=== PATIENT | female | born 1950 | race Caucasian/White ===

== ENCOUNTER 2018-05-30 21:38 | Inpatient (IN) ==
[2018-05-30] MEDS ORDERED: Sod Chloride 0.9% Inj 1,000 ML IV.SIG ONE (22:12)
--- NOTE | 2018-05-30 22:24 | ED ---
HPI General Chief complaint: Weakness Stated complaint: Gen weakness/Evac Time Seen by Provider: 05/30/18 21:42 Source: patient and EMS Mode of arrival: EMS Limitations: no limitations History of Present Illness HPI Narrative: 67-year-old female that presents to the ED for evaluation of weakness. Per ambulance report and patient she has not been able to get up and has been feeling weak for about 2-3 weeks now. Per patient for the past today she has not been able to get up at all. She gets care through her family has been doing okay except for the past 2 days. Per patient today she tried to get up of her bed but she was not successful and made only 2 steps and had to stop on the floor. She states that she has no pain but she just feels weak on her legs. Per report that I was given as well as per patient she is noted some swelling on her abdomen as well as some redness. Unclear if this is being treated. She does have a history of diabetes and high blood pressure and takes medications for them but apparently she has been house being her medications as she does not have enough money to get her refills. She denies any other medical issues. No chest pain or shortness of breath. No head injury. Denies take any blood thinners. She states that she feels weak to her legs especially. She apparently did not want to come to the hospital but as patient was not able to get up on her own she was brought here for evaluation. Denies any pain. Related Data Home Medications Medication Instructions Recorded Confirmed citalopram 20 mg PO DAILY 05/30/18 05/30/18 glipizide 5 mg PO BID 05/30/18 05/30/18 lisinopril-hydrochlorothiazide 1 tab PO DAILY 05/30/18 05/30/18 lorazepam 0.5 mg PO DAILY 05/30/18 05/30/18 metformin 1,000 mg PO BID 05/30/18 05/30/18 simvastatin 40 mg PO QPM 05/30/18 05/30/18 Allergies Allergy/AdvReac Type Severity Reaction Status Date / Time No Known Allergies Allergy Verified 05/30/18 22:08 Review of Systems ROS Unobtainable All other systems reviewed negative except as stated in HPI PMFSH History History Provided By: Patient Social History Social History Substance History: No History of Abuse Smoking Status: Current every day smoker Tobacco Type: Cigarettes How Often Do You Have a Drink Containing Alcohol: Never Recent Travel in [facility] within the Last 8 Weeks: No Recent Out of Country Travel within the Last 8 Weeks: No Exam Narrative Exam Narrative: GENERAL: Morbidly obese SKIN: Focused skin assessment warm/dry. She has an area of erythema and swelling on her umbilicus as well as on her abdomen. HEAD: Atraumatic. Normocephalic. EYES: Pupils equal and round 4 mm reactive to light and accommodation. No scleral icterus. No injection or drainage. ENT: No nasal bleeding or discharge. Mucous membranes pink and moist. Tongue is midline. No uvula deviation. NECK: Trachea midline. No JVD. CARDIOVASCULAR: Regular rate and rhythm. No murmur appreciated. RESPIRATORY: No accessory muscle use. Clear to auscultation. Breath sounds equal bilaterally. GASTROINTESTINAL: Abdomen soft, non-tender, nondistended. Hepatic and splenic margins not palpable. MUSCULOSKELETAL: No obvious deformities. No clubbing. No cyanosis. No edema. Full range of motion of the upper and lower extremities bilaterally. 2+ pulses bilaterally. NEUROLOGICAL: Awake and alert. No obvious cranial nerve deficits. Motor grossly within normal limits. Normal speech. PSYCHIATRIC: Appropriate mood and affect; insight and judgment normal. Course Consultations Consultation #1: The patient's case including history, pertinent physical examination findings, and laboratory studies were discussed with dr. Soto. It was agreed that the patient would be admitted to the hospitalist service. Initial Documented Vital Signs Temperature 99.0 F 05/30/18 22:00 Pulse Rate 86 05/30/18 22:00 Respiratory Rate 28 H 05/30/18 22:00 Blood Pressure 102/51 L 05/30/18 22:00 Pulse Oximetry 82 L 05/30/18 22:00 Last Documented Vital Signs Temperature 99.0 F 05/30/18 22:00 Pulse Rate 85 05/31/18 03:11 Respiratory Rate 18 05/31/18 03:11 Blood Pressure 104/64 05/31/18 03:11 Pulse Oximetry 97 05/31/18 03:11 Medical Decision Making LARY Attestation LARY supervised visit: Yes Attestation: I, , have reviewed the advance practice practitioner's documentation and am in agreement, met with the patient face to face, made the diagnosis, and the medical decision making was done by me. The patient was initially evaluated by mary jo Cerrato PA. Please see their complete history and physical. *My assessment and Findings: The patient presents with generalized weakness that has been progressive over the last 3 weeks. The patient's examination is remarkable for generalized weakness. The patient is also noted to have what appears to be an skin infection involving the umbilicus. During the course of the patient's emergency department visit, the patient's history, examination, and differential diagnosis were reviewed with the patient. The patient was placed on a classroom monitor with oximetry and frequent blood pressure monitoring. The patient had IV access obtained and blood work sent for analysis. The patient's laboratory studies were reviewed and remarkable for a white count of 8.8, hemoglobin 13.7, platelets 190 with 87.8 neutrophils, PT 7.3, PTT 22.4, chemistry is remarkable for a troponin I within normal limits, CPK 107 with a normal MB, total protein 6.1, glucose 137, potassium 5.8 which will be monitored closely, creatinine 2.59, chloride 109, BUN 89. BNP is 437 with a chest x-ray that shows cardiomegaly with diffuse increased interstitial markings likely related to edema. The patient's fluid resuscitation will be monitored closely. Urinalysis shows evidence of infection with many WBC clumps , 53 RBCs 100 protein moderate occult blood, large leukocyte Estrace, turbid appearing urine, many bacteria. Culture is indicated. The patient was started on Rocephin 1 g IV lactic acid was within normal limits at 1.7. CT scan of the abdomen and pelvis showed cholelithiasis, colonic diverticulosis, prominent uterus with what appears to be a fibroid, large fat-containing left- sided anterior abdominal wall hernia, diffuse soft tissue edema in the upper abdominal pannus. CT scan of the brain shows no acute intracranial abnormality. The patient's results were discussed with the patient, including the plan of care. I explained that further testing and/ or monitoring is indicated based on the patient's history, examination, and/ or laboratory findings. Therefore, I recommended admission for additional evaluation. The patient expressed understanding and was agreeable with this plan. The patient was admitted to the hospital in guarded condition and sent to a bed under the care of [facility] service. MDM Narrative Medical decision making narrative: 67-year-old female that presents to the ED for evaluation of weakness. Patient was properly examined and was found to have signs and symptoms consistent appears to be weakness. Unclear etiology. She does appear to have what appears to be infection to her umbilicus possibly to her abdomen. She is diabetic. She is also very morbidly obese. At this time labs and imaging were ordered. Started on IV fluids. No sign of sepsis however with normal vitals. Will sign out to my attending pending disposition. Differential Diagnosis Differential Diagnosis: Generalized weakness versus weakness versus sepsis versus cellulitis versus inability to ambulate versus head injury Medical Records Medical records reviewed: Yes I reviewed the patient's medical records. No medical records available. Lab Data Result diagrams: 05/30/18 22:21 05/30/18 22:21 Lab Results 05/30/18 05/30/18 05/30/18 Range/Units 22:21 22:21 22:21 WBC 8.8 (4.0-11.0) th/mm3 RBC 4.84 (4.00-5.30) mil/mm3 Hgb 13.7 (11.6-15.3) gm/dL Hct 43.8 (35.0-46.0) % MCV 90.4 (80.0-100.0) fL MCH 28.2 (27.0-34.0) pg MCHC 31.2 L (32.0-36.0) % RDW 16.8 (11.6-17.2) % Plt Count 190 (150-450) th/mm3 MPV 7.6 (7.0-11.0) fL Neut % (Auto) 87.8 H (16.0-70.0) % Lymph % (Auto) 4.5 L (9.0-44.0) % [place] % (Auto) 7.2 (0.0-8.0) % Eos % (Auto) 0.2 (0.0-4.0) % Baso % (Auto) 0.3 (0.0-2.0) % Neut # (Auto) 7.8 H (1.8-7.7) th/mm3 Lymph # (Auto) 0.4 L (1.0-4.8) th/mm3 [place] # (Auto) 0.6 (0.0-0.9) th/mm3 Eos # (Auto) 0.0 (0.0-0.4) th/mm3 Baso # (Auto) 0.0 (0.0-0.2) th/mm3 WBC Differential . Differential Comment Auto diff final PT 11.3 (9.8-11.6) sec INR 1.1 Ratio APTT 22.4 L (24.3-30.1) sec Sodium (136-145) meq/L Potassium (3.5-5.1) meq/L Chloride (98-107) meq/L Carbon Dioxide (21.0-32.0) meq/L Anion Gap (5-15) meq/L BUN (7-18) mg/dL Creatinine (0.50-1.00) mg/dL Estimated GFR (>89) mL/min Random Glucose (74-106) mg/dL Lactic Acid (0.4-2.0) mmol/L Calcium (8.5-10.1) mg/dL Magnesium 2.4 (1.5-2.5) mg/dL Total Bilirubin (0.2-1.0) mg/dL AST (15-37) U/L ALT (10-53) U/L Alkaline Phosphatase (45-117) U/L Total Creatine Kinase 113 (26-192) U/L CK-MB (CK-2) 2.8 (0.5-3.6) ng/mL Troponin I 0.05 (0.02-0.05) ng/mL B-Natriuretic Peptide (0-100) pg/mL Total Protein (6.4-8.2) g/dL Albumin (3.4-5.0) g/dL Urine Color (Yellw/Straw) Urine Clarity (Clear) Urine pH (5.0-8.5) Ur Specific [place] (1.002-1.035) Urine Protein (Neg-Trace) mg/dL Urine Glucose (UA) (Negative) mg/dL Urine Ketones (Negative) mg/dL Urine Occult Blood (Negative) Urine Nitrate (Negative) Urine Bilirubin (Negative) Urine Urobilinogen (Less than 2) mg/dL Ur Leukocyte Esterase (Negative) Urine RBC (0-3) /hpf Urine WBC (0-5) /hpf Urine WBC Clumps (None) Ur Squamous Epith Cells (0-5) /hpf Amorphous Sediment (None) /hpf Urine Bacteria (None) /hpf Hyaline Casts (0-3) /lpf WBC Casts (None) /lpf Urine Mucus (Occasional) /lpf Micro UA Comment Urine Culture Comments 05/30/18 05/30/18 05/30/18 Range/Units 22:21 22:21 22:21 WBC (4.0-11.0) th/mm3 RBC (4.00-5.30) mil/mm3 Hgb (11.6-15.3) gm/dL Hct (35.0-46.0) % MCV (80.0-100.0) fL MCH (27.0-34.0) pg MCHC (32.0-36.0) % RDW (11.6-17.2) % Plt Count (150-450) th/mm3 MPV (7.0-11.0) fL Neut % (Auto) (16.0-70.0) % Lymph % (Auto) (9.0-44.0) % [place] % (Auto) (0.0-8.0) % Eos % (Auto) (0.0-4.0) % Baso % (Auto) (0.0-2.0) % Neut # (Auto) (1.8-7.7) th/mm3 Lymph # (Auto) (1.0-4.8) th/mm3 [place] # (Auto) (0.0-0.9) th/mm3 Eos # (Auto) (0.0-0.4) th/mm3 Baso # (Auto) (0.0-0.2) th/mm3 WBC Differential Differential Comment PT (9.8-11.6) sec INR Ratio APTT (24.3-30.1) sec Sodium 143 (136-145) meq/L Potassium 5.8 H (3.5-5.1) meq/L Chloride 109 H (98-107) meq/L Carbon Dioxide 25.2 (21.0-32.0) meq/L Anion Gap 9 (5-15) meq/L BUN 89 H (7-18) mg/dL Creatinine 2.59 H (0.50-1.00) mg/dL Estimated GFR 18 L (>89) mL/min Random Glucose 134 H (74-106) mg/dL Lactic Acid 1.7 (0.4-2.0) mmol/L Calcium 8.0 L (8.5-10.1) mg/dL Magnesium (1.5-2.5) mg/dL Total Bilirubin 0.3 (0.2-1.0) mg/dL AST 15 (15-37) U/L ALT 20 (10-53) U/L Alkaline Phosphatase 61 (45-117) U/L Total Creatine Kinase (26-192) U/L CK-MB (CK-2) (0.5-3.6) ng/mL Troponin I (0.02-0.05) ng/mL B-Natriuretic Peptide 437 H (0-100) pg/mL Total Protein 6.1 L (6.4-8.2) g/dL Albumin 3.0 L (3.4-5.0) g/dL Urine Color (Yellw/Straw) Urine Clarity (Clear) Urine pH (5.0-8.5) Ur Specific [place] (1.002-1.035) Urine Protein (Neg-Trace) mg/dL Urine Glucose (UA) (Negative) mg/dL Urine Ketones (Negative) mg/dL Urine Occult Blood (Negative) Urine Nitrate (Negative) Urine Bilirubin (Negative) Urine Urobilinogen (Less than 2) mg/dL Ur Leukocyte Esterase (Negative) Urine RBC (0-3) /hpf Urine WBC (0-5) /hpf Urine WBC Clumps (None) Ur Squamous Epith Cells (0-5) /hpf Amorphous Sediment (None) /hpf Urine Bacteria (None) /hpf Hyaline Casts (0-3) /lpf WBC Casts (None) /lpf Urine Mucus (Occasional) /lpf Micro UA Comment Urine Culture Comments 05/30/18 05/31/18 Range/Units 22:56 00:50 WBC (4.0-11.0) th/mm3 RBC (4.00-5.30) mil/mm3 Hgb (11.6-15.3) gm/dL Hct (35.0-46.0) % MCV (80.0-100.0) fL MCH (27.0-34.0) pg MCHC (32.0-36.0) % RDW (11.6-17.2) % Plt Count (150-450) th/mm3 MPV (7.0-11.0) fL Neut % (Auto) (16.0-70.0) % Lymph % (Auto) (9.0-44.0) % [place] % (Auto) (0.0-8.0) % Eos % (Auto) (0.0-4.0) % Baso % (Auto) (0.0-2.0) % Neut # (Auto) (1.8-7.7) th/mm3 Lymph # (Auto) (1.0-4.8) th/mm3 [place] # (Auto) (0.0-0.9) th/mm3 Eos # (Auto) (0.0-0.4) th/mm3 Baso # (Auto) (0.0-0.2) th/mm3 WBC Differential Differential Comment PT (9.8-11.6) sec INR Ratio APTT (24.3-30.1) sec Sodium (136-145) meq/L Potassium (3.5-5.1) meq/L Chloride (98-107) meq/L Carbon Dioxide (21.0-32.0) meq/L Anion Gap (5-15) meq/L BUN (7-18) mg/dL Creatinine (0.50-1.00) mg/dL Estimated GFR (>89) mL/min Random Glucose (74-106) mg/dL Lactic Acid (0.4-2.0) mmol/L Calcium (8.5-10.1) mg/dL Magnesium (1.5-2.5) mg/dL Total Bilirubin (0.2-1.0) mg/dL AST (15-37) U/L ALT (10-53) U/L Alkaline Phosphatase (45-117) U/L Total Creatine Kinase 107 (26-192) U/L CK-MB (CK-2) 2.9 (0.5-3.6) ng/mL Troponin I 0.05 (0.02-0.05) ng/mL B-Natriuretic Peptide (0-100) pg/mL Total Protein (6.4-8.2) g/dL Albumin (3.4-5.0) g/dL Urine Color Yellow (Yellw/Straw) Urine Clarity Turbid H (Clear) Urine pH 5.0 (5.0-8.5) Ur Specific [place] 1.016 (1.002-1.035) Urine Protein 100 H (Neg-Trace) mg/dL Urine Glucose (UA) Negative (Negative) mg/dL Urine Ketones Negative (Negative) mg/dL Urine Occult Blood Moderate H (Negative) Urine Nitrate Negative (Negative) Urine Bilirubin Negative (Negative) Urine Urobilinogen Less than 2 (Less than 2) mg/dL Ur Leukocyte Esterase Large H (Negative) Urine RBC 53 H (0-3) /hpf Urine WBC (0-5) /hpf Urine WBC Clumps Many H (None) Ur Squamous Epith Cells 25 (0-5) /hpf Amorphous Sediment Rare H (None) /hpf Urine Bacteria Many H (None) /hpf Hyaline Casts 21 (0-3) /lpf WBC Casts 21 (None) /lpf Urine Mucus Moderate H (Occasional) /lpf Micro UA Comment Culture indicated Urine Culture Comments Culture indicated Imaging Data Radiologist's impression: ITS Impressions Chest X-Ray 05/30/18 22:09 CONCLUSION: Cardiomegaly. Diffuse increased interstitial markings likely related to edema. Increased density at the left base with silhouetting of the left hemidiaphragm secondary to left base atelectasis, consolidation and/or effusion. Abdomen/Pelvis CT 05/31/18 00:00 CONCLUSION: 1. Cholelithiasis. 2. Colonic diverticulosis without definitive evidence for diverticulitis. 3. Prominent uterus with hypodense 6 cm mass anteriorly likely reflecting a pedunculated fibroid. 4. Appendix is not visualized and potentially obscured by the uterine fibroid. 5. Large fat-containing left-sided anterior abdominal wall hernia. 6. Diffuse soft tissue edema in the inferior abdominal pannus. Head CT 05/31/18 00:00 CONCLUSION: 1. No acute intracranial abnormality. 2. Minimal paranasal sinus mucosal disease. ECG Data Attestation: I personally reviewed and interpreted this ECG as follows: Interpretation: The patient had an EKG done that showed a sinus rhythm with occasional ectopic premature complexes, heart rate of 87, QRS duration 77 ms, QTC 395 ms. T waves are inverted in lead III, V1, V2. No acute ST segment elevation. Discharge Plan Discharge Disposition Patient Disposition: 30 Still Patient Discharge Details Discharge Problem: Acute kidney injury, Acute UTI (urinary tract infection) Physicians Team ED Provider: Steve,Natacha D ED Midlevel Provider: Saqib Wise Primary Care Provider: Primary Care Lili Erickson Attending Provider: Awa Soto Status ED Status: Admitted Observation Patient
--- NOTE | 2018-05-30 22:38 | XR ---
EXAM DATE: 05/30/2018 10:27 PM EDT AGE/SEX: 67 years / Female INDICATIONS: Short of breath. CLINICAL DATA: This is the patient's initial encounter. Patient reports that signs and symptoms have been present for 1 day and indicates a pain score of 0/10. MEDICAL/SURGICAL HISTORY: None. None. COMPARISON: No prior exams available for comparison. FINDINGS: The heart size is enlarged. The lungs are essentially diffuse increased initial markings. There is in creased density at the left base with silhouetting the left hemidiaphragm. CONCLUSION: Cardiomegaly. Diffuse increased interstitial markings likely related to edema. Increased density at the left base with silhouetting of the left hemidiaphragm secondary to left base atelectasis, consolidation and/or effusion. Electronically signed by: Tone Montejo MD 05/30/2018 10:36 PM EDT
[2018-05-30 22:46] LABS: Baso % (Auto) 0.3 % (0.0-2.0); Eos % (Auto) 0.2 % (0.0-4.0); Hematocrit 43.8 % (35.0-46.0); Hemoglobin 13.7 gm/dL (11.6-15.3); Lymph # (Auto) 0.4 th/mm3 (1.0-4.8); Lymph % (Auto) 4.5 % (9.0-44.0); Mean Corpuscular HGB Conc 31.2 % (32.0-36.0); Mean Corpuscular Hemoglobin 28.2 pg (27.0-34.0); Mean Corpuscular Volume 90.4 fL (80.0-100.0); Mean Platelet Volume 7.6 fL (7.0-11.0); Mono # (Auto) 0.6 th/mm3 (0.0-0.9); Mono % (Auto) 7.2 % (0.0-8.0); Neut # (Auto) 7.8 th/mm3 (1.8-7.7); Neut % (Auto) 87.8 % (16.0-70.0); Platelet Count 190 th/mm3 (150-450); Red Blood Count 4.84 mil/mm3 (4.00-5.30); Red Cell Distribution Width 16.8 % (11.6-17.2); White Blood Count 8.8 th/mm3 (4.0-11.0)
[2018-05-30 22:52] LABS: Activated Partial Thrombo Time 22.4 sec (24.3-30.1); INR 1.1 Ratio; Prothrombin Time 11.3 sec (9.8-11.6)
[2018-05-30 23:11] LABS: Alanine Aminotransferase 20 U/L (10-53); Anion Gap 9 meq/L (5-15); Aspartate Aminotransferase 15 U/L (15-37); Blood Urea Nitrogen 89 mg/dL (7-18); Carbon Dioxide 25.2 meq/L (21.0-32.0); Chloride 109 meq/L (98-107); Glomerular Filtration Rate 18 mL/min (>89); Glucose,Random 134 mg/dL (74-106); Potassium 5.8 meq/L (3.5-5.1); Sodium 143 meq/L (136-145)
[2018-05-30 23:13] LABS: Alkaline Phosphatase 61 U/L (45-117); Total Protein 6.1 g/dL (6.4-8.2)
[2018-05-30 23:22] LABS: Amorphous Sediment,Urine Rare /hpf; Bacteria,Urine Many /hpf; Bilirubin,Urine Negative (Negative); Clarity,Urine Turbid (Clear); Color,Urine Yellow (Yellw/Straw); Glucose,Urine (UA) Negative (Negative); Hyaline Casts,Urine 21 /lpf (0-3); Leukocyte Esterase,Urine Large (Negative); Mucus,Urine Moderate /lpf (Occasional); Nitrite,Urine Negative (Negative); Specific Gravity,Urine 1.016 (1.002-1.035); Squamous Epithelial Cell,Urine 25 /hpf (0-5)
--- NOTE | 2018-05-31 00:45 | CT ---
EXAM DATE: 05/31/2018 12:32 AM EDT AGE/SEX: 67 years / Female INDICATIONS: Generalized weakness. CLINICAL DATA: This is the patient's initial encounter. Patient reports that signs and symptoms have been present for 1 day and indicates a pain score of 5/10. MEDICAL/SURGICAL HISTORY: None. None. RADIATION DOSE: 56.35 CTDI (mGy) COMPARISON: No prior exams available for comparison. TECHNIQUE: CT of the head without contrast. Using automated exposure control and adjustment of the mA and/or kV according to patient size, radiation dose was kept as low as reasonably achievable to ob tain optimal diagnostic quality images. DICOM format image data is available electronically for revi ew and comparison. FINDINGS: Cerebrum: Moderate diffuse cerebral atrophy. The ventricles are normal for degree of atrophy. No susanne dence of midline shift, mass lesion, hemorrhage or acute infarction. No extraaxial fluid collections are seen. Posterior Fossa: The cerebellum and brainstem are intact. The 4th ventricle is midline. The cerebe llopontine angle is unremarkable. Extracranial: The visualized portion of the orbits is intact. Subtle mucosal partial thickening in t he inferior maxillary sinuses and left sphenoid sinus. Skull: The calvaria is intact. No evidence of skull fracture. CONCLUSION: 1. No acute intracranial abnormality. 2. Minimal paranasal sinus mucosal disease. Electronically signed by: Rip Roy MD 05/31/2018 12:44 AM EDT
[2018-05-31 00:53] LABS: Magnesium 2.4 mg/dL (1.5-2.5)
--- NOTE | 2018-05-31 00:53 | CT ---
EXAM DATE: 05/31/2018 12:34 AM EDT AGE/SEX: 67 years / Female INDICATIONS: Abdomen pain. CLINICAL DATA: This is the patient's initial encounter. Patient reports that signs and symptoms have been present for 4 - 6 days and indicates a pain score of 5/10. MEDICAL/SURGICAL HISTORY: None. None. RADIATION DOSE: 33.35 CTDI (mGy) ; Patient body habitus COMPARISON: No prior exams available for comparison. TECHNIQUE: Multiple contiguous axial images were obtained through the abdomen. Images were obtained using multiple row detector helical technique. Using automated exposure control and adjustment of the mA and/or kV according to patient size, radiation dose was kept as low as reasonably achievable to o btain optimal diagnostic quality images. DICOM format image data is available electronically for rev iew and comparison. FINDINGS: LOWER LUNGS: Groundglass opacities at the lung bases likely reflecting atelectasis. LIVER: Diffusely decreased hepatic density with mild hepatomegaly. Multiple gallstones in the gallbl adder which otherwise appears unremarkable by CT. SPLEEN: Homogeneous density without enlargement. PANCREAS: Unremarkable without mass or calcification. KIDNEYS: Kidneys are slightly asymmetric with slightly smaller left kidney. No radiopaque renal calc brigid or hydronephrosis. No significant contour deforming renal abnormality. ADRENAL GLANDS: Unremarkable. AORTA: Alyson-aneurysmal. BOWEL/MESENTERY: Scattered colonic diverticulosis without definitive inflammatory change to suggest diverticulitis. Appendix is not visualized and somewhat obscured by suspected pedunculated uterine fi broid. Bowel otherwise unremarkable without evidence for obstruction. No significant free fluid or dr ainable fluid collection in the abdomen. No free air or pneumatosis. ABDOMINAL WALL: Fat-containing left sided anterior abdominal infraumbilical hernia. Diffuse soft tis reji edema in the inferior abdominal pannus. RETROPERITONEUM: No evidence of adenopathy in the retrocrural, para-aortic, or deep pelvic regions. BLADDER: Decompressed. REPRODUCTIVE: Prominent in size with hypodense 6 cm mass anteriorly likely reflecting a pedunculated fibroid. BONY STRUCTURES: Degenerative spondylosis of the lumbar spine. CONCLUSION: 1. Cholelithiasis. 2. Colonic diverticulosis without definitive evidence for diverticulitis. 3. Prominent uterus with hypodense 6 cm mass anteriorly likely reflecting a pedunculated fibroid. 4. Appendix is not visualized and potentially obscured by the uterine fibroid. 5. Large fat-containing left-sided anterior abdominal wall hernia. 6. Diffuse soft tissue edema in the inferior abdominal pannus. Electronically signed by: Rip Roy MD 05/31/2018 12:51 AM EDT
[2018-05-31 00:55] LABS: Creatine Kinase 113 U/L (26-192); Troponin I 0.05 ng/mL (0.02-0.05)
[2018-05-31 01:08] LABS: Creatine Kinase MB 2.8 ng/mL (0.5-3.6)
[2018-05-31 01:34] LABS: Creatine Kinase 107 U/L (26-192); Troponin I 0.05 ng/mL (0.02-0.05)
[2018-05-31 01:49] LABS: Creatine Kinase MB 2.9 ng/mL (0.5-3.6)
[2018-05-31] MEDS ORDERED: Temazepam 15 MG Capsule PO PRN (02:53)
[2018-05-31] MEDS ORDERED: Acetaminophen 325 MG Tablet PO PRN (02:53)
[2018-05-31] MEDS ORDERED: Bisacodyl 10 MG Supp RECTAL PRN (02:53)
[2018-05-31] MEDS ORDERED: Dextrose 50% in Water 50 ML Vial IV.PUSH PRN ×2 (02:58→14:17)
[2018-05-31] MEDS: Insulin NovoLIN Regular Correctional Sugar Inj SQ SCH ×3 (03:29→18:09)
[2018-05-31] MEDS: Sod Chloride 0.9% Inj 1,000 ML IV.CONT SCH ×3 (03:30→20:52)
[2018-05-31] MEDS: Heparin - SQ 10,000 UNITS/ML Vial SQ SCH ×3 (03:41→20:51)
[2018-05-31] MEDS ORDERED: Citalopram 20 MG Tablet PO SCH (09:00)
[2018-05-31] MEDS ORDERED: Non-Formulary Drug (Lisinopril-Hydrochlorothiazide [Lisinopril-Hydrochlorothiazide] 1 TAB) PO SCH (09:00)
[2018-05-31] MEDS ORDERED: LORazepam 0.5 MG Tablet PO SCH (09:00)
[2018-05-31] MEDS: Senna/Docusate Sodium 8.6/50 MG Tablet PO SCH ×2 (09:17→20:51)
[2018-05-31 10:36] LABS: ABG Base Excess -3.1 mmol/L (-2-2); ABG PCO2 91 mmHg (38-42); ABG PO2 70 mmHg (61-120)
--- NOTE | 2018-05-31 10:43 | P.HPIM ---
History of Present Illness Primary Care Physician: No Primary Care Physician History of Present Illness: Mrs. Scott is a 67-year-old female. Family had this patient brought in because she was found to have weakness and lethargy. She cannot provide much history due to her lethargy. Urinary tract infection is discovered. She also has acute kidney injury. This patient is obese and may have hypoventilation syndrome especially in the setting of her current metabolic encephalopathy. Any form of exertion including turning the patient in bed has resulted in this patient having SVT up to the 130s. She is not meeting septic criteria at this point. Currently with oxygen she is hypoxic. ABG has been ordered and is pending. Further history cannot be directly obtained from the patient. - Diagnosis (1) Hypoxia (2) SVT (supraventricular tachycardia) (3) Acute kidney injury (4) Acute UTI (urinary tract infection) Inpatient Certification: I certify that the inpatient services were ordered in accordance with Medicare regulations governing the order. This includes certification that hospital inpatient services are reasonable and necessary and in the case of services not specified as inpatient-only under 42 CFR 419.22(n), that they are appropriately provided as inpatient services in accordance to with the 2-midnight benchmark under 43 CFR 412.3(e) Estimated Total Length of Stay (Days): 4 Plans for Post Hospital Care: SNF Review of Systems unobtainable due to mental condition, unobtainable due to mental status PMFSH - History History Provided By: Patient - Medical / Surgical Hx Neg / Unobtainable Medical Problems Denied: Unable to Obtain Surgical History: Unable to Obtain - Medical History Medical History: Medical History (Last Updated 05/31/18 @ 05:51 by Liz Beth) Diabetes Hypertension - Tobacco History Tobacco Use In Past 30 Days: Yes Smoking Status: Current every day smoker Tobacco Type: Cigarettes - Alcohol History How Often Do You Have a Drink Containing Alcohol: Never - Substance Use History Substance History: No History of Abuse - Travel History Recent Travel in the [place] Within the Last 8 Weeks: No Recent Travel Out of the Country Within the Last 8 Weeks: No - Immunization History Tetanus Immunization: Unsure Hx Influenza Vaccine This Season: No Medications and Allergies Active Medications: Active Medications Acetaminophen (Tylenol) 650 mg PO Q4H PRN PRN Reason: Temp > 100.4 Al Hydroxide/Mg Hydroxide (Milk Of Magnesia Liq) 30 ml PO Q12H PRN PRN Reason: Mild Constipation Bisacodyl (Dulcolax Supp) 10 mg RECTAL DAILY PRN PRN Reason: SEVERE CONSITIPATION Citalopram Hydrobromide (Celexa) 20 mg PO DAILY [facility] Last Admin: 05/31/18 09:17 Dose: Not Given Dextrose (D50w Vial) 50 ml IV.PUSH UNSCH PRN PRN Reason: PER HYPOGLYCEMIA PROTOCOL Glucagon (Glucagon Inj) 1 mg OTHER PRN PRN PRN Reason: for Hypoglycemia Protocol Heparin Sodium (Porcine) (Heparin Inj) 5,000 units SQ Q8H [facility] Last Admin: 05/31/18 03:41 Dose: 5,000 units Hydrochlorothiazide (Microzide) 12.5 mg PO DAILY [facility] Ceftriaxone Sodium 1,000 mg/ (Sodium Chloride) 100 mls @ 200 mls/hr IV.SIG Q24H [facility] Sodium Chloride (Ns Inj) 1,000 mls @ 150 mls/hr IV.CONT .Q6H40M [facility] Last Admin: 05/31/18 10:30 Dose: 150 mls/hr Insulin Human Regular (Novolin R Supplemental Scale) 0 units SQ ACHS AND 3AM [facility]; Protocol Last Admin: 05/31/18 08:19 Dose: Not Given Lactulose (Lactulose Liq) 30 ml PO DAILY PRN PRN Reason: SEVERE CONSITIPATION Lisinopril (Prinivil) 20 mg PO DAILY [facility] Non-Formulary Medication (Simvastatin [Simvastatin]) 40 mg PO QPM [facility] Ondansetron HCl (Zofran Inj) 4 mg IV.PUSH Q6H PRN PRN Reason: NAUSEA OR VOMITING Senna/Docusate Sodium (Maira-Colace) 1 tab PO BID [facility] Last Admin: 05/31/18 09:17 Dose: Not Given Sennosides (Senokot) 17.2 mg PO Q12H PRN PRN Reason: Moderate Constipation Allergies Allergy/AdvReac Type Severity Reaction Status Date / Time No Known Allergies Allergy Verified 05/30/18 22:08 Home Medications Medication Instructions Recorded Confirmed Type citalopram 20 mg PO DAILY 05/30/18 05/30/18 History glipizide 5 mg PO BID 05/30/18 05/30/18 History lisinopril-hydrochlorothiazide 1 tab PO DAILY 05/30/18 05/31/18 History lorazepam 0.5 mg PO DAILY 05/30/18 05/30/18 History metformin 1,000 mg PO BID 05/30/18 05/30/18 History simvastatin 40 mg PO QPM 05/30/18 05/30/18 History Exam Vital signs: Vital Signs 05/30/18 22:00 05/30/18 23:31 05/30/18 23:38 Temperature 99.0 F Pulse Rate 86 84 Respiratory Rate 28 H 24 Blood Pressure 102/51 L 111/58 L Pulse Oximetry 82 L 92 L 92 L 05/31/18 03:11 05/31/18 06:11 05/31/18 09:15 Temperature 98.0 F Pulse Rate 85 75 72 Respiratory Rate 18 18 14 Blood Pressure 104/64 106/52 L 113/56 L Pulse Oximetry 97 100 05/31/18 10:15 Temperature Pulse Rate 128 H Respiratory Rate 14 Blood Pressure 88/54 L Pulse Oximetry Intake & Output 05/30/18 05/31/18 05/31/18 18:59 06:59 18:59 Intake Total 100 / 100 1000 / 1000 Balance 100 / 100 1000 / 1000 Weight 158.757 kg Intake: IV 100 / 100 1000 / 1000 NS Inj 1,000 ML @ 150 mls/hr IV 1000 / 1000 .CONT .Q6H40M [facility] Rx#:[id number] Rocephin Inj 1,000 MG In NS Inj 100 / 100 100 ML @ 200 mls/hr IV.SIG ONCE ONE Rx#:[id number] Narrative: GENERAL: NAD, A&Ox0, severe obesity HEAD: Normocephalic. NECK: Supple, trachea midline. No lymphadenopathy. EYES: No scleral icterus. No injection or drainage. CARDIOVASCULAR: Regular rate and rhythm without murmurs, gallops, or rubs. RESPIRATORY: Breath sounds equal bilaterally. No accessory muscle use. GASTROINTESTINAL: Abdomen soft, non-tender, nondistended. MUSCULOSKELETAL: No cyanosis, or edema. SKIN: Warm and dry. Multiple skin scabs and left-sided superficial skin ulcers. NEURO: No focal neurological deficits. Results - Labs CBC & Chem 7: 05/30/18 22:21 05/30/18 22:21 Labs: Short CBC 05/30/18 Range/Units 22:21 WBC 8.8 (4.0-11.0) th/mm3 Hgb 13.7 (11.6-15.3) gm/dL Hct 43.8 (35.0-46.0) % Plt Count 190 (150-450) th/mm3 BMP 05/30/18 22:21 Sodium 143 Potassium 5.8 H Chloride 109 H Carbon Dioxide 25.2 BUN 89 H Creatinine 2.59 H Calcium 8.0 L Cardiac Enzymes 05/30/18 05/31/18 Range/Units 22:21 00:50 Total Creatine Kinase 113 107 (26-192) U/L CK-MB (CK-2) 2.8 2.9 (0.5-3.6) ng/mL Troponin I 0.05 0.05 (0.02-0.05) ng/mL Liver Function 05/30/18 Range/Units 22:21 Total Bilirubin 0.3 (0.2-1.0) mg/dL AST 15 (15-37) U/L ALT 20 (10-53) U/L Alkaline Phosphatase 61 (45-117) U/L Albumin 3.0 L (3.4-5.0) g/dL Urine 05/30/18 Range/Units 22:56 Urine Color Yellow (Yellw/Straw) Urine Clarity Turbid H (Clear) Urine pH 5.0 (5.0-8.5) Ur Specific [place] 1.016 (1.002-1.035) Urine Protein 100 H (Neg-Trace) mg/dL Urine Glucose (UA) Negative (Negative) mg/dL - Imaging Impressions Chest X-Ray 05/30/18 22:09 CONCLUSION: Cardiomegaly. Diffuse increased interstitial markings likely related to edema. Increased density at the left base with silhouetting of the left hemidiaphragm secondary to left base atelectasis, consolidation and/or effusion. Abdomen/Pelvis CT 05/31/18 00:00 CONCLUSION: 1. Cholelithiasis. 2. Colonic diverticulosis without definitive evidence for diverticulitis. 3. Prominent uterus with hypodense 6 cm mass anteriorly likely reflecting a pedunculated fibroid. 4. Appendix is not visualized and potentially obscured by the uterine fibroid. 5. Large fat-containing left-sided anterior abdominal wall hernia. 6. Diffuse soft tissue edema in the inferior abdominal pannus. Head CT 05/31/18 00:00 CONCLUSION: 1. No acute intracranial abnormality. 2. Minimal paranasal sinus mucosal disease. Caprini VTE Risk Assessment Caprini VTE Risk Assessment: Moderate/High Risk (score >= 2) Caprini Risk Assessment Model: Point Value = 1 Point Value = 2 Point Value = 3 Point Value = 5 Age 41-60 Minor surgery BMI > 25 kg/m2 Swollen legs Varicose veins or History of unexplained or recurrent spontaneous Oral contraceptives or hormone replacement Sepsis (< 1 month) Serious lung disease, including pneumonia (< 1 month) Abnormal pulmonary function Acute myocardial infarction Congestive heart failure (< 1 month) History of inflammatory bowel disease Medical patient at bed rest Age 61-74 Arthroscopic surgery Major open surgery (> 45 min) Laparoscopic surgery (> 45 min) Malignancy Confined to bed (> 72 hours) Immobilizing plaster cast Central venous access Age >= 75 History of VTE Family history of VTE Factor V Leiden Prothrombin [id number] Lupus anticoagulant Anticardiolipin antibodies Elevated serum homocysteine Heparin-induced thrombocytopenia Other congenital or acquired thrombophilia Stroke (< 1 month) Elective arthroplasty Hip, pelvis, or leg fracture Acute spinal cord injury (< 1 month) Prophylaxis Regimen: Total Risk Factor Score Risk Level Prophylaxis Regimen 0-1 Low Early ambulation 2 Moderate Order ONE of the following: *Sequential Compression Device (SCD) *Heparin 5000 units SQ BID 3-4 Higher Order ONE of the following medications: *Heparin 5000 units SQ TID *Enoxaparin/Lovenox 40 mg SQ daily (WT < 150 kg, CrCl > 30 mL/min) *Enoxaparin/Lovenox 30 mg SQ daily (WT < 150 kg, CrCl > 10-29 mL/min) *Enoxaparin/Lovenox 30 mg SQ BID (WT < 150 kg, CrCl > 30 mL/min) AND/OR *Sequential Compression Device (SCD) 5 or more Highest Order ONE of the following medications: *Heparin 5000 units SQ TID (Preferred with Epidurals) *Enoxaparin/Lovenox 40 mg SQ daily (WT < 150 kg, CrCl > 30 mL/min) *Enoxaparin/Lovenox 30 mg SQ daily (WT < 150 kg, CrCl > 10-29 mL/min) *Enoxaparin/Lovenox 30 mg SQ BID (WT < 150 kg, CrCl > 30 mL/min) AND *Sequential Compression Device (SCD) Assessment and Plan - Assessment (1) Hypoxia Code(s): R09.02 - Hypoxemia Status: Acute (2) SVT (supraventricular tachycardia) Code(s): I47.1 - Supraventricular tachycardia Status: Acute (3) Acute kidney injury Code(s): N17.9 - Acute kidney failure, unspecified Status: Acute (4) Acute UTI (urinary tract infection) Code(s): N39.0 - Urinary tract infection, site not specified Status: Acute - Plan 67-year-old female brought in secondary to weakness and lethargy Urinary tract infection Rocephin Follow urine cultures Acute kidney injury IV hydration Follow renal function Avoid nephrotoxins Lethargy Hypoxia Obtain ABG to evaluate for hypercarbia or hypoxia May need to initiate BiPAP Possible obesity contribution Oxygen supplementation Close monitoring of oxygen saturations SVT Follow on telemetry Avoid stimulants Treat infection Hypertension Continue baseline treatment Follow blood pressures Adjust treatments as needed Generalized weakness Once patient's more awake PT will begin DVT prophylaxis SCDs Subcutaneous heparin
[2018-05-31 12:51] LABS: ABG Base Excess -3.5 mmol/L (-2-2); ABG PCO2 81 mmHg (38-42); ABG PO2 84 mmHg (61-120)
[2018-05-31] MEDS ORDERED: Sod Chloride 0.9% Inj 1,000 ML IV.CONT SCH (13:05)
[2018-05-31] MEDS ORDERED: Etomidate Inj 40 MG/20 ML Vial IV.PUSH ONE (13:23)
[2018-05-31] MEDS ORDERED: Midazolam Inj 5 MG/ML 1 ML Vial ONE (13:23)
[2018-05-31] MEDS: Propofol 1000 mg/100 ml Inj 1,000 MG/100 ML BOTTLE IV.CONT PRN ×2 (14:00→18:06)
--- NOTE | 2018-05-31 14:06 | P.PCN ---
Date of procedure: 05/31/18 Pre-op diagnosis: Acute hypoxic, hypercarbic respiratory failure Post-op diagnosis: same Procedure: Endotracheal intubation Patient was placed in optimal position. Injection with 20 mg etomidate, 10 mg of Versed IV. Direct laryngoscopy with MAC 4 blade grade 1 view single attempt. Patient was intubated, tube placement confirmed with visualization of tube passing through the vocal cords, end-tidal CO2 color change. Chest x-ray is pending at this time. Patient tolerated procedure well Anesthesia: EBONY Surgeon: Smita Wayne
--- NOTE | 2018-05-31 14:11 | P.PCN ---
Date of procedure: 05/31/18 Pre-op diagnosis: resp failure, hypotension Post-op diagnosis: same Procedure: INDICATION: Hypotension PROCEDURE -left internal jugular central line, ultrasound-guided CONSENT: Emergency procedure due to hypotension lack of access PROCEDURE SUMMARY: Central line checklist completed, timeout completed. My hands were washed immediately prior to the procedure. I wore a surgical cap, mask with protective eyewear, full gown and sterile gloves throughout the procedure. The patient was placed in Trendelenburg position. LEFT / neck and chest region was prepped using chlorhexidine scrub and draped in sterile fashion using a three quarter sheet drape and sterile towels. The Internal Jugular vein was identified using the ultrasound. Anesthesia was achieved over the vein using 1% lidocaine. The introducer needle was inserted into the Internal Jugular vein under direct ultrasound visualization. Venous blood was withdrawn. The syringe was removed and a guidewire was advanced into the introducer needle. The guidewire was visualized in the Internal Jugular Vein by ultrasound. A small incision was made at the skin surface with a scalpel and the introducer needle was exchanged for a dilator over the guidewire. After appropriate dilation was obtained, the dilator was exchanged over the wire for a triple lumen, 7F, antibiotic coated central venous catheter. The wire was removed and the catheter was sutured in place at 19 cm. A sterile central line dressing was placed over the catheter at the insertion site. The patient tolerated the procedure without any hemodynamic compromise. At time of procedure completion, all ports aspirated and flushed properly. Post-procedure chest x-ray is pending at this time. Estimated blood loss is <2ml. Estimated blood loss (mL): 2 Condition: critical Disposition: ICU
[2018-05-31 14:31] LABS: Alanine Aminotransferase 17 U/L (10-53); Albumin 2.3 g/dL (3.4-5.0); Alkaline Phosphatase 51 U/L (45-117); Anion Gap 9 meq/L (5-15); Aspartate Aminotransferase 11 U/L (15-37); Blood Urea Nitrogen 89 mg/dL (7-18); Calcium 7.8 mg/dL (8.5-10.1); Carbon Dioxide 24.2 meq/L (21.0-32.0); Chloride 110 meq/L (98-107); Glomerular Filtration Rate 26 mL/min (>89); Glucose,Random 134 mg/dL (74-106); Potassium 5.6 meq/L (3.5-5.1); Sodium 143 meq/L (136-145); Total Protein 5.2 g/dL (6.4-8.2)
--- NOTE | 2018-05-31 14:53 | XR ---
EXAM DATE: 05/31/2018 2:47 PM EDT AGE/SEX: 67 years / Female INDICATIONS: Central line and ET tube placement. CLINICAL DATA: This is the patient's subsequent encounter. Patient reports that signs and symptoms h ave been present for 2 days and indicates a pain score of Nonresponsive. MEDICAL/SURGICAL HISTORY: None. None. COMPARISON: [facility] – [place], [place]ST 1V SINGLE AP, 05/30/2018. . FINDINGS: A single AP view of the chest demonstrates limited anatomic detail due to the patient's body habitus. Heart size is prominent. I believe the degree of interstitial edema has decreased from the prior. In addition, there is improving aeration in the left base where there was previously dense consolidatio n/effusion. Endotracheal tube is identified above the brittnee. Nasogastric tube enters the stomach and is curled b ack into the fundus. Left IJ central venous catheter. The tip is at the junction of the left and righ t brachiocephalic vein. No pneumothorax CONCLUSION: 1. Cardiomegaly with resolving interstitial edema and improving aeration in the left lung base. 2. Endotracheal tube appropriately positioned above the brittnee. Nasogastric tube is curled in the ga stric fundus and the left IJ central venous catheter is identified. At the junction of the left and r ight brachiocephalic vein. Electronically signed by: Kristofer Altamirano MD 05/31/2018 2:52 PM EDT
--- NOTE | 2018-05-31 14:53 | P.CONID ---
History of Present Illness Service: Infectious Disease Consult date: 05/31/18 Requesting Physician: Smita Wayne Reason for Consult: Evaluate patient with severe sepsis, UTI, and possible scabies Primary Care Provider: No Primary Care Physician History of Present Illness: Patient seen and examined. Records reviewed. Patient is intubated and unable to give any history. Patient is a 67-year-old female, lives at home with her son, brought into the hospital for evaluation of 2-3 week history of generalized weakness. According to the notes normally she can ambulate in her home using a walker. She was still able to do some ambulation, however for the past 2 days, patient apparently has not been able to get up. It was also noted that she was having some swelling in her abdomen and there was some mention of possible redness. There was no mention of any fever or chills. She has not been congested or coughing. She has not been complaining of any chest pain or any shortness of breath. There is been no nausea or vomiting, or complaints of any diarrhea or urinary complaints. She has known hypertension and diabetes, and there was mention that she has not been able to take her medications since she did not have any money to get her refills. She was initially admitted to the regular floor, and but she developed progressive lethargy, and she was transferred to the ICU. She has not been febrile. Her mental status continued to deteriorate, and she ended up getting intubated. Her chest x-ray showing opacity on the left base. She also has evidence of elevated creatinine, as well as hyperkalemia. Her urinalysis did show significant pyuria. She is getting fluid resuscitation. Currently her blood pressure is holding. Infectious disease consultation has been requested to evaluate the patient with severe sepsis, UTI, and possible scabies. Review of Systems unobtainable due to endotracheal tube Constitutional: Reports weakness PMFSH - History History Provided By: Patient - Medical / Surgical Hx Neg / Unobtainable Medical Problems Denied: Unable to Obtain - Medical History Medical History: Medical History (Last Updated 05/31/18 @ 14:38 by Makayla Duarte MD) Depression Diabetes Hypertension Hypertriglyceridemia - Tobacco History Tobacco Use In Past 30 Days: Yes Smoking Status: Never smoker Tobacco Type: Cigarettes - Alcohol History How Often Do You Have a Drink Containing Alcohol: Unable to Obtain - Substance Use History Substance History: Unable to Obtain - Travel History Recent Travel in the [place] Within the Last 8 Weeks: No Recent Travel Out of the Country Within the Last 8 Weeks: No - Immunization History Tetanus Immunization: Unsure Hx Influenza Vaccine This Season: No Medications and Allergies Active Medications: Active Medications Acetaminophen (Tylenol) 650 mg PO Q4H PRN PRN Reason: Temp > 100.4 Al Hydroxide/Mg Hydroxide (Milk Of Magnesia Liq) 30 ml PO Q12H PRN PRN Reason: Mild Constipation Albuterol (Duoneb Neb (Casie)) 1 ampul NEB Q6HR NEB CASIE Albuterol (Duoneb Neb (Prn)) 1 ampul NEB Q2HR NEB PRN PRN Reason: SHORTNESS OF BREATH Bisacodyl (Dulcolax Supp) 10 mg RECTAL DAILY PRN PRN Reason: SEVERE CONSITIPATION Chlorhexidine Gluconate (Peridex 0.12% Oral Kit) 15 ml OROPHARYNG BID@0800, 2000 [facility] Citalopram Hydrobromide (Celexa) 20 mg PO DAILY [facility] Last Admin: 05/31/18 09:17 Dose: Not Given Dextrose (D50w Vial) 50 ml IV.PUSH UNSCH PRN PRN Reason: PER HYPOGLYCEMIA PROTOCOL Dextrose (D50w Vial) 50 ml IV.PUSH UNSCH PRN PRN Reason: PER HYPOGLYCEMIA PROTOCOL Glucagon (Glucagon Inj) 1 mg OTHER PRN PRN PRN Reason: for Hypoglycemia Protocol Glucagon (Glucagon Inj) 1 mg OTHER PRN PRN PRN Reason: for Hypoglycemia Protocol Heparin Sodium (Porcine) (Heparin Inj) 5,000 units SQ Q8H [facility] Last Admin: 05/31/18 12:36 Dose: 5,000 units Hydrochlorothiazide (Microzide) 12.5 mg PO DAILY [facility] Last Admin: 05/31/18 11:04 Dose: Not Given Ceftriaxone Sodium 1,000 mg/ (Sodium Chloride) 100 mls @ 200 mls/hr IV.SIG Q24H [facility] Sodium Chloride (Ns Inj) 1,000 mls @ 100 mls/hr IV.CONT .Q10H [facility] Propofol (Diprivan 1000 Mg/100 Ml Inj) 1,000 mg in 100 mls @ 4.763 mls/hr IV.CONT TITRATE PRN; Protocol PRN Reason: Per Protocol Azithromycin 500 mg/ Sodium (Chloride) 250 mls @ 250 mls/hr IV.SIG Q24H [facility] Insulin Human Regular (Novolin R Supplemental Scale) 0 units SQ ACHS AND 3AM CASIE; Protocol Last Admin: 05/31/18 08:19 Dose: Not Given Insulin Human Regular (Novolin R Supplemental Scale) 0 units SQ Q6HR CASIE; Protocol Lactulose (Lactulose Liq) 30 ml PO DAILY PRN PRN Reason: SEVERE CONSITIPATION Lisinopril (Prinivil) 20 mg PO DAILY [facility] Methylprednisolone Sodium Succinate (Solumedrol Inj) 60 mg IV.PUSH Q12HR [facility] Non-Formulary Medication (Simvastatin [Simvastatin]) 40 mg PO QPM [facility] Ondansetron HCl (Zofran Inj) 4 mg IV.PUSH Q6H PRN PRN Reason: NAUSEA OR VOMITING Permethrin (Elimite 5% Cream) 1 applicatio TOPICAL ONCE ONE Stop: 05/31/18 14:27 Senna/Docusate Sodium (Maira-Colace) 1 tab PO BID [facility] Last Admin: 05/31/18 09:17 Dose: Not Given Sennosides (Senokot) 17.2 mg PO Q12H PRN PRN Reason: Moderate Constipation Allergies Allergy/AdvReac Type Severity Reaction Status Date / Time No Known Allergies Allergy Verified 05/30/18 22:08 Home Medications Medication Instructions Recorded Confirmed Type citalopram 20 mg PO DAILY 05/30/18 05/30/18 History glipizide 5 mg PO BID 05/30/18 05/30/18 History lisinopril-hydrochlorothiazide 1 tab PO DAILY 05/30/18 05/31/18 History lorazepam 0.5 mg PO DAILY 05/30/18 05/30/18 History metformin 1,000 mg PO BID 05/30/18 05/30/18 History simvastatin 40 mg PO QPM 05/30/18 05/30/18 History Exam Vital signs: Vital Signs 05/30/18 22:00 05/30/18 23:31 05/30/18 23:38 Temperature 99.0 F Pulse Rate 86 84 Respiratory Rate 28 H 24 Blood Pressure 102/51 L 111/58 L Pulse Oximetry 82 L 92 L 92 L 05/31/18 03:11 05/31/18 06:11 05/31/18 09:15 Temperature 98.0 F Pulse Rate 85 75 72 Respiratory Rate 18 18 14 Blood Pressure 104/64 106/52 L 113/56 L Pulse Oximetry 97 100 05/31/18 10:15 05/31/18 10:57 05/31/18 11:42 Temperature Pulse Rate 128 H 129 H Respiratory Rate 14 18 Blood Pressure 88/54 L 115/68 Pulse Oximetry 92 L 05/31/18 12:34 05/31/18 13:00 05/31/18 13:24 Temperature Pulse Rate 128 H Respiratory Rate 24 19 Blood Pressure 100/62 Pulse Oximetry 94 L 93 L 05/31/18 14:02 Temperature Pulse Rate Respiratory Rate 16 Blood Pressure Pulse Oximetry 96 Intake & Output 05/30/18 05/31/18 05/31/18 18:59 06:59 18:59 Intake Total 100 / 100 1000 / 1000 Balance 100 / 100 1000 / 1000 Weight 158.757 kg Intake: IV 100 / 100 1000 / 1000 NS Inj 1,000 ML @ 150 mls/hr IV 1000 / 1000 .CONT .Q6H40M CASIE Rx#:[id number] Rocephin Inj 1,000 MG In NS Inj 100 / 100 100 ML @ 200 mls/hr IV.SIG ONCE ONE Rx#:[id number] Narrative: GENERAL: Patient is a morbidly obese, well-developed female, unresponsive, on the vent. SKIN: Cool and dry. Has some purplish skin in neck folds and axilla. Has abdominal striae. Has dark reddish papules in both legs some are linear ramon. Has dry skin in all her toes and between her toes. Has some mild mottling both feet. Has excoriations in her mons pubis/suprapubic region. HEAD: Atraumatic. Normocephalic. No temporal wasting, or tenderness. EYES: [place] conjunctiva. Has bilateral conjunctival injection. Pupils equal, round and reactive to light. EARS, NOSE AND THROAT: Nose without bleeding or purulent nasal discharge. Mucous membranes moist. Orally intubated. NECK: Short and obese neck, supple, no meningeal signs CARDIOVASCULAR: Regular rate and rhythm. No murmurs, rubs or gallops heard RESPIRATORY: Decreased breath sounds both bases. ABDOMEN: Obese abdomen, soft, with striae, has large abdominal pannus, has obese mons pubis with excoriations, bowel sounds present and normoactive. No guarding. EXTREMITIES: No clubbing, pedal edema. Has mild mottling both feet. Rash as described in skin exam. Cool feet. NEUROLOGICAL: Unresponsive on the vent, no Babinski, no clonus PSYCHIATRIC: Unable to assess LINE LIJ: No evidence of infection, has several PIV Results - Labs CBC & Chem 7: 05/30/18 22:21 05/31/18 13:30 Labs: Laboratory Results - last 24 hr 05/30/18 05/30/18 05/30/18 22:21 22:21 22:21 WBC 8.8 RBC 4.84 Hgb 13.7 Hct 43.8 MCV 90.4 MCH 28.2 MCHC 31.2 L RDW 16.8 Plt Count 190 MPV 7.6 Neut % (Auto) 87.8 H Lymph % (Auto) 4.5 L Sherman % (Auto) 7.2 Eos % (Auto) 0.2 Baso % (Auto) 0.3 Neut # (Auto) 7.8 H Lymph # (Auto) 0.4 L Sherman # (Auto) 0.6 Eos # (Auto) 0.0 Baso # (Auto) 0.0 WBC Differential . Differential Comment Auto diff final PT 11.3 INR 1.1 APTT 22.4 L Puncture Site Patient Temperature O2 Saturation ABG pH ABG pCO2 ABG pO2 ABG HCO3 ABG O2 Content ABG Base Excess ABG Methemoglobin Calin Test Hemoglobin Carboxyhemoglobin O2 Delivery Device Liter Flow Vent Setting Inspired O2 Critical Value Sodium Potassium Chloride Carbon Dioxide Anion Gap BUN Creatinine Estimated GFR POC Glucose Random Glucose Lactic Acid Calcium Magnesium 2.4 Total Bilirubin AST ALT Alkaline Phosphatase Total Creatine Kinase 113 CK-MB (CK-2) 2.8 Troponin I 0.05 B-Natriuretic Peptide Total Protein Albumin Urine Color Urine Clarity Urine pH Ur Specific Sherwood Urine Protein Urine Glucose (UA) Urine Ketones Urine Occult Blood Urine Nitrate Urine Bilirubin Urine Urobilinogen Ur Leukocyte Esterase Urine RBC Urine WBC Urine WBC Clumps Ur Squamous Epith Cells Amorphous Sediment Urine Bacteria Hyaline Casts WBC Casts Urine Mucus Micro UA Comment Urine Culture Comments 05/30/18 05/30/18 05/30/18 22:21 22:21 22:21 WBC RBC Hgb Hct MCV MCH MCHC RDW Plt Count MPV Neut % (Auto) Lymph % (Auto) Sherman % (Auto) Eos % (Auto) Baso % (Auto) Neut # (Auto) Lymph # (Auto) Sherman # (Auto) Eos # (Auto) Baso # (Auto) WBC Differential Differential Comment PT INR APTT Puncture Site Patient Temperature O2 Saturation ABG pH ABG pCO2 ABG pO2 ABG HCO3 ABG O2 Content ABG Base Excess ABG Methemoglobin Calin Test Hemoglobin Carboxyhemoglobin O2 Delivery Device Liter Flow Vent Setting Inspired O2 Critical Value Sodium 143 Potassium 5.8 H Chloride 109 H Carbon Dioxide 25.2 Anion Gap 9 BUN 89 H Creatinine 2.59 H Estimated GFR 18 L POC Glucose Random Glucose 134 H Lactic Acid 1.7 Calcium 8.0 L Magnesium Total Bilirubin 0.3 AST 15 ALT 20 Alkaline Phosphatase 61 Total Creatine Kinase CK-MB (CK-2) Troponin I B-Natriuretic Peptide 437 H Total Protein 6.1 L Albumin 3.0 L Urine Color Urine Clarity Urine pH Ur Specific Sherwood Urine Protein Urine Glucose (UA) Urine Ketones Urine Occult Blood Urine Nitrate Urine Bilirubin Urine Urobilinogen Ur Leukocyte Esterase Urine RBC Urine WBC Urine WBC Clumps Ur Squamous Epith Cells Amorphous Sediment Urine Bacteria Hyaline Casts WBC Casts Urine Mucus Micro UA Comment Urine Culture Comments 05/30/18 05/31/18 05/31/18 22:56 00:50 08:18 WBC RBC Hgb Hct MCV MCH MCHC RDW Plt Count MPV Neut % (Auto) Lymph % (Auto) Sherman % (Auto) Eos % (Auto) Baso % (Auto) Neut # (Auto) Lymph # (Auto) Sherman # (Auto) Eos # (Auto) Baso # (Auto) WBC Differential Differential Comment PT INR APTT Puncture Site Patient Temperature O2 Saturation ABG pH ABG pCO2 ABG pO2 ABG HCO3 ABG O2 Content ABG Base Excess ABG Methemoglobin Calin Test Hemoglobin Carboxyhemoglobin O2 Delivery Device Liter Flow Vent Setting Inspired O2 Critical Value Sodium Potassium Chloride Carbon Dioxide Anion Gap BUN Creatinine Estimated GFR POC Glucose 123 H Random Glucose Lactic Acid Calcium Magnesium Total Bilirubin AST ALT Alkaline Phosphatase Total Creatine Kinase 107 CK-MB (CK-2) 2.9 Troponin I 0.05 B-Natriuretic Peptide Total Protein Albumin Urine Color Yellow Urine Clarity Turbid H Urine pH 5.0 Ur Specific Sherwood 1.016 Urine Protein 100 H Urine Glucose (UA) Negative Urine Ketones Negative Urine Occult Blood Moderate H Urine Nitrate Negative Urine Bilirubin Negative Urine Urobilinogen Less than 2 Ur Leukocyte Esterase Large H Urine RBC 53 H Urine WBC Urine WBC Clumps Many H Ur Squamous Epith Cells 25 Amorphous Sediment Rare H Urine Bacteria Many H Hyaline Casts 21 WBC Casts 21 Urine Mucus Moderate H Micro UA Comment Culture indicated Urine Culture Comments Culture indicated 05/31/18 05/31/18 05/31/18 10:30 12:50 13:30 WBC RBC Hgb Hct MCV MCH MCHC RDW Plt Count MPV Neut % (Auto) Lymph % (Auto) Sherman % (Auto) Eos % (Auto) Baso % (Auto) Neut # (Auto) Lymph # (Auto) Sherman # (Auto) Eos # (Auto) Baso # (Auto) WBC Differential Differential Comment PT INR APTT Puncture Site Left radial Left radial Patient Temperature 98.6 98.6 O2 Saturation 86 L* 92 ABG pH 7.08 L* 7.12 L* ABG pCO2 91 H* 81 H* ABG pO2 70 84 ABG HCO3 26 25 ABG O2 Content 17.1 18.3 ABG Base Excess -3.1 L -3.5 L ABG Methemoglobin 0.5 0.6 Calin Test Y Y Hemoglobin 14.1 14.2 Carboxyhemoglobin 2.8 2.8 O2 Delivery Device Nasal cannula Bipap Liter Flow 5.00 Vent Setting 15/5 Inspired O2 40 Critical Value Yes Yes Sodium 143 Potassium 5.6 H Chloride 110 H Carbon Dioxide 24.2 Anion Gap 9 BUN 89 H Creatinine 1.95 H Estimated GFR 26 L POC Glucose Random Glucose 134 H Lactic Acid Calcium 7.8 L Magnesium Total Bilirubin 0.2 AST 11 L ALT 17 Alkaline Phosphatase 51 Total Creatine Kinase CK-MB (CK-2) Troponin I B-Natriuretic Peptide Total Protein 5.2 L D Albumin 2.3 L D Urine Color Urine Clarity Urine pH Ur Specific [place] Urine Protein Urine Glucose (UA) Urine Ketones Urine Occult Blood Urine Nitrate Urine Bilirubin Urine Urobilinogen Ur Leukocyte Esterase Urine RBC Urine WBC Urine WBC Clumps Ur Squamous Epith Cells Amorphous Sediment Urine Bacteria Hyaline Casts WBC Casts Urine Mucus Micro UA Comment Urine Culture Comments - Imaging CONCLUSION: Cardiomegaly. Diffuse increased interstitial markings likely related to edema. Increased density at the left base with silhouetting of the left hemidiaphragm secondary to left base atelectasis, consolidation and/or effusion. Abdomen/Pelvis CT 05/31/18 00:00 CONCLUSION: 1. Cholelithiasis. 2. Colonic diverticulosis without definitive evidence for diverticulitis. 3. Prominent uterus with hypodense 6 cm mass anteriorly likely reflecting a pedunculated fibroid. 4. Appendix is not visualized and potentially obscured by the uterine fibroid. 5. Large fat-containing left-sided anterior abdominal wall hernia. 6. Diffuse soft tissue edema in the inferior abdominal pannus. Head CT 05/31/18 00:00 CONCLUSION: 1. No acute intracranial abnormality. 2. Minimal paranasal sinus mucosal disease. Assessment and Plan - Plan Impression Sepsis on presentation due to UTI, possible PNA L UTI, no gutiérrez Acute renal failure, likely multifactorial, dehydration, sepsis Respiratory failure, could have underlying ANIVAL due to morbid obesity, possibly PNA L - developed high pCo2 due to hypoventilation Rash looks like scabies Recommendation Follow C/S: blood, urine and sputum Agree with work-up Will also check legio and pneumo Ag IV Cefepime for GNR coverage Give dose of Vanco (GPC coverage including MRSA) and check level in AM Zithromax Rx scabies with permethrim Fluid resuscitation Monitor progress I will follow along with you D/W Dr Wayne ([facility]) D/W RN
--- NOTE | 2018-05-31 14:56 | P.CONCC ---
History of Present Illness Service: Critical care Consult date: 05/31/18 Requesting Physician: Talat Mckeon Reason for Consult: Acute hypoxemic and hypercarbic respiratory failure Primary Care Provider: No Primary Care Physician Chief Complaint: Altered mental status, sepsis History of Present Illness: Mrs. Scott is a 67-year-old female with past medical history significant for morbid obesity, type 2 diabetes, hypertension, probable COPD who was brought in by the family yesterday night because of increasing weakness and lethargic, this was ongoing for last 2 weeks got worse over the last 2 days. Unable to get detailed history from patient due to lethargy. ER workup showed patient had a urinary tract infection and sepsis, also chest x-ray showed bilateral interstitial infiltrates, and LLL consolidation. There is also evidence of acute kidney injury with creatinine up to 2.59, BUN 89. Intermittently having tachyarrhythmia/atrial flutter with rate in in 130s. Patient was admitted to the hospital service. At the time of hospitalist (Dr. Mckeon) evaluation patient was very lethargic and ABG showed a pH of 7.08 and a PCO2 of 91, PO2 was 70 on 5 L nasal cannula. Patient was immediately placed on BiPAP. Approximately after 45 minutes ABG was repeat showed only marginal improvement pH of 7.12 and PCO2 of 84. Patient was emergently transferred to the ICU and critical care was consulted I evaluated the patient in the ICU. She is currently on BiPAP 15/5. Patient is lethargic, even though arousable she falls right back to sleep. Airway protection was questionable. With severe hypercarbic respiratory failure complicated with sepsis, metabolic encephalopathy and acute kidney failure, decision was made to intubate the patient. I endotracheally intubate the patient in placed on the mechanical ventilation. Prior to and post intubation patient heart rate remained in 130s. Hypotensive postintubation, stat 2 L fluid boluses given. Also started on Levophed to keep map above 65. Patient had been placed on Rocephin and will discontinue this and start renally dosed cefepime, add azithromycin for atypical coverage. ID consulted for questionable scabies and sepsis with shock Review of Systems unobtainable due to mental condition, unobtainable due to mental status PMFSH - History History Provided By: Patient - Medical / Surgical Hx Neg / Unobtainable Medical Problems Denied: Unable to Obtain - Medical History Medical History: Medical History (Last Reviewed 05/31/18 @ 14:58 by Smita Wayne MD) Depression Diabetes Hypertension Hypertriglyceridemia - Tobacco History Tobacco Use In Past 30 Days: Yes Tobacco Type: Cigarettes - Alcohol History How Often Do You Have a Drink Containing Alcohol: Unable to Obtain - Substance Use History Substance History: Unable to Obtain - Travel History Recent Travel in the [place] Within the Last 8 Weeks: No Recent Travel Out of the Country Within the Last 8 Weeks: No - Immunization History Tetanus Immunization: Unsure Hx Influenza Vaccine This Season: No Medications and Allergies Active Medications: Active Medications Acetaminophen (Tylenol) 650 mg PO Q4H PRN PRN Reason: Temp > 100.4 Al Hydroxide/Mg Hydroxide (Milk Of Magnpadmaja Liq) 30 ml PO Q12H PRN PRN Reason: Mild Constipation Albuterol (Duoneb Neb (Casie)) 1 ampul NEB Q6HR NEB [facility] Albuterol (Duoneb Neb (Prn)) 1 ampul NEB Q2HR NEB PRN PRN Reason: SHORTNESS OF BREATH Bisacodyl (Dulcolax Supp) 10 mg RECTAL DAILY PRN PRN Reason: SEVERE CONSITIPATION Chlorhexidine Gluconate (Peridex 0.12% Oral Kit) 15 ml OROPHARYNG BID@0800, 2000 [facility] Citalopram Hydrobromide (Celexa) 20 mg PO DAILY [facility] Last Admin: 05/31/18 09:17 Dose: Not Given Dextrose (D50w Vial) 50 ml IV.PUSH UNSCH PRN PRN Reason: PER HYPOGLYCEMIA PROTOCOL Dextrose (D50w Vial) 50 ml IV.PUSH UNSCH PRN PRN Reason: PER HYPOGLYCEMIA PROTOCOL Glucagon (Glucagon Inj) 1 mg OTHER PRN PRN PRN Reason: for Hypoglycemia Protocol Glucagon (Glucagon Inj) 1 mg OTHER PRN PRN PRN Reason: for Hypoglycemia Protocol Heparin Sodium (Porcine) (Heparin Inj) 5,000 units SQ Q8H [facility] Last Admin: 05/31/18 12:36 Dose: 5,000 units Hydrochlorothiazide (Microzide) 12.5 mg PO DAILY [facility] Last Admin: 05/31/18 11:04 Dose: Not Given Ceftriaxone Sodium 1,000 mg/ (Sodium Chloride) 100 mls @ 200 mls/hr IV.SIG Q24H [facility] Sodium Chloride (Ns Inj) 1,000 mls @ 100 mls/hr IV.CONT .Q10H [facility] Propofol (Diprivan 1000 Mg/100 Ml Inj) 1,000 mg in 100 mls @ 4.763 mls/hr IV.CONT TITRATE PRN; Protocol PRN Reason: Per Protocol Azithromycin 500 mg/ Sodium (Chloride) 250 mls @ 250 mls/hr IV.SIG Q24H [facility] Insulin Human Regular (Novolin R Supplemental Scale) 0 units SQ ACHS AND 3AM [facility]; Protocol Last Admin: 05/31/18 08:19 Dose: Not Given Insulin Human Regular (Novolin R Supplemental Scale) 0 units SQ Q6HR [facility]; Protocol Lactulose (Lactulose Liq) 30 ml PO DAILY PRN PRN Reason: SEVERE CONSITIPATION Lisinopril (Prinivil) 20 mg PO DAILY [facility] Methylprednisolone Sodium Succinate (Solumedrol Inj) 60 mg IV.PUSH Q12HR [facility] Non-Formulary Medication (Simvastatin [Simvastatin]) 40 mg PO QPM [facility] Ondansetron HCl (Zofran Inj) 4 mg IV.PUSH Q6H PRN PRN Reason: NAUSEA OR VOMITING Permethrin (Elimite 5% Cream) 1 applicatio TOPICAL ONCE ONE Stop: 05/31/18 14:27 Senna/Docusate Sodium (Maira-Colace) 1 tab PO BID [facility] Last Admin: 05/31/18 09:17 Dose: Not Given Sennosides (Senokot) 17.2 mg PO Q12H PRN PRN Reason: Moderate Constipation Allergies Allergy/AdvReac Type Severity Reaction Status Date / Time No Known Allergies Allergy Verified 05/30/18 22:08 Home Medications Medication Instructions Recorded Confirmed Type citalopram 20 mg PO DAILY 05/30/18 05/30/18 History glipizide 5 mg PO BID 05/30/18 05/30/18 History lisinopril-hydrochlorothiazide 1 tab PO DAILY 05/30/18 05/31/18 History lorazepam 0.5 mg PO DAILY 05/30/18 05/30/18 History metformin 1,000 mg PO BID 05/30/18 05/30/18 History simvastatin 40 mg PO QPM 05/30/18 05/30/18 History Physical Exam Vital signs: Vital Signs 05/30/18 22:00 05/30/18 23:31 05/30/18 23:38 Temperature 99.0 F Pulse Rate 86 84 Respiratory Rate 28 H 24 Blood Pressure 102/51 L 111/58 L Pulse Oximetry 82 L 92 L 92 L 05/31/18 03:11 05/31/18 06:11 05/31/18 09:00 Temperature 98.0 F Pulse Rate 85 75 74 Respiratory Rate 18 18 15 Blood Pressure 104/64 106/52 L 86/52 L Pulse Oximetry 97 100 05/31/18 09:15 05/31/18 10:15 05/31/18 10:57 Temperature Pulse Rate 72 128 H 129 H Respiratory Rate 14 14 18 Blood Pressure 113/56 L 88/54 L 115/68 Pulse Oximetry 05/31/18 11:42 05/31/18 12:34 05/31/18 13:00 Temperature Pulse Rate 128 H Respiratory Rate 24 Blood Pressure 100/62 Pulse Oximetry 92 L 94 L 93 L 05/31/18 13:24 05/31/18 14:02 Temperature Pulse Rate Respiratory Rate 19 16 Blood Pressure Pulse Oximetry 96 Intake & Output 05/30/18 05/31/18 05/31/18 18:59 06:59 18:59 Intake Total 100 / 100 1000 / 1000 Balance 100 / 100 1000 / 1000 Weight 158.757 kg Intake: IV 100 / 100 1000 / 1000 NS Inj 1,000 ML @ 150 mls/hr IV 1000 / 1000 .CONT .Q6H40M [facility] Rx#:[id number] Rocephin Inj 1,000 MG In NS Inj 100 / 100 100 ML @ 200 mls/hr IV.SIG ONCE ONE Rx#:[id number] Narrative: GENERAL: Patient is a morbidly obese, unresponsive on BiPAP, appears very critical SKIN: Cool and dry. Tinea cruris, axillary region and under the breasts. Purple rash and excoriation bilateral lower extremity HEAD: Atraumatic. Normocephalic. No temporal wasting, or tenderness. EYES: Pupils equal, round and reactive to light. Extraocular movements are present EARS, NOSE AND THROAT: Edentulous. Mucous membranes dry. BiPAP mask limits exam. NECK: Short and obese neck, supple, no meningeal signs CARDIOVASCULAR: Tachycardic rate and rhythm, appears to be in atrial flutter with RVR. No murmurs, rubs or gallops heard RESPIRATORY: Currently on BiPAP, air entry diminished bilaterally ABDOMEN: Obese abdomen, soft, with multiple striae and excoriations EXTREMITIES: No clubbing, pedal edema. Has mild mottling both feet. Purple rash and excoriation bilateral lower extremity NEUROLOGICAL: Patient is very somnolent on BiPAP. Wakes up to sternal rub but falls right back to sleep. Able to move all 4 extremities. Septic Shock Reassessment Septic shock perfusion: reassessment completed Assessment and Plan - Assessment and Plan Plan: ASSESSMENT Acute hypoxemic hypercarbic respiratory failure Severe encephalopathy secondary to sepsis and hypercarbia Severe sepsis Hypotension Acute COPD exacerbation Probable pneumonia UTI Acute kidney failure Hypotension Atrial flutter with rapid ventricular response Type 2 diabetes Hypertension Morbid obesity PLAN NEURO: -Encephalopathy most likely secondary to hypercapnia and severe sepsis -Monitor neuro status closely-propofol for sedation and vent synchrony -Daily sedation vacation starting in 24 hours RESP: -Emergently intubated and placed on mechanical ventilation/PRVC/AC -DuoNeb every 6 hours scheduled and as needed -IV Solu-Medrol 60 mg every 12 -Check sputum culture, empiric antibiotics with cefepime, 1 dose of vancomycin and azithromycin -Follow-up ABG, start weaning trials as appropriate CV: -Normal saline IV fluids 2 L bolus, maintenance fluid normal saline at 75 mL/h -Levophed started to keep map above 65 -Await 2d echo -Give 1 dose of digoxin 250 mcg IV for rate control. Use esmolol drip if needed for rate control -Hold home medications lisinopril and hydrochlorothiazide -If persistent atrial flutter >24 hours, we will start IV heparin GI: -N.p.o., IV famotidine : -Monitor renal function closely. Place Chappell catheter. -Acute renal failure workup per nephrology, check renal ultrasound -Nephrology consulted, continue IV hydration as above ID: -ID consulted placed on cefepime and 1 dose of vancomycin, continue azithromycin -Follow-up on urine culture, check sputum culture -Permethrin cream 5% for possible scabies HEME: -Monitor CBC, CMP, coags ENDO: -Electrolyte replacement per protocol PROPH: -Bilateral lower extremity SCDs. Heparin subcu 5000 units every 8 hours. IV famotidine 20 mg every 12 LINES: -Left IJ central line placed CC time 77 min, excluding procedures Patient is very critical at this time. She has multiorgan dysfunction syndrome acute respiratory failure acute encephalopathy renal failure severe sepsis and hypotension. Prognosis is guarded, ventilator weaning will be difficult with severe super morbid obesity and ongoing smoking. Code Status: Full Discussed Condition With: Dr. Mckeon, bedside RN
[2018-05-31] MEDS ORDERED: Digoxin Inj 500 MCG/2 ML Ampul IV.PUSH ONE (15:36)
[2018-05-31 15:43] LABS: ABG Base Excess -6.6 mmol/L (-2-2); ABG PCO2 46 mmHg (38-42); ABG PO2 72 mmHG (61-120)
[2018-05-31] MEDS ORDERED: Sodium Bicarbonate 8.4% Inj 50 MEQ/50 ML Syringe ONE (15:49)
[2018-05-31] MEDS ORDERED: Vancomycin Inj 1,000 MG in Sodium Chlor 0.9% Inj 250 ML IV.SIG ONE (16:00)
[2018-05-31] MEDS ORDERED: Sodium Bicarbonate 8.4% Inj 50 MEQ/50 ML Syringe IV.PUSH ONE (16:00)
[2018-05-31] MEDS: Azithromycin Inj 500 MG in Sodium Chlor 0.9% Inj 250 ML IV.SIG SCH (16:22)
[2018-05-31] MEDS ORDERED: Sodium Polystyrene Sulfonate/Sorbitol Liq 15 GM/60 ML UDC PO ONE (16:30)
--- NOTE | 2018-05-31 16:45 | ECG ---
Date Performed: 05/31/2018 Time Performed: 16:02:11 PTAGE: 67 years EKG: ATRIAL FLUTTER/TACHYCARDIA POSSIBLE RIGHT VENTRICULAR HYPERTROPHY POSSIBLE ANTERIOR MYOCARD IAL INFARCTION , OF INDETERMINATE AGE Nonspecific T wave changes ABNORMAL ECG No significant change f rom prior electrocardiogram. PREVIOUS TRACING : 05/31/2018 10.21 DOCTOR: Fredrick Kline Interpretating Date/Time 05/31/2018 16:43:45
[2018-05-31] MEDS: MethylPREDNISolone Sod Succinate Inj 125 MG/2 ML Vial IV.PUSH SCH ×2 (16:46→20:50)
[2018-05-31] MEDS: Oral Hygiene Kit OROPHARYNG SCH (17:00)
--- NOTE | 2018-05-31 18:58 | ECG ---
Date Performed: 05/30/2018 Time Performed: 22:39:21 PTAGE: 67 years EKG: Sinus rhythm WITH OCCASIONAL ECTOPIC PREMATURE COMPLEXES POSSIBLE RIGHT VENTRICULAR HYPERTROPHY ABNORMAL ECG NO PREVIOUS TRACING DOCTOR: Bandar Garza Interpretating Date/Time 05/31/2018 18:57:32
--- NOTE | 2018-05-31 19:00 | ECG ---
Date Performed: 05/31/2018 Time Performed: 10:21:24 PTAGE: 67 years EKG: ATRIAL FLUTTER/TACHYCARDIA WITH RAPID VENTRICULAR RESPONSE POSSIBLE RIGHT VENTRICULAR HYPER TROPHY POSSIBLE ANTERIOR MYOCARDIAL INFARCTION ABNORMAL ECG PREVIOUS TRACING : 05/30/2018 22.39 When compared to prior ekg,patient is now in atrial flutter with rapid ventricular response DOCTOR: Bandar Garza Interpretating Date/Time 05/31/2018 18:58:42
--- NOTE | 2018-05-31 19:22 | P.CONNP ---
History of Present Illness Consult date: 05/31/18 Reason for Consult: Acute renal insufficiency. Primary Care Provider: No Primary Care Physician Chief Complaint: Altered mental status, sepsis History of Present Illness: 67-year-old morbidly obese female apparently with a history of diabetes and hypertension who had a two-week history of increasing lethargy and generalized weakness prior to admission yesterday. Unfortunately no previous renal indices are available to me. On presentation her creatinine was 2.59 with a potassium of 5.8. She has been seen by infectious disease and current working diagnosis is UTI with sepsis. She also apparently was not taking her medications at home secondary to financial issues. She was receiving IV hydration and improved to 1.95 with a potassium of 5.6 at time of consultation. Prinivil has been placed on hold. Unfortunately now intubated secondary to respiratory insufficiency with hypercapnia. Patient unable to provide any history. Review of Systems unobtainable due to mental status PMFSH - History History Provided By: Medical Record - Medical / Surgical Hx Neg / Unobtainable Medical Problems Denied: Unable to Obtain - Medical History Medical History: Medical History (Last Updated 05/31/18 @ 19:17 by Uche Narvaez MD) Depression Diabetes Hypertension Hypertriglyceridemia Morbid obesity - Tobacco History Tobacco Use In Past 30 Days: Yes Tobacco Type: Cigarettes - Alcohol History How Often Do You Have a Drink Containing Alcohol: Unable to Obtain - Substance Use History Substance History: Unable to Obtain - Travel History Recent Travel in the [place] Within the Last 8 Weeks: No Recent Travel Out of the Country Within the Last 8 Weeks: No - Immunization History Tetanus Immunization: Unsure Hx Influenza Vaccine This Season: No Medications and Allergies Active Medications: Active Medications Acetaminophen (Tylenol) 650 mg PO Q4H PRN PRN Reason: Temp > 100.4 Al Hydroxide/Mg Hydroxide (Milk Of Magnesia Liq) 30 ml PO Q12H PRN PRN Reason: Mild Constipation Albuterol (Duoneb Neb (Casie)) 1 ampul NEB Q6HR NEB [facility] Last Admin: 05/31/18 14:56 Dose: Not Given Albuterol (Duoneb Neb (Prn)) 1 ampul NEB Q2HR NEB PRN PRN Reason: SHORTNESS OF BREATH Bisacodyl (Dulcolax Supp) 10 mg RECTAL DAILY PRN PRN Reason: SEVERE CONSITIPATION Chlorhexidine Gluconate (Peridex 0.12% Oral Kit) 15 ml OROPHARYNG BID@0800, 2000 [facility] Citalopram Hydrobromide (Celexa) 20 mg PO DAILY [facility] Last Admin: 05/31/18 09:17 Dose: Not Given Dextrose (D50w Vial) 50 ml IV.PUSH UNSCH PRN PRN Reason: PER HYPOGLYCEMIA PROTOCOL Famotidine (Pepcid Pf Inj) 10 mg IV.PUSH Q12HR [facility] Glucagon (Glucagon Inj) 1 mg OTHER PRN PRN PRN Reason: for Hypoglycemia Protocol Heparin Sodium (Porcine) (Heparin Inj) 5,000 units SQ Q8H [facility] Last Admin: 05/31/18 12:36 Dose: 5,000 units Hydrochlorothiazide (Microzide) 12.5 mg PO DAILY [facility] Last Admin: 05/31/18 11:04 Dose: Not Given Propofol (Diprivan 1000 Mg/100 Ml Inj) 1,000 mg in 100 mls @ 4.763 mls/hr IV.CONT TITRATE PRN; Protocol PRN Reason: Per Protocol Last Titration: 05/31/18 18:36 Dose: 15 mcg/kg/min, 14.29 mls/hr Azithromycin 500 mg/ Sodium (Chloride) 250 mls @ 250 mls/hr IV.SIG Q24H [facility] Last Admin: 05/31/18 16:22 Dose: 250 mls/hr Cefepime HCl 2,000 mg/ Sodium (Chloride) 100 mls @ 200 mls/hr IV.SIG Q24H [facility] Last Admin: 05/31/18 18:09 Dose: 200 mls/hr Sodium Chloride (Ns Inj) 1,000 mls @ 75 mls/hr IV.CONT .[id number] [facility] Insulin Human Regular (Novolin R Supplemental Scale) 0 units SQ Q6HR [facility]; Protocol Last Admin: 05/31/18 18:09 Dose: Not Given Lactulose (Lactulose Liq) 30 ml PO DAILY PRN PRN Reason: SEVERE CONSITIPATION Lisinopril (Prinivil) 20 mg PO DAILY [facility] Methylprednisolone Sodium Succinate (Solumedrol Inj) 60 mg IV.PUSH Q12HR [facility] Last Admin: 05/31/18 16:46 Dose: 60 mg Ondansetron HCl (Zofran Inj) 4 mg IV.PUSH Q6H PRN PRN Reason: NAUSEA OR VOMITING Pravastatin Sodium (Pravachol) 80 mg PO QPM [facility] Senna/Docusate Sodium (Maira-Colace) 1 tab PO BID [facility] Last Admin: 05/31/18 09:17 Dose: Not Given Sennosides (Senokot) 17.2 mg PO Q12H PRN PRN Reason: Moderate Constipation Allergies Allergy/AdvReac Type Severity Reaction Status Date / Time No Known Allergies Allergy Verified 05/30/18 22:08 Home Medications Medication Instructions Recorded Confirmed Type citalopram 20 mg PO DAILY 05/30/18 05/30/18 History glipizide 5 mg PO BID 05/30/18 05/30/18 History lisinopril-hydrochlorothiazide 1 tab PO DAILY 05/30/18 05/31/18 History lorazepam 0.5 mg PO DAILY 05/30/18 05/30/18 History metformin 1,000 mg PO BID 05/30/18 05/30/18 History simvastatin 40 mg PO QPM 05/30/18 05/30/18 History Exam Vital signs: Vital Signs 05/30/18 22:00 05/30/18 23:31 05/30/18 23:38 Temperature 99.0 F Pulse Rate 86 84 Respiratory Rate 28 H 24 Blood Pressure 102/51 L 111/58 L Pulse Oximetry 82 L 92 L 92 L 05/31/18 03:11 05/31/18 06:11 05/31/18 09:00 Temperature 98.0 F Pulse Rate 85 75 74 Respiratory Rate 18 18 15 Blood Pressure 104/64 106/52 L 86/52 L Pulse Oximetry 97 100 05/31/18 09:15 05/31/18 10:15 05/31/18 10:57 Temperature Pulse Rate 72 128 H 129 H Respiratory Rate 14 14 18 Blood Pressure 113/56 L 88/54 L 115/68 Pulse Oximetry 05/31/18 11:00 05/31/18 11:42 05/31/18 12:34 Temperature Pulse Rate 128 H 128 H Respiratory Rate 20 24 Blood Pressure 109/59 L 100/62 Pulse Oximetry 93 L 92 L 94 L 05/31/18 13:00 05/31/18 13:24 05/31/18 14:02 Temperature Pulse Rate Respiratory Rate 19 16 Blood Pressure Pulse Oximetry 93 L 96 05/31/18 16:00 Temperature 98.3 F Pulse Rate 122 H Respiratory Rate 17 Blood Pressure 126/67 Pulse Oximetry 100 Intake & Output 05/31/18 05/31/18 06/01/18 06:59 18:59 06:59 Intake Total 100 / 100 1100 / 1100 Output Total 750 / 750 Balance 100 / 100 350 / 350 Weight 158.757 kg Intake: IV 100 / 100 1100 / 1100 Diprivan 1000 mg/100 ml Inj 1, 100 / 100 000 mg In 100 ml @ 5 MCG/KG/MIN 4.763 mls/hr IV.CONT TITRATE PRN Rx#:[id number] NS Inj 1,000 ML @ 150 mls/hr IV 1000 / 1000 .CONT .Q6H40M [facility] Rx#:[id number] Rocephin Inj 1,000 MG In NS Inj 100 / 100 100 ML @ 200 mls/hr IV.SIG ONCE ONE Rx#:[id number] Output: Urine Amount (Catheter) 750 / 750 Indwelling Urethral Catheter 750 / 750 Other: # Bowel Movements 0 Narrative: Patient with ET tube in place on the ventilator. - Constitutional obese (Morbid.) - Routine Neck Exam Present: trachea midline - Routine Respiratory Exam Present: patient mechanically ventilated, CTA bilaterally, distant breath sounds (Bilaterally.) - Routine Cardiovascular Exam Present: RRR (Markedly obese abdominal wall.) - Routine Extremities Exam Present: edema (1+ pitting edema ankles and feet.) - Routine Skin Exam Present: warm Results - Lab Results 05/30/18 22:21 05/31/18 13:30 Most recent lab results ABG pH 7.25 (7.380-7.420) L* 05/31/18 15:33 ABG pCO2 46 mmHg (38-42) H 05/31/18 15:33 ABG pO2 72 mmHG (61-120) 05/31/18 15:33 ABG HCO3 19 mmol/L (22-26) L 05/31/18 15:33 Calcium 7.8 mg/dL (8.5-10.1) L 05/31/18 13:30 Magnesium 2.4 mg/dL (1.5-2.5) 05/30/18 22:21 - Image Kidney/bladder ultrasound: pending Assessment and Plan - Assessment (1) Acute kidney injury Code(s): N17.9 - Acute kidney failure, unspecified Status: Acute Plan: Acute renal insufficiency secondary to sepsis and relative hypotension intravascular volume depletion. No previous laboratory studies available sponge kidney disease also given history of hypertension diabetes mellitus. Her creatinine level is improving however with IV hydration. Continue to monitor. I agree with discontinuance of CHRISTIAN inhibitor for the present as well as metformin. Medications should be adjusted for the patient's estimated GFR if clinically indicated. Avoid agents with significant potential for nephrotoxicity possible including NSAIDs for analgesia, iodine contrast agents. Gadolinium is contraindicated if the GFR is below 30. (2) Hyperkalemia, diminished renal excretion Code(s): E87.5 - Hyperkalemia Status: Acute Plan: Potassium level is improving. Should continue to improve with hydration and improvement in renal clearance. Continue to monitor however. (3) Sepsis secondary to UTI Code(s): A41.9 - Sepsis, unspecified organism; N39.0 - Urinary tract infection, site not specified Status: Acute
[2018-05-31] MEDS: Famotidine PF Inj 20 MG/2 ML Vial IV.PUSH SCH (20:49)
--- NOTE | 2018-05-31 20:50 | US ---
EXAM DATE: 05/31/2018 8:10 PM EDT AGE/SEX: 67 years / Female INDICATIONS: Renal failure. CLINICAL DATA: This is the patient's initial encounter. Patient reports that signs and symptoms have been present for 2 days and indicates a pain score of Nonresponsive. MEDICAL/SURGICAL HISTORY: Hypertension. Depression. Diabetes. Hypertriglyceridemia. None. COMPARISON: [facility] [place], CT ABDOMEN & PELVIS W/O CONTRAST, 05/31/2018. . MEASUREMENTS: Right Kidney:__13.7 x 6.7 x 6.2 cm Left Kidney:__10.5 x 5.4 x 5.9 cm FINDINGS: Right Kidney: 2.6 cm benign cyst of the mid zone. Parenchymal echogenicity within normal limits. No h ydronephrosis. Left Kidney: Difficult visualization. Grossly normal parenchymal echogenicity. No hydronephrosis or f ocal lesion demonstrated. Bladder: Chappell catheter is present. Bladder decompressed. Other: Gallstones and body wall edema demonstrated. CONCLUSION: 1. No obstructive uropathy or other acute abnormality demonstrated. 2. Benign cyst of the right kidney. Electronically signed by: Tone Vega MD 05/31/2018 8:49 PM EDT
[2018-05-31] MEDS: Chlorhexidine 0.12% Oral Kit 15 ML UDC OROPHARYNG SCH (20:52)
[2018-05-31] MEDS ORDERED: Famotidine PF Inj 20 MG/2 ML Vial IV.PUSH SCH (21:00)
[2018-06-01] MEDS: Oral Hygiene Kit OROPHARYNG SCH ×5 (01:19→23:42)
[2018-06-01] MEDS: Insulin NovoLIN Regular Correctional Sugar Inj SQ SCH ×5 (01:19→23:42)
[2018-06-01] MEDS: Heparin - SQ 10,000 UNITS/ML Vial SQ SCH ×3 (04:00→18:27)
[2018-06-01] MEDS: Propofol 1000 mg/100 ml Inj 1,000 MG/100 ML BOTTLE IV.CONT PRN ×8 (05:29→22:22)
[2018-06-01] MEDS: Sod Chloride 0.9% Inj 1,000 ML IV.CONT SCH (05:53)
[2018-06-01 06:06] LABS: Hematocrit 42.6 % (35.0-46.0); Hemoglobin 13.1 gm/dL (11.6-15.3); Lymph # (Auto) 0.2 th/mm3 (1.0-4.8); Lymph % (Auto) 3.4 % (9.0-44.0); Mean Corpuscular Hemoglobin 27.7 pg (27.0-34.0); Mean Corpuscular Volume 89.7 fL (80.0-100.0); Mean Platelet Volume 7.6 fL (7.0-11.0); Mono # (Auto) 0.1 th/mm3 (0.0-0.9); Mono % (Auto) 1.2 % (0.0-8.0); Neut # (Auto) 4.8 th/mm3 (1.8-7.7); Neut % (Auto) 95.4 % (16.0-70.0); Platelet Count 141 th/mm3 (150-450); Red Blood Count 4.75 mil/mm3 (4.00-5.30); White Blood Count 5.1 th/mm3 (4.0-11.0)
[2018-06-01 06:08] LABS: Mean Corpuscular HGB Conc 30.8 % (32.0-36.0)
[2018-06-01 06:19] LABS: Albumin 2.4 g/dL (3.4-5.0); Calcium 7.4 mg/dL (8.5-10.1); Carbon Dioxide 20.9 meq/L (21.0-32.0); Potassium 4.5 meq/L (3.5-5.1); Total Protein 5.1 g/dL (6.4-8.2); Vancomycin,Random 6.7 Comment
[2018-06-01 06:58] LABS: ABG Base Excess -6.4 mmol/L (-2-2); ABG PCO2 31 mmHg (38-42); ABG PO2 77 mmHG (61-120)
--- NOTE | 2018-06-01 08:12 | P.PNCC ---
Subjective Subjective Remarks/Hospital Course: Mrs. Scott is a 67-year-old female with past medical history significant for morbid obesity, type 2 diabetes, hypertension, probable COPD who was brought in by the family yesterday night because of increasing weakness and lethargic, this was ongoing for last 2 weeks got worse over the last 2 days. Unable to get detailed history from patient due to lethargy. ER workup showed patient had a urinary tract infection and sepsis, also chest x-ray showed bilateral interstitial infiltrates, and LLL consolidation. There is also evidence of acute kidney injury with creatinine up to 2.59, BUN 89. Intermittently having tachyarrhythmia/atrial flutter with rate in in 130s. Patient was admitted to the hospital service. At the time of hospitalist (Dr. Mckeon) evaluation patient was very lethargic and ABG showed a pH of 7.08 and a PCO2 of 91, PO2 was 70 on 5 L nasal cannula. Patient was immediately placed on BiPAP. Approximately after 45 minutes ABG was repeat showed only marginal improvement pH of 7.12 and PCO2 of 84. Patient was emergently transferred to the ICU and critical care was consulted I evaluated the patient in the ICU. She is currently on BiPAP 15/. Patient is lethargic, even though arousable she falls right back to sleep. Airway protection was questionable. With severe hypercarbic respiratory failure complicated with sepsis, metabolic encephalopathy and acute kidney failure, decision was made to intubate the patient. I endotracheally intubate the patient in placed on the mechanical ventilation. Prior to and post intubation patient heart rate remained in 130s. Hypotensive postintubation, stat 2 L fluid boluses given. Also started on Levophed to keep map above 65. Patient had been placed on Rocephin and will discontinue this and start renally dosed cefepime, add azithromycin for atypical coverage. ID consulted for questionable scabies and sepsis with shock SUBJ 06/02: Remains critically ill but stabilizing more. ABG shows correction of severe hypercapnia. FiO2 remains at 50%. Urine output adequate BUN remains elevated creatinine slightly improved. Received treatment with permethrin Objective Vital Signs / I&O: Vital Signs 05/31/18 09:00 05/31/18 09:15 05/31/18 10:15 Temperature Pulse Rate 74 72 128 H Respiratory Rate 15 14 14 Blood Pressure 86/52 L 113/56 L 88/54 L Pulse Oximetry 05/31/18 10:57 05/31/18 11:00 05/31/18 11:42 Temperature Pulse Rate 129 H 128 H Respiratory Rate 18 20 Blood Pressure 115/68 109/59 L Pulse Oximetry 93 L 92 L 05/31/18 12:34 05/31/18 13:00 05/31/18 13:24 Temperature Pulse Rate 128 H Respiratory Rate 24 19 Blood Pressure 100/62 Pulse Oximetry 94 L 93 L 05/31/18 14:02 05/31/18 16:00 05/31/18 20:00 Temperature 98.3 F 98.7 F Pulse Rate 122 H 61 Respiratory Rate 16 17 16 Blood Pressure 126/67 116/77 Pulse Oximetry 96 100 98 05/31/18 20:36 06/01/18 00:00 06/01/18 00:08 Temperature 98.8 F Pulse Rate 73 74 Respiratory Rate 16 16 16 Blood Pressure 138/82 Pulse Oximetry 97 98 95 06/01/18 04:00 06/01/18 04:58 06/01/18 07:51 Temperature 98.4 F Pulse Rate 63 60 60 Respiratory Rate 16 16 14 Blood Pressure 109/57 L Pulse Oximetry 94 L 94 L 95 Intake & Output 05/31/18 06/01/18 06/01/18 18:59 06:59 18:59 Intake Total 1100 / 1100 1200 / 1200 Output Total 750 / 750 1500 / 1500 Balance 350 / 350 -300 / -300 Weight 165.3 kg Intake: IV 1100 / 1100 1200 / 1200 Diprivan 1000 mg/100 ml Inj 1, 100 / 100 200 / 200 000 mg In 100 ml @ 5 MCG/KG/MIN 4.763 mls/hr IV.CONT TITRATE PRN Rx#:[id number] NS Inj 1,000 ML @ 75 mls/hr IV. 1000 / 1000 1000 / 1000 CONT .[id number] [facility] Rx#:[id number] Oral 0 / 0 Output: Urine Amount (Catheter) 750 / 750 1500 / 1500 Indwelling Urethral Catheter 750 / 750 1500 / 1500 Other: Date of Last Bowel Movement 06/01/18 # Bowel Movements 0 # Incontinent Bowel Movements 3 Result Diagrams: 06/01/18 05:11 06/01/18 05:11 Objective Remarks: GENERAL: Patient is a morbidly obese, sedated with propofol SKIN: Cool and dry. Tinea cruris, axillary region and under the breasts. Purple rash and excoriation bilateral lower extremity HEAD: Atraumatic. Normocephalic. No temporal wasting, or tenderness. EYES: Pupils equal, round and reactive to light. Extraocular movements are present EARS, NOSE AND THROAT: Edentulous. Mucous membranes dry. Orotracheally intubated NECK: Short and obese neck, supple, no meningeal signs CARDIOVASCULAR: Sinus rhythm with sinus arrhythmia atrial flutter resolved. No murmurs, rubs or gallops heard RESPIRATORY: On PRVC. Air entry equal but diminished bilaterally, mild expiratory wheezing ABDOMEN: Obese abdomen, soft, with multiple striae and excoriations EXTREMITIES: No clubbing, pedal edema. Has mild mottling both feet. Purple rash and excoriation bilateral lower extremity NEUROLOGICAL: Intubated sedated with propofol. Spontaneously moves extremities. Able to follow commands with upper extremities on sedation lightening Assessment and Plan - Assessment and Plan Plan: ASSESSMENT Acute hypercarbic, hypoxemic respiratory failure Severe encephalopathy secondary to sepsis and hypercarbia Severe sepsis Hypotension-resolved Acute COPD exacerbation UTI Probable pneumonia Acute kidney failure Atrial flutter with rapid ventricular response-resolved Type 2 diabetes Hypertension Morbid obesity PLAN NEURO: -Encephalopathy most likely secondary to hypercapnia and severe sepsis. Improving neuro status -Monitor neuro status closely-propofol for sedation and vent synchrony -Daily sedation vacation starting in 24 hours RESP: -Emergently intubated and placed on mechanical ventilation/PRVC/AC -ABG shows correction of hypercapnia -DuoNeb every 6 hours scheduled and as needed -IV Solu-Medrol 60 mg every 12 -Check sputum culture, empiric antibiotics with cefepime, 1 dose of vancomycin and azithromycin -Start weaning trials in the next 24 hours CV: -Normal saline IV fluids s/p 2 L bolus, continue maintenance fluid normal saline at 75 mL/h -Levophed started to keep map above 65 now weaned off -Await 2d echo -s/p 1 dose of digoxin 250 mcg IV for rate control. Now NSR -Hold home medications lisinopril and hydrochlorothiazide GI: -N.p.o., IV famotidine -Start tube feeds with Glucerna : -Monitor renal function closely. Chappell catheter. -Acute renal failure workup per nephrology, check renal ultrasound -Nephrology consult appreciated, continue IV hydration as above ID: -ID following, continue cefepime and continue azithromycin. s/p 1 dose of vancomycin -Follow-up on urine culture, check sputum culture -s/p Permethrin cream 5% for possible scabies HEME: -Monitor CBC, CMP, coags ENDO: -Electrolyte replacement per protocol -SSI. Add Levemir 10 U qhs PROPH: -Bilateral lower extremity SCDs. Heparin subcu 5000 units every 8 hours. IV famotidine 20 mg every 12 LINES: -Left IJ central line placed 05/31/18 CC time 35min, excluding procedures Patient is critically ill, but stabilizing. She has multiorgan dysfunction syndrome including acute respiratory, failure acute encephalopathy, acute renal failure severe sepsis and hypotension. Ventilator weaning will be difficult with severe super morbid obesity and ongoing smoking/COPD. Code Status: Full
[2018-06-01] MEDS: Chlorhexidine 0.12% Oral Kit 15 ML UDC OROPHARYNG SCH ×2 (08:28→20:16)
[2018-06-01] MEDS: Senna/Docusate Sodium 8.6/50 MG Tablet PO SCH ×2 (08:29→20:52)
[2018-06-01] MEDS: Famotidine PF Inj 20 MG/2 ML Vial IV.PUSH SCH ×2 (08:29→20:51)
[2018-06-01] MEDS: MethylPREDNISolone Sod Succinate Inj 125 MG/2 ML Vial IV.PUSH SCH ×2 (08:29→20:51)
[2018-06-01] MEDS ORDERED: Lisinopril 20 MG Tablet PO SCH (09:00)
--- NOTE | 2018-06-01 09:01 | P.PNID ---
Subjective Remarks: Patient is a 67-year-old female, lives at home with her son, brought into the hospital for evaluation of 2-3 week history of generalized weakness. According to the notes normally she can ambulate in her home using a walker. She was still able to do some ambulation, however for the past 2 days, patient apparently has not been able to get up. It was also noted that she was having some swelling in her abdomen and there was some mention of possible redness. There was no mention of any fever or chills. She has not been congested or coughing. She has not been complaining of any chest pain or any shortness of breath. There is been no nausea or vomiting, or complaints of any diarrhea or urinary complaints. She has known hypertension and diabetes, and there was mention that she has not been able to take her medications since she did not have any money to get her refills. She was initially admitted to the regular floor, and but she developed progressive lethargy, and she was transferred to the ICU. She has not been febrile. Her mental status continued to deteriorate, and she ended up getting intubated. Her chest x-ray showing opacity on the left base. She also has evidence of elevated creatinine, as well as hyperkalemia. Her urinalysis did show significant pyuria. She is getting fluid resuscitation. Currently her blood pressure is holding. Infectious disease consultation has been requested to evaluate the patient with severe sepsis, UTI, and possible scabies. Notes reviewed Afebrile BP ok On the vent, FiO2 at 45% On diprivan drip C/S pending Creatinine better Antibiotics: Cefepime Zithromax Vancomycin Lines: [facility] Past Medical History: Depression Diabetes Hypertension Hypertriglyceridemia Allergies/Adverse Reactions: Allergies No Known Allergies Allergy (Verified 05/30/18 22:08) Objective Vital Signs 05/31/18 09:00 05/31/18 09:15 05/31/18 10:15 Temperature Pulse Rate 74 72 128 H Respiratory Rate 15 14 14 Blood Pressure 86/52 L 113/56 L 88/54 L Pulse Oximetry 05/31/18 10:57 05/31/18 11:00 05/31/18 11:42 Temperature Pulse Rate 129 H 128 H Respiratory Rate 18 20 Blood Pressure 115/68 109/59 L Pulse Oximetry 93 L 92 L 05/31/18 12:34 05/31/18 13:00 05/31/18 13:24 Temperature Pulse Rate 128 H Respiratory Rate 24 19 Blood Pressure 100/62 Pulse Oximetry 94 L 93 L 05/31/18 14:02 05/31/18 16:00 05/31/18 20:00 Temperature 98.3 F 98.7 F Pulse Rate 122 H 61 Respiratory Rate 16 17 16 Blood Pressure 126/67 116/77 Pulse Oximetry 96 100 98 05/31/18 20:36 06/01/18 00:00 06/01/18 00:08 Temperature 98.8 F Pulse Rate 73 74 Respiratory Rate 16 16 16 Blood Pressure 138/82 Pulse Oximetry 97 98 95 06/01/18 04:00 06/01/18 04:58 06/01/18 07:51 Temperature 98.4 F Pulse Rate 63 60 60 Respiratory Rate 16 16 14 Blood Pressure 109/57 L Pulse Oximetry 94 L 94 L 95 Intake & Output 05/31/18 06/01/18 06/01/18 18:59 06:59 18:59 Intake Total 1100 / 1100 1200 / 1200 1100 / 1100 Output Total 750 / 750 1500 / 1500 Balance 350 / 350 -300 / -300 1100 / 1100 Weight 165.3 kg Intake: IV 1100 / 1100 1200 / 1200 1100 / 1100 Diprivan 1000 mg/100 ml Inj 1, 100 / 100 200 / 200 100 / 100 000 mg In 100 ml @ 5 MCG/KG/MIN 4.763 mls/hr IV.CONT TITRATE PRN Rx#:[id number] NS Inj 1,000 ML @ 75 mls/hr IV. 1000 / 1000 1000 / 1000 1000 / 1000 CONT .[id number] [facility] Rx#:[id number] Oral 0 / 0 Output: Urine Amount (Catheter) 750 / 750 1500 / 1500 Indwelling Urethral Catheter 750 / 750 1500 / 1500 Other: Date of Last Bowel Movement 06/01/18 # Bowel Movements 0 # Incontinent Bowel Movements 3 05/30/18 22:56 Clean Catch Urine Urine Culture - Final 50-100,000 cfu/mL mixed leesa (probable contaminants ) 05/31/18 14:50 Wound - Abdominal Gram Stain - Final 05/31/18 14:50 Wound - Abdominal Wound Culture - Pending 05/30/18 22:21 Blood - Peripheral Aerobic Blood Culture - Preliminary No growth in 1 day 07/09/18 22:21 Blood - Peripheral Anaerobic Blood Culture - Preliminary No growth in 1 day 05/30/18 22:21 Blood - Peripheral Aerobic Blood Culture - Preliminary No growth in 1 day 05/30/18 22:21 Blood - Peripheral Anaerobic Blood Culture - Preliminary No growth in 1 day Lab - Hematology Results 05/30/18 06/01/18 22:21 05:11 WBC 8.8 5.1 RBC 4.84 4.75 Hgb 13.7 13.1 Hct 43.8 42.6 MCV 90.4 89.7 MCH 28.2 27.7 MCHC 31.2 L 30.8 L RDW 16.8 17.0 Plt Count 190 141 L MPV 7.6 7.6 Neut % (Auto) 87.8 H 95.4 H Lymph % (Auto) 4.5 L 3.4 L Tillman % (Auto) 7.2 1.2 Eos % (Auto) 0.2 0.0 Baso % (Auto) 0.3 0.0 Neut # (Auto) 7.8 H 4.8 Lymph # (Auto) 0.4 L 0.2 L Tillman # (Auto) 0.6 0.1 Eos # (Auto) 0.0 0.0 Baso # (Auto) 0.0 0.0 WBC Differential . . Differential Comment Auto diff final Auto diff final Lab - Chemistry Results 05/30/18 05/30/18 05/30/18 22:21 22:21 22:21 Sodium 143 Potassium 5.8 H Chloride 109 H Carbon Dioxide 25.2 Anion Gap 9 BUN 89 H Creatinine 2.59 H Estimated GFR 18 L POC Glucose Random Glucose 134 H Lactic Acid 1.7 Calcium 8.0 L Prot Corrected Calcium Magnesium 2.4 Total Bilirubin 0.3 AST 15 ALT 20 Alkaline Phosphatase 61 Total Creatine Kinase 113 CK-MB (CK-2) 2.8 Troponin I 0.05 B-Natriuretic Peptide Total Protein 6.1 L Albumin 3.0 L 05/30/18 05/31/18 05/31/18 22:21 00:50 08:18 Sodium Potassium Chloride Carbon Dioxide Anion Gap BUN Creatinine Estimated GFR POC Glucose 123 H Random Glucose Lactic Acid Calcium Prot Corrected Calcium Magnesium Total Bilirubin AST ALT Alkaline Phosphatase Total Creatine Kinase 107 CK-MB (CK-2) 2.9 Troponin I 0.05 B-Natriuretic Peptide 437 H Total Protein Albumin 05/31/18 05/31/18 05/31/18 13:30 17:05 17:06 Sodium 143 Potassium 5.6 H Chloride 110 H Carbon Dioxide 24.2 Anion Gap 9 BUN 89 H Creatinine 1.95 H Estimated GFR 26 L POC Glucose 110 Random Glucose 134 H Lactic Acid 0.9 Calcium 7.8 L Prot Corrected Calcium Magnesium Total Bilirubin 0.2 AST 11 L ALT 17 Alkaline Phosphatase 51 Total Creatine Kinase CK-MB (CK-2) Troponin I B-Natriuretic Peptide Total Protein 5.2 L D Albumin 2.3 L D 05/31/18 05/31/18 06/01/18 18:13 20:35 01:09 Sodium Potassium 5.0 Chloride Carbon Dioxide Anion Gap BUN Creatinine Estimated GFR POC Glucose 119 H 125 H Random Glucose Lactic Acid Calcium Prot Corrected Calcium Magnesium Total Bilirubin AST ALT Alkaline Phosphatase Total Creatine Kinase CK-MB (CK-2) Troponin I B-Natriuretic Peptide Total Protein Albumin 06/01/18 06/01/18 05:08 05:11 Sodium 147 H Potassium 4.5 Chloride 114 H Carbon Dioxide 20.9 L Anion Gap 12 BUN 79 H Creatinine 1.60 H Estimated GFR 32 L POC Glucose 155 H Random Glucose 145 H Lactic Acid Calcium 7.4 L* Prot Corrected Calcium 8.5 Magnesium Total Bilirubin 0.4 AST 10 L ALT 15 Alkaline Phosphatase 54 Total Creatine Kinase CK-MB (CK-2) Troponin I B-Natriuretic Peptide Total Protein 5.1 L Albumin 2.4 L Imaging: Abdomen/Bladder Ultrasound 05/31/18 00:00 CONCLUSION: 1. No obstructive uropathy or other acute abnormality demonstrated. 2. Benign cyst of the right kidney. Abdomen/Pelvis CT 05/31/18 00:00 CONCLUSION: 1. Cholelithiasis. 2. Colonic diverticulosis without definitive evidence for diverticulitis. 3. Prominent uterus with hypodense 6 cm mass anteriorly likely reflecting a pedunculated fibroid. 4. Appendix is not visualized and potentially obscured by the uterine fibroid. 5. Large fat-containing left-sided anterior abdominal wall hernia. 6. Diffuse soft tissue edema in the inferior abdominal pannus. Head CT 05/31/18 00:00 CONCLUSION: 1. No acute intracranial abnormality. 2. Minimal paranasal sinus mucosal disease. Chest X-Ray 05/31/18 13:55 CONCLUSION: 1. Cardiomegaly with resolving interstitial edema and improving aeration in the left lung base. 2. Endotracheal tube appropriately positioned above the brittnee. Nasogastric tube is curled in the gastric fundus and the left IJ central venous catheter is identified. At the junction of the left and right brachiocephalic vein. Physical Exam: GENERAL: Patient is a morbidly obese, well-developed female, on sedation, NAD, on the vent. SKIN: Cool and dry. Has some purplish skin in neck folds and axilla. Has abdominal striae. Has dark reddish papules in both legs some are linear ramon. Has dry skin in all her toes and between her toes. Has excoriations in her mons pubis/suprapubic region. HEAD: Atraumatic. Normocephalic. No temporal wasting, or tenderness. EYES: Albert conjunctiva. Has bilateral conjunctival injection. Pupils equal, round and reactive to light. EARS, NOSE AND THROAT: Nose without bleeding or purulent nasal discharge. Mucous membranes moist. Orally intubated. NECK: Short and obese neck, supple, no meningeal signs CARDIOVASCULAR: Regular rate and rhythm. No murmurs, rubs or gallops heard RESPIRATORY: Decreased breath sounds both bases. Has bilateral wheezing ABDOMEN: Obese abdomen, soft, with striae, has large abdominal pannus, has obese mons pubis with excoriations, bowel sounds present and normoactive. No guarding. EXTREMITIES: No clubbing, pedal edema. Has mild mottling both feet. Rash as described in skin exam. Cool feet. NEUROLOGICAL: Opens eyes some, no Babinski, no clonus PSYCHIATRIC: Unable to assess LINE LIJ: No evidence of infection, has several PIV Assessment and Plan - Plan Impression Sepsis on presentation due to UTI, possible PNA L UTI, no gutiérrez Acute renal failure, likely multifactorial, dehydration, sepsis Respiratory failure, could have underlying ANIVAL due to morbid obesity, possibly PNA L - developed high pCo2 due to hypoventilation Rash looks like scabies Recommendation Follow C/S: blood, urine and sputum IV Cefepime for GNR coverage Give another dose of Vanco (GPC coverage including MRSA) and check level in AM Zithromax S/P Rx scabies with permethrim Fluid resuscitation Monitor progress I will be off June 02 Other ID MD covering in my absence
--- NOTE | 2018-06-01 15:45 | P.DIET ---
Nutritional Evaluation Type of nutrition evaluation: initial Nutrition consult regarding: Tube Feeding Subjective Subjective Comments: Assessment here uses SCCM and ASPEN Guidelines for critically ill patients w/ BMIs 30 and greater Objective - Diagnosis Acute Kidney Injury, UTI - Objective % IBW: 251 (IBW 65.9) Body Weight Used for Calculations: IBW Energy Needs - Lower Range (kCal/kg): 22 Energy Needs - Upper Range (kCal/kg): 25 Lower Limit kCal/kg (kCals): 1,450 Upper Limit kCal/kg (kCals): 1,648 Lower Limit Protein Factor (Grams per Kg): 2.0 Upper Limit Protein Factor (Grams per Kg): 2.5 Lower Protein Needs (Protein): 132 Upper Protein Needs (Protein): 165 Dietitian Reviewed in Medical Record: Curent medications, Intake & Output, Medical history, Tube feeding Diet Order: NPO Objective Comments: PMH: Morbid Obesity, DM-2, HTN, Probable COPD, Depression Labs Include: BUN 79, Creatinine 1.60, estGFR 32, Accucheck 125, 155, 146 Meds Include: Propofol, HCTZ, Novolin R, Lisinopril, Pravachol +3BM, -UOP 2250ml Feeding - Current Tube Feeding Tube Feeding Product: Glucerna 1.5 Diprivan Rate: 42.9 Lipid kCals From Diprivan: 1,132 Assessment Assessment: Pt is at high nutrition risk r/t need for TF'ing. To best meet pt's assessed needs w/TF'ing, Rec Vital High Protein @ goal rate 65ml/hr to offer 1560 kcal, 137g Protein and 1304ml free water. Propofol providing additional kcals(1.1 kcal /ml)when running. Monitor renal labs closely. Additional Recs to Follow r/t Clinical Course. Recommendations: 1.To best meet pt's assessed needs w/TF'ing, Rec Vital High Protein @ goal rate 65ml/hr 2.Propofol providing additional kcals(1.1 kcal/ml)when running 3.Additional Recs to Follow r/t Clinical Course Dietitian to Monitor: Lab values, Electrolytes, Renal labs, Glucose level, Intake & Output, Tube feeding tolerance, Weight change, Medical course
[2018-06-01] MEDS: Azithromycin Inj 500 MG in Sodium Chlor 0.9% Inj 250 ML IV.SIG SCH (16:23)
[2018-06-01] MEDS ORDERED: Cefepime Inj 2,000 MG in Sodium Chlor 0.9% Inj 100 ML IV.SIG SCH (17:00)
--- NOTE | 2018-06-01 19:12 | P.PNNP ---
Subjective Interval history: Still intubated and nonverbal. Physical Exam Vital signs: Vital Signs 05/31/18 20:00 05/31/18 20:36 06/01/18 00:00 Temperature 98.7 F 98.8 F Pulse Rate 61 73 74 Respiratory Rate 16 16 16 Blood Pressure 116/77 138/82 Pulse Oximetry 98 97 98 06/01/18 00:08 06/01/18 04:00 06/01/18 04:58 Temperature 98.4 F Pulse Rate 63 60 Respiratory Rate 16 16 16 Blood Pressure 109/57 L Pulse Oximetry 95 94 L 94 L 06/01/18 07:51 06/01/18 08:00 06/01/18 09:00 Temperature 98.0 F Pulse Rate 60 63 65 Respiratory Rate 14 14 Blood Pressure 119/76 Pulse Oximetry 95 96 06/01/18 11:46 06/01/18 12:00 06/01/18 15:37 Temperature 98.0 F Pulse Rate 59 L 60 Respiratory Rate 14 14 14 Blood Pressure 144/71 H Pulse Oximetry 95 95 06/01/18 15:38 06/01/18 16:00 Temperature 98.3 F Pulse Rate 69 Respiratory Rate 14 14 Blood Pressure 118/79 Pulse Oximetry 93 L 94 L Intake & Output 06/01/18 06/01/18 06/02/18 06:59 18:59 06:59 Intake Total 1200 / 1200 1590 / 1590 Output Total 1500 / 1500 1200 / 1200 Balance -300 / -300 390 / 390 Weight 165.3 kg Intake: IV 1200 / 1200 1500 / 1500 Diprivan 1000 mg/100 ml Inj 1, 200 / 200 500 / 500 000 mg In 100 ml @ 5 MCG/KG/MIN 4.763 mls/hr IV.CONT TITRATE PRN Rx#:[id number] NS Inj 1,000 ML @ 75 mls/hr IV. 1000 / 1000 1000 / 1000 CONT .[id number] Rx#:[id number] Oral 0 / 0 Tube Feeding 90 / 90 Output: Urine 900 / 900 Stool 300 / 300 Urine Amount (Catheter) 1500 / 1500 Indwelling Urethral Catheter 1500 / 1500 Other: Date of Last Bowel Movement 06/01/18 06/01/18 # Incontinent Bowel Movements 3 - Constitutional morbidly obese - Routine HEENT Exam Head: Present: normocephalic - Routine Respiratory Exam Present: CTA bilaterally, distant breath sounds - Routine Cardiovascular Exam Present: RRR - Routine Abdominal Exam Present: soft - Routine Extremities Exam Present: edema (1+ pitting edema lower legs. No erythema.) - Routine Skin Exam Present: intact - Detailed Neurological Exam: Coma Scale Eye Opening: None - Urinary Catheter Management Indwelling Urethral Catheter Cath placed during this visit: yes Reason for continuing: Hourly intake/output Insertion date: 05/31/18 Insertion time: 14:00 Assessment and Plan - Assessment (1) Acute kidney injury Code(s): N17.9 - Acute kidney failure, unspecified Status: Acute Plan: Acute renal insufficiency secondary to sepsis and relative hypotension intravascular volume depletion. No previous laboratory studies available sponge kidney disease also given history of hypertension diabetes mellitus. Her creatinine level is continuing to improve however with IV hydration. Continue to monitor. I agree with discontinuance of CHRISTIAN inhibitor for the present as well as metformin. Medications should be adjusted for the patient's estimated GFR if clinically indicated. Avoid agents with significant potential for nephrotoxicity possible including NSAIDs for analgesia, iodine contrast agents. Gadolinium is contraindicated if the GFR is below 30. (2) Hyperkalemia, diminished renal excretion Code(s): E87.5 - Hyperkalemia Status: Resolved (3) Sepsis secondary to UTI Code(s): A41.9 - Sepsis, unspecified organism; N39.0 - Urinary tract infection, site not specified Status: Acute (4) Hypernatremia Code(s): E87.0 - Hyperosmolality and hypernatremia Status: Acute Plan: Discontinue normal saline. Start half normal saline. If tube feeding tolerated convert patient to free water administration via feeding tube. - Plan Management per primary care physician. - Attending Attestation The patient will be seen intermittently at this point in time.
[2018-06-01] MEDS: Sodium Chloride 0.45 % Inj 1,000 ML IV.CONT SCH (20:20)
[2018-06-01] MEDS: Insulin Detemir Inj 1,000 UNIT/10 ML Vial SQ SCH (20:52)
[2018-06-02] MEDS: Propofol 1000 mg/100 ml Inj 1,000 MG/100 ML BOTTLE IV.CONT PRN ×3 (01:12→10:34)
[2018-06-02] MEDS: Heparin - SQ 10,000 UNITS/ML Vial SQ SCH ×3 (02:30→18:30)
[2018-06-02] MEDS: Oral Hygiene Kit OROPHARYNG SCH ×3 (03:21→16:59)
[2018-06-02] MEDS: Insulin NovoLIN Regular Correctional Sugar Inj SQ SCH ×3 (05:05→18:29)
[2018-06-02 05:08] LABS: Hematocrit 43.8 % (35.0-46.0); Hemoglobin 13.4 gm/dL (11.6-15.3); Mean Corpuscular Hemoglobin 27.4 pg (27.0-34.0); Mean Corpuscular Volume 89.6 fL (80.0-100.0); Mean Platelet Volume 7.5 fL (7.0-11.0); Platelet Count 157 th/mm3 (150-450); Red Blood Count 4.89 mil/mm3 (4.00-5.30); Red Cell Distribution Width 16.8 % (11.6-17.2); White Blood Count 6.6 th/mm3 (4.0-11.0)
--- NOTE | 2018-06-02 05:12 | XR ---
EXAM DATE: 06/02/2018 4:53 AM EDT AGE/SEX: 67 years / Female INDICATIONS: Short of breath. CLINICAL DATA: This is the patient's subsequent encounter. Patient reports that signs and symptoms h ave been present for 4 - 6 days and indicates a pain score of 0/10. MEDICAL/SURGICAL HISTORY: Non-responsive. Non-responsive. COMPARISON: [facility], CHEST 1V SINGLE AP, 05/31/2018. . FINDINGS: Rotated exam. Stable ETT and NGT. Stable left IJ central line. Cardiac silhouette remains enlarged wi th diffuse interstitial prominence. Hazy diffuse opacity throughout the right lung is likely projecti onal. Persistent bilateral lower lung zone airspace disease. Remainder of the exam is unchanged. CONCLUSION: 1. Stable tubes and lines. 2. Cardiomegaly with positive fluid balance. 3. Stable left and worsening right lower lung zone airspace disease. Electronically signed by: Rip Roy MD 06/02/2018 5:11 AM EDT
[2018-06-02 05:30] LABS: Alanine Aminotransferase 16 U/L (10-53); Albumin 2.3 g/dL (3.4-5.0); Alkaline Phosphatase 55 U/L (45-117); Anion Gap 11 meq/L (5-15); Aspartate Aminotransferase 9 U/L (15-37); Blood Urea Nitrogen 65 mg/dL (7-18); Calcium 7.8 mg/dL (8.5-10.1); Chloride 113 meq/L (98-107); Glomerular Filtration Rate 37 mL/min (>89); Glucose,Random 216 mg/dL (74-106); Magnesium 2.4 mg/dL (1.5-2.5); Potassium 4.6 meq/L (3.5-5.1); Sodium 146 meq/L (136-145); Total Protein 5.4 g/dL (6.4-8.2)
[2018-06-02 05:34] LABS: Mean Corpuscular HGB Conc 30.6 % (32.0-36.0)
[2018-06-02] MEDS: Famotidine PF Inj 20 MG/2 ML Vial IV.PUSH SCH (08:00)
[2018-06-02] MEDS: MethylPREDNISolone Sod Succinate Inj 125 MG/2 ML Vial IV.PUSH SCH ×2 (08:00→21:11)
[2018-06-02] MEDS: Senna/Docusate Sodium 8.6/50 MG Tablet PO SCH ×2 (08:01→21:11)
[2018-06-02] MEDS: Chlorhexidine 0.12% Oral Kit 15 ML UDC OROPHARYNG SCH ×2 (08:02→21:10)
--- NOTE | 2018-06-02 11:16 | P.PNID ---
Subjective Remarks: Patient is a 67-year-old female, lives at home with her son, brought into the hospital for evaluation of 2-3 week history of generalized weakness. According to the notes normally she can ambulate in her home using a walker. She was still able to do some ambulation, however for the past 2 days, patient apparently has not been able to get up. It was also noted that she was having some swelling in her abdomen and there was some mention of possible redness. There was no mention of any fever or chills. She has not been congested or coughing. She has not been complaining of any chest pain or any shortness of breath. There is been no nausea or vomiting, or complaints of any diarrhea or urinary complaints. She has known hypertension and diabetes, and there was mention that she has not been able to take her medications since she did not have any money to get her refills. She was initially admitted to the regular floor, and but she developed progressive lethargy, and she was transferred to the ICU. She has not been febrile. Her mental status continued to deteriorate, and she ended up getting intubated. Her chest x-ray showing opacity on the left base. She also has evidence of elevated creatinine, as well as hyperkalemia. Her urinalysis did show significant pyuria. She is getting fluid resuscitation. Currently her blood pressure is holding. Infectious disease consultation has been requested to evaluate the patient with severe sepsis, UTI, and possible scabies. Notes reviewed Afebrile BP ok On the vent, FiO2 at 45% On diprivan drip, moves extremities. UO ok, Nephro following, Cr high. No generalized rash but has road rash like abrasions on back, LLE. RLE with 3rd toe blackening noted with erythema and tenderness. Diarrhea has dignishield. Stool Cdiff negative. dw grand daughter patient recently moved from [place] to [facility] and lives with her son. Patient uses a walker to go to bathroom. Smokes a lot. Stays in bed almost all day. Not able to take care of herself needs help with bathing, self care. Sleep apnea but does not use CPAP. Antibiotics: Cefepime Zithromax Vancomycin Lines: LIJ TLC Past Medical History: Depression Diabetes Hypertension Hypertriglyceridemia Allergies/Adverse Reactions: Allergies No Known Allergies Allergy (Verified 05/30/18 22:08) Objective Vital Signs 06/01/18 11:46 06/01/18 12:00 06/01/18 15:37 Temperature 98.0 F Pulse Rate 59 L 60 Respiratory Rate 14 14 14 Blood Pressure 144/71 H Pulse Oximetry 95 95 06/01/18 15:38 06/01/18 16:00 06/01/18 20:00 Temperature 98.3 F 97 F L Pulse Rate 69 60 Respiratory Rate 14 14 Blood Pressure 118/79 128/58 L Pulse Oximetry 93 L 94 L 94 L 06/01/18 20:57 06/01/18 21:00 06/01/18 21:12 Temperature Pulse Rate 62 Respiratory Rate 15 14 10 L Blood Pressure Pulse Oximetry 95 96 06/01/18 21:17 06/02/18 00:00 06/02/18 02:09 Temperature 98 F Pulse Rate 70 70 Respiratory Rate 10 L 14 14 Blood Pressure 128/96 H Pulse Oximetry 94 L 95 06/02/18 04:00 06/02/18 05:12 06/02/18 08:45 Temperature 97.9 F Pulse Rate 100 H 64 53 L Respiratory Rate 14 14 14 Blood Pressure 128/76 Pulse Oximetry 97 95 96 Intake & Output 06/01/18 06/02/18 06/02/18 18:59 06:59 18:59 Intake Total 1590 / 1590 1063 / 1063 Output Total 1200 / 1200 1300 / 1300 Balance 390 / 390 -237 / -237 Weight 168.6 kg Intake: IV 1500 / 1500 400 / 400 Diprivan 1000 mg/100 ml Inj 1, 500 / 500 400 / 400 000 mg In 100 ml @ 5 MCG/KG/MIN 4.763 mls/hr IV.CONT TITRATE PRN Rx#:[id number] NS Inj 1,000 ML @ 75 mls/hr IV. 1000 / 1000 CONT .[id number] [facility] Rx#:[id number] Tube Feeding 90 / 90 263 / 263 Water Bolus Amount 400 / 400 Output: Urine 900 / 900 Stool 300 / 300 500 / 500 Urine Amount (Catheter) 800 / 800 Indwelling Urethral Catheter 800 / 800 Other: Date of Last Bowel Movement 06/01/18 06/02/18 05/30/18 22:21 Blood - Peripheral Aerobic Blood Culture - Preliminary No growth in 3 days 05/30/18 22:21 Blood - Peripheral Anaerobic Blood Culture - Preliminary No growth in 3 days 05/30/18 22:21 Blood - Peripheral Aerobic Blood Culture - Preliminary No growth in 3 days 05/30/18 22:21 Blood - Peripheral Anaerobic Blood Culture - Preliminary No growth in 3 days 05/31/18 14:50 Wound - Abdominal Gram Stain - Final 05/31/18 14:50 Wound - Abdominal Wound Culture - Final S. aureus MRSA 05/31/18 13:08 Urine - Catheterized Urine Streptococcus pneumoniae Antigen ( M - Final Presumptive negative for streptococcus pneumoniae antigen, suggesting no current or recent infection. Infection due to Streptococcus pneumoniae cannot be ruled out since the antigen present in the sample may be below the detection limit of the test. 05/31/18 13:08 Urine - Catheterized Urine Legionella Antigen - Final Presumptive negative for Legionella pneumophila serogroup 1 antigen in urine, suggesting no recent or recurrent infection. Infection due to Legionella cannot be ruled out since other serogroups and species may cause disease, antigen may not be present in urine in early infection, and the level of antigen present in the urine may be below the detection limit of the test. 05/30/18 22:56 Clean Catch Urine Urine Culture - Final 50-100,000 cfu/mL mixed leesa (probable contaminants ) Lab - Hematology Results 06/01/18 06/02/18 05:11 02:20 WBC 5.1 6.6 RBC 4.75 4.89 Hgb 13.1 13.4 Hct 42.6 43.8 MCV 89.7 89.6 MCH 27.7 27.4 MCHC 30.8 L 30.6 L RDW 17.0 16.8 Plt Count 141 L 157 MPV 7.6 7.5 Neut % (Auto) 95.4 H Lymph % (Auto) 3.4 L [place] % (Auto) 1.2 Eos % (Auto) 0.0 Baso % (Auto) 0.0 Neut # (Auto) 4.8 Lymph # (Auto) 0.2 L [place] # (Auto) 0.1 Eos # (Auto) 0.0 Baso # (Auto) 0.0 WBC Differential . Differential Comment Auto diff final Lab - Chemistry Results 05/31/18 05/31/18 05/31/18 13:30 17:05 17:06 Sodium 143 Potassium 5.6 H Chloride 110 H Carbon Dioxide 24.2 Anion Gap 9 BUN 89 H Creatinine 1.95 H Estimated GFR 26 L POC Glucose 110 Random Glucose 134 H Lactic Acid 0.9 Calcium 7.8 L Prot Corrected Calcium Magnesium Total Bilirubin 0.2 AST 11 L ALT 17 Alkaline Phosphatase 51 Total Protein 5.2 L D Albumin 2.3 L D 05/31/18 05/31/18 06/01/18 18:13 20:35 01:09 Sodium Potassium 5.0 Chloride Carbon Dioxide Anion Gap BUN Creatinine Estimated GFR POC Glucose 119 H 125 H Random Glucose Lactic Acid Calcium Prot Corrected Calcium Magnesium Total Bilirubin AST ALT Alkaline Phosphatase Total Protein Albumin 06/01/18 06/01/18 06/01/18 05:08 05:11 12:31 Sodium 147 H Potassium 4.5 Chloride 114 H Carbon Dioxide 20.9 L Anion Gap 12 BUN 79 H Creatinine 1.60 H Estimated GFR 32 L POC Glucose 155 H 146 H Random Glucose 145 H Lactic Acid Calcium 7.4 L* Prot Corrected Calcium 8.5 Magnesium Total Bilirubin 0.4 AST 10 L ALT 15 Alkaline Phosphatase 54 Total Protein 5.1 L Albumin 2.4 L 06/01/18 06/01/18 06/02/18 17:32 23:34 04:36 Sodium 146 H Potassium 4.6 Chloride 113 H Carbon Dioxide 22.0 Anion Gap 11 BUN 65 H Creatinine 1.43 H Estimated GFR 37 L POC Glucose 167 H 220 H Random Glucose 216 H Lactic Acid Calcium 7.8 L Prot Corrected Calcium Magnesium 2.4 Total Bilirubin 0.4 AST 9 L ALT 16 Alkaline Phosphatase 55 Total Protein 5.4 L Albumin 2.3 L 06/02/18 04:57 Sodium Potassium Chloride Carbon Dioxide Anion Gap BUN Creatinine Estimated GFR POC Glucose 215 H Random Glucose Lactic Acid Calcium Prot Corrected Calcium Magnesium Total Bilirubin AST ALT Alkaline Phosphatase Total Protein Albumin Imaging: ITS Impressions Abdomen/Bladder Ultrasound 05/31/18 00:00 CONCLUSION: 1. No obstructive uropathy or other acute abnormality demonstrated. 2. Benign cyst of the right kidney. Abdomen/Pelvis CT 05/31/18 00:00 CONCLUSION: 1. Cholelithiasis. 2. Colonic diverticulosis without definitive evidence for diverticulitis. 3. Prominent uterus with hypodense 6 cm mass anteriorly likely reflecting a pedunculated fibroid. 4. Appendix is not visualized and potentially obscured by the uterine fibroid. 5. Large fat-containing left-sided anterior abdominal wall hernia. 6. Diffuse soft tissue edema in the inferior abdominal pannus. Head CT 05/31/18 00:00 CONCLUSION: 1. No acute intracranial abnormality. 2. Minimal paranasal sinus mucosal disease. Chest X-Ray 06/02/18 06:00 CONCLUSION: 1. Stable tubes and lines. 2. Cardiomegaly with positive fluid balance. 3. Stable left and worsening right lower lung zone airspace disease. Physical Exam: GENERAL: Patient is a morbidly obese, well-developed female, on sedation, NAD, on the vent. SKIN: Cool and dry. Has some purplish skin in neck folds and axilla. Has abdominal striae. Has dark reddish papules in both legs some are linear ramon. Has dry skin in all her toes and between her toes. Has excoriations in her mons pubis/suprapubic region. Right 3rd toe with blackening and surrounding erythema noted. HEAD: Atraumatic. Normocephalic. No temporal wasting, or tenderness. EYES: [place] conjunctiva. Has bilateral conjunctival injection. Pupils equal, round and reactive to light. EARS, NOSE AND THROAT: Nose without bleeding or purulent nasal discharge. Mucous membranes moist. Orally intubated. NECK: Short and obese neck, supple, no meningeal signs CARDIOVASCULAR: Regular rate and rhythm. No murmurs, rubs or gallops heard RESPIRATORY: Decreased breath sounds both bases. Has bilateral wheezing ABDOMEN: Obese abdomen, soft, with striae, has large abdominal pannus, has obese mons pubis with excoriations, bowel sounds present and normoactive. No guarding. EXTREMITIES: No clubbing, pedal edema. Has mild mottling both feet. Rash as described in skin exam. Cool feet. NEUROLOGICAL: Opens eyes some, no Babinski, no clonus PSYCHIATRIC: Unable to assess LINE LIJ: No evidence of infection, has several PIV Assessment and Plan - Plan Impression Sepsis on presentation due to UTI, possible PNA L. Possible right 3rd toe osteomyelitis. Acute renal failure, likely multifactorial, dehydration, sepsis Respiratory failure, could have underlying ANIVAL due to morbid obesity, possibly PNA L - developed high pCo2 due to hypoventilation Rash looks like scabies, S/P Rx scabies with permethrim Recommendation Follow C/S: blood, urine and sputum. IV Cefepime for GNR coverage. Start Teflaro for skin coverage for MRSA possible right 3rd toe osteomyelitis. Continue Zithromax for now. Case dw : Right 3rd toe and other skin lesions/cellulitis on LLE back side as possible sources of infection/sepsis. Consult podiatry. Foot Xray. Follow cultures Follow clinically.
[2018-06-02] MEDS ORDERED: Midazolam 50 MG/50 ML Inj 50 MG/50 ML BAG IV.CONT PRN (12:27)
--- NOTE | 2018-06-02 12:43 | P.PNCC ---
Subjective Subjective Remarks/Hospital Course: Mrs. Scott is a 67-year-old female with past medical history significant for morbid obesity, type 2 diabetes, hypertension, probable COPD who was brought in by the family yesterday night because of increasing weakness and lethargic, this was ongoing for last 2 weeks got worse over the last 2 days. Unable to get detailed history from patient due to lethargy. ER workup showed patient had a urinary tract infection and sepsis, also chest x-ray showed bilateral interstitial infiltrates, and LLL consolidation. There is also evidence of acute kidney injury with creatinine up to 2.59, BUN 89. Intermittently having tachyarrhythmia/atrial flutter with rate in in 130s. Patient was admitted to the hospital service. At the time of hospitalist (Dr. Mckeon) evaluation patient was very lethargic and ABG showed a pH of 7.08 and a PCO2 of 91, PO2 was 70 on 5 L nasal cannula. Patient was immediately placed on BiPAP. Approximately after 45 minutes ABG was repeat showed only marginal improvement pH of 7.12 and PCO2 of 84. Patient was emergently transferred to the ICU and critical care was consulted I evaluated the patient in the ICU. She is currently on BiPAP 15/5. Patient is lethargic, even though arousable she falls right back to sleep. Airway protection was questionable. With severe hypercarbic respiratory failure complicated with sepsis, metabolic encephalopathy and acute kidney failure, decision was made to intubate the patient. I endotracheally intubate the patient in placed on the mechanical ventilation. Prior to and post intubation patient heart rate remained in 130s. Hypotensive postintubation, stat 2 L fluid boluses given. Also started on Levophed to keep map above 65. Patient had been placed on Rocephin and will discontinue this and start renally dosed cefepime, add azithromycin for atypical coverage. ID consulted for questionable scabies and sepsis with shock 06/02: Remains critically ill but stabilizing more. ABG shows correction of severe hypercapnia. FiO2 remains at 50%. Urine output adequate BUN remains elevated creatinine slightly improved. Received treatment with permethrin Subjective 06/02: Currently afebrile. Bradycardic on the ventilator. Will adjust sedation to midazolam and fentanyl drips. Tolerating tube feeds at 30 cc an hour. XRT of the right foot ordered. Objective Vital Signs / I&O: Vital Signs 06/01/18 15:37 06/01/18 15:38 06/01/18 16:00 Temperature 98.3 F Pulse Rate 60 69 Respiratory Rate 14 14 14 Blood Pressure 118/79 Pulse Oximetry 93 L 94 L 06/01/18 20:00 06/01/18 20:57 06/01/18 21:00 Temperature 97 F L Pulse Rate 60 62 Respiratory Rate 15 14 Blood Pressure 128/58 L Pulse Oximetry 94 L 95 06/01/18 21:12 06/01/18 21:17 06/02/18 00:00 Temperature 98 F Pulse Rate 70 70 Respiratory Rate 10 L 10 L 14 Blood Pressure 128/96 H Pulse Oximetry 96 94 L 06/02/18 02:09 06/02/18 04:00 06/02/18 05:12 Temperature 97.9 F Pulse Rate 100 H 64 Respiratory Rate 14 14 14 Blood Pressure 128/76 Pulse Oximetry 95 97 95 06/02/18 08:45 Temperature Pulse Rate 53 L Respiratory Rate 14 Blood Pressure Pulse Oximetry 96 Intake & Output 06/01/18 06/02/18 06/02/18 18:59 06:59 18:59 Intake Total 1590 / 1590 1063 / 1063 Output Total 1200 / 1200 1300 / 1300 Balance 390 / 390 -237 / -237 Weight 168.6 kg Intake: IV 1500 / 1500 400 / 400 Diprivan 1000 mg/100 ml Inj 1, 500 / 500 400 / 400 000 mg In 100 ml @ 5 MCG/KG/MIN 4.763 mls/hr IV.CONT TITRATE PRN Rx#:[id number] NS Inj 1,000 ML @ 75 mls/hr IV. 1000 / 1000 CONT .[id number] [facility] Rx#:[id number] Tube Feeding 90 / 90 263 / 263 Water Bolus Amount 400 / 400 Output: Urine 900 / 900 Stool 300 / 300 500 / 500 Urine Amount (Catheter) 800 / 800 Indwelling Urethral Catheter 800 / 800 Other: Date of Last Bowel Movement 06/01/18 06/02/18 Result Diagrams: 06/02/18 02:20 06/02/18 04:36 Other Results: Microbiology 05/30/18 22:21 Blood - Peripheral Aerobic Blood Culture - Preliminary No growth in 3 days 05/30/18 22:21 Blood - Peripheral Anaerobic Blood Culture - Preliminary No growth in 3 days 05/30/18 22:21 Blood - Peripheral Aerobic Blood Culture - Preliminary No growth in 3 days 05/30/18 22:21 Blood - Peripheral Anaerobic Blood Culture - Preliminary No growth in 3 days 05/31/18 14:50 Wound - Abdominal Gram Stain - Final 05/31/18 14:50 Wound - Abdominal Wound Culture - Final S. aureus MRSA 05/31/18 13:08 Urine - Catheterized Urine Streptococcus pneumoniae Antigen ( M - Final Presumptive negative for streptococcus pneumoniae antigen, suggesting no current or recent infection. Infection due to Streptococcus pneumoniae cannot be ruled out since the antigen present in the sample may be below the detection limit of the test. 05/31/18 13:08 Urine - Catheterized Urine Legionella Antigen - Final Presumptive negative for Legionella pneumophila serogroup 1 antigen in urine, suggesting no recent or recurrent infection. Infection due to Legionella cannot be ruled out since other serogroups and species may cause disease, antigen may not be present in urine in early infection, and the level of antigen present in the urine may be below the detection limit of the test. 05/30/18 22:56 Clean Catch Urine Urine Culture - Final 50-100,000 cfu/mL mixed leesa (probable contaminants ) Imaging: ITS Impressions Chest X-Ray 05/30/18 22:09 CONCLUSION: Cardiomegaly. Diffuse increased interstitial markings likely related to edema. Increased density at the left base with silhouetting of the left hemidiaphragm secondary to left base atelectasis, consolidation and/or effusion. Abdomen/Bladder Ultrasound 05/31/18 00:00 CONCLUSION: 1. No obstructive uropathy or other acute abnormality demonstrated. 2. Benign cyst of the right kidney. Abdomen/Pelvis CT 05/31/18 00:00 CONCLUSION: 1. Cholelithiasis. 2. Colonic diverticulosis without definitive evidence for diverticulitis. 3. Prominent uterus with hypodense 6 cm mass anteriorly likely reflecting a pedunculated fibroid. 4. Appendix is not visualized and potentially obscured by the uterine fibroid. 5. Large fat-containing left-sided anterior abdominal wall hernia. 6. Diffuse soft tissue edema in the inferior abdominal pannus. Head CT 05/31/18 00:00 CONCLUSION: 1. No acute intracranial abnormality. 2. Minimal paranasal sinus mucosal disease. Chest X-Ray 05/31/18 13:55 CONCLUSION: 1. Cardiomegaly with resolving interstitial edema and improving aeration in the left lung base. 2. Endotracheal tube appropriately positioned above the brittnee. Nasogastric tube is curled in the gastric fundus and the left IJ central venous catheter is identified. At the junction of the left and right brachiocephalic vein. Chest X-Ray 06/02/18 06:00 CONCLUSION: 1. Stable tubes and lines. 2. Cardiomegaly with positive fluid balance. 3. Stable left and worsening right lower lung zone airspace disease. Objective Remarks: GENERAL: 67-year-old female currently resting in bed orotracheally intubated SKIN: Cool and dry. Tinea cruris, axillary region and under the breasts. Excoriated pannus in back. Purple rash and excoriation bilateral lower extremity HEAD: Atraumatic. Normocephalic. No temporal wasting, or tenderness. EYES: Pupils equal, round and reactive to light. Extraocular movements are present EARS, NOSE AND THROAT: Edentulous. Mucous membranes dry. Orotracheally intubated NECK: Short and obese neck, supple, left IJ is clean dry and intact. CARDIOVASCULAR: Diminished heart sounds. Bradycardic. RR. No murmurs, rubs or gallops heard RESPIRATORY: Diminished breath sounds throughout due to body habitus. No wheezing ABDOMEN: Obese abdomen, soft, with multiple striae and excoriations EXTREMITIES: Positive pedal edema. Has mild mottling both feet. Purple rash and excoriation bilateral lower extremity. Necrotic appearing right third toe. NEUROLOGICAL: Intubated sedated with propofol. Spontaneously moves extremities to stimulation. Able to follow commands with upper extremities on sedation lightening Assessment and Plan - Assessment and Plan Plan: NEURO/Psych: Acute severe encephalopathy secondary to severe sepsis/hypercarbia Depression disorder NOS Chronic benzodiazepine use Currently a propofol drip at 40 mcg/kg/min for sedation while intubated. We will switch to midazolam drip and fentanyl drip due to sinus bradycardia Goal of RASS -[address] brain on admission revealed no acute intracranial findings Acetaminophen 650 every 6 hours as needed fever Holding citalopram 20 mg daily/home medication for depression. Resume clinically indicated On lorazepam 0.5 mg at night as needed. Currently on 1 mg every 15 minutes for possible seizure activity? RESP: Acute respiratory failure/hypercarbic and hypoxemic Acute COPD exacerbation Probable community-acquired pneumonia PRVC/AC 14/600/11/29/44 Ventilator bundle -DuoNeb every 4 hours scheduled and albuterol aerosols every 2 hours as needed -IV methylprednisolone succinate ol 60 mg every 12 -Check sputum culture, empiric antibiotics with cefepime, 1 dose of vancomycin and azithromycin -Start weaning trials in the next 24 hours CV: Atrial flutter with rapid ventricular response resolved Sinus bradycardia History of essential hypertension History of dyslipidemia -Currently on one half normal saline at 20 cc an hour with free water flushes 200 cc every 6 hours Off all vasopressors -Await 2d echo -s/p 1 dose of digoxin 250 mcg IV for rate control. Now NSR -Hold home medications lisinopril 20 mg daily and hydrochlorothiazide 12.5 mg daily in light of recent hypotension Currently on pravastatin 80 mg daily, hospital substitution for simvastatin 40 mg daily which is her home medication GI: Hypoalbuminemia Cholelithiasis Sigmoid diverticulosis Abdominal wall hernia/left-sided -Start tube feeds with Glucerna 1.5 goal 50 cc an hour. Dietary consult pending. Currently at 30 cc Lansoprazole for GI prophylaxis Docusate sodium/senna 1 tablet twice daily for bowel regimen CT abdomen/pelvis revealed cholelithiasis, sigmoid colonic diverticulosis, and abdominal wall hernia Renal/[employer]/: Acute kidney injury GFR currently 37 6 cm uterine fibroid Right renal cyst -Monitor renal function closely. Chappell catheter. -Acute renal failure workup per nephrology, check renal ultrasound -right renal cyst otherwise no signs of obstruction. -Nephrology consult appreciated, continue IV hydration as above ID: UTI Wound cultures positive for MRSA -ID following, continue cefepime and continue azithromycin. s/p 1 dose of vancomycin Pertinent cultures 05/31 -wound culture -MRSA 05/30 -blood cultures 2 -no growth 05/30 -UA -50- 100,000 -s/p Permethrin cream 5% for possible scabies HEME: CBC within normal limits. No indication for transfusion of blood products at this time -Monitor CBC, CMP, coags FEN/ENDO: Diabetes mellitus Hypernatremia Holding home medications Metformin 1000 mg twice daily includes at 5 mg twice daily. Insulin detemir 10 units at night and sliding scale insulin with Novolin R q. 6 hour Accu-Cheks -Electrolyte replacement per protocol -SSI. Add Levemir 10 U qhs MSK: Elevated BMI Necrotic appearing right third toe. X-ray and podiatry consult pending Wt loss encouragred PT evaluate and treat X-ray right foot pending PROPH: -Bilateral lower extremity SCDs. Heparin subcu 5000 units every 8 hours. Lansoprazole 30 mg daily LINES: -Left IJ central line placed 05/31/18 Level 2 follow-up
[2018-06-02] MEDS: fentaNYL 10 mcg/mL Premix Drip 2,500 MCG/250 ML BAG IV.SIG PRN (13:44)
[2018-06-02] MEDS: Midazolam 50 MG/50 ML Inj 50 MG/50 ML BAG IV.CONT PRN ×2 (13:45→21:12)
--- NOTE | 2018-06-02 13:45 | XR ---
EXAM DATE: 06/02/2018 1:41 PM EDT AGE/SEX: 67 years / Female INDICATIONS: Evaluate for foreign body. CLINICAL DATA: This is the patient's initial encounter. Patient reports that signs and symptoms have been present for 4 - 6 days and indicates a pain score of Nonresponsive. MEDICAL/SURGICAL HISTORY: Non-responsive. Non-responsive. COMPARISON: No prior exams available for comparison. FINDINGS: There appears to be destructive changes seen at the distal aspect of the third distal phalanx at the tuft. No other areas of bony destruction are seen. There is a 0.4 cm linear calcic location projectin g at the lateral proximal aspect of the third digit. On the lateral view, this appears to be in the p lantar soft tissues. CONCLUSION: There is a destructive change at the distal aspect of the third distal phalanx at the tuft. Osteomyel itis needs be considered. 0.4 cm calcific density seen at the proximal lateral plantar aspect of the third digit. Electronically signed by: Tone Montejo MD 06/02/2018 1:44 PM EDT
[2018-06-02] MEDS: Azithromycin Inj 500 MG in Sodium Chlor 0.9% Inj 250 ML IV.SIG SCH (14:07)
--- NOTE | 2018-06-02 15:00 | P.DIET ---
Nutritional Evaluation Type of nutrition evaluation: follow-up Nutrition consult regarding: Tube Feeding Nutrition screening: [facility] [place] Screening comments: 06/02/18 [facility] [place] TF'ing Subjective Subjective Comments: Assessment here uses SCCM and ASPEN Guidelines for critically ill patients w/ BMIs 30 and greater Objective - Diagnosis Acute Kidney Injury, UTI - Objective % IBW: 251 (IBW 65.9) Body Weight Used for Calculations: IBW Energy Needs - Lower Range (kCal/kg): 22 Energy Needs - Upper Range (kCal/kg): 25 Lower Limit kCal/kg (kCals): 1,450 Upper Limit kCal/kg (kCals): 1,648 Lower Limit Protein Factor (Grams per Kg): 2.0 Upper Limit Protein Factor (Grams per Kg): 2.5 Lower Protein Needs (Protein): 132 Upper Protein Needs (Protein): 165 Dietitian Reviewed in Medical Record: Curent medications, Intake & Output, Medical history, Tube feeding Diet Order: NPO Objective Comments: PMH: Morbid Obesity, DM-2, HTN, Probable COPD, Depression Labs Include: BUN 65, Creatinine 1.43, Accucheck 215 Meds Include: Propofol, HCTZ, Novolin R, Levemir, Lisinopril, Pravachol, Solumedrol +3BM, -UOP 2250ml Feeding - Current Tube Feeding Tube Feeding Product: Glucerna 1.5 Tube Feeding Rate: 30 Assessment Assessment: Pt is at high nutrition risk r/t need for TF'ing. To best meet pt's assessed needs w/TF'ing, Rec Vital High Protein @ goal rate 65ml/hr to offer 1560 kcal, 137g Protein and 1304ml free water. Additional Recs to Follow r/t Clinical Course. Recommendations: 1.To best meet pt's assessed needs w/TF'ing, Rec Vital High Protein @ goal rate 65ml/hr 2. Additional Recs to Follow r/t Clinical Course Dietitian to Monitor: Lab values, Electrolytes, Renal labs, Glucose level, Intake & Output, Tube feeding tolerance, Weight change, Medical course
--- NOTE | 2018-06-02 17:01 | ECHRPT ---
Indication: ATRIAL FIB CONCLUSIONS Normal left ventricular size. Mild concentric left ventricular hypertrophy. The left ventricular systolic function is low normal with an estimated ejection fraction in the rang e of 50- 55%. The right ventricle is mildly dilated. The right atrium is not well visualized. Trace mitral valve regurgitation. BP: / HR: Rhythm: Sinus MEASUREMENTS (Male / Female) Normal Values Technical Quality:Very technically difficult study 2D ECHO LV Diastolic Diameter PLAX 4.1 cm 4.2 - 5.9 / 3.9 - 5.3 cm LV Systolic Diameter PLAX 3.2 cm IVS Diastolic Thickness 1.1 cm 0.6 - 1.0 / 0.6 - 0.9 cm LVPW Diastolic Thickness 1.3 cm 0.6 - 1.0 / 0.6 - 0.9 cm LV Relative Wall Thickness 0.6 RV Internal Dim ED PLAX 4.2 cm LA Systolic Diameter LX 3.9 cm 3.0 - 4.0 / 2.7 - 3.8 cm DOPPLER PV Peak Velocity 41.4 cm/s PV Peak Gradient 0.7 mmHg FINDINGS LEFT VENTRICLE Normal left ventricular size. Mild concentric left ventricular hypertrophy. The left ventricular systolic function is low normal with an estimated ejection fraction in the rang e of 50- 55%. RIGHT VENTRICLE The right ventricle is mildly dilated. LEFT ATRIUM The left atrial size is normal. RIGHT ATRIUM The right atrial size is normal. The right atrium is not well visualized. ATRIAL SEPTUM Normal atrial septal thickness without atrial level shunting by limited color doppler interrogation. AORTA The aortic root and proximal ascending aorta are normal in size on limited imaging. MITRAL VALVE Trace mitral valve regurgitation. AORTIC VALVE No aortic valve stenosis or regurgitation. TRICUSPID VALVE Structurally normal tricuspid valve. No tricuspid valve stenosis or regurgitation. PULMONARY VALVE The pulmonary valve is not well visualized. VESSELS The inferior vena cava is normal in size. PERICARDIUM No pericardial effusion. Ryan Rousseau MD, FACC (Electronically Signed) Final Date:02 June 2018 17:00
[2018-06-02 17:07] LABS: Hemoglobin A1c 7.3 % (4.3-6.0)
[2018-06-02] MEDS: Hypromellose 0.3% Opth Gel 10 GM Bottle EACH EYE SCH (21:10)
[2018-06-02] MEDS: Insulin Detemir Inj 1,000 UNIT/10 ML Vial SQ SCH (21:11)
[2018-06-03] MEDS: Oral Hygiene Kit OROPHARYNG SCH ×4 (00:15→16:23)
[2018-06-03] MEDS: Insulin NovoLIN Regular Correctional Sugar Inj SQ SCH ×4 (00:15→18:35)
[2018-06-03] MEDS: Heparin - SQ 10,000 UNITS/ML Vial SQ SCH ×3 (03:25→23:12)
[2018-06-03 04:38] LABS: Albumin 2.4 g/dL (3.4-5.0); Calcium 7.4 mg/dL (8.5-10.1); Carbon Dioxide 27.3 meq/L (21.0-32.0); Magnesium 2.3 mg/dL (1.5-2.5); Phosphorus 2.7 mg/dL (2.5-4.9); Potassium 4.9 meq/L (3.5-5.1); Thyroid Stimulating Hormone 0.972 uIU/mL (0.358-3.740); Total Protein 5.3 g/dL (6.4-8.2)
--- NOTE | 2018-06-03 04:54 | XR ---
EXAM DATE: 06/03/2018 4:10 AM EDT AGE/SEX: 67 years / Female INDICATIONS: Shortness of breath. CLINICAL DATA: This is the patient's subsequent encounter. Patient reports that signs and symptoms h ave been present for 4 - 6 days and indicates a pain score of Nonresponsive. MEDICAL/SURGICAL HISTORY: Non-responsive. Non-responsive. COMPARISON: [facility] [place], CHEST 1V SINGLE AP, 06/02/2018. . FINDINGS: A single AP view of the chest demonstrates cardiomegaly with unchanged bilateral parenchymal opacitie s greater in the right lung. Endotracheal tube, nasogastric tube and left jugular central line stable position. The cardiomediastinal contours are unremarkable. Osseous structures are intact. CONCLUSION: Cardiomegaly with bilateral airspace disease greater in the right lung, unchanged. Electronically signed by: Braulio Flores MD 06/03/2018 4:53 AM EDT
--- NOTE | 2018-06-03 07:13 | MB ---
cc: Adarsh Collins DPM DATE: 06/03/2018 REASON FOR CONSULTATION: Possible right third digit osteomyelitis. HISTORY OF PRESENT ILLNESS: This is a 67-year-old female who was known to have weakness and lethargy. She then declined, became hypoxic, intubated and sedated. She is seen at bedside. The history is taken from the chart. The patient appears to be suffering from respiratory failure complicated with sepsis, metabolic encephalopathy and acute kidney failure. PAST MEDICAL HISTORY: Depression, diabetes, hypertension, obesity, hypertriglyceridemia, positive history of tobacco. ALLERGIES: NONE LISTED. INPATIENT MEDICATIONS: Azithromycin, cefepime, ceftaroline. Please see complete medication list in chart. PHYSICAL EXAMINATION: VITAL SIGNS: Temperature 97.6, pulse rate 57, respiratory rate 15 mechanically intubated and sedated. Blood pressure 129/79. She is sating 97% on room air. GENERAL: This is an obese female seen at bedside. EXTREMITIES: Bilateral lower extremities are examined. Right third digit appears to have erosive findings of the soft tissue envelope with likely exposed periosteum of the distal tuft of the right third digit. There is a circumferential distal dried gangrenous type change. The toe appears to be somewhat viable. There is no odor. There is no significant erythema. It appears to be a stable appearing chronic ulcer with likely exposed bone. Bilateral pedal pulses are palpable. Sensation appears to be intact to noxious stimuli. Left lower extremity is free from any obvious ulceration. LABORATORY FINDINGS: White blood cell 6.7, hemoglobin and hematocrit, 13 and 43, platelet is 157. Coagulation profile: PT 11.3, INR 1.1. Chem-7: Sodium 146, potassium 4.9, chloride 112, CO2 of 27.3, BUN 46, creatinine 1.15. X-RAY FINDINGS: There are destructive changes of the distal aspect of the third distal phalanx consistent with osteomyelitis. ASSESSMENT AND PLAN: Right third digit osteomyelitis with stable gangrenous changes to the distal right third digit. PLAN: Betadine swab was recommended at this time to keep it dry and stable. As the patient's condition improves, a right third digit amputation would be beneficial. It appears to be an issue, but I do not think it is a complete source of sepsis at this point. I am recommending we follow along and unless the patient improves, possible need for a digit amputation. Thank you for this consultation. SUBHASH Evans , 06:56 AM , 07:11 AM
[2018-06-03] MEDS: MethylPREDNISolone Sod Succinate Inj 125 MG/2 ML Vial IV.PUSH SCH (08:19)
[2018-06-03] MEDS: Senna/Docusate Sodium 8.6/50 MG Tablet PO SCH ×2 (08:19→21:40)
[2018-06-03] MEDS: Chlorhexidine 0.12% Oral Kit 15 ML UDC OROPHARYNG SCH ×2 (08:20→22:08)
--- NOTE | 2018-06-03 09:03 | P.PNCC ---
Subjective Subjective Remarks/Hospital Course: Mrs. Scott is a 67-year-old female with past medical history significant for morbid obesity, type 2 diabetes, hypertension, probable COPD who was brought in by the family yesterday night because of increasing weakness and lethargic, this was ongoing for last 2 weeks got worse over the last 2 days. Unable to get detailed history from patient due to lethargy. ER workup showed patient had a urinary tract infection and sepsis, also chest x-ray showed bilateral interstitial infiltrates, and LLL consolidation. There is also evidence of acute kidney injury with creatinine up to 2.59, BUN 89. Intermittently having tachyarrhythmia/atrial flutter with rate in in 130s. Patient was admitted to the hospital service. At the time of hospitalist (Dr. Mckeon) evaluation patient was very lethargic and ABG showed a pH of 7.08 and a PCO2 of 91, PO2 was 70 on 5 L nasal cannula. Patient was immediately placed on BiPAP. Approximately after 45 minutes ABG was repeat showed only marginal improvement pH of 7.12 and PCO2 of 84. Patient was emergently transferred to the ICU and critical care was consulted I evaluated the patient in the ICU. She is currently on BiPAP 15/. Patient is lethargic, even though arousable she falls right back to sleep. Airway protection was questionable. With severe hypercarbic respiratory failure complicated with sepsis, metabolic encephalopathy and acute kidney failure, decision was made to intubate the patient. I endotracheally intubate the patient in placed on the mechanical ventilation. Prior to and post intubation patient heart rate remained in 130s. Hypotensive postintubation, stat 2 L fluid boluses given. Also started on Levophed to keep map above 65. Patient had been placed on Rocephin and will discontinue this and start renally dosed cefepime, add azithromycin for atypical coverage. ID consulted for questionable scabies and sepsis with shock 06/02: Remains critically ill but stabilizing more. ABG shows correction of severe hypercapnia. FiO2 remains at 50%. Urine output adequate BUN remains elevated creatinine slightly improved. Received treatment with permethrin Subjective 06/02: Currently afebrile. Bradycardic on the ventilator. Will adjust sedation to midazolam and fentanyl drips. Tolerating tube feeds at 30 cc an hour. XRT of the right foot ordered. 06/03 No events overnight. Sedated with Versed and Fentanyl drips. Afebrile. Objective Vital Signs / I&O: Vital Signs 06/02/18 08:45 06/02/18 09:00 06/02/18 12:00 Temperature 98.3 F Pulse Rate 53 L 58 L 58 L Respiratory Rate 14 14 Blood Pressure 140/63 Pulse Oximetry 96 90 L 06/02/18 12:41 06/02/18 16:00 06/02/18 20:00 Temperature 98.3 F 98.5 F Pulse Rate 62 50 L Respiratory Rate 14 14 14 Blood Pressure 147/74 H 132/71 Pulse Oximetry 92 L 97 99 06/02/18 20:22 06/03/18 00:00 06/03/18 00:18 Temperature 97.8 F Pulse Rate 58 L 44 L Respiratory Rate 14 14 14 Blood Pressure 150/67 H Pulse Oximetry 100 97 96 06/03/18 04:00 06/03/18 07:53 06/03/18 08:00 Temperature 97.7 F 98.8 F Pulse Rate 57 L 69 66 Respiratory Rate 14 14 14 Blood Pressure 129/79 115/58 L Pulse Oximetry 97 97 97 Intake & Output 06/02/18 06/03/18 06/03/18 18:59 06:59 18:59 Intake Total 1560 / 1560 1062 / 1062 Output Total 1000 / 1000 1670 / 1670 Balance 560 / 560 -608 / -608 Weight 165 kg Intake: IV 800 / 800 150 / 150 Versed Inj 50 mg In 50 ml @ 2 50 / 50 MG/HR 2 mls/hr IV.CONT TITRATE PRN Rx#:[id number] Diprivan 1000 mg/100 ml Inj 1, 100 / 100 000 mg In 100 ml @ 5 MCG/KG/MIN 4.763 mls/hr IV.CONT TITRATE PRN Rx#:[id number] Azithromycin Inj 500 MG In NS 500 / 500 Inj 250 ML @ 250 mls/hr IV.SIG Q24H BECKY Rx#:[id number] Maxipime Inj 2,000 MG In NS Inj 200 / 200 100 ML @ 200 mls/hr IV.SIG Q24H BECKY Rx#:[id number] Teflaro Inj 600 MG In NS Inj 100 / 100 100 ML @ 100 mls/hr IV.SIG Q12H BECKY Rx#:[id number] Oral 0 / 0 Tube Feeding 360 / 360 512 / 512 Water Bolus Amount 400 / 400 400 / 400 Output: Urine 950 / 950 Stool 50 / 50 20 / 20 Urine Amount (Catheter) 1650 / 1650 Indwelling Urethral Catheter 1650 / 1650 Other: Date of Last Bowel Movement 06/02/18 06/03/18 Result Diagrams: 06/02/18 02:20 06/03/18 03:49 Other Results: Laboratory Results - last 12 hr 06/03/18 06/03/18 06/03/18 00:02 03:49 04:57 Sodium 146 H Potassium 4.9 Chloride 112 H Carbon Dioxide 27.3 Anion Gap 7 BUN 46 H Creatinine 1.15 H Estimated GFR 47 L POC Glucose 229 H 320 H Random Glucose 262 H Calcium 7.4 L* Prot Corrected Calcium 8.4 L Phosphorus 2.7 Magnesium 2.3 Total Bilirubin 0.4 AST 7 L ALT 14 Alkaline Phosphatase 53 Total Protein 5.3 L Albumin 2.4 L TSH 0.972 06/03/18 04:58 Sodium Potassium Chloride Carbon Dioxide Anion Gap BUN Creatinine Estimated GFR POC Glucose 316 H Random Glucose Calcium Prot Corrected Calcium Phosphorus Magnesium Total Bilirubin AST ALT Alkaline Phosphatase Total Protein Albumin TSH Imaging: Abdomen/Bladder Ultrasound 05/31/18 00:00 CONCLUSION: 1. No obstructive uropathy or other acute abnormality demonstrated. 2. Benign cyst of the right kidney. Abdomen/Pelvis CT 05/31/18 00:00 CONCLUSION: 1. Cholelithiasis. 2. Colonic diverticulosis without definitive evidence for diverticulitis. 3. Prominent uterus with hypodense 6 cm mass anteriorly likely reflecting a pedunculated fibroid. 4. Appendix is not visualized and potentially obscured by the uterine fibroid. 5. Large fat-containing left-sided anterior abdominal wall hernia. 6. Diffuse soft tissue edema in the inferior abdominal pannus. Head CT 05/31/18 00:00 CONCLUSION: 1. No acute intracranial abnormality. 2. Minimal paranasal sinus mucosal disease. Foot X-Ray 06/02/18 00:00 CONCLUSION: There is a destructive change at the distal aspect of the third distal phalanx at the tuft. Osteomyelitis needs be considered. 0.4 cm calcific density seen at the proximal lateral plantar aspect of the third digit. Chest X-Ray 06/03/18 06:00 CONCLUSION: Cardiomegaly with bilateral airspace disease greater in the right lung, unchanged. Objective Remarks: GENERAL: 67-year-old female currently resting in bed orotracheally intubated SKIN: Cool and dry. Tinea cruris, axillary region and under the breasts. Excoriated pannus in back. Purple rash and excoriation bilateral lower extremity HEAD: Atraumatic. Normocephalic. No temporal wasting, or tenderness. EYES: Pupils equal, round and reactive to light. Extraocular movements are present EARS, NOSE AND THROAT: Edentulous. Mucous membranes dry. Orotracheally intubated NECK: Short and obese neck, supple, left IJ is clean dry and intact. CARDIOVASCULAR: Diminished heart sounds. Bradycardic. RR. No murmurs, rubs or gallops heard RESPIRATORY: Diminished breath sounds throughout due to body habitus. No wheezing ABDOMEN: Obese abdomen, soft, with multiple striae and excoriations EXTREMITIES: Positive pedal edema. Has mild mottling both feet. Purple rash and excoriation bilateral lower extremity. Necrotic appearing right third toe. NEUROLOGICAL: Intubated sedated with propofol. Spontaneously moves extremities to stimulation. Able to follow commands with upper extremities on sedation lightening Assessment and Plan - Assessment and Plan Plan: NEURO/Psych: Acute severe encephalopathy secondary to severe sepsis/hypercarbia Depression disorder NOS Chronic benzodiazepine use On midazolam drip and fentanyl drip for sedation. Daily sedation vacation. Goal of RASS -2 CT brain on admission revealed no acute intracranial findings Acetaminophen 650 every 6 hours as needed fever Holding citalopram 20 mg daily/home medication for depression. Resume clinically indicated On lorazepam 0.5 mg at night as needed. Currently on 1 mg every 15 minutes for possible seizure activity? RESP: Acute respiratory failure/hypercarbic and hypoxemic Acute COPD exacerbation Probable community-acquired pneumonia PRVC/AC 14/600/11/29/44 Ventilator bundle -DuoNeb every 4 hours scheduled and albuterol aerosols every 2 hours as needed -Decrese IV methylprednisolone succinate 30 mg every 12 -SBT daily as kallie CV: Atrial flutter with rapid ventricular response resolved Sinus bradycardia History of essential hypertension History of dyslipidemia -Currently on one half normal saline at 20 cc an hour with free water flushes 200 cc every 6 hours Off all vasopressors -Echo showed EF 50-55% -Hold home medications lisinopril 20 mg daily and hydrochlorothiazide 12.5 mg daily in light of recent hypotension Currently on pravastatin 80 mg daily, hospital substitution for simvastatin 40 mg daily which is her home medication GI: Hypoalbuminemia Cholelithiasis Sigmoid diverticulosis Abdominal wall hernia/left-sided -on tube feeds with Glucerna 1.5 goal 50 cc an hour. 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 avoid nephrotoxins Renal function is improving with Cr:1.15 from 1.43 -Renal ultrasound -right renal cyst otherwise no signs of obstruction. -Nephrology is following, continue IV hydration as above On Free water 200ml Q6 Diurese with Lasix 40mg x1 ID: UTI Wound cultures positive for MRSA -ID following, continue cefepime , azithromycin and Teflaro. Monitor or signs of infections ( Fever, WBC) Right 3rd toe and other skin lesions/cellulitis on LLE likely sources of infection Xray foot: There is a destructive change at the distal aspect of the third distal phalanx at the tuft. 0.4 cm calcific density seen at the proximal lateral plantar aspect of the third digit. Podiatry is following, might need right third digit amputation per Podiatry Pertinent cultures 05/31 -wound culture -MRSA 05/30 -blood cultures 2 -no growth 05/30 -UA -50- 100,000 -s/p Permethrin cream 5% for possible scabies HEME: CBC within normal limits. No indication for transfusion of blood products at this time -Monitor CBC, CMP, coags FEN/ENDO: Diabetes mellitus Hypernatremia Holding home medications Metformin 1000 mg twice daily includes at 5 mg twice daily. Change Insulin detemir 10 units BID and SSI with Novolin R q. 6 hour Accu-Cheks MSK: Elevated BMI Necrotic appearing right third toe. Xray foot: There is a destructive change at the distal aspect of the third distal phalanx at the tuft. Podiatry is following, Wt loss encouraged PT evaluate and treat PROPH: -Bilateral lower extremity SCDs. Heparin subcu 5000 units every 8 hours. Lansoprazole 30 mg daily LINES: -Left IJ central line placed 05/31/18 Level 3 follow-up
[2018-06-03 09:10] LABS: Baso % (Auto) 0.2 % (0.0-2.0); Hemoglobin 13.1 gm/dL (11.6-15.3); Lymph # (Auto) 0.1 th/mm3 (1.0-4.8); Lymph % (Auto) 1.9 % (9.0-44.0); Mean Corpuscular Hemoglobin 27.4 pg (27.0-34.0); Mean Corpuscular Volume 89.6 fL (80.0-100.0); Mean Platelet Volume 8.2 fL (7.0-11.0); Mono # (Auto) 0.2 th/mm3 (0.0-0.9); Mono % (Auto) 2.7 % (0.0-8.0); Neut # (Auto) 7.5 th/mm3 (1.8-7.7); Neut % (Auto) 95.2 % (16.0-70.0); Platelet Count 150 th/mm3 (150-450); Red Cell Distribution Width 16.8 % (11.6-17.2); White Blood Count 7.9 th/mm3 (4.0-11.0)
[2018-06-03 09:13] LABS: Mean Corpuscular HGB Conc 30.6 % (32.0-36.0)
[2018-06-03] MEDS: Midazolam 50 MG/50 ML Inj 50 MG/50 ML BAG IV.CONT PRN (09:40)
[2018-06-03] MEDS: Insulin Detemir Inj 1,000 UNIT/10 ML Vial SQ SCH ×2 (09:40→22:06)
[2018-06-03] MEDS: fentaNYL 10 mcg/mL Premix Drip 2,500 MCG/250 ML BAG IV.SIG PRN (11:06)
--- NOTE | 2018-06-03 11:06 | P.PNID ---
Subjective Remarks: Patient is a 67-year-old female, lives at home with her son, brought into the hospital for evaluation of 2-3 week history of generalized weakness. According to the notes normally she can ambulate in her home using a walker. She was still able to do some ambulation, however for the past 2 days, patient apparently has not been able to get up. It was also noted that she was having some swelling in her abdomen and there was some mention of possible redness. There was no mention of any fever or chills. She has not been congested or coughing. She has not been complaining of any chest pain or any shortness of breath. There is been no nausea or vomiting, or complaints of any diarrhea or urinary complaints. She has known hypertension and diabetes, and there was mention that she has not been able to take her medications since she did not have any money to get her refills. She was initially admitted to the regular floor, and but she developed progressive lethargy, and she was transferred to the ICU. She has not been febrile. Her mental status continued to deteriorate, and she ended up getting intubated. Her chest x-ray showing opacity on the left base. She also has evidence of elevated creatinine, as well as hyperkalemia. Her urinalysis did show significant pyuria. She is getting fluid resuscitation. Currently her blood pressure is holding. Infectious disease consultation has been requested to evaluate the patient with severe sepsis, UTI, and possible scabies. Notes reviewed Afebrile BP ok On the vent, FiO2 at 45% On diprivan drip, moves extremities, opens eyes spontaneously. No generalized rash but has road rash like abrasions on back, LLE. RLE with 3rd toe blackening noted with erythema and tenderness. Diarrhea has dignishield. Stool Cdiff negative. dw grand daughter patient recently moved from [place] to [facility] and lives with her son. Patient uses a walker to go to bathroom. Smokes a lot. Stays in bed almost all day. Not able to take care of herself needs help with bathing, self care. Sleep apnea but does not use CPAP. Antibiotics: Cefepime Zithromax Vancomycin Lines: [facility] TLC Past Medical History: Depression Diabetes Hypertension Hypertriglyceridemia Allergies/Adverse Reactions: Allergies No Known Allergies Allergy (Verified 05/30/18 22:08) Objective Vital Signs 06/02/18 12:00 06/02/18 12:41 06/02/18 16:00 Temperature 98.3 F 98.3 F Pulse Rate 58 L 62 Respiratory Rate 14 14 14 Blood Pressure 140/63 147/74 H Pulse Oximetry 90 L 92 L 97 06/02/18 20:00 06/02/18 20:22 06/03/18 00:00 Temperature 98.5 F 97.8 F Pulse Rate 50 L 58 L Respiratory Rate 14 14 14 Blood Pressure 132/71 150/67 H Pulse Oximetry 99 100 97 06/03/18 00:18 06/03/18 04:00 06/03/18 07:53 Temperature 97.7 F Pulse Rate 44 L 57 L 69 Respiratory Rate 14 14 14 Blood Pressure 129/79 Pulse Oximetry 96 97 97 06/03/18 08:00 Temperature 98.8 F Pulse Rate 66 Respiratory Rate 14 Blood Pressure 115/58 L Pulse Oximetry 97 Intake & Output 06/02/18 06/03/18 06/03/18 18:59 06:59 18:59 Intake Total 1560 / 1560 1062 / 1062 0 / 0 Output Total 1000 / 1000 1670 / 1670 Balance 560 / 560 -608 / -608 0 / 0 Weight 165 kg Intake: IV 800 / 800 150 / 150 0 / 0 Versed Inj 50 mg In 50 ml @ 2 50 / 50 0 / 0 MG/HR 2 mls/hr IV.CONT TITRATE PRN Rx#:[id number] Diprivan 1000 mg/100 ml Inj 1, 100 / 100 000 mg In 100 ml @ 5 MCG/KG/MIN 4.763 mls/hr IV.CONT TITRATE PRN Rx#:[id number] Azithromycin Inj 500 MG In NS 500 / 500 Inj 250 ML @ 250 mls/hr IV.SIG Q24H BECKY Rx#:[id number] Maxipime Inj 2,000 MG In NS Inj 200 / 200 100 ML @ 200 mls/hr IV.SIG Q24H BECKY Rx#:[id number] Teflaro Inj 600 MG In NS Inj 100 / 100 100 ML @ 100 mls/hr IV.SIG Q12H BECKY Rx#:[id number] Oral 0 / 0 Tube Feeding 360 / 360 512 / 512 Water Bolus Amount 400 / 400 400 / 400 Output: Urine 950 / 950 Stool 50 / 50 20 / 20 Urine Amount (Catheter) 1650 / 1650 Indwelling Urethral Catheter 1649 Other: Date of Last Bowel Movement 06/02/18 06/03/18 05/30/18 22:21 Blood - Peripheral Aerobic Blood Culture - Preliminary No growth in 4 days 05/30/18 22:21 Blood - Peripheral Anaerobic Blood Culture - Preliminary No growth in 4 days 05/30/18 22:21 Blood - Peripheral Aerobic Blood Culture - Preliminary No growth in 4 days 05/30/18 22:21 Blood - Peripheral Anaerobic Blood Culture - Preliminary No growth in 4 days 05/31/18 14:50 Wound - Abdominal Gram Stain - Final 05/31/18 14:50 Wound - Abdominal Wound Culture - Final S. aureus MRSA 05/31/18 13:08 Urine - Catheterized Urine Streptococcus pneumoniae Antigen ( M - Final Presumptive negative for streptococcus pneumoniae antigen, suggesting no current or recent infection. Infection due to Streptococcus pneumoniae cannot be ruled out since the antigen present in the sample may be below the detection limit of the test. 05/31/18 13:08 Urine - Catheterized Urine Legionella Antigen - Final Presumptive negative for Legionella pneumophila serogroup 1 antigen in urine, suggesting no recent or recurrent infection. Infection due to Legionella cannot be ruled out since other serogroups and species may cause disease, antigen may not be present in urine in early infection, and the level of antigen present in the urine may be below the detection limit of the test. 05/30/18 22:56 Clean Catch Urine Urine Culture - Final 50-100,000 cfu/mL mixed leesa (probable contaminants ) Lab - Hematology Results 06/02/18 06/03/18 02:20 03:49 WBC 6.6 7.9 RBC 4.89 4.80 Hgb 13.4 13.1 Hct 43.8 43.0 MCV 89.6 89.6 MCH 27.4 27.4 MCHC 30.6 L 30.6 L RDW 16.8 16.8 Plt Count 157 150 MPV 7.5 8.2 Neut % (Auto) 95.2 H Lymph % (Auto) 1.9 L [place] % (Auto) 2.7 Eos % (Auto) 0.0 Baso % (Auto) 0.2 Neut # (Auto) 7.5 Lymph # (Auto) 0.1 L [place] # (Auto) 0.2 Eos # (Auto) 0.0 Baso # (Auto) 0.0 WBC Differential . Differential Comment Auto diff final Lab - Chemistry Results 06/01/18 06/01/18 06/01/18 12:31 17:32 23:34 Sodium Potassium Chloride Carbon Dioxide Anion Gap BUN Creatinine Estimated GFR POC Glucose 146 H 167 H 220 H Random Glucose Hemoglobin A1c Calcium Prot Corrected Calcium Phosphorus Magnesium Total Bilirubin AST ALT Alkaline Phosphatase Total Protein Albumin TSH 06/02/18 06/02/18 06/02/18 02:20 04:36 04:57 Sodium 146 H Potassium 4.6 Chloride 113 H Carbon Dioxide 22.0 Anion Gap 11 BUN 65 H Creatinine 1.43 H Estimated GFR 37 L POC Glucose 215 H Random Glucose 216 H Hemoglobin A1c 7.3 H Calcium 7.8 L Prot Corrected Calcium Phosphorus Magnesium 2.4 Total Bilirubin 0.4 AST 9 L ALT 16 Alkaline Phosphatase 55 Total Protein 5.4 L Albumin 2.3 L TSH 06/02/18 06/02/18 06/03/18 18:09 18:10 00:02 Sodium Potassium Chloride Carbon Dioxide Anion Gap BUN Creatinine Estimated GFR POC Glucose 297 H 297 H 229 H Random Glucose Hemoglobin A1c Calcium Prot Corrected Calcium Phosphorus Magnesium Total Bilirubin AST ALT Alkaline Phosphatase Total Protein Albumin TSH 06/03/18 06/03/18 06/03/18 03:49 04:57 04:58 Sodium 146 H Potassium 4.9 Chloride 112 H Carbon Dioxide 27.3 Anion Gap 7 BUN 46 H Creatinine 1.15 H Estimated GFR 47 L POC Glucose 320 H 316 H Random Glucose 262 H Hemoglobin A1c Calcium 7.4 L* Prot Corrected Calcium 8.4 L Phosphorus 2.7 Magnesium 2.3 Total Bilirubin 0.4 AST 7 L ALT 14 Alkaline Phosphatase 53 Total Protein 5.3 L Albumin 2.4 L TSH 0.972 Imaging: ITS Impressions Abdomen/Bladder Ultrasound 05/31/18 00:00 CONCLUSION: 1. No obstructive uropathy or other acute abnormality demonstrated. 2. Benign cyst of the right kidney. Abdomen/Pelvis CT 05/31/18 00:00 CONCLUSION: 1. Cholelithiasis. 2. Colonic diverticulosis without definitive evidence for diverticulitis. 3. Prominent uterus with hypodense 6 cm mass anteriorly likely reflecting a pedunculated fibroid. 4. Appendix is not visualized and potentially obscured by the uterine fibroid. 5. Large fat-containing left-sided anterior abdominal wall hernia. 6. Diffuse soft tissue edema in the inferior abdominal pannus. Head CT 05/31/18 00:00 CONCLUSION: 1. No acute intracranial abnormality. 2. Minimal paranasal sinus mucosal disease. Foot X-Ray 06/02/18 00:00 CONCLUSION: There is a destructive change at the distal aspect of the third distal phalanx at the tuft. Osteomyelitis needs be considered. 0.4 cm calcific density seen at the proximal lateral plantar aspect of the third digit. Chest X-Ray 06/03/18 06:00 CONCLUSION: Cardiomegaly with bilateral airspace disease greater in the right lung, unchanged. Physical Exam: GENERAL: Patient is a morbidly obese, well-developed female, on sedation, NAD, on the vent. SKIN: Cool and dry. Has some purplish skin in neck folds and axilla. Has abdominal striae. Has dark reddish papules in both legs some are linear ramon. Has dry skin in all her toes and between her toes. Has excoriations in her mons pubis/suprapubic region. Right 3rd toe with blackening and surrounding erythema noted. HEAD: Atraumatic. Normocephalic. No temporal wasting, or tenderness. EYES: [place] conjunctiva. Has bilateral conjunctival injection. Pupils equal, round and reactive to light. EARS, NOSE AND THROAT: Nose without bleeding or purulent nasal discharge. Mucous membranes moist. Orally intubated. NECK: Short and obese neck, supple, no meningeal signs CARDIOVASCULAR: Regular rate and rhythm. No murmurs, rubs or gallops heard RESPIRATORY: Decreased breath sounds both bases. Has bilateral wheezing ABDOMEN: Obese abdomen, soft, with striae, has large abdominal pannus, has obese mons pubis with excoriations, bowel sounds present and normoactive. No guarding. EXTREMITIES: No clubbing, pedal edema. Has mild mottling both feet. Rash as described in skin exam. Cool feet. NEUROLOGICAL: Opens eyes some, no Babinski, no clonus PSYCHIATRIC: Unable to assess LINE [facility]: No evidence of infection, has several PIV Assessment and Plan - Plan Impression Sepsis on presentation due to UTI, possible PNA L. Possible right 3rd toe osteomyelitis. Acute renal failure, likely multifactorial, dehydration, sepsis Respiratory failure, could have underlying ANIVAL due to morbid obesity, possibly PNA L - developed high pCo2 due to hypoventilation Rash looks like scabies, S/P Rx scabies with permethrim Recommendation Follow C/S: blood, urine and sputum. IV Cefepime for GNR coverage. Continue Teflaro for skin coverage for MRSA possible right 3rd toe osteomyelitis. DC Zithromax. Podiatry notes reviewed. WBC normal, no fevers, does not appear to be sepsis related resp deterioration rather it appears to be a COPD exacerbation in a smoker and obese patient with high likelihood of sleep apnea cw Hypercarbic resp failure. Follow cultures Follow clinically. [facility] administrator consult to help address goals of care gabino given family dynamics. May end up needing trach and PEG. I will be OOT from 06/04/2018. covering this weekend. back on 06/06/2018.
--- NOTE | 2018-06-03 12:29 | P.CONPAL ---
Consult Service: Palliative Care Requesting Physician: Krissy Vargas Reason for Consult: a. To assist with evaluation and management of symptoms including: pain, dyspnea, weakness b. To assist medical decision maker(s) with: better understanding of current medical conditions; weighing benefits/burdens of medical treatment options; making medical treatment decisions. Primary Care Provider: No Primary Care Physician History of Present Illness History of Present Illness: 67 yo morbidly obese female with DM, HTN Presented to ER 05/30 with weakness. She has had weakness for 2-3 weeks. Earlier that day she tried to get up and was only able to walk 2 steps, felt weak on her legs. She had been refusing to come to the hospital but her son and caregiver, Shad, finally convinced her to go. Reportedly she also had redness and swelling in her abdomen. She was intubated on 05/31 * 05/30 CXR showed cardiomegaly, likely edema, left base atelectasis, consolidation, and/or effusion. She was found to have a sepsis, SUNIL, UTI, and intermittent atrial flutter. * 05/31 She was subsequently developed change in mental status EKG showed atrial flutter with RVR. CT head negative. * She developed respiratory acidosis, put on bipap and transferred to [facility] [place] chest showed cholelithiasis, diverticulosis, mass uterus likely fibroid, abd hernia, pannicular edema. ID was consulted for sepsis, UTI, possible scabies. Vancomycin, zithromax, cefepime started as well as permethrin for the scabies. * Nephrology was consulted for renal insufficiency as she had creatinine 2.59 and potassium 5.8 on admission. Electroencephalograph Technician felt renal insufficiency was due to sepsis and volume depletion. * abd wound growing MRSA, BCX no growth 4 days * 06/01 Nutrition consulted for TF recs. * 06/03 Podiatry consulted for osteomyelitis with gangrenous changes to right 3rd toe, recommending amputation. Kidney function improving some. Function/Cognitive Trajectory: Reportedly she ambulates independently with walker, within the home. Requires some assistance with ADLs. She was living in a home with her son. In the last 2-3 weeks she has had worsening weakness. Caregiver verbalizes feeling overwhelmed Review of Systems unobtainable due to endotracheal tube, unobtainable due to mental status ( completed to best of my ability via EMR, provider discussion) Constitutional: Reports fatigue, Reports weakness Cardiovascular: Denies chest pain Gastrointestinal: Reports bloating Musculoskeletal: Reports abnormal walking (ambulates with walker), Reports muscle weakness Skin/Breast: Reports itching, Reports redness, Reports rash Neurologic: Reports weakness Psychiatric: Reports depression PMFSH - History History Provided By: Medical Record - Medical / Surgical Hx Neg / Unobtainable Medical Problems Denied: Unable to Obtain - Medical History Medical History: Medical History (Last Updated 05/31/18 @ 19:17 by Uche Narvaez MD) Depression Diabetes Hypertension Hypertriglyceridemia Morbid obesity - Family History Family History: Family History (Last Updated 06/03/18 @ 14:50 by FERNANDO Castillo) Grandparent Colon cancer - Tobacco History Tobacco Use In Past 30 Days: Yes Smoking Status: Heavy tobacco smoker Tobacco Type: Cigarettes Packs Per Day: 2 Years Smoked: 40 - Alcohol History How Often Do You Have a Drink Containing Alcohol: Monthly or less - Substance Use History Substance History: No History of Abuse - Travel History Recent Travel in the [place] Within the Last 8 Weeks: No Recent Travel Out of the Country Within the Last 8 Weeks: No - Immunization History Tetanus Immunization: Unsure Hx Influenza Vaccine This Season: No Medications and Allergies Active Medications: Active Medications Acetaminophen (Tylenol Liq) 650 mg PO Q6H PRN PRN Reason: FEVER Al Hydroxide/Mg Hydroxide (Milk Of Magnesia Liq) 30 ml PO Q12H PRN PRN Reason: Mild Constipation Albuterol (Duoneb Neb (Casie)) 1 ampul NEB Q4HR NEB CASIE Last Admin: 06/03/18 11:20 Dose: 1 ampul Albuterol (Albuterol Neb (Prn)) 2.5 mg NEB Q2HR NEB PRN PRN Reason: DYSPNEA Artificial Tears (Genteal Severe Dry Eye Relief 0.3% Opth Gel) 1 drops EACH EYE HS [facility] Last Admin: 06/02/18 21:10 Dose: 1 drops Bisacodyl (Dulcolax Supp) 10 mg RECTAL DAILY PRN PRN Reason: SEVERE CONSITIPATION Chlorhexidine Gluconate (Peridex 0.12% Oral Kit) 15 ml OROPHARYNG BID@0800, 2000 [facility] Last Admin: 06/03/18 08:20 Dose: 15 ml Citalopram Hydrobromide (Celexa) 20 mg PO DAILY [facility] Last Admin: 05/31/18 09:17 Dose: Not Given Dextrose (D50w Vial) 50 ml IV.PUSH UNSCH PRN PRN Reason: PER HYPOGLYCEMIA PROTOCOL Glucagon (Glucagon Inj) 1 mg OTHER PRN PRN PRN Reason: for Hypoglycemia Protocol Heparin Sodium (Porcine) (Heparin Inj) 5,000 units SQ Q8H [facility] Last Admin: 06/03/18 03:25 Dose: 5,000 units Azithromycin 500 mg/ Sodium (Chloride) 250 mls @ 250 mls/hr IV.SIG Q24H [facility] Last Infusion: 06/02/18 15:20 Dose: Infused Cefepime HCl 2,000 mg/ Sodium (Chloride) 100 mls @ 200 mls/hr IV.SIG Q24H [facility] Last Infusion: 06/02/18 17:30 Dose: Infused Sodium Chloride (1/2 Normal Saline Inj) 1,000 mls @ 20 mls/hr IV.CONT .Q24H [facility] Last Admin: 06/01/18 20:20 Dose: 20 mls/hr Fentanyl (Fentanyl 10 Mcg/Ml Premix Drip) 2,500 mcg in 250 mls @ 5 mls/hr IV.SIG TITRATE PRN; Protocol PRN Reason: Per Protocol Last Admin: 06/03/18 11:06 Dose: 100 mcg/hr, 10 mls/hr Midazolam HCl (Versed Inj) 50 mg in 50 mls @ 2 mls/hr IV.CONT TITRATE PRN; Protocol PRN Reason: Per Protocol Last Admin: 06/03/18 09:40 Dose: 4 mg/hr, 4 mls/hr Ceftaroline Fosamil 600 mg/ (Sodium Chloride) 100 mls @ 100 mls/hr IV.SIG Q12H [facility] Last Admin: 06/03/18 04:58 Dose: 100 mls/hr Insulin Detemir (Levemir Inj) 10 unit SQ BID [facility] Last Admin: 06/03/18 09:40 Dose: 10 unit Insulin Human Regular (Novolin R Supplemental Scale) 0 units SQ Q6HR [facility]; Protocol Last Admin: 06/03/18 05:47 Dose: 10 units Lactulose (Lactulose Liq) 30 ml PO DAILY PRN PRN Reason: SEVERE CONSITIPATION Lansoprazole (Prevacid Solutab) 30 mg NG/OG DAILY [facility] Last Admin: 06/03/18 08:20 Dose: 30 mg Lisinopril (Prinivil) 20 mg PO DAILY [facility] Last Admin: 06/01/18 08:29 Dose: 20 mg Lorazepam (Ativan Inj) 1 mg IV.PUSH Q2H PRN PRN Reason: SEIZURE ACTIVITY Methylprednisolone Sodium Succinate (Solumedrol Inj) 30 mg IV.PUSH Q12HR [facility] Ondansetron HCl (Zofran Inj) 4 mg IV.PUSH Q6H PRN PRN Reason: NAUSEA OR VOMITING Pravastatin Sodium (Pravachol) 80 mg PO QPM [facility] Last Admin: 06/02/18 18:29 Dose: 80 mg Senna/Docusate Sodium (Maira-Colace) 1 tab PO BID [facility] Last Admin: 06/03/18 08:19 Dose: 1 tab Sennosides (Senokot) 17.2 mg PO Q12H PRN PRN Reason: Moderate Constipation Sterile Water (Free Water) 200 ml NG/OG Q6HR [facility] Last Admin: 06/03/18 04:59 Dose: 200 ml Allergies Allergy/AdvReac Type Severity Reaction Status Date / Time No Known Allergies Allergy Verified 05/30/18 22:08 Home Medications Medication Instructions Recorded Confirmed Type citalopram 20 mg PO DAILY 05/30/18 05/30/18 History glipizide 5 mg PO BID 05/30/18 05/30/18 History lisinopril-hydrochlorothiazide 1 tab PO DAILY 05/30/18 05/31/18 History lorazepam 0.5 mg PO DAILY 05/30/18 05/30/18 History metformin 1,000 mg PO BID 05/30/18 05/30/18 History simvastatin 40 mg PO QPM 05/30/18 05/30/18 History Advance Directives Living Will: No Healthcare Surrogate: No Power of Container Maker: No Physical Exam Vital Signs: Vital Signs - 24 hr 06/02/18 12:00 06/02/18 12:41 06/02/18 16:00 Temperature 98.3 F 98.3 F Pulse Rate 58 L 62 Respiratory Rate 14 14 14 Blood Pressure 140/63 147/74 H Pulse Oximetry 90 L 92 L 97 06/02/18 20:00 06/02/18 20:22 06/03/18 00:00 Temperature 98.5 F 97.8 F Pulse Rate 50 L 58 L Respiratory Rate 14 14 14 Blood Pressure 132/71 150/67 H Pulse Oximetry 99 100 97 06/03/18 00:18 06/03/18 04:00 06/03/18 07:53 Temperature 97.7 F Pulse Rate 44 L 57 L 69 Respiratory Rate 14 14 14 Blood Pressure 129/79 Pulse Oximetry 96 97 97 06/03/18 08:00 06/03/18 11:21 Temperature 98.8 F Pulse Rate 66 65 Respiratory Rate 14 14 Blood Pressure 115/58 L Pulse Oximetry 97 95 I&O: Intake & Output 06/01/18 06/02/18 06/03/18 06/04/18 06:59 06:59 06:59 06:59 Intake Total 2550 / 2550 2653 / 2653 2622 / 2622 200 / 200 Output Total 2250 / 2250 2500 / 2500 2670 / 2670 Balance 300 / 300 153 / 153 -48 / -48 200 / 200 Weight 165.3 kg 168.6 kg 165 kg Physical Exam: CONSTITUTIONAL/GENERAL: morbidly obese female, sedated on vent TUBES/LINES/DRAINS: IJ, rectal bag, gutiérrez, ETtube SKIN: rash left axilla, marked striations left panniculus. right third toe dusky with nail changes HEAD: Atraumatic. Normocephalic. EYES: pupils constricted. No scleral icterus. Fundi not examined. ENT: Nose without bleeding or purulent drainage. Throat exam limited by ET tube NECK: Trachea midline. Supple, nontender. CARDIOVASCULAR: RRR without murmurs, gallops, or rubs. No JVD. RESPIRATORY/CHEST: course breath sounds, wheezes throughout. GASTROINTESTINAL: Abdomen soft, obese, +hernia. Bowel sounds present. pitting edema panniculus + rectal bag GENITOURINARY: Without palpable bladder distension. Gutiérrez catheter in place. MUSCULOSKELETAL: generalized edema. BUE soft restraints NEUROLOGICAL: opens eyes. sedated on vent PSYCHIATRIC: unable to assess, pt sedated on vent Diagnostic Tests Laboratory: Laboratory Results - last 72 hr 05/31/18 05/31/18 05/31/18 12:50 13:30 15:33 WBC RBC Hgb Hct MCV MCH MCHC RDW Plt Count MPV Neut % (Auto) Lymph % (Auto) [place] % (Auto) Eos % (Auto) Baso % (Auto) Neut # (Auto) Lymph # (Auto) [place] # (Auto) Eos # (Auto) Baso # (Auto) WBC Differential Differential Comment Puncture Site Left radial Right radial Patient Temperature 98.6 98.6 O2 Saturation 92 90 ABG pH 7.12 L* 7.25 L* ABG pCO2 81 H* 46 H ABG pO2 84 72 ABG HCO3 25 19 L ABG O2 Content 18.3 16.9 ABG Base Excess -3.5 L -6.6 L ABG Methemoglobin 0.6 1.3 Calin Test Y Present Hemoglobin 14.2 13.3 Carboxyhemoglobin 2.8 2.3 O2 Delivery Device Bipap Ventilator Vent Setting 15/5 Prvc/ac Inspired O2 40 60 Critical Value Yes Yes Sodium 143 Potassium 5.6 H Chloride 110 H Carbon Dioxide 24.2 Anion Gap 9 BUN 89 H Creatinine 1.95 H Estimated GFR 26 L POC Glucose Random Glucose 134 H Hemoglobin A1c Lactic Acid Calcium 7.8 L Prot Corrected Calcium Phosphorus Magnesium Total Bilirubin 0.2 AST 11 L ALT 17 Alkaline Phosphatase 51 Total Protein 5.2 L D Albumin 2.3 L D TSH Stl C.difficile Tox PCR St C. diff Tox Epid 027 Random Vancomycin 05/31/18 05/31/18 05/31/18 17:05 17:06 18:13 WBC RBC Hgb Hct MCV MCH MCHC RDW Plt Count MPV Neut % (Auto) Lymph % (Auto) [place] % (Auto) Eos % (Auto) Baso % (Auto) Neut # (Auto) Lymph # (Auto) [place] # (Auto) Eos # (Auto) Baso # (Auto) WBC Differential Differential Comment Puncture Site Patient Temperature O2 Saturation ABG pH ABG pCO2 ABG pO2 ABG HCO3 ABG O2 Content ABG Base Excess ABG Methemoglobin Calin Test Hemoglobin Carboxyhemoglobin O2 Delivery Device Vent Setting Inspired O2 Critical Value Sodium Potassium Chloride Carbon Dioxide Anion Gap BUN Creatinine Estimated GFR POC Glucose 110 119 H Random Glucose Hemoglobin A1c Lactic Acid 0.9 Calcium Prot Corrected Calcium Phosphorus Magnesium Total Bilirubin AST ALT Alkaline Phosphatase Total Protein Albumin TSH Stl C.difficile Tox PCR St C. diff Tox Epid 027 Random Vancomycin 05/31/18 06/01/18 06/01/18 20:35 01:09 05:08 WBC RBC Hgb Hct MCV MCH MCHC RDW Plt Count MPV Neut % (Auto) Lymph % (Auto) [place] % (Auto) Eos % (Auto) Baso % (Auto) Neut # (Auto) Lymph # (Auto) [place] # (Auto) Eos # (Auto) Baso # (Auto) WBC Differential Differential Comment Puncture Site Patient Temperature O2 Saturation ABG pH ABG pCO2 ABG pO2 ABG HCO3 ABG O2 Content ABG Base Excess ABG Methemoglobin Calin Test Hemoglobin Carboxyhemoglobin O2 Delivery Device Vent Setting Inspired O2 Critical Value Sodium Potassium 5.0 Chloride Carbon Dioxide Anion Gap BUN Creatinine Estimated GFR POC Glucose 125 H 155 H Random Glucose Hemoglobin A1c Lactic Acid Calcium Prot Corrected Calcium Phosphorus Magnesium Total Bilirubin AST ALT Alkaline Phosphatase Total Protein Albumin TSH Stl C.difficile Tox PCR St C. diff Tox Epid 027 Random Vancomycin 06/01/18 06/01/18 06/01/18 05:11 05:11 06:42 WBC 5.1 RBC 4.75 Hgb 13.1 Hct 42.6 MCV 89.7 MCH 27.7 MCHC 30.8 L RDW 17.0 Plt Count 141 L MPV 7.6 Neut % (Auto) 95.4 H Lymph % (Auto) 3.4 L [place] % (Auto) 1.2 Eos % (Auto) 0.0 Baso % (Auto) 0.0 Neut # (Auto) 4.8 Lymph # (Auto) 0.2 L [place] # (Auto) 0.1 Eos # (Auto) 0.0 Baso # (Auto) 0.0 WBC Differential . Differential Comment Auto diff final Puncture Site Right radial Patient Temperature 98.6 O2 Saturation 93 ABG pH 7.38 ABG pCO2 31 L ABG pO2 77 ABG HCO3 18 L ABG O2 Content 18.0 ABG Base Excess -6.4 L ABG Methemoglobin 1.4 Calin Test Present Hemoglobin 13.8 Carboxyhemoglobin 1.5 O2 Delivery Device Vent Vent Setting Prvc/ac Inspired O2 50 Critical Value No Sodium 147 H Potassium 4.5 Chloride 114 H Carbon Dioxide 20.9 L Anion Gap 12 BUN 79 H Creatinine 1.60 H Estimated GFR 32 L POC Glucose Random Glucose 145 H Hemoglobin A1c Lactic Acid Calcium 7.4 L* Prot Corrected Calcium 8.5 Phosphorus Magnesium Total Bilirubin 0.4 AST 10 L ALT 15 Alkaline Phosphatase 54 Total Protein 5.1 L Albumin 2.4 L TSH Stl C.difficile Tox PCR St C. diff Tox Epid 027 Random Vancomycin 6.7 06/01/18 06/01/18 06/01/18 12:31 17:32 23:34 WBC RBC Hgb Hct MCV MCH MCHC RDW Plt Count MPV Neut % (Auto) Lymph % (Auto) [place] % (Auto) Eos % (Auto) Baso % (Auto) Neut # (Auto) Lymph # (Auto) [place] # (Auto) Eos # (Auto) Baso # (Auto) WBC Differential Differential Comment Puncture Site Patient Temperature O2 Saturation ABG pH ABG pCO2 ABG pO2 ABG HCO3 ABG O2 Content ABG Base Excess ABG Methemoglobin Calin Test Hemoglobin Carboxyhemoglobin O2 Delivery Device Vent Setting Inspired O2 Critical Value Sodium Potassium Chloride Carbon Dioxide Anion Gap BUN Creatinine Estimated GFR POC Glucose 146 H 167 H 220 H Random Glucose Hemoglobin A1c Lactic Acid Calcium Prot Corrected Calcium Phosphorus Magnesium Total Bilirubin AST ALT Alkaline Phosphatase Total Protein Albumin TSH Stl C.difficile Tox PCR St C. diff Tox Epid 027 Random Vancomycin 06/02/18 06/02/18 06/02/18 02:20 02:20 04:36 WBC 6.6 RBC 4.89 Hgb 13.4 Hct 43.8 MCV 89.6 MCH 27.4 MCHC 30.6 L RDW 16.8 Plt Count 157 MPV 7.5 Neut % (Auto) Lymph % (Auto) [place] % (Auto) Eos % (Auto) Baso % (Auto) Neut # (Auto) Lymph # (Auto) [place] # (Auto) Eos # (Auto) Baso # (Auto) WBC Differential Differential Comment Puncture Site Patient Temperature O2 Saturation ABG pH ABG pCO2 ABG pO2 ABG HCO3 ABG O2 Content ABG Base Excess ABG Methemoglobin Calin Test Hemoglobin Carboxyhemoglobin O2 Delivery Device Vent Setting Inspired O2 Critical Value Sodium 146 H Potassium 4.6 Chloride 113 H Carbon Dioxide 22.0 Anion Gap 11 BUN 65 H Creatinine 1.43 H Estimated GFR 37 L POC Glucose Random Glucose 216 H Hemoglobin A1c 7.3 H Lactic Acid Calcium 7.8 L Prot Corrected Calcium Phosphorus Magnesium 2.4 Total Bilirubin 0.4 AST 9 L ALT 16 Alkaline Phosphatase 55 Total Protein 5.4 L Albumin 2.3 L TSH Stl C.difficile Tox PCR St C. diff Tox Epid 027 Random Vancomycin 06/02/18 06/02/18 06/02/18 04:57 07:10 18:09 WBC RBC Hgb Hct MCV MCH MCHC RDW Plt Count MPV Neut % (Auto) Lymph % (Auto) [place] % (Auto) Eos % (Auto) Baso % (Auto) Neut # (Auto) Lymph # (Auto) [place] # (Auto) Eos # (Auto) Baso # (Auto) WBC Differential Differential Comment Puncture Site Patient Temperature O2 Saturation ABG pH ABG pCO2 ABG pO2 ABG HCO3 ABG O2 Content ABG Base Excess ABG Methemoglobin Calin Test Hemoglobin Carboxyhemoglobin O2 Delivery Device Vent Setting Inspired O2 Critical Value Sodium Potassium Chloride Carbon Dioxide Anion Gap BUN Creatinine Estimated GFR POC Glucose 215 H 297 H Random Glucose Hemoglobin A1c Lactic Acid Calcium Prot Corrected Calcium Phosphorus Magnesium Total Bilirubin AST ALT Alkaline Phosphatase Total Protein Albumin TSH Stl C.difficile Tox PCR Negative St C. diff Tox Epid 027 Negative Random Vancomycin 06/02/18 06/03/18 06/03/18 18:10 00:02 03:49 WBC 7.9 RBC 4.80 Hgb 13.1 Hct 43.0 MCV 89.6 MCH 27.4 MCHC 30.6 L RDW 16.8 Plt Count 150 MPV 8.2 Neut % (Auto) 95.2 H Lymph % (Auto) 1.9 L [place] % (Auto) 2.7 Eos % (Auto) 0.0 Baso % (Auto) 0.2 Neut # (Auto) 7.5 Lymph # (Auto) 0.1 L [place] # (Auto) 0.2 Eos # (Auto) 0.0 Baso # (Auto) 0.0 WBC Differential . Differential Comment Auto diff final Puncture Site Patient Temperature O2 Saturation ABG pH ABG pCO2 ABG pO2 ABG HCO3 ABG O2 Content ABG Base Excess ABG Methemoglobin Calin Test Hemoglobin Carboxyhemoglobin O2 Delivery Device Vent Setting Inspired O2 Critical Value Sodium Potassium Chloride Carbon Dioxide Anion Gap BUN Creatinine Estimated GFR POC Glucose 297 H 229 H Random Glucose Hemoglobin A1c Lactic Acid Calcium Prot Corrected Calcium Phosphorus Magnesium Total Bilirubin AST ALT Alkaline Phosphatase Total Protein Albumin TSH Stl C.difficile Tox PCR St C. diff Tox Epid 027 Random Vancomycin 06/03/18 06/03/18 06/03/18 03:49 04:57 04:58 WBC RBC Hgb Hct MCV MCH MCHC RDW Plt Count MPV Neut % (Auto) Lymph % (Auto) [place] % (Auto) Eos % (Auto) Baso % (Auto) Neut # (Auto) Lymph # (Auto) [place] # (Auto) Eos # (Auto) Baso # (Auto) WBC Differential Differential Comment Puncture Site Patient Temperature O2 Saturation ABG pH ABG pCO2 ABG pO2 ABG HCO3 ABG O2 Content ABG Base Excess ABG Methemoglobin Calin Test Hemoglobin Carboxyhemoglobin O2 Delivery Device Vent Setting Inspired O2 Critical Value Sodium 146 H Potassium 4.9 Chloride 112 H Carbon Dioxide 27.3 Anion Gap 7 BUN 46 H Creatinine 1.15 H Estimated GFR 47 L POC Glucose 320 H 316 H Random Glucose 262 H Hemoglobin A1c Lactic Acid Calcium 7.4 L* Prot Corrected Calcium 8.4 L Phosphorus 2.7 Magnesium 2.3 Total Bilirubin 0.4 AST 7 L ALT 14 Alkaline Phosphatase 53 Total Protein 5.3 L Albumin 2.4 L TSH 0.972 Stl C.difficile Tox PCR St C. diff Tox Epid 027 Random Vancomycin Result Diagrams: 06/06/18 03:00 06/06/18 03:00 Microbiology: Microbiology 05/30/18 22:21 Aerobic Blood Culture - Preliminary Blood - Peripheral No growth in 4 days Anaerobic Blood Culture - Preliminary No growth in 4 days 05/30/18 22:21 Aerobic Blood Culture - Preliminary Blood - Peripheral No growth in 4 days Anaerobic Blood Culture - Preliminary No growth in 4 days 05/31/18 14:50 Gram Stain - Final Wound - Abdominal Wound Culture - Final S. aureus MRSA 05/31/18 13:08 Streptococcus pneumoniae Antigen (M - Final Urine - Catheterized Urine Presumptive negative for streptococcus pneumoniae antigen, suggesting no current or recent infection. Infection due to Streptococcus pneumoniae cannot be ruled out since the antigen present in the sample may be below the detection limit of the test. 05/31/18 13:08 Legionella Antigen - Final Urine - Catheterized Urine Presumptive negative for Legionella pneumophila serogroup 1 antigen in urine, suggesting no recent or recurrent infection. Infection due to Legionella cannot be ruled out since other serogroups and species may cause disease, antigen may not be present in urine in early infection, and the level of antigen present in the urine may be below the detection limit of the test. 05/30/18 22:56 Urine Culture - Final Clean Catch Urine 50-100,000 cfu/mL mixed leesa (probable contaminants) Procedures: 05/31 intubated 05/31 IJ placed Patient/Family Conference Present at Family Conference: Pt's son Shad Family Conference Location: Telephone Issues Discussed: * Palliative care role, purpose, approach * Additional medical, psychosocial, and spiritual history * Patients general health, functional status, and cognitive changes in the months leading up to the current hospitalization * briefly reviewed son's understanding of the current medical problems * briefly reviewed Current medical treatment options and benefits/burdens of those options - specifically that pt would need tracheostomy and feeding tube if she remains on vent intermediate frame tender * Questions answered to the best of my ability * Palliative care contact information provided * set up tentative meeting with Shad and his sister Yissel Sanchez" who live locally ; and possible teleconference with other available children of the pt. -Spoke with son Adarsh VICENTE" on phone. Discussed above with him. He verbalized willingness to participate in medical decision making and said he would be available for telephone conference on Wednesday. -Son Shad verbalizes aggressive goals short of feeding tube and trach, feels his other siblings will agree. Shad hopes that his mother will recover enough to "wake up and sign a form" designated him and his sister Yissel Sanchez" as her surrogates. -Attempted to contact [place], [place] and spoke with NEENA Dc. Will call back Wednesday when ppl are back in office to see if Sarwat Toribio can be made available to participate in medical decision making Assessment and Plan - Disease Oriented Problem List (1) Respiratory failure (2) Sepsis secondary to UTI (3) COPD exacerbation (4) Acute kidney injury (5) Acute UTI (urinary tract infection) (6) SVT (supraventricular tachycardia) Pertinent Non-Medical Issues: Psychosocial: 3 months ago moved from [place] to [place]. Lives at home with son Shad, daughter Yissel Sanchez" and Shad's . Shad and his take care of pt. She is originally from . She worked at [employer] for 14 years. She was but her 2 years ago. Spiritual: per son she identified with no particular mandaeism Legal: pt incapacitated to make decisions at this time. It is not clear if she will regain that capacity. [place] statutes medical decision making would fall to the majority of her 6 children. Ethical issues impacting care: none identified Important Contacts: Son Shad (local) [phone] Daughter Yissel Sanchez" (local) [phone] [place] Children: Adrian Scott ? Adarsh "SARAI" Tyler [phone] Dayna Scott ? Sarwat Osborne (incarcerated) - [facility], [place] Prognosis: 67 yo morbidly obese female with hx tobacco abuse, diabetes who presented with progressive weakness and was found to be septic with SUNIL, UTI. She developed respiratory distress and was intubated. Her kidney function has improved somewhat. Her underlying morbid obesity may significantly impair her ability to recover from a respiratory standpoint, as will her likely underlying COPD. Prior she was mostly sedentary and unable to care for herself; much of that burden had fallen to her son who admittedly is quite overwhelmed. If she requires ventilatory support beyond another week, she will require tracheostomy and feeding tube. Should she recover enough to be extubated, she will need placement in a nursing facility. Her numerous comorbidities and poor prior health status put her at significant risk for continued complications and decline. Code Status: Full Code Plan: * LEGAL DECISION MAKER - pt incapacitated to make decisions at this time. It is not clear if she will regain that capacity. [place] medical decision making would fall to the majority of her 5 children. * GOALS - Son Shad verbalizes aggressive goals short of feeding tube and trach, feels pt's other children will agree. Shad hopes that his mother will recover enough to "wake up and sign a form" designated him and his sister Yissel Sanchez" as her surrogates. Pending meeting with other family members. * CODE STATUS - FULL CODE * SYMPTOMS - * dyspnea - multifactorial. intubated 05/31 after change in mental status. reported hx ANIVAL untreated, COPD, heavy tobacco use, ?pickwick syndrome, +atrial flutter with RVR. ID feels respiratory issues 2/2 COPD exacerbation in obese smoker. Currently sedated on vent, PEEP 8, pressure 15. ID is following. Has scheduled duonebs, midazolam drip 4ml/hr * pain - multifactorial 2/2 multiples lines, catheter, discomfort from ET tube. Appears comfortable on my eval. Has fentanyl dripl 10ml/hr * weakness/debility - 2/2 morbid obesity, sedentary lifestyle and subsequent deconditioning, sepsis. Was having lower extremity weakness for prior 3 weeks and on admission was unable to get up. PT following. * Family meeting with Shad and Yissel "Nallely" and teleconference with any available siblings tentatively Wednesday 06/06. * Attempted to contact [facility] and spoke with NEENA Dc. Will call back Wednesday when ppl are back in office to see if Sarwat Toribio can be made available to participate in medical decision making * Palliative care will continue to follow as hospital course evolves to assist pt/decision makers weight benefits and burdens of treatment options, and assist with symptoms of palliative concern Appreciation Thank you for the opportunity to participate in the care of Virgen Scott. Attestation Attestation: To help prompt me to consider important information that might be impacting today's encounter and assessment, information from prior notes written by myself or my colleagues may have been "brought forward" into today's note. My signature on this note, however, is an attestation that I personally performed the exam, history, and/or decision-making noted today, and, unless otherwise indicated, the interactions with patient, family, and staff as well as the review of records all occurred today. I also attest that the listed assessment and stated plan reflect my best clinical judgment today based on the combination of historical information, prior notes, and today's exam/ interactions. When time spent is documented, it refers only to time spent today by the signer, or if indicated, combined time spent today by collaborating physician/nurse practitioner.
[2018-06-03] MEDS: Azithromycin Inj 500 MG in Sodium Chlor 0.9% Inj 250 ML IV.SIG SCH (14:08)
[2018-06-03] MEDS: MethylPREDNISolone Sod Succinate Inj 40 MG/ML Vial IV.PUSH SCH (22:06)
[2018-06-03] MEDS: Hypromellose 0.3% Opth Gel 10 GM Bottle EACH EYE SCH (22:07)
[2018-06-03] MEDS: Sodium Chloride 0.45 % Inj 1,000 ML IV.CONT SCH (22:07)
[2018-06-04] MEDS: Insulin NovoLIN Regular Correctional Sugar Inj SQ SCH ×4 (00:23→18:17)
[2018-06-04] MEDS: Oral Hygiene Kit OROPHARYNG SCH ×4 (00:24→16:49)
[2018-06-04] MEDS: Heparin - SQ 10,000 UNITS/ML Vial SQ SCH ×3 (03:24→18:14)
[2018-06-04 05:46] LABS: Baso % (Auto) 0.2 % (0.0-2.0); Hematocrit 42.8 % (35.0-46.0); Hemoglobin 13.1 gm/dL (11.6-15.3); Lymph # (Auto) 0.2 th/mm3 (1.0-4.8); Lymph % (Auto) 2.1 % (9.0-44.0); Mean Corpuscular Hemoglobin 27.1 pg (27.0-34.0); Mean Corpuscular Volume 88.7 fL (80.0-100.0); Mean Platelet Volume 7.8 fL (7.0-11.0); Mono # (Auto) 0.3 th/mm3 (0.0-0.9); Mono % (Auto) 3.6 % (0.0-8.0); Neut # (Auto) 7.3 th/mm3 (1.8-7.7); Neut % (Auto) 94.1 % (16.0-70.0); Platelet Count 130 th/mm3 (150-450); Red Blood Count 4.83 mil/mm3 (4.00-5.30); Red Cell Distribution Width 17.1 % (11.6-17.2); White Blood Count 7.8 th/mm3 (4.0-11.0)
--- NOTE | 2018-06-04 05:51 | XR ---
EXAM DATE: 06/04/2018 5:48 AM EDT AGE/SEX: 67 years / Female INDICATIONS: Shortness of breath. CLINICAL DATA: This is the patient's subsequent encounter. Patient reports that signs and symptoms h ave been present for 4 - 6 days and indicates a pain score of Nonresponsive. MEDICAL/SURGICAL HISTORY: . Hypertension. Depression. Diabetes. Hypertriglyceridemia None. COMPARISON: [facility], CHEST 1V SINGLE AP, 06/03/2018. . FINDINGS: Endotracheal tube, nasogastric tube and left neck central line are stable in position. Diffuse bilate ral pleural-parenchymal opacity persists, grossly unchanged. Accounting for rotation, cardiac contour s appear stable. CONCLUSION: No significant change Electronically signed by: Tone Jeffery MD 06/04/2018 5:50 AM EDT
[2018-06-04 05:54] LABS: Mean Corpuscular HGB Conc 30.5 % (32.0-36.0)
[2018-06-04 06:09] LABS: Alanine Aminotransferase 21 U/L (10-53); Albumin 2.4 g/dL (3.4-5.0); Anion Gap 7 meq/L (5-15); Aspartate Aminotransferase 9 U/L (15-37); Blood Urea Nitrogen 40 mg/dL (7-18); Calcium 7.9 mg/dL (8.5-10.1); Carbon Dioxide 29.2 meq/L (21.0-32.0); Chloride 108 meq/L (98-107); Glomerular Filtration Rate 55 mL/min (>89); Glucose,Random 263 mg/dL (74-106); Potassium 5.1 meq/L (3.5-5.1); Sodium 144 meq/L (136-145)
[2018-06-04 06:11] LABS: Alkaline Phosphatase 50 U/L (45-117); Total Protein 5.4 g/dL (6.4-8.2)
[2018-06-04] MEDS: Insulin Detemir Inj 1,000 UNIT/10 ML Vial SQ SCH ×2 (08:40→20:49)
[2018-06-04] MEDS: MethylPREDNISolone Sod Succinate Inj 40 MG/ML Vial IV.PUSH SCH ×2 (08:40→20:49)
[2018-06-04] MEDS: Chlorhexidine 0.12% Oral Kit 15 ML UDC OROPHARYNG SCH ×2 (08:41→21:12)
[2018-06-04] MEDS: Senna/Docusate Sodium 8.6/50 MG Tablet PO SCH ×2 (08:41→20:50)
[2018-06-04] MEDS: fentaNYL 10 mcg/mL Premix Drip 2,500 MCG/250 ML BAG IV.SIG PRN (12:52)
[2018-06-04] MEDS: Midazolam 50 MG/50 ML Inj 50 MG/50 ML BAG IV.CONT PRN ×2 (12:53→21:13)
--- NOTE | 2018-06-04 14:56 | P.PNCC ---
Subjective Subjective Remarks/Hospital Course: Mrs. Scott is a 67-year-old female with past medical history significant for morbid obesity, type 2 diabetes, hypertension, probable COPD who was brought in by the family yesterday night because of increasing weakness and lethargic, this was ongoing for last 2 weeks got worse over the last 2 days. Unable to get detailed history from patient due to lethargy. ER workup showed patient had a urinary tract infection and sepsis, also chest x-ray showed bilateral interstitial infiltrates, and LLL consolidation. There is also evidence of acute kidney injury with creatinine up to 2.59, BUN 89. Intermittently having tachyarrhythmia/atrial flutter with rate in in 130s. Patient was admitted to the hospital service. At the time of hospitalist (Dr. Mckeon) evaluation patient was very lethargic and ABG showed a pH of 7.08 and a PCO2 of 91, PO2 was 70 on 5 L nasal cannula. Patient was immediately placed on BiPAP. Approximately after 45 minutes ABG was repeat showed only marginal improvement pH of 7.12 and PCO2 of 84. Patient was emergently transferred to the ICU and critical care was consulted I evaluated the patient in the ICU. She is currently on BiPAP 15/. Patient is lethargic, even though arousable she falls right back to sleep. Airway protection was questionable. With severe hypercarbic respiratory failure complicated with sepsis, metabolic encephalopathy and acute kidney failure, decision was made to intubate the patient. I endotracheally intubate the patient in placed on the mechanical ventilation. Prior to and post intubation patient heart rate remained in 130s. Hypotensive postintubation, stat 2 L fluid boluses given. Also started on Levophed to keep map above 65. Patient had been placed on Rocephin and will discontinue this and start renally dosed cefepime, add azithromycin for atypical coverage. ID consulted for questionable scabies and sepsis with shock 06/02: Remains critically ill but stabilizing more. ABG shows correction of severe hypercapnia. FiO2 remains at 50%. Urine output adequate BUN remains elevated creatinine slightly improved. Received treatment with permethrin 06/02: Currently afebrile. Bradycardic on the ventilator. Will adjust sedation to midazolam and fentanyl drips. Tolerating tube feeds at 30 cc an hour. XRT of the right foot ordered. 06/03 No events overnight. Sedated with Versed and Fentanyl drips. Afebrile. Subjective 06/04: Remains on midazolam drip at 4 mg an hour and fentanyl drip at 100 mcg an hour. Tolerating tube feeds. Currently afebrile. Failed spontaneous breathing trials today. Objective Vital Signs / I&O: Vital Signs 06/03/18 16:00 06/03/18 16:16 06/03/18 20:00 Temperature 98.7 F 98.4 F Pulse Rate 58 L 59 L 45 L Respiratory Rate 14 14 16 Blood Pressure 131/80 136/87 Pulse Oximetry 94 L 94 L 95 06/03/18 21:55 06/03/18 22:00 06/04/18 00:00 Temperature 97.9 F Pulse Rate 80 54 L 45 L Respiratory Rate 14 16 Blood Pressure 126/74 Pulse Oximetry 95 95 06/04/18 00:43 06/04/18 02:00 06/04/18 04:00 Temperature 98.2 F Pulse Rate 53 L 44 L 49 L Respiratory Rate 14 16 Blood Pressure 123/71 Pulse Oximetry 95 06/04/18 04:22 06/04/18 06:00 06/04/18 08:00 Temperature 97.4 F L Pulse Rate 52 L 46 L 43 L Respiratory Rate 14 Blood Pressure 119/59 L Pulse Oximetry 95 06/04/18 08:35 06/04/18 10:00 06/04/18 11:19 Temperature Pulse Rate 56 L 110 H 110 H Respiratory Rate 14 14 Blood Pressure Pulse Oximetry 96 06/04/18 11:55 Temperature Pulse Rate Respiratory Rate 14 Blood Pressure Pulse Oximetry 94 L Intake & Output 06/03/18 06/04/18 06/04/18 18:59 06:59 18:59 Intake Total 1227 / 1227 2708 / 2708 250 / 250 Output Total 3800 / 3800 1050 / 1050 Balance -2573 / -2573 1658 / 1658 250 / 250 Weight 165 kg Intake: IV 200 / 200 1600 / 1600 250 / 250 Versed Inj 50 mg In 50 ml @ 2 0 / 0 50 / 50 MG/HR 2 mls/hr IV.CONT TITRATE PRN Rx#:[id number] 1/2 Normal Saline Inj 1,000 ML 1000 / 1000 @ 20 mls/hr IV.CONT .Q24H [facility] Rx#:[id number] Azithromycin Inj 500 MG In NS 250 / 250 Inj 250 ML @ 250 mls/hr IV.SIG Q24H [facility] Rx#:[id number] Maxipime Inj 2,000 MG In NS Inj 100 / 100 100 ML @ 200 mls/hr IV.SIG Q24H [facility] Rx#:[id number] Teflaro Inj 600 MG In NS Inj 200 / 200 100 ML @ 100 mls/hr IV.SIG Q12H [facility] Rx#:[id number] fentaNYL 10 mcg/mL Premix Drip 200 / 200 250 / 250 2,500 mcg In 250 ml @ 50 MCG/HR 5 mls/hr IV.SIG TITRATE PRN Rx #:[id number] Tube Feeding 627 / 627 558 / 558 Tube Irrigant 150 / 150 Water Bolus Amount 400 / 400 400 / 400 Output: Stool 100 / 100 Urine/Stool Mix 100 / 100 Urine Amount (Catheter) 3700 / 3700 950 / 950 Indwelling Urethral Catheter 3700 / 3700 950 / 950 Other: Date of Last Bowel Movement 06/02/18 06/04/18 06/04/18 Result Diagrams: 06/04/18 04:15 06/04/18 04:15 Other Results: Microbiology 05/30/18 22:21 Blood - Peripheral Aerobic Blood Culture - Final No growth in 5 days 05/30/18 22:21 Blood - Peripheral Anaerobic Blood Culture - Final No growth in 5 days 05/30/18 22:21 Blood - Peripheral Aerobic Blood Culture - Final No growth in 5 days 05/30/18 22:21 Blood - Peripheral Anaerobic Blood Culture - Final No growth in 5 days 05/31/18 14:50 Wound - Abdominal Gram Stain - Final 05/31/18 14:50 Wound - Abdominal Wound Culture - Final S. aureus MRSA 05/31/18 13:08 Urine - Catheterized Urine Streptococcus pneumoniae Antigen ( M - Final Presumptive negative for streptococcus pneumoniae antigen, suggesting no current or recent infection. Infection due to Streptococcus pneumoniae cannot be ruled out since the antigen present in the sample may be below the detection limit of the test. 05/31/18 13:08 Urine - Catheterized Urine Legionella Antigen - Final Presumptive negative for Legionella pneumophila serogroup 1 antigen in urine, suggesting no recent or recurrent infection. Infection due to Legionella cannot be ruled out since other serogroups and species may cause disease, antigen may not be present in urine in early infection, and the level of antigen present in the urine may be below the detection limit of the test. 05/30/18 22:56 Clean Catch Urine Urine Culture - Final 50-100,000 cfu/mL mixed leesa (probable contaminants ) Imaging: ITS Impressions Abdomen/Bladder Ultrasound 05/31/18 00:00 CONCLUSION: 1. No obstructive uropathy or other acute abnormality demonstrated. 2. Benign cyst of the right kidney. Abdomen/Pelvis CT 05/31/18 00:00 CONCLUSION: 1. Cholelithiasis. 2. Colonic diverticulosis without definitive evidence for diverticulitis. 3. Prominent uterus with hypodense 6 cm mass anteriorly likely reflecting a pedunculated fibroid. 4. Appendix is not visualized and potentially obscured by the uterine fibroid. 5. Large fat-containing left-sided anterior abdominal wall hernia. 6. Diffuse soft tissue edema in the inferior abdominal pannus. Head CT 05/31/18 00:00 CONCLUSION: 1. No acute intracranial abnormality. 2. Minimal paranasal sinus mucosal disease. Foot X-Ray 06/02/18 00:00 CONCLUSION: There is a destructive change at the distal aspect of the third distal phalanx at the tuft. Osteomyelitis needs be considered. 0.4 cm calcific density seen at the proximal lateral plantar aspect of the third digit. Chest X-Ray 06/04/18 00:00 CONCLUSION: No significant change Objective Remarks: GENERAL: 67-year-old female currently resting in bed orotracheally intubated SKIN: Cool and dry. Tinea cruris, axillary region and under the breasts. Excoriated pannus in back. Purple rash and excoriation bilateral lower extremity HEAD: Atraumatic. Normocephalic. No temporal wasting, or tenderness. EYES: Pupils equal, round and reactive to light. Extraocular movements are present EARS, NOSE AND THROAT: Edentulous. Mucous membranes dry. Orotracheally intubated NECK: Short and obese neck, supple, left IJ is clean dry and intact. CARDIOVASCULAR: Diminished heart sounds. Tachycardic. RR. No murmurs, rubs or gallops heard RESPIRATORY: Diminished breath sounds throughout due to body habitus. No wheezing ABDOMEN: Obese abdomen, soft, with multiple striae and excoriations EXTREMITIES: Positive pedal edema. Has mild mottling both feet. Purple rash and excoriation bilateral lower extremity. Necrotic appearing right third toe. NEUROLOGICAL: Intubated sedated with propofol. Spontaneously moves extremities to stimulation. Able to follow commands with upper extremities on sedation lightening Assessment and Plan - Assessment and Plan Plan: NEURO/Psych: Acute severe encephalopathy secondary to severe sepsis/hypercarbia Depression disorder NOS Chronic benzodiazepine use On midazolam drip at 4 mg an hour and fentanyl drip at 100 mcg an hour for sedation. Daily sedation vacation. Goal of RASS -2 CT brain on admission revealed no acute intracranial findings Acetaminophen 650 every 6 hours as needed fever Holding citalopram 20 mg daily/home medication for depression. Resume clinically indicated On lorazepam 0.5 mg at night as needed. Currently on 1 mg every 15 minutes for possible seizure activity? RESP: Acute respiratory failure/hypercarbic and hypoxemic Acute COPD exacerbation Probable community-acquired pneumonia [facility]/ /11/29/44 Ventilator bundle -Albuterol/ipratropium aerosols every 4 hours scheduled and albuterol aerosols every 2 hours as needed Continue IV methylprednisolone succinate 40 mg every 12 Spontaneous breathing trials as clinically indicated Acetazolamide 250 mg every 12 hours 2 dosages. CV: Atrial flutter with rapid ventricular response resolved Sinus bradycardia currently sinus tachycardia History of essential hypertension History of dyslipidemia -Currently on one half normal saline at 20 cc an hour with free water flushes 200 cc every 6 hours Off all vasopressors -Echo showed EF 50-55% -Hold home medications lisinopril 20 mg daily and hydrochlorothiazide 12.5 mg daily in light of recent hypotension Currently on pravastatin 80 mg daily, hospital substitution for simvastatin 40 mg daily which is her home medication GI: Hypoalbuminemia Cholelithiasis Sigmoid diverticulosis Abdominal wall hernia/left-sided Hypoalbuminemia -on tube feeds with vital 1.5 goal 65 cc an hour. Lansoprazole for GI prophylaxis Docusate sodium/senna 1 tablet twice daily for bowel regimen CT abdomen/pelvis revealed cholelithiasis, sigmoid colonic diverticulosis, and abdominal wall hernia Renal/[employer]/: Acute kidney injury GFR currently 37 6 cm uterine fibroid Right renal cyst -Monitor renal function, I/O's. avoid nephrotoxins Renal function is improving with Cr:1.15 from 1.43 -Renal ultrasound -right renal cyst otherwise no signs of obstruction. -Nephrology is following, continue IV hydration as above On Free water 200ml Q6 Diurese with Lasix 40mg x1 ID: UTI Wound cultures positive for MRSA -ID following, continue cefepime and ceftaroline per IDs recommendation. Azithromycin discontinued 06/03 Monitor or signs of infections (Fever, WBC) Right 3rd toe and other skin lesions/cellulitis on LLE likely sources of infection Xray foot: There is a destructive change at the distal aspect of the third distal phalanx at the tuft. 0.4 cm calcific density seen at the proximal lateral plantar aspect of the third digit. Podiatry is following, might need right third digit amputation per Podiatry Mupirocin to nares twice daily Pertinent cultures 05/31 -wound culture -MRSA 05/30 -blood cultures 2 -no growth 05/30 -UA -50- 100,000 -s/p Permethrin cream 5% for possible scabies HEME: Thrombocytopenia No indication for transfusion of blood products at this time -Monitor CBC, CMP, coags FEN/ENDO: Diabetes mellitus Hypernatremia Holding home medications Metformin 1000 mg twice daily and glipizide at 5 mg twice daily. TSH 0.97 Change Insulin detemir 18 units BID and SSI with Novolin R q. 6 hour Accu-Cheks MSK: Elevated BMI Necrotic appearing right third toe. Xray foot: There is a destructive change at the distal aspect of the third distal phalanx at the tuft. Podiatry is following, recommend amputation when clinically stable Wt loss encouraged PT evaluate and treat PROPH: -Bilateral lower extremity SCDs. Heparin subcu 5000 units every 8 hours. Lansoprazole 30 mg daily LINES: -Left IJ central line placed 05/31/18 Level 3 follow-up
[2018-06-04] MEDS: acetaZOLAMIDE Inj 250 MG in Sodium Chlor 0.9% Inj 50 ML IV.SIG SCH ×2 (17:51→21:09)
[2018-06-04] MEDS: Sodium Chloride 0.45 % Inj 1,000 ML IV.CONT SCH (20:14)
[2018-06-04] MEDS: Mupirocin 2% Nasal Oint Topical Syringe EACH NARE SCH (20:48)
[2018-06-04] MEDS ORDERED: Mupirocin 2% Nasal Oint Topical Syringe EACH NARE SCH (21:00)
[2018-06-04] MEDS: Hypromellose 0.3% Opth Gel 10 GM Bottle EACH EYE SCH (21:12)
[2018-06-04 23:58] LABS: ABG Base Excess 4.4 mmol/L (-2-2); ABG PCO2 52 mmHg (38-42); ABG PO2 111 mmHG (61-120)
[2018-06-05] MEDS: Insulin NovoLIN Regular Correctional Sugar Inj SQ SCH ×4 (00:57→17:50)
[2018-06-05] MEDS: Oral Hygiene Kit OROPHARYNG SCH ×4 (00:58→17:13)
[2018-06-05 04:09] LABS: Baso % (Auto) 0.1 % (0.0-2.0); Eos % (Auto) 0.2 % (0.0-4.0); Hemoglobin 13.5 gm/dL (11.6-15.3); Lymph # (Auto) 0.3 th/mm3 (1.0-4.8); Lymph % (Auto) 3.5 % (9.0-44.0); Mean Corpuscular Hemoglobin 27.4 pg (27.0-34.0); Mean Corpuscular Volume 89.6 fL (80.0-100.0); Mean Platelet Volume 8.3 fL (7.0-11.0); Mono # (Auto) 0.4 th/mm3 (0.0-0.9); Mono % (Auto) 4.6 % (0.0-8.0); Neut # (Auto) 7.2 th/mm3 (1.8-7.7); Neut % (Auto) 91.6 % (16.0-70.0); Platelet Count 118 th/mm3 (150-450); Red Blood Count 4.92 mil/mm3 (4.00-5.30); Red Cell Distribution Width 16.6 % (11.6-17.2); White Blood Count 7.9 th/mm3 (4.0-11.0)
[2018-06-05 04:13] LABS: Mean Corpuscular HGB Conc 30.5 % (32.0-36.0)
[2018-06-05 04:40] LABS: Calcium 7.9 mg/dL (8.5-10.1); Magnesium 2.2 mg/dL (1.5-2.5); Phosphorus 3.1 mg/dL (2.5-4.9); Potassium 5.2 meq/L (3.5-5.1)
[2018-06-05] MEDS: Heparin - SQ 10,000 UNITS/ML Vial SQ SCH ×3 (05:10→18:09)
--- NOTE | 2018-06-05 05:36 | XR ---
EXAM DATE: 06/05/2018 5:07 AM EDT AGE/SEX: 67 years / Female INDICATIONS: Follow up pneumonia. CLINICAL DATA: This is the patient's subsequent encounter. Patient reports that signs and symptoms h ave been present for 4 - 6 days and indicates a pain score of Nonresponsive. MEDICAL/SURGICAL HISTORY: None. None. [place] [facility] [place]. . FINDINGS: Endotracheal tube, nasogastric tube and left neck central line are stable and satisfactory position. There is persistent cardiomegaly and hazy bilateral pleural parenchymal opacity which is grossly unch anged. CONCLUSION: No significant change Electronically signed by: Tone Jeffery MD 06/05/2018 5:34 AM EDT
[2018-06-05] MEDS: Midazolam 50 MG/50 ML Inj 50 MG/50 ML BAG IV.CONT PRN ×2 (06:41→17:15)
[2018-06-05] MEDS: fentaNYL 10 mcg/mL Premix Drip 2,500 MCG/250 ML BAG IV.SIG PRN (08:30)
[2018-06-05] MEDS: Insulin Detemir Inj 1,000 UNIT/10 ML Vial SQ SCH ×3 (08:34→21:11)
[2018-06-05] MEDS: MethylPREDNISolone Sod Succinate Inj 40 MG/ML Vial IV.PUSH SCH ×2 (08:34→21:09)
[2018-06-05] MEDS: Mupirocin 2% Nasal Oint Topical Syringe EACH NARE SCH ×2 (08:36→21:11)
[2018-06-05] MEDS: Senna/Docusate Sodium 8.6/50 MG Tablet PO SCH ×2 (08:37→21:11)
--- NOTE | 2018-06-05 12:28 | P.PNCC ---
Subjective Subjective Remarks/Hospital Course: Mrs. Scott is a 67-year-old female with past medical history significant for morbid obesity, type 2 diabetes, hypertension, probable COPD who was brought in by the family yesterday night because of increasing weakness and lethargic, this was ongoing for last 2 weeks got worse over the last 2 days. Unable to get detailed history from patient due to lethargy. ER workup showed patient had a urinary tract infection and sepsis, also chest x-ray showed bilateral interstitial infiltrates, and LLL consolidation. There is also evidence of acute kidney injury with creatinine up to 2.59, BUN 89. Intermittently having tachyarrhythmia/atrial flutter with rate in in 130s. Patient was admitted to the hospital service. At the time of hospitalist (Dr. Mckeon) evaluation patient was very lethargic and ABG showed a pH of 7.08 and a PCO2 of 91, PO2 was 70 on 5 L nasal cannula. Patient was immediately placed on BiPAP. Approximately after 45 minutes ABG was repeat showed only marginal improvement pH of 7.12 and PCO2 of 84. Patient was emergently transferred to the ICU and critical care was consulted I evaluated the patient in the ICU. She is currently on BiPAP 15/. Patient is lethargic, even though arousable she falls right back to sleep. Airway protection was questionable. With severe hypercarbic respiratory failure complicated with sepsis, metabolic encephalopathy and acute kidney failure, decision was made to intubate the patient. I endotracheally intubate the patient in placed on the mechanical ventilation. Prior to and post intubation patient heart rate remained in 130s. Hypotensive postintubation, stat 2 L fluid boluses given. Also started on Levophed to keep map above 65. Patient had been placed on Rocephin and will discontinue this and start renally dosed cefepime, add azithromycin for atypical coverage. ID consulted for questionable scabies and sepsis with shock 06/02: Remains critically ill but stabilizing more. ABG shows correction of severe hypercapnia. FiO2 remains at 50%. Urine output adequate BUN remains elevated creatinine slightly improved. Received treatment with permethrin 06/02: Currently afebrile. Bradycardic on the ventilator. Will adjust sedation to midazolam and fentanyl drips. Tolerating tube feeds at 30 cc an hour. XRT of the right foot ordered. 06/03 No events overnight. Sedated with Versed and Fentanyl drips. Afebrile. 06/04: Remains on midazolam drip at 4 mg an hour and fentanyl drip at 100 mcg an hour. Tolerating tube feeds. Currently afebrile. Failed spontaneous breathing trials today. Subjective 06/05: Ventilator settings unchanged. Remains on midazolam drip at 5 mg an hour and fentanyl drip at 100 mcg an hour. Tolerating tube feeds. We will reattempt spontaneous breathing trials today. Objective Vital Signs / I&O: Vital Signs 06/04/18 14:00 06/04/18 15:34 06/04/18 16:00 Temperature 97.5 F L Pulse Rate 88 88 93 H Respiratory Rate 14 16 Blood Pressure 158/93 H Pulse Oximetry 94 L 06/04/18 18:00 06/04/18 20:00 06/04/18 20:35 Temperature 98.2 F Pulse Rate 88 85 75 Respiratory Rate 18 14 Blood Pressure 158/93 H Pulse Oximetry 96 95 06/04/18 22:00 06/04/18 22:55 06/05/18 00:00 Temperature 98.3 F Pulse Rate 75 78 Respiratory Rate 18 18 Blood Pressure 129/76 Pulse Oximetry 96 95 06/05/18 01:08 06/05/18 02:00 06/05/18 04:00 Temperature 98.1 F Pulse Rate 80 105 H Respiratory Rate 18 18 Blood Pressure 124/82 Pulse Oximetry 95 93 L 06/05/18 04:39 06/05/18 05:17 06/05/18 06:00 Temperature Pulse Rate 105 H 77 Respiratory Rate 18 18 Blood Pressure Pulse Oximetry 95 06/05/18 07:45 06/05/18 11:41 Temperature Pulse Rate 70 78 Respiratory Rate 21 18 Blood Pressure Pulse Oximetry 95 94 L Intake & Output 06/04/18 06/05/18 06/05/18 18:59 06:59 18:59 Intake Total 1337 / 1337 1141 / 1141 250 / 250 Output Total 2150 / 2150 1400 / 1400 Balance -813 / -813 -259 / -259 250 / 250 Weight 160.8 kg Intake: IV 300 / 300 200 / 200 250 / 250 Versed Inj 50 mg In 50 ml @ 2 100 / 100 MG/HR 2 mls/hr IV.CONT TITRATE PRN Rx#:[id number] Teflaro Inj 600 MG In NS Inj 100 / 100 100 ML @ 100 mls/hr IV.SIG Q12H [facility] Rx#:[id number] Diamox Inj 250 MG In NS Inj 50 50 / 50 ML @ 100 mls/hr IV.SIG Q12HR [facility] Rx#:[id number] fentaNYL 10 mcg/mL Premix Drip 250 / 250 250 / 250 2,500 mcg In 250 ml @ 50 MCG/HR 5 mls/hr IV.SIG TITRATE PRN Rx #:[id number] Oral 0 / 0 Tube Feeding 637 / 637 481 / 481 Tube Irrigant 60 / 60 Water Bolus Amount 400 / 400 400 / 400 Output: Urine 1650 / 1650 1300 / 1300 Stool 500 / 500 100 / 100 Other: Date of Last Bowel Movement 06/04/18 06/04/18 # Bowel Movements 0 # Incontinent Bowel Movements 0 Result Diagrams: 06/05/18 03:15 06/05/18 03:15 Other Results: Microbiology 05/30/18 22:21 Blood - Peripheral Aerobic Blood Culture - Final No growth in 5 days 05/30/18 22:21 Blood - Peripheral Anaerobic Blood Culture - Final No growth in 5 days 05/30/18 22:21 Blood - Peripheral Aerobic Blood Culture - Final No growth in 5 days 05/30/18 22:21 Blood - Peripheral Anaerobic Blood Culture - Final No growth in 5 days 05/31/18 14:50 Wound - Abdominal Gram Stain - Final 05/31/18 14:50 Wound - Abdominal Wound Culture - Final S. aureus MRSA 05/31/18 13:08 Urine - Catheterized Urine Streptococcus pneumoniae Antigen ( M - Final Presumptive negative for streptococcus pneumoniae antigen, suggesting no current or recent infection. Infection due to Streptococcus pneumoniae cannot be ruled out since the antigen present in the sample may be below the detection limit of the test. 05/31/18 13:08 Urine - Catheterized Urine Legionella Antigen - Final Presumptive negative for Legionella pneumophila serogroup 1 antigen in urine, suggesting no recent or recurrent infection. Infection due to Legionella cannot be ruled out since other serogroups and species may cause disease, antigen may not be present in urine in early infection, and the level of antigen present in the urine may be below the detection limit of the test. 05/30/18 22:56 Clean Catch Urine Urine Culture - Final 50-100,000 cfu/mL mixed leesa (probable contaminants ) Imaging: Chest X-Ray 05/30/18 22:09 CONCLUSION: Cardiomegaly. Diffuse increased interstitial markings likely related to edema. Increased density at the left base with silhouetting of the left hemidiaphragm secondary to left base atelectasis, consolidation and/or effusion. Abdomen/Bladder Ultrasound 05/31/18 00:00 CONCLUSION: 1. No obstructive uropathy or other acute abnormality demonstrated. 2. Benign cyst of the right kidney. Abdomen/Pelvis CT 05/31/18 00:00 CONCLUSION: 1. Cholelithiasis. 2. Colonic diverticulosis without definitive evidence for diverticulitis. 3. Prominent uterus with hypodense 6 cm mass anteriorly likely reflecting a pedunculated fibroid. 4. Appendix is not visualized and potentially obscured by the uterine fibroid. 5. Large fat-containing left-sided anterior abdominal wall hernia. 6. Diffuse soft tissue edema in the inferior abdominal pannus. Head CT 05/31/18 00:00 CONCLUSION: 1. No acute intracranial abnormality. 2. Minimal paranasal sinus mucosal disease. Chest X-Ray 05/31/18 13:55 CONCLUSION: 1. Cardiomegaly with resolving interstitial edema and improving aeration in the left lung base. 2. Endotracheal tube appropriately positioned above the brittnee. Nasogastric tube is curled in the gastric fundus and the left IJ central venous catheter is identified. At the junction of the left and right brachiocephalic vein. Foot X-Ray 06/02/18 00:00 CONCLUSION: There is a destructive change at the distal aspect of the third distal phalanx at the tuft. Osteomyelitis needs be considered. 0.4 cm calcific density seen at the proximal lateral plantar aspect of the third digit. Chest X-Ray 06/02/18 06:00 CONCLUSION: 1. Stable tubes and lines. 2. Cardiomegaly with positive fluid balance. 3. Stable left and worsening right lower lung zone airspace disease. Chest X-Ray 06/03/18 06:00 CONCLUSION: Cardiomegaly with bilateral airspace disease greater in the right lung, unchanged. Chest X-Ray 06/04/18 00:00 CONCLUSION: No significant change Chest X-Ray 06/05/18 06:00 CONCLUSION: No significant change Objective Remarks: GENERAL: 67-year-old female currently resting in bed orotracheally intubated SKIN: Cool and dry. Tinea cruris, axillary region and under the breasts. Excoriated pannus in back. Purple rash and excoriation bilateral lower extremity HEAD: Atraumatic. Normocephalic. No temporal wasting, or tenderness. EYES: Pupils equal, round and reactive to light. Extraocular movements are present EARS, NOSE AND THROAT: Edentulous. Mucous membranes dry. Orotracheally intubated NECK: Short and obese neck, supple, left IJ is clean dry and intact. CARDIOVASCULAR: Diminished heart sounds. Tachycardic. RR. No murmurs, rubs or gallops heard RESPIRATORY: Diminished breath sounds throughout due to body habitus. No wheezing ABDOMEN: Obese abdomen, soft, with multiple striae and excoriations EXTREMITIES: Positive pedal edema. Has mild mottling both feet. Purple rash and excoriation bilateral lower extremity. Necrotic appearing right third toe. NEUROLOGICAL: Cranial nerves appear to be grossly intact. Positive gag and cough. Spontaneously moves extremities to stimulation. Able to follow commands with upper extremities today and nods head. Assessment and Plan - Assessment and Plan Plan: NEURO/Psych: Acute severe encephalopathy secondary to severe sepsis/hypercarbia Depression disorder NOS Chronic benzodiazepine use On midazolam drip at 4 mg an hour and fentanyl drip at 100 mcg an hour for sedation. Daily sedation vacation. Goal of RASS -2 CT brain on admission revealed no acute intracranial findings Acetaminophen 650 every 6 hours as needed fever Holding citalopram 20 mg daily/home medication for depression. Resume clinically indicated On lorazepam 0.5 mg at night as needed. Currently on 1 mg every 15 minutes for possible seizure activity? RESP: Acute respiratory failure/hypercarbic and hypoxemic Acute COPD exacerbation Probable community-acquired pneumonia [facility]/AC 14/11/29/44 Ventilator bundle -Albuterol/ipratropium aerosols every 4 hours scheduled and albuterol aerosols every 2 hours as needed Continue IV methylprednisolone succinate 40 mg every 12 Spontaneous breathing trials as clinically indicated Acetazolamide 250 mg every 12 hours 2 dosages. CV: Atrial flutter with rapid ventricular response resolved Sinus bradycardia currently sinus tachycardia History of essential hypertension History of dyslipidemia -Currently on one half normal saline at 20 cc an hour with free water flushes 200 cc every 6 hours Off all vasopressors -Echo showed EF 50-55% -Hold home medications lisinopril 20 mg daily and hydrochlorothiazide 12.5 mg daily in light of recent hypotension Currently on pravastatin 80 mg daily, hospital substitution for simvastatin 40 mg daily which is her home medication GI: Hypoalbuminemia Cholelithiasis Sigmoid diverticulosis Abdominal wall hernia/left-sided Hypoalbuminemia -on tube feeds with vital 1.5 goal 65 cc an hour. 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 avoid nephrotoxins Renal function is improving with Cr:1.15 from 1.43 -Renal ultrasound -right renal cyst otherwise no signs of obstruction. -Nephrology is following, continue IV hydration as above On Free water 200ml Q6 Diurese with Lasix 40mg x1 ID: UTI Wound cultures positive for MRSA -ID following, continue cefepime and ceftaroline per IDs recommendation. Azithromycin discontinued 06/03 Monitor or signs of infections (Fever, WBC) Right 3rd toe and other skin lesions/cellulitis on LLE likely sources of infection Xray foot: There is a destructive change at the distal aspect of the third distal phalanx at the tuft. 0.4 cm calcific density seen at the proximal lateral plantar aspect of the third digit. Podiatry is following, might need right third digit amputation per Podiatry Mupirocin to nares twice daily Pertinent cultures 05/31 -wound culture -MRSA 05/30 -blood cultures 2 -no growth 05/30 -UA -50- 100,000 -s/p Permethrin cream 5% for possible scabies HEME: Thrombocytopenia No indication for transfusion of blood products at this time -Monitor CBC, CMP, coags FEN/ENDO: Diabetes mellitus Hyperkalemia Holding home medications Metformin 1000 mg twice daily and glipizide at 5 mg twice daily. TSH 0.97 Change Insulin detemir 24 units BID and SSI with Novolin R q. 6 hour Accu-Cheks D50/insulin/bicarbonate 1 now. Recheck at 1700 hrs. for hyperkalemia MSK: Elevated BMI Necrotic appearing right third toe. Xray foot: There is a destructive change at the distal aspect of the third distal phalanx at the tuft. Podiatry is following, recommend amputation when clinically stable Wt loss encouraged PT evaluate and treat PROPH: -Bilateral lower extremity SCDs. Heparin subcu 5000 units every 8 hours. Lansoprazole 30 mg daily LINES: -Left IJ central line placed 05/31/18 Level 3 follow-up
[2018-06-05] MEDS ORDERED: Dextrose 50% in Water 50 ML Vial IV.PUSH ONE (12:32)
[2018-06-05] MEDS: Chlorhexidine 0.12% Oral Kit 15 ML UDC OROPHARYNG SCH ×2 (14:48→21:09)
[2018-06-05] MEDS: Hypromellose 0.3% Opth Gel 10 GM Bottle EACH EYE SCH (21:09)
[2018-06-06] MEDS: Insulin NovoLIN Regular Correctional Sugar Inj SQ SCH ×5 (01:59→23:58)
[2018-06-06] MEDS: Oral Hygiene Kit OROPHARYNG SCH ×4 (02:00→18:22)
[2018-06-06] MEDS: Heparin - SQ 10,000 UNITS/ML Vial SQ SCH ×3 (02:53→18:23)
[2018-06-06] MEDS: Midazolam 50 MG/50 ML Inj 50 MG/50 ML BAG IV.CONT PRN ×2 (02:53→14:04)
--- NOTE | 2018-06-06 05:02 | XR ---
EXAM DATE: 06/06/2018 4:51 AM EDT AGE/SEX: 67 years / Female INDICATIONS: Shortness of breath. CLINICAL DATA: This is the patient's subsequent encounter. Patient reports that signs and symptoms h ave been present for 1 week and indicates a pain score of Nonresponsive. MEDICAL/SURGICAL HISTORY: . Hypertension. Depression. Diabetes. Hypertriglyceridemia None. COMPARISON: [facility], CHEST 1V SINGLE AP, 06/05/2018. . FINDINGS: Endotracheal tube tip just below the thoracic inlet. NG tip: Stomach. Bilateral mostly basilar airspa ce disease and pleural effusions probably not significantly changed from June 05. Left central line i n superior vena cava. CONCLUSION: Support apparatus unchanged. Bilateral mostly basilar airspace disease and cardiomegaly with effusion s also not significantly changed considering differences in technique. Electronically signed by: Sloan Adler MD 06/06/2018 5:00 AM EDT
[2018-06-06 05:51] LABS: Baso % (Auto) 0.1 % (0.0-2.0); Eos % (Auto) 0.2 % (0.0-4.0); Lymph # (Auto) 0.3 th/mm3 (1.0-4.8); Lymph % (Auto) 3.6 % (9.0-44.0); Mean Corpuscular HGB Conc 31.1 % (32.0-36.0); Mean Platelet Volume 8.4 fL (7.0-11.0); Mono # (Auto) 0.4 th/mm3 (0.0-0.9); Mono % (Auto) 5.4 % (0.0-8.0); Neut # (Auto) 7.4 th/mm3 (1.8-7.7); Neut % (Auto) 90.7 % (16.0-70.0); Platelet Count 118 th/mm3 (150-450); Red Blood Count 5.17 mil/mm3 (4.00-5.30); Red Cell Distribution Width 16.3 % (11.6-17.2); White Blood Count 8.1 th/mm3 (4.0-11.0)
[2018-06-06 06:10] LABS: Albumin 2.3 g/dL (3.4-5.0); Anion Gap 10 meq/L (5-15); Aspartate Aminotransferase 16 U/L (15-37); Blood Urea Nitrogen 39 mg/dL (7-18); Calcium 8.2 mg/dL (8.5-10.1); Chloride 102 meq/L (98-107); Glomerular Filtration Rate 62 mL/min (>89); Glucose,Random 218 mg/dL (74-106); Potassium 4.8 meq/L (3.5-5.1); Sodium 139 meq/L (136-145)
[2018-06-06 06:14] LABS: Alanine Aminotransferase 25 U/L (10-53); Alkaline Phosphatase 53 U/L (45-117); Phosphorus 1.9 mg/dL (2.5-4.9); Total Protein 5.5 g/dL (6.4-8.2)
--- NOTE | 2018-06-06 08:09 | MG ---
cc: Sherice Leos MD DATE: 06/03/18. EEG NUMBER [id number] REFERRING PHYSICIAN: Dr. Rouse HISTORY: With photic stimulation, no sedation. CT negative. Increasing weakness and lethargic for the last couple of weeks, history of depression, hypertension, obesity, hyperlipidemia. MEDICATIONS: Azithromycin, Cefepime, Celexa Heparin. Solu-Medrol. DESCRIPTION OF RECORD: The patient exhibits some background slowing predominantly of 2-3 Hz at times, some ocular movements noted. EKG is artifactual. Noted that she is keeping her eyes closed, some questionable slow waves seen various epoch. Photic stimulation does elicit a mild driving response. Overall, EEG is moderately slow. Quite a bit of muscle artifact. May be some spike slow waves seen versus eye movement artifact. Would recommend possibly a repeat study. If indicated, a trial of antiepileptics should also be considered. Recommend a repeat study. Clinical correlation. Sherice Leos MD DF/ , 09:19 PM , 09:34 PM
[2018-06-06] MEDS: Senna/Docusate Sodium 8.6/50 MG Tablet PO SCH ×2 (08:11→21:37)
[2018-06-06] MEDS: Mupirocin 2% Nasal Oint Topical Syringe EACH NARE SCH ×2 (08:11→21:36)
[2018-06-06] MEDS: Insulin Detemir Inj 1,000 UNIT/10 ML Vial SQ SCH ×2 (08:11→21:37)
[2018-06-06] MEDS: Chlorhexidine 0.12% Oral Kit 15 ML UDC OROPHARYNG SCH ×2 (08:12→21:36)
[2018-06-06] MEDS: MethylPREDNISolone Sod Succinate Inj 40 MG/ML Vial IV.PUSH SCH (08:12)
[2018-06-06] MEDS: fentaNYL 10 mcg/mL Premix Drip 2,500 MCG/250 ML BAG IV.SIG PRN (08:13)
--- NOTE | 2018-06-06 10:02 | P.PNCC ---
Subjective Subjective Remarks/Hospital Course: Mrs. Scott is a 67-year-old female with past medical history significant for morbid obesity, type 2 diabetes, hypertension, probable COPD who was brought in by the family yesterday night because of increasing weakness and lethargic, this was ongoing for last 2 weeks got worse over the last 2 days. Unable to get detailed history from patient due to lethargy. ER workup showed patient had a urinary tract infection and sepsis, also chest x-ray showed bilateral interstitial infiltrates, and LLL consolidation. There is also evidence of acute kidney injury with creatinine up to 2.59, BUN 89. Intermittently having tachyarrhythmia/atrial flutter with rate in in 130s. Patient was admitted to the hospital service. At the time of hospitalist (Dr. Mckeon) evaluation patient was very lethargic and ABG showed a pH of 7.08 and a PCO2 of 91, PO2 was 70 on 5 L nasal cannula. Patient was immediately placed on BiPAP. Approximately after 45 minutes ABG was repeat showed only marginal improvement pH of 7.12 and PCO2 of 84. Patient was emergently transferred to the ICU and critical care was consulted I evaluated the patient in the ICU. She is currently on BiPAP 15/. Patient is lethargic, even though arousable she falls right back to sleep. Airway protection was questionable. With severe hypercarbic respiratory failure complicated with sepsis, metabolic encephalopathy and acute kidney failure, decision was made to intubate the patient. I endotracheally intubate the patient in placed on the mechanical ventilation. Prior to and post intubation patient heart rate remained in 130s. Hypotensive postintubation, stat 2 L fluid boluses given. Also started on Levophed to keep map above 65. Patient had been placed on Rocephin and will discontinue this and start renally dosed cefepime, add azithromycin for atypical coverage. ID consulted for questionable scabies and sepsis with shock 06/02: Remains critically ill but stabilizing more. ABG shows correction of severe hypercapnia. FiO2 remains at 50%. Urine output adequate BUN remains elevated creatinine slightly improved. Received treatment with permethrin 06/02: Currently afebrile. Bradycardic on the ventilator. Will adjust sedation to midazolam and fentanyl drips. Tolerating tube feeds at 30 cc an hour. XRT of the right foot ordered. 06/03 No events overnight. Sedated with Versed and Fentanyl drips. Afebrile. 06/04: Remains on midazolam drip at 4 mg an hour and fentanyl drip at 100 mcg an hour. Tolerating tube feeds. Currently afebrile. Failed spontaneous breathing trials today. Subjective 06/05: Ventilator settings unchanged. Remains on midazolam drip at 5 mg an hour and fentanyl drip at 100 mcg an hour. Tolerating tube feeds. We will reattempt spontaneous breathing trials today. 06/06 Patient is sedated with Fentanyl and versed drips and intubated. Afebrile. Objective Vital Signs / I&O: Vital Signs 06/05/18 10:00 06/05/18 10:03 06/05/18 11:00 Temperature Pulse Rate 155 H 92 H 160 H Respiratory Rate 24 13 42 H Blood Pressure 123/90 127/94 H Pulse Oximetry 90 L 96 96 06/05/18 11:41 06/05/18 12:00 06/05/18 13:00 Temperature 98.2 F Pulse Rate 78 72 86 Respiratory Rate 18 18 18 Blood Pressure 110/70 153/96 H Pulse Oximetry 94 L 93 L 93 L 06/05/18 14:00 06/05/18 15:00 06/05/18 16:00 Temperature Pulse Rate 72 72 85 Respiratory Rate 18 18 18 Blood Pressure 134/89 140/93 H 136/86 Pulse Oximetry 93 L 93 L 93 L 06/05/18 16:24 06/05/18 17:00 06/05/18 18:00 Temperature Pulse Rate 78 75 85 Respiratory Rate 18 18 18 Blood Pressure 124/73 Pulse Oximetry 92 L 91 L 91 L 06/05/18 18:01 06/05/18 18:02 06/05/18 18:13 Temperature Pulse Rate 77 76 86 Respiratory Rate 18 18 18 Blood Pressure 150/111 H 156/105 H 139/102 H Pulse Oximetry 92 L 92 L 90 L 06/05/18 20:00 06/05/18 20:40 06/05/18 22:00 Temperature 97.9 F Pulse Rate 75 82 79 Respiratory Rate 18 18 Blood Pressure 125/80 Pulse Oximetry 93 L 94 L 06/06/18 00:00 06/06/18 00:07 06/06/18 02:00 Temperature 98 F Pulse Rate 74 83 94 H Respiratory Rate 18 18 Blood Pressure 126/83 Pulse Oximetry 91 L 92 L 06/06/18 04:00 06/06/18 04:19 06/06/18 06:00 Temperature 97.8 F Pulse Rate 95 H 89 80 Respiratory Rate 18 18 Blood Pressure 129/87 Pulse Oximetry 93 L 94 L 06/06/18 08:00 Temperature Pulse Rate 74 Respiratory Rate 18 Blood Pressure Pulse Oximetry Intake & Output 06/05/18 06/06/18 06/06/18 18:59 06:59 18:59 Intake Total 947 / 947 990 / 990 250 / 250 Output Total 1700 / 1700 1500 / 1500 Balance -753 / -753 -510 / -510 250 / 250 Weight 159.2 kg Intake: IV 350 / 350 50 / 50 250 / 250 Versed Inj 50 mg In 50 ml @ 2 0 / 0 50 / 50 MG/HR 2 mls/hr IV.CONT TITRATE PRN Rx#:[id number] Teflaro Inj 600 MG In NS Inj 100 / 100 100 ML @ 100 mls/hr IV.SIG Q12H BECKY Rx#:[id number] fentaNYL 10 mcg/mL Premix Drip 250 / 250 250 / 250 2,500 mcg In 250 ml @ 50 MCG/HR 5 mls/hr IV.SIG TITRATE PRN Rx #:[id number] Oral 0 / 0 Tube Feeding 547 / 547 490 / 490 Tube Irrigant 50 / 50 50 / 50 Water Bolus Amount 400 / 400 Output: Urine 1300 / 1300 Stool 100 / 100 Urine/Stool Mix 100 / 100 Urine Amount (Catheter) 1700 / 1700 Indwelling Urethral Catheter 1700 / 1700 Other: Date of Last Bowel Movement 06/04/18 06/04/18 # Bowel Movements 0 # Incontinent Bowel Movements 0 Result Diagrams: 06/06/18 03:00 06/06/18 03:00 Other Results: Laboratory Results - last 12 hr 06/05/18 06/06/18 06/06/18 21:00 00:28 03:00 WBC 8.1 RBC 5.17 Hgb 14.0 Hct 45.0 MCV 87.0 MCH 27.0 MCHC 31.1 L RDW 16.3 Plt Count 118 L MPV 8.4 Neut % (Auto) 90.7 H Lymph % (Auto) 3.6 L Gates % (Auto) 5.4 Eos % (Auto) 0.2 Baso % (Auto) 0.1 Neut # (Auto) 7.4 Lymph # (Auto) 0.3 L Gates # (Auto) 0.4 Eos # (Auto) 0.0 Baso # (Auto) 0.0 WBC Differential . Differential Comment Auto diff final Sodium Potassium 4.5 Chloride Carbon Dioxide Anion Gap BUN Creatinine Estimated GFR POC Glucose 179 H Random Glucose Calcium Phosphorus Magnesium Total Bilirubin AST ALT Alkaline Phosphatase Total Protein Albumin 06/06/18 06/06/18 06/06/18 03:00 06:15 08:10 WBC RBC Hgb Hct MCV MCH MCHC RDW Plt Count MPV Neut % (Auto) Lymph % (Auto) Gates % (Auto) Eos % (Auto) Baso % (Auto) Neut # (Auto) Lymph # (Auto) Gates # (Auto) Eos # (Auto) Baso # (Auto) WBC Differential Differential Comment Sodium 139 Potassium 4.8 Chloride 102 Carbon Dioxide 27.0 Anion Gap 10 BUN 39 H Creatinine 0.90 Estimated GFR 62 L POC Glucose 221 H 224 H Random Glucose 218 H Calcium 8.2 L Phosphorus 1.9 L D Magnesium 2.0 Total Bilirubin 0.5 AST 16 ALT 25 Alkaline Phosphatase 53 Total Protein 5.5 L Albumin 2.3 L Imaging: Abdomen/Bladder Ultrasound 05/31/18 00:00 CONCLUSION: 1. No obstructive uropathy or other acute abnormality demonstrated. 2. Benign cyst of the right kidney. Abdomen/Pelvis CT 05/31/18 00:00 CONCLUSION: 1. Cholelithiasis. 2. Colonic diverticulosis without definitive evidence for diverticulitis. 3. Prominent uterus with hypodense 6 cm mass anteriorly likely reflecting a pedunculated fibroid. 4. Appendix is not visualized and potentially obscured by the uterine fibroid. 5. Large fat-containing left-sided anterior abdominal wall hernia. 6. Diffuse soft tissue edema in the inferior abdominal pannus. Head CT 05/31/18 00:00 CONCLUSION: 1. No acute intracranial abnormality. 2. Minimal paranasal sinus mucosal disease. Foot X-Ray 06/02/18 00:00 CONCLUSION: There is a destructive change at the distal aspect of the third distal phalanx at the tuft. Osteomyelitis needs be considered. 0.4 cm calcific density seen at the proximal lateral plantar aspect of the third digit. Chest X-Ray 06/06/18 06:00 CONCLUSION: Support apparatus unchanged. Bilateral mostly basilar airspace disease and cardiomegaly with effusions also not significantly changed considering differences in technique. Objective Remarks: GENERAL: 67-year-old female currently resting in bed orotracheally intubated SKIN: Cool and dry. Tinea cruris, axillary region and under the breasts. Excoriated pannus in back. Purple rash and excoriation bilateral lower extremity HEAD: Atraumatic. Normocephalic. No temporal wasting, or tenderness. EYES: Pupils equal, round and reactive to light. Extraocular movements are present EARS, NOSE AND THROAT: Edentulous. Mucous membranes dry. Orotracheally intubated NECK: Short and obese neck, supple, left IJ is clean dry and intact. CARDIOVASCULAR: Diminished heart sounds. Tachycardic. RR. No murmurs, rubs or gallops heard RESPIRATORY: Diminished breath sounds throughout due to body habitus. No wheezing ABDOMEN: Obese abdomen, soft, with multiple striae and excoriations EXTREMITIES: Positive pedal edema. Has mild mottling both feet. Purple rash and excoriation bilateral lower extremity. Necrotic appearing right third toe. NEUROLOGICAL: Cranial nerves appear to be grossly intact. Positive gag and cough. Spontaneously moves extremities to stimulation. Able to follow commands with upper extremities today and nods head. Assessment and Plan - Assessment and Plan Plan: NEURO/Psych: Acute severe encephalopathy secondary to severe sepsis/hypercarbia Depression disorder NOS Chronic benzodiazepine use On midazolam drip at 4 mg an hour and fentanyl drip at 100 mcg an hour for sedation. Daily sedation vacation. Goal of RASS -2 CT brain on admission revealed no acute intracranial findings Check EEG, neuro eval. Acetaminophen 650 every 6 hours as needed fever Holding citalopram 20 mg daily/home medication for depression. Resume clinically indicated On lorazepam 0.5 mg at night as needed. Currently on 1 mg every 15 minutes for possible seizure activity? RESP: Acute respiratory failure/hypercarbic and hypoxemic Acute COPD exacerbation Probable community-acquired pneumonia On PC/AC RR 18, IP: 32, IT:1.0, PEEP:8, FIO2 55%, decrease FIO2 45% as kallie. Ventilator bundle -Albuterol/ipratropium aerosols every 4 hours scheduled and albuterol aerosols every 2 hours as needed Continue IV methylprednisolone succinate 40 mg every 12 Spontaneous breathing trials as clinically indicated CV: Atrial flutter with rapid ventricular response resolved Sinus bradycardia currently sinus tachycardia History of essential hypertension History of dyslipidemia Off all vasopressors -Echo showed EF 50-55% -Monitor HR and BP keep MAP>65mmHg Currently on pravastatin 80 mg daily, hospital substitution for simvastatin 40 mg daily which is her home medication GI: Hypoalbuminemia Cholelithiasis Sigmoid diverticulosis Abdominal wall hernia/left-sided Hypoalbuminemia -on tube feeds with vital 1.5 goal 65 cc an hour. 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 avoid nephrotoxins -Renal ultrasound -right renal cyst otherwise no signs of obstruction. -Nephrology is following, Dr. Narvaez On 1/2NS@20ml/hr, free water 200ml Q6 ID: UTI Wound cultures positive for MRSA -ID following, continue cefepime and ceftaroline per IDs recommendation. Azithromycin discontinued 06/03 Monitor or signs of infections (Fever, WBC) Right 3rd toe and other skin lesions/cellulitis on LLE likely sources of infection Xray foot: There is a destructive change at the distal aspect of the third distal phalanx at the tuft. 0.4 cm calcific density seen at the proximal lateral plantar aspect of the third digit. Podiatry is following, might need right third digit amputation per Podiatry Mupirocin to nares twice daily Pertinent cultures 05/31 -wound culture -MRSA 05/30 -blood cultures 2 -no growth 05/30 -UA -50- 100,000 -s/p Permethrin cream 5% for possible scabies HEME: Thrombocytopenia No indication for transfusion of blood products at this time -Monitor CBC, CMP, coags FEN/ENDO: Diabetes mellitus Hyperkalemia Holding home medications Metformin 1000 mg twice daily and glipizide at 5 mg twice daily. TSH 0.97 Insulin detemir 24 units BID and SSI with Novolin R q. 6 hour Accu-Cheks MSK: Elevated BMI Necrotic appearing right third toe. Xray foot: There is a destructive change at the distal aspect of the third distal phalanx at the tuft. Podiatry is following, recommend amputation when clinically stable Wt loss encouraged PT evaluate and treat PROPH: -Bilateral lower extremity SCDs. Heparin subcu 5000 units every 8 hours. Lansoprazole 30 mg daily LINES: -Left IJ central line placed 05/31/18 Palliative care is following Level 3 follow-up
--- NOTE | 2018-06-06 11:38 | P.PNPAL ---
Reason for Visit Reason for visit: a. To assist with evaluation and management of symptoms including: pain, dyspnea, weakness b. To assist medical decision maker(s) with: better understanding of current medical conditions; weighing benefits/burdens of medical treatment options; making medical treatment decisions. Subjective Subjective/Interval History: Dual visit with FERNANDO Pennington. Pt resting in bed, sedated on vent, in restraints. Versed drip, 4mg/hr. Pt failed breathing trials 06/04 and breathing trials could not be attempted today-- RN describes when sedation weaned for pt's face turned purple, became agitated. Peep 8, FiO2 45%, sats 96. Serial CXRs unchanged/no improvement. Pt did not show any nonverbal signs of pain. On fentanyl drip. Remains bedbound, unable to actively participate in therapy. PT is following. Family/Friend Interactions: Conducted teleconference with 4 of 5 siblings. In attendance were SARAI Kulkarni Dora/Missy, and Sarwat. Discussed the following: -Palliative care role, purpose, approach -brief review medical, psychosocial, spiritual history -family understanding of the current medical problems -family understanding of prognosis -Patients goals of care as best understood from conversations and values - They acknowledge that their mother "was trying to take herself out without pulling the trigger" -Current medical treatment options and benefits/burdens of those options -Legal decision makers- 4 of 5 children contacted, they appear to be working together. - CODE STATUS-review benefits/burdens and limitations of CPR, intubation, and mechanical ventilation - all 4 children present opted for alternate code, intubation only -Questions answered to the best of my ability - Palliative care contact information provided The children are making an effort to work together. They appoint Shad local emergency spokesperson. They acknowledge that she was knowingly "killing herself" and seem to all be in agreement that "she didn't want to suffer like her [their father]." At this point they did not indicate that they would definitely want trach & PEG. Objective Vital Signs: Vital Signs 06/05/18 11:41 06/05/18 12:00 06/05/18 13:00 Temperature 98.2 F Pulse Rate 78 72 86 Respiratory Rate 18 18 18 Blood Pressure 110/70 153/96 H Pulse Oximetry 94 L 93 L 93 L 06/05/18 14:00 06/05/18 15:00 06/05/18 16:00 Temperature Pulse Rate 72 72 85 Respiratory Rate 18 18 18 Blood Pressure 134/89 140/93 H 136/86 Pulse Oximetry 93 L 93 L 93 L 06/05/18 16:24 06/05/18 17:00 06/05/18 18:00 Temperature Pulse Rate 78 75 85 Respiratory Rate 18 18 18 Blood Pressure 124/73 Pulse Oximetry 92 L 91 L 91 L 06/05/18 18:01 06/05/18 18:02 06/05/18 18:13 Temperature Pulse Rate 77 76 86 Respiratory Rate 18 18 18 Blood Pressure 150/111 H 156/105 H 139/102 H Pulse Oximetry 92 L 92 L 90 L 06/05/18 19:00 06/05/18 20:00 06/05/18 20:40 Temperature 97.9 F Pulse Rate 76 75 82 Respiratory Rate 18 18 18 Blood Pressure 125/80 Pulse Oximetry 91 L 93 L 94 L 06/05/18 21:00 06/05/18 21:35 06/05/18 22:00 Temperature Pulse Rate 84 81 79 Respiratory Rate 18 18 18 Blood Pressure 131/90 125/80 Pulse Oximetry 93 L 91 L 92 L 06/05/18 23:00 06/05/18 23:01 06/06/18 00:00 Temperature 98 F Pulse Rate 91 H 83 74 Respiratory Rate 18 18 18 Blood Pressure 155/81 H 126/83 Pulse Oximetry 91 L 91 L 91 L 06/06/18 00:07 06/06/18 01:00 06/06/18 01:01 Temperature Pulse Rate 83 89 99 H Respiratory Rate 18 18 18 Blood Pressure 163/110 H Pulse Oximetry 92 L 93 L 93 L 06/06/18 01:02 06/06/18 02:00 06/06/18 03:00 Temperature Pulse Rate 88 94 H 105 H Respiratory Rate 8 L 18 18 Blood Pressure 153/98 H 142/104 H Pulse Oximetry 94 L 94 L 94 L 06/06/18 03:01 06/06/18 04:00 06/06/18 04:19 Temperature 97.8 F Pulse Rate 98 H 95 H 89 Respiratory Rate 18 0 L 18 Blood Pressure 145/68 H 129/87 Pulse Oximetry 95 93 L 94 L 06/06/18 05:00 06/06/18 06:00 06/06/18 07:00 Temperature Pulse Rate 86 80 76 Respiratory Rate 0 L 0 L Blood Pressure 124/81 119/86 131/89 Pulse Oximetry 95 95 96 06/06/18 08:00 06/06/18 08:01 06/06/18 09:00 Temperature 97.7 F Pulse Rate 77 75 79 Respiratory Rate 18 Blood Pressure 133/91 H 133/91 H 121/82 Pulse Oximetry 96 96 96 06/06/18 10:00 06/06/18 10:01 Temperature Pulse Rate 76 76 Respiratory Rate Blood Pressure 118/78 Pulse Oximetry 96 96 Intake & Output 06/05/18 06/06/18 06/06/18 18:59 06:59 18:59 Intake Total 947 / 947 990 / 990 250 / 250 Output Total 1700 / 1700 1500 / 1500 Balance -753 / -753 -510 / -510 250 / 250 Weight 159.2 kg Intake: IV 350 / 350 50 / 50 250 / 250 Versed Inj 50 mg In 50 ml @ 2 0 / 0 50 / 50 MG/HR 2 mls/hr IV.CONT TITRATE PRN Rx#:[id number] Teflaro Inj 600 MG In NS Inj 100 / 100 100 ML @ 100 mls/hr IV.SIG Q12H BECKY Rx#:[id number] fentaNYL 10 mcg/mL Premix Drip 250 / 250 250 / 250 2,500 mcg In 250 ml @ 50 MCG/HR 5 mls/hr IV.SIG TITRATE PRN Rx #:[id number] Oral 0 / 0 Tube Feeding 547 / 547 490 / 490 Tube Irrigant 50 / 50 50 / 50 Water Bolus Amount 400 / 400 Output: Urine 1300 / 1300 Stool 100 / 100 Urine/Stool Mix 100 / 100 Urine Amount (Catheter) 1700 / 1700 Indwelling Urethral Catheter 1700 / 1700 Other: Date of Last Bowel Movement 06/04/18 06/04/18 06/04/18 # Bowel Movements 0 # Incontinent Bowel Movements 0 Physical Exam: CONSTITUTIONAL/GENERAL: morbidly obese female, sedated on vent TUBES/LINES/DRAINS: IJ, rectal bag, gutiérrez, ETtube SKIN: rash left axilla, marked striations left panniculus. 3-4 mm ulceration left pannus. right third toe dusky with nail changes HEAD: Atraumatic. Normocephalic. EYES: pupils constricted. No scleral icterus. Fundi not examined. ENT: Nose without bleeding or purulent drainage. Throat exam limited by ET tube NECK: Trachea midline. Supple, nontender. CARDIOVASCULAR: RRR without murmurs, gallops, or rubs. No JVD. RESPIRATORY/CHEST: course breath sounds, wheezes throughout. Diminished bases GASTROINTESTINAL: Abdomen soft, obese, +hernia. Bowel sounds present. + rectal bag GENITOURINARY: Without palpable bladder distension. Gutiérrez catheter in place. MUSCULOSKELETAL: generalized edema. BUE soft restraints NEUROLOGICAL: opens eyes. sedated on vent PSYCHIATRIC: unable to assess, pt sedated on vent Diagnostic Tests Laboratory: Laboratory Results - last 72 hr 05/31/18 06/03/18 06/03/18 20:00 13:58 17:28 WBC RBC Hgb Hct MCV MCH MCHC RDW Plt Count MPV Neut % (Auto) Lymph % (Auto) Clinton % (Auto) Eos % (Auto) Baso % (Auto) Neut # (Auto) Lymph # (Auto) Clinton # (Auto) Eos # (Auto) Baso # (Auto) WBC Differential Differential Comment Puncture Site Patient Temperature O2 Saturation ABG pH ABG pCO2 ABG pO2 ABG HCO3 ABG O2 Content ABG Base Excess ABG Methemoglobin Calin Test Hemoglobin Carboxyhemoglobin O2 Delivery Device Vent Setting Inspired O2 Critical Value Sodium Potassium Chloride Carbon Dioxide Anion Gap BUN Creatinine Estimated GFR POC Glucose 327 H 328 H Random Glucose Calcium Phosphorus Magnesium Total Bilirubin AST ALT Alkaline Phosphatase Total Protein Albumin Nasal Screen MRSA (PCR) Mrsa detected 06/04/18 06/04/18 06/04/18 00:17 04:15 04:15 WBC 7.8 RBC 4.83 Hgb 13.1 Hct 42.8 MCV 88.7 MCH 27.1 MCHC 30.5 L RDW 17.1 Plt Count 130 L MPV 7.8 Neut % (Auto) 94.1 H Lymph % (Auto) 2.1 L Clinton % (Auto) 3.6 Eos % (Auto) 0.0 Baso % (Auto) 0.2 Neut # (Auto) 7.3 Lymph # (Auto) 0.2 L Clinton # (Auto) 0.3 Eos # (Auto) 0.0 Baso # (Auto) 0.0 WBC Differential . Differential Comment Auto diff final Puncture Site Patient Temperature O2 Saturation ABG pH ABG pCO2 ABG pO2 ABG HCO3 ABG O2 Content ABG Base Excess ABG Methemoglobin Calin Test Hemoglobin Carboxyhemoglobin O2 Delivery Device Vent Setting Inspired O2 Critical Value Sodium 144 Potassium 5.1 Chloride 108 H Carbon Dioxide 29.2 Anion Gap 7 BUN 40 H Creatinine 1.00 Estimated GFR 55 L POC Glucose 245 H Random Glucose 263 H Calcium 7.9 L Phosphorus Magnesium Total Bilirubin 0.4 AST 9 L ALT 21 Alkaline Phosphatase 50 Total Protein 5.4 L Albumin 2.4 L Nasal Screen MRSA (PCR) 06/04/18 06/04/18 06/04/18 05:26 12:35 16:41 WBC RBC Hgb Hct MCV MCH MCHC RDW Plt Count MPV Neut % (Auto) Lymph % (Auto) Clinton % (Auto) Eos % (Auto) Baso % (Auto) Neut # (Auto) Lymph # (Auto) Clinton # (Auto) Eos # (Auto) Baso # (Auto) WBC Differential Differential Comment Puncture Site Patient Temperature O2 Saturation ABG pH ABG pCO2 ABG pO2 ABG HCO3 ABG O2 Content ABG Base Excess ABG Methemoglobin Calin Test Hemoglobin Carboxyhemoglobin O2 Delivery Device Vent Setting Inspired O2 Critical Value Sodium Potassium Chloride Carbon Dioxide Anion Gap BUN Creatinine Estimated GFR POC Glucose 261 H 255 H 273 H Random Glucose Calcium Phosphorus Magnesium Total Bilirubin AST ALT Alkaline Phosphatase Total Protein Albumin Nasal Screen MRSA (PCR) 06/04/18 06/04/18 06/05/18 21:30 23:45 00:36 WBC RBC Hgb Hct MCV MCH MCHC RDW Plt Count MPV Neut % (Auto) Lymph % (Auto) Clinton % (Auto) Eos % (Auto) Baso % (Auto) Neut # (Auto) Lymph # (Auto) Clinton # (Auto) Eos # (Auto) Baso # (Auto) WBC Differential Differential Comment Puncture Site Right radial Patient Temperature 98.6 O2 Saturation 95 ABG pH 7.37 L ABG pCO2 52 H* ABG pO2 111 ABG HCO3 29 H ABG O2 Content 17.9 ABG Base Excess 4.4 H ABG Methemoglobin 1.3 Calin Test Present Hemoglobin 13.3 Carboxyhemoglobin 1.3 O2 Delivery Device Ventilator Vent Setting Pc/ac Inspired O2 45 Critical Value Yes Sodium Potassium Chloride Carbon Dioxide Anion Gap BUN Creatinine Estimated GFR POC Glucose 203 H 193 H Random Glucose Calcium Phosphorus Magnesium Total Bilirubin AST ALT Alkaline Phosphatase Total Protein Albumin Nasal Screen MRSA (PCR) 06/05/18 06/05/18 06/05/18 03:15 03:15 03:15 WBC 7.9 RBC 4.92 Hgb 13.5 Hct 44.0 MCV 89.6 MCH 27.4 MCHC 30.5 L RDW 16.6 Plt Count 118 L MPV 8.3 Neut % (Auto) 91.6 H Lymph % (Auto) 3.5 L Clinton % (Auto) 4.6 Eos % (Auto) 0.2 Baso % (Auto) 0.1 Neut # (Auto) 7.2 Lymph # (Auto) 0.3 L Clinton # (Auto) 0.4 Eos # (Auto) 0.0 Baso # (Auto) 0.0 WBC Differential . Differential Comment Auto diff final Puncture Site Patient Temperature O2 Saturation ABG pH ABG pCO2 ABG pO2 ABG HCO3 ABG O2 Content ABG Base Excess ABG Methemoglobin Calin Test Hemoglobin Carboxyhemoglobin O2 Delivery Device Vent Setting Inspired O2 Critical Value Sodium 142 Potassium 5.2 H Chloride 105 Carbon Dioxide 32.0 Anion Gap 5 BUN 40 H Creatinine 0.97 Estimated GFR 57 L POC Glucose Random Glucose 227 H Calcium 7.9 L Phosphorus 3.1 Magnesium 2.2 Total Bilirubin AST ALT Alkaline Phosphatase Total Protein Albumin Nasal Screen MRSA (PCR) 06/05/18 06/05/18 06/05/18 05:01 08:25 17:09 WBC RBC Hgb Hct MCV MCH MCHC RDW Plt Count MPV Neut % (Auto) Lymph % (Auto) Clinton % (Auto) Eos % (Auto) Baso % (Auto) Neut # (Auto) Lymph # (Auto) Clinton # (Auto) Eos # (Auto) Baso # (Auto) WBC Differential Differential Comment Puncture Site Patient Temperature O2 Saturation ABG pH ABG pCO2 ABG pO2 ABG HCO3 ABG O2 Content ABG Base Excess ABG Methemoglobin Calin Test Hemoglobin Carboxyhemoglobin O2 Delivery Device Vent Setting Inspired O2 Critical Value Sodium Potassium Chloride Carbon Dioxide Anion Gap BUN Creatinine Estimated GFR POC Glucose 219 H 202 H 232 H Random Glucose Calcium Phosphorus Magnesium Total Bilirubin AST ALT Alkaline Phosphatase Total Protein Albumin Nasal Screen MRSA (PCR) 06/05/18 06/06/18 06/06/18 21:00 00:28 03:00 WBC 8.1 RBC 5.17 Hgb 14.0 Hct 45.0 MCV 87.0 MCH 27.0 MCHC 31.1 L RDW 16.3 Plt Count 118 L MPV 8.4 Neut % (Auto) 90.7 H Lymph % (Auto) 3.6 L Clinton % (Auto) 5.4 Eos % (Auto) 0.2 Baso % (Auto) 0.1 Neut # (Auto) 7.4 Lymph # (Auto) 0.3 L Clinton # (Auto) 0.4 Eos # (Auto) 0.0 Baso # (Auto) 0.0 WBC Differential . Differential Comment Auto diff final Puncture Site Patient Temperature O2 Saturation ABG pH ABG pCO2 ABG pO2 ABG HCO3 ABG O2 Content ABG Base Excess ABG Methemoglobin Calin Test Hemoglobin Carboxyhemoglobin O2 Delivery Device Vent Setting Inspired O2 Critical Value Sodium Potassium 4.5 Chloride Carbon Dioxide Anion Gap BUN Creatinine Estimated GFR POC Glucose 179 H Random Glucose Calcium Phosphorus Magnesium Total Bilirubin AST ALT Alkaline Phosphatase Total Protein Albumin Nasal Screen MRSA (PCR) 06/06/18 06/06/18 06/06/18 03:00 06:15 08:10 WBC RBC Hgb Hct MCV MCH MCHC RDW Plt Count MPV Neut % (Auto) Lymph % (Auto) Clinton % (Auto) Eos % (Auto) Baso % (Auto) Neut # (Auto) Lymph # (Auto) Clinton # (Auto) Eos # (Auto) Baso # (Auto) WBC Differential Differential Comment Puncture Site Patient Temperature O2 Saturation ABG pH ABG pCO2 ABG pO2 ABG HCO3 ABG O2 Content ABG Base Excess ABG Methemoglobin Calin Test Hemoglobin Carboxyhemoglobin O2 Delivery Device Vent Setting Inspired O2 Critical Value Sodium 139 Potassium 4.8 Chloride 102 Carbon Dioxide 27.0 Anion Gap 10 BUN 39 H Creatinine 0.90 Estimated GFR 62 L POC Glucose 221 H 224 H Random Glucose 218 H Calcium 8.2 L Phosphorus 1.9 L D Magnesium 2.0 Total Bilirubin 0.5 AST 16 ALT 25 Alkaline Phosphatase 53 Total Protein 5.5 L Albumin 2.3 L Nasal Screen MRSA (PCR) Result Diagrams: 06/07/18 05:05 06/07/18 05:05 Microbiology: Microbiology 05/30/18 22:21 Aerobic Blood Culture - Final Blood - Peripheral No growth in 5 days Anaerobic Blood Culture - Final No growth in 5 days 05/30/18 22:21 Aerobic Blood Culture - Final Blood - Peripheral No growth in 5 days Anaerobic Blood Culture - Final No growth in 5 days Procedures: 05/31 intubated 05/31 IJ placed Assessment and Plan - Disease Oriented Problem List (1) Respiratory failure (2) Sepsis secondary to UTI (3) COPD exacerbation (4) Acute kidney injury (5) Acute UTI (urinary tract infection) (6) SVT (supraventricular tachycardia) Pertinent Non-Medical Issues: Psychosocial: 3 months ago moved from [place] to [place]. Lives at home with son Shad, daughter Yissel "Nallely" and Shad's . Shad and his take care of pt. She is originally from . She worked at [employer] for 14 years. She was but her 2 years ago. Spiritual: per son she identified with no particular moravian Legal: pt incapacitated to make decisions at this time. It is not clear if she will regain that capacity. Per [place] statutes medical decision making would fall to the majority of her 6 children. Ethical issues impacting care: none identified Important Contacts: Son Shad (local) [phone] Daughter Yissel "Nallely" (local) [phone] [place] Children: Adrian Scott [phone] Adarsh "SARAI" Tyler [phone] Sarwat Osborne (incarcerated) - [place], [place] POC Captain Hanley, Prognosis: 67 yo morbidly obese female with hx tobacco abuse, diabetes who presented with progressive weakness and was found to be septic with SUNIL, UTI. She developed respiratory distress and was intubated. Her kidney function has improved somewhat. Her underlying morbid obesity may significantly impair her ability to recover from a respiratory standpoint, as will her likely underlying COPD. Prior she was mostly sedentary and unable to care for herself; much of that burden had fallen to her son who admittedly is quite overwhelmed. If she requires ventilatory support beyond another week, she will require tracheostomy and feeding tube. Should she recover enough to be extubated, she will need placement in a nursing facility. Her numerous comorbidities and poor prior health status put her at significant risk for continued complications and decline. Code Status: Alternative Code (intubation only) Plan: * LEGAL DECISION MAKER - pt incapacitated to make decisions at this time. It is not clear if she will regain that capacity. [place] medical decision making would fall to the majority of her 5 children. Thus far 4 of 5 are participating. contact has not yet been made with Adrian. * GOALS - The children are making an effort to work together. They appoint Shad local emergency spokesperson. They acknowledge that she was knowingly "killing herself" and seem to all be in agreement that "she didn't want to suffer like her [their father]." At this point they did not indicate that they would definitely want trach & PEG. * CODE STATUS - alternative code, intubation only * SYMPTOMS - * dyspnea - multifactorial. intubated 05/31 after change in mental status. reported hx ANIVAL untreated, COPD, heavy tobacco use, ?pickwick syndrome, +atrial flutter with RVR. ID feels respiratory issues 2/2 COPD exacerbation in obese smoker. Currently sedated on vent, PEEP 8, pressure 18. Has scheduled duonebs which per RT are not helping, midazolam drip increased to 5 ml/hr, steroid taper * pain - multifactorial 2/2 multiples lines, catheter, discomfort from ET tube. Appears comfortable on my eval. Has fentanyl drip rate 10ml/hr * weakness/debility - 2/2 morbid obesity, sedentary lifestyle and subsequent deconditioning, sepsis. Was having lower extremity weakness for prior 3 weeks and on admission was unable to get up. PT following. * Palliative care will continue to follow as hospital course evolves to assist pt/decision makers weight benefits and burdens of treatment options, and assist with symptoms of palliative concern Attestation Attestation: To help prompt me to consider important information that might be impacting today's encounter and assessment, information from prior notes written by myself or my colleagues may have been "brought forward" into today's note. My signature on this note, however, is an attestation that I personally performed the exam, history, and/or decision-making noted today, and, unless otherwise indicated, the interactions with patient, family, and staff as well as the review of records all occurred today. I also attest that the listed assessment and stated plan reflect my best clinical judgment today based on the combination of historical information, prior notes, and today's exam/ interactions. When time spent is documented, it refers only to time spent today by the signer, or if indicated, combined time spent today by collaborating physician/nurse practitioner.
[2018-06-06] MEDS ORDERED: Vancomycin Inj 1,000 MG in Sodium Chlor 0.9% Inj 250 ML IV.SIG ONE (12:44)
--- NOTE | 2018-06-06 12:51 | P.PNID ---
Subjective Remarks: Patient is a 67-year-old female, lives at home with her son, brought into the hospital for evaluation of 2-3 week history of generalized weakness. According to the notes normally she can ambulate in her home using a walker. She was still able to do some ambulation, however for the past 2 days, patient apparently has not been able to get up. It was also noted that she was having some swelling in her abdomen and there was some mention of possible redness. There was no mention of any fever or chills. She has not been congested or coughing. She has not been complaining of any chest pain or any shortness of breath. There is been no nausea or vomiting, or complaints of any diarrhea or urinary complaints. She has known hypertension and diabetes, and there was mention that she has not been able to take her medications since she did not have any money to get her refills. She was initially admitted to the regular floor, and but she developed progressive lethargy, and she was transferred to the ICU. She has not been febrile. Her mental status continued to deteriorate, and she ended up getting intubated. Her chest x-ray showing opacity on the left base. She also has evidence of elevated creatinine, as well as hyperkalemia. Her urinalysis did show significant pyuria. She is getting fluid resuscitation. Currently her blood pressure is holding. Infectious disease consultation has been requested to evaluate the patient with severe sepsis, UTI, and possible scabies. Notes reviewed Afebrile BP ok On the vent, sedated RLE with 3rd toe blackening noted with erythema and tenderness. Diarrhea has dignishield. Stool Cdiff negative. Antibiotics: Cefepime Vancomycin Lines: LIJ TLC Past Medical History: Depression Diabetes Hypertension Hypertriglyceridemia Allergies/Adverse Reactions: Allergies No Known Allergies Allergy (Verified 05/30/18 22:08) Objective Vital Signs 06/05/18 13:00 06/05/18 14:00 06/05/18 15:00 Temperature Pulse Rate 86 72 72 Respiratory Rate 18 18 18 Blood Pressure 153/96 H 134/89 140/93 H Pulse Oximetry 93 L 93 L 93 L 06/05/18 16:00 06/05/18 16:24 06/05/18 17:00 Temperature Pulse Rate 85 78 75 Respiratory Rate 18 18 18 Blood Pressure 136/86 124/73 Pulse Oximetry 93 L 92 L 91 L 06/05/18 18:00 06/05/18 18:01 06/05/18 18:02 Temperature Pulse Rate 85 77 76 Respiratory Rate 18 18 18 Blood Pressure 150/111 H 156/105 H Pulse Oximetry 91 L 92 L 92 L 06/05/18 18:13 06/05/18 19:00 06/05/18 20:00 Temperature 97.9 F Pulse Rate 86 76 75 Respiratory Rate 18 18 18 Blood Pressure 139/102 H 125/80 Pulse Oximetry 90 L 91 L 93 L 06/05/18 20:40 06/05/18 21:00 06/05/18 21:35 Temperature Pulse Rate 82 84 81 Respiratory Rate 18 18 18 Blood Pressure 131/90 Pulse Oximetry 94 L 93 L 91 L 06/05/18 22:00 06/05/18 23:00 06/05/18 23:01 Temperature Pulse Rate 79 91 H 83 Respiratory Rate 18 18 18 Blood Pressure 125/80 155/81 H Pulse Oximetry 92 L 91 L 91 L 06/06/18 00:00 06/06/18 00:07 06/06/18 01:00 Temperature 98 F Pulse Rate 74 83 89 Respiratory Rate 18 18 18 Blood Pressure 126/83 Pulse Oximetry 91 L 92 L 93 L 06/06/18 01:01 06/06/18 01:02 06/06/18 02:00 Temperature Pulse Rate 99 H 88 94 H Respiratory Rate 18 8 L 18 Blood Pressure 163/110 H 153/98 H 142/104 H Pulse Oximetry 93 L 94 L 94 L 06/06/18 03:00 06/06/18 03:01 06/06/18 04:00 Temperature 97.8 F Pulse Rate 105 H 98 H 95 H Respiratory Rate 18 18 0 L Blood Pressure 145/68 H 129/87 Pulse Oximetry 94 L 95 93 L 06/06/18 04:19 06/06/18 05:00 06/06/18 06:00 Temperature Pulse Rate 89 86 80 Respiratory Rate 18 0 L 0 L Blood Pressure 124/81 119/86 Pulse Oximetry 94 L 95 95 06/06/18 07:00 06/06/18 08:00 06/06/18 08:01 Temperature 97.7 F Pulse Rate 76 77 75 Respiratory Rate 18 Blood Pressure 131/89 133/91 H 133/91 H Pulse Oximetry 96 96 96 06/06/18 09:00 07/16/18 10:00 06/06/18 10:01 Temperature Pulse Rate 79 76 76 Respiratory Rate Blood Pressure 121/82 118/78 Pulse Oximetry 96 96 96 06/06/18 12:10 Temperature Pulse Rate 49 L Respiratory Rate 18 Blood Pressure Pulse Oximetry 95 Intake & Output 06/05/18 06/06/18 06/06/18 18:59 06:59 18:59 Intake Total 947 / 947 990 / 990 250 / 250 Output Total 1700 / 1700 1500 / 1500 Balance -753 / -753 -510 / -510 250 / 250 Weight 159.2 kg Intake: IV 350 / 350 50 / 50 250 / 250 Versed Inj 50 mg In 50 ml @ 2 0 / 0 50 / 50 MG/HR 2 mls/hr IV.CONT TITRATE PRN Rx#:[id number] Teflaro Inj 600 MG In NS Inj 100 / 100 100 ML @ 100 mls/hr IV.SIG Q12H BECKY Rx#:[id number] fentaNYL 10 mcg/mL Premix Drip 250 / 250 250 / 250 2,500 mcg In 250 ml @ 50 MCG/HR 5 mls/hr IV.SIG TITRATE PRN Rx #:[id number] Oral 0 / 0 Tube Feeding 547 / 547 490 / 490 Tube Irrigant 50 / 50 50 / 50 Water Bolus Amount 400 / 400 Output: Urine 1300 / 1300 Stool 100 / 100 Urine/Stool Mix 100 / 100 Urine Amount (Catheter) 1700 / 1700 Indwelling Urethral Catheter 1700 / 1700 Other: Date of Last Bowel Movement 06/04/18 06/04/18 06/04/18 # Bowel Movements 0 # Incontinent Bowel Movements 0 05/30/18 22:21 Blood - Peripheral Aerobic Blood Culture - Final No growth in 5 days 05/30/18 22:21 Blood - Peripheral Anaerobic Blood Culture - Final No growth in 5 days 05/30/18 22:21 Blood - Peripheral Aerobic Blood Culture - Final No growth in 5 days 05/30/18 22:21 Blood - Peripheral Anaerobic Blood Culture - Final No growth in 5 days Lab - Hematology Results 06/05/18 06/06/18 03:15 03:00 WBC 7.9 8.1 RBC 4.92 5.17 Hgb 13.5 14.0 Hct 44.0 45.0 MCV 89.6 87.0 MCH 27.4 27.0 MCHC 30.5 L 31.1 L RDW 16.6 16.3 Plt Count 118 L 118 L MPV 8.3 8.4 Neut % (Auto) 91.6 H 90.7 H Lymph % (Auto) 3.5 L 3.6 L [place] % (Auto) 4.6 5.4 Eos % (Auto) 0.2 0.2 Baso % (Auto) 0.1 0.1 Neut # (Auto) 7.2 7.4 Lymph # (Auto) 0.3 L 0.3 L [place] # (Auto) 0.4 0.4 Eos # (Auto) 0.0 0.0 Baso # (Auto) 0.0 0.0 WBC Differential . . Differential Comment Auto diff final Auto diff final Lab - Chemistry Results 06/04/18 06/04/18 06/04/18 12:35 16:41 21:30 Sodium Potassium Chloride Carbon Dioxide Anion Gap BUN Creatinine Estimated GFR POC Glucose 255 H 273 H 203 H Random Glucose Calcium Phosphorus Magnesium Total Bilirubin AST ALT Alkaline Phosphatase Total Protein Albumin 06/05/18 06/05/18 06/05/18 00:36 03:15 03:15 Sodium 142 Potassium 5.2 H Chloride 105 Carbon Dioxide 32.0 Anion Gap 5 BUN 40 H Creatinine 0.97 Estimated GFR 57 L POC Glucose 193 H Random Glucose 227 H Calcium 7.9 L Phosphorus 3.1 Magnesium 2.2 Total Bilirubin AST ALT Alkaline Phosphatase Total Protein Albumin 06/05/18 06/05/18 06/05/18 05:01 08:25 17:09 Sodium Potassium Chloride Carbon Dioxide Anion Gap BUN Creatinine Estimated GFR POC Glucose 219 H 202 H 232 H Random Glucose Calcium Phosphorus Magnesium Total Bilirubin AST ALT Alkaline Phosphatase Total Protein Albumin 06/05/18 06/06/18 06/06/18 21:00 00:28 03:00 Sodium 139 Potassium 4.5 4.8 Chloride 102 Carbon Dioxide 27.0 Anion Gap 10 BUN 39 H Creatinine 0.90 Estimated GFR 62 L POC Glucose 179 H Random Glucose 218 H Calcium 8.2 L Phosphorus 1.9 L D Magnesium 2.0 Total Bilirubin 0.5 AST 16 ALT 25 Alkaline Phosphatase 53 Total Protein 5.5 L Albumin 2.3 L 06/06/18 06/06/18 06:15 08:10 Sodium Potassium Chloride Carbon Dioxide Anion Gap BUN Creatinine Estimated GFR POC Glucose 221 H 224 H Random Glucose Calcium Phosphorus Magnesium Total Bilirubin AST ALT Alkaline Phosphatase Total Protein Albumin Imaging: ITS Impressions Abdomen/Bladder Ultrasound 05/31/18 00:00 CONCLUSION: 1. No obstructive uropathy or other acute abnormality demonstrated. 2. Benign cyst of the right kidney. Abdomen/Pelvis CT 05/31/18 00:00 CONCLUSION: 1. Cholelithiasis. 2. Colonic diverticulosis without definitive evidence for diverticulitis. 3. Prominent uterus with hypodense 6 cm mass anteriorly likely reflecting a pedunculated fibroid. 4. Appendix is not visualized and potentially obscured by the uterine fibroid. 5. Large fat-containing left-sided anterior abdominal wall hernia. 6. Diffuse soft tissue edema in the inferior abdominal pannus. Head CT 05/31/18 00:00 CONCLUSION: 1. No acute intracranial abnormality. 2. Minimal paranasal sinus mucosal disease. Foot X-Ray 06/02/18 00:00 CONCLUSION: There is a destructive change at the distal aspect of the third distal phalanx at the tuft. Osteomyelitis needs be considered. 0.4 cm calcific density seen at the proximal lateral plantar aspect of the third digit. Chest X-Ray 06/06/18 06:00 CONCLUSION: Support apparatus unchanged. Bilateral mostly basilar airspace disease and cardiomegaly with effusions also not significantly changed considering differences in technique. Physical Exam: GENERAL: Patient is a morbidly obese, well-developed female, on sedation, NAD, on the vent. SKIN: Cool and dry. Has some purplish skin in neck folds and axilla. Has abdominal striae. Has improving dark reddish papules in both legs some are linear ramon. Has dry skin in all her toes and between her toes. Has excoriations in her mons pubis/suprapubic region. Right 3rd toe with blackening and surrounding erythema noted. HEAD: Atraumatic. Normocephalic. No temporal wasting, or tenderness. EYES: [place] conjunctiva. Has bilateral conjunctival injection. Pupils equal, round and reactive to light. EARS, NOSE AND THROAT: Nose without bleeding or purulent nasal discharge. Mucous membranes moist. Orally intubated. NECK: Short and obese neck, supple, no meningeal signs CARDIOVASCULAR: Regular rate and rhythm. No murmurs, rubs or gallops heard RESPIRATORY: Decreased breath sounds both bases. Has bilateral wheezing ABDOMEN: Obese abdomen, soft, with striae, has large abdominal pannus, has obese mons pubis with excoriations, bowel sounds present and normoactive. No guarding. EXTREMITIES: No clubbing, pedal edema. Dry gangrene at tip of R 3rd toe, no redness NEUROLOGICAL: Opens eyes some, no Babinski, no clonus PSYCHIATRIC: Unable to assess LINE LIJ: No evidence of infection, has several PIV Assessment and Plan - Plan Impression Sepsis on presentation due to UTI, possible PNA L. Possible right 3rd toe osteomyelitis. Acute renal failure, likely multifactorial, dehydration, sepsis, resolved Respiratory failure, could have underlying ANIVAL due to morbid obesity, possibly PNA L - developed high pCo2 due to hypoventilation Rash looks like scabies, S/P Rx scabies with permethrim Recommendation Continue IV Cefepime for GNR coverage. Change Teflearo to IV Vanco since renak funstion back to normal Repeat UA and C/S Podiatry notes reviewed. WBC normal, no fevers, does not appear to be sepsis related resp deterioration rather it appears to be a COPD exacerbation in a smoker and obese patient with high likelihood of sleep apnea cw Hypercarbic resp failure. Monitor progress
[2018-06-06] MEDS ORDERED: Vancomycin Consult Pharmacy 1 EACH OTHER SCH (13:00)
--- NOTE | 2018-06-06 17:57 | MB ---
cc: Nj Miner MD, PhD DATE: 06/06/2018 REASON FOR CONSULTATION: Encephalopathy. HISTORY OF PRESENT ILLNESS: Ms. Scott is a 67-year-old woman who presented to the hospital with lethargy, generalized weakness. No focal deficits, was found to have renal failure and a UTI and sepsis, has been with decreased level of responsiveness. CURRENT MEDICATIONS: Tylenol liquid, albuterol nebulizer, Artificial Tears, Dulcolax, cefepime, Peridex, Celexa, Fentanyl, subcu heparin 5000 units q. 8 hours, insulin, Prinivil, Ativan, Solu-Medrol 30 mg IV daily, Versed IV, pravastatin 80 mg daily, Maira-Colace, Senokot, vancomycin. NEUROLOGICAL EXAMINATION: VITAL SIGNS: Blood pressure is 120/76, pulse is 55, respirations 18, temperature is 97.8 degrees. HIGHER CORTICAL FUNCTIONS: Lethargic. She does open eyes to commands, does not follow any complex commands. Pupils are 2 mm, symmetric and reactive. Extraocular movements intact to doll's eyes. MOTOR EXAM: She had some spontaneous movement in the left arm. None in the right arm or right leg or left leg. IMAGING STUDIES: CT brain, which was obtained on 05/31/2018: Unremarkable for any acute change. EEG obtained on 06/03/2018: Some background slowing, 2-3 Hz, possible spike, slow wave versus eye movement artifact. LABORATORY DATA: White 8100, hemoglobin 14, hematocrit 45%, platelet count 118,000. Sodium is 139, potassium 4.8, chloride 102, CO2 27, BUN is 39, creatinine 0.9, GFR 62, glucose 179. AST 16, ALT 25. IMPRESSION: Probable metabolic encephalopathy. RECOMMENDATION: Would like to repeat the EEG to followup on the sharp activity and also if possible, if the patient is stable enough for MRI of the brain, to be sure there has not been an infarction. Nj Miner MD, PhD JOE/SB , 05:42 PM , 05:56 PM
[2018-06-06 19:56] LABS: Bilirubin,Urine Negative (Negative); Clarity,Urine Clear (Clear); Color,Urine Yellow (Yellw/Straw); Glucose,Urine (UA) 150 mg/dL (Negative); Leukocyte Esterase,Urine Negative (Negative); Nitrite,Urine Negative (Negative); Squamous Epithelial Cell,Urine 1 /hpf (0-5)
[2018-06-06] MEDS: Hypromellose 0.3% Opth Gel 10 GM Bottle EACH EYE SCH (21:37)
--- NOTE | 2018-06-06 21:58 | MG ---
cc: Joseph Greenwood MD ELECTROENCEPHALOGRAM NUMBER: [id number]. DESCRIPTION: Intubated, on Versed, fentanyl drip. Generalized 1-3 Hz delta activity, with occasional spindles 20-50 microvolts. No driving or photic stimulation. Minimal EEG variability and reactivity. Single lead EKG showing sinus tachycardia, with premature contractions. INTERPRETATION: Moderate to severe encephalopathy. Clinical correlation. MD TEN Joseph/IVANIA , 09:17 PM , 09:56 PM
[2018-06-07] MEDS: Oral Hygiene Kit OROPHARYNG SCH ×4 (01:16→15:47)
[2018-06-07] MEDS: Heparin - SQ 10,000 UNITS/ML Vial SQ SCH ×3 (02:06→18:17)
[2018-06-07 05:42] LABS: Baso % (Auto) 0.1 % (0.0-2.0); Eos # (Auto) 0.1 th/mm3 (0.0-0.4); Eos % (Auto) 1.5 % (0.0-4.0); Hematocrit 44.3 % (35.0-46.0); Hemoglobin 13.9 gm/dL (11.6-15.3); Lymph # (Auto) 0.6 th/mm3 (1.0-4.8); Lymph % (Auto) 6.3 % (9.0-44.0); Mean Corpuscular HGB Conc 31.4 % (32.0-36.0); Mean Corpuscular Hemoglobin 27.3 pg (27.0-34.0); Mean Platelet Volume 8.4 fL (7.0-11.0); Mono # (Auto) 0.7 th/mm3 (0.0-0.9); Mono % (Auto) 8.3 % (0.0-8.0); Neut # (Auto) 7.4 th/mm3 (1.8-7.7); Neut % (Auto) 83.8 % (16.0-70.0); Platelet Count 117 th/mm3 (150-450); Red Blood Count 5.09 mil/mm3 (4.00-5.30); Red Cell Distribution Width 16.6 % (11.6-17.2); White Blood Count 8.9 th/mm3 (4.0-11.0)
[2018-06-07 05:56] LABS: Albumin 2.2 g/dL (3.4-5.0); Anion Gap 9 meq/L (5-15); Aspartate Aminotransferase 15 U/L (15-37); Blood Urea Nitrogen 36 mg/dL (7-18); Calcium 8.3 mg/dL (8.5-10.1); Carbon Dioxide 27.3 meq/L (21.0-32.0); Chloride 101 meq/L (98-107); Glomerular Filtration Rate 74 mL/min (>89); Glucose,Random 172 mg/dL (74-106); Potassium 4.8 meq/L (3.5-5.1); Sodium 137 meq/L (136-145)
[2018-06-07 05:57] LABS: Alanine Aminotransferase 32 U/L (10-53)
[2018-06-07 05:59] LABS: Alkaline Phosphatase 56 U/L (45-117); Total Protein 5.4 g/dL (6.4-8.2)
[2018-06-07] MEDS: Insulin NovoLIN Regular Correctional Sugar Inj SQ SCH ×3 (06:05→18:16)
[2018-06-07] MEDS: Chlorhexidine 0.12% Oral Kit 15 ML UDC OROPHARYNG SCH ×2 (07:51→22:36)
[2018-06-07] MEDS: Midazolam 50 MG/50 ML Inj 50 MG/50 ML BAG IV.CONT PRN ×2 (07:52→15:56)
[2018-06-07] MEDS: fentaNYL 10 mcg/mL Premix Drip 2,500 MCG/250 ML BAG IV.SIG PRN (07:53)
[2018-06-07] MEDS: Mupirocin 2% Nasal Oint Topical Syringe EACH NARE SCH ×2 (08:02→22:36)
[2018-06-07] MEDS: Insulin Detemir Inj 1,000 UNIT/10 ML Vial SQ SCH ×2 (08:02→10:37)
[2018-06-07] MEDS: Vancomycin Inj 1,500 MG in Sodium Chlor 0.9% Inj 500 ML IV.SIG SCH (08:02)
[2018-06-07] MEDS: Senna/Docusate Sodium 8.6/50 MG Tablet PO SCH ×2 (08:02→22:38)
[2018-06-07] MEDS: MethylPREDNISolone Sod Succinate Inj 40 MG/ML Vial IV.PUSH SCH (08:02)
--- NOTE | 2018-06-07 13:08 | MR ---
EXAM DATE: 06/07/2018 1:03 PM EDT AGE/SEX: 67 years / Female INDICATIONS: CVA. CLINICAL DATA: This is the patient's initial encounter. Patient reports that signs and symptoms have been present for 1 week and indicates a pain score of Nonresponsive. MEDICAL/SURGICAL HISTORY: Hypertension. Diabetes mellitus type II. None. COMPARISON: [facility] – [place], CT HEAD W/O CONTRAST, 05/31/2018. . TECHNIQUE: Multiplanar, multisequence examination of the brain was performed without contrast. FINDINGS: Cerebrum: Mild diffuse cerebral atrophy. The ventricles are normal for degree of atrophy. No eviden ce of midline shift, mass lesion, hemorrhage or acute infarction. No extraaxial fluid collections ar e seen. The pituitary gland and suprasellar cistern are normal in configuration. White Matter: Mild periventricular and deep white matter focal T2 prolongation. Posterior Fossa: The cerebellum and brainstem are intact. The 4th ventricle is midline. The cerebel lopontine angle is unremarkable. The cerebellar tonsils are normal in position. Diffusion Imaging: No focal areas of restricted diffusion are seen. No evidence of acute infarction . Extracranial: The visualized portions of the orbits are unremarkable. Mucoperiosteal thickening and fluid in the sphenoid sinuses. CONCLUSION: 1. Senescent changes with mild periventricular ischemic white matter demyelination. 2. Otherwise, unremarkable MRI examination of the brain. Specifically, no evidence for acute infarct ion. 3. Paranasal sinus disease. Electronically signed by: Rip Roy MD 06/07/2018 1:07 PM EDT
--- NOTE | 2018-06-07 14:08 | P.PNCC ---
Subjective Subjective Remarks/Hospital Course: Mrs. Scott is a 67-year-old female with past medical history significant for morbid obesity, type 2 diabetes, hypertension, probable COPD who was brought in by the family yesterday night because of increasing weakness and lethargic, this was ongoing for last 2 weeks got worse over the last 2 days. Unable to get detailed history from patient due to lethargy. ER workup showed patient had a urinary tract infection and sepsis, also chest x-ray showed bilateral interstitial infiltrates, and LLL consolidation. There is also evidence of acute kidney injury with creatinine up to 2.59, BUN 89. Intermittently having tachyarrhythmia/atrial flutter with rate in in 130s. Patient was admitted to the hospital service. At the time of hospitalist (Dr. Mckeon) evaluation patient was very lethargic and ABG showed a pH of 7.08 and a PCO2 of 91, PO2 was 70 on 5 L nasal cannula. Patient was immediately placed on BiPAP. Approximately after 45 minutes ABG was repeat showed only marginal improvement pH of 7.12 and PCO2 of 84. Patient was emergently transferred to the ICU and critical care was consulted I evaluated the patient in the ICU. She is currently on BiPAP 15/. Patient is lethargic, even though arousable she falls right back to sleep. Airway protection was questionable. With severe hypercarbic respiratory failure complicated with sepsis, metabolic encephalopathy and acute kidney failure, decision was made to intubate the patient. I endotracheally intubate the patient in placed on the mechanical ventilation. Prior to and post intubation patient heart rate remained in 130s. Hypotensive postintubation, stat 2 L fluid boluses given. Also started on Levophed to keep map above 65. Patient had been placed on Rocephin and will discontinue this and start renally dosed cefepime, add azithromycin for atypical coverage. ID consulted for questionable scabies and sepsis with shock 06/02: Remains critically ill but stabilizing more. ABG shows correction of severe hypercapnia. FiO2 remains at 50%. Urine output adequate BUN remains elevated creatinine slightly improved. Received treatment with permethrin 06/02: Currently afebrile. Bradycardic on the ventilator. Will adjust sedation to midazolam and fentanyl drips. Tolerating tube feeds at 30 cc an hour. XRT of the right foot ordered. 06/03 No events overnight. Sedated with Versed and Fentanyl drips. Afebrile. 06/04: Remains on midazolam drip at 4 mg an hour and fentanyl drip at 100 mcg an hour. Tolerating tube feeds. Currently afebrile. Failed spontaneous breathing trials today. 06/05: Ventilator settings unchanged. Remains on midazolam drip at 5 mg an hour and fentanyl drip at 100 mcg an hour. Tolerating tube feeds. We will reattempt spontaneous breathing trials today. 06/06 Patient is sedated with Fentanyl and versed drips and intubated. Afebrile. Subjective 06/07: Afebrile. Remains on midazolam drip at 5 mg an hour and fentanyl drip at 100 mcg an hour. MRI brain revealed no acute intracranial findings. Opens eyes. Not following commands currently. Objective Vital Signs / I&O: Vital Signs 06/06/18 14:08 06/06/18 15:00 06/06/18 15:24 Temperature Pulse Rate 55 L 89 64 Respiratory Rate 18 15 0 L Blood Pressure 121/76 132/91 H Pulse Oximetry 97 97 96 06/06/18 16:00 06/06/18 16:06 06/06/18 16:11 Temperature Pulse Rate 71 62 Respiratory Rate 2 L 18 18 Blood Pressure Pulse Oximetry 97 96 06/06/18 17:00 06/06/18 17:27 06/06/18 18:00 Temperature Pulse Rate 51 L 56 L 57 L Respiratory Rate 13 18 5 L Blood Pressure 128/82 Pulse Oximetry 97 96 96 06/06/18 18:01 06/06/18 19:00 06/06/18 19:59 Temperature 97.8 F Pulse Rate 71 77 Respiratory Rate 11 L 5 L 18 Blood Pressure 130/76 128/82 Pulse Oximetry 96 96 97 06/06/18 20:00 06/06/18 21:00 06/06/18 21:25 Temperature Pulse Rate 83 80 103 H Respiratory Rate 18 18 18 Blood Pressure 126/73 Pulse Oximetry 97 95 94 L 06/06/18 22:00 06/06/18 23:00 06/06/18 23:47 Temperature Pulse Rate 66 58 L Respiratory Rate 14 14 18 Blood Pressure Pulse Oximetry 96 98 93 L 06/07/18 00:00 06/07/18 01:00 06/07/18 02:00 Temperature 98.0 F Pulse Rate 62 60 68 Respiratory Rate 16 13 18 Blood Pressure 124/63 Pulse Oximetry 95 99 97 06/07/18 02:45 06/07/18 03:00 06/07/18 04:00 Temperature 98.2 F Pulse Rate 78 64 71 Respiratory Rate 19 18 18 Blood Pressure 124/63 117/58 L 120/75 Pulse Oximetry 98 97 93 L 06/07/18 04:44 06/07/18 05:00 06/07/18 06:00 Temperature Pulse Rate 61 58 L Respiratory Rate 18 18 18 Blood Pressure 110/64 110/63 Pulse Oximetry 93 L 96 96 06/07/18 07:00 06/07/18 08:00 06/07/18 09:00 Temperature Pulse Rate 60 62 60 Respiratory Rate 18 18 18 Blood Pressure 96/55 L 112/57 L 91/50 L Pulse Oximetry 94 L 97 96 06/07/18 10:00 06/07/18 11:00 06/07/18 11:41 Temperature Pulse Rate 57 L 54 L Respiratory Rate 18 18 18 Blood Pressure 86/50 L 93/54 L Pulse Oximetry 94 L 94 L 93 L 06/07/18 12:00 Temperature 98.6 F Pulse Rate 52 L Respiratory Rate 18 Blood Pressure 86/54 L Pulse Oximetry 93 L Intake & Output 06/06/18 06/07/18 06/07/18 18:59 06:59 18:59 Intake Total 1286 / 1286 732 / 732 300 / 300 Output Total 1200 / 1200 1050 / 1050 Balance 86 / 86 -318 / -318 300 / 300 Weight 161 kg Intake: IV 750 / 750 300 / 300 Versed Inj 50 mg In 50 ml @ 2 50 / 50 50 / 50 MG/HR 2 mls/hr IV.CONT TITRATE PRN Rx#:[id number] Maxipime Inj 2,000 MG In NS Inj 100 / 100 100 ML @ 200 mls/hr IV.SIG Q12H BECKY Rx#:[id number] Teflaro Inj 600 MG In NS Inj 100 / 100 100 ML @ 100 mls/hr IV.SIG Q12H BECKY Rx#:[id number] Vancomycin Inj 1,000 MG In NS 250 / 250 Inj 250 ML @ 250 mls/hr IV.SIG ONCE ONE Rx#:[id number] fentaNYL 10 mcg/mL Premix Drip 250 / 250 250 / 250 2,500 mcg In 250 ml @ 50 MCG/HR 5 mls/hr IV.SIG TITRATE PRN Rx #:[id number] Tube Feeding 536 / 536 332 / 332 Water Bolus Amount 400 / 400 Output: Stool 50 / 50 50 / 50 Urine Amount (Catheter) 1150 / 1150 1000 / 1000 Indwelling Urethral Catheter 1150 / 1150 1000 / 1000 Other: Date of Last Bowel Movement 06/04/18 06/07/18 06/07/18 Result Diagrams: 06/07/18 05:05 06/07/18 05:05 Other Results: Microbiology 05/30/18 22:21 Blood - Peripheral Aerobic Blood Culture - Final No growth in 5 days 05/30/18 22:21 Blood - Peripheral Anaerobic Blood Culture - Final No growth in 5 days 05/30/18 22:21 Blood - Peripheral Aerobic Blood Culture - Final No growth in 5 days 05/30/18 22:21 Blood - Peripheral Anaerobic Blood Culture - Final No growth in 5 days 05/31/18 14:50 Wound - Abdominal Gram Stain - Final 05/31/18 14:50 Wound - Abdominal Wound Culture - Final S. aureus MRSA 05/31/18 13:08 Urine - Catheterized Urine Streptococcus pneumoniae Antigen ( M - Final Presumptive negative for streptococcus pneumoniae antigen, suggesting no current or recent infection. Infection due to Streptococcus pneumoniae cannot be ruled out since the antigen present in the sample may be below the detection limit of the test. 05/31/18 13:08 Urine - Catheterized Urine Legionella Antigen - Final Presumptive negative for Legionella pneumophila serogroup 1 antigen in urine, suggesting no recent or recurrent infection. Infection due to Legionella cannot be ruled out since other serogroups and species may cause disease, antigen may not be present in urine in early infection, and the level of antigen present in the urine may be below the detection limit of the test. 05/30/18 22:56 Clean Catch Urine Urine Culture - Final 50-100,000 cfu/mL mixed leesa (probable contaminants ) Imaging: Chest X-Ray 05/30/18 22:09 CONCLUSION: Cardiomegaly. Diffuse increased interstitial markings likely related to edema. Increased density at the left base with silhouetting of the left hemidiaphragm secondary to left base atelectasis, consolidation and/or effusion. Abdomen/Bladder Ultrasound 05/31/18 00:00 CONCLUSION: 1. No obstructive uropathy or other acute abnormality demonstrated. 2. Benign cyst of the right kidney. Abdomen/Pelvis CT 05/31/18 00:00 CONCLUSION: 1. Cholelithiasis. 2. Colonic diverticulosis without definitive evidence for diverticulitis. 3. Prominent uterus with hypodense 6 cm mass anteriorly likely reflecting a pedunculated fibroid. 4. Appendix is not visualized and potentially obscured by the uterine fibroid. 5. Large fat-containing left-sided anterior abdominal wall hernia. 6. Diffuse soft tissue edema in the inferior abdominal pannus. Head CT 05/31/18 00:00 CONCLUSION: 1. No acute intracranial abnormality. 2. Minimal paranasal sinus mucosal disease. Chest X-Ray 05/31/18 13:55 CONCLUSION: 1. Cardiomegaly with resolving interstitial edema and improving aeration in the left lung base. 2. Endotracheal tube appropriately positioned above the brittnee. Nasogastric tube is curled in the gastric fundus and the left IJ central venous catheter is identified. At the junction of the left and right brachiocephalic vein. Foot X-Ray 06/02/18 00:00 CONCLUSION: There is a destructive change at the distal aspect of the third distal phalanx at the tuft. Osteomyelitis needs be considered. 0.4 cm calcific density seen at the proximal lateral plantar aspect of the third digit. Chest X-Ray 06/02/18 06:00 CONCLUSION: 1. Stable tubes and lines. 2. Cardiomegaly with positive fluid balance. 3. Stable left and worsening right lower lung zone airspace disease. Chest X-Ray 06/03/18 06:00 CONCLUSION: Cardiomegaly with bilateral airspace disease greater in the right lung, unchanged. Chest X-Ray 06/04/18 00:00 CONCLUSION: No significant change Chest X-Ray 06/05/18 06:00 CONCLUSION: No significant change Chest X-Ray 06/06/18 06:00 CONCLUSION: Support apparatus unchanged. Bilateral mostly basilar airspace disease and cardiomegaly with effusions also not significantly changed considering differences in technique. Head MRI 06/07/18 00:00 CONCLUSION: 1. Senescent changes with mild periventricular ischemic white matter demyelination. 2. Otherwise, unremarkable MRI examination of the brain. Specifically, no evidence for acute infarction. 3. Paranasal sinus disease. Objective Remarks: GENERAL: 67-year-old female currently resting in bed currently orotracheally intubated SKIN: Cool and dry. Tinea cruris, axillary region and under the breasts. Excoriated pannus in back. Purple rash and excoriation bilateral lower extremity HEAD: Atraumatic. Normocephalic. No temporal wasting, or tenderness. EYES: Pupils equal, round and reactive to light. Extraocular movements are present EARS, NOSE AND THROAT: Edentulous. Mucous membranes dry. Orotracheally intubated NECK: Short and obese neck, supple, left IJ is clean dry and intact. CARDIOVASCULAR: Diminished heart sounds. Tachycardic. RR. No murmurs, rubs or gallops heard RESPIRATORY: Diminished breath sounds throughout due to body habitus. No wheezing ABDOMEN: Obese abdomen, soft, with multiple striae and excoriations EXTREMITIES: Positive pedal edema. Has mild mottling both feet. Purple rash and excoriation bilateral lower extremity. Necrotic appearing right third toe. NEUROLOGICAL: Cranial nerves appear to be grossly intact. Positive gag and cough. Spontaneously moves extremities to stimulation. Currently spontaneously opens eyes. Not following commands currently. Assessment and Plan - Assessment and Plan Plan: NEURO/Psych: Acute severe encephalopathy secondary to severe sepsis/hypercarbia Depression disorder NOS Chronic benzodiazepine use On midazolam drip at 5 mg an hour and fentanyl drip at 100 mcg an hour for sedation. Daily sedation vacation. Goal of RASS -2 CT brain on admission revealed no acute intracranial findings 06/06 EEG, severe encephalopathyepileptiform activity Acetaminophen 650 every 6 hours as needed fever Holding citalopram 20 mg daily/home medication for depression. Resume clinically indicated On lorazepam 0.5 mg at night as needed. Currently on 1 mg every 15 minutes for possible seizure activity? MRI brain revealed no acute intracranial abnormalities RESP: Acute respiratory failure/hypercarbic and hypoxemic Acute COPD exacerbation Probable community-acquired pneumonia On PC/AC RR 18, IP: 32, IT:1.0, PEEP:8, FIO2 45 Ventilator bundle -Albuterol/ipratropium aerosols every 4 hours scheduled and albuterol aerosols every 2 hours as needed Continue IV methylprednisolone succinate 40 mg every 12 Spontaneous breathing trials as clinically indicated CV: Atrial flutter with rapid ventricular response resolved Sinus bradycardia currently sinus tachycardia History of essential hypertension History of dyslipidemia Off all vasopressors -Echo showed EF 50-55% -Monitor HR and BP keep MAP>65mmHg Currently on pravastatin 80 mg daily, hospital substitution for simvastatin 40 mg daily which is her home medication GI: Hypoalbuminemia Cholelithiasis Sigmoid diverticulosis Abdominal wall hernia/left-sided Hypoalbuminemia -on tube feeds with vital 1.5 goal 65 cc an hour. Lansoprazole for GI prophylaxis Docusate sodium/senna 1 tablet twice daily for bowel regimen CT abdomen/pelvis revealed cholelithiasis, sigmoid colonic diverticulosis, and abdominal wall hernia Renal/[employer]/: Acute kidney injury resolving 6 cm uterine fibroid Right renal cyst -Monitor renal function, I/O's. avoid nephrotoxins -Renal ultrasound -right renal cyst otherwise no signs of obstruction. -Nephrology is following, Dr. Narvaez On 1/2NS@20ml/hr, free water 200ml Q6 ID: UTI Wound cultures positive for MRSA -ID following, continue cefepime and vancomycin per IDs recommendation. Azithromycin discontinued 06/03 ceftaroline discontinued 06/06 Monitor or signs of infections (Fever, WBC) Right 3rd toe and other skin lesions/cellulitis on LLE likely sources of infection Xray foot: There is a destructive change at the distal aspect of the third distal phalanx at the tuft. 0.4 cm calcific density seen at the proximal lateral plantar aspect of the third digit. Podiatry is following, might need right third digit amputation per Podiatry Mupirocin to nares twice daily Pertinent cultures 05/31 -wound culture -MRSA 05/30 -blood cultures 2 -no growth 05/30 -UA -50- 100,000 -s/p Permethrin cream 5% for possible scabies HEME: Thrombocytopenia No indication for transfusion of blood products at this time -Monitor CBC, CMP, coags FEN/ENDO: Diabetes mellitus Hypophosphatemia Holding home medications Metformin 1000 mg twice daily and glipizide at 5 mg twice daily. TSH 0.97 Insulin detemir 24 units BID and SSI with Novolin R q. 6 hour Accu-Cheks MSK: Elevated BMI Necrotic appearing right third toe. Xray foot: There is a destructive change at the distal aspect of the third distal phalanx at the tuft. Podiatry is following, recommend amputation when clinically stable Wt loss encouraged PT evaluate and treat PROPH: -Bilateral lower extremity SCDs. Heparin subcu 5000 units every 8 hours. Lansoprazole 30 mg daily LINES: -Left IJ central line placed 7/10/18 Palliative care is following Level 3 follow-up
[2018-06-07] MEDS ORDERED: Magnesium Oxide 400 MG Tablet PO PRN (15:23)
[2018-06-07] MEDS ORDERED: Potassium Chloride 25 MEQ Effervescent Tablet PO PRN (15:23)
[2018-06-07] MEDS ORDERED: Potassium Phosphate 500 MG Soluble Tablet PO PRN ×2 (15:23)
[2018-06-07] MEDS ORDERED: Potassium Chlor 40 mEq Premix 40 MEQ/100 ML PIGGYBACK IV.SIG PRN ×2 (15:23)
[2018-06-07] MEDS ORDERED: Potassium Phosphate Inj 30 MMOL in Sodium Chlor 0.9% Inj 250 ML IV.SIG PRN (15:23)
[2018-06-07] MEDS ORDERED: Magnesium Sulfate Inj 2 GM in Sodium Chlor 0.9% Inj 96 ML IV.SIG PRN (15:23)
[2018-06-07] MEDS ORDERED: Magnesium Sulfate Inj 4 GM in Sodium Chlor 0.9% Inj 92 ML IV.SIG PRN (15:23)
[2018-06-07] MEDS ORDERED: Potassium Chlor 20 mEq Premix 20 MEQ/100 ML PIGGYBACK IV.SIG PRN ×2 (15:23)
[2018-06-07] MEDS ORDERED: Sodium Phosphate Inj 30 MMOL in Sodium Chlor 0.9% Inj 250 ML IV.SIG PRN (15:23)
[2018-06-07] MEDS: Hypromellose 0.3% Opth Gel 10 GM Bottle EACH EYE SCH (22:36)
[2018-06-08] MEDS: Insulin NovoLIN Regular Correctional Sugar Inj SQ SCH ×4 (01:02→18:32)
[2018-06-08] MEDS: Oral Hygiene Kit OROPHARYNG SCH ×4 (01:03→15:36)
[2018-06-08] MEDS: Sodium Chloride 0.45 % Inj 1,000 ML IV.CONT SCH ×4 (01:03→20:25)
[2018-06-08] MEDS ORDERED: Pharmacy Ordered Lab Info OTHER ONE (01:45)
[2018-06-08] MEDS: Midazolam 50 MG/50 ML Inj 50 MG/50 ML BAG IV.CONT PRN ×2 (02:32→15:39)
[2018-06-08] MEDS: Heparin - SQ 10,000 UNITS/ML Vial SQ SCH ×3 (02:34→18:32)
[2018-06-08 02:43] LABS: Baso % (Auto) 0.4 % (0.0-2.0); Eos # (Auto) 0.1 th/mm3 (0.0-0.4); Eos % (Auto) 1.3 % (0.0-4.0); Hematocrit 44.8 % (35.0-46.0); Lymph # (Auto) 0.7 th/mm3 (1.0-4.8); Lymph % (Auto) 8.9 % (9.0-44.0); Mean Corpuscular HGB Conc 31.3 % (32.0-36.0); Mean Corpuscular Hemoglobin 27.1 pg (27.0-34.0); Mean Corpuscular Volume 86.7 fL (80.0-100.0); Mean Platelet Volume 8.4 fL (7.0-11.0); Mono # (Auto) 0.6 th/mm3 (0.0-0.9); Mono % (Auto) 7.3 % (0.0-8.0); Neut # (Auto) 6.5 th/mm3 (1.8-7.7); Neut % (Auto) 82.1 % (16.0-70.0); Platelet Count 120 th/mm3 (150-450); Red Blood Count 5.16 mil/mm3 (4.00-5.30); Red Cell Distribution Width 16.6 % (11.6-17.2); White Blood Count 7.9 th/mm3 (4.0-11.0)
[2018-06-08 03:02] LABS: Albumin 2.4 g/dL (3.4-5.0); Anion Gap 7 meq/L (5-15); Aspartate Aminotransferase 13 U/L (15-37); Blood Urea Nitrogen 35 mg/dL (7-18); Chloride 104 meq/L (98-107); Glomerular Filtration Rate 75 mL/min (>89); Glucose,Random 136 mg/dL (74-106); Magnesium 1.9 mg/dL (1.5-2.5); Potassium 4.4 meq/L (3.5-5.1); Sodium 139 meq/L (136-145)
[2018-06-08 03:06] LABS: Alanine Aminotransferase 33 U/L (10-53); Alkaline Phosphatase 57 U/L (45-117); Phosphorus 2.4 mg/dL (2.5-4.9); Total Protein 5.5 g/dL (6.4-8.2); Vancomycin,Trough 10.9 mcg/mL (5.0-10.0)
[2018-06-08] MEDS: Vancomycin Inj 1,500 MG in Sodium Chlor 0.9% Inj 500 ML IV.SIG SCH ×2 (03:12→17:14)
--- NOTE | 2018-06-08 04:58 | XR ---
EXAM DATE: 06/08/2018 4:56 AM EDT AGE/SEX: 67 years / Female INDICATIONS: . Shortness of breath. CLINICAL DATA: This is the patient's subsequent encounter. Patient reports that signs and symptoms h ave been present for 2 weeks and indicates a pain score of Nonresponsive. MEDICAL/SURGICAL HISTORY: . Hypertension. Depression. Diabetes. Hypertriglyceridemia. None. COMPARISON: [facility], CHEST 1V SINGLE AP, 06/06/2018. . FINDINGS: Endotracheal tube in good position. NG coiled in stomach. Ill-defined opacity in the lungs, probably dependent consolidation or mild edema. Cardiomegaly. CONCLUSION: No significant change in bilateral mostly basilar and dependent airspace disease and possible mild ed anthony. Endotracheal tube and nasogastric tube unchanged. Left central line in left brachiocephalic vein . Electronically signed by: Sloan Adler MD 06/08/2018 4:57 AM EDT
[2018-06-08] MEDS: fentaNYL 10 mcg/mL Premix Drip 2,500 MCG/250 ML BAG IV.SIG PRN (05:40)
[2018-06-08] MEDS: Insulin Detemir Inj 1,000 UNIT/10 ML Vial SQ SCH ×2 (09:14→20:12)
[2018-06-08] MEDS: MethylPREDNISolone Sod Succinate Inj 40 MG/ML Vial IV.PUSH SCH (09:15)
[2018-06-08] MEDS: Senna/Docusate Sodium 8.6/50 MG Tablet PO SCH ×2 (09:15→20:10)
[2018-06-08] MEDS: Chlorhexidine 0.12% Oral Kit 15 ML UDC OROPHARYNG SCH ×2 (09:15→20:14)
[2018-06-08] MEDS: Mupirocin 2% Nasal Oint Topical Syringe EACH NARE SCH ×2 (09:15→20:24)
--- NOTE | 2018-06-08 10:20 | P.PNID ---
Subjective Remarks: Patient is a 67-year-old female, lives at home with her son, brought into the hospital for evaluation of 2-3 week history of generalized weakness. According to the notes normally she can ambulate in her home using a walker. She was still able to do some ambulation, however for the past 2 days, patient apparently has not been able to get up. It was also noted that she was having some swelling in her abdomen and there was some mention of possible redness. There was no mention of any fever or chills. She has not been congested or coughing. She has not been complaining of any chest pain or any shortness of breath. There is been no nausea or vomiting, or complaints of any diarrhea or urinary complaints. She has known hypertension and diabetes, and there was mention that she has not been able to take her medications since she did not have any money to get her refills. She was initially admitted to the regular floor, and but she developed progressive lethargy, and she was transferred to the ICU. She has not been febrile. Her mental status continued to deteriorate, and she ended up getting intubated. Her chest x-ray showing opacity on the left base. She also has evidence of elevated creatinine, as well as hyperkalemia. Her urinalysis did show significant pyuria. She is getting fluid resuscitation. Currently her blood pressure is holding. Infectious disease consultation has been requested to evaluate the patient with severe sepsis, UTI, and possible scabies. Notes reviewed Afebrile BP ok On the vent, sedated RLE with 3rd toe blackening noted, stable Diarrhea has dignishield. Stool Cdiff negative. Antibiotics: Cefepime Vancomycin Lines: LIJ TLC Past Medical History: Depression Diabetes Hypertension Hypertriglyceridemia Allergies/Adverse Reactions: Allergies No Known Allergies Allergy (Verified 05/30/18 22:08) Objective Vital Signs 06/07/18 11:00 06/07/18 11:41 06/07/18 12:00 Temperature 98.6 F Pulse Rate 54 L 52 L Respiratory Rate 18 18 18 Blood Pressure 93/54 L 86/54 L Pulse Oximetry 94 L 93 L 93 L 06/07/18 12:25 06/07/18 13:13 06/07/18 14:00 Temperature Pulse Rate 63 104 H 59 L Respiratory Rate 33 H 18 Blood Pressure 139/81 Pulse Oximetry 97 91 L 93 L 06/07/18 15:00 06/07/18 15:17 06/07/18 15:48 Temperature Pulse Rate 50 L 53 L Respiratory Rate 18 18 18 Blood Pressure 98/56 L Pulse Oximetry 92 L 95 94 L 06/07/18 16:00 06/07/18 16:01 06/07/18 18:00 Temperature 97.8 F Pulse Rate 49 L 49 L 51 L Respiratory Rate 18 18 Blood Pressure 93/50 L Pulse Oximetry 94 L 95 06/07/18 20:00 06/07/18 20:06 06/07/18 22:00 Temperature 98.7 F Pulse Rate 53 L 47 L Respiratory Rate 18 18 Blood Pressure 102/57 L Pulse Oximetry 93 L 06/07/18 23:25 06/08/18 00:00 06/08/18 02:00 Temperature 98.5 F Pulse Rate 47 L 48 L 63 Respiratory Rate 18 18 Blood Pressure 102/53 L Pulse Oximetry 93 L 93 L 06/08/18 03:37 06/08/18 04:00 06/08/18 04:09 Temperature Pulse Rate 93 H 59 L Respiratory Rate 18 18 18 Blood Pressure 122/59 L Pulse Oximetry 92 L 94 L 06/08/18 06:00 06/08/18 08:33 Temperature Pulse Rate 57 L Respiratory Rate 18 Blood Pressure Pulse Oximetry 96 Intake & Output 06/07/18 06/08/18 06/08/18 18:59 06:59 18:59 Intake Total 1827 / 1827 1930 / 1930 Output Total 1550 / 1550 2925 / 2925 Balance 277 / 277 -995 / -995 Weight 160.2 kg Intake: IV 965 / 965 915 / 915 Versed Inj 50 mg In 50 ml @ 2 100 / 100 50 / 50 MG/HR 2 mls/hr IV.CONT TITRATE PRN Rx#:[id number] Maxipime Inj 2,000 MG In NS Inj 100 / 100 100 / 100 100 ML @ 200 mls/hr IV.SIG Q12H [facility] Rx#:[id number] Vancomycin Inj 1,500 MG In NS 515 / 515 515 / 515 Inj 500 ML @ 250 mls/hr IV.SIG Q18H [facility] Rx#:[id number] fentaNYL 10 mcg/mL Premix Drip 250 / 250 250 / 250 2,500 mcg In 250 ml @ 50 MCG/HR 5 mls/hr IV.SIG TITRATE PRN Rx #:[id number] Tube Feeding 462 / 462 615 / 615 Water Bolus Amount 400 / 400 400 / 400 Output: Urine 1550 / 1550 Stool 0 / 0 Urine Amount (Catheter) 2925 / 2925 Indwelling Urethral Catheter 2925 / 2925 Other: Date of Last Bowel Movement 06/07/18 06/07/18 Lab - Hematology Results 06/07/18 06/08/18 05:05 02:23 WBC 8.9 7.9 RBC 5.09 5.16 Hgb 13.9 14.0 Hct 44.3 44.8 MCV 87.0 86.7 MCH 27.3 27.1 MCHC 31.4 L 31.3 L RDW 16.6 16.6 Plt Count 117 L 120 L MPV 8.4 8.4 Neut % (Auto) 83.8 H 82.1 H Lymph % (Auto) 6.3 L 8.9 L Ocean % (Auto) 8.3 H 7.3 Eos % (Auto) 1.5 1.3 Baso % (Auto) 0.1 0.4 Neut # (Auto) 7.4 6.5 Lymph # (Auto) 0.6 L 0.7 L Ocean # (Auto) 0.7 0.6 Eos # (Auto) 0.1 0.1 Baso # (Auto) 0.0 0.0 WBC Differential . . Differential Comment Auto diff final Auto diff final Lab - Chemistry Results 06/06/18 06/06/18 06/06/18 14:00 17:23 18:53 Sodium Potassium Chloride Carbon Dioxide Anion Gap BUN Creatinine Estimated GFR POC Glucose 217 H 265 H Random Glucose Calcium Phosphorus Magnesium Total Bilirubin AST ALT Alkaline Phosphatase Ammonia 18 Total Protein Albumin 06/06/18 06/07/18 06/07/18 23:52 05:05 05:08 Sodium 137 Potassium 4.8 Chloride 101 Carbon Dioxide 27.3 Anion Gap 9 BUN 36 H Creatinine 0.78 Estimated GFR 74 L POC Glucose 191 H 167 H Random Glucose 172 H Calcium 8.3 L Phosphorus Magnesium Total Bilirubin 0.5 AST 15 ALT 32 Alkaline Phosphatase 56 Ammonia Total Protein 5.4 L Albumin 2.2 L 06/07/18 06/07/18 06/07/18 11:02 14:30 17:18 Sodium Potassium Chloride Carbon Dioxide Anion Gap BUN Creatinine Estimated GFR POC Glucose 172 H 177 H Random Glucose Calcium Phosphorus 3.5 D Magnesium Total Bilirubin AST ALT Alkaline Phosphatase Ammonia Total Protein Albumin 06/08/18 06/08/18 06/08/18 00:59 02:23 06:50 Sodium 139 Potassium 4.4 Chloride 104 Carbon Dioxide 28.0 Anion Gap 7 BUN 35 H Creatinine 0.77 Estimated GFR 75 L POC Glucose 158 H 168 H Random Glucose 136 H Calcium 8.0 L Phosphorus 2.4 L D Magnesium 1.9 Total Bilirubin 0.5 AST 13 L ALT 33 Alkaline Phosphatase 57 Ammonia Total Protein 5.5 L Albumin 2.4 L Imaging: ITS Impressions Abdomen/Bladder Ultrasound 05/31/18 00:00 CONCLUSION: 1. No obstructive uropathy or other acute abnormality demonstrated. 2. Benign cyst of the right kidney. Abdomen/Pelvis CT 05/31/18 00:00 CONCLUSION: 1. Cholelithiasis. 2. Colonic diverticulosis without definitive evidence for diverticulitis. 3. Prominent uterus with hypodense 6 cm mass anteriorly likely reflecting a pedunculated fibroid. 4. Appendix is not visualized and potentially obscured by the uterine fibroid. 5. Large fat-containing left-sided anterior abdominal wall hernia. 6. Diffuse soft tissue edema in the inferior abdominal pannus. Head CT 05/31/18 00:00 CONCLUSION: 1. No acute intracranial abnormality. 2. Minimal paranasal sinus mucosal disease. Foot X-Ray 06/02/18 00:00 CONCLUSION: There is a destructive change at the distal aspect of the third distal phalanx at the tuft. Osteomyelitis needs be considered. 0.4 cm calcific density seen at the proximal lateral plantar aspect of the third digit. Head MRI 06/07/18 00:00 CONCLUSION: 1. Senescent changes with mild periventricular ischemic white matter demyelination. 2. Otherwise, unremarkable MRI examination of the brain. Specifically, no evidence for acute infarction. 3. Paranasal sinus disease. Chest X-Ray 06/08/18 06:00 CONCLUSION: No significant change in bilateral mostly basilar and dependent airspace disease and possible mild edema. Endotracheal tube and nasogastric tube unchanged. Left central line in left brachiocephalic vein. Physical Exam: GENERAL: on sedation, NAD, on the vent. SKIN: Cool and dry. Has abdominal striae. Has dry skin in all her toes and between her toes. HEAD: Atraumatic. Normocephalic. No temporal wasting, or tenderness. EYES: Comunas conjunctiva. Pupils equal, round and reactive to light. EARS, NOSE AND THROAT: Nose without bleeding or purulent nasal discharge. Mucous membranes moist. Orally intubated. NECK: Short and obese neck, supple, no meningeal signs CARDIOVASCULAR: Regular rate and rhythm. No murmurs, rubs or gallops heard RESPIRATORY: Decreased breath sounds both bases. Has bilateral wheezing ABDOMEN: Obese abdomen, soft, with striae, has large abdominal pannus, has obese mons pubis with excoriations, bowel sounds present and normoactive. No guarding. EXTREMITIES: No clubbing, pedal edema. Dry gangrene at tip of R 3rd toe, no redness NEUROLOGICAL: Opens eyes some, no Babinski, no clonus PSYCHIATRIC: Unable to assess LINE [facility]J: No evidence of infection, has several PIV Assessment and Plan - Plan Impression Sepsis on presentation due to UTI, possible PNA L. UTI, repeat UA better Possible right 3rd toe osteomyelitis. - destructive lesion at the tuft Acute renal failure, likely multifactorial, dehydration, sepsis, resolved Respiratory failure, could have underlying ANIVAL due to morbid obesity, possibly PNA L - developed high pCo2 due to hypoventilation Rash looks like scabies, S/P Rx scabies with permethrim Recommendation Continue IV Cefepime for GNR coverage. - give until 06/14 Continue to IV Vanco WBC normal, no fevers, does not appear to be sepsis related resp deterioration rather it appears to be a COPD exacerbation in a smoker and obese patient with high likelihood of sleep apnea cw Hypercarbic resp failure. Address 3rd toe when family decides on goals of Rx Monitor progress Palliative medicine notes reviewed
--- NOTE | 2018-06-08 12:45 | P.PNCC ---
Subjective Subjective Remarks/Hospital Course: Mrs. Scott is a 67-year-old female with past medical history significant for morbid obesity, type 2 diabetes, hypertension, probable COPD who was brought in by the family yesterday night because of increasing weakness and lethargic, this was ongoing for last 2 weeks got worse over the last 2 days. Unable to get detailed history from patient due to lethargy. ER workup showed patient had a urinary tract infection and sepsis, also chest x-ray showed bilateral interstitial infiltrates, and LLL consolidation. There is also evidence of acute kidney injury with creatinine up to 2.59, BUN 89. Intermittently having tachyarrhythmia/atrial flutter with rate in in 130s. Patient was admitted to the hospital service. At the time of hospitalist (Dr. Mckeon) evaluation patient was very lethargic and ABG showed a pH of 7.08 and a PCO2 of 91, PO2 was 70 on 5 L nasal cannula. Patient was immediately placed on BiPAP. Approximately after 45 minutes ABG was repeat showed only marginal improvement pH of 7.12 and PCO2 of 84. Patient was emergently transferred to the ICU and critical care was consulted I evaluated the patient in the ICU. She is currently on BiPAP 15/. Patient is lethargic, even though arousable she falls right back to sleep. Airway protection was questionable. With severe hypercarbic respiratory failure complicated with sepsis, metabolic encephalopathy and acute kidney failure, decision was made to intubate the patient. I endotracheally intubate the patient in placed on the mechanical ventilation. Prior to and post intubation patient heart rate remained in 130s. Hypotensive postintubation, stat 2 L fluid boluses given. Also started on Levophed to keep map above 65. Patient had been placed on Rocephin and will discontinue this and start renally dosed cefepime, add azithromycin for atypical coverage. ID consulted for questionable scabies and sepsis with shock 06/02: Remains critically ill but stabilizing more. ABG shows correction of severe hypercapnia. FiO2 remains at 50%. Urine output adequate BUN remains elevated creatinine slightly improved. Received treatment with permethrin 06/02: Currently afebrile. Bradycardic on the ventilator. Will adjust sedation to midazolam and fentanyl drips. Tolerating tube feeds at 30 cc an hour. XRT of the right foot ordered. 06/03 No events overnight. Sedated with Versed and Fentanyl drips. Afebrile. 06/04: Remains on midazolam drip at 4 mg an hour and fentanyl drip at 100 mcg an hour. Tolerating tube feeds. Currently afebrile. Failed spontaneous breathing trials today. 06/05: Ventilator settings unchanged. Remains on midazolam drip at 5 mg an hour and fentanyl drip at 100 mcg an hour. Tolerating tube feeds. We will reattempt spontaneous breathing trials today. 06/06 Patient is sedated with Fentanyl and versed drips and intubated. Afebrile. 06/07: Afebrile. Remains on midazolam drip at 5 mg an hour and fentanyl drip at 100 mcg an hour. MRI brain revealed no acute intracranial findings. Opens eyes. Not following commands currently. Subjective 06/08: Afebrile. Remains on midazolam drip. Opens eyes but not following commands currently. Tolerating tube feeds at goal. Positive BM. Objective Vital Signs / I&O: Vital Signs 06/07/18 13:13 06/07/18 14:00 06/07/18 15:00 Temperature Pulse Rate 104 H 59 L 50 L Respiratory Rate 18 18 Blood Pressure Pulse Oximetry 91 L 93 L 92 L 06/07/18 15:17 06/07/18 15:48 06/07/18 16:00 Temperature 97.8 F Pulse Rate 53 L 49 L Respiratory Rate 18 18 18 Blood Pressure 98/56 L Pulse Oximetry 95 94 L 94 L 06/07/18 16:01 06/07/18 18:00 06/07/18 20:00 Temperature 98.7 F Pulse Rate 49 L 51 L 53 L Respiratory Rate 18 18 Blood Pressure 93/50 L 102/57 L Pulse Oximetry 95 06/07/18 20:06 06/07/18 22:00 06/07/18 23:25 Temperature Pulse Rate 47 L 47 L Respiratory Rate 18 18 Blood Pressure Pulse Oximetry 93 L 93 L 06/08/18 00:00 06/08/18 02:00 06/08/18 03:37 Temperature 98.5 F Pulse Rate 48 L 63 93 H Respiratory Rate 18 18 Blood Pressure 102/53 L Pulse Oximetry 93 L 06/08/18 04:00 06/08/18 04:09 06/08/18 06:00 Temperature Pulse Rate 59 L 57 L Respiratory Rate 18 18 Blood Pressure 122/59 L Pulse Oximetry 92 L 94 L 06/08/18 08:00 06/08/18 08:30 06/08/18 08:33 Temperature 98.2 F Pulse Rate 53 L 57 L Respiratory Rate 18 Blood Pressure 98/56 L Pulse Oximetry 97 96 06/08/18 10:00 06/08/18 11:26 06/08/18 11:34 Temperature Pulse Rate 62 64 Respiratory Rate 11 L 11 L Blood Pressure Pulse Oximetry 92 L Intake & Output 06/07/18 06/08/18 06/08/18 18:59 06:59 18:59 Intake Total 1827 / 1827 1930 / 1930 Output Total 1550 / 1550 2925 / 2925 Balance 277 / 277 -995 / -995 Weight 160.2 kg Intake: IV 965 / 965 915 / 915 Versed Inj 50 mg In 50 ml @ 2 100 / 100 50 / 50 MG/HR 2 mls/hr IV.CONT TITRATE PRN Rx#:[id number] Maxipime Inj 2,000 MG In NS Inj 100 / 100 100 / 100 100 ML @ 200 mls/hr IV.SIG Q12H [facility] Rx#:[id number] Vancomycin Inj 1,500 MG In NS 515 / 515 515 / 515 Inj 500 ML @ 250 mls/hr IV.SIG Q18H [facility] Rx#:[id number] fentaNYL 10 mcg/mL Premix Drip 250 / 250 250 / 250 2,500 mcg In 250 ml @ 50 MCG/HR 5 mls/hr IV.SIG TITRATE PRN Rx #:[id number] Tube Feeding 462 / 462 615 / 615 Water Bolus Amount 400 / 400 400 / 400 Output: Urine 1550 / 1550 Stool 0 / 0 Urine Amount (Catheter) 2925 / 2925 Indwelling Urethral Catheter 2925 / 2925 Other: Date of Last Bowel Movement 06/07/18 06/07/18 06/08/18 Result Diagrams: 06/08/18 02:23 06/08/18 02:23 Other Results: Microbiology 05/30/18 22:21 Blood - Peripheral Aerobic Blood Culture - Final No growth in 5 days 05/30/18 22:21 Blood - Peripheral Anaerobic Blood Culture - Final No growth in 5 days 05/30/18 22:21 Blood - Peripheral Aerobic Blood Culture - Final No growth in 5 days 05/30/18 22:21 Blood - Peripheral Anaerobic Blood Culture - Final No growth in 5 days 05/31/18 14:50 Wound - Abdominal Gram Stain - Final 05/31/18 14:50 Wound - Abdominal Wound Culture - Final S. aureus MRSA 05/31/18 13:08 Urine - Catheterized Urine Streptococcus pneumoniae Antigen ( M - Final Presumptive negative for streptococcus pneumoniae antigen, suggesting no current or recent infection. Infection due to Streptococcus pneumoniae cannot be ruled out since the antigen present in the sample may be below the detection limit of the test. 05/31/18 13:08 Urine - Catheterized Urine Legionella Antigen - Final Presumptive negative for Legionella pneumophila serogroup 1 antigen in urine, suggesting no recent or recurrent infection. Infection due to Legionella cannot be ruled out since other serogroups and species may cause disease, antigen may not be present in urine in early infection, and the level of antigen present in the urine may be below the detection limit of the test. 05/30/18 22:56 Clean Catch Urine Urine Culture - Final 50-100,000 cfu/mL mixed leesa (probable contaminants ) Imaging: ITS Impressions Abdomen/Bladder Ultrasound 05/31/18 00:00 CONCLUSION: 1. No obstructive uropathy or other acute abnormality demonstrated. 2. Benign cyst of the right kidney. Abdomen/Pelvis CT 05/31/18 00:00 CONCLUSION: 1. Cholelithiasis. 2. Colonic diverticulosis without definitive evidence for diverticulitis. 3. Prominent uterus with hypodense 6 cm mass anteriorly likely reflecting a pedunculated fibroid. 4. Appendix is not visualized and potentially obscured by the uterine fibroid. 5. Large fat-containing left-sided anterior abdominal wall hernia. 6. Diffuse soft tissue edema in the inferior abdominal pannus. Head CT 05/31/18 00:00 CONCLUSION: 1. No acute intracranial abnormality. 2. Minimal paranasal sinus mucosal disease. Foot X-Ray 06/02/18 00:00 CONCLUSION: There is a destructive change at the distal aspect of the third distal phalanx at the tuft. Osteomyelitis needs be considered. 0.4 cm calcific density seen at the proximal lateral plantar aspect of the third digit. Head MRI 06/07/18 00:00 CONCLUSION: 1. Senescent changes with mild periventricular ischemic white matter demyelination. 2. Otherwise, unremarkable MRI examination of the brain. Specifically, no evidence for acute infarction. 3. Paranasal sinus disease. Chest X-Ray 06/08/18 06:00 CONCLUSION: No significant change in bilateral mostly basilar and dependent airspace disease and possible mild edema. Endotracheal tube and nasogastric tube unchanged. Left central line in left brachiocephalic vein. Objective Remarks: GENERAL: 67-year-old female currently resting in bed currently orotracheally intubated SKIN: Cool and dry. Tinea cruris, axillary region and under the breasts. Excoriated pannus in back. Purple rash and excoriation bilateral lower extremity HEAD: Atraumatic. Normocephalic. No temporal wasting, or tenderness. EYES: Pupils equal, round and reactive to light. Extraocular movements are present EARS, NOSE AND THROAT: Edentulous. Mucous membranes dry. Orotracheally intubated NECK: Short and obese neck, supple, left IJ is clean dry and intact. CARDIOVASCULAR: Diminished heart sounds. Tachycardic. RR. No murmurs, rubs or gallops heard RESPIRATORY: Diminished breath sounds throughout due to body habitus. No wheezing ABDOMEN: Obese abdomen, soft, with multiple striae and excoriations EXTREMITIES: Positive pedal edema. Has mild mottling both feet. Purple rash and excoriation bilateral lower extremity. Necrotic appearing right third toe. NEUROLOGICAL: Cranial nerves appear to be grossly intact. Positive gag and cough. Spontaneously moves extremities to stimulation. Currently spontaneously opens eyes. She is not following commands currently. Assessment and Plan - Assessment and Plan Plan: NEURO/Psych: Acute severe encephalopathy secondary to severe sepsis/hypercarbia Depression disorder NOS Chronic benzodiazepine use On midazolam drip at 5 mg an hour and fentanyl drip at 100 mcg an hour for sedation. Daily sedation vacation. Goal of RASS -2 CT brain on admission revealed no acute intracranial findings 06/06 EEG, severe encephalopathyepileptiform activity Acetaminophen 650 every 6 hours as needed fever Holding citalopram 20 mg daily/home medication for depression. Resume clinically indicated On lorazepam 0.5 mg at night as needed. Currently on 1 mg every 15 minutes for possible seizure activity? MRI brain revealed no acute intracranial abnormalities RESP: Acute respiratory failure/hypercarbic and hypoxemic Acute COPD exacerbation Probable community-acquired pneumonia On PC/AC RR 18, IP: 32, IT:1.0, PEEP:8, FIO2 45 Ventilator bundle -Albuterol/ipratropium aerosols every 4 hours scheduled and albuterol aerosols every 2 hours as needed Continue IV methylprednisolone succinate 40 mg every 12 Spontaneous breathing trials as clinically indicated CV: Atrial flutter with rapid ventricular response resolved Sinus bradycardia currently sinus tachycardia History of essential hypertension History of dyslipidemia Off all vasopressors -Echo showed EF 50-55% -Monitor HR and BP keep MAP>65mmHg Currently on pravastatin 80 mg daily, hospital substitution for simvastatin 40 mg daily which is her home medication GI: Hypoalbuminemia Cholelithiasis Sigmoid diverticulosis Abdominal wall hernia/left-sided Hypoalbuminemia -on tube feeds with vital 1.5 goal 65 cc an hour. 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 avoid nephrotoxins -Renal ultrasound -right renal cyst otherwise no signs of obstruction. -Nephrology is following, Dr. Narvaez On 12NS@20ml/hr, free water 200ml Q6 ID: UTI Wound cultures positive for MRSA -ID following, continue cefepime and vancomycin per IDs recommendation. Azithromycin discontinued 06/03 ceftaroline discontinued 06/06 Monitor or signs of infections (Fever, WBC) Right 3rd toe and other skin lesions/cellulitis on LLE likely sources of infection Xray foot: There is a destructive change at the distal aspect of the third distal phalanx at the tuft. 0.4 cm calcific density seen at the proximal lateral plantar aspect of the third digit. Podiatry is following, might need right third digit amputation per Podiatry Mupirocin to nares twice daily Pertinent cultures 05/31 -wound culture -MRSA 05/30 -blood cultures 2 -no growth 05/30 -UA -50- 100,000 -s/p Permethrin cream 5% for possible scabies HEME: Thrombocytopenia No indication for transfusion of blood products at this time -Monitor CBC, CMP, coags FEN/ENDO: Diabetes mellitus Hypophosphatemia Holding home medications Metformin 1000 mg twice daily and glipizide at 5 mg twice daily. TSH 0.97 Insulin detemir 24 units BID and SSI with Novolin R q. 6 hour Accu-Cheks Sodium phosphate 50 mmol IV 1 now. Recheck in a.m. MSK: Elevated BMI Necrotic appearing right third toe. Xray foot: There is a destructive change at the distal aspect of the third distal phalanx at the tuft. Podiatry is following, recommend amputation when clinically stable Wt loss encouraged PT evaluate and treat PROPH: -Bilateral lower extremity SCDs. Heparin subcu 5000 units every 8 hours. Lansoprazole 30 mg daily LINES: -Left IJ central line placed 05/31/18 Palliative care is following Level 3 follow-up
--- NOTE | 2018-06-08 14:26 | P.PNPAL ---
Reason for Visit Reason for visit: a. To assist with evaluation and management of symptoms including: pain, dyspnea, weakness b. To assist medical decision maker(s) with: better understanding of current medical conditions; weighing benefits/burdens of medical treatment options; making medical treatment decisions. Subjective Subjective/Interval History: Draft/pending/template Objective Vital Signs: Vital Signs 06/07/18 15:00 06/07/18 15:17 06/07/18 15:48 Temperature Pulse Rate 50 L 53 L Respiratory Rate 18 18 18 Blood Pressure 98/56 L Pulse Oximetry 92 L 95 94 L 06/07/18 16:00 06/07/18 16:01 06/07/18 18:00 Temperature 97.8 F Pulse Rate 49 L 49 L 51 L Respiratory Rate 18 18 Blood Pressure 93/50 L Pulse Oximetry 94 L 95 06/07/18 20:00 06/07/18 20:06 06/07/18 22:00 Temperature 98.7 F Pulse Rate 53 L 47 L Respiratory Rate 18 18 Blood Pressure 102/57 L Pulse Oximetry 93 L 06/07/18 23:25 06/08/18 00:00 06/08/18 02:00 Temperature 98.5 F Pulse Rate 47 L 48 L 63 Respiratory Rate 18 18 Blood Pressure 102/53 L Pulse Oximetry 93 L 93 L 06/08/18 03:37 06/08/18 04:00 06/08/18 04:09 Temperature Pulse Rate 93 H 59 L Respiratory Rate 18 18 18 Blood Pressure 122/59 L Pulse Oximetry 92 L 94 L 06/08/18 06:00 06/08/18 08:00 06/08/18 08:30 Temperature 98.2 F Pulse Rate 57 L 53 L 57 L Respiratory Rate 18 18 Blood Pressure 98/56 L Pulse Oximetry 97 06/08/18 08:33 06/08/18 10:00 06/08/18 11:26 Temperature Pulse Rate 62 Respiratory Rate 18 11 L Blood Pressure Pulse Oximetry 96 92 L 06/08/18 11:34 Temperature Pulse Rate 64 Respiratory Rate 11 L Blood Pressure Pulse Oximetry Intake & Output 06/07/18 06/08/18 06/08/18 18:59 06:59 18:59 Intake Total 1827 / 1827 1930 / 1930 Output Total 1550 / 1550 2925 / 2925 Balance 277 / 277 -995 / -995 Weight 160.2 kg Intake: IV 965 / 965 915 / 915 Versed Inj 50 mg In 50 ml @ 2 100 / 100 50 / 50 MG/HR 2 mls/hr IV.CONT TITRATE PRN Rx#:[id number] Maxipime Inj 2,000 MG In NS Inj 100 / 100 100 / 100 100 ML @ 200 mls/hr IV.SIG Q12H BECKY Rx#:[id number] Vancomycin Inj 1,500 MG In NS 515 / 515 515 / 515 Inj 500 ML @ 250 mls/hr IV.SIG Q18H BECKY Rx#:[id number] fentaNYL 10 mcg/mL Premix Drip 250 / 250 250 / 250 2,500 mcg In 250 ml @ 50 MCG/HR 5 mls/hr IV.SIG TITRATE PRN Rx #:[id number] Tube Feeding 462 / 462 615 / 615 Water Bolus Amount 400 / 400 400 / 400 Output: Urine 1550 / 1550 Stool 0 / 0 Urine Amount (Catheter) 2925 / 2925 Indwelling Urethral Catheter 2925 / 2925 Other: Date of Last Bowel Movement 06/07/18 06/07/18 06/08/18 Physical Exam: CONSTITUTIONAL/GENERAL: morbidly obese female, sedated on vent TUBES/LINES/DRAINS: IJ, rectal bag, gutiérrez, ETtube SKIN: rash left axilla, marked striations left panniculus. 3-4 mm ulceration left pannus. right third toe dusky with nail changes HEAD: Atraumatic. Normocephalic. EYES: pupils constricted. No scleral icterus. Fundi not examined. ENT: Nose without bleeding or purulent drainage. Throat exam limited by ET tube NECK: Trachea midline. Supple, nontender. CARDIOVASCULAR: RRR without murmurs, gallops, or rubs. No JVD. RESPIRATORY/CHEST: course breath sounds, wheezes throughout. Diminished bases GASTROINTESTINAL: Abdomen soft, obese, +hernia. Bowel sounds present. + rectal bag GENITOURINARY: Without palpable bladder distension. Gutiérrez catheter in place. MUSCULOSKELETAL: generalized edema. BUE soft restraints NEUROLOGICAL: opens eyes. sedated on vent PSYCHIATRIC: unable to assess, pt sedated on vent Diagnostic Tests Laboratory: Laboratory Results - last 72 hr 06/05/18 06/05/18 06/06/18 17:09 21:00 00:28 WBC RBC Hgb Hct MCV MCH MCHC RDW Plt Count MPV Neut % (Auto) Lymph % (Auto) [place] % (Auto) Eos % (Auto) Baso % (Auto) Neut # (Auto) Lymph # (Auto) [place] # (Auto) Eos # (Auto) Baso # (Auto) WBC Differential Differential Comment Sodium Potassium 4.5 Chloride Carbon Dioxide Anion Gap BUN Creatinine Estimated GFR POC Glucose 232 H 179 H Random Glucose Lactic Acid Calcium Phosphorus Magnesium Total Bilirubin AST ALT Alkaline Phosphatase Ammonia Total Protein Albumin Urine Color Urine Clarity Urine pH Ur Specific [place] Urine Protein Urine Glucose (UA) Urine Ketones Urine Occult Blood Urine Nitrate Urine Bilirubin Urine Urobilinogen Ur Leukocyte Esterase Urine RBC Urine WBC Ur Squamous Epith Cells Micro UA Comment Urine Culture Comments Vancomycin Trough 06/06/18 06/06/18 06/06/18 03:00 03:00 06:15 WBC 8.1 RBC 5.17 Hgb 14.0 Hct 45.0 MCV 87.0 MCH 27.0 MCHC 31.1 L RDW 16.3 Plt Count 118 L MPV 8.4 Neut % (Auto) 90.7 H Lymph % (Auto) 3.6 L [place] % (Auto) 5.4 Eos % (Auto) 0.2 Baso % (Auto) 0.1 Neut # (Auto) 7.4 Lymph # (Auto) 0.3 L [place] # (Auto) 0.4 Eos # (Auto) 0.0 Baso # (Auto) 0.0 WBC Differential . Differential Comment Auto diff final Sodium 139 Potassium 4.8 Chloride 102 Carbon Dioxide 27.0 Anion Gap 10 BUN 39 H Creatinine 0.90 Estimated GFR 62 L POC Glucose 221 H Random Glucose 218 H Lactic Acid Calcium 8.2 L Phosphorus 1.9 L D Magnesium 2.0 Total Bilirubin 0.5 AST 16 ALT 25 Alkaline Phosphatase 53 Ammonia Total Protein 5.5 L Albumin 2.3 L Urine Color Urine Clarity Urine pH Ur Specific [place] Urine Protein Urine Glucose (UA) Urine Ketones Urine Occult Blood Urine Nitrate Urine Bilirubin Urine Urobilinogen Ur Leukocyte Esterase Urine RBC Urine WBC Ur Squamous Epith Cells Micro UA Comment Urine Culture Comments Vancomycin Trough 06/06/18 06/06/18 06/06/18 08:10 14:00 17:23 WBC RBC Hgb Hct MCV MCH MCHC RDW Plt Count MPV Neut % (Auto) Lymph % (Auto) [place] % (Auto) Eos % (Auto) Baso % (Auto) Neut # (Auto) Lymph # (Auto) [place] # (Auto) Eos # (Auto) Baso # (Auto) WBC Differential Differential Comment Sodium Potassium Chloride Carbon Dioxide Anion Gap BUN Creatinine Estimated GFR POC Glucose 224 H 217 H 265 H Random Glucose Lactic Acid Calcium Phosphorus Magnesium Total Bilirubin AST ALT Alkaline Phosphatase Ammonia Total Protein Albumin Urine Color Urine Clarity Urine pH Ur Specific [place] Urine Protein Urine Glucose (UA) Urine Ketones Urine Occult Blood Urine Nitrate Urine Bilirubin Urine Urobilinogen Ur Leukocyte Esterase Urine RBC Urine WBC Ur Squamous Epith Cells Micro UA Comment Urine Culture Comments Vancomycin Trough 06/06/18 06/06/18 06/06/18 17:45 18:53 23:52 WBC RBC Hgb Hct MCV MCH MCHC RDW Plt Count MPV Neut % (Auto) Lymph % (Auto) [place] % (Auto) Eos % (Auto) Baso % (Auto) Neut # (Auto) Lymph # (Auto) [place] # (Auto) Eos # (Auto) Baso # (Auto) WBC Differential Differential Comment Sodium Potassium Chloride Carbon Dioxide Anion Gap BUN Creatinine Estimated GFR POC Glucose 191 H Random Glucose Lactic Acid Calcium Phosphorus Magnesium Total Bilirubin AST ALT Alkaline Phosphatase Ammonia 18 Total Protein Albumin Urine Color Yellow Urine Clarity Clear Urine pH 7.0 Ur Specific [place] 1.020 Urine Protein 30 H Urine Glucose (UA) 150 H Urine Ketones Negative Urine Occult Blood Negative Urine Nitrate Negative Urine Bilirubin Negative Urine Urobilinogen 2.0 H Ur Leukocyte Esterase Negative Urine RBC 4 H Urine WBC 2 Ur Squamous Epith Cells 1 Micro UA Comment Culture not ind Urine Culture Comments Culture not ind Vancomycin Trough 06/07/18 06/07/18 06/07/18 05:05 05:05 05:08 WBC 8.9 RBC 5.09 Hgb 13.9 Hct 44.3 MCV 87.0 MCH 27.3 MCHC 31.4 L RDW 16.6 Plt Count 117 L MPV 8.4 Neut % (Auto) 83.8 H Lymph % (Auto) 6.3 L [place] % (Auto) 8.3 H Eos % (Auto) 1.5 Baso % (Auto) 0.1 Neut # (Auto) 7.4 Lymph # (Auto) 0.6 L [place] # (Auto) 0.7 Eos # (Auto) 0.1 Baso # (Auto) 0.0 WBC Differential . Differential Comment Auto diff final Sodium 137 Potassium 4.8 Chloride 101 Carbon Dioxide 27.3 Anion Gap 9 BUN 36 H Creatinine 0.78 Estimated GFR 74 L POC Glucose 167 H Random Glucose 172 H Lactic Acid Calcium 8.3 L Phosphorus Magnesium Total Bilirubin 0.5 AST 15 ALT 32 Alkaline Phosphatase 56 Ammonia Total Protein 5.4 L Albumin 2.2 L Urine Color Urine Clarity Urine pH Ur Specific [place] Urine Protein Urine Glucose (UA) Urine Ketones Urine Occult Blood Urine Nitrate Urine Bilirubin Urine Urobilinogen Ur Leukocyte Esterase Urine RBC Urine WBC Ur Squamous Epith Cells Micro UA Comment Urine Culture Comments Vancomycin Trough 06/07/18 06/07/18 06/07/18 11:02 14:30 17:18 WBC RBC Hgb Hct MCV MCH MCHC RDW Plt Count MPV Neut % (Auto) Lymph % (Auto) [place] % (Auto) Eos % (Auto) Baso % (Auto) Neut # (Auto) Lymph # (Auto) [place] # (Auto) Eos # (Auto) Baso # (Auto) WBC Differential Differential Comment Sodium Potassium Chloride Carbon Dioxide Anion Gap BUN Creatinine Estimated GFR POC Glucose 172 H 177 H Random Glucose Lactic Acid Calcium Phosphorus 3.5 D Magnesium Total Bilirubin AST ALT Alkaline Phosphatase Ammonia Total Protein Albumin Urine Color Urine Clarity Urine pH Ur Specific [place] Urine Protein Urine Glucose (UA) Urine Ketones Urine Occult Blood Urine Nitrate Urine Bilirubin Urine Urobilinogen Ur Leukocyte Esterase Urine RBC Urine WBC Ur Squamous Epith Cells Micro UA Comment Urine Culture Comments Vancomycin Trough 06/08/18 06/08/18 06/08/18 00:59 02:23 02:23 WBC 7.9 RBC 5.16 Hgb 14.0 Hct 44.8 MCV 86.7 MCH 27.1 MCHC 31.3 L RDW 16.6 Plt Count 120 L MPV 8.4 Neut % (Auto) 82.1 H Lymph % (Auto) 8.9 L [place] % (Auto) 7.3 Eos % (Auto) 1.3 Baso % (Auto) 0.4 Neut # (Auto) 6.5 Lymph # (Auto) 0.7 L [place] # (Auto) 0.6 Eos # (Auto) 0.1 Baso # (Auto) 0.0 WBC Differential . Differential Comment Auto diff final Sodium 139 Potassium 4.4 Chloride 104 Carbon Dioxide 28.0 Anion Gap 7 BUN 35 H Creatinine 0.77 Estimated GFR 75 L POC Glucose 158 H Random Glucose 136 H Lactic Acid Calcium 8.0 L Phosphorus 2.4 L D Magnesium 1.9 Total Bilirubin 0.5 AST 13 L ALT 33 Alkaline Phosphatase 57 Ammonia Total Protein 5.5 L Albumin 2.4 L Urine Color Urine Clarity Urine pH Ur Specific [place] Urine Protein Urine Glucose (UA) Urine Ketones Urine Occult Blood Urine Nitrate Urine Bilirubin Urine Urobilinogen Ur Leukocyte Esterase Urine RBC Urine WBC Ur Squamous Epith Cells Micro UA Comment Urine Culture Comments Vancomycin Trough 10.9 H 06/08/18 06/08/18 06:50 13:08 WBC RBC Hgb Hct MCV MCH MCHC RDW Plt Count MPV Neut % (Auto) Lymph % (Auto) [place] % (Auto) Eos % (Auto) Baso % (Auto) Neut # (Auto) Lymph # (Auto) [place] # (Auto) Eos # (Auto) Baso # (Auto) WBC Differential Differential Comment Sodium Potassium Chloride Carbon Dioxide Anion Gap BUN Creatinine Estimated GFR POC Glucose 168 H Random Glucose Lactic Acid 1.5 Calcium Phosphorus Magnesium Total Bilirubin AST ALT Alkaline Phosphatase Ammonia Total Protein Albumin Urine Color Urine Clarity Urine pH Ur Specific [place] Urine Protein Urine Glucose (UA) Urine Ketones Urine Occult Blood Urine Nitrate Urine Bilirubin Urine Urobilinogen Ur Leukocyte Esterase Urine RBC Urine WBC Ur Squamous Epith Cells Micro UA Comment Urine Culture Comments Vancomycin Trough Result Diagrams: 06/08/18 02:23 06/08/18 02:23 Procedures: 10 intubated 05/31 IJ placed Assessment and Plan - Disease Oriented Problem List (1) Respiratory failure (2) Sepsis secondary to UTI (3) COPD exacerbation (4) Acute kidney injury (5) Acute UTI (urinary tract infection) (6) SVT (supraventricular tachycardia) Pertinent Non-Medical Issues: Psychosocial: 3 months ago moved from [place] to [place]. Lives at home with son Shad, daughter Yissel "Nallely" and Shad's . Shad and his take care of pt. She is originally from . She worked at [employer] for 14 years. She was but her 2 years ago. Spiritual: per son she identified with no particular mosque Legal: pt incapacitated to make decisions at this time. It is not clear if she will regain that capacity. [place] statutes medical decision making would fall to the majority of her 6 children. Ethical issues impacting care: none identified Important Contacts: Son Shad (local) [phone] (local "emergency contact" spokesperson per the other children) Daughter Yissel Sanchez" (local) [phone] [place] Children: Adrian Scott [phone] Adarsh "SARAI" Tyler [phone] Sarwat Osborne (incarcerated) - [place], [place] POC Captain Hanley, Prognosis: 67 yo morbidly obese female with hx tobacco abuse, diabetes who presented with progressive weakness and was found to be septic with SUNIL, UTI. She developed respiratory distress and was intubated. Her kidney function has improved somewhat. Her underlying morbid obesity may significantly impair her ability to recover from a respiratory standpoint, as will her likely underlying COPD. Prior she was mostly sedentary and unable to care for herself; much of that burden had fallen to her son who admittedly is quite overwhelmed. If she requires ventilatory support beyond another week, she will require tracheostomy and feeding tube. Should she recover enough to be extubated, she will need placement in a nursing facility. Her numerous comorbidities and poor prior health status put her at significant risk for continued complications and decline. Code Status: Alternative Code (intubation only) Plan: * LEGAL DECISION MAKER - pt incapacitated to make decisions at this time. It is not clear if she will regain that capacity. [place] medical decision making would fall to the majority of her 5 children. Thus far 4 of 5 are participating. contact has not yet been made with Adrian. * GOALS - The children are making an effort to work together. They appoint Shad local emergency spokesperson. They acknowledge that she was knowingly "killing herself" and seem to all be in agreement that "she didn't want to suffer like her [their father]." At this point they did not indicate that they would definitely want trach & PEG. * CODE STATUS - alternative code, intubation only * SYMPTOMS - * dyspnea - multifactorial. intubated 05/31 after change in mental status. reported hx ANIVAL untreated, COPD, heavy tobacco use, ?pickwick syndrome, +atrial flutter with RVR. ID feels respiratory issues 2/2 COPD exacerbation in obese smoker. Currently sedated on vent, PEEP 8, pressure 18. Has scheduled duonebs which per RT are not helping, midazolam drip increased to 5 ml/hr, steroid taper * pain - multifactorial 2/2 multiples lines, catheter, discomfort from ET tube. Appears comfortable on my eval. Has fentanyl drip rate 10ml/hr * weakness/debility - 2/2 morbid obesity, sedentary lifestyle and subsequent deconditioning, sepsis. Was having lower extremity weakness for prior 3 weeks and on admission was unable to get up. PT following. * Palliative care will continue to follow as hospital course evolves to assist pt/decision makers weight benefits and burdens of treatment options, and assist with symptoms of palliative concern
--- NOTE | 2018-06-08 16:30 | P.PNPAL ---
Reason for Visit Reason for visit: a. To assist with evaluation and management of symptoms including: pain, dyspnea, weakness b. To assist medical decision maker(s) with: better understanding of current medical conditions; weighing benefits/burdens of medical treatment options; making medical treatment decisions. Subjective Subjective/Interval History: Pt seen today to follow up on comfort, goals with family/update to family to assist with medical decision making. (seen at 1300) She remains in icu on mech vent. CPAP trial this am, she is tolerating CPAP trial for couple hours this am--PSV 20/PEEP8/45% fio2. Tolerating TF. Having BMs. CXR =No significant change in bilateral mostly basilar and dependent airspace disease and possible mild edema. Endotracheal tube and nasogastric tube unchanged. Left central line in left brachiocephalic vein. Patient seen in room no visitors present. She is awake on CPAP. Eyes are open , though does not track examiner. Does follow simple commands very weakly moves toes, very weakly grasps and moves hands. She does not follow more complex commands. No apparent distress. No tachypnea. Following exam call to son Shad to provide an update he indicates he is here in the hospital, met with him at patient bedside. Daughter Yissel also present. Review with him our discussion from conference call on Wednesday. Review patient's current clinical assessment and course in the past couple of days. Review possible trajectory and possibility that she will require tracheostomy. Reviewed that ventilator CPAP weaning trials will continue though not clear at this time she will be able to medically extubate. Shad endorses that the family has been talking further and that at this time they think that they might proceed with a tracheostomy, as patient had one and another family member had one and patient never voiced any particular objections to this. They feel she may find this acceptable. They are open to ongoing conversations and discussions regarding as tracheostomy decision gets closer, and clinical course evolves. Objective Vital Signs: Vital Signs 06/07/18 18:00 06/07/18 20:00 06/07/18 20:06 Temperature 98.7 F Pulse Rate 51 L 53 L Respiratory Rate 18 18 Blood Pressure 102/57 L Pulse Oximetry 93 L 06/07/18 22:00 06/07/18 23:25 06/08/18 00:00 Temperature 98.5 F Pulse Rate 47 L 47 L 48 L Respiratory Rate 18 18 Blood Pressure 102/53 L Pulse Oximetry 93 L 93 L 06/08/18 02:00 06/08/18 03:37 06/08/18 04:00 Temperature Pulse Rate 63 93 H 59 L Respiratory Rate 18 18 Blood Pressure 122/59 L Pulse Oximetry 92 L 06/08/18 04:09 06/08/18 06:00 06/08/18 08:00 Temperature 98.2 F Pulse Rate 57 L 53 L Respiratory Rate 18 18 Blood Pressure 98/56 L Pulse Oximetry 94 L 97 06/08/18 08:30 06/08/18 08:33 06/08/18 10:00 Temperature Pulse Rate 57 L 62 Respiratory Rate 18 18 Blood Pressure Pulse Oximetry 96 06/08/18 11:26 06/08/18 11:34 Temperature Pulse Rate 64 Respiratory Rate 11 L 11 L Blood Pressure Pulse Oximetry 92 L Intake & Output 06/07/18 06/08/18 06/08/18 18:59 06:59 18:59 Intake Total 1827 / 1827 1930 / 1930 150 / 150 Output Total 1550 / 1550 2925 / 2925 Balance 277 / 277 -995 / -995 150 / 150 Weight 160.2 kg Intake: IV 965 / 965 915 / 915 150 / 150 Versed Inj 50 mg In 50 ml @ 2 100 / 100 50 / 50 50 / 50 MG/HR 2 mls/hr IV.CONT TITRATE PRN Rx#:[id number] Maxipime Inj 2,000 MG In NS Inj 100 / 100 100 / 100 100 / 100 100 ML @ 200 mls/hr IV.SIG Q12H BECKY Rx#:[id number] Vancomycin Inj 1,500 MG In NS 515 / 515 515 / 515 Inj 500 ML @ 250 mls/hr IV.SIG Q18H BECKY Rx#:[id number] fentaNYL 10 mcg/mL Premix Drip 250 / 250 250 / 250 2,500 mcg In 250 ml @ 50 MCG/HR 5 mls/hr IV.SIG TITRATE PRN Rx #:[id number] Tube Feeding 462 / 462 615 / 615 Water Bolus Amount 400 / 400 400 / 400 Output: Urine 1550 / 1550 Stool 0 / 0 Urine Amount (Catheter) 2925 / 2925 Indwelling Urethral Catheter 2925 / 2925 Other: Date of Last Bowel Movement 06/07/18 06/07/18 06/08/18 Physical Exam: CONSTITUTIONAL/GENERAL: morbidly obese female, sedated on vent TUBES/LINES/DRAINS: IJ, rectal bag, gutiérrez, ETtube, soft restraints upper extremities, OG tube SKIN: Very pale. Rash left axilla, marked striations left panniculus. 3-4 mm ulceration left pannus. right third toe dusky with nail changes EYES: pupils 3 mm, reactive to light. No scleral icterus. Fundi not examined. ENT: Nose without bleeding or purulent drainage. Throat exam limited by ET tube CARDIOVASCULAR: RRR without murmurs. No JVD. Generalized peripheral edema. RESPIRATORY/CHEST: Respirations even and unlabored via ET tube to mechanical vent. Course breath sounds, diminished air movement. Expiratory wheezing right upper. GASTROINTESTINAL: Abdomen soft, obese, +hernia. Bowel sounds present. + rectal bag, + tube feed infusing via OG tube GENITOURINARY: Without palpable bladder distension. Gutiérrez catheter in place. MUSCULOSKELETAL: generalized edema. BUE soft restraints NEUROLOGICAL: opens eyes. Does not track examiner. Follows simple commands very weakly moves hands, very weakly moves toes. Does not follow more complex commands. PSYCHIATRIC: No apparent anxiety, limited assessment due to clinical condition Diagnostic Tests Laboratory: Laboratory Results - last 72 hr 06/05/18 06/05/18 06/06/18 17:09 21:00 00:28 WBC RBC Hgb Hct MCV MCH MCHC RDW Plt Count MPV Neut % (Auto) Lymph % (Auto) Emmet % (Auto) Eos % (Auto) Baso % (Auto) Neut # (Auto) Lymph # (Auto) Emmet # (Auto) Eos # (Auto) Baso # (Auto) WBC Differential Differential Comment Sodium Potassium 4.5 Chloride Carbon Dioxide Anion Gap BUN Creatinine Estimated GFR POC Glucose 232 H 179 H Random Glucose Lactic Acid Calcium Phosphorus Magnesium Total Bilirubin AST ALT Alkaline Phosphatase Ammonia Total Protein Albumin Urine Color Urine Clarity Urine pH Ur Specific [place] Urine Protein Urine Glucose (UA) Urine Ketones Urine Occult Blood Urine Nitrate Urine Bilirubin Urine Urobilinogen Ur Leukocyte Esterase Urine RBC Urine WBC Ur Squamous Epith Cells Micro UA Comment Urine Culture Comments Vancomycin Trough 06/06/18 06/06/18 06/06/18 03:00 03:00 06:15 WBC 8.1 RBC 5.17 Hgb 14.0 Hct 45.0 MCV 87.0 MCH 27.0 MCHC 31.1 L RDW 16.3 Plt Count 118 L MPV 8.4 Neut % (Auto) 90.7 H Lymph % (Auto) 3.6 L Emmet % (Auto) 5.4 Eos % (Auto) 0.2 Baso % (Auto) 0.1 Neut # (Auto) 7.4 Lymph # (Auto) 0.3 L Emmet # (Auto) 0.4 Eos # (Auto) 0.0 Baso # (Auto) 0.0 WBC Differential . Differential Comment Auto diff final Sodium 139 Potassium 4.8 Chloride 102 Carbon Dioxide 27.0 Anion Gap 10 BUN 39 H Creatinine 0.90 Estimated GFR 62 L POC Glucose 221 H Random Glucose 218 H Lactic Acid Calcium 8.2 L Phosphorus 1.9 L D Magnesium 2.0 Total Bilirubin 0.5 AST 16 ALT 25 Alkaline Phosphatase 53 Ammonia Total Protein 5.5 L Albumin 2.3 L Urine Color Urine Clarity Urine pH Ur Specific [place] Urine Protein Urine Glucose (UA) Urine Ketones Urine Occult Blood Urine Nitrate Urine Bilirubin Urine Urobilinogen Ur Leukocyte Esterase Urine RBC Urine WBC Ur Squamous Epith Cells Micro UA Comment Urine Culture Comments Vancomycin Trough 06/06/18 06/06/18 06/06/18 08:10 14:00 17:23 WBC RBC Hgb Hct MCV MCH MCHC RDW Plt Count MPV Neut % (Auto) Lymph % (Auto) Emmet % (Auto) Eos % (Auto) Baso % (Auto) Neut # (Auto) Lymph # (Auto) Emmet # (Auto) Eos # (Auto) Baso # (Auto) WBC Differential Differential Comment Sodium Potassium Chloride Carbon Dioxide Anion Gap BUN Creatinine Estimated GFR POC Glucose 224 H 217 H 265 H Random Glucose Lactic Acid Calcium Phosphorus Magnesium Total Bilirubin AST ALT Alkaline Phosphatase Ammonia Total Protein Albumin Urine Color Urine Clarity Urine pH Ur Specific [place] Urine Protein Urine Glucose (UA) Urine Ketones Urine Occult Blood Urine Nitrate Urine Bilirubin Urine Urobilinogen Ur Leukocyte Esterase Urine RBC Urine WBC Ur Squamous Epith Cells Micro UA Comment Urine Culture Comments Vancomycin Trough 06/06/18 06/06/18 06/06/18 17:45 18:53 23:52 WBC RBC Hgb Hct MCV MCH MCHC RDW Plt Count MPV Neut % (Auto) Lymph % (Auto) Emmet % (Auto) Eos % (Auto) Baso % (Auto) Neut # (Auto) Lymph # (Auto) Emmet # (Auto) Eos # (Auto) Baso # (Auto) WBC Differential Differential Comment Sodium Potassium Chloride Carbon Dioxide Anion Gap BUN Creatinine Estimated GFR POC Glucose 191 H Random Glucose Lactic Acid Calcium Phosphorus Magnesium Total Bilirubin AST ALT Alkaline Phosphatase Ammonia 18 Total Protein Albumin Urine Color Yellow Urine Clarity Clear Urine pH 7.0 Ur Specific [place] 1.020 Urine Protein 30 H Urine Glucose (UA) 150 H Urine Ketones Negative Urine Occult Blood Negative Urine Nitrate Negative Urine Bilirubin Negative Urine Urobilinogen 2.0 H Ur Leukocyte Esterase Negative Urine RBC 4 H Urine WBC 2 Ur Squamous Epith Cells 1 Micro UA Comment Culture not ind Urine Culture Comments Culture not ind Vancomycin Trough 06/07/18 06/07/18 06/07/18 05:05 05:05 05:08 WBC 8.9 RBC 5.09 Hgb 13.9 Hct 44.3 MCV 87.0 MCH 27.3 MCHC 31.4 L RDW 16.6 Plt Count 117 L MPV 8.4 Neut % (Auto) 83.8 H Lymph % (Auto) 6.3 L Emmet % (Auto) 8.3 H Eos % (Auto) 1.5 Baso % (Auto) 0.1 Neut # (Auto) 7.4 Lymph # (Auto) 0.6 L Emmet # (Auto) 0.7 Eos # (Auto) 0.1 Baso # (Auto) 0.0 WBC Differential . Differential Comment Auto diff final Sodium 137 Potassium 4.8 Chloride 101 Carbon Dioxide 27.3 Anion Gap 9 BUN 36 H Creatinine 0.78 Estimated GFR 74 L POC Glucose 167 H Random Glucose 172 H Lactic Acid Calcium 8.3 L Phosphorus Magnesium Total Bilirubin 0.5 AST 15 ALT 32 Alkaline Phosphatase 56 Ammonia Total Protein 5.4 L Albumin 2.2 L Urine Color Urine Clarity Urine pH Ur Specific [place] Urine Protein Urine Glucose (UA) Urine Ketones Urine Occult Blood Urine Nitrate Urine Bilirubin Urine Urobilinogen Ur Leukocyte Esterase Urine RBC Urine WBC Ur Squamous Epith Cells Micro UA Comment Urine Culture Comments Vancomycin Trough 06/07/18 06/07/18 06/07/18 11:02 14:30 17:18 WBC RBC Hgb Hct MCV MCH MCHC RDW Plt Count MPV Neut % (Auto) Lymph % (Auto) Emmet % (Auto) Eos % (Auto) Baso % (Auto) Neut # (Auto) Lymph # (Auto) Emmet # (Auto) Eos # (Auto) Baso # (Auto) WBC Differential Differential Comment Sodium Potassium Chloride Carbon Dioxide Anion Gap BUN Creatinine Estimated GFR POC Glucose 172 H 177 H Random Glucose Lactic Acid Calcium Phosphorus 3.5 D Magnesium Total Bilirubin AST ALT Alkaline Phosphatase Ammonia Total Protein Albumin Urine Color Urine Clarity Urine pH Ur Specific [place] Urine Protein Urine Glucose (UA) Urine Ketones Urine Occult Blood Urine Nitrate Urine Bilirubin Urine Urobilinogen Ur Leukocyte Esterase Urine RBC Urine WBC Ur Squamous Epith Cells Micro UA Comment Urine Culture Comments Vancomycin Trough 06/08/18 06/08/18 06/08/18 00:59 02:23 02:23 WBC 7.9 RBC 5.16 Hgb 14.0 Hct 44.8 MCV 86.7 MCH 27.1 MCHC 31.3 L RDW 16.6 Plt Count 120 L MPV 8.4 Neut % (Auto) 82.1 H Lymph % (Auto) 8.9 L Emmet % (Auto) 7.3 Eos % (Auto) 1.3 Baso % (Auto) 0.4 Neut # (Auto) 6.5 Lymph # (Auto) 0.7 L Emmet # (Auto) 0.6 Eos # (Auto) 0.1 Baso # (Auto) 0.0 WBC Differential . Differential Comment Auto diff final Sodium 139 Potassium 4.4 Chloride 104 Carbon Dioxide 28.0 Anion Gap 7 BUN 35 H Creatinine 0.77 Estimated GFR 75 L POC Glucose 158 H Random Glucose 136 H Lactic Acid Calcium 8.0 L Phosphorus 2.4 L D Magnesium 1.9 Total Bilirubin 0.5 AST 13 L ALT 33 Alkaline Phosphatase 57 Ammonia Total Protein 5.5 L Albumin 2.4 L Urine Color Urine Clarity Urine pH Ur Specific [place] Urine Protein Urine Glucose (UA) Urine Ketones Urine Occult Blood Urine Nitrate Urine Bilirubin Urine Urobilinogen Ur Leukocyte Esterase Urine RBC Urine WBC Ur Squamous Epith Cells Micro UA Comment Urine Culture Comments Vancomycin Trough 10.9 H 06/08/18 06/08/18 06/08/18 06:50 13:08 15:34 WBC RBC Hgb Hct MCV MCH MCHC RDW Plt Count MPV Neut % (Auto) Lymph % (Auto) Emmet % (Auto) Eos % (Auto) Baso % (Auto) Neut # (Auto) Lymph # (Auto) Emmet # (Auto) Eos # (Auto) Baso # (Auto) WBC Differential Differential Comment Sodium Potassium Chloride Carbon Dioxide Anion Gap BUN Creatinine Estimated GFR POC Glucose 168 H 289 H Random Glucose Lactic Acid 1.5 Calcium Phosphorus Magnesium Total Bilirubin AST ALT Alkaline Phosphatase Ammonia Total Protein Albumin Urine Color Urine Clarity Urine pH Ur Specific [place] Urine Protein Urine Glucose (UA) Urine Ketones Urine Occult Blood Urine Nitrate Urine Bilirubin Urine Urobilinogen Ur Leukocyte Esterase Urine RBC Urine WBC Ur Squamous Epith Cells Micro UA Comment Urine Culture Comments Vancomycin Trough Result Diagrams: 06/18/18 05:45 06/18/18 05:45 Imaging: Impressions Head MRI 06/07/18 00:00 CONCLUSION: 1. Senescent changes with mild periventricular ischemic white matter demyelination. 2. Otherwise, unremarkable MRI examination of the brain. Specifically, no evidence for acute infarction. 3. Paranasal sinus disease. Chest X-Ray 06/08/18 06:00 CONCLUSION: No significant change in bilateral mostly basilar and dependent airspace disease and possible mild edema. Endotracheal tube and nasogastric tube unchanged. Left central line in left brachiocephalic vein. Procedures: 05/31 intubated 05/31 IJ placed Assessment and Plan Pertinent Non-Medical Issues: Psychosocial: 3 months ago moved from [place] to [place]. Lives at home with son Shad, john Sanchez" and Shad's . Shad and his take care of pt. She is originally from . She worked at [employer] for 14 years. She was but her 2 years ago. Spiritual: per son she identified with no particular mormonism Legal: pt incapacitated to make decisions at this time. It is not clear if she will regain that capacity. [place] statutes medical decision making would fall to the majority of her 6 children. Ethical issues impacting care: none identified Important Contacts: Son Shad (local) [phone] (local "emergency contact" spokesperson per the other children) Daughter Yissel "Nallely" (local) [phone] [place] Children: Adrian Scott [phone] Adarsh "SARAI" Tyler [phone] Sarwat Osborne (incarcerated) - [place], [place] POC Captain Hanley, Prognosis: 67 yo morbidly obese female with hx tobacco abuse, diabetes who presented with progressive weakness and was found to be septic with SUNIL, UTI. She developed respiratory distress and was intubated. Her kidney function has improved somewhat. Her underlying morbid obesity may significantly impair her ability to recover from a respiratory standpoint, as will her likely underlying COPD. Prior she was mostly sedentary and unable to care for herself; much of that burden had fallen to her son who admittedly is quite overwhelmed. If she requires ventilatory support beyond another week, she will require tracheostomy and feeding tube. Should she recover enough to be extubated, she will need placement in a nursing facility. Her numerous comorbidities and poor prior health status put her at significant risk for continued complications and decline. Code Status: Alternative Code (intubation only) Plan: * LEGAL DECISION MAKER - pt incapacitated to make decisions at this time. It is not clear if she will regain that capacity. [place] medical decision making would fall to the majority of her 5 children. Thus far 4 of 5 are participating. contact has not yet been made with Adrian. * GOALS - The children are making an effort to work together. They appoint Shad local emergency spokesperson. They acknowledge that she was knowingly "killing herself" and seem to all be in agreement that "she didn't want to suffer like her [their father]." During prior interactions indicated patient would probably not want a tracheostomy. However today 06/08 in conversation with Shad he indicates they have been speaking further, and that she might actually not object to a trach, that her had one and another voiced any. They are open to ongoing conversations as clinical course evolves, and as tracheostomy decision grows closer. Advised that likely by this / Wednesday tracheostomy would be planned if she is not looking like will be able to medically extubate. * CODE STATUS - alternative code, intubation only * SYMPTOMS - * dyspnea - multifactorial. intubated 05/31 after change in mental status. reported hx ANIVAL untreated, COPD, heavy tobacco use, ?pickwick syndrome, +atrial flutter with RVR. ID feels respiratory issues 2/2 COPD exacerbation in obese smoker. Sedation lightened, on CPAP trial for short time today PS 20, PEEP 8, FiO2 45%. No dyspnea observed. Has scheduled duonebs, steroid taper * pain - multifactorial 2/2 multiples lines, catheter, discomfort from ET tube. Appears comfortable on my eval. Has fentanyl drip --sedation lightened/ held for CPAP trial * weakness/debility - 2/2 morbid obesity, sedentary lifestyle and subsequent deconditioning, sepsis. Was having lower extremity weakness for prior 3 weeks and on admission was unable to get up. PT following. * Palliative care will continue to follow as hospital course evolves to assist pt/decision makers weight benefits and burdens of treatment options, and assist with symptoms of palliative concern Time Spent Total Floor Time (mins): 25 (Chart review, PE, discussion with nursing, discussion with family) Attestation Collaborating MD Comments: Chart reviewed. Case discussed with palliative care nurse practitioner. Above [employer] note reviewed and I concur. . Attestation: To help prompt me to consider important information that might be impacting today's encounter and assessment, information from prior notes written by myself or my colleagues may have been "brought forward" into today's note. My signature on this note, however, is an attestation that I personally performed the exam, history, and/or decision-making noted today, and, unless otherwise indicated, the interactions with patient, family, and staff as well as the review of records all occurred today. I also attest that the listed assessment and stated plan reflect my best clinical judgment today based on the combination of historical information, prior notes, and today's exam/ interactions. When time spent is documented, it refers only to time spent today by the signer, or if indicated, combined time spent today by collaborating physician/nurse practitioner.
[2018-06-08] MEDS: Hypromellose 0.3% Opth Gel 10 GM Bottle EACH EYE SCH (21:43)
[2018-06-09] MEDS: Oral Hygiene Kit OROPHARYNG SCH ×4 (00:09→15:26)
[2018-06-09] MEDS: Insulin NovoLIN Regular Correctional Sugar Inj SQ SCH ×4 (00:10→17:01)
[2018-06-09] MEDS: Heparin - SQ 10,000 UNITS/ML Vial SQ SCH ×3 (02:42→18:09)
[2018-06-09] MEDS: fentaNYL 10 mcg/mL Premix Drip 2,500 MCG/250 ML BAG IV.SIG PRN (02:43)
[2018-06-09] MEDS: Midazolam 50 MG/50 ML Inj 50 MG/50 ML BAG IV.CONT PRN (04:32)
[2018-06-09 04:36] LABS: Eos % (Auto) 0.6 % (0.0-4.0); Hematocrit 43.8 % (35.0-46.0); Hemoglobin 13.6 gm/dL (11.6-15.3); Lymph # (Auto) 0.4 th/mm3 (1.0-4.8); Lymph % (Auto) 5.5 % (9.0-44.0); Mean Corpuscular HGB Conc 31.1 % (32.0-36.0); Mean Corpuscular Hemoglobin 27.3 pg (27.0-34.0); Mean Corpuscular Volume 87.9 fL (80.0-100.0); Mean Platelet Volume 8.9 fL (7.0-11.0); Mono # (Auto) 0.6 th/mm3 (0.0-0.9); Mono % (Auto) 7.6 % (0.0-8.0); Neut # (Auto) 6.4 th/mm3 (1.8-7.7); Neut % (Auto) 86.3 % (16.0-70.0); Platelet Count 128 th/mm3 (150-450); Red Blood Count 4.98 mil/mm3 (4.00-5.30); Red Cell Distribution Width 16.6 % (11.6-17.2); White Blood Count 7.4 th/mm3 (4.0-11.0)
--- NOTE | 2018-06-09 04:46 | XR ---
EXAM DATE: 06/09/2018 4:10 AM EDT AGE/SEX: 67 years / Female INDICATIONS: . Short of breath. CLINICAL DATA: This is the patient's subsequent encounter. Patient reports that signs and symptoms h ave been present for 1 week and indicates a pain score of 0/10. MEDICAL/SURGICAL HISTORY: . Hypertension. Depression. Diabetes. Hypertriglyceridemia None. COMPARISON: [facility], CHEST 1V SINGLE AP, 06/08/2018. . FINDINGS: Endotracheal tube in good position. NG enters stomach. Bilateral ill-defined airspace disease similar to prior exam. Cardiomegaly. Probable effusions. CONCLUSION: Stable bilateral airspace disease and pleural effusions. Endotracheal tube and nasogastric tube uncha nged. Electronically signed by: Sloan Adler MD 06/09/2018 4:45 AM EDT
[2018-06-09 04:53] LABS: Alanine Aminotransferase 30 U/L (10-53); Albumin 2.2 g/dL (3.4-5.0); Alkaline Phosphatase 57 U/L (45-117); Anion Gap 4 meq/L (5-15); Aspartate Aminotransferase 8 U/L (15-37); Blood Urea Nitrogen 31 mg/dL (7-18); Calcium 7.9 mg/dL (8.5-10.1); Carbon Dioxide 30.6 meq/L (21.0-32.0); Chloride 103 meq/L (98-107); Glomerular Filtration Rate 77 mL/min (>89); Glucose,Random 258 mg/dL (74-106); Magnesium 1.9 mg/dL (1.5-2.5); Phosphorus 2.8 mg/dL (2.5-4.9); Potassium 4.6 meq/L (3.5-5.1); Sodium 138 meq/L (136-145); Total Protein 5.5 g/dL (6.4-8.2)
[2018-06-09] MEDS ORDERED: Dexmedetomidine Inj 200 MCG in Sodium Chlor 0.9% Inj 48 ML IV.CONT PRN ×2 (05:06→21:17)
[2018-06-09] MEDS: Dexmedetomidine Inj 1,000 MCG in Sodium Chlor 0.9% Inj 240 ML IV.CONT PRN ×2 (05:58→22:00)
[2018-06-09] MEDS: Vancomycin Inj 1,500 MG in Sodium Chlor 0.9% Inj 500 ML IV.SIG SCH ×2 (05:59→17:43)
[2018-06-09] MEDS: Chlorhexidine 0.12% Oral Kit 15 ML UDC OROPHARYNG SCH ×2 (09:29→20:38)
[2018-06-09] MEDS: MethylPREDNISolone Sod Succinate Inj 40 MG/ML Vial IV.PUSH SCH (09:29)
[2018-06-09] MEDS: Insulin Detemir Inj 1,000 UNIT/10 ML Vial SQ SCH ×2 (09:29→20:36)
[2018-06-09] MEDS: Mupirocin 2% Nasal Oint Topical Syringe EACH NARE SCH ×2 (09:29→20:38)
[2018-06-09] MEDS: Senna/Docusate Sodium 8.6/50 MG Tablet PO SCH ×2 (09:29→20:37)
--- NOTE | 2018-06-09 14:43 | P.PNCC ---
Subjective Subjective Remarks/Hospital Course: Mrs. Scott is a 67-year-old female with past medical history significant for morbid obesity, type 2 diabetes, hypertension, probable COPD who was brought in by the family yesterday night because of increasing weakness and lethargic, this was ongoing for last 2 weeks got worse over the last 2 days. Unable to get detailed history from patient due to lethargy. ER workup showed patient had a urinary tract infection and sepsis, also chest x-ray showed bilateral interstitial infiltrates, and LLL consolidation. There is also evidence of acute kidney injury with creatinine up to 2.59, BUN 89. Intermittently having tachyarrhythmia/atrial flutter with rate in in 130s. Patient was admitted to the hospital service. At the time of hospitalist (Dr. Mckeon) evaluation patient was very lethargic and ABG showed a pH of 7.08 and a PCO2 of 91, PO2 was 70 on 5 L nasal cannula. Patient was immediately placed on BiPAP. Approximately after 45 minutes ABG was repeat showed only marginal improvement pH of 7.12 and PCO2 of 84. Patient was emergently transferred to the ICU and critical care was consulted I evaluated the patient in the ICU. She is currently on BiPAP 15/. Patient is lethargic, even though arousable she falls right back to sleep. Airway protection was questionable. With severe hypercarbic respiratory failure complicated with sepsis, metabolic encephalopathy and acute kidney failure, decision was made to intubate the patient. I endotracheally intubate the patient in placed on the mechanical ventilation. Prior to and post intubation patient heart rate remained in 130s. Hypotensive postintubation, stat 2 L fluid boluses given. Also started on Levophed to keep map above 65. Patient had been placed on Rocephin and will discontinue this and start renally dosed cefepime, add azithromycin for atypical coverage. ID consulted for questionable scabies and sepsis with shock 06/02: Remains critically ill but stabilizing more. ABG shows correction of severe hypercapnia. FiO2 remains at 50%. Urine output adequate BUN remains elevated creatinine slightly improved. Received treatment with permethrin 06/02: Currently afebrile. Bradycardic on the ventilator. Will adjust sedation to midazolam and fentanyl drips. Tolerating tube feeds at 30 cc an hour. XRT of the right foot ordered. 06/03 No events overnight. Sedated with Versed and Fentanyl drips. Afebrile. 06/04: Remains on midazolam drip at 4 mg an hour and fentanyl drip at 100 mcg an hour. Tolerating tube feeds. Currently afebrile. Failed spontaneous breathing trials today. 06/05: Ventilator settings unchanged. Remains on midazolam drip at 5 mg an hour and fentanyl drip at 100 mcg an hour. Tolerating tube feeds. We will reattempt spontaneous breathing trials today. 06/06 Patient is sedated with Fentanyl and versed drips and intubated. Afebrile. 06/07: Afebrile. Remains on midazolam drip at 5 mg an hour and fentanyl drip at 100 mcg an hour. MRI brain revealed no acute intracranial findings. Opens eyes. Not following commands currently. 06/08: Afebrile. Remains on midazolam drip. Opens eyes but not following commands currently. Tolerating tube feeds at goal. Positive BM. Subjective 06/09: Tolerated CPAP trials 8 hours yesterday. Not tolerating today. Opens eyes but not follows commands. Tube feeds at goal. Positive BM. Remains on midazolam and fentanyl drips. Objective Vital Signs / I&O: Vital Signs 06/08/18 15:00 06/08/18 16:00 06/08/18 16:01 Temperature 98 F Pulse Rate 76 61 64 Respiratory Rate 16 12 12 Blood Pressure 118/66 88/50 L Pulse Oximetry 92 L 94 L 94 L 06/08/18 16:14 06/08/18 16:17 06/08/18 17:00 Temperature Pulse Rate 59 L 60 Respiratory Rate 11 L 12 13 Blood Pressure 90/52 L Pulse Oximetry 95 95 06/08/18 18:00 06/08/18 19:00 06/08/18 20:00 Temperature 98.1 F Pulse Rate 71 73 70 Respiratory Rate 16 14 11 L Blood Pressure 111/62 113/72 103/57 L Pulse Oximetry 95 96 95 06/08/18 20:10 06/08/18 21:00 06/08/18 22:00 Temperature Pulse Rate 116 H 67 61 Respiratory Rate 18 18 18 Blood Pressure 106/62 113/56 L Pulse Oximetry 96 94 L 95 06/08/18 23:00 06/08/18 23:37 06/09/18 00:00 Temperature 98.5 F Pulse Rate 62 86 55 L Respiratory Rate 18 18 18 Blood Pressure 108/59 L 115/57 L Pulse Oximetry 95 97 06/09/18 01:00 06/09/18 01:01 06/09/18 01:10 Temperature Pulse Rate 50 L 53 L 97 H Respiratory Rate 18 18 21 Blood Pressure 89/51 L 116/57 L Pulse Oximetry 95 95 91 L 06/09/18 02:00 06/09/18 03:00 06/09/18 03:14 Temperature Pulse Rate 56 L 90 55 L Respiratory Rate 18 13 18 Blood Pressure 107/66 114/68 Pulse Oximetry 96 97 06/09/18 03:39 06/09/18 04:00 06/09/18 05:00 Temperature 97.8 F Pulse Rate 66 102 H Respiratory Rate 18 18 18 Blood Pressure 114/58 L Pulse Oximetry 95 95 94 L 06/09/18 05:01 06/09/18 06:00 06/09/18 07:00 Temperature Pulse Rate 96 H 60 52 L Respiratory Rate 18 18 18 Blood Pressure 125/75 106/56 L 94/55 L Pulse Oximetry 95 96 96 06/09/18 08:00 06/09/18 08:12 06/09/18 10:00 Temperature 98 F Pulse Rate 45 L 47 L 47 L Respiratory Rate 18 18 Blood Pressure 81/49 L Pulse Oximetry 94 L 95 06/09/18 11:54 06/09/18 12:00 Temperature 98.7 F Pulse Rate 105 H 97 H Respiratory Rate 19 13 Blood Pressure 117/66 Pulse Oximetry 95 Intake & Output 06/08/18 06/09/18 06/09/18 18:59 06:59 18:59 Intake Total 1330 / 1330 2915 / 2915 515 / 515 Output Total 1550 / 1550 2170 / 2170 Balance -220 / -220 745 / 745 515 / 515 Weight 159.5 kg Intake: IV 150 / 150 1865 / 1865 515 / 515 Versed Inj 50 mg In 50 ml @ 2 50 / 50 MG/HR 2 mls/hr IV.CONT TITRATE PRN Rx#:[id number] 1/2 Normal Saline Inj 1,000 ML 1000 / 1000 @ 20 mls/hr IV.CONT .Q24H BECKY Rx#:[id number] Maxipime Inj 2,000 MG In NS Inj 100 / 100 100 / 100 100 ML @ 200 mls/hr IV.SIG Q12H BECKY Rx#:[id number] Vancomycin Inj 1,500 MG In NS 515 / 515 515 / 515 Inj 500 ML @ 250 mls/hr IV.SIG Q12H BECKY Rx#:[id number] fentaNYL 10 mcg/mL Premix Drip 250 / 250 2,500 mcg In 250 ml @ 50 MCG/HR 5 mls/hr IV.SIG TITRATE PRN Rx #:[id number] Oral 0 / 0 Tube Feeding 780 / 780 790 / 790 Tube Irrigant 60 / 60 Water Bolus Amount 400 / 400 200 / 200 Output: Urine 0 / 0 Stool 0 / 0 Urine/Stool Mix 20 / 20 Urine Amount (Catheter) 1550 / 1550 2150 / 2150 Indwelling Urethral Catheter 1550 / 1550 2150 / 2150 Other: Date of Last Bowel Movement 06/08/18 06/09/18 06/08/18 # Bowel Movements 0 # Incontinent Bowel Movements 0 Result Diagrams: 06/09/18 04:00 06/09/18 04:00 Other Results: Microbiology 05/30/18 22:21 Blood - Peripheral Aerobic Blood Culture - Final No growth in 5 days 05/30/18 22:21 Blood - Peripheral Anaerobic Blood Culture - Final No growth in 5 days 05/30/18 22:21 Blood - Peripheral Aerobic Blood Culture - Final No growth in 5 days 05/30/18 22:21 Blood - Peripheral Anaerobic Blood Culture - Final No growth in 5 days 05/31/18 14:50 Wound - Abdominal Gram Stain - Final 05/31/18 14:50 Wound - Abdominal Wound Culture - Final S. aureus MRSA 05/31/18 13:08 Urine - Catheterized Urine Streptococcus pneumoniae Antigen ( M - Final Presumptive negative for streptococcus pneumoniae antigen, suggesting no current or recent infection. Infection due to Streptococcus pneumoniae cannot be ruled out since the antigen present in the sample may be below the detection limit of the test. 05/31/18 13:08 Urine - Catheterized Urine Legionella Antigen - Final Presumptive negative for Legionella pneumophila serogroup 1 antigen in urine, suggesting no recent or recurrent infection. Infection due to Legionella cannot be ruled out since other serogroups and species may cause disease, antigen may not be present in urine in early infection, and the level of antigen present in the urine may be below the detection limit of the test. 05/30/18 22:56 Clean Catch Urine Urine Culture - Final 50-100,000 cfu/mL mixed leesa (probable contaminants ) Imaging: Chest X-Ray 05/30/18 22:09 CONCLUSION: Cardiomegaly. Diffuse increased interstitial markings likely related to edema. Increased density at the left base with silhouetting of the left hemidiaphragm secondary to left base atelectasis, consolidation and/or effusion. Abdomen/Bladder Ultrasound 05/31/18 00:00 CONCLUSION: 1. No obstructive uropathy or other acute abnormality demonstrated. 2. Benign cyst of the right kidney. Abdomen/Pelvis CT 05/31/18 00:00 CONCLUSION: 1. Cholelithiasis. 2. Colonic diverticulosis without definitive evidence for diverticulitis. 3. Prominent uterus with hypodense 6 cm mass anteriorly likely reflecting a pedunculated fibroid. 4. Appendix is not visualized and potentially obscured by the uterine fibroid. 5. Large fat-containing left-sided anterior abdominal wall hernia. 6. Diffuse soft tissue edema in the inferior abdominal pannus. Head CT 05/31/18 00:00 CONCLUSION: 1. No acute intracranial abnormality. 2. Minimal paranasal sinus mucosal disease. Chest X-Ray 05/31/18 13:55 CONCLUSION: 1. Cardiomegaly with resolving interstitial edema and improving aeration in the left lung base. 2. Endotracheal tube appropriately positioned above the brittnee. Nasogastric tube is curled in the gastric fundus and the left IJ central venous catheter is identified. At the junction of the left and right brachiocephalic vein. Foot X-Ray 06/02/18 00:00 CONCLUSION: There is a destructive change at the distal aspect of the third distal phalanx at the tuft. Osteomyelitis needs be considered. 0.4 cm calcific density seen at the proximal lateral plantar aspect of the third digit. Chest X-Ray 06/02/18 06:00 CONCLUSION: 1. Stable tubes and lines. 2. Cardiomegaly with positive fluid balance. 3. Stable left and worsening right lower lung zone airspace disease. Chest X-Ray 06/03/18 06:00 CONCLUSION: Cardiomegaly with bilateral airspace disease greater in the right lung, unchanged. Chest X-Ray 06/04/18 00:00 CONCLUSION: No significant change Chest X-Ray 06/05/18 06:00 CONCLUSION: No significant change Chest X-Ray 06/06/18 06:00 CONCLUSION: Support apparatus unchanged. Bilateral mostly basilar airspace disease and cardiomegaly with effusions also not significantly changed considering differences in technique. Head MRI 06/07/18 00:00 CONCLUSION: 1. Senescent changes with mild periventricular ischemic white matter demyelination. 2. Otherwise, unremarkable MRI examination of the brain. Specifically, no evidence for acute infarction. 3. Paranasal sinus disease. Chest X-Ray 06/08/18 06:00 CONCLUSION: No significant change in bilateral mostly basilar and dependent airspace disease and possible mild edema. Endotracheal tube and nasogastric tube unchanged. Left central line in left brachiocephalic vein. Chest X-Ray 06/09/18 06:00 CONCLUSION: Stable bilateral airspace disease and pleural effusions. Endotracheal tube and nasogastric tube unchanged. Objective Remarks: GENERAL: 67-year-old female currently resting in bed currently orotracheally intubated SKIN: Cool and dry. Tinea cruris, axillary region and under the breasts. Excoriated pannus in back. Purple rash and excoriation bilateral lower extremity HEAD: Atraumatic. Normocephalic. No temporal wasting, or tenderness. EYES: Pupils equal, round and reactive to light. Extraocular movements are present EARS, NOSE AND THROAT: Edentulous. Mucous membranes dry. Orotracheally intubated NECK: Short and obese neck, supple, left IJ is clean dry and intact. CARDIOVASCULAR: Diminished heart sounds. Tachycardic. RR. No murmurs, rubs or gallops heard RESPIRATORY: Diminished breath sounds throughout due to body habitus. No wheezing ABDOMEN: Obese abdomen, soft, with multiple striae and excoriations EXTREMITIES: Positive pedal edema. Has mild mottling both feet. Purple rash and excoriation bilateral lower extremity. Necrotic appearing right third toe. NEUROLOGICAL: Cranial nerves appear to be grossly intact. Positive gag and cough. Spontaneously moves extremities to stimulation. Currently spontaneously opens eyes. She is following commands currently. Assessment and Plan - Assessment and Plan Plan: NEURO/Psych: Acute severe encephalopathy secondary to severe sepsis/hypercarbia Depression disorder NOS Chronic benzodiazepine use On midazolam drip at 2 mg an hour and fentanyl drip at 50 mcg an hour for sedation. Daily sedation vacation. Goal of RASS -2 CT brain on admission revealed no acute intracranial findings 06/06 EEG, severe encephalopathyepileptiform activity Acetaminophen 650 every 6 hours as needed fever Holding citalopram 20 mg daily/home medication for depression. Resume clinically indicated On lorazepam 0.5 mg at night as needed. Currently on 1 mg every 15 minutes for possible seizure activity? MRI brain revealed no acute intracranial abnormalities RESP: Acute respiratory failure/hypercarbic and hypoxemic Acute COPD exacerbation Probable community-acquired pneumonia On PC/AC RR 18, IP: 23, IT:1.0, PEEP:8, FIO2 45 Ventilator bundle -Albuterol/ipratropium aerosols every 4 hours scheduled and albuterol aerosols every 2 hours as needed Continue IV methylprednisolone succinate 40 mg every 12 Spontaneous breathing trials as clinically indicated CV: Atrial flutter with rapid ventricular response resolved Sinus bradycardia currently sinus tachycardia History of essential hypertension History of dyslipidemia Off all vasopressors -Echo showed EF 50-55% -Monitor HR and BP keep MAP>65mmHg Currently on pravastatin 80 mg daily, hospital substitution for simvastatin 40 mg daily which is her home medication GI: Hypoalbuminemia Cholelithiasis Sigmoid diverticulosis Abdominal wall hernia/left-sided Hypoalbuminemia -on tube feeds with vital 1.5 goal 65 cc an hour. 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 avoid nephrotoxins -Renal ultrasound -right renal cyst otherwise no signs of obstruction. -Nephrology is following, Dr. Narvaez On 1/2NS@20ml/hr, free water 200ml Q6 ID: UTI Wound cultures positive for MRSA -ID following, continue cefepime and vancomycin per IDs recommendation. Azithromycin discontinued 06/03 ceftaroline discontinued 06/06 Monitor or signs of infections (Fever, WBC) Right 3rd toe and other skin lesions/cellulitis on LLE likely sources of infection Xray foot: There is a destructive change at the distal aspect of the third distal phalanx at the tuft. 0.4 cm calcific density seen at the proximal lateral plantar aspect of the third digit. Podiatry is following, might need right third digit amputation per Podiatry Mupirocin to nares twice daily Pertinent cultures 05/31 -wound culture -MRSA 05/30 -blood cultures 2 -no growth 05/30 -UA -50- 100,000 -s/p Permethrin cream 5% for possible scabies HEME: Thrombocytopenia No indication for transfusion of blood products at this time -Monitor CBC, CMP, coags FEN/ENDO: Diabetes mellitus Hypophosphatemia Holding home medications Metformin 1000 mg twice daily and glipizide at 5 mg twice daily. TSH 0.97 Insulin detemir 32 units BID and SSI with Novolin R q. 6 hour Accu-Cheks MSK: Elevated BMI Necrotic right third toe. Xray foot: There is a destructive change at the distal aspect of the third distal phalanx at the tuft. Podiatry is following, recommend amputation when clinically stable Wt loss encouraged PT evaluate and treat PROPH: -Bilateral lower extremity SCDs. Heparin subcu 5000 units every 8 hours. Lansoprazole 30 mg daily LINES: -Left IJ central line placed 05/31/18 Palliative care is following Level 3 follow-up
--- NOTE | 2018-06-09 15:17 | P.DIET ---
Nutritional Evaluation Type of nutrition evaluation: follow-up Nutrition consult regarding: Tube Feeding ([facility] [place] for Tube Feeding) Objective - Diagnosis Acute Kidney Injury, UTI - Objective % IBW: 242 (145#) Body Weight Used for Calculations: IBW (66kg (Per SCCM/ASPEN guidelines)) Energy Needs - Lower Range (kCal/kg): 22 Energy Needs - Upper Range (kCal/kg): 25 Lower Limit kCal/kg (kCals): 1,450 Upper Limit kCal/kg (kCals): 1,650 Lower Limit Protein Factor (Grams per Kg): 2.0 Upper Limit Protein Factor (Grams per Kg): 2.5 Lower Protein Needs (Protein): 132 Upper Protein Needs (Protein): 165 Dietitian Reviewed in Medical Record: Curent medications, Intake & Output, Labs , Medical history, Tube feeding Diet Order: TF Only Objective Comments: Meds: Solumedrol Labs: AccuCheck 298, A1C 7.3 200ml water flushes Q 6hrs Feeding - Current Tube Feeding Tube Feeding Product: Vital 1.5 Tube Feeding Method: Pump Tube Feeding Rate: 65 Current kCals Provided by Tube Feedin,340 Current Protein Provided by Tube Feeding (gPRO): 105 Current Free H2O Provided (m/l): 1,192 Assessment Assessment: Pt remains on TFing as described above. Please note, order is for Vital 1.5 @ 65mls/hr. If unable to extubate, recommend changing to Vital High Protein @ 65mls/hr to better meet pts nutritional requirements. This will provide a significantly lower amount of carbohydrates then what is currently ordered. This regimen will provide 1560kcals, 137g PRO, 1304mls fluid, and 175g CHO ( current TF providing 292g CHO). Pt is also on Solumedrol. BG levels and A1C reviewed. Per review of EMR, pt tolerated CPAP x 8hrs yesterday, but none today. Dietitian following. Recommendations: 1. Recommend Vital High Protein @ 65mls/hr x 24hrs to better meet nutritional requirements. Dietitian to Monitor: Lab values, Glucose level, Intake & Output, Tube feeding tolerance, Weight change, Medical course
--- NOTE | 2018-06-09 16:20 | P.PCN ---
Date of procedure: 06/09/18 Pre-op diagnosis: Resp failure, difficult access Post-op diagnosis: same Procedure: US guided RI central line Central line checklist completed, timeout completed. I wore a surgical cap, mask with protective eyewear, full gown and sterile gloves throughout the procedure. Right neck and chest region was prepped using chlorhexidine scrub and draped in sterile fashion. The Internal Jugular vein was identified using the ultrasound. Anesthesia was achieved over the vein using 1% lidocaine. The introducer needle was inserted into the Internal Jugular vein under direct ultrasound visualization. Venous blood was withdrawn. The syringe was removed and a guidewire was advanced into the introducer needle. The guidewire was visualized in the Internal Jugular Vein by ultrasound. A small incision was made at the skin surface with a scalpel and the introducer needle was exchanged for a dilator over the guidewire. After appropriate dilation was obtained, the dilator was exchanged over the wire for a triple lumen, 7F, antibiotic coated central venous catheter. The wire was removed and the catheter was sutured in place at 18 cm. A sterile central line dressing was placed over the catheter at the insertion site. The patient tolerated the procedure without any hemodynamic compromise. At time of procedure completion, all ports aspirated and flushed properly. Post-procedure chest x-ray is pending at this time. Anesthesia: local Surgeon: Smita Wayne Estimated blood loss (mL): 1 Pathology: none sent Condition: critical Disposition: ICU
--- NOTE | 2018-06-09 17:03 | XR ---
EXAM DATE: 06/09/2018 4:57 PM EDT AGE/SEX: 67 years / Female INDICATIONS: Evaluate central line placement CLINICAL DATA: This is the patient's subsequent encounter. Patient reports that signs and symptoms h ave been present for 4 - 6 days and indicates a pain score of Nonresponsive. MEDICAL/SURGICAL HISTORY: . Hypertension. Depression. Diabetes. Hypertriglyceridemia None. COMPARISON: [facility], CHEST 1V SINGLE AP, 06/09/2018. . FINDINGS: The patient is rotated to the left. There is been interval insertion of a left internal jugular centr al venous catheter which extends into the mid to lower portion of the right atrium. Endotracheal tube, nasogastric tube and left jugular central line are in stable position. Significant opacity is evident throughout both lung adrian. CONCLUSION: Interval placement of a right jugular central venous catheter which extends into the right atrium. No evidence of pneumothorax. Otherwise no change. Electronically signed by: Darrell Gao MD 06/09/2018 5:01 PM EDT
[2018-06-09] MEDS ORDERED: Metoprolol Inj 5 MG/5 ML Vial IV.PUSH ONE (17:27)
[2018-06-09] MEDS ORDERED: Digoxin Inj 500 MCG/2 ML Ampul IV.PUSH ONE (17:27)
[2018-06-09] MEDS ORDERED: Metoprolol Inj 5 MG/5 ML Vial ONE (17:30)
[2018-06-09] MEDS ORDERED: Digoxin Inj 500 MCG/2 ML Ampul ONE (17:30)
[2018-06-09] MEDS: Mag Sulf 1 gm/100 ml Premix 100 ML IV.SIG SCH ×2 (17:52→20:35)
--- NOTE | 2018-06-09 20:11 | ECG ---
Date Performed: 06/09/2018 Time Performed: 05:00:02 PTAGE: 67 years EKG: Sinus tachycardia with frequent PVCs with PAC(s) Right axis deviation Anterior T wave talbot es are nonspecific Generalized low QRS voltages Abnormal ECG PREVIOUS TRACING :05/31/2018 @16.02 The patient is no longer in atrial flutter compared to the p rior tracing. DOCTOR: Marcio Wilson Interpretating Date/Time 06/09/2018 20:11:06
[2018-06-09] MEDS: Sodium Chloride 0.45 % Inj 1,000 ML IV.CONT SCH (20:36)
[2018-06-09] MEDS: Hypromellose 0.3% Opth Gel 10 GM Bottle EACH EYE SCH (20:37)
[2018-06-10] MEDS: Oral Hygiene Kit OROPHARYNG SCH ×5 (00:12→23:48)
[2018-06-10] MEDS: Insulin NovoLIN Regular Correctional Sugar Inj SQ SCH ×5 (00:12→23:47)
[2018-06-10] MEDS: Heparin - SQ 10,000 UNITS/ML Vial SQ SCH ×2 (02:39→09:59)
[2018-06-10] MEDS: fentaNYL 10 mcg/mL Premix Drip 2,500 MCG/250 ML BAG IV.SIG PRN (02:40)
[2018-06-10 04:29] LABS: Baso % (Auto) 0.3 % (0.0-2.0); Eos % (Auto) 0.7 % (0.0-4.0); Hematocrit 45.5 % (35.0-46.0); Hemoglobin 14.2 gm/dL (11.6-15.3); Lymph # (Auto) 0.7 th/mm3 (1.0-4.8); Lymph % (Auto) 9.4 % (9.0-44.0); Mean Corpuscular HGB Conc 31.2 % (32.0-36.0); Mean Corpuscular Volume 86.5 fL (80.0-100.0); Mean Platelet Volume 8.6 fL (7.0-11.0); Mono # (Auto) 0.5 th/mm3 (0.0-0.9); Mono % (Auto) 7.5 % (0.0-8.0); Neut # (Auto) 5.9 th/mm3 (1.8-7.7); Neut % (Auto) 82.1 % (16.0-70.0); Platelet Count 151 th/mm3 (150-450); Red Blood Count 5.26 mil/mm3 (4.00-5.30); Red Cell Distribution Width 16.9 % (11.6-17.2); White Blood Count 7.1 th/mm3 (4.0-11.0)
[2018-06-10] MEDS ORDERED: Pharmacy Ordered Lab Info OTHER ONE (04:45)
[2018-06-10 05:05] LABS: Anion Gap 9 meq/L (5-15); Blood Urea Nitrogen 24 mg/dL (7-18); Calcium 8.9 mg/dL (8.5-10.1); Carbon Dioxide 27.1 meq/L (21.0-32.0); Chloride 105 meq/L (98-107); Glomerular Filtration Rate Greater Than 89 mL/min (>89); Glucose,Random 115 mg/dL (74-106); Magnesium 2.3 mg/dL (1.5-2.5); Phosphorus 2.3 mg/dL (2.5-4.9); Potassium 4.1 meq/L (3.5-5.1); Sodium 141 meq/L (136-145); Vancomycin,Trough 23.6 mcg/mL (5.0-10.0)
[2018-06-10] MEDS: Vancomycin Inj 1,500 MG in Sodium Chlor 0.9% Inj 500 ML IV.SIG SCH ×2 (06:11→23:47)
--- NOTE | 2018-06-10 06:52 | XR ---
EXAM DATE: 06/10/2018 6:42 AM EDT AGE/SEX: 67 years / Female INDICATIONS: Shortness of breath. CLINICAL DATA: This is the patient's subsequent encounter. Patient reports that signs and symptoms h ave been present for 1 week and indicates a pain score of Nonresponsive. MEDICAL/SURGICAL HISTORY: . Hypertension. Depression. Diabetes. Hypertriglyceridemia. None. [place] [facility] [place] 1[place]09/2018. . FINDINGS: Left greater than right basilar consolidation with small effusions improved in the interim. No pneumo thorax seen. Mild cardiomegaly is stable. Endotracheal tube tip is approximately 5 cm above the brittnee. Nasogastric tube courses into the stoma ch. There is right internal jugular central venous catheter again seen with tip in the superior vena cava. CONCLUSION: Considerable improvement left greater than right basilar consolidation and small effusions. Electronically signed by: Tone Vega MD 06/10/2018 6:51 AM EDT
--- NOTE | 2018-06-10 09:22 | P.PNID ---
Subjective Remarks: Patient is a 67-year-old female, lives at home with her son, brought into the hospital for evaluation of 2-3 week history of generalized weakness. According to the notes normally she can ambulate in her home using a walker. She was still able to do some ambulation, however for the past 2 days, patient apparently has not been able to get up. It was also noted that she was having some swelling in her abdomen and there was some mention of possible redness. There was no mention of any fever or chills. She has not been congested or coughing. She has not been complaining of any chest pain or any shortness of breath. There is been no nausea or vomiting, or complaints of any diarrhea or urinary complaints. She has known hypertension and diabetes, and there was mention that she has not been able to take her medications since she did not have any money to get her refills. She was initially admitted to the regular floor, and but she developed progressive lethargy, and she was transferred to the ICU. She has not been febrile. Her mental status continued to deteriorate, and she ended up getting intubated. Her chest x-ray showing opacity on the left base. She also has evidence of elevated creatinine, as well as hyperkalemia. Her urinalysis did show significant pyuria. She is getting fluid resuscitation. Currently her blood pressure is holding. Infectious disease consultation has been requested to evaluate the patient with severe sepsis, UTI, and possible scabies. Notes reviewed Afebrile BP ok Doing CPAP trials as tolerated Awake, looking Antibiotics: Cefepime Vancomycin Lines: [facility] - 06/09 Past Medical History: Depression Diabetes Hypertension Hypertriglyceridemia Allergies/Adverse Reactions: Allergies No Known Allergies Allergy (Verified 05/30/18 22:08) Objective Vital Signs 06/09/18 10:00 06/09/18 11:54 06/09/18 12:00 Temperature 98.7 F Pulse Rate 47 L 105 H 97 H Respiratory Rate 19 13 Blood Pressure 117/66 Pulse Oximetry 95 06/09/18 14:00 06/09/18 16:00 06/09/18 16:49 Temperature 99.1 F Pulse Rate 97 H 102 H 65 Respiratory Rate 13 18 Blood Pressure 118/72 Pulse Oximetry 95 06/09/18 17:45 06/09/18 17:55 06/09/18 18:00 Temperature Pulse Rate 86 65 91 H Respiratory Rate 18 6 L Blood Pressure 118/72 119/86 Pulse Oximetry 93 L 95 06/09/18 18:15 06/09/18 18:30 06/09/18 18:45 Temperature Pulse Rate 93 H 87 83 Respiratory Rate 18 18 18 Blood Pressure 119/80 116/73 121/79 Pulse Oximetry 94 L 94 L 97 06/09/18 19:00 06/09/18 19:16 06/09/18 19:32 Temperature Pulse Rate 87 81 120 H Respiratory Rate 18 18 18 Blood Pressure 129/83 138/87 56/37 L Pulse Oximetry 98 98 96 06/09/18 19:37 06/09/18 19:44 06/09/18 19:45 Temperature Pulse Rate 89 101 H 88 Respiratory Rate 18 18 18 Blood Pressure 69/44 L 117/79 118/81 Pulse Oximetry 97 96 96 06/09/18 20:00 06/09/18 20:01 06/09/18 20:19 Temperature 98.1 F Pulse Rate 87 86 117 H Respiratory Rate 18 18 19 Blood Pressure 134/71 133/76 Pulse Oximetry 97 97 98 06/09/18 20:46 06/09/18 21:00 06/09/18 21:15 Temperature Pulse Rate 154 H 125 H 110 H Respiratory Rate 25 H 18 18 Blood Pressure 136/84 112/67 Pulse Oximetry 91 L 94 L 93 L 06/09/18 21:30 06/09/18 21:50 06/09/18 22:00 Temperature Pulse Rate 95 H 127 H 78 Respiratory Rate 18 19 19 Blood Pressure 110/81 120/87 103/74 Pulse Oximetry 94 L 96 95 06/09/18 22:15 06/09/18 22:39 06/09/18 22:45 Temperature Pulse Rate 82 80 78 Respiratory Rate 18 18 18 Blood Pressure 116/75 97/63 L 92/59 L Pulse Oximetry 95 92 L 93 L 06/09/18 23:00 06/09/18 23:15 06/09/18 23:30 Temperature Pulse Rate 77 79 76 Respiratory Rate 18 18 18 Blood Pressure 90/63 L 88/64 L 93/66 L Pulse Oximetry 94 L 94 L 94 L 06/09/18 23:46 06/10/18 00:00 06/10/18 00:16 Temperature 98.3 F Pulse Rate 75 70 70 Respiratory Rate 18 18 18 Blood Pressure 114/80 93/68 L 104/70 Pulse Oximetry 97 95 96 06/10/18 00:30 06/10/18 00:45 06/10/18 01:00 Temperature Pulse Rate 71 67 68 Respiratory Rate 18 18 18 Blood Pressure 88/64 L 97/70 L Pulse Oximetry 94 L 95 94 L 06/10/18 01:01 06/10/18 01:16 06/10/18 01:31 Temperature Pulse Rate 72 67 69 Respiratory Rate 22 18 18 Blood Pressure 101/76 96/72 L 105/71 Pulse Oximetry 94 L 95 96 06/10/18 01:46 06/10/18 02:00 06/10/18 02:15 Temperature Pulse Rate 63 62 62 Respiratory Rate 18 18 18 Blood Pressure 94/62 L 103/71 103/75 Pulse Oximetry 95 94 L 94 L 06/10/18 02:31 06/10/18 02:46 06/10/18 03:00 Temperature Pulse Rate 60 62 63 Respiratory Rate 18 21 21 Blood Pressure 105/75 106/63 Pulse Oximetry 93 L 93 L 93 L 06/10/18 03:01 06/10/18 03:15 06/10/18 03:32 Temperature Pulse Rate 58 L 61 58 L Respiratory Rate 23 24 26 H Blood Pressure 115/72 109/69 120/81 Pulse Oximetry 92 L 92 L 91 L 06/10/18 03:39 06/10/18 03:46 06/10/18 04:00 Temperature 98.6 F Pulse Rate 58 L 58 L 55 L Respiratory Rate 18 18 18 Blood Pressure 121/69 Pulse Oximetry 92 L 92 L 92 L 06/10/18 04:01 06/10/18 04:16 06/10/18 04:31 Temperature Pulse Rate 59 L 58 L 57 L Respiratory Rate 18 18 18 Blood Pressure 114/76 118/70 116/68 Pulse Oximetry 91 L 92 L 91 L 06/10/18 04:46 06/10/18 05:00 06/10/18 05:01 Temperature Pulse Rate 59 L 61 56 L Respiratory Rate 18 18 18 Blood Pressure 113/72 112/73 Pulse Oximetry 93 L 91 L 91 L 06/10/18 05:16 06/10/18 05:31 06/10/18 06:00 Temperature Pulse Rate 76 63 64 Respiratory Rate 18 18 18 Blood Pressure 109/70 106/73 Pulse Oximetry 91 L 92 L 92 L 06/10/18 06:56 06/10/18 07:00 06/10/18 08:00 Temperature Pulse Rate 57 L 58 L Respiratory Rate 18 18 17 Blood Pressure 90/62 L Pulse Oximetry 94 L 93 L 96 Intake & Output 06/09/18 06/10/18 06/10/18 18:59 06:59 18:59 Intake Total 1815 / 1815 3049 / 3049 Output Total 3270 / 3270 4400 / 4400 Balance -1455 / -1455 -1351 / -1351 Weight 150.2 kg Intake: IV 765 / 765 2014 Precedex Inj 1,000 MCG In NS 250 / 250 Inj 240 ML @ 0.2 MCG/KG/HR 8.01 mls/hr IV.CONT TITRATE PRN Rx# :[id number] Versed Inj 50 mg In 50 ml @ 2 50 / 50 MG/HR 2 mls/hr IV.CONT TITRATE PRN Rx#:[id number] 1/2 Normal Saline Inj 1,000 ML 1000 / 1000 @ 20 mls/hr IV.CONT .Q24H BECKY Rx#:[id number] Maxipime Inj 2,000 MG In NS Inj 100 / 100 100 ML @ 200 mls/hr IV.SIG Q12H BECKY Rx#:[id number] Magnesium Sulfate 1 gm/D5W 100 100 / 100 ml Premix 100 ML @ 100 mls/hr IV.SIG Q1H BECKY Rx#:[id number] Vancomycin Inj 1,500 MG In NS 515 / 515 515 / 515 Inj 500 ML @ 250 mls/hr IV.SIG Q12H BECKY Rx#:[id number] fentaNYL 10 mcg/mL Premix Drip 250 / 250 2,500 mcg In 250 ml @ 50 MCG/HR 5 mls/hr IV.SIG TITRATE PRN Rx #:[id number] Oral 0 / 0 0 / 0 Tube Feeding 790 / 790 574 / 574 Tube Irrigant 60 / 60 60 / 60 Water Bolus Amount 200 / 200 400 / 400 Output: Urine 0 / 0 0 / 0 Stool 0 / 0 0 / 0 Urine/Stool Mix 20 / 20 50 / 50 Urine Amount (Catheter) 3250 / 3250 4350 / 4350 Indwelling Urethral Catheter 3250 / 3250 4350 / 4350 Other: Date of Last Bowel Movement 06/09/18 06/10/18 # Bowel Movements 0 0 # Incontinent Bowel Movements 0 0 Lab - Hematology Results 06/09/18 06/10/18 04:00 04:15 WBC 7.4 7.1 RBC 4.98 5.26 Hgb 13.6 14.2 Hct 43.8 45.5 MCV 87.9 86.5 MCH 27.3 27.0 MCHC 31.1 L 31.2 L RDW 16.6 16.9 Plt Count 128 L 151 MPV 8.9 8.6 Neut % (Auto) 86.3 H 82.1 H Lymph % (Auto) 5.5 L 9.4 [place] % (Auto) 7.6 7.5 Eos % (Auto) 0.6 0.7 Baso % (Auto) 0.0 0.3 Neut # (Auto) 6.4 5.9 Lymph # (Auto) 0.4 L 0.7 L [place] # (Auto) 0.6 0.5 Eos # (Auto) 0.0 0.0 Baso # (Auto) 0.0 0.0 WBC Differential . . Differential Comment Auto diff final Auto diff final Lab - Chemistry Results 06/08/18 06/08/18 06/08/18 13:08 15:34 18:31 Sodium Potassium Chloride Carbon Dioxide Anion Gap BUN Creatinine Estimated GFR POC Glucose 289 H 274 H Random Glucose Lactic Acid 1.5 Calcium Phosphorus Magnesium Total Bilirubin AST ALT Alkaline Phosphatase Ammonia Troponin I Total Protein Albumin 06/08/18 06/09/18 06/09/18 23:54 04:00 04:00 Sodium 138 Potassium 4.6 Chloride 103 Carbon Dioxide 30.6 Anion Gap 4 L BUN 31 H Creatinine 0.75 Estimated GFR 77 L POC Glucose 260 H Random Glucose 258 H D Lactic Acid Calcium 7.9 L Phosphorus 2.8 Magnesium 1.9 Total Bilirubin 0.4 AST 8 L ALT 30 Alkaline Phosphatase 57 Ammonia 11 Troponin I Total Protein 5.5 L Albumin 2.2 L 06/09/18 06/09/18 06/09/18 05:41 12:31 16:51 Sodium Potassium Chloride Carbon Dioxide Anion Gap BUN Creatinine Estimated GFR POC Glucose 234 H 298 H 334 H Random Glucose Lactic Acid Calcium Phosphorus Magnesium Total Bilirubin AST ALT Alkaline Phosphatase Ammonia Troponin I Total Protein Albumin 06/09/18 06/10/18 06/10/18 23:57 04:15 05:33 Sodium 141 Potassium 4.1 Chloride 105 Carbon Dioxide 27.1 Anion Gap 9 BUN 24 H Creatinine 0.64 Estimated GFR Greater than 89 POC Glucose 164 H 103 Random Glucose 115 H D Lactic Acid Calcium 8.9 D Phosphorus 2.3 L Magnesium 2.3 Total Bilirubin AST ALT Alkaline Phosphatase Ammonia Troponin I Less than 0.02 L Total Protein Albumin Imaging: ITS Impressions Abdomen/Bladder Ultrasound 05/31/18 00:00 CONCLUSION: 1. No obstructive uropathy or other acute abnormality demonstrated. 2. Benign cyst of the right kidney. Abdomen/Pelvis CT 05/31/18 00:00 CONCLUSION: 1. Cholelithiasis. 2. Colonic diverticulosis without definitive evidence for diverticulitis. 3. Prominent uterus with hypodense 6 cm mass anteriorly likely reflecting a pedunculated fibroid. 4. Appendix is not visualized and potentially obscured by the uterine fibroid. 5. Large fat-containing left-sided anterior abdominal wall hernia. 6. Diffuse soft tissue edema in the inferior abdominal pannus. Head CT 05/31/18 00:00 CONCLUSION: 1. No acute intracranial abnormality. 2. Minimal paranasal sinus mucosal disease. Foot X-Ray 06/02/18 00:00 CONCLUSION: There is a destructive change at the distal aspect of the third distal phalanx at the tuft. Osteomyelitis needs be considered. 0.4 cm calcific density seen at the proximal lateral plantar aspect of the third digit. Head MRI 06/07/18 00:00 CONCLUSION: 1. Senescent changes with mild periventricular ischemic white matter demyelination. 2. Otherwise, unremarkable MRI examination of the brain. Specifically, no evidence for acute infarction. 3. Paranasal sinus disease. Chest X-Ray 06/10/18 06:00 CONCLUSION: Considerable improvement left greater than right basilar consolidation and small effusions. Physical Exam: GENERAL: awake, NAD, on the vent. SKIN: Cool and dry. Has abdominal striae. Has dry skin in all her toes and between her toes. HEAD: Atraumatic. Normocephalic. No temporal wasting, or tenderness. EYES: [employer] conjunctiva. Pupils equal, round and reactive to light. EARS, NOSE AND THROAT: Nose without bleeding or purulent nasal discharge. Mucous membranes moist. Orally intubated. NECK: Short and obese neck, supple, no meningeal signs CARDIOVASCULAR: Regular rate and rhythm. No murmurs, rubs or gallops heard RESPIRATORY: Decreased breath sounds both bases. Has bilateral wheezing ABDOMEN: Obese abdomen, soft, with striae, has large abdominal pannus, has obese mons pubis with excoriations, bowel sounds present and normoactive. No guarding. Dime size wound on L side of abdomen with slough, has serous drainage , no periwound redness EXTREMITIES: No clubbing, pedal edema. Dry gangrene at tip of R 3rd toe, no redness NEUROLOGICAL: Opens eyes some, no Babinski, no clonus PSYCHIATRIC: Unable to assess LINE LIJ: No evidence of infection, has several PIV Assessment and Plan - Plan Impression Sepsis on presentation due to UTI, possible PNA L. UTI, repeat UA better Possible right 3rd toe osteomyelitis. - destructive lesion at the tuft Acute renal failure, likely multifactorial, dehydration, sepsis, resolved Respiratory failure, could have underlying ANIVAL due to morbid obesity, possibly PNA L - developed high pCo2 due to hypoventilation - CXR improving Rash looks like scabies, S/P Rx scabies with permethrim Recommendation Continue IV Cefepime for GNR coverage. - give until 06/14 Continue to IV Vanco this weekend Will stop Abx early next week and monitor The 3rd toe can be worked up later for osteomyelitis, and address when family decides on goals of Rx Weaning per CCM Monitor progress Seems clinically stable from ID standpoint
[2018-06-10] MEDS: Senna/Docusate Sodium 8.6/50 MG Tablet PO SCH ×2 (10:00→21:10)
[2018-06-10] MEDS: Insulin Detemir Inj 1,000 UNIT/10 ML Vial SQ SCH ×2 (10:01→21:09)
[2018-06-10] MEDS: Mupirocin 2% Nasal Oint Topical Syringe EACH NARE SCH ×2 (10:01→21:10)
[2018-06-10] MEDS: MethylPREDNISolone Sod Succinate Inj 40 MG/ML Vial IV.PUSH SCH (10:01)
[2018-06-10] MEDS: Chlorhexidine 0.12% Oral Kit 15 ML UDC OROPHARYNG SCH ×2 (10:02→21:09)
--- NOTE | 2018-06-10 12:06 | P.PNPAL ---
Reason for Visit Reason for visit: a. To assist with evaluation and management of symptoms including: pain, dyspnea, weakness b. To assist medical decision maker(s) with: better understanding of current medical conditions; weighing benefits/burdens of medical treatment options; making medical treatment decisions. Subjective Subjective/Interval History: Dual visit with FERNANDO Pennington. Pt seen in [facility] [place] Remains intubated on vent. Appears comfortable. No grimacing. Pt tolerated 8 hours on CPAP 06/09. SHe did not tolerate attempts on 06/09, became tachycardic with any interventions to include position changes and cleaning. Today she is tolerating cpap trials with 8 of peep, d18 pressure, 45 % FiO2. She does open her eyes and seems to have increased heart rate to any stimulation, on my eval it jumped up to 115. Her systolic is in the 90s. CXR shows some improvement in consolidation and pleural effusions. 06/09 she had IJ placed. 06/[address] changes, AF w/ PVCs. Family/Friend Interactions: Spoke with son and spokesperson Shad on phone. Provided medical update, review of continued aggressive measures to include trach and feeding tube, and made arrangements for family teleconference on Wednesday. Left voicemail for DJ. Objective Vital Signs: Vital Signs 06/09/18 12:00 06/09/18 14:00 06/09/18 16:00 Temperature 98.7 F 99.1 F Pulse Rate 97 H 97 H 102 H Respiratory Rate 13 13 Blood Pressure 117/66 118/72 Pulse Oximetry 95 95 06/09/18 16:49 06/09/18 17:45 06/09/18 17:55 Temperature Pulse Rate 65 86 65 Respiratory Rate 18 18 Blood Pressure 118/72 Pulse Oximetry 93 L 06/09/18 18:00 06/09/18 18:15 06/09/18 18:30 Temperature Pulse Rate 91 H 93 H 87 Respiratory Rate 6 L 18 Blood Pressure 119/86 119/80 116/73 Pulse Oximetry 95 94 L 94 L 06/09/18 18:45 06/09/18 19:00 06/09/18 19:16 Temperature Pulse Rate 83 87 81 Respiratory Rate 18 18 18 Blood Pressure 121/79 129/83 138/87 Pulse Oximetry 97 98 98 06/09/18 19:32 06/09/18 19:37 06/09/18 19:44 Temperature Pulse Rate 120 H 89 101 H Respiratory Rate 18 18 18 Blood Pressure 56/37 L 69/44 L 117/79 Pulse Oximetry 96 97 96 06/09/18 19:45 06/09/18 20:00 06/09/18 20:01 Temperature 98.1 F Pulse Rate 88 87 86 Respiratory Rate 18 18 18 Blood Pressure 118/81 134/71 Pulse Oximetry 96 97 97 06/09/18 20:19 06/09/18 20:46 06/09/18 21:00 Temperature Pulse Rate 117 H 154 H 125 H Respiratory Rate 19 25 H 18 Blood Pressure 133/76 136/84 Pulse Oximetry 98 91 L 94 L 06/09/18 21:15 06/09/18 21:30 06/09/18 21:50 Temperature Pulse Rate 110 H 95 H 127 H Respiratory Rate 18 18 19 Blood Pressure 112/67 110/81 120/87 Pulse Oximetry 93 L 94 L 96 06/09/18 22:00 06/09/18 22:15 06/09/18 22:39 Temperature Pulse Rate 78 82 80 Respiratory Rate 19 18 18 Blood Pressure 103/74 116/75 97/63 L Pulse Oximetry 95 95 92 L 06/09/18 22:45 06/09/18 23:00 06/09/18 23:15 Temperature Pulse Rate 78 77 79 Respiratory Rate 18 18 18 Blood Pressure 92/59 L 90/63 L 88/64 L Pulse Oximetry 93 L 94 L 94 L 06/09/18 23:30 06/09/18 23:46 06/10/18 00:00 Temperature 98.3 F Pulse Rate 76 75 70 Respiratory Rate 18 18 18 Blood Pressure 93/66 L 114/80 93/68 L Pulse Oximetry 94 L 97 95 06/10/18 00:16 06/10/18 00:30 06/10/18 00:45 Temperature Pulse Rate 70 71 67 Respiratory Rate 18 18 18 Blood Pressure 104/70 88/64 L 97/70 L Pulse Oximetry 96 94 L 95 06/10/18 01:00 06/10/18 01:01 06/10/18 01:16 Temperature Pulse Rate 68 72 67 Respiratory Rate 18 22 18 Blood Pressure 101/76 96/72 L Pulse Oximetry 94 L 94 L 95 06/10/18 01:31 06/10/18 01:46 06/10/18 02:00 Temperature Pulse Rate 69 63 62 Respiratory Rate 18 18 18 Blood Pressure 105/71 94/62 L 103/71 Pulse Oximetry 96 95 94 L 06/10/18 02:15 06/10/18 02:31 06/10/18 02:46 Temperature Pulse Rate 62 60 62 Respiratory Rate 18 18 21 Blood Pressure 103/75 105/75 106/63 Pulse Oximetry 94 L 93 L 93 L 06/10/18 03:00 06/10/18 03:01 06/10/18 03:15 Temperature Pulse Rate 63 58 L 61 Respiratory Rate 21 23 24 Blood Pressure 115/72 109/69 Pulse Oximetry 93 L 92 L 92 L 06/10/18 03:32 06/10/18 03:39 06/10/18 03:46 Temperature Pulse Rate 58 L 58 L 58 L Respiratory Rate 26 H 18 18 Blood Pressure 120/81 121/69 Pulse Oximetry 91 L 92 L 92 L 06/10/18 04:00 06/10/18 04:01 06/10/18 04:16 Temperature 98.6 F Pulse Rate 55 L 59 L 58 L Respiratory Rate 18 18 18 Blood Pressure 114/76 118/70 Pulse Oximetry 92 L 91 L 92 L 06/10/18 04:31 06/10/18 04:46 06/10/18 05:00 Temperature Pulse Rate 57 L 59 L 61 Respiratory Rate 18 18 18 Blood Pressure 116/68 113/72 Pulse Oximetry 91 L 93 L 91 L 06/10/18 05:01 06/10/18 05:16 06/10/18 05:31 Temperature Pulse Rate 56 L 76 63 Respiratory Rate 18 18 18 Blood Pressure 112/73 109/70 106/73 Pulse Oximetry 91 L 91 L 92 L 06/10/18 06:00 06/10/18 06:56 06/10/18 07:00 Temperature Pulse Rate 64 57 L 58 L Respiratory Rate 18 18 18 Blood Pressure 90/62 L Pulse Oximetry 92 L 94 L 93 L 06/10/18 08:00 06/10/18 10:00 06/10/18 11:00 Temperature 98.3 F Pulse Rate 104 H 104 H 115 H Respiratory Rate 14 18 Blood Pressure 101/57 L Pulse Oximetry 93 L 06/10/18 11:38 Temperature Pulse Rate Respiratory Rate 20 Blood Pressure Pulse Oximetry 92 L Intake & Output 06/09/18 06/10/18 06/10/18 18:59 06:59 18:59 Intake Total 1815 / 1815 3049 / 3049 Output Total 3270 / 3270 4400 / 4400 Balance -1455 / -1455 -1351 / -1351 Weight 150.2 kg Intake: IV 765 / 765 2014 Precedex Inj 1,000 MCG In NS 250 / 250 Inj 240 ML @ 0.2 MCG/KG/HR 8.01 mls/hr IV.CONT TITRATE PRN Rx# :[id number] Versed Inj 50 mg In 50 ml @ 2 50 / 50 MG/HR 2 mls/hr IV.CONT TITRATE PRN Rx#:[id number] 1/2 Normal Saline Inj 1,000 ML 1000 / 1000 @ 20 mls/hr IV.CONT .Q24H BECKY Rx#:[id number] Maxipime Inj 2,000 MG In NS Inj 100 / 100 100 ML @ 200 mls/hr IV.SIG Q12H BECKY Rx#:[id number] Magnesium Sulfate 1 gm/D5W 100 100 / 100 ml Premix 100 ML @ 100 mls/hr IV.SIG Q1H BECKY Rx#:[id number] Vancomycin Inj 1,500 MG In NS 515 / 515 515 / 515 Inj 500 ML @ 250 mls/hr IV.SIG Q12H BECKY Rx#:[id number] fentaNYL 10 mcg/mL Premix Drip 250 / 250 2,500 mcg In 250 ml @ 50 MCG/HR 5 mls/hr IV.SIG TITRATE PRN Rx #:[id number] Oral 0 / 0 0 / 0 Tube Feeding 790 / 790 574 / 574 Tube Irrigant 60 / 60 60 / 60 Water Bolus Amount 200 / 200 400 / 400 Output: Urine 0 / 0 0 / 0 Stool 0 / 0 0 / 0 Urine/Stool Mix 20 / 20 50 / 50 Urine Amount (Catheter) 3250 / 3250 4350 / 4350 Indwelling Urethral Catheter 3250 / 3250 4350 / 4350 Other: Date of Last Bowel Movement 06/09/18 06/10/18 06/10/18 # Bowel Movements 0 0 # Incontinent Bowel Movements 0 0 Physical Exam: CONSTITUTIONAL/GENERAL: morbidly obese female, sedated on vent TUBES/LINES/DRAINS: IJ, rectal bag, gutiérrez, ETtube, soft restraints upper extremities, OG tube SKIN: Very pale. Rash left axilla, marked striations left panniculus. 3-4 mm ulceration left pannus. right third toe dusky with nail changes EYES: PERRL. No scleral icterus. Fundi not examined. ENT: Nose without bleeding or purulent drainage. Throat exam limited by ET tube CARDIOVASCULAR: tachycardic without murmurs. No JVD. Generalized peripheral edema. RESPIRATORY/CHEST: Respirations even and unlabored via ET tube to mechanical vent. Course breath sounds, diminished air movement. + wheezing GASTROINTESTINAL: Abdomen soft, obese, +hernia. Bowel sounds present. + rectal bag, + tube feed infusing via OG tube GENITOURINARY: Without palpable bladder distension. Gutiérrez catheter in place. Skin on lower panniculus is macerated MUSCULOSKELETAL: generalized edema. BUE soft restraints NEUROLOGICAL: opens eyes. Does not track examiner. PSYCHIATRIC: No apparent anxiety, limited assessment due to clinical condition Diagnostic Tests Laboratory: Laboratory Results - last 72 hr 06/07/18 06/07/18 06/08/18 14:30 17:18 00:59 WBC RBC Hgb Hct MCV MCH MCHC RDW Plt Count MPV Neut % (Auto) Lymph % (Auto) [place] % (Auto) Eos % (Auto) Baso % (Auto) Neut # (Auto) Lymph # (Auto) [place] # (Auto) Eos # (Auto) Baso # (Auto) WBC Differential Differential Comment Sodium Potassium Chloride Carbon Dioxide Anion Gap BUN Creatinine Estimated GFR POC Glucose 177 H 158 H Random Glucose Lactic Acid Calcium Phosphorus 3.5 D Magnesium Total Bilirubin AST ALT Alkaline Phosphatase Ammonia Troponin I Total Protein Albumin Vancomycin Trough 06/08/18 06/08/18 06/08/18 02:23 02:23 06:50 WBC 7.9 RBC 5.16 Hgb 14.0 Hct 44.8 MCV 86.7 MCH 27.1 MCHC 31.3 L RDW 16.6 Plt Count 120 L MPV 8.4 Neut % (Auto) 82.1 H Lymph % (Auto) 8.9 L [place] % (Auto) 7.3 Eos % (Auto) 1.3 Baso % (Auto) 0.4 Neut # (Auto) 6.5 Lymph # (Auto) 0.7 L [place] # (Auto) 0.6 Eos # (Auto) 0.1 Baso # (Auto) 0.0 WBC Differential . Differential Comment Auto diff final Sodium 139 Potassium 4.4 Chloride 104 Carbon Dioxide 28.0 Anion Gap 7 BUN 35 H Creatinine 0.77 Estimated GFR 75 L POC Glucose 168 H Random Glucose 136 H Lactic Acid Calcium 8.0 L Phosphorus 2.4 L D Magnesium 1.9 Total Bilirubin 0.5 AST 13 L ALT 33 Alkaline Phosphatase 57 Ammonia Troponin I Total Protein 5.5 L Albumin 2.4 L Vancomycin Trough 10.9 H 06/08/18 06/08/18 06/08/18 13:08 15:34 18:31 WBC RBC Hgb Hct MCV MCH MCHC RDW Plt Count MPV Neut % (Auto) Lymph % (Auto) [place] % (Auto) Eos % (Auto) Baso % (Auto) Neut # (Auto) Lymph # (Auto) [place] # (Auto) Eos # (Auto) Baso # (Auto) WBC Differential Differential Comment Sodium Potassium Chloride Carbon Dioxide Anion Gap BUN Creatinine Estimated GFR POC Glucose 289 H 274 H Random Glucose Lactic Acid 1.5 Calcium Phosphorus Magnesium Total Bilirubin AST ALT Alkaline Phosphatase Ammonia Troponin I Total Protein Albumin Vancomycin Trough 06/08/18 06/09/18 06/09/18 23:54 04:00 04:00 WBC 7.4 RBC 4.98 Hgb 13.6 Hct 43.8 MCV 87.9 MCH 27.3 MCHC 31.1 L RDW 16.6 Plt Count 128 L MPV 8.9 Neut % (Auto) 86.3 H Lymph % (Auto) 5.5 L [place] % (Auto) 7.6 Eos % (Auto) 0.6 Baso % (Auto) 0.0 Neut # (Auto) 6.4 Lymph # (Auto) 0.4 L [place] # (Auto) 0.6 Eos # (Auto) 0.0 Baso # (Auto) 0.0 WBC Differential . Differential Comment Auto diff final Sodium 138 Potassium 4.6 Chloride 103 Carbon Dioxide 30.6 Anion Gap 4 L BUN 31 H Creatinine 0.75 Estimated GFR 77 L POC Glucose 260 H Random Glucose 258 H D Lactic Acid Calcium 7.9 L Phosphorus 2.8 Magnesium 1.9 Total Bilirubin 0.4 AST 8 L ALT 30 Alkaline Phosphatase 57 Ammonia Troponin I Total Protein 5.5 L Albumin 2.2 L Vancomycin Trough 06/09/18 06/09/18 06/09/18 04:00 05:41 12:31 WBC RBC Hgb Hct MCV MCH MCHC RDW Plt Count MPV Neut % (Auto) Lymph % (Auto) [place] % (Auto) Eos % (Auto) Baso % (Auto) Neut # (Auto) Lymph # (Auto) [place] # (Auto) Eos # (Auto) Baso # (Auto) WBC Differential Differential Comment Sodium Potassium Chloride Carbon Dioxide Anion Gap BUN Creatinine Estimated GFR POC Glucose 234 H 298 H Random Glucose Lactic Acid Calcium Phosphorus Magnesium Total Bilirubin AST ALT Alkaline Phosphatase Ammonia 11 Troponin I Total Protein Albumin Vancomycin Trough 06/09/18 06/09/18 06/10/18 16:51 23:57 04:15 WBC 7.1 RBC 5.26 Hgb 14.2 Hct 45.5 MCV 86.5 MCH 27.0 MCHC 31.2 L RDW 16.9 Plt Count 151 MPV 8.6 Neut % (Auto) 82.1 H Lymph % (Auto) 9.4 [place] % (Auto) 7.5 Eos % (Auto) 0.7 Baso % (Auto) 0.3 Neut # (Auto) 5.9 Lymph # (Auto) 0.7 L [place] # (Auto) 0.5 Eos # (Auto) 0.0 Baso # (Auto) 0.0 WBC Differential . Differential Comment Auto diff final Sodium Potassium Chloride Carbon Dioxide Anion Gap BUN Creatinine Estimated GFR POC Glucose 334 H 164 H Random Glucose Lactic Acid Calcium Phosphorus Magnesium Total Bilirubin AST ALT Alkaline Phosphatase Ammonia Troponin I Total Protein Albumin Vancomycin Trough 06/10/18 06/10/18 04:15 05:33 WBC RBC Hgb Hct MCV MCH MCHC RDW Plt Count MPV Neut % (Auto) Lymph % (Auto) [place] % (Auto) Eos % (Auto) Baso % (Auto) Neut # (Auto) Lymph # (Auto) [place] # (Auto) Eos # (Auto) Baso # (Auto) WBC Differential Differential Comment Sodium 141 Potassium 4.1 Chloride 105 Carbon Dioxide 27.1 Anion Gap 9 BUN 24 H Creatinine 0.64 Estimated GFR Greater than 89 POC Glucose 103 Random Glucose 115 H D Lactic Acid Calcium 8.9 D Phosphorus 2.3 L Magnesium 2.3 Total Bilirubin AST ALT Alkaline Phosphatase Ammonia Troponin I Less than 0.02 L Total Protein Albumin Vancomycin Trough 23.6 H Result Diagrams: 06/18/18 05:45 06/18/18 05:45 Imaging: ITS Impressions Abdomen/Bladder Ultrasound 05/31/18 00:00 CONCLUSION: 1. No obstructive uropathy or other acute abnormality demonstrated. 2. Benign cyst of the right kidney. Abdomen/Pelvis CT 05/31/18 00:00 CONCLUSION: 1. Cholelithiasis. 2. Colonic diverticulosis without definitive evidence for diverticulitis. 3. Prominent uterus with hypodense 6 cm mass anteriorly likely reflecting a pedunculated fibroid. 4. Appendix is not visualized and potentially obscured by the uterine fibroid. 5. Large fat-containing left-sided anterior abdominal wall hernia. 6. Diffuse soft tissue edema in the inferior abdominal pannus. Head CT 05/31/18 00:00 CONCLUSION: 1. No acute intracranial abnormality. 2. Minimal paranasal sinus mucosal disease. Foot X-Ray 06/02/18 00:00 CONCLUSION: There is a destructive change at the distal aspect of the third distal phalanx at the tuft. Osteomyelitis needs be considered. 0.4 cm calcific density seen at the proximal lateral plantar aspect of the third digit. Head MRI 06/07/18 00:00 CONCLUSION: 1. Senescent changes with mild periventricular ischemic white matter demyelination. 2. Otherwise, unremarkable MRI examination of the brain. Specifically, no evidence for acute infarction. 3. Paranasal sinus disease. Chest X-Ray 06/10/18 06:00 CONCLUSION: Considerable improvement left greater than right basilar consolidation and small effusions. Procedures: 05/31 intubated 05/31 IJ placed 06/09 IJ placed Assessment and Plan Pertinent Non-Medical Issues: Psychosocial: 3 months ago moved from [place] to [place]. Lives at home with son Shad, daughter Yissel Sanchez" and Shad's . Shad and his take care of pt. She is originally from . She worked at [employer] for 14 years. She was but her 2 years ago. Spiritual: per son she identified with no particular bahai Legal: pt incapacitated to make decisions at this time. It is not clear if she will regain that capacity. [place] statutes medical decision making would fall to the majority of her 6 children. Ethical issues impacting care: none identified Important Contacts: Son Shad (local) [phone] (local "emergency contact" spokesperson per the other children) Daughter Yissel "Nallely" (local) [phone] [place] Children: Adrian Scott [phone] Adarsh "DJ" Tyler [phone] Sarwat Osborne (incarcerated) - [facility], [place] P[facility] Captain Hanley, Prognosis: 67 yo morbidly obese female with hx tobacco abuse, diabetes who presented with progressive weakness and was found to be septic with SUNIL, UTI. She developed respiratory distress and was intubated. Her kidney function has improved somewhat. Her underlying morbid obesity may significantly impair her ability to recover from a respiratory standpoint, as will her likely underlying COPD. Prior she was mostly sedentary and unable to care for herself; much of that burden had fallen to her son who admittedly is quite overwhelmed. If she requires ventilatory support beyond another week, she will require tracheostomy and feeding tube. Should she recover enough to be extubated, she will need placement in a nursing facility. Her numerous comorbidities and poor prior health status put her at significant risk for continued complications and decline. Code Status: Alternative Code (intubation only) Plan: * LEGAL DECISION MAKER - pt incapacitated to make decisions at this time. It is not clear if she will regain that capacity. [place] statutes medical decision making would fall to the majority of her 5 children. Thus far 4 of 5 are participating. contact has not yet been made with Adrian. * GOALS - The children are making an effort to work together. They appoint [facility] local emergency spokesperson. They acknowledge that she was knowingly "killing herself" and seem to all be in agreement that "she didn't want to suffer like her [their father]." During prior interactions indicated patient would probably not want a tracheostomy- family teleconference tentatively planned for wednesday. They are open to ongoing conversations as clinical course evolves, and as tracheostomy decision grows closer. Advised that likely by this /Wednesday tracheostomy would be planned if she is not looking like will be able to medically extubate. * CODE STATUS - alternative code, intubation only * SYMPTOMS - * dyspnea - multifactorial. intubated 05/31 after change in mental status. reported hx ANIVAL untreated, COPD, heavy tobacco use, ?pickwick syndrome, +atrial flutter with RVR. ID feels respiratory issues 2/2 COPD exacerbation in obese smoker. Sedation lightened, CPAP trial in progress PS 18, PEEP 8, FiO2 45%. No dyspnea observed. Has scheduled duonebs, steroid taper * pain - multifactorial 2/2 multiples lines, catheter, discomfort from ET tube. Appears comfortable on my eval. Has fentanyl drip --sedation lightened/ held for CPAP trial. Her HR increases to low 100's with any stimulus/ interventions * weakness/debility - 2/2 morbid obesity, sedentary lifestyle and subsequent deconditioning, sepsis. Was having lower extremity weakness for prior 3 weeks and on admission was unable to get up. PT following. * Teleconference planned for wednesday bet 10-03 * Palliative care will continue to follow as hospital course evolves to assist pt/decision makers weight benefits and burdens of treatment options, and assist with symptoms of palliative concern Attestation Collaborating MD Comments: Chart reviewed. Case discussed with palliative care SYSTEMS PROGRAMMER ANALYST. Above SYSTEMS PROGRAMMER ANALYST note reviewed and I concur. .
[2018-06-10] MEDS: Collagenase Oint 30 GM Tube TOPICAL SCH (13:26)
--- NOTE | 2018-06-10 15:11 | ECG ---
Date Performed: 06/09/2018 Time Performed: 19:55:44 PTAGE: 67 years EKG: Atrial fibrillation Right axis deviation Extensive ST-T changes may be due to myocardial is chemia Low QRS voltages in precordial leads Basleine Artifact Abnormal ECG PREVIOUS TRACING : 06/09/2018 @05.00 When compared to the prior EKG,Patient now appears to be i n atrial fibrillation. DOCTOR: Clare Peacock Interpretating Date/Time 06/10/2018 15:11:19
[2018-06-10] MEDS ORDERED: Potassium Phos/Sodium Phos 250 MG Tablet PO ONE (15:16)
--- NOTE | 2018-06-10 15:21 | P.PNCC ---
Subjective Subjective Remarks/Hospital Course: Mrs. Scott is a 67-year-old female with past medical history significant for morbid obesity, type 2 diabetes, hypertension, probable COPD who was brought in by the family yesterday night because of increasing weakness and lethargic, this was ongoing for last 2 weeks got worse over the last 2 days. Unable to get detailed history from patient due to lethargy. ER workup showed patient had a urinary tract infection and sepsis, also chest x-ray showed bilateral interstitial infiltrates, and LLL consolidation. There is also evidence of acute kidney injury with creatinine up to 2.59, BUN 89. Intermittently having tachyarrhythmia/atrial flutter with rate in in 130s. Patient was admitted to the hospital service. At the time of hospitalist (Dr. Mckeon) evaluation patient was very lethargic and ABG showed a pH of 7.08 and a PCO2 of 91, PO2 was 70 on 5 L nasal cannula. Patient was immediately placed on BiPAP. Approximately after 45 minutes ABG was repeat showed only marginal improvement pH of 7.12 and PCO2 of 84. Patient was emergently transferred to the ICU and critical care was consulted I evaluated the patient in the ICU. She is currently on BiPAP 15/. Patient is lethargic, even though arousable she falls right back to sleep. Airway protection was questionable. With severe hypercarbic respiratory failure complicated with sepsis, metabolic encephalopathy and acute kidney failure, decision was made to intubate the patient. I endotracheally intubate the patient in placed on the mechanical ventilation. Prior to and post intubation patient heart rate remained in 130s. Hypotensive postintubation, stat 2 L fluid boluses given. Also started on Levophed to keep map above 65. Patient had been placed on Rocephin and will discontinue this and start renally dosed cefepime, add azithromycin for atypical coverage. ID consulted for questionable scabies and sepsis with shock 06/02: Remains critically ill but stabilizing more. ABG shows correction of severe hypercapnia. FiO2 remains at 50%. Urine output adequate BUN remains elevated creatinine slightly improved. Received treatment with permethrin 06/02: Currently afebrile. Bradycardic on the ventilator. Will adjust sedation to midazolam and fentanyl drips. Tolerating tube feeds at 30 cc an hour. XRT of the right foot ordered. 06/03 No events overnight. Sedated with Versed and Fentanyl drips. Afebrile. 06/04: Remains on midazolam drip at 4 mg an hour and fentanyl drip at 100 mcg an hour. Tolerating tube feeds. Currently afebrile. Failed spontaneous breathing trials today. 06/05: Ventilator settings unchanged. Remains on midazolam drip at 5 mg an hour and fentanyl drip at 100 mcg an hour. Tolerating tube feeds. We will reattempt spontaneous breathing trials today. 06/06 Patient is sedated with Fentanyl and versed drips and intubated. Afebrile. 06/07: Afebrile. Remains on midazolam drip at 5 mg an hour and fentanyl drip at 100 mcg an hour. MRI brain revealed no acute intracranial findings. Opens eyes. Not following commands currently. 06/08: Afebrile. Remains on midazolam drip. Opens eyes but not following commands currently. Tolerating tube feeds at goal. Positive BM. 06/09: Tolerated CPAP trials 8 hours yesterday. Not tolerating today. Opens eyes but not follows commands. Tube feeds at goal. Positive BM. Remains on midazolam and fentanyl drips. Subjective 06/10: Afebrile. Currently on CPAP trial. 07/07 at 45%. Eyes are open. Currently in A. fib rate controlled. Will start on heparin drip. Objective Vital Signs / I&O: Vital Signs 06/09/18 16:00 06/09/18 16:49 06/09/18 17:45 Temperature 99.1 F Pulse Rate 102 H 65 86 Respiratory Rate 13 18 18 Blood Pressure 118/72 118/72 Pulse Oximetry 95 93 L 06/09/18 17:55 06/09/18 18:00 06/09/18 18:15 Temperature Pulse Rate 65 91 H 93 H Respiratory Rate 6 L 18 Blood Pressure 119/86 119/80 Pulse Oximetry 95 94 L 06/09/18 18:30 06/09/18 18:45 06/09/18 19:00 Temperature Pulse Rate 87 83 87 Respiratory Rate 18 18 Blood Pressure 116/73 121/79 129/83 Pulse Oximetry 94 L 97 98 06/09/18 19:16 06/09/18 19:32 06/09/18 19:37 Temperature Pulse Rate 81 120 H 89 Respiratory Rate 18 18 18 Blood Pressure 138/87 56/37 L 69/44 L Pulse Oximetry 98 96 97 07/19/18 19:44 06/09/18 19:45 06/09/18 20:00 Temperature 98.1 F Pulse Rate 101 H 88 87 Respiratory Rate 18 18 18 Blood Pressure 117/79 118/81 Pulse Oximetry 96 96 97 06/09/18 20:01 06/09/18 20:19 06/09/18 20:46 Temperature Pulse Rate 86 117 H 154 H Respiratory Rate 18 19 25 H Blood Pressure 134/71 133/76 136/84 Pulse Oximetry 97 98 91 L 06/09/18 21:00 06/09/18 21:15 06/09/18 21:30 Temperature Pulse Rate 125 H 110 H 95 H Respiratory Rate 18 18 18 Blood Pressure 112/67 110/81 Pulse Oximetry 94 L 93 L 94 L 06/09/18 21:50 06/09/18 22:00 06/09/18 22:15 Temperature Pulse Rate 127 H 78 82 Respiratory Rate 19 19 18 Blood Pressure 120/87 103/74 116/75 Pulse Oximetry 96 95 95 06/09/18 22:39 06/09/18 22:45 06/09/18 23:00 Temperature Pulse Rate 80 78 77 Respiratory Rate 18 18 18 Blood Pressure 97/63 L 92/59 L 90/63 L Pulse Oximetry 92 L 93 L 94 L 06/09/18 23:15 06/09/18 23:30 06/09/18 23:46 Temperature Pulse Rate 79 76 75 Respiratory Rate 18 18 18 Blood Pressure 88/64 L 93/66 L 114/80 Pulse Oximetry 94 L 94 L 97 06/10/18 00:00 06/10/18 00:16 06/10/18 00:30 Temperature 98.3 F Pulse Rate 70 70 71 Respiratory Rate 18 18 18 Blood Pressure 93/68 L 104/70 88/64 L Pulse Oximetry 95 96 94 L 06/10/18 00:45 06/10/18 01:00 06/10/18 01:01 Temperature Pulse Rate 67 68 72 Respiratory Rate 18 18 22 Blood Pressure 97/70 L 101/76 Pulse Oximetry 95 94 L 94 L 06/10/18 01:16 06/10/18 01:31 06/10/18 01:46 Temperature Pulse Rate 67 69 63 Respiratory Rate 18 18 18 Blood Pressure 96/72 L 105/71 94/62 L Pulse Oximetry 95 96 95 06/10/18 02:00 06/10/18 02:15 06/10/18 02:31 Temperature Pulse Rate 62 62 60 Respiratory Rate 18 18 18 Blood Pressure 103/71 103/75 105/75 Pulse Oximetry 94 L 94 L 93 L 06/10/18 02:46 06/10/18 03:00 06/10/18 03:01 Temperature Pulse Rate 62 63 58 L Respiratory Rate 21 21 23 Blood Pressure 106/63 115/72 Pulse Oximetry 93 L 93 L 92 L 06/10/18 03:15 06/10/18 03:32 06/10/18 03:39 Temperature Pulse Rate 61 58 L 58 L Respiratory Rate 24 26 H 18 Blood Pressure 109/69 120/81 Pulse Oximetry 92 L 91 L 92 L 06/10/18 03:46 06/10/18 04:00 06/10/18 04:01 Temperature 98.6 F Pulse Rate 58 L 55 L 59 L Respiratory Rate 18 18 18 Blood Pressure 121/69 114/76 Pulse Oximetry 92 L 92 L 91 L 06/10/18 04:16 06/10/18 04:31 06/10/18 04:46 Temperature Pulse Rate 58 L 57 L 59 L Respiratory Rate 18 18 18 Blood Pressure 118/70 116/68 113/72 Pulse Oximetry 92 L 91 L 93 L 06/10/18 05:00 06/10/18 05:01 06/10/18 05:16 Temperature Pulse Rate 61 56 L 76 Respiratory Rate 18 18 18 Blood Pressure 112/73 109/70 Pulse Oximetry 91 L 91 L 91 L 06/10/18 05:31 06/10/18 06:00 06/10/18 06:56 Temperature Pulse Rate 63 64 57 L Respiratory Rate 18 18 18 Blood Pressure 106/73 90/62 L Pulse Oximetry 92 L 92 L 94 L 06/10/18 07:00 06/10/18 08:00 06/10/18 10:00 Temperature 98.3 F Pulse Rate 58 L 104 H 104 H Respiratory Rate 18 14 Blood Pressure 101/57 L Pulse Oximetry 93 L 93 L 06/10/18 11:00 06/10/18 11:38 06/10/18 12:00 Temperature 97.4 F L Pulse Rate 115 H 140 H Respiratory Rate 18 20 14 Blood Pressure 114/62 Pulse Oximetry 92 L 06/10/18 14:00 Temperature Pulse Rate 104 H Respiratory Rate Blood Pressure Pulse Oximetry Intake & Output 06/09/18 06/10/18 06/10/18 18:59 06:59 18:59 Intake Total 1815 / 1815 3149 / 3149 Output Total 3270 / 3270 4400 / 4400 Balance -1455 / -1455 -1251 / -1251 Weight 150.2 kg Intake: IV 765 / 765 2115 / 2115 Precedex Inj 1,000 MCG In NS 250 / 250 Inj 240 ML @ 0.2 MCG/KG/HR 8.01 mls/hr IV.CONT TITRATE PRN Rx# :[id number] Versed Inj 50 mg In 50 ml @ 2 50 / 50 MG/HR 2 mls/hr IV.CONT TITRATE PRN Rx#:[id number] 1/2 Normal Saline Inj 1,000 ML 1000 / 1000 @ 20 mls/hr IV.CONT .Q24H BECKY Rx#:[id number] Maxipime Inj 2,000 MG In NS Inj 100 / 100 100 / 100 100 ML @ 200 mls/hr IV.SIG Q12H BECKY Rx#:[id number] Magnesium Sulfate 1 gm/D5W 100 100 / 100 ml Premix 100 ML @ 100 mls/hr IV.SIG Q1H BECKY Rx#:[id number] Vancomycin Inj 1,500 MG In NS 515 / 515 515 / 515 Inj 500 ML @ 250 mls/hr IV.SIG Q12H BECKY Rx#:[id number] fentaNYL 10 mcg/mL Premix Drip 250 / 250 2,500 mcg In 250 ml @ 50 MCG/HR 5 mls/hr IV.SIG TITRATE PRN Rx #:[id number] Oral 0 / 0 0 / 0 Tube Feeding 790 / 790 574 / 574 Tube Irrigant 60 / 60 60 / 60 Water Bolus Amount 200 / 200 400 / 400 Output: Urine 0 / 0 0 / 0 Stool 0 / 0 0 / 0 Urine/Stool Mix 20 / 20 50 / 50 Urine Amount (Catheter) 3250 / 3250 4350 / 4350 Indwelling Urethral Catheter 3250 / 3250 4350 / 4350 Other: Date of Last Bowel Movement 06/09/18 06/10/18 06/10/18 # Bowel Movements 0 0 # Incontinent Bowel Movements 0 0 Result Diagrams: 06/10/18 04:15 06/10/18 04:15 Other Results: Microbiology 05/30/18 22:21 Blood - Peripheral Aerobic Blood Culture - Final No growth in 5 days 05/30/18 22:21 Blood - Peripheral Anaerobic Blood Culture - Final No growth in 5 days 05/30/18 22:21 Blood - Peripheral Aerobic Blood Culture - Final No growth in 5 days 05/30/18 22:21 Blood - Peripheral Anaerobic Blood Culture - Final No growth in 5 days 05/31/18 14:50 Wound - Abdominal Gram Stain - Final 05/31/18 14:50 Wound - Abdominal Wound Culture - Final S. aureus MRSA 05/31/18 13:08 Urine - Catheterized Urine Streptococcus pneumoniae Antigen ( M - Final Presumptive negative for streptococcus pneumoniae antigen, suggesting no current or recent infection. Infection due to Streptococcus pneumoniae cannot be ruled out since the antigen present in the sample may be below the detection limit of the test. 05/31/18 13:08 Urine - Catheterized Urine Legionella Antigen - Final Presumptive negative for Legionella pneumophila serogroup 1 antigen in urine, suggesting no recent or recurrent infection. Infection due to Legionella cannot be ruled out since other serogroups and species may cause disease, antigen may not be present in urine in early infection, and the level of antigen present in the urine may be below the detection limit of the test. 05/30/18 22:56 Clean Catch Urine Urine Culture - Final 50-100,000 cfu/mL mixed leesa (probable contaminants ) Imaging: ITS Impressions Abdomen/Bladder Ultrasound 05/31/18 00:00 CONCLUSION: 1. No obstructive uropathy or other acute abnormality demonstrated. 2. Benign cyst of the right kidney. Abdomen/Pelvis CT 05/31/18 00:00 CONCLUSION: 1. Cholelithiasis. 2. Colonic diverticulosis without definitive evidence for diverticulitis. 3. Prominent uterus with hypodense 6 cm mass anteriorly likely reflecting a pedunculated fibroid. 4. Appendix is not visualized and potentially obscured by the uterine fibroid. 5. Large fat-containing left-sided anterior abdominal wall hernia. 6. Diffuse soft tissue edema in the inferior abdominal pannus. Head CT 05/31/18 00:00 CONCLUSION: 1. No acute intracranial abnormality. 2. Minimal paranasal sinus mucosal disease. Foot X-Ray 06/02/18 00:00 CONCLUSION: There is a destructive change at the distal aspect of the third distal phalanx at the tuft. Osteomyelitis needs be considered. 0.4 cm calcific density seen at the proximal lateral plantar aspect of the third digit. Head MRI 06/07/18 00:00 CONCLUSION: 1. Senescent changes with mild periventricular ischemic white matter demyelination. 2. Otherwise, unremarkable MRI examination of the brain. Specifically, no evidence for acute infarction. 3. Paranasal sinus disease. Chest X-Ray 06/10/18 06:00 CONCLUSION: Considerable improvement left greater than right basilar consolidation and small effusions. Objective Remarks: GENERAL: 67-year-old female currently resting in bed currently orotracheally intubated SKIN: Cool and dry. Tinea cruris, axillary region and under the breasts. Excoriated pannus in back. Purple rash and excoriation bilateral lower extremity HEAD: Atraumatic. Normocephalic. No temporal wasting, or tenderness. EYES: Pupils equal, round and reactive to light. Extraocular movements are present EARS, NOSE AND THROAT: Edentulous. Mucous membranes dry. Orotracheally intubated NECK: Short and obese neck, supple, right IJ is clean dry and intact. CARDIOVASCULAR: Diminished heart sounds. IRR. No murmurs, rubs or gallops heard RESPIRATORY: Diminished breath sounds throughout due to body habitus. No wheezing ABDOMEN: Obese abdomen, soft, with multiple striae and excoriations EXTREMITIES: Positive pedal edema. Has mild mottling both feet. Purple rash and excoriation bilateral lower extremity. Necrotic appearing right third toe. NEUROLOGICAL: Cranial nerves appear to be grossly intact. Positive gag and cough. Spontaneously moves extremities to stimulation. Currently spontaneously opens eyes. She is following commands at the present time. Assessment and Plan - Assessment and Plan Plan: NEURO/Psych: Acute severe encephalopathy secondary to severe sepsis/hypercarbia Depression disorder NOS Chronic benzodiazepine use On midazolam drip at 2 mg an hour and fentanyl drip at 50 mcg an hour for sedation. Daily sedation vacation. Goal of RASS -2 CT brain on admission revealed no acute intracranial findings 06/06 EEG, severe encephalopathyepileptiform activity Acetaminophen 650 every 6 hours as needed fever Holding citalopram 20 mg daily/home medication for depression. Resume clinically indicated On lorazepam 0.5 mg at night as needed. Currently on 1 mg every 15 minutes for possible seizure activity? MRI brain revealed no acute intracranial abnormalities RESP: Acute respiratory failure/hypercarbic and hypoxemic Acute COPD exacerbation Probable community-acquired pneumonia On PC/AC RR 18, IP: 23, IT:1.0, PEEP:8, FIO2 45 Ventilator bundle -Albuterol/ipratropium aerosols every 4 hours scheduled and albuterol aerosols every 2 hours as needed Continue IV methylprednisolone succinate 40 mg every 12 Spontaneous breathing trials as clinically indicated CV: Atrial flutter with rapid ventricular response Sinus bradycardia currently sinus tachycardia History of essential hypertension History of dyslipidemia Off all vasopressors -Echo showed EF 50-55% -Monitor HR and BP keep MAP>65mmHg Currently on pravastatin 80 mg daily, hospital substitution for simvastatin 40 mg daily which is her home medication On digoxin daily. Check level in a.m. 06/11 GI: Hypoalbuminemia Cholelithiasis Sigmoid diverticulosis Abdominal wall hernia/left-sided Hypoalbuminemia -on tube feeds with vital high-protein goal 65 cc an hour. Lansoprazole for GI prophylaxis Docusate sodium/senna 1 tablet twice daily for bowel regimen CT abdomen/pelvis revealed cholelithiasis, sigmoid colonic diverticulosis, and abdominal wall hernia Renal/[employer]/: Acute kidney injury resolving 6 cm uterine fibroid Right renal cyst -Monitor renal function, I/O's. avoid nephrotoxins -Renal ultrasound -right renal cyst otherwise no signs of obstruction. -Nephrology is following, Dr. Narvaez On 12NS@20ml/hr, free water 200ml Q6 ID: UTI Wound cultures positive for MRSA -ID following, continue cefepime and vancomycin per IDs recommendation. Azithromycin discontinued 06/03 ceftaroline discontinued 06/06 Monitor or signs of infections (Fever, WBC) Right 3rd toe and other skin lesions/cellulitis on LLE likely sources of infection Xray foot: There is a destructive change at the distal aspect of the third distal phalanx at the tuft. 0.4 cm calcific density seen at the proximal lateral plantar aspect of the third digit. Podiatry is following, might need right third digit amputation per Podiatry Mupirocin to nares twice daily Pertinent cultures 05/31 -wound culture -MRSA 05/30 -blood cultures 2 -no growth 05/30 -UA -50- 100,000 -s/p Permethrin cream 5% for possible scabies HEME: Thrombocytopenia No indication for transfusion of blood products at this time -Monitor CBC, CMP, coags FEN/ENDO: Diabetes mellitus Hypophosphatemia Holding home medications Metformin 1000 mg twice daily and glipizide at 5 mg twice daily. TSH 0.97 Insulin detemir 32 units BID and SSI with Novolin R q. 6 hour Accu-Cheks MSK: Elevated BMI Necrotic right third toe. Xray foot: There is a destructive change at the distal aspect of the third distal phalanx at the tuft. Podiatry is following, recommend amputation when clinically stable Wt loss encouraged PT evaluate and treat PROPH: -Bilateral lower extremity SCDs. Heparin drip provides DVT prophylaxis. Lansoprazole 30 mg daily LINES: -Left IJ central line placed 05/31/18 discontinued 06/09. Right IJ CVL placed Palliative care is following Level 3 follow-up
[2018-06-10] MEDS ORDERED: Sodium Phosphate Inj 15 MMOL in Sodium Chlor 0.9% Inj 100 ML IV.SIG ONE (16:00)
[2018-06-10] MEDS: Digoxin Inj 500 MCG/2 ML Ampul IV.PUSH SCH (16:33)
[2018-06-10] MEDS: Midazolam 50 MG/50 ML Inj 50 MG/50 ML BAG IV.CONT PRN (17:22)
[2018-06-10 17:24] LABS: Activated Partial Thrombo Time 24.1 sec (24.3-30.1)
[2018-06-10] MEDS: Heparin Drip 25,000 UNIT/250 ML BAG IV.CONT PRN (17:50)
[2018-06-10] MEDS: Sodium Chloride 0.45 % Inj 1,000 ML IV.CONT SCH (21:10)
[2018-06-10] MEDS: Hypromellose 0.3% Opth Gel 10 GM Bottle EACH EYE SCH (21:11)
[2018-06-11] MEDS: Oral Hygiene Kit OROPHARYNG SCH ×4 (05:41→23:55)
[2018-06-11] MEDS: Midazolam 50 MG/50 ML Inj 50 MG/50 ML BAG IV.CONT PRN (05:43)
[2018-06-11 05:50] LABS: Baso % (Auto) 0.6 % (0.0-2.0); Eos # (Auto) 0.1 th/mm3 (0.0-0.4); Eos % (Auto) 1.2 % (0.0-4.0); Hematocrit 43.7 % (35.0-46.0); Hemoglobin 13.5 gm/dL (11.6-15.3); Lymph # (Auto) 0.6 th/mm3 (1.0-4.8); Lymph % (Auto) 7.2 % (9.0-44.0); Mean Corpuscular Hemoglobin 27.1 pg (27.0-34.0); Mean Corpuscular Volume 87.7 fL (80.0-100.0); Mean Platelet Volume 8.7 fL (7.0-11.0); Mono # (Auto) 0.6 th/mm3 (0.0-0.9); Mono % (Auto) 7.4 % (0.0-8.0); Neut # (Auto) 6.5 th/mm3 (1.8-7.7); Neut % (Auto) 83.6 % (16.0-70.0); Platelet Count 137 th/mm3 (150-450); Red Blood Count 4.99 mil/mm3 (4.00-5.30); Red Cell Distribution Width 17.2 % (11.6-17.2); White Blood Count 7.8 th/mm3 (4.0-11.0)
[2018-06-11 05:54] LABS: Mean Corpuscular HGB Conc 30.9 % (32.0-36.0)
[2018-06-11] MEDS: Insulin NovoLIN Regular Correctional Sugar Inj SQ SCH ×4 (06:02→23:55)
[2018-06-11 06:15] LABS: Calcium 8.5 mg/dL (8.5-10.1); Carbon Dioxide 27.8 meq/L (21.0-32.0); Magnesium 1.8 mg/dL (1.5-2.5); Potassium 4.4 meq/L (3.5-5.1)
[2018-06-11 06:19] LABS: Phosphorus 3.7 mg/dL (2.5-4.9)
[2018-06-11] MEDS: MethylPREDNISolone Sod Succinate Inj 40 MG/ML Vial IV.PUSH SCH (08:45)
[2018-06-11] MEDS: Mupirocin 2% Nasal Oint Topical Syringe EACH NARE SCH ×2 (08:46→20:26)
[2018-06-11] MEDS: Chlorhexidine 0.12% Oral Kit 15 ML UDC OROPHARYNG SCH ×2 (08:46→20:21)
[2018-06-11] MEDS: Digoxin Inj 500 MCG/2 ML Ampul IV.PUSH SCH (08:46)
[2018-06-11] MEDS: Insulin Detemir Inj 1,000 UNIT/10 ML Vial SQ SCH ×2 (08:47→20:26)
[2018-06-11] MEDS: Senna/Docusate Sodium 8.6/50 MG Tablet PO SCH ×2 (08:47→20:26)
[2018-06-11] MEDS: Collagenase Oint 30 GM Tube TOPICAL SCH (08:49)
[2018-06-11] MEDS: fentaNYL 10 mcg/mL Premix Drip 2,500 MCG/250 ML BAG IV.SIG PRN (11:17)
--- NOTE | 2018-06-11 15:26 | P.PNCC ---
Subjective Subjective Remarks/Hospital Course: Mrs. Scott is a 67-year-old female with past medical history significant for morbid obesity, type 2 diabetes, hypertension, probable COPD who was brought in by the family yesterday night because of increasing weakness and lethargic, this was ongoing for last 2 weeks got worse over the last 2 days. Unable to get detailed history from patient due to lethargy. ER workup showed patient had a urinary tract infection and sepsis, also chest x-ray showed bilateral interstitial infiltrates, and LLL consolidation. There is also evidence of acute kidney injury with creatinine up to 2.59, BUN 89. Intermittently having tachyarrhythmia/atrial flutter with rate in in 130s. Patient was admitted to the hospital service. At the time of hospitalist (Dr. Mckeon) evaluation patient was very lethargic and ABG showed a pH of 7.08 and a PCO2 of 91, PO2 was 70 on 5 L nasal cannula. Patient was immediately placed on BiPAP. Approximately after 45 minutes ABG was repeat showed only marginal improvement pH of 7.12 and PCO2 of 84. Patient was emergently transferred to the ICU and critical care was consulted I evaluated the patient in the ICU. She is currently on BiPAP 15/. Patient is lethargic, even though arousable she falls right back to sleep. Airway protection was questionable. With severe hypercarbic respiratory failure complicated with sepsis, metabolic encephalopathy and acute kidney failure, decision was made to intubate the patient. I endotracheally intubate the patient in placed on the mechanical ventilation. Prior to and post intubation patient heart rate remained in 130s. Hypotensive postintubation, stat 2 L fluid boluses given. Also started on Levophed to keep map above 65. Patient had been placed on Rocephin and will discontinue this and start renally dosed cefepime, add azithromycin for atypical coverage. ID consulted for questionable scabies and sepsis with shock 06/02: Remains critically ill but stabilizing more. ABG shows correction of severe hypercapnia. FiO2 remains at 50%. Urine output adequate BUN remains elevated creatinine slightly improved. Received treatment with permethrin 06/02: Currently afebrile. Bradycardic on the ventilator. Will adjust sedation to midazolam and fentanyl drips. Tolerating tube feeds at 30 cc an hour. XRT of the right foot ordered. 06/03 No events overnight. Sedated with Versed and Fentanyl drips. Afebrile. 06/04: Remains on midazolam drip at 4 mg an hour and fentanyl drip at 100 mcg an hour. Tolerating tube feeds. Currently afebrile. Failed spontaneous breathing trials today. 06/05: Ventilator settings unchanged. Remains on midazolam drip at 5 mg an hour and fentanyl drip at 100 mcg an hour. Tolerating tube feeds. We will reattempt spontaneous breathing trials today. 06/06 Patient is sedated with Fentanyl and versed drips and intubated. Afebrile. 06/07: Afebrile. Remains on midazolam drip at 5 mg an hour and fentanyl drip at 100 mcg an hour. MRI brain revealed no acute intracranial findings. Opens eyes. Not following commands currently. 06/08: Afebrile. Remains on midazolam drip. Opens eyes but not following commands currently. Tolerating tube feeds at goal. Positive BM. 06/09: Tolerated CPAP trials 8 hours yesterday. Not tolerating today. Opens eyes but not follows commands. Tube feeds at goal. Positive BM. Remains on midazolam and fentanyl drips. 06/10: Afebrile. Currently on CPAP trial. 16/ at 45%. Eyes are open. Currently in A. fib rate controlled. Will start on heparin drip. Subjective 06/11: Patient became tachycardic with A. fib with RVR and CPAP trial. Attempted 06/05 at 45%. Eyes are open. Follows commands. Objective Vital Signs / I&O: Vital Signs 06/10/18 16:00 06/10/18 16:55 06/10/18 16:58 Temperature 98.7 F Pulse Rate 115 H 112 H Respiratory Rate 29 H 20 20 Blood Pressure 115/82 Pulse Oximetry 94 L 06/10/18 18:00 06/10/18 18:30 06/10/18 18:46 Temperature Pulse Rate 112 H 111 H 110 H Respiratory Rate 25 H 24 Blood Pressure 111/59 L 101/50 L Pulse Oximetry 94 L 94 L 06/10/18 19:00 06/10/18 19:15 06/10/18 19:30 Temperature Pulse Rate 114 H 106 H 153 H Respiratory Rate 25 H 25 H 32 H Blood Pressure 111/67 109/73 120/78 Pulse Oximetry 94 L 94 L 93 L 06/10/18 19:45 06/10/18 19:46 06/10/18 20:00 Temperature 98.5 F Pulse Rate 132 H 107 H Respiratory Rate 18 18 19 Blood Pressure 100/74 Pulse Oximetry 96 96 93 L 06/10/18 20:01 06/10/18 20:16 06/10/18 20:44 Temperature Pulse Rate 106 H 103 H 98 H Respiratory Rate 18 18 18 Blood Pressure 128/78 118/75 131/59 L Pulse Oximetry 94 L 96 94 L 06/10/18 20:46 06/10/18 21:00 06/10/18 21:16 Temperature Pulse Rate 95 H 95 H 101 H Respiratory Rate 18 18 18 Blood Pressure 126/64 126/60 137/76 Pulse Oximetry 94 L 95 99 06/10/18 21:31 06/10/18 21:46 06/10/18 22:00 Temperature Pulse Rate 94 H 97 H 92 H Respiratory Rate 18 18 21 Blood Pressure 125/58 L 130/53 L Pulse Oximetry 95 96 96 06/10/18 22:01 06/10/18 22:16 06/10/18 22:31 Temperature Pulse Rate 129 H 94 H 89 Respiratory Rate 21 18 18 Blood Pressure 113/78 108/78 119/55 L Pulse Oximetry 91 L 96 96 06/10/18 22:46 06/10/18 23:00 06/10/18 23:01 Temperature Pulse Rate 92 H 89 88 Respiratory Rate 18 18 18 Blood Pressure 130/63 115/83 Pulse Oximetry 97 97 95 06/10/18 23:16 06/10/18 23:31 06/10/18 23:46 Temperature Pulse Rate 87 86 92 H Respiratory Rate 18 18 18 Blood Pressure 114/65 135/83 167/70 H Pulse Oximetry 96 96 97 06/11/18 00:00 06/11/18 00:01 06/11/18 00:04 Temperature Pulse Rate 91 H 91 H 86 Respiratory Rate 18 18 18 Blood Pressure 113/59 L Pulse Oximetry 97 97 06/11/18 00:16 06/11/18 00:30 06/11/18 00:45 Temperature Pulse Rate 91 H 93 H 114 H Respiratory Rate 18 18 24 Blood Pressure 124/56 L 119/60 139/73 Pulse Oximetry 97 97 97 06/11/18 01:00 06/11/18 01:15 06/11/18 01:31 Temperature Pulse Rate 110 H 113 H 106 H Respiratory Rate 18 18 18 Blood Pressure 114/65 118/70 120/59 L Pulse Oximetry 96 97 95 06/11/18 01:46 06/11/18 02:00 06/11/18 02:01 Temperature Pulse Rate 95 H 99 H 104 H Respiratory Rate 18 18 18 Blood Pressure 126/55 L 143/58 H Pulse Oximetry 97 95 95 06/11/18 02:16 06/11/18 02:31 06/11/18 02:46 Temperature Pulse Rate 105 H 98 H 104 H Respiratory Rate 18 18 18 Blood Pressure 122/56 L 123/53 L 128/57 L Pulse Oximetry 94 L 95 95 06/11/18 03:00 06/11/18 03:01 06/11/18 03:16 Temperature Pulse Rate 102 H 111 H 107 H Respiratory Rate 18 18 19 Blood Pressure 89/53 L 96/74 L Pulse Oximetry 94 L 94 L 95 06/11/18 03:30 06/11/18 03:45 06/11/18 03:53 Temperature Pulse Rate 113 H 104 H 100 H Respiratory Rate 24 18 19 Blood Pressure 96/73 L 102/68 Pulse Oximetry 94 L 96 99 06/11/18 04:00 06/11/18 06:00 06/11/18 07:45 Temperature 98.7 F Pulse Rate 98 H 105 H 96 H Respiratory Rate 18 Blood Pressure Pulse Oximetry 06/11/18 08:00 06/11/18 08:38 06/11/18 10:00 Temperature 99.0 F Pulse Rate 94 H 120 H Respiratory Rate 25 H 20 Blood Pressure 111/70 Pulse Oximetry 94 L 96 06/11/18 11:25 06/11/18 11:26 06/11/18 12:00 Temperature 98.8 F Pulse Rate 106 H 91 H Respiratory Rate 18 18 18 Blood Pressure 108/56 L Pulse Oximetry 93 L 95 06/11/18 14:00 Temperature Pulse Rate 91 H Respiratory Rate Blood Pressure Pulse Oximetry Intake & Output 06/10/18 06/11/18 06/11/18 18:59 06:59 18:59 Intake Total 2996 / 2996 2890 / 2890 Output Total 5900 / 5900 2560 / 2560 Balance -2904 / -2904 330 / 330 Weight 150.9 kg Intake: IV 765 / 765 1665 / 1665 Precedex Inj 1,000 MCG In NS 50 / 50 Inj 240 ML @ 0.2 MCG/KG/HR 8.01 mls/hr IV.CONT TITRATE PRN Rx# :[id number] Versed Inj 50 mg In 50 ml @ 2 50 / 50 MG/HR 2 mls/hr IV.CONT TITRATE PRN Rx#:[id number] 1/2 Normal Saline Inj 1,000 ML 1000 / 1000 @ 20 mls/hr IV.CONT .Q24H BECKY Rx#:[id number] Maxipime Inj 2,000 MG In NS Inj 100 / 100 100 / 100 100 ML @ 200 mls/hr IV.SIG Q12H BECKY Rx#:[id number] Vancomycin Inj 1,500 MG In NS 515 / 515 515 / 515 Inj 500 ML @ 250 mls/hr IV.SIG Q18H BECKY Rx#:[id number] Oral 0 / 0 0 / 0 Tube Feeding 1371 / 1371 765 / 765 Tube Irrigant 60 / 60 60 / 60 Water Bolus Amount 800 / 800 400 / 400 Output: Urine 0 / 0 Stool 0 / 0 0 / 0 Urine/Stool Mix 50 / 50 10 / 10 Urine Amount (Catheter) 5850 / 5850 2550 / 2550 Indwelling Urethral Catheter 5850 / 5850 2550 / 2550 Other: Date of Last Bowel Movement 06/10/18 06/11/18 06/11/18 # Bowel Movements 0 0 # Incontinent Bowel Movements 0 0 Result Diagrams: 06/11/18 04:42 06/11/18 04:42 Other Results: Microbiology 05/30/18 22:21 Blood - Peripheral Aerobic Blood Culture - Final No growth in 5 days 05/30/18 22:21 Blood - Peripheral Anaerobic Blood Culture - Final No growth in 5 days 05/30/18 22:21 Blood - Peripheral Aerobic Blood Culture - Final No growth in 5 days 05/30/18 22:21 Blood - Peripheral Anaerobic Blood Culture - Final No growth in 5 days 05/31/18 14:50 Wound - Abdominal Gram Stain - Final 05/31/18 14:50 Wound - Abdominal Wound Culture - Final S. aureus MRSA 05/31/18 13:08 Urine - Catheterized Urine Streptococcus pneumoniae Antigen ( M - Final Presumptive negative for streptococcus pneumoniae antigen, suggesting no current or recent infection. Infection due to Streptococcus pneumoniae cannot be ruled out since the antigen present in the sample may be below the detection limit of the test. 05/31/18 13:08 Urine - Catheterized Urine Legionella Antigen - Final Presumptive negative for Legionella pneumophila serogroup 1 antigen in urine, suggesting no recent or recurrent infection. Infection due to Legionella cannot be ruled out since other serogroups and species may cause disease, antigen may not be present in urine in early infection, and the level of antigen present in the urine may be below the detection limit of the test. 05/30/18 22:56 Clean Catch Urine Urine Culture - Final 50-100,000 cfu/mL mixed leesa (probable contaminants ) Imaging: Chest X-Ray 05/30/18 22:09 CONCLUSION: Cardiomegaly. Diffuse increased interstitial markings likely related to edema. Increased density at the left base with silhouetting of the left hemidiaphragm secondary to left base atelectasis, consolidation and/or effusion. Abdomen/Bladder Ultrasound 05/31/18 00:00 CONCLUSION: 1. No obstructive uropathy or other acute abnormality demonstrated. 2. Benign cyst of the right kidney. Abdomen/Pelvis CT 05/31/18 00:00 CONCLUSION: 1. Cholelithiasis. 2. Colonic diverticulosis without definitive evidence for diverticulitis. 3. Prominent uterus with hypodense 6 cm mass anteriorly likely reflecting a pedunculated fibroid. 4. Appendix is not visualized and potentially obscured by the uterine fibroid. 5. Large fat-containing left-sided anterior abdominal wall hernia. 6. Diffuse soft tissue edema in the inferior abdominal pannus. Head CT 05/31/18 00:00 CONCLUSION: 1. No acute intracranial abnormality. 2. Minimal paranasal sinus mucosal disease. Chest X-Ray 05/31/18 13:55 CONCLUSION: 1. Cardiomegaly with resolving interstitial edema and improving aeration in the left lung base. 2. Endotracheal tube appropriately positioned above the brittnee. Nasogastric tube is curled in the gastric fundus and the left IJ central venous catheter is identified. At the junction of the left and right brachiocephalic vein. Foot X-Ray 06/02/18 00:00 CONCLUSION: There is a destructive change at the distal aspect of the third distal phalanx at the tuft. Osteomyelitis needs be considered. 0.4 cm calcific density seen at the proximal lateral plantar aspect of the third digit. Chest X-Ray 06/02/18 06:00 CONCLUSION: 1. Stable tubes and lines. 2. Cardiomegaly with positive fluid balance. 3. Stable left and worsening right lower lung zone airspace disease. Chest X-Ray 06/03/18 06:00 CONCLUSION: Cardiomegaly with bilateral airspace disease greater in the right lung, unchanged. Chest X-Ray 06/04/18 00:00 CONCLUSION: No significant change Chest X-Ray 06/05/18 06:00 CONCLUSION: No significant change Chest X-Ray 06/06/18 06:00 CONCLUSION: Support apparatus unchanged. Bilateral mostly basilar airspace disease and cardiomegaly with effusions also not significantly changed considering differences in technique. Head MRI 06/07/18 00:00 CONCLUSION: 1. Senescent changes with mild periventricular ischemic white matter demyelination. 2. Otherwise, unremarkable MRI examination of the brain. Specifically, no evidence for acute infarction. 3. Paranasal sinus disease. Chest X-Ray 06/08/18 06:00 CONCLUSION: No significant change in bilateral mostly basilar and dependent airspace disease and possible mild edema. Endotracheal tube and nasogastric tube unchanged. Left central line in left brachiocephalic vein. Chest X-Ray 06/09/18 06:00 CONCLUSION: Stable bilateral airspace disease and pleural effusions. Endotracheal tube and nasogastric tube unchanged. Chest X-Ray 06/09/18 16:16 CONCLUSION: Interval placement of a right jugular central venous catheter which extends into the right atrium. No evidence of pneumothorax. Otherwise no change. Chest X-Ray 06/10/18 06:00 CONCLUSION: Considerable improvement left greater than right basilar consolidation and small effusions. Objective Remarks: GENERAL: 67-year-old female currently resting in bed currently orotracheally intubated SKIN: Cool and dry. Tinea cruris, axillary region and under the breasts. Excoriated pannus in back. Purple rash and excoriation bilateral lower extremity HEAD: Atraumatic. Normocephalic. No temporal wasting, or tenderness. EYES: Pupils equal, round and reactive to light. Extraocular movements are present EARS, NOSE AND THROAT: Edentulous. Mucous membranes dry. Orotracheally intubated NECK: Short and obese neck, supple, right IJ is clean dry and intact. CARDIOVASCULAR: Diminished heart sounds. IRR. No murmurs, rubs or gallops heard RESPIRATORY: Diminished breath sounds throughout due to body habitus. No wheezing ABDOMEN: Obese abdomen, soft, with multiple striae and excoriations. Hypoactive bowel sounds EXTREMITIES: Positive pedal edema. Has mild mottling both feet. Purple rash and excoriation bilateral lower extremity. Necrotic appearing right third toe. NEUROLOGICAL: Cranial nerves appear to be grossly intact. Positive gag and cough. Spontaneously moves extremities to stimulation. Currently spontaneously opens eyes. She is following commands at the present time. Assessment and Plan - Assessment and Plan Plan: NEURO/Psych: Acute severe encephalopathy secondary to severe sepsis/hypercarbia Depression disorder NOS Chronic benzodiazepine use On midazolam drip at 2 mg an hour and fentanyl drip at 50 mcg an hour for sedation. Daily sedation vacation. Goal of RASS -2 CT brain on admission revealed no acute intracranial findings 06/06 EEG, severe encephalopathyepileptiform activity Acetaminophen 650 every 6 hours as needed fever Holding citalopram 20 mg daily/home medication for depression. Resume clinically indicated On lorazepam 0.5 mg at night as needed. Currently on 1 mg every 15 minutes for possible seizure activity? MRI brain revealed no acute intracranial abnormalities RESP: Acute respiratory failure/hypercarbic and hypoxemic Acute COPD exacerbation Probable community-acquired pneumonia On PC/AC RR 18, IP: 23, IT:1.0, PEEP:8, FIO2 45 CPAP 15/6 and 40% as tolerated Ventilator bundle -Albuterol/ipratropium aerosols every 4 hours scheduled and albuterol aerosols every 2 hours as needed Continue IV methylprednisolone succinate 40 mg every 12 Spontaneous breathing trials as clinically indicated CV: Atrial flutter with rapid ventricular response Sinus bradycardia currently sinus tachycardia History of essential hypertension History of dyslipidemia Off all vasopressors -Echo showed EF 50-55% -Monitor HR and BP keep MAP>65mmHg Currently on pravastatin 80 mg daily, hospital substitution for simvastatin 40 mg daily which is her home medication On digoxin daily. Check level in a.m. 06/11 GI: Hypoalbuminemia Cholelithiasis Sigmoid diverticulosis Abdominal wall hernia/left-sided Hypoalbuminemia -on tube feeds with vital high-protein goal 65 cc an hour. Lansoprazole for GI prophylaxis Docusate sodium/senna 1 tablet twice daily for bowel regimen CT abdomen/pelvis revealed cholelithiasis, sigmoid colonic diverticulosis, and abdominal wall hernia Renal/[employer]/: Acute kidney injury resolving 6 cm uterine fibroid Right renal cyst -Monitor renal function, I/O's. avoid nephrotoxins -Renal ultrasound -right renal cyst otherwise no signs of obstruction. -Nephrology is following, Dr. Narvaez On 1/2NS@20ml/hr, free water 200ml Q6 ID: UTI Wound cultures positive for MRSA -ID following, continue cefepime and vancomycin per IDs recommendation. Azithromycin discontinued 06/03 ceftaroline discontinued 06/06 Monitor or signs of infections (Fever, WBC) Right 3rd toe and other skin lesions/cellulitis on LLE likely sources of infection Xray foot: There is a destructive change at the distal aspect of the third distal phalanx at the tuft. 0.4 cm calcific density seen at the proximal lateral plantar aspect of the third digit. Podiatry is following, might need right third digit amputation per Podiatry Mupirocin to nares twice daily Pertinent cultures 05/31 -wound culture -MRSA 05/30 -blood cultures 2 -no growth 05/30 -UA -50- 100,000 -s/p Permethrin cream 5% for possible scabies HEME: Thrombocytopenia No indication for transfusion of blood products at this time -Monitor CBC, CMP, coags FEN/ENDO: Diabetes mellitus Hypophosphatemia Holding home medications Metformin 1000 mg twice daily and glipizide at 5 mg twice daily. TSH 0.97 Insulin detemir 32 units BID and SSI with Novolin R q. 6 hour Accu-Cheks MSK: Elevated BMI Necrotic right third toe. Xray foot: There is a destructive change at the distal aspect of the third distal phalanx at the tuft. Podiatry is following, recommend amputation when clinically stable Wt loss encouraged PT evaluate and treat PROPH: -Bilateral lower extremity SCDs. Heparin drip provides DVT prophylaxis. Lansoprazole 30 mg daily LINES: -Left IJ central line placed 05/31/18 discontinued 06/09. Right IJ CVL placed Palliative care is following Level 3 follow-up
[2018-06-11] MEDS: Mag Sulf 1 gm/100 ml Premix 100 ML IV.SIG SCH ×2 (15:46→17:04)
[2018-06-11] MEDS: Vancomycin Inj 1,500 MG in Sodium Chlor 0.9% Inj 500 ML IV.SIG SCH (16:00)
--- NOTE | 2018-06-11 16:19 | ECG ---
Date Performed: 06/10/2018 Time Performed: 15:16:04 PTAGE: 67 years EKG: Atrial fibrillation with rapid ventricular response with PVC(s). Rightward axis Extensive T wave changes are nonspecific Generalized low QRS voltages Abnormal ECG Since PREVIOUS TRACING , no significant change noted PREVIOUS TRACIN06/09/2018 19.55 DOCTOR: Mendoza Redd Interpretating Date/Time 06/11/2018 16:17:59
[2018-06-11] MEDS: Sodium Chloride 0.45 % Inj 1,000 ML IV.CONT SCH (19:29)
[2018-06-11] MEDS: Hypromellose 0.3% Opth Gel 10 GM Bottle EACH EYE SCH (20:26)
[2018-06-12 01:48] LABS: Baso % (Auto) 0.3 % (0.0-2.0); Eos # (Auto) 0.1 th/mm3 (0.0-0.4); Eos % (Auto) 1.2 % (0.0-4.0); Hematocrit 43.6 % (35.0-46.0); Hemoglobin 13.5 gm/dL (11.6-15.3); Lymph # (Auto) 0.6 th/mm3 (1.0-4.8); Lymph % (Auto) 7.9 % (9.0-44.0); Mean Platelet Volume 8.5 fL (7.0-11.0); Mono # (Auto) 0.4 th/mm3 (0.0-0.9); Mono % (Auto) 5.8 % (0.0-8.0); Neut # (Auto) 6.6 th/mm3 (1.8-7.7); Neut % (Auto) 84.8 % (16.0-70.0); Platelet Count 139 th/mm3 (150-450); Red Blood Count 5.01 mil/mm3 (4.00-5.30); Red Cell Distribution Width 17.4 % (11.6-17.2); White Blood Count 7.7 th/mm3 (4.0-11.0)
[2018-06-12 02:21] LABS: Calcium 8.4 mg/dL (8.5-10.1); Carbon Dioxide 30.4 meq/L (21.0-32.0); Magnesium 1.9 mg/dL (1.5-2.5); Potassium 4.1 meq/L (3.5-5.1)
[2018-06-12 02:35] LABS: Digoxin 0.7 ng/mL (0.8-2.0)
[2018-06-12] MEDS: Oral Hygiene Kit OROPHARYNG SCH ×3 (06:50→16:53)
[2018-06-12] MEDS: Insulin NovoLIN Regular Correctional Sugar Inj SQ SCH ×3 (06:50→17:27)
[2018-06-12] MEDS: Dexmedetomidine Inj 1,000 MCG in Sodium Chlor 0.9% Inj 240 ML IV.CONT PRN (08:54)
[2018-06-12] MEDS: Insulin Detemir Inj 1,000 UNIT/10 ML Vial SQ SCH ×2 (08:55→20:37)
[2018-06-12] MEDS: Digoxin Inj 500 MCG/2 ML Ampul IV.PUSH SCH (08:55)
[2018-06-12] MEDS: Mupirocin 2% Nasal Oint Topical Syringe EACH NARE SCH ×2 (08:56→20:37)
[2018-06-12] MEDS: MethylPREDNISolone Sod Succinate Inj 40 MG/ML Vial IV.PUSH SCH (08:56)
[2018-06-12] MEDS: Chlorhexidine 0.12% Oral Kit 15 ML UDC OROPHARYNG SCH ×2 (08:56→20:37)
[2018-06-12] MEDS: Senna/Docusate Sodium 8.6/50 MG Tablet PO SCH ×2 (08:56→20:38)
[2018-06-12] MEDS: Collagenase Oint 30 GM Tube TOPICAL SCH (08:57)
[2018-06-12] MEDS: Vancomycin Inj 1,500 MG in Sodium Chlor 0.9% Inj 500 ML IV.SIG SCH (12:00)
[2018-06-12] MEDS ORDERED: Potassium Chloride 25 MEQ Effervescent Tablet PO ONE (13:04)
[2018-06-12] MEDS ORDERED: Chlorothiazide Inj 500 MG Vial IV.PUSH ONE (13:04)
--- NOTE | 2018-06-12 13:22 | P.PNCC ---
Subjective Subjective Remarks/Hospital Course: Mrs. Scott is a 67-year-old female with past medical history significant for morbid obesity, type 2 diabetes, hypertension, probable COPD who was brought in by the family yesterday night because of increasing weakness and lethargic, this was ongoing for last 2 weeks got worse over the last 2 days. Unable to get detailed history from patient due to lethargy. ER workup showed patient had a urinary tract infection and sepsis, also chest x-ray showed bilateral interstitial infiltrates, and LLL consolidation. There is also evidence of acute kidney injury with creatinine up to 2.59, BUN 89. Intermittently having tachyarrhythmia/atrial flutter with rate in in 130s. Patient was admitted to the hospital service. At the time of hospitalist (Dr. Mckeon) evaluation patient was very lethargic and ABG showed a pH of 7.08 and a PCO2 of 91, PO2 was 70 on 5 L nasal cannula. Patient was immediately placed on BiPAP. Approximately after 45 minutes ABG was repeat showed only marginal improvement pH of 7.12 and PCO2 of 84. Patient was emergently transferred to the ICU and critical care was consulted I evaluated the patient in the ICU. She is currently on BiPAP 15/. Patient is lethargic, even though arousable she falls right back to sleep. Airway protection was questionable. With severe hypercarbic respiratory failure complicated with sepsis, metabolic encephalopathy and acute kidney failure, decision was made to intubate the patient. I endotracheally intubate the patient in placed on the mechanical ventilation. Prior to and post intubation patient heart rate remained in 130s. Hypotensive postintubation, stat 2 L fluid boluses given. Also started on Levophed to keep map above 65. Patient had been placed on Rocephin and will discontinue this and start renally dosed cefepime, add azithromycin for atypical coverage. ID consulted for questionable scabies and sepsis with shock 06/02: Remains critically ill but stabilizing more. ABG shows correction of severe hypercapnia. FiO2 remains at 50%. Urine output adequate BUN remains elevated creatinine slightly improved. Received treatment with permethrin 06/02: Currently afebrile. Bradycardic on the ventilator. Will adjust sedation to midazolam and fentanyl drips. Tolerating tube feeds at 30 cc an hour. XRT of the right foot ordered. 06/03 No events overnight. Sedated with Versed and Fentanyl drips. Afebrile. 06/04: Remains on midazolam drip at 4 mg an hour and fentanyl drip at 100 mcg an hour. Tolerating tube feeds. Currently afebrile. Failed spontaneous breathing trials today. 06/05: Ventilator settings unchanged. Remains on midazolam drip at 5 mg an hour and fentanyl drip at 100 mcg an hour. Tolerating tube feeds. We will reattempt spontaneous breathing trials today. 06/06 Patient is sedated with Fentanyl and versed drips and intubated. Afebrile. 06/07: Afebrile. Remains on midazolam drip at 5 mg an hour and fentanyl drip at 100 mcg an hour. MRI brain revealed no acute intracranial findings. Opens eyes. Not following commands currently. 06/08: Afebrile. Remains on midazolam drip. Opens eyes but not following commands currently. Tolerating tube feeds at goal. Positive BM. 06/09: Tolerated CPAP trials 8 hours yesterday. Not tolerating today. Opens eyes but not follows commands. Tube feeds at goal. Positive BM. Remains on midazolam and fentanyl drips. 06/10: Afebrile. Currently on CPAP trial. 16/8 at 45%. Eyes are open. Currently in A. fib rate controlled. Will start on heparin drip. 06/11: Patient became tachycardic with A. fib with RVR and CPAP trial. Attempted 15/6 at 45%. Eyes are open. Follows commands. Subjective 06/12: We will place on dexmedetomidine and attempt CPAP today. Watch for bradycardia.. Tolerating tube feeding. Tracheostomy with palliative care discussion planned for tomorrow Wednesday 06/13. Objective Vital Signs / I&O: Vital Signs 06/11/18 14:00 06/11/18 14:20 06/11/18 14:40 Temperature Pulse Rate 91 H 90 92 H Respiratory Rate 18 18 Blood Pressure 105/73 Pulse Oximetry 95 94 L 06/11/18 15:00 06/11/18 15:21 06/11/18 15:33 Temperature Pulse Rate 90 90 86 Respiratory Rate 18 18 18 Blood Pressure 106/66 108/59 L Pulse Oximetry 94 L 94 L 06/11/18 15:41 06/11/18 16:00 06/11/18 16:20 Temperature 98.8 F Pulse Rate 83 88 89 Respiratory Rate 18 18 18 Blood Pressure 95/56 L 102/62 104/65 Pulse Oximetry 94 L 94 L 95 06/11/18 16:40 06/11/18 16:54 06/11/18 17:00 Temperature Pulse Rate 84 83 Respiratory Rate 18 18 18 Blood Pressure 100/61 102/58 L Pulse Oximetry 94 L 94 L 94 L 06/11/18 17:20 06/11/18 17:41 06/11/18 18:00 Temperature Pulse Rate 84 86 81 Respiratory Rate 18 18 18 Blood Pressure 106/80 110/58 L 108/61 Pulse Oximetry 94 L 95 94 L 06/11/18 18:20 06/11/18 18:41 06/11/18 19:00 Temperature Pulse Rate 87 89 90 Respiratory Rate 18 18 18 Blood Pressure 114/62 113/57 L Pulse Oximetry 93 L 90 L 95 06/11/18 19:01 06/11/18 19:21 06/11/18 19:40 Temperature Pulse Rate 91 H 88 89 Respiratory Rate 18 18 18 Blood Pressure 107/53 L 113/57 L 98/58 L Pulse Oximetry 95 93 L 94 L 06/11/18 20:00 06/11/18 20:01 06/11/18 20:21 Temperature 99.3 F Pulse Rate 85 84 95 H Respiratory Rate 18 18 22 Blood Pressure 93/55 L 93/59 L Pulse Oximetry 93 L 93 L 94 L 06/11/18 20:40 06/11/18 20:52 06/11/18 20:55 Temperature Pulse Rate 101 H 93 H Respiratory Rate 18 18 23 Blood Pressure 108/67 Pulse Oximetry 94 L 100 06/11/18 21:00 06/11/18 21:20 06/11/18 21:40 Temperature Pulse Rate 95 H 106 H 97 H Respiratory Rate 18 18 18 Blood Pressure 111/78 112/59 L 117/66 Pulse Oximetry 100 94 L 94 L 06/11/18 22:00 06/11/18 22:01 06/12/18 00:00 Temperature 99 F Pulse Rate 95 H 95 H 96 H Respiratory Rate 18 18 18 Blood Pressure 106/60 Pulse Oximetry 94 L 94 L 95 06/12/18 00:01 06/12/18 00:21 06/12/18 00:25 Temperature Pulse Rate 93 H 91 H Respiratory Rate 18 18 21 Blood Pressure 112/56 L 110/61 Pulse Oximetry 94 L 94 L 92 L 06/12/18 00:40 06/12/18 01:00 06/12/18 01:01 Temperature Pulse Rate 93 H 134 H 151 H Respiratory Rate 18 24 18 Blood Pressure 108/79 107/75 Pulse Oximetry 94 L 79 L 92 L 06/12/18 01:20 06/12/18 01:40 06/12/18 02:00 Temperature Pulse Rate 110 H 92 H 96 H Respiratory Rate 18 18 18 Blood Pressure 123/58 L 117/65 Pulse Oximetry 96 95 94 L 06/12/18 02:01 06/12/18 02:20 06/12/18 02:41 Temperature Pulse Rate 100 H 112 H 95 H Respiratory Rate 18 20 18 Blood Pressure 108/59 L 113/63 108/67 Pulse Oximetry 94 L 98 94 L 06/12/18 03:00 06/12/18 03:20 06/12/18 03:40 Temperature Pulse Rate 115 H 94 H 96 H Respiratory Rate 17 18 18 Blood Pressure 109/75 123/60 105/63 Pulse Oximetry 92 L 95 95 06/12/18 04:00 06/12/18 04:01 06/12/18 04:11 Temperature Pulse Rate 93 H 95 H Respiratory Rate 18 18 19 Blood Pressure 143/86 H Pulse Oximetry 97 96 96 06/12/18 04:21 06/12/18 04:40 06/12/18 05:00 Temperature Pulse Rate 94 H 95 H 103 H Respiratory Rate 18 18 18 Blood Pressure 112/55 L 111/64 Pulse Oximetry 96 97 96 06/12/18 05:01 06/12/18 05:21 06/12/18 05:40 Temperature Pulse Rate 94 H 90 96 H Respiratory Rate 18 18 18 Blood Pressure 119/81 105/61 121/60 Pulse Oximetry 96 95 99 06/12/18 06:00 06/12/18 06:01 06/12/18 06:21 Temperature Pulse Rate 86 116 H 108 H Respiratory Rate 19 22 18 Blood Pressure 131/61 113/57 L Pulse Oximetry 76 L 93 L 94 L 06/12/18 06:41 06/12/18 07:00 06/12/18 08:00 Temperature 98.7 F Pulse Rate 97 H 93 H 95 H Respiratory Rate 18 18 18 Blood Pressure 106/51 L 110/83 121/72 Pulse Oximetry 93 L 93 L 95 06/12/18 08:37 06/12/18 10:00 06/12/18 11:35 Temperature Pulse Rate 66 Respiratory Rate 18 18 Blood Pressure Pulse Oximetry 98 94 L 06/12/18 12:00 Temperature 98.5 F Pulse Rate 83 Respiratory Rate 18 Blood Pressure 135/74 Pulse Oximetry 92 L Intake & Output 06/11/18 06/12/18 06/12/18 18:59 06:59 18:59 Intake Total 1440 / 1440 1655 / 1655 100 / 100 Output Total 1450 / 1450 1800 / 1800 Balance -10 / -10 -145 / -145 100 / 100 Weight 149.2 kg Intake: IV 815 / 815 480 / 480 100 / 100 1/2 Normal Saline Inj 1,000 ML 480 / 480 @ 20 mls/hr IV.CONT .Q24H [facility] Rx#:[id number] Maxipime Inj 2,000 MG In NS Inj 100 / 100 100 / 100 100 ML @ 200 mls/hr IV.SIG Q12H [facility]KY Rx#:[id number] Magnesium Sulfate 1 gm/D5W 100 200 / 200 ml Premix 100 ML @ 100 mls/hr IV.SIG Q1H [facility] Rx#:[id number] Vancomycin Inj 1,500 MG In NS 515 / 515 Inj 500 ML @ 250 mls/hr IV.SIG Q18H BECKY Rx#:[id number] Tube Feeding 225 / 225 655 / 655 Tube Irrigant 400 / 400 Water Bolus Amount 400 / 400 120 / 120 Output: Urine 1450 / 1450 Urine Amount (Catheter) 1800 / 1800 Indwelling Urethral Catheter 1800 / 1800 Other: Date of Last Bowel Movement 06/11/18 06/12/18 06/12/18 # Bowel Movements 1 # Incontinent Bowel Movements 1 Result Diagrams: 06/12/18 01:20 06/12/18 01:20 Other Results: Microbiology 05/30/18 22:21 Blood - Peripheral Aerobic Blood Culture - Final No growth in 5 days 05/30/18 22:21 Blood - Peripheral Anaerobic Blood Culture - Final No growth in 5 days 05/30/18 22:21 Blood - Peripheral Aerobic Blood Culture - Final No growth in 5 days 05/30/18 22:21 Blood - Peripheral Anaerobic Blood Culture - Final No growth in 5 days 05/31/18 14:50 Wound - Abdominal Gram Stain - Final 05/31/18 14:50 Wound - Abdominal Wound Culture - Final S. aureus MRSA 05/31/18 13:08 Urine - Catheterized Urine Streptococcus pneumoniae Antigen ( M - Final Presumptive negative for streptococcus pneumoniae antigen, suggesting no current or recent infection. Infection due to Streptococcus pneumoniae cannot be ruled out since the antigen present in the sample may be below the detection limit of the test. 05/31/18 13:08 Urine - Catheterized Urine Legionella Antigen - Final Presumptive negative for Legionella pneumophila serogroup 1 antigen in urine, suggesting no recent or recurrent infection. Infection due to Legionella cannot be ruled out since other serogroups and species may cause disease, antigen may not be present in urine in early infection, and the level of antigen present in the urine may be below the detection limit of the test. 05/30/18 22:56 Clean Catch Urine Urine Culture - Final 50-100,000 cfu/mL mixed leesa (probable contaminants ) Imaging: Chest X-Ray 05/30/18 22:09 CONCLUSION: Cardiomegaly. Diffuse increased interstitial markings likely related to edema. Increased density at the left base with silhouetting of the left hemidiaphragm secondary to left base atelectasis, consolidation and/or effusion. Abdomen/Bladder Ultrasound 05/31/18 00:00 CONCLUSION: 1. No obstructive uropathy or other acute abnormality demonstrated. 2. Benign cyst of the right kidney. Abdomen/Pelvis CT 05/31/18 00:00 CONCLUSION: 1. Cholelithiasis. 2. Colonic diverticulosis without definitive evidence for diverticulitis. 3. Prominent uterus with hypodense 6 cm mass anteriorly likely reflecting a pedunculated fibroid. 4. Appendix is not visualized and potentially obscured by the uterine fibroid. 5. Large fat-containing left-sided anterior abdominal wall hernia. 6. Diffuse soft tissue edema in the inferior abdominal pannus. Head CT 05/31/18 00:00 CONCLUSION: 1. No acute intracranial abnormality. 2. Minimal paranasal sinus mucosal disease. Chest X-Ray 05/31/18 13:55 CONCLUSION: 1. Cardiomegaly with resolving interstitial edema and improving aeration in the left lung base. 2. Endotracheal tube appropriately positioned above the brittnee. Nasogastric tube is curled in the gastric fundus and the left IJ central venous catheter is identified. At the junction of the left and right brachiocephalic vein. Foot X-Ray 06/02/18 00:00 CONCLUSION: There is a destructive change at the distal aspect of the third distal phalanx at the tuft. Osteomyelitis needs be considered. 0.4 cm calcific density seen at the proximal lateral plantar aspect of the third digit. Chest X-Ray 06/02/18 06:00 CONCLUSION: 1. Stable tubes and lines. 2. Cardiomegaly with positive fluid balance. 3. Stable left and worsening right lower lung zone airspace disease. Chest X-Ray 06/03/18 06:00 CONCLUSION: Cardiomegaly with bilateral airspace disease greater in the right lung, unchanged. Chest X-Ray 06/04/18 00:00 CONCLUSION: No significant change Chest X-Ray 06/05/18 06:00 CONCLUSION: No significant change Chest X-Ray 06/06/18 06:00 CONCLUSION: Support apparatus unchanged. Bilateral mostly basilar airspace disease and cardiomegaly with effusions also not significantly changed considering differences in technique. Head MRI 06/07/18 00:00 CONCLUSION: 1. Senescent changes with mild periventricular ischemic white matter demyelination. 2. Otherwise, unremarkable MRI examination of the brain. Specifically, no evidence for acute infarction. 3. Paranasal sinus disease. Chest X-Ray 06/08/18 06:00 CONCLUSION: No significant change in bilateral mostly basilar and dependent airspace disease and possible mild edema. Endotracheal tube and nasogastric tube unchanged. Left central line in left brachiocephalic vein. Chest X-Ray 06/09/18 06:00 CONCLUSION: Stable bilateral airspace disease and pleural effusions. Endotracheal tube and nasogastric tube unchanged. Chest X-Ray 06/09/18 16:16 CONCLUSION: Interval placement of a right jugular central venous catheter which extends into the right atrium. No evidence of pneumothorax. Otherwise no change. Chest X-Ray 06/10/18 06:00 CONCLUSION: Considerable improvement left greater than right basilar consolidation and small effusions. Objective Remarks: GENERAL: 67-year-old female currently resting in bed currently orotracheally intubated SKIN: Cool and dry. Tinea cruris, axillary region and under the breasts. Excoriated pannus in back. Purple rash and excoriation bilateral lower extremity HEAD: Atraumatic. Normocephalic. No temporal wasting, or tenderness. EYES: Pupils equal, round and reactive to light. Extraocular movements are present EARS, NOSE AND THROAT: Edentulous. Mucous membranes dry. Orotracheally intubated NECK: Short and obese neck, supple, right IJ is clean dry and intact. CARDIOVASCULAR: Diminished heart sounds secondary to body habitus. IRR. No murmurs, rubs or gallops heard RESPIRATORY: Diminished breath sounds throughout due to body habitus. No wheezing ABDOMEN: Obese abdomen, soft, with multiple striae and excoriations. Hypoactive bowel sounds EXTREMITIES: Positive pedal edema. Has mild mottling both feet. Purple rash and excoriation bilateral lower extremity. Necrotic appearing right third toe. NEUROLOGICAL: Cranial nerves appear to be grossly intact. Positive gag and cough. Spontaneously moves extremities to stimulation. Currently spontaneously opens eyes. She is following commands at the present time. Assessment and Plan - Assessment and Plan Plan: NEURO/Psych: Acute severe encephalopathy secondary to severe sepsis/hypercarbia Depression disorder NOS Chronic benzodiazepine use On midazolam drip at 2 mg an hour and fentanyl drip at 50 mcg an hour for sedation. Daily sedation vacation. Goal of RASS -2 CT brain on admission revealed no acute intracranial findings 06/06 EEG, severe encephalopathy/epileptiform activity Acetaminophen 650 every 6 hours as needed fever Holding citalopram 20 mg daily/home medication for depression. Resume clinically indicated On lorazepam 0.5 mg at night as needed. Currently on 1 mg every 15 minutes for possible seizure activity? MRI brain revealed no acute intracranial abnormalities RESP: Acute respiratory failure/hypercarbic and hypoxemic Acute COPD exacerbation Probable community-acquired pneumonia On PC/AC RR 18, IP: 23, IT:1.0, PEEP:8, FIO2 45 CPAP 15/6 and 40% as tolerated Ventilator bundle -Albuterol/ipratropium aerosols every 4 hours scheduled and albuterol aerosols every 2 hours as needed Continue IV methylprednisolone succinate 40 mg daily Spontaneous breathing trials as clinically indicated CV: Atrial flutter with rapid ventricular response Sinus bradycardia currently sinus tachycardia History of essential hypertension History of dyslipidemia Off all vasopressors -Echo showed EF 50-55% -Monitor HR and BP keep MAP>65mmHg Currently on pravastatin 80 mg daily, hospital substitution for simvastatin 40 mg daily which is her home medication On digoxin daily. Check level in a.m. 06/11 GI: Hypoalbuminemia Cholelithiasis Sigmoid diverticulosis Abdominal wall hernia/left-sided Hypoalbuminemia -on tube feeds with vital high-protein goal 65 cc an hour. Lansoprazole for GI prophylaxis Docusate sodium/senna 1 tablet twice daily for bowel regimen CT abdomen/pelvis revealed cholelithiasis, sigmoid colonic diverticulosis, and abdominal wall hernia Renal/CONTOUR GRINDER/: Acute kidney injury resolving 6 cm uterine fibroid Right renal cyst -Monitor renal function, I/O's. avoid nephrotoxins -Renal ultrasound -right renal cyst otherwise no signs of obstruction. -Nephrology is following, Dr. Narvaez On 12NS@20ml/hr, free water 200ml Q6 ID: UTI Wound cultures positive for MRSA -ID following, continue cefepime and vancomycin per IDs recommendation. Azithromycin discontinued 06/03 ceftaroline discontinued 06/06 Monitor or signs of infections (Fever, WBC) Right 3rd toe and other skin lesions/cellulitis on LLE likely sources of infection Xray foot: There is a destructive change at the distal aspect of the third distal phalanx at the tuft. 0.4 cm calcific density seen at the proximal lateral plantar aspect of the third digit. Podiatry is following, might need right third digit amputation per Podiatry Mupirocin to nares twice daily Pertinent cultures 05/31 -wound culture -MRSA 05/30 -blood cultures 2 -no growth 05/30 -UA -50- 100,000 -s/p Permethrin cream 5% for possible scabies HEME: Thrombocytopenia No indication for transfusion of blood products at this time -Monitor CBC, CMP, coags FEN/ENDO: Diabetes mellitus Hypophosphatemia Holding home medications Metformin 1000 mg twice daily and glipizide at 5 mg twice daily. TSH 0.97 Insulin detemir 32 units BID and SSI with Novolin R q. 6 hour Accu-Cheks MSK: Elevated BMI Necrotic right third toe. Xray foot: There is a destructive change at the distal aspect of the third distal phalanx at the tuft. Podiatry is following, recommend amputation when clinically stable Wt loss encouraged PT evaluate and treat PROPH: -Bilateral lower extremity SCDs. Heparin drip provides DVT prophylaxis. Lansoprazole 30 mg daily LINES: -Left IJ central line placed 05/31/18 discontinued 06/09. Right IJ CVL placed Palliative care is following Level 3 follow-up
[2018-06-12] MEDS: Heparin Drip 25,000 UNIT/250 ML BAG IV.CONT PRN (13:38)
[2018-06-12] MEDS: Mag Sulf 1 gm/100 ml Premix 100 ML IV.SIG SCH ×2 (13:49→15:50)
[2018-06-12] MEDS: Sodium Chloride 0.45 % Inj 1,000 ML IV.CONT SCH (20:36)
[2018-06-12] MEDS: Hypromellose 0.3% Opth Gel 10 GM Bottle EACH EYE SCH (20:38)
[2018-06-13] MEDS: Oral Hygiene Kit OROPHARYNG SCH ×5 (00:25→23:19)
[2018-06-13] MEDS: Insulin NovoLIN Regular Correctional Sugar Inj SQ SCH ×5 (00:25→23:18)
[2018-06-13 07:08] LABS: Baso % (Auto) 0.5 % (0.0-2.0); Eos % (Auto) 0.5 % (0.0-4.0); Hematocrit 41.4 % (35.0-46.0); Lymph # (Auto) 0.5 th/mm3 (1.0-4.8); Lymph % (Auto) 7.2 % (9.0-44.0); Mean Corpuscular HGB Conc 31.5 % (32.0-36.0); Mean Corpuscular Volume 85.9 fL (80.0-100.0); Mean Platelet Volume 8.9 fL (7.0-11.0); Mono # (Auto) 0.3 th/mm3 (0.0-0.9); Mono % (Auto) 4.7 % (0.0-8.0); Neut # (Auto) 6.1 th/mm3 (1.8-7.7); Neut % (Auto) 87.1 % (16.0-70.0); Platelet Count 157 th/mm3 (150-450); Red Blood Count 4.82 mil/mm3 (4.00-5.30); Red Cell Distribution Width 17.1 % (11.6-17.2)
[2018-06-13 07:34] LABS: Calcium 9.1 mg/dL (8.5-10.1); Carbon Dioxide 29.4 meq/L (21.0-32.0); Magnesium 2.1 mg/dL (1.5-2.5); Phosphorus 3.1 mg/dL (2.5-4.9); Potassium 4.2 meq/L (3.5-5.1)
[2018-06-13] MEDS: Digoxin Inj 500 MCG/2 ML Ampul IV.PUSH SCH (08:23)
[2018-06-13] MEDS: Mupirocin 2% Nasal Oint Topical Syringe EACH NARE SCH ×2 (08:23→20:34)
[2018-06-13] MEDS: MethylPREDNISolone Sod Succinate Inj 40 MG/ML Vial IV.PUSH SCH (08:24)
[2018-06-13] MEDS: Insulin Detemir Inj 1,000 UNIT/10 ML Vial SQ SCH ×2 (08:24→20:34)
[2018-06-13] MEDS: Collagenase Oint 30 GM Tube TOPICAL SCH (08:25)
[2018-06-13] MEDS: Chlorhexidine 0.12% Oral Kit 15 ML UDC OROPHARYNG SCH ×2 (08:25→20:34)
[2018-06-13] MEDS: Senna/Docusate Sodium 8.6/50 MG Tablet PO SCH ×2 (08:25→20:34)
[2018-06-13] MEDS: Heparin Drip 25,000 UNIT/250 ML BAG IV.CONT PRN (08:26)
[2018-06-13] MEDS: fentaNYL 10 mcg/mL Premix Drip 2,500 MCG/250 ML BAG IV.SIG PRN (08:26)
--- NOTE | 2018-06-13 09:33 | P.PNID ---
Subjective Remarks: Patient is a 67-year-old female, lives at home with her son, brought into the hospital for evaluation of 2-3 week history of generalized weakness. According to the notes normally she can ambulate in her home using a walker. She was still able to do some ambulation, however for the past 2 days, patient apparently has not been able to get up. It was also noted that she was having some swelling in her abdomen and there was some mention of possible redness. There was no mention of any fever or chills. She has not been congested or coughing. She has not been complaining of any chest pain or any shortness of breath. There is been no nausea or vomiting, or complaints of any diarrhea or urinary complaints. She has known hypertension and diabetes, and there was mention that she has not been able to take her medications since she did not have any money to get her refills. She was initially admitted to the regular floor, and but she developed progressive lethargy, and she was transferred to the ICU. She has not been febrile. Her mental status continued to deteriorate, and she ended up getting intubated. Her chest x-ray showing opacity on the left base. She also has evidence of elevated creatinine, as well as hyperkalemia. Her urinalysis did show significant pyuria. She is getting fluid resuscitation. Currently her blood pressure is holding. Infectious disease consultation has been requested to evaluate the patient with severe sepsis, UTI, and possible scabies. Notes reviewed Afebrile BP ok Doing CPAP trials as tolerated Plans for trach noted Antibiotics: Cefepime Vancomycin Lines: [facility] - 06/09 Past Medical History: Depression Diabetes Hypertension Hypertriglyceridemia Allergies/Adverse Reactions: Allergies No Known Allergies Allergy (Verified 05/30/18 22:08) Objective Vital Signs 06/12/18 09:41 06/12/18 10:00 06/12/18 10:01 Temperature Pulse Rate 69 66 66 Respiratory Rate 18 18 18 Blood Pressure 91/52 L 92/52 L Pulse Oximetry 93 L 92 L 93 L 06/12/18 10:20 06/12/18 10:40 06/12/18 11:00 Temperature Pulse Rate 65 62 59 L Respiratory Rate 18 18 18 Blood Pressure 101/57 L 117/58 L 128/60 Pulse Oximetry 92 L 93 L 92 L 06/12/18 11:33 06/12/18 11:35 06/12/18 12:00 Temperature 98.5 F Pulse Rate 66 82 Respiratory Rate 18 18 20 Blood Pressure 142/67 H 135/74 Pulse Oximetry 94 L 94 L 94 L 06/12/18 12:01 06/12/18 13:00 06/12/18 13:01 Temperature Pulse Rate 89 69 71 Respiratory Rate 34 H 27 H 26 H Blood Pressure 135/74 113/62 Pulse Oximetry 94 L 91 L 91 L 06/12/18 14:00 06/12/18 14:01 06/12/18 15:00 Temperature Pulse Rate 62 62 89 Respiratory Rate 26 H 25 H 38 H Blood Pressure 116/70 Pulse Oximetry 90 L 90 L 91 L 06/12/18 15:02 06/12/18 15:12 06/12/18 16:00 Temperature 98.8 F Pulse Rate 89 76 47 L Respiratory Rate 24 18 18 Blood Pressure 145/110 H 140/88 115/57 L Pulse Oximetry 91 L 93 L 89 L 06/12/18 16:01 06/12/18 17:00 06/12/18 17:37 Temperature Pulse Rate 49 L 74 78 Respiratory Rate 18 19 Blood Pressure 115/57 L 118/72 Pulse Oximetry 89 L 92 L 06/12/18 18:00 06/12/18 18:01 06/12/18 19:00 Temperature Pulse Rate 79 76 78 Respiratory Rate 19 22 22 Blood Pressure 157/81 H Pulse Oximetry 94 L 92 L 94 L 06/12/18 19:01 06/12/18 20:00 06/12/18 20:03 Temperature 97.6 F Pulse Rate 73 83 80 Respiratory Rate 18 40 H 22 Blood Pressure 150/72 H 131/72 Pulse Oximetry 95 94 L 94 L 06/12/18 20:07 06/12/18 22:00 06/13/18 00:00 Temperature 98.0 F Pulse Rate 76 53 L Respiratory Rate 23 16 Blood Pressure 119/72 Pulse Oximetry 95 93 L 06/13/18 00:50 06/13/18 02:00 06/13/18 04:00 Temperature 97.7 F Pulse Rate 70 83 Respiratory Rate 16 40 H Blood Pressure 121/65 Pulse Oximetry 92 L 94 L 06/13/18 04:42 06/13/18 06:00 06/13/18 08:12 Temperature Pulse Rate 52 L Respiratory Rate 16 19 Blood Pressure Pulse Oximetry 93 L 100 Intake & Output 06/12/18 06/13/18 06/13/18 18:59 06:59 18:59 Intake Total 1705 / 1705 1250 / 1250 250 / 250 Output Total 3400 / 3400 2575 / 2575 Balance -1695 / -1695 -1325 / -1325 250 / 250 Weight 148.6 kg Intake: IV 915 / 915 1250 / 1250 250 / 250 Heparin/D5W 25,000 U/250 mL 25, 250 / 250 000 unit In 250 ml @ Per Protocol 9 mls/hr IV.CONT TITRATE PRN Rx#:[id number] 1/2 Normal Saline Inj 1,000 ML 1000 / 1000 @ 20 mls/hr IV.CONT .Q24H BECKY Rx#:[id number] Maxipime Inj 2,000 MG In NS Inj 200 / 200 100 ML @ 200 mls/hr IV.SIG Q12H BECKY Rx#:[id number] Magnesium Sulfate 1 gm/D5W 100 200 / 200 ml Premix 100 ML @ 100 mls/hr IV.SIG Q1H BECKY Rx#:[id number] Vancomycin Inj 1,500 MG In NS 515 / 515 Inj 500 ML @ 250 mls/hr IV.SIG Q18H BECKY Rx#:[id number] fentaNYL 10 mcg/mL Premix Drip 250 / 250 2,500 mcg In 250 ml @ 50 MCG/HR 5 mls/hr IV.SIG TITRATE PRN Rx #:[id number] Tube Feeding 390 / 390 Water Bolus Amount 400 / 400 Output: Urine 3400 / 3400 Urine Amount (Catheter) 2575 / 2575 Indwelling Urethral Catheter 2575 / 2575 Other: Date of Last Bowel Movement 06/12/18 06/12/18 # Bowel Movements 0 1 Lab - Hematology Results 06/12/18 06/13/18 01:20 05:30 WBC 7.7 7.0 RBC 5.01 4.82 Hgb 13.5 13.0 Hct 43.6 41.4 MCV 87.0 85.9 MCH 27.0 27.0 MCHC 31.0 L 31.5 L RDW 17.4 H 17.1 Plt Count 139 L 157 MPV 8.5 8.9 Neut % (Auto) 84.8 H 87.1 H Lymph % (Auto) 7.9 L 7.2 L [place]ole % (Auto) 5.8 4.7 Eos % (Auto) 1.2 0.5 Baso % (Auto) 0.3 0.5 Neut # (Auto) 6.6 6.1 Lymph # (Auto) 0.6 L 0.5 L [place]ole # (Auto) 0.4 0.3 Eos # (Auto) 0.1 0.0 Baso # (Auto) 0.0 0.0 WBC Differential . . Differential Comment Auto diff final Auto diff final Lab - Chemistry Results 06/11/18 06/11/18 06/11/18 11:14 15:56 23:46 Sodium Potassium Chloride Carbon Dioxide Anion Gap BUN Creatinine Estimated GFR POC Glucose 187 H 183 H 117 H Random Glucose Calcium Phosphorus Magnesium 06/12/18 06/12/18 06/12/18 01:20 05:33 12:16 Sodium 141 Potassium 4.1 Chloride 105 Carbon Dioxide 30.4 Anion Gap 6 BUN 23 H Creatinine 0.74 Estimated GFR 78 L POC Glucose 148 H 115 H Random Glucose 124 H Calcium 8.4 L Phosphorus Magnesium 1.9 06/12/18 06/13/18 06/13/18 17:21 01:06 05:30 Sodium 140 Potassium 4.2 Chloride 103 Carbon Dioxide 29.4 Anion Gap 8 BUN 23 H Creatinine 0.71 Estimated GFR 82 L POC Glucose 204 H 197 H Random Glucose 159 H Calcium 9.1 Phosphorus 3.1 Magnesium 2.1 06/13/18 05:39 Sodium Potassium Chloride Carbon Dioxide Anion Gap BUN Creatinine Estimated GFR POC Glucose 159 H Random Glucose Calcium Phosphorus Magnesium Imaging: ITS Impressions Abdomen/Bladder Ultrasound 05/31/18 00:00 CONCLUSION: 1. No obstructive uropathy or other acute abnormality demonstrated. 2. Benign cyst of the right kidney. Abdomen/Pelvis CT 05/31/18 00:00 CONCLUSION: 1. Cholelithiasis. 2. Colonic diverticulosis without definitive evidence for diverticulitis. 3. Prominent uterus with hypodense 6 cm mass anteriorly likely reflecting a pedunculated fibroid. 4. Appendix is not visualized and potentially obscured by the uterine fibroid. 5. Large fat-containing left-sided anterior abdominal wall hernia. 6. Diffuse soft tissue edema in the inferior abdominal pannus. Head CT 05/31/18 00:00 CONCLUSION: 1. No acute intracranial abnormality. 2. Minimal paranasal sinus mucosal disease. Foot X-Ray 06/02/18 00:00 CONCLUSION: There is a destructive change at the distal aspect of the third distal phalanx at the tuft. Osteomyelitis needs be considered. 0.4 cm calcific density seen at the proximal lateral plantar aspect of the third digit. Head MRI 06/07/18 00:00 CONCLUSION: 1. Senescent changes with mild periventricular ischemic white matter demyelination. 2. Otherwise, unremarkable MRI examination of the brain. Specifically, no evidence for acute infarction. 3. Paranasal sinus disease. Chest X-Ray 06/10/18 06:00 CONCLUSION: Considerable improvement left greater than right basilar consolidation and small effusions. Physical Exam: GENERAL: NAD, on the vent. On CPAP SKIN: Cool and dry. Has abdominal striae. No generalized rash HEAD: Atraumatic. Normocephalic. No temporal wasting, or tenderness. EYES: [place] conjunctiva. Pupils equal, round and reactive to light. EARS, NOSE AND THROAT: Nose without bleeding or purulent nasal discharge. Orally intubated. NECK: Short and obese neck, supple, no meningeal signs CARDIOVASCULAR: Regular rate and rhythm. No murmurs, rubs or gallops heard RESPIRATORY: Decreased breath sounds both bases. Has bilateral wheezing ABDOMEN: Obese abdomen, soft, with striae, has large abdominal pannus, has obese mons pubis with excoriations, bowel sounds present and normoactive. No guarding. Dime size wound on L side of abdomen with slough, has serous drainage , no periwound redness EXTREMITIES: No clubbing, pedal edema. Dry gangrene at tip of R 3rd toe, no redness NEUROLOGICAL: Opens eyes some, no Babinski, no clonus PSYCHIATRIC: Unable to assess LINE LIJ: No evidence of infection, has several PIV Assessment and Plan - Plan Impression Sepsis on presentation due to UTI, possible PNA L. UTI, repeat UA better Possible right 3rd toe osteomyelitis. - destructive lesion at the tuft Acute renal failure, likely multifactorial, dehydration, sepsis, resolved Respiratory failure, could have underlying ANIVAL due to morbid obesity, possibly PNA L - developed high pCo2 due to hypoventilation - CXR improving Rash looks like scabies, S/P Rx scabies with permethrim Recommendation Continue IV Cefepime for GNR coverage. - give until 06/14 Stop IV Vanco after trach placement The 3rd toe can be worked up later for osteomyelitis, and address when family decides on goals of Rx Weaning per CCM Monitor progress Seems clinically stable from ID standpoint
[2018-06-13] MEDS: Midazolam 50 MG/50 ML Inj 50 MG/50 ML BAG IV.CONT PRN ×3 (12:06→23:36)
--- NOTE | 2018-06-13 14:27 | P.PNPAL ---
Reason for Visit Reason for visit: a. To assist with evaluation and management of symptoms including: pain, dyspnea, weakness b. To assist medical decision maker(s) with: better understanding of current medical conditions; weighing benefits/burdens of medical treatment options; making medical treatment decisions. Subjective Subjective/Interval History: Dual visit with FERNANDO Sherman. Pt resting in bed, on vent. She does rouse to verbal stimuli. CPAP trials ongoing, peep 6, pressure 16, FiO2 50%. Sat 91%. She indicates she is not feeling SOB. She is having intermittent runs of AF with RVR. She is on fentanyl drip 5mL/hr, versed 8mL/hr. Pt indicates she is not feeling pain. She is able to squeeze my hand weakly on command. She is trying to mouth words. Per family she indicated she "wants the tubes out." Family/Friend Interactions: Teleconference with pt's children Nallely Kulkarni DJ, Sarwat Campbell @1200: -reviewed Patients general health, functional status in the months leading up to the current hospitalization -family understanding of the current medical problems - difficult vent weaning, recurrent arrhythmias -family understanding of prognosis -Patients goals of care as best understood from conversations -Current medical treatment options and benefits/burdens of those options - specifically decisions on tracheostomy and feeding tube, future placement, continued weakness and debility -Likely scenarios comparing ongoing aggressive care with a transition to `` comfort-measures only or home with hospice -Legal decision makers/HCS reviewed - decision making falls to majority of 5 children; children have elected Shad as spokesperson/point of contact -Questions answered to the best of my ability - Palliative care contact information provided All 5 children in consensus to proceed with placement tracheostomy and feeding tube. Requesting subsequent placement at [facility]. Shad is spokesperson/ point of contact. Brief bedside conference with Homero @ 8601: - They told me they asked their mother what she wanted and she indicated that she "wanted tubes out" and "wanted to fight." I gently explained that with tracheostomy there will still be tubes. They said they wanted to talk to her again and would ask her if she wanted a tracheostomy. However, they admitted that even if she said she did not want a tracheostomy and wanted to be comfortable, they "would not be able to let her go" and would "go against her wishes." ADDENDUM BY FERNANDO Quigley: Attended teleconference with FERNANDO Carolina and was present for the telephone conference with the children. At this time, all children voice aggressive goals of proceeding with trach/PEG, although, Adrian did state that he "was torn" between not allowing her to suffer and giving her an opportunity to recover if there were even the slightest chance that she could. Objective Vital Signs: Vital Signs 06/12/18 14:00 06/12/18 14:01 06/12/18 15:00 Temperature Pulse Rate 62 62 89 Respiratory Rate 26 H 25 H 38 H Blood Pressure 116/70 Pulse Oximetry 90 L 90 L 91 L 06/12/18 15:02 06/12/18 15:12 06/12/18 16:00 Temperature 98.8 F Pulse Rate 89 76 47 L Respiratory Rate 24 18 18 Blood Pressure 145/110 H 140/88 115/57 L Pulse Oximetry 91 L 93 L 89 L 06/12/18 16:01 06/12/18 17:00 06/12/18 17:37 Temperature Pulse Rate 49 L 74 78 Respiratory Rate 18 19 Blood Pressure 115/57 L 118/72 Pulse Oximetry 89 L 92 L 06/12/18 18:00 06/12/18 18:01 06/12/18 19:00 Temperature Pulse Rate 79 76 78 Respiratory Rate 19 22 22 Blood Pressure 157/81 H Pulse Oximetry 94 L 92 L 94 L 06/12/18 19:01 06/12/18 20:00 06/12/18 20:03 Temperature 97.6 F Pulse Rate 73 83 80 Respiratory Rate 18 40 H 22 Blood Pressure 150/72 H 131/72 Pulse Oximetry 95 94 L 94 L 06/12/18 20:07 06/12/18 21:00 06/12/18 21:01 Temperature Pulse Rate 84 87 Respiratory Rate 23 21 24 Blood Pressure 130/101 H Pulse Oximetry 95 93 L 92 L 06/12/18 22:00 06/12/18 23:00 06/13/18 00:00 Temperature 98.0 F Pulse Rate 76 73 53 L Respiratory Rate 25 H 18 16 Blood Pressure 121/71 127/71 119/72 Pulse Oximetry 95 91 L 93 L 06/13/18 00:01 06/13/18 00:50 07/23/18 01:00 Temperature Pulse Rate 56 L 51 L Respiratory Rate 16 16 16 Blood Pressure 119/72 Pulse Oximetry 93 L 92 L 92 L 06/13/18 01:01 06/13/18 02:00 06/13/18 02:01 Temperature Pulse Rate 60 70 71 Respiratory Rate 18 17 17 Blood Pressure 135/58 L 123/75 Pulse Oximetry 92 L 97 96 06/13/18 03:00 06/13/18 04:00 06/13/18 04:01 Temperature 97.7 F Pulse Rate 65 55 L 54 L Respiratory Rate 16 16 16 Blood Pressure 129/69 121/65 121/65 Pulse Oximetry 95 94 L 95 06/13/18 04:42 06/13/18 05:00 06/13/18 05:01 Temperature Pulse Rate 45 L 51 L Respiratory Rate 16 16 16 Blood Pressure 119/76 Pulse Oximetry 93 L 95 95 06/13/18 06:00 06/13/18 06:01 06/13/18 07:00 Temperature Pulse Rate 52 L 53 L 49 L Respiratory Rate 16 16 16 Blood Pressure 110/61 Pulse Oximetry 93 L 93 L 94 L 06/13/18 07:01 06/13/18 08:00 06/13/18 08:12 Temperature Pulse Rate 53 L 56 L Respiratory Rate 16 16 19 Blood Pressure 104/58 L 102/60 Pulse Oximetry 94 L 95 100 06/13/18 09:00 06/13/18 10:00 06/13/18 11:00 Temperature Pulse Rate 71 68 76 Respiratory Rate 20 21 22 Blood Pressure 117/65 117/59 L 127/64 Pulse Oximetry 95 94 L 91 L 06/13/18 11:24 06/13/18 12:00 Temperature Pulse Rate 79 Respiratory Rate 22 Blood Pressure Pulse Oximetry 91 L Intake & Output 06/12/18 06/13/18 06/13/18 18:59 06:59 18:59 Intake Total 1705 / 1705 1250 / 1250 300 / 300 Output Total 3400 / 3400 2575 / 2575 Balance -1695 / -1695 -1325 / -1325 300 / 300 Weight 148.6 kg Intake: IV 915 / 915 1250 / 1250 300 / 300 Heparin/D5W 25,000 U/250 mL 25, 250 / 250 000 unit In 250 ml @ Per Protocol 9 mls/hr IV.CONT TITRATE PRN Rx#:[id number] Versed Inj 50 mg In 50 ml @ 2 50 / 50 MG/HR 2 mls/hr IV.CONT TITRATE PRN Rx#:[id number] 1/2 Normal Saline Inj 1,000 ML 1000 / 1000 @ 20 mls/hr IV.CONT .Q24H BECKY Rx#:[id number] Maxipime Inj 2,000 MG In NS Inj 200 / 200 100 ML @ 200 mls/hr IV.SIG Q12H BECKY Rx#:[id number] Magnesium Sulfate 1 gm/D5W 100 200 / 200 ml Premix 100 ML @ 100 mls/hr IV.SIG Q1H BECKY Rx#:[id number] Vancomycin Inj 1,500 MG In NS 515 / 515 Inj 500 ML @ 250 mls/hr IV.SIG Q18H BECKY Rx#:[id number] fentaNYL 10 mcg/mL Premix Drip 250 / 250 2,500 mcg In 250 ml @ 50 MCG/HR 5 mls/hr IV.SIG TITRATE PRN Rx #:[id number] Tube Feeding 390 / 390 Water Bolus Amount 400 / 400 Output: Urine 3400 / 3400 Urine Amount (Catheter) 2575 / 2575 Indwelling Urethral Catheter 2575 / 2575 Other: Date of Last Bowel Movement 06/12/18 06/12/18 06/12/18 # Bowel Movements 0 1 Physical Exam: CONSTITUTIONAL/GENERAL: morbidly obese female, sedated on vent TUBES/LINES/DRAINS: IJ, gutiérrez, ETtube, soft restraints upper extremities, OG tube SKIN: Very pale. marked striations left panniculus. 3-4 mm ulceration left pannus, with clean dressing. right third toe dusky with nail changes EYES: PERRL. No scleral icterus. Fundi not examined. +periorbital edema ENT: Nose without bleeding or purulent drainage. Throat exam limited by ET tube CARDIOVASCULAR: irregular, tachycardic without murmurs. No JVD. Generalized peripheral edema. RESPIRATORY/CHEST: Respirations even and unlabored via ET tube to mechanical vent. Course breath sounds, diminished air movement. GASTROINTESTINAL: Abdomen soft, obese, +hernia. Bowel sounds present. + tube feed infusing via OG tube GENITOURINARY: Without palpable bladder distension. Gutiérrez catheter in place. Skin on lower panniculus is macerated MUSCULOSKELETAL: BUE edema. BUE soft restraints NEUROLOGICAL: opens eyes. squeezes hand on command, can indicate 'no' by shaking head PSYCHIATRIC: No apparent anxiety, limited assessment due to clinical condition Diagnostic Tests Laboratory: Laboratory Results - last 72 hr 06/10/18 06/10/18 06/10/18 16:19 17:27 23:43 WBC RBC Hgb Hct MCV MCH MCHC RDW Plt Count MPV Neut % (Auto) Lymph % (Auto) Fisher % (Auto) Eos % (Auto) Baso % (Auto) Neut # (Auto) Lymph # (Auto) Fisher # (Auto) Eos # (Auto) Baso # (Auto) WBC Differential Differential Comment PT 10.0 INR 1.0 APTT 24.1 L Sodium Potassium Chloride Carbon Dioxide Anion Gap BUN Creatinine Estimated GFR POC Glucose 159 H 147 H Random Glucose Calcium Phosphorus Magnesium Digoxin 06/11/18 06/11/18 06/11/18 00:20 04:42 04:42 WBC 7.8 RBC 4.99 Hgb 13.5 Hct 43.7 MCV 87.7 MCH 27.1 MCHC 30.9 L RDW 17.2 Plt Count 137 L MPV 8.7 Neut % (Auto) 83.6 H Lymph % (Auto) 7.2 L Fisher % (Auto) 7.4 Eos % (Auto) 1.2 Baso % (Auto) 0.6 Neut # (Auto) 6.5 Lymph # (Auto) 0.6 L Fisher # (Auto) 0.6 Eos # (Auto) 0.1 Baso # (Auto) 0.0 WBC Differential . Differential Comment Auto diff final PT INR APTT 31.7 H D Sodium 141 Potassium 4.4 Chloride 105 Carbon Dioxide 27.8 Anion Gap 8 BUN 26 H Creatinine 0.72 Estimated GFR 81 L POC Glucose Random Glucose 212 H Calcium 8.5 Phosphorus 3.7 D Magnesium 1.8 Digoxin 06/11/18 06/11/18 06/11/18 05:46 07:20 11:14 WBC RBC Hgb Hct MCV MCH MCHC RDW Plt Count MPV Neut % (Auto) Lymph % (Auto) Fisher % (Auto) Eos % (Auto) Baso % (Auto) Neut # (Auto) Lymph # (Auto) Fisher # (Auto) Eos # (Auto) Baso # (Auto) WBC Differential Differential Comment PT INR APTT 35.0 H Sodium Potassium Chloride Carbon Dioxide Anion Gap BUN Creatinine Estimated GFR POC Glucose 183 H 187 H Random Glucose Calcium Phosphorus Magnesium Digoxin 06/11/18 06/11/18 06/11/18 14:25 15:56 20:30 WBC RBC Hgb Hct MCV MCH MCHC RDW Plt Count MPV Neut % (Auto) Lymph % (Auto) Fisher % (Auto) Eos % (Auto) Baso % (Auto) Neut # (Auto) Lymph # (Auto) Fisher # (Auto) Eos # (Auto) Baso # (Auto) WBC Differential Differential Comment PT INR APTT 36.6 H 36.6 H Sodium Potassium Chloride Carbon Dioxide Anion Gap BUN Creatinine Estimated GFR POC Glucose 183 H Random Glucose Calcium Phosphorus Magnesium Digoxin 06/11/18 06/12/18 06/12/18 23:46 01:20 01:20 WBC 7.7 RBC 5.01 Hgb 13.5 Hct 43.6 MCV 87.0 MCH 27.0 MCHC 31.0 L RDW 17.4 H Plt Count 139 L MPV 8.5 Neut % (Auto) 84.8 H Lymph % (Auto) 7.9 L Fisher % (Auto) 5.8 Eos % (Auto) 1.2 Baso % (Auto) 0.3 Neut # (Auto) 6.6 Lymph # (Auto) 0.6 L Fisher # (Auto) 0.4 Eos # (Auto) 0.1 Baso # (Auto) 0.0 WBC Differential . Differential Comment Auto diff final PT INR APTT Sodium 141 Potassium 4.1 Chloride 105 Carbon Dioxide 30.4 Anion Gap 6 BUN 23 H Creatinine 0.74 Estimated GFR 78 L POC Glucose 117 H Random Glucose 124 H Calcium 8.4 L Phosphorus Magnesium 1.9 Digoxin 0.7 L 06/12/18 06/12/18 06/12/18 05:10 05:33 12:16 WBC RBC Hgb Hct MCV MCH MCHC RDW Plt Count MPV Neut % (Auto) Lymph % (Auto) Fisher % (Auto) Eos % (Auto) Baso % (Auto) Neut # (Auto) Lymph # (Auto) Fisher # (Auto) Eos # (Auto) Baso # (Auto) WBC Differential Differential Comment PT INR APTT 39.4 H Sodium Potassium Chloride Carbon Dioxide Anion Gap BUN Creatinine Estimated GFR POC Glucose 148 H 115 H Random Glucose Calcium Phosphorus Magnesium Digoxin 06/12/18 06/12/1818 13:45 17:21 20:00 WBC RBC Hgb Hct MCV MCH MCHC RDW Plt Count MPV Neut % (Auto) Lymph % (Auto) Fisher % (Auto) Eos % (Auto) Baso % (Auto) Neut # (Auto) Lymph # (Auto) Fisher # (Auto) Eos # (Auto) Baso # (Auto) WBC Differential Differential Comment PT INR APTT 39.4 H 42.7 H Sodium Potassium Chloride Carbon Dioxide Anion Gap BUN Creatinine Estimated GFR POC Glucose 204 H Random Glucose Calcium Phosphorus Magnesium Digoxin 06/13/18 06/13/18 06/13/18 01:06 05:30 05:30 WBC 7.0 RBC 4.82 Hgb 13.0 Hct 41.4 MCV 85.9 MCH 27.0 MCHC 31.5 L RDW 17.1 Plt Count 157 MPV 8.9 Neut % (Auto) 87.1 H Lymph % (Auto) 7.2 L Fisher % (Auto) 4.7 Eos % (Auto) 0.5 Baso % (Auto) 0.5 Neut # (Auto) 6.1 Lymph # (Auto) 0.5 L Fisher # (Auto) 0.3 Eos # (Auto) 0.0 Baso # (Auto) 0.0 WBC Differential . Differential Comment Auto diff final PT INR APTT Sodium 140 Potassium 4.2 Chloride 103 Carbon Dioxide 29.4 Anion Gap 8 BUN 23 H Creatinine 0.71 Estimated GFR 82 L POC Glucose 197 H Random Glucose 159 H Calcium 9.1 Phosphorus 3.1 Magnesium 2.1 Digoxin 06/13/18 06/13/18 05:30 05:39 WBC RBC Hgb Hct MCV MCH MCHC RDW Plt Count MPV Neut % (Auto) Lymph % (Auto) Fisher % (Auto) Eos % (Auto) Baso % (Auto) Neut # (Auto) Lymph # (Auto) Fisher # (Auto) Eos # (Auto) Baso # (Auto) WBC Differential Differential Comment PT INR APTT 41.5 H Sodium Potassium Chloride Carbon Dioxide Anion Gap BUN Creatinine Estimated GFR POC Glucose 159 H Random Glucose Calcium Phosphorus Magnesium Digoxin Result Diagrams: 06/13/18 05:30 06/13/18 05:30 Imaging: ITS Impressions Abdomen/Bladder Ultrasound 05/31/18 00:00 CONCLUSION: 1. No obstructive uropathy or other acute abnormality demonstrated. 2. Benign cyst of the right kidney. Abdomen/Pelvis CT 05/31/18 00:00 CONCLUSION: 1. Cholelithiasis. 2. Colonic diverticulosis without definitive evidence for diverticulitis. 3. Prominent uterus with hypodense 6 cm mass anteriorly likely reflecting a pedunculated fibroid. 4. Appendix is not visualized and potentially obscured by the uterine fibroid. 5. Large fat-containing left-sided anterior abdominal wall hernia. 6. Diffuse soft tissue edema in the inferior abdominal pannus. Head CT 05/31/18 00:00 CONCLUSION: 1. No acute intracranial abnormality. 2. Minimal paranasal sinus mucosal disease. Foot X-Ray 06/02/18 00:00 CONCLUSION: There is a destructive change at the distal aspect of the third distal phalanx at the tuft. Osteomyelitis needs be considered. 0.4 cm calcific density seen at the proximal lateral plantar aspect of the third digit. Head MRI 06/07/18 00:00 CONCLUSION: 1. Senescent changes with mild periventricular ischemic white matter demyelination. 2. Otherwise, unremarkable MRI examination of the brain. Specifically, no evidence for acute infarction. 3. Paranasal sinus disease. Chest X-Ray 06/10/18 06:00 CONCLUSION: Considerable improvement left greater than right basilar consolidation and small effusions. Procedures: 05/31 intubated 05/31 IJ placed 06/09 IJ placed Assessment and Plan - Disease Oriented Problem List (1) Respiratory failure (2) COPD exacerbation (3) Sepsis secondary to UTI (4) SVT (supraventricular tachycardia) (5) Acute kidney injury (6) Acute UTI (urinary tract infection) Pertinent Non-Medical Issues: Psychosocial: 3 months ago moved from [place] to [place]. Lives at home with son Shad, daughter Yissel "Nallely" and Shad's . Shad and his take care of pt. She is originally from . She worked at [employer] for 14 years. She was but her 2 years ago. Spiritual: per son she identified with no particular pentecostal Legal: pt incapacitated to make decisions at this time. It is not clear if she will regain that capacity. Per [place] statutes medical decision making would fall to the majority of her 5 children. Ethical issues impacting care: none identified Important Contacts: Son Shad (local) [phone] (local "emergency contact" spokesperson per the other children) Daughter Yissel Sanchez" (local) [phone] [place] Children: Adrian Scott [phone] Adarsh "SARAI" Tyler [phone] Sarwat Osborne (incarcerated) - [place], [place] POC Captain Hanley, Prognosis: 67 yo morbidly obese female with hx tobacco abuse, diabetes who presented with progressive weakness and was found to be septic with SUNIL, UTI. She developed respiratory distress and was intubated. Her kidney function has improved somewhat. Her underlying morbid obesity may significantly impair her ability to recover from a respiratory standpoint, as will her likely underlying COPD. Prior she was mostly sedentary and unable to care for herself; much of that burden had fallen to her son who admittedly is quite overwhelmed. If she requires ventilatory support beyond another week, she will require tracheostomy and feeding tube. Should she recover enough to be extubated, she will need placement in a nursing facility. Her numerous comorbidities and poor prior health status put her at significant risk for continued complications and decline. Code Status: Alternative Code (intubation only) Plan: * LEGAL DECISION MAKER - pt incapacitated to make decisions at this time. It is not clear if she will regain that capacity. [place] statutes medical decision making would fall to the majority of her 5 children. Children agree for [facility] to be spokesperson, point of contact. * GOALS - The children are making an effort to work together. They appoint [facility] local emergency spokesperson. Goals are aggressive. All 5 children in consensus to proceed with placement tracheostomy and feeding tube. Pt indicating she "wants tubes out" per children and "wants to fight." * CODE STATUS - alternative code, intubation only * SYMPTOMS - * dyspnea - multifactorial. intubated 05/31 after change in mental status. reported hx ANIVAL untreated, COPD, heavy tobacco use, ?pickwick syndrome, +atrial flutter with RVR. ID feels respiratory issues 2/2 COPD exacerbation in obese smoker. CPAP trial in progress PS 18, PEEP 6, FiO2 50%. Has scheduled duonebs , steroid taper * pain - multifactorial 2/2 multiples lines, catheter, discomfort from ET tube. Appears comfortable on my eval, indicates no pain. Has fentanyl drip 5ml/ hr. * weakness/debility - 2/2 morbid obesity, sedentary lifestyle and subsequent deconditioning, sepsis. Was having lower extremity weakness for prior 3 weeks and on admission was unable to get up. PT following. Likely to worsen with continued bedbound status. * Family requesting placement at [facility] * discussed with RN, DALE * Palliative care will continue to follow as hospital course evolves to assist pt/decision makers weight benefits and burdens of treatment options, and assist with symptoms of palliative concern Attestation Attestation: To help prompt me to consider important information that might be impacting today's encounter and assessment, information from prior notes written by myself or my colleagues may have been "brought forward" into today's note. My signature on this note, however, is an attestation that I personally performed the exam, history, and/or decision-making noted today, and, unless otherwise indicated, the interactions with patient, family, and staff as well as the review of records all occurred today. I also attest that the listed assessment and stated plan reflect my best clinical judgment today based on the combination of historical information, prior notes, and today's exam/ interactions. When time spent is documented, it refers only to time spent today by the signer, or if indicated, combined time spent today by collaborating physician/nurse practitioner.
[2018-06-13] MEDS: Sodium Chloride 0.45 % Inj 1,000 ML IV.CONT SCH (18:53)
[2018-06-13] MEDS: Hypromellose 0.3% Opth Gel 10 GM Bottle EACH EYE SCH (20:34)
--- NOTE | 2018-06-13 21:46 | P.PNCC ---
Subjective Subjective Remarks/Hospital Course: Mrs. Scott is a 67-year-old female with past medical history significant for morbid obesity, type 2 diabetes, hypertension, probable COPD who was brought in by the family yesterday night because of increasing weakness and lethargic, this was ongoing for last 2 weeks got worse over the last 2 days. Unable to get detailed history from patient due to lethargy. ER workup showed patient had a urinary tract infection and sepsis, also chest x-ray showed bilateral interstitial infiltrates, and LLL consolidation. There is also evidence of acute kidney injury with creatinine up to 2.59, BUN 89. Intermittently having tachyarrhythmia/atrial flutter with rate in in 130s. Patient was admitted to the hospital service. At the time of hospitalist (Dr. Mckeon) evaluation patient was very lethargic and ABG showed a pH of 7.08 and a PCO2 of 91, PO2 was 70 on 5 L nasal cannula. Patient was immediately placed on BiPAP. Approximately after 45 minutes ABG was repeat showed only marginal improvement pH of 7.12 and PCO2 of 84. Patient was emergently transferred to the ICU and critical care was consulted I evaluated the patient in the ICU. She is currently on BiPAP 15/. Patient is lethargic, even though arousable she falls right back to sleep. Airway protection was questionable. With severe hypercarbic respiratory failure complicated with sepsis, metabolic encephalopathy and acute kidney failure, decision was made to intubate the patient. I endotracheally intubate the patient in placed on the mechanical ventilation. Prior to and post intubation patient heart rate remained in 130s. Hypotensive postintubation, stat 2 L fluid boluses given. Also started on Levophed to keep map above 65. Patient had been placed on Rocephin and will discontinue this and start renally dosed cefepime, add azithromycin for atypical coverage. ID consulted for questionable scabies and sepsis with shock 06/02: Remains critically ill but stabilizing more. ABG shows correction of severe hypercapnia. FiO2 remains at 50%. Urine output adequate BUN remains elevated creatinine slightly improved. Received treatment with permethrin 06/02: Currently afebrile. Bradycardic on the ventilator. Will adjust sedation to midazolam and fentanyl drips. Tolerating tube feeds at 30 cc an hour. XRT of the right foot ordered. 06/03 No events overnight. Sedated with Versed and Fentanyl drips. Afebrile. 06/04: Remains on midazolam drip at 4 mg an hour and fentanyl drip at 100 mcg an hour. Tolerating tube feeds. Currently afebrile. Failed spontaneous breathing trials today. 06/05: Ventilator settings unchanged. Remains on midazolam drip at 5 mg an hour and fentanyl drip at 100 mcg an hour. Tolerating tube feeds. We will reattempt spontaneous breathing trials today. 06/06 Patient is sedated with Fentanyl and versed drips and intubated. Afebrile. 06/07: Afebrile. Remains on midazolam drip at 5 mg an hour and fentanyl drip at 100 mcg an hour. MRI brain revealed no acute intracranial findings. Opens eyes. Not following commands currently. 06/08: Afebrile. Remains on midazolam drip. Opens eyes but not following commands currently. Tolerating tube feeds at goal. Positive BM. 06/09: Tolerated CPAP trials 8 hours yesterday. Not tolerating today. Opens eyes but not follows commands. Tube feeds at goal. Positive BM. Remains on midazolam and fentanyl drips. 06/10: Afebrile. Currently on CPAP trial. 16/8 at 45%. Eyes are open. Currently in A. fib rate controlled. Will start on heparin drip. 06/11: Patient became tachycardic with A. fib with RVR and CPAP trial. Attempted 15/6 at 45%. Eyes are open. Follows commands. 06/12: We will place on dexmedetomidine and attempt CPAP today. Watch for bradycardia.. Tolerating tube feeding. Tracheostomy with palliative care discussion planned for tomorrow Wednesday 06/13. Subjective 06/13: Fails CPAP trials. Family in agreement for percutaneous tracheostomy and percutaneous gastrostomy tube placement. Consult [address] Patient currently in sinus bradycardia. Objective Vital Signs / I&O: Vital Signs 06/12/18 22:00 06/12/18 23:00 06/13/18 00:00 Temperature 98.0 F Pulse Rate 76 73 53 L Respiratory Rate 25 H 18 16 Blood Pressure 121/71 127/71 119/72 Pulse Oximetry 95 91 L 93 L 06/13/18 00:01 06/13/18 00:50 06/13/18 01:00 Temperature Pulse Rate 56 L 51 L Respiratory Rate 16 16 16 Blood Pressure 119/72 Pulse Oximetry 93 L 92 L 92 L 06/13/18 01:01 06/13/18 02:00 06/13/18 02:01 Temperature Pulse Rate 60 70 71 Respiratory Rate 18 17 17 Blood Pressure 135/58 L 123/75 Pulse Oximetry 92 L 97 96 06/13/18 03:00 06/13/18 04:00 06/13/18 04:01 Temperature 97.7 F Pulse Rate 65 55 L 54 L Respiratory Rate 16 16 16 Blood Pressure 129/69 121/65 121/65 Pulse Oximetry 95 94 L 95 06/13/18 04:42 06/13/18 05:00 06/13/18 05:01 Temperature Pulse Rate 45 L 51 L Respiratory Rate 16 16 16 Blood Pressure 119/76 Pulse Oximetry 93 L 95 95 06/13/18 06:00 06/13/18 06:01 06/13/18 07:00 Temperature Pulse Rate 52 L 53 L 49 L Respiratory Rate 16 16 16 Blood Pressure 110/61 Pulse Oximetry 93 L 93 L 94 L 06/13/18 07:01 06/13/18 08:00 06/13/18 08:12 Temperature Pulse Rate 53 L 56 L Respiratory Rate 16 16 19 Blood Pressure 104/58 L 102/60 Pulse Oximetry 94 L 95 100 06/13/18 09:00 06/13/18 10:00 06/13/18 11:00 Temperature Pulse Rate 71 68 76 Respiratory Rate 20 21 22 Blood Pressure 117/65 117/59 L 127/64 Pulse Oximetry 95 94 L 91 L 06/13/18 11:24 06/13/18 12:00 06/13/18 12:01 Temperature 99.9 F H Pulse Rate 79 80 Respiratory Rate 22 24 25 H Blood Pressure 119/57 L 126/61 Pulse Oximetry 91 L 89 L 90 L 06/13/18 13:00 06/13/18 14:00 06/13/18 15:00 Temperature Pulse Rate 85 86 52 L Respiratory Rate 16 24 16 Blood Pressure 132/66 131/89 Pulse Oximetry 92 L 95 93 L 06/13/18 15:01 06/13/18 15:40 06/13/18 16:00 Temperature 98.9 F Pulse Rate 50 L 52 L 49 L Respiratory Rate 16 16 16 Blood Pressure 106/56 L 112/53 L 125/60 Pulse Oximetry 93 L 93 L 95 06/13/18 16:01 06/13/18 16:19 06/13/18 16:31 Temperature Pulse Rate 52 L 46 L Respiratory Rate 16 17 16 Blood Pressure 110/53 L 116/56 L Pulse Oximetry 95 97 96 06/13/18 17:00 06/13/18 17:01 06/13/18 17:31 Temperature Pulse Rate 55 L 46 L 55 L Respiratory Rate 16 16 16 Blood Pressure 117/59 L 116/55 L Pulse Oximetry 94 L 94 L 93 L 06/13/18 18:00 06/13/18 18:01 06/13/18 18:31 Temperature Pulse Rate 55 L 54 L 68 Respiratory Rate 16 16 16 Blood Pressure 113/55 L 124/72 Pulse Oximetry 94 L 94 L 98 06/13/18 19:00 06/13/18 19:01 06/13/18 19:31 Temperature Pulse Rate 56 L 54 L 62 Respiratory Rate 16 16 17 Blood Pressure 130/58 L 128/59 L Pulse Oximetry 96 96 97 06/13/18 20:00 06/13/18 20:01 Temperature 98.8 F Pulse Rate 54 L 53 L Respiratory Rate 16 16 Blood Pressure 123/59 L Pulse Oximetry 93 L 94 L Intake & Output 06/13/18 06/13/18 06/14/18 06:59 18:59 06:59 Intake Total 1350 / 1350 2122 / 2122 100 / 100 Output Total 2575 / 2575 1200 / 1200 Balance -1225 / -1225 922 / 922 100 / 100 Weight 148.6 kg Intake: IV 1350 / 1350 1350 / 1350 100 / 100 Heparin/D5W 25,000 U/250 mL 25, 250 / 250 000 unit In 250 ml @ Per Protocol 9 mls/hr IV.CONT TITRATE PRN Rx#:[id number] Versed Inj 50 mg In 50 ml @ 2 100 / 100 MG/HR 2 mls/hr IV.CONT TITRATE PRN Rx#:[id number] 1/2 Normal Saline Inj 1,000 ML 1000 / 1000 1000 / 1000 @ 20 mls/hr IV.CONT .Q24H BECKY Rx#:[id number] Maxipime Inj 2,000 MG In NS Inj 100 / 100 100 / 100 100 ML @ 200 mls/hr IV.SIG Q12H BECKY Rx#:[id number] fentaNYL 10 mcg/mL Premix Drip 250 / 250 2,500 mcg In 250 ml @ 50 MCG/HR 5 mls/hr IV.SIG TITRATE PRN Rx #:[id number] Tube Feeding 772 / 772 Output: Urine Amount (Catheter) 2575 / 2575 1200 / 1200 Indwelling Urethral Catheter 2575 / 2575 1200 / 1200 Other: Date of Last Bowel Movement 06/12/18 06/12/18 06/12/18 # Bowel Movements 1 Result Diagrams: 06/13/18 05:30 06/13/18 05:30 Other Results: Microbiology 05/30/18 22:21 Blood - Peripheral Aerobic Blood Culture - Final No growth in 5 days 05/30/18 22:21 Blood - Peripheral Anaerobic Blood Culture - Final No growth in 5 days 05/30/18 22:21 Blood - Peripheral Aerobic Blood Culture - Final No growth in 5 days 05/30/18 22:21 Blood - Peripheral Anaerobic Blood Culture - Final No growth in 5 days 05/31/18 14:50 Wound - Abdominal Gram Stain - Final 05/31/18 14:50 Wound - Abdominal Wound Culture - Final S. aureus MRSA 05/31/18 13:08 Urine - Catheterized Urine Streptococcus pneumoniae Antigen ( M - Final Presumptive negative for streptococcus pneumoniae antigen, suggesting no current or recent infection. Infection due to Streptococcus pneumoniae cannot be ruled out since the antigen present in the sample may be below the detection limit of the test. 05/31/18 13:08 Urine - Catheterized Urine Legionella Antigen - Final Presumptive negative for Legionella pneumophila serogroup 1 antigen in urine, suggesting no recent or recurrent infection. Infection due to Legionella cannot be ruled out since other serogroups and species may cause disease, antigen may not be present in urine in early infection, and the level of antigen present in the urine may be below the detection limit of the test. 05/30/18 22:56 Clean Catch Urine Urine Culture - Final 50-100,000 cfu/mL mixed leesa (probable contaminants ) Imaging: Chest X-Ray 05/30/18 22:09 CONCLUSION: Cardiomegaly. Diffuse increased interstitial markings likely related to edema. Increased density at the left base with silhouetting of the left hemidiaphragm secondary to left base atelectasis, consolidation and/or effusion. Abdomen/Bladder Ultrasound 05/31/18 00:00 CONCLUSION: 1. No obstructive uropathy or other acute abnormality demonstrated. 2. Benign cyst of the right kidney. Abdomen/Pelvis CT 05/31/18 00:00 CONCLUSION: 1. Cholelithiasis. 2. Colonic diverticulosis without definitive evidence for diverticulitis. 3. Prominent uterus with hypodense 6 cm mass anteriorly likely reflecting a pedunculated fibroid. 4. Appendix is not visualized and potentially obscured by the uterine fibroid. 5. Large fat-containing left-sided anterior abdominal wall hernia. 6. Diffuse soft tissue edema in the inferior abdominal pannus. Head CT 05/31/18 00:00 CONCLUSION: 1. No acute intracranial abnormality. 2. Minimal paranasal sinus mucosal disease. Chest X-Ray 05/31/18 13:55 CONCLUSION: 1. Cardiomegaly with resolving interstitial edema and improving aeration in the left lung base. 2. Endotracheal tube appropriately positioned above the brittnee. Nasogastric tube is curled in the gastric fundus and the left IJ central venous catheter is identified. At the junction of the left and right brachiocephalic vein. Foot X-Ray 06/02/18 00:00 CONCLUSION: There is a destructive change at the distal aspect of the third distal phalanx at the tuft. Osteomyelitis needs be considered. 0.4 cm calcific density seen at the proximal lateral plantar aspect of the third digit. Chest X-Ray 06/02/18 06:00 CONCLUSION: 1. Stable tubes and lines. 2. Cardiomegaly with positive fluid balance. 3. Stable left and worsening right lower lung zone airspace disease. Chest X-Ray 06/03/18 06:00 CONCLUSION: Cardiomegaly with bilateral airspace disease greater in the right lung, unchanged. Chest X-Ray 06/04/18 00:00 CONCLUSION: No significant change Chest X-Ray 06/05/18 06:00 CONCLUSION: No significant change Chest X-Ray 06/06/18 06:00 CONCLUSION: Support apparatus unchanged. Bilateral mostly basilar airspace disease and cardiomegaly with effusions also not significantly changed considering differences in technique. Head MRI 06/07/18 00:00 CONCLUSION: 1. Senescent changes with mild periventricular ischemic white matter demyelination. 2. Otherwise, unremarkable MRI examination of the brain. Specifically, no evidence for acute infarction. 3. Paranasal sinus disease. Chest X-Ray 06/08/18 06:00 CONCLUSION: No significant change in bilateral mostly basilar and dependent airspace disease and possible mild edema. Endotracheal tube and nasogastric tube unchanged. Left central line in left brachiocephalic vein. Chest X-Ray 06/09/18 06:00 CONCLUSION: Stable bilateral airspace disease and pleural effusions. Endotracheal tube and nasogastric tube unchanged. Chest X-Ray 06/09/18 16:16 CONCLUSION: Interval placement of a right jugular central venous catheter which extends into the right atrium. No evidence of pneumothorax. Otherwise no change. Chest X-Ray 06/10/18 06:00 CONCLUSION: Considerable improvement left greater than right basilar consolidation and small effusions. Objective Remarks: GENERAL: 67-year-old female currently resting in bed currently orotracheally intubated SKIN: Cool and dry. Tinea cruris, axillary region and under the breasts. Excoriated pannus in back. Purple rash and excoriation bilateral lower extremity HEAD: Atraumatic. Normocephalic. No temporal wasting, or tenderness. EYES: Pupils equal, round and reactive to light. Extraocular movements are present EARS, NOSE AND THROAT: Edentulous. Mucous membranes dry. Orotracheally intubated NECK: Short and obese neck, supple, right IJ is clean dry and intact. CARDIOVASCULAR: Diminished heart sounds secondary to body habitus. Bradycardic , RR No murmurs, rubs or gallops heard RESPIRATORY: Diminished breath sounds throughout due to body habitus. No wheezing ABDOMEN: Obese abdomen, soft, with multiple striae and excoriations. Hypoactive bowel sounds EXTREMITIES: Positive pedal edema. Has mild mottling both feet. Purple rash and excoriation bilateral lower extremity. Necrotic appearing right third toe. NEUROLOGICAL: Cranial nerves appear to be grossly intact. Positive gag and cough. Spontaneously moves extremities to stimulation. Currently spontaneously opens eyes. She is following commands at the present time. Assessment and Plan - Assessment and Plan Plan: NEURO/Psych: Acute severe encephalopathy secondary to severe sepsis/hypercarbia Depression disorder NOS Chronic benzodiazepine use On midazolam drip at 2 mg an hour and fentanyl drip at 50 mcg an hour for sedation. Daily sedation vacation. Goal of RASS -2 CT brain on admission revealed no acute intracranial findings 06/06 EEG, severe encephalopathy/epileptiform activity Acetaminophen 650 every 6 hours as needed fever Holding citalopram 20 mg daily/home medication for depression. Resume clinically indicated On lorazepam 0.5 mg at night as needed. Currently on 1 mg every 15 minutes for possible seizure activity? MRI brain revealed no acute intracranial abnormalities RESP: Acute respiratory failure/hypercarbic and hypoxemic Acute COPD exacerbation Probable community-acquired pneumonia On PC/AC RR 18, IP: 23, IT:1.0, PEEP:8, FIO2 45 CPAP 15/6 and 40% as tolerated Ventilator bundle -Albuterol/ipratropium aerosols every 4 hours scheduled and albuterol aerosols every 2 hours as needed Continue IV methylprednisolone succinate 40 mg daily Spontaneous breathing trials as clinically indicated Ordered general surgery for percutaneous tracheostomy CV: Atrial flutter with rapid ventricular response Sinus bradycardia currently sinus tachycardia History of essential hypertension History of dyslipidemia Off all vasopressors -Echo showed EF 50-55% -Monitor HR and BP keep MAP>65mmHg Currently on pravastatin 80 mg daily, hospital substitution for simvastatin 40 mg daily which is her home medication On digoxin 0.25 mg daily. Check level in a.m. 06/14 GI: Hypoalbuminemia Cholelithiasis Sigmoid diverticulosis Abdominal wall hernia/left-sided Hypoalbuminemia -on tube feeds with vital high-protein goal 65 cc an hour. 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 avoid nephrotoxins -Renal ultrasound -right renal cyst otherwise no signs of obstruction. -Nephrology is following, Dr. Narvaez Free water 200ml Q6 ID: UTI Wound cultures positive for MRSA -ID following, c 06/13 discontinued cefepime and vancomycin per IDs recommendation. Azithromycin discontinued 06/03 ceftaroline discontinued 06/06 Monitor or signs of infections (Fever, WBC) Right 3rd toe and other skin lesions/cellulitis on LLE likely sources of infection Xray foot: There is a destructive change at the distal aspect of the third distal phalanx at the tuft. 0.4 cm calcific density seen at the proximal lateral plantar aspect of the third digit. Podiatry is following, might need right third digit amputation per Podiatry Mupirocin to nares twice daily Pertinent cultures 05/31 -wound culture -MRSA 05/30 -blood cultures 2 -no growth 05/30 -UA -50- 100,000 -s/p Permethrin cream 5% for possible scabies HEME: Thrombocytopenia No indication for transfusion of blood products at this time -Monitor CBC, CMP, coags FEN/ENDO: Diabetes mellitus Hypophosphatemia Holding home medications Metformin 1000 mg twice daily and glipizide at 5 mg twice daily. TSH 0.97 Insulin detemir 32 units BID and SSI with Novolin R q. 6 hour Accu-Cheks MSK: Elevated BMI Necrotic right third toe. Xray foot: There is a destructive change at the distal aspect of the third distal phalanx at the tuft. Podiatry is following, recommend amputation when clinically stable Wt loss encouraged PT evaluate and treat PROPH: -Bilateral lower extremity SCDs. Heparin drip provides DVT prophylaxis. Lansoprazole 30 mg daily LINES: -Left IJ central line placed 05/31/18 discontinued 06/09. Right IJ CVL placed Palliative care is following Level 3 follow-up
[2018-06-14] MEDS: Heparin Drip 25,000 UNIT/250 ML BAG IV.CONT PRN ×2 (01:45→19:10)
[2018-06-14 03:52] LABS: Baso % (Auto) 0.4 % (0.0-2.0); Eos % (Auto) 0.4 % (0.0-4.0); Hematocrit 39.9 % (35.0-46.0); Hemoglobin 12.5 gm/dL (11.6-15.3); Lymph # (Auto) 0.6 th/mm3 (1.0-4.8); Lymph % (Auto) 7.2 % (9.0-44.0); Mean Corpuscular HGB Conc 31.2 % (32.0-36.0); Mean Corpuscular Hemoglobin 27.1 pg (27.0-34.0); Mean Corpuscular Volume 86.8 fL (80.0-100.0); Mean Platelet Volume 8.7 fL (7.0-11.0); Mono # (Auto) 0.4 th/mm3 (0.0-0.9); Mono % (Auto) 5.6 % (0.0-8.0); Neut # (Auto) 6.8 th/mm3 (1.8-7.7); Neut % (Auto) 86.4 % (16.0-70.0); Platelet Count 152 th/mm3 (150-450); White Blood Count 7.8 th/mm3 (4.0-11.0)
[2018-06-14 04:15] LABS: Calcium 8.5 mg/dL (8.5-10.1); Carbon Dioxide 30.1 meq/L (21.0-32.0); Magnesium 1.8 mg/dL (1.5-2.5); Potassium 4.4 meq/L (3.5-5.1)
[2018-06-14 04:30] LABS: Phosphorus 3.4 mg/dL (2.5-4.9)
[2018-06-14] MEDS: Insulin NovoLIN Regular Correctional Sugar Inj SQ SCH ×3 (05:14→17:40)
[2018-06-14] MEDS: Oral Hygiene Kit OROPHARYNG SCH ×2 (05:14→17:39)
--- NOTE | 2018-06-14 05:29 | XR ---
EXAM DATE: 06/14/2018 5:18 AM EDT AGE/SEX: 67 years / Female INDICATIONS: Shortness of breath. CLINICAL DATA: This is the patient's subsequent encounter. Patient reports that signs and symptoms h ave been present for 1 week and indicates a pain score of Nonresponsive. MEDICAL/SURGICAL HISTORY: . Hypertension. Depression. Diabetes. Hypertriglyceridemia. None. [place] [facility]. . FINDINGS: A single AP view of the chest demonstrates persistent left basilar consolidation/effusion with some i mproving aeration above the right hemidiaphragm. Life-support tubes are stable in position including endotracheal, nasogastric tubes and right IJ central venous catheter. Heart size is borderline promin ent. CONCLUSION: 1. Persistent left basilar consolidation/effusion. 2. Improving aeration in the right base. Electronically signed by: Kristofer Altamirano MD 06/14/2018 5:28 AM EDT
[2018-06-14] MEDS: Midazolam 50 MG/50 ML Inj 50 MG/50 ML BAG IV.CONT PRN ×3 (05:55→19:12)
[2018-06-14] MEDS: Mupirocin 2% Nasal Oint Topical Syringe EACH NARE SCH ×2 (08:59→21:18)
[2018-06-14] MEDS: Insulin Detemir Inj 1,000 UNIT/10 ML Vial SQ SCH ×2 (08:59→21:18)
[2018-06-14] MEDS: Chlorhexidine 0.12% Oral Kit 15 ML UDC OROPHARYNG SCH ×2 (08:59→21:18)
[2018-06-14] MEDS: MethylPREDNISolone Sod Succinate Inj 40 MG/ML Vial IV.PUSH SCH (09:00)
[2018-06-14] MEDS: Collagenase Oint 30 GM Tube TOPICAL SCH (09:00)
[2018-06-14] MEDS: Senna/Docusate Sodium 8.6/50 MG Tablet PO SCH ×2 (09:00→21:18)
[2018-06-14] MEDS: Digoxin Inj 500 MCG/2 ML Ampul IV.PUSH SCH (09:00)
--- NOTE | 2018-06-14 09:04 | P.CONGI ---
History of Present Illness Consult date: 06/14/18 Consult reason: PEG Chief complaint: Acute Kidney Injury, UTI History of Present Illness: This is a 67 yo morbidly obese female who is currently admitted to [facility] and has been unable to be weaned from the ventilator, therefore surgery has been consulted for tracheostomy placement and our service has been consulted for PEG placement. Pt currently receiving nutrition through OG tube, Vital high protein with goal rate of 65 mL/hr. Of note, pt is also on heparin gtt for a- fib. <Geovanna Goldberg - Last Filed: 06/14/18 08:53> Review of Systems unobtainable due to endotracheal tube <Geovanna Goldberg - Last Filed: 06/14/18 08:53> PMFSH - History History Provided By: Medical Record - Medical / Surgical Hx Neg / Unobtainable Medical Problems Denied: Unable to Obtain - Medical History Medical History: Medical History (Last Reviewed 06/13/18 @ 08:20 by Jono Washburn, MARIELLA) Depression Diabetes Hypertension Hypertriglyceridemia Morbid obesity - Family History Family History: Family History (Last Reviewed 06/08/18 @ 07:58 by Adrian Card) Grandparent Colon cancer - Tobacco History Tobacco Use In Past 30 Days: Yes Smoking Status: Heavy tobacco smoker Tobacco Type: Cigarettes Packs Per Day: 2 Years Smoked: 40 - Alcohol History How Often Do You Have a Drink Containing Alcohol: Monthly or less - Substance Use History Substance History: No History of Abuse - Travel History Recent Travel in the [place] Within the Last 8 Weeks: No Recent Travel Out of the Country Within the Last 8 Weeks: No - Immunization History Tetanus Immunization: Unsure Hx Influenza Vaccine This Season: No <Geovanna Goldberg - Last Filed: 06/14/18 08:53> - Medical History Medical History: Medical History (Last Reviewed 06/13/18 @ 08:20 by Jono Washburn, MARIELLA) Depression Diabetes Hypertension Hypertriglyceridemia Morbid obesity - Family History Family History: Family History (Last Reviewed 06/08/18 @ 07:58 by Adrian Card) Grandparent Colon cancer <Nicole Patel - Last Filed: 06/14/18 14:32> Medications and Allergies Active Medications: Active Medications Acetaminophen (Tylenol Liq) 650 mg PO Q6H PRN PRN Reason: FEVER Al Hydroxide/Mg Hydroxide (Milk Of Magnesia Liq) 30 ml PO Q12H PRN PRN Reason: Mild Constipation Albuterol (Duoneb Neb ([facility])) 1 ampul NEB Q4HR NEB [facility] Last Admin: 06/14/18 08:46 Dose: 1 ampul Albuterol (Albuterol Neb (Prn)) 2.5 mg NEB Q2HR NEB PRN PRN Reason: DYSPNEA Last Admin: 06/11/18 20:52 Dose: 2.5 mg Artificial Tears (Genteal Severe Dry Eye Relief 0.3% Opth Gel) 1 drops EACH EYE HS [facility] Last Admin: 06/13/18 20:34 Dose: 1 drops Bisacodyl (Dulcolax Supp) 10 mg RECTAL DAILY PRN PRN Reason: SEVERE CONSITIPATION Chlorhexidine Gluconate (Peridex 0.12% Oral Kit) 15 ml OROPHARYNG BID@0800, 2000 [facility] Last Admin: 06/13/18 20:34 Dose: 15 ml Citalopram Hydrobromide (Celexa) 20 mg PO DAILY [facility] Last Admin: 05/31/18 09:17 Dose: Not Given Collagenase (Santyl Oint) 1 applicatio TOPICAL DAILY [facility] Last Admin: 06/13/18 08:25 Dose: 1 applicatio Dextrose (D50w Vial) 50 ml IV.PUSH UNSCH PRN PRN Reason: PER HYPOGLYCEMIA PROTOCOL Last Admin: 06/07/18 11:25 Dose: 50 ml Digoxin (Lanoxin Inj) 250 mcg IV.PUSH DAILY [facility] Last Admin: 06/13/18 08:23 Dose: 250 mcg Glucagon (Glucagon Inj) 1 mg OTHER PRN PRN PRN Reason: for Hypoglycemia Protocol Sodium Chloride (1/2 Normal Saline Inj) 1,000 mls @ 20 mls/hr IV.CONT .Q24H [facility] Last Admin: 06/13/18 18:53 Dose: 20 mls/hr Fentanyl (Fentanyl 10 Mcg/Ml Premix Drip) 2,500 mcg in 250 mls @ 5 mls/hr IV.SIG TITRATE PRN; Protocol PRN Reason: Per Protocol Last Titration: 06/14/18 05:57 Dose: 100 mcg/hr, 10 mls/hr Midazolam HCl (Versed Inj) 50 mg in 50 mls @ 2 mls/hr IV.CONT TITRATE PRN; Protocol PRN Reason: Per Protocol Last Admin: 06/14/18 05:55 Dose: 8 mg/hr, 8 mls/hr Cefepime HCl 2,000 mg/ Sodium (Chloride) 100 mls @ 200 mls/hr IV.SIG Q12H [facility] Stop: 06/14/18 23:00 Last Infusion: 06/14/18 04:14 Dose: Infused Magnesium Sulfate Inj 4 gm/ (Sodium Chloride) 100 mls @ 50 mls/hr IV.SIG UNSCH PRN PRN Reason: For Magnesium 0.9 - 1.1 mg/dL Potassium Chloride (Kcl 40 Meq Premix Inj) 40 meq in 100 mls @ 25 mls/hr IV.SIG Q2H PRN PRN Reason: For Potassium 2.8 - 3.2 mEq/L Potassium Chloride (Kcl 20 Meq Premix Inj) 20 meq in 100 mls @ 50 mls/hr IV.SIG Q2H PRN PRN Reason: For Potassium 3.3 - 3.5 mEq/L Potassium Chloride (Kcl 40 Meq Premix Inj) 40 meq in 100 mls @ 25 mls/hr IV.SIG UNSCH PRN PRN Reason: For Potassium 3.3 - 3.5 mEq/L Potassium Chloride (Kcl 20 Meq Premix Inj) 20 meq in 100 mls @ 50 mls/hr IV.SIG Q2H PRN PRN Reason: For Potassium 2.8 - 3.2 mEq/L Sodium Phosphate 30 mmol/ (Sodium Chloride) 260 mls @ 42 mls/hr IV.SIG UNSCH PRN PRN Reason: For Phosphorus < 2.5 mg/dL Magnesium Sulfate Inj 2 gm/ (Sodium Chloride) 100 mls @ 50 mls/hr IV.SIG UNSCH PRN PRN Reason: For Magnesium 1.2 - 1.6 mg/dL Potassium Phosphate 30 mmol/ (Sodium Chloride) 260 mls @ 42 mls/hr IV.SIG UNSCH PRN PRN Reason: SEE LABEL COMMENTS Dexmedetomidine HCl 1,000 mcg/ (Sodium Chloride) 250 mls @ 8.01 mls/hr IV.CONT TITRATE PRN; Protocol PRN Reason: Per Protocol Last Admin: 06/12/18 08:54 Dose: 0.2 mcg/kg/hr, 8.01 mls/hr Heparin Sodium/Dextrose (Heparin/D5w 25,000 U/250 Ml) 25,000 unit in 250 mls @ 9 mls/hr IV.CONT TITRATE PRN; Protocol PRN Reason: Per Protocol Last Titration: 06/14/18 04:14 Dose: 1,600 units/hr, 16 mls/hr Insulin Detemir (Levemir Inj) 32 unit SQ BID [facility] Last Admin: 06/13/18 20:34 Dose: 32 unit Insulin Human Regular (Novolin R Supplemental Scale) 0 units SQ Q6HR [facility]; Protocol Last Admin: 06/14/18 05:14 Dose: 7 units Lactulose (Lactulose Liq) 30 ml PO DAILY PRN PRN Reason: SEVERE CONSITIPATION Lansoprazole (Prevacid Solutab) 30 mg NG/OG DAILY [facility] Last Admin: 06/13/18 08:24 Dose: 30 mg Lisinopril (Prinivil) 20 mg PO DAILY [facility] Last Admin: 06/01/18 08:29 Dose: 20 mg Lorazepam (Ativan Inj) 1 mg IV.PUSH Q2H PRN PRN Reason: SEIZURE ACTIVITY Magnesium Oxide (Mag-Ox) 800 mg PO UNSCH PRN PRN Reason: For Magnesium 1.2 - 1.6 mg/dL Methylprednisolone Sodium Succinate (Solumedrol Inj) 30 mg IV.PUSH DAILY [facility] Last Admin: 06/13/18 08:24 Dose: 30 mg Mupirocin (Bactroban 2% Nasal Oint) 1 applicatio EACH NARE BID [facility] Last Admin: 06/13/18 20:34 Dose: 1 applicatio Ondansetron HCl (Zofran Inj) 4 mg IV.PUSH Q6H PRN PRN Reason: NAUSEA OR VOMITING Potassium Bicarb/Potassium Chloride (K-Lyte Cl Eff) 50 meq PO UNSCH PRN PRN Reason: For Potassium 3.3 - 3.5 mEq/L Potassium Phosphate (K-Phos Original) 2,000 mg PO Q4H PRN PRN Reason: Phosphorus Less Than 2.5 mg/dL Potassium Phosphate (K-Phos Original) 2,000 mg PO UNSCH PRN PRN Reason: SEE LABEL COMMENTS Pravastatin Sodium (Pravachol) 80 mg PO QPM [facility] Last Admin: 06/13/18 18:53 Dose: 80 mg Senna/Docusate Sodium (Maira-Colace) 1 tab PO BID [facility] Last Admin: 06/13/18 20:34 Dose: 1 tab Sennosides (Senokot) 17.2 mg PO Q12H PRN PRN Reason: Moderate Constipation Sterile Water (Free Water) 200 ml NG/OG Q6HR [facility] Last Admin: 06/14/18 05:14 Dose: 200 ml <[email or web address] - Last Filed: 06/14/18 08:53> Active Medications: Active Medications Acetaminophen (Tylenol Liq) 650 mg PO Q6H PRN PRN Reason: FEVER Al Hydroxide/Mg Hydroxide (Milk Of Magnesia Liq) 30 ml PO Q12H PRN PRN Reason: Mild Constipation Albuterol (Duoneb Neb ([facility])) 1 ampul NEB Q4HR NEB [facility] Last Admin: 06/14/18 12:08 Dose: 1 ampul Albuterol (Albuterol Neb (Prn)) 2.5 mg NEB Q2HR NEB PRN PRN Reason: DYSPNEA Last Admin: 06/11/18 20:52 Dose: 2.5 mg Artificial Tears (Genteal Severe Dry Eye Relief 0.3% Opth Gel) 1 drops EACH EYE HS [facility] Last Admin: 06/13/18 20:34 Dose: 1 drops Bisacodyl (Dulcolax Supp) 10 mg RECTAL DAILY PRN PRN Reason: SEVERE CONSITIPATION Chlorhexidine Gluconate (Peridex 0.12% Oral Kit) 15 ml OROPHARYNG BID@0800, 2000 [facility] Last Admin: 06/14/18 08:59 Dose: 15 ml Citalopram Hydrobromide (Celexa) 20 mg PO DAILY [facility] Last Admin: 05/31/18 09:17 Dose: Not Given Collagenase (Santyl Oint) 1 applicatio TOPICAL DAILY [facility] Last Admin: 06/14/18 09:00 Dose: 1 applicatio Dextrose (D50w Vial) 50 ml IV.PUSH UNSCH PRN PRN Reason: PER HYPOGLYCEMIA PROTOCOL Last Admin: 06/07/18 11:25 Dose: 50 ml Digoxin (Lanoxin Inj) 250 mcg IV.PUSH DAILY [facility] Last Admin: 06/14/18 09:00 Dose: 250 mcg Glucagon (Glucagon Inj) 1 mg OTHER PRN PRN PRN Reason: for Hypoglycemia Protocol Sodium Chloride (1/2 Normal Saline Inj) 1,000 mls @ 20 mls/hr IV.CONT .Q24H [facility] Last Admin: 06/13/18 18:53 Dose: 20 mls/hr Fentanyl (Fentanyl 10 Mcg/Ml Premix Drip) 2,500 mcg in 250 mls @ 5 mls/hr IV.SIG TITRATE PRN; Protocol PRN Reason: Per Protocol Last Titration: 06/14/18 05:57 Dose: 100 mcg/hr, 10 mls/hr Midazolam HCl (Versed Inj) 50 mg in 50 mls @ 2 mls/hr IV.CONT TITRATE PRN; Protocol PRN Reason: Per Protocol Last Admin: 06/14/18 12:50 Dose: 8 mg/hr, 8 mls/hr Cefepime HCl 2,000 mg/ Sodium (Chloride) 100 mls @ 200 mls/hr IV.SIG Q12H [facility] Stop: 06/14/18 23:00 Last Infusion: 06/14/18 04:14 Dose: Infused Magnesium Sulfate Inj 4 gm/ (Sodium Chloride) 100 mls @ 50 mls/hr IV.SIG UNSCH PRN PRN Reason: For Magnesium 0.9 - 1.1 mg/dL Potassium Chloride (Kcl 40 Meq Premix Inj) 40 meq in 100 mls @ 25 mls/hr IV.SIG Q2H PRN PRN Reason: For Potassium 2.8 - 3.2 mEq/L Potassium Chloride (Kcl 20 Meq Premix Inj) 20 meq in 100 mls @ 50 mls/hr IV.SIG Q2H PRN PRN Reason: For Potassium 3.3 - 3.5 mEq/L Potassium Chloride (Kcl 40 Meq Premix Inj) 40 meq in 100 mls @ 25 mls/hr IV.SIG UNSCH PRN PRN Reason: For Potassium 3.3 - 3.5 mEq/L Potassium Chloride (Kcl 20 Meq Premix Inj) 20 meq in 100 mls @ 50 mls/hr IV.SIG Q2H PRN PRN Reason: For Potassium 2.8 - 3.2 mEq/L Sodium Phosphate 30 mmol/ (Sodium Chloride) 260 mls @ 42 mls/hr IV.SIG UNSCH PRN PRN Reason: For Phosphorus < 2.5 mg/dL Magnesium Sulfate Inj 2 gm/ (Sodium Chloride) 100 mls @ 50 mls/hr IV.SIG UNSCH PRN PRN Reason: For Magnesium 1.2 - 1.6 mg/dL Potassium Phosphate 30 mmol/ (Sodium Chloride) 260 mls @ 42 mls/hr IV.SIG UNSCH PRN PRN Reason: SEE LABEL COMMENTS Dexmedetomidine HCl 1,000 mcg/ (Sodium Chloride) 250 mls @ 8.01 mls/hr IV.CONT TITRATE PRN; Protocol PRN Reason: Per Protocol Last Admin: 06/12/18 08:54 Dose: 0.2 mcg/kg/hr, 8.01 mls/hr Heparin Sodium/Dextrose (Heparin/D5w 25,000 U/250 Ml) 25,000 unit in 250 mls @ 9 mls/hr IV.CONT TITRATE PRN; Protocol PRN Reason: Per Protocol Last Titration: 06/14/18 04:14 Dose: 1,600 units/hr, 16 mls/hr Insulin Detemir (Levemir Inj) 32 unit SQ BID [facility] Last Admin: 06/14/18 08:59 Dose: 32 unit Insulin Human Regular (Novolin R Supplemental Scale) 0 units SQ Q6HR [facility]; Protocol Last Admin: 06/14/18 05:14 Dose: 7 units Lactulose (Lactulose Liq) 30 ml PO DAILY PRN PRN Reason: SEVERE CONSITIPATION Lansoprazole (Prevacid Solutab) 30 mg NG/OG DAILY [facility] Last Admin: 06/14/18 09:00 Dose: 30 mg Lisinopril (Prinivil) 20 mg PO DAILY [facility] Last Admin: 06/01/18 08:29 Dose: 20 mg Lorazepam (Ativan Inj) 1 mg IV.PUSH Q2H PRN PRN Reason: SEIZURE ACTIVITY Magnesium Oxide (Mag-Ox) 800 mg PO UNSCH PRN PRN Reason: For Magnesium 1.2 - 1.6 mg/dL Methylprednisolone Sodium Succinate (Solumedrol Inj) 30 mg IV.PUSH DAILY [facility] Last Admin: 06/14/18 09:00 Dose: 30 mg Mupirocin (Bactroban 2% Nasal Oint) 1 applicatio EACH NARE BID [facility] Last Admin: 06/14/18 08:59 Dose: 1 applicatio Ondansetron HCl (Zofran Inj) 4 mg IV.PUSH Q6H PRN PRN Reason: NAUSEA OR VOMITING Potassium Bicarb/Potassium Chloride (K-Lyte Cl Eff) 50 meq PO UNSCH PRN PRN Reason: For Potassium 3.3 - 3.5 mEq/L Potassium Phosphate (K-Phos Original) 2,000 mg PO Q4H PRN PRN Reason: Phosphorus Less Than 2.5 mg/dL Potassium Phosphate (K-Phos Original) 2,000 mg PO UNSCH PRN PRN Reason: SEE LABEL COMMENTS Pravastatin Sodium (Pravachol) 80 mg PO QPM [facility] Last Admin: 06/13/18 18:53 Dose: 80 mg Senna/Docusate Sodium (Maira-Colace) 1 tab PO BID [facility] Last Admin: 06/14/18 09:00 Dose: Not Given Sennosides (Senokot) 17.2 mg PO Q12H PRN PRN Reason: Moderate Constipation Sterile Water (Free Water) 200 ml NG/OG Q6HR [facility] Last Admin: 06/14/18 05:14 Dose: 200 ml <Nicole Patel - Last Filed: 06/14/18 14:32> Allergies Allergy/AdvReac Type Severity Reaction Status Date / Time No Known Allergies Allergy Verified 05/30/18 22:08 Home Medications Medication Instructions Recorded Confirmed Type citalopram 20 mg PO DAILY 05/30/18 05/30/18 History glipizide 5 mg PO BID 05/30/18 05/30/18 History lisinopril-hydrochlorothiazide 1 tab PO DAILY 05/30/18 05/31/18 History lorazepam 0.5 mg PO DAILY 05/30/18 05/30/18 History metformin 1,000 mg PO BID 05/30/18 05/30/18 History simvastatin 40 mg PO QPM 05/30/18 05/30/18 History Exam Vital signs: Vital Signs 06/13/18 09:00 06/13/18 10:00 06/13/18 11:00 Temperature Pulse Rate 71 68 76 Respiratory Rate 20 21 22 Blood Pressure 117/65 117/59 L 127/64 Pulse Oximetry 95 94 L 91 L 06/13/18 11:24 06/13/18 12:00 06/13/18 12:01 Temperature 99.9 F H Pulse Rate 79 80 Respiratory Rate 22 24 25 H Blood Pressure 119/57 L 126/61 Pulse Oximetry 91 L 89 L 90 L 06/13/18 13:00 06/13/18 14:00 06/13/18 15:00 Temperature Pulse Rate 85 86 52 L Respiratory Rate 16 24 16 Blood Pressure 132/66 131/89 Pulse Oximetry 92 L 95 93 L 06/13/18 15:01 06/13/18 15:40 06/13/18 16:00 Temperature 98.9 F Pulse Rate 50 L 52 L 49 L Respiratory Rate 16 16 16 Blood Pressure 106/56 L 112/53 L 125/60 Pulse Oximetry 93 L 93 L 95 06/13/18 16:01 06/13/18 16:19 06/13/18 16:31 Temperature Pulse Rate 52 L 46 L Respiratory Rate 16 17 16 Blood Pressure 110/53 L 116/56 L Pulse Oximetry 95 97 96 06/13/18 17:00 06/13/18 17:01 06/13/18 17:31 Temperature Pulse Rate 55 L 46 L 55 L Respiratory Rate 16 16 16 Blood Pressure 117/59 L 116/55 L Pulse Oximetry 94 L 94 L 93 L 06/13/18 18:00 06/13/18 18:01 06/13/18 18:31 Temperature Pulse Rate 55 L 54 L 68 Respiratory Rate 16 16 16 Blood Pressure 113/55 L 124/72 Pulse Oximetry 94 L 94 L 98 06/13/18 19:00 06/13/18 19:01 06/13/18 19:31 Temperature Pulse Rate 56 L 54 L 62 Respiratory Rate 16 16 17 Blood Pressure 130/58 L 128/59 L Pulse Oximetry 96 96 97 06/13/18 20:00 06/13/18 20:01 06/13/18 20:30 Temperature 98.8 F Pulse Rate 54 L 53 L 85 Respiratory Rate 16 16 18 Blood Pressure 123/59 L 125/83 Pulse Oximetry 93 L 94 L 94 L 06/13/18 21:00 06/13/18 21:01 06/13/18 21:30 Temperature Pulse Rate 50 L 53 L 88 Respiratory Rate 16 16 21 Blood Pressure 105/53 L 130/72 Pulse Oximetry 93 L 92 L 96 06/13/18 22:00 06/13/18 22:01 06/13/18 22:18 Temperature Pulse Rate 54 L 47 L Respiratory Rate 16 16 16 Blood Pressure 117/58 L Pulse Oximetry 94 L 94 L 97 06/13/18 22:31 06/13/18 23:00 06/13/18 23:01 Temperature Pulse Rate 56 L 79 71 Respiratory Rate 16 16 16 Blood Pressure 127/60 142/63 H Pulse Oximetry 97 95 96 06/13/18 23:35 06/13/18 23:41 06/14/18 00:00 Temperature Pulse Rate 86 61 56 L Respiratory Rate 17 16 16 Blood Pressure 146/67 H Pulse Oximetry 98 96 06/14/18 00:01 06/14/18 00:31 06/14/18 01:00 Temperature 98.3 F Pulse Rate 54 L 90 62 Respiratory Rate 16 22 16 Blood Pressure 139/61 162/69 H 161/103 H Pulse Oximetry 96 98 95 06/14/18 01:45 06/14/18 02:00 06/14/18 02:01 Temperature Pulse Rate 83 56 L 53 L Respiratory Rate 19 16 16 Blood Pressure 130/63 128/60 Pulse Oximetry 94 L 96 95 06/14/18 02:31 06/14/18 03:00 06/14/18 03:31 Temperature Pulse Rate 56 L 60 62 Respiratory Rate 16 16 16 Blood Pressure 126/56 L 130/75 130/59 L Pulse Oximetry 98 96 96 06/14/18 03:36 06/14/18 04:00 06/14/18 04:01 Temperature 98.3 F Pulse Rate 65 79 82 Respiratory Rate 16 26 H 23 Blood Pressure 135/62 Pulse Oximetry 99 99 06/14/18 04:27 06/14/18 06:00 06/14/18 08:47 Temperature Pulse Rate 52 L 55 L Respiratory Rate 16 11 L Blood Pressure Pulse Oximetry 98 98 Intake & Output 06/13/18 06/14/18 06/14/18 18:59 06:59 18:59 Intake Total 2122 / 2122 1656 / 1656 Output Total 1200 / 1200 1700 / 1700 Balance 922 / 922 -44 / -44 Weight 163 kg Intake: IV 1350 / 1350 550 / 550 Heparin/D5W 25,000 U/250 mL 25, 250 / 250 000 unit In 250 ml @ Per Protocol 9 mls/hr IV.CONT TITRATE PRN Rx#:[id number] Versed Inj 50 mg In 50 ml @ 2 100 / 100 100 / 100 MG/HR 2 mls/hr IV.CONT TITRATE PRN Rx#:[id number] 1/2 Normal Saline Inj 1,000 ML 1000 / 1000 @ 20 mls/hr IV.CONT .Q24H [facility] Rx#:[id number] Maxipime Inj 2,000 MG In NS Inj 200 / 200 100 ML @ 200 mls/hr IV.SIG Q12H [facility] Rx#:[id number] fentaNYL 10 mcg/mL Premix Drip 250 / 250 2,500 mcg In 250 ml @ 50 MCG/HR 5 mls/hr IV.SIG TITRATE PRN Rx #:[id number] Tube Feeding 772 / 772 706 / 706 Water Bolus Amount 400 / 400 Output: Urine Amount (Catheter) 1200 / 1200 1700 / 1700 Indwelling Urethral Catheter 1200 / 1200 1700 / 1700 Other: Date of Last Bowel Movement 06/12/18 06/12/18 # Bowel Movements 0 - Constitutional no acute distress - Routine HEENT Exam Head: Present: normocephalic, atraumatic - Routine Respiratory Exam Present: patient mechanically ventilated - Routine Abdominal Exam Present: soft, normoactive bowel sounds Comments: morbidly obese - Routine Skin Exam Present: dry, warm - Routine Neurological Exam opens eyes spontaneously <Geovanna Goldberg - Last Filed: 06/14/18 08:53> Vital signs: Vital Signs 06/13/18 15:00 06/13/18 15:01 06/13/18 15:40 Temperature Pulse Rate 52 L 50 L 52 L Respiratory Rate 16 16 16 Blood Pressure 106/56 L 112/53 L Pulse Oximetry 93 L 93 L 93 L 06/13/18 16:00 06/13/18 16:01 06/13/18 16:19 Temperature 98.9 F Pulse Rate 49 L 52 L Respiratory Rate 16 16 17 Blood Pressure 125/60 110/53 L Pulse Oximetry 95 95 97 06/13/18 16:31 06/13/18 17:00 06/13/18 17:01 Temperature Pulse Rate 46 L 55 L 46 L Respiratory Rate 16 16 16 Blood Pressure 116/56 L 117/59 L Pulse Oximetry 96 94 L 94 L 06/13/18 17:31 06/13/18 18:00 06/13/18 18:01 Temperature Pulse Rate 55 L 55 L 54 L Respiratory Rate 16 16 16 Blood Pressure 116/55 L 113/55 L Pulse Oximetry 93 L 94 L 94 L 06/13/18 18:31 06/13/18 19:00 06/13/18 19:01 Temperature Pulse Rate 68 56 L 54 L Respiratory Rate 16 16 16 Blood Pressure 124/72 130/58 L Pulse Oximetry 98 96 96 06/13/18 19:31 06/13/18 20:00 06/13/18 20:01 Temperature 98.8 F Pulse Rate 62 54 L 53 L Respiratory Rate 17 16 16 Blood Pressure 128/59 L 123/59 L Pulse Oximetry 97 93 L 94 L 06/13/18 20:30 06/13/18 21:00 06/13/18 21:01 Temperature Pulse Rate 85 50 L 53 L Respiratory Rate 18 16 16 Blood Pressure 125/83 105/53 L Pulse Oximetry 94 L 93 L 92 L 06/13/18 21:30 06/13/18 22:00 06/13/18 22:01 Temperature Pulse Rate 88 54 L 47 L Respiratory Rate 21 16 16 Blood Pressure 130/72 117/58 L Pulse Oximetry 96 94 L 94 L 06/13/18 22:18 06/13/18 22:31 06/13/18 23:00 Temperature Pulse Rate 56 L 79 Respiratory Rate 16 16 16 Blood Pressure 127/60 Pulse Oximetry 97 97 95 06/13/18 23:01 06/13/18 23:35 06/13/18 23:41 Temperature Pulse Rate 71 86 61 Respiratory Rate 16 17 16 Blood Pressure 142/63 H 146/67 H Pulse Oximetry 96 98 06/14/18 00:00 06/14/18 00:01 06/14/18 00:31 Temperature 98.3 F Pulse Rate 56 L 54 L 90 Respiratory Rate 16 16 22 Blood Pressure 139/61 162/69 H Pulse Oximetry 96 96 98 06/14/18 01:00 06/14/18 01:45 06/14/18 02:00 Temperature Pulse Rate 62 83 56 L Respiratory Rate 16 19 16 Blood Pressure 161/103 H 130/63 Pulse Oximetry 95 94 L 96 06/14/18 02:01 06/14/18 02:31 06/14/18 03:00 Temperature Pulse Rate 53 L 56 L 60 Respiratory Rate 16 16 16 Blood Pressure 128/60 126/56 L 130/75 Pulse Oximetry 95 98 96 06/14/18 03:31 06/14/18 03:36 06/14/18 04:00 Temperature Pulse Rate 62 65 79 Respiratory Rate 16 16 26 H Blood Pressure 130/59 L Pulse Oximetry 96 99 06/14/18 04:01 06/14/18 04:27 06/14/18 06:00 Temperature 98.3 F Pulse Rate 82 52 L Respiratory Rate 23 16 Blood Pressure 135/62 Pulse Oximetry 99 98 06/14/18 08:47 06/14/18 12:09 Temperature Pulse Rate 55 L 54 L Respiratory Rate 11 L 17 Blood Pressure Pulse Oximetry 98 93 L Intake & Output 06/13/18 06/14/18 06/14/18 18:59 06:59 18:59 Intake Total 2122 / 2122 1656 / 1656 50 / 50 Output Total 1200 / 1200 1700 / 1700 Balance 922 / 922 -44 / -44 50 / 50 Weight 163 kg Intake: IV 1350 / 1350 550 / 550 50 / 50 Heparin/D5W 25,000 U/250 mL 25, 250 / 250 000 unit In 250 ml @ Per Protocol 9 mls/hr IV.CONT TITRATE PRN Rx#:[id number] Versed Inj 50 mg In 50 ml @ 2 100 / 100 100 / 100 50 / 50 MG/HR 2 mls/hr IV.CONT TITRATE PRN Rx#:[id number] 1/2 Normal Saline Inj 1,000 ML 1000 / 1000 @ 20 mls/hr IV.CONT .Q24H [facility] Rx#:[id number] Maxipime Inj 2,000 MG In NS Inj 200 / 200 100 ML @ 200 mls/hr IV.SIG Q12H [facility] Rx#:[id number] fentaNYL 10 mcg/mL Premix Drip 250 / 250 2,500 mcg In 250 ml @ 50 MCG/HR 5 mls/hr IV.SIG TITRATE PRN Rx #:[id number] Tube Feeding 772 / 772 706 / 706 Water Bolus Amount 400 / 400 Output: Urine Amount (Catheter) 1200 / 1200 1700 / 1700 Indwelling Urethral Catheter 1200 / 1200 1700 / 1700 Other: Date of Last Bowel Movement 06/12/18 06/12/18 # Bowel Movements 0 <Nicole Patel - Last Filed: 06/14/18 14:32> Results - Labs CBC & Chem 7: 06/14/18 03:28 06/14/18 03:28 Labs: Laboratory Results - last 24 hr 06/13/18 06/13/18 06/14/18 18:49 23:06 03:28 WBC RBC Hgb Hct MCV MCH MCHC RDW Plt Count MPV Neut % (Auto) Lymph % (Auto) [place] % (Auto) Eos % (Auto) Baso % (Auto) Neut # (Auto) Lymph # (Auto) [place] # (Auto) Eos # (Auto) Baso # (Auto) WBC Differential Differential Comment APTT 38.0 H Sodium Potassium Chloride Carbon Dioxide Anion Gap BUN Creatinine Estimated GFR POC Glucose 297 H 352 H Random Glucose Calcium Phosphorus Magnesium Digoxin 06/14/18 06/14/18 06/14/18 03:28 03:28 05:13 WBC 7.8 RBC 4.60 Hgb 12.5 Hct 39.9 MCV 86.8 MCH 27.1 MCHC 31.2 L RDW 17.0 Plt Count 152 MPV 8.7 Neut % (Auto) 86.4 H Lymph % (Auto) 7.2 L [place] % (Auto) 5.6 Eos % (Auto) 0.4 Baso % (Auto) 0.4 Neut # (Auto) 6.8 Lymph # (Auto) 0.6 L [place] # (Auto) 0.4 Eos # (Auto) 0.0 Baso # (Auto) 0.0 WBC Differential . Differential Comment Auto diff final APTT Sodium 138 Potassium 4.4 Chloride 103 Carbon Dioxide 30.1 Anion Gap 5 BUN 25 H Creatinine 0.76 Estimated GFR 76 L POC Glucose 253 H Random Glucose 225 H Calcium 8.5 Phosphorus 3.4 Magnesium 1.8 Digoxin 1.0 - Imaging Impressions Chest X-Ray 06/14/18 06:00 CONCLUSION: 1. Persistent left basilar consolidation/effusion. 2. Improving aeration in the right base. <Geovanna Goldberg - Last Filed: 06/14/18 08:53> - Labs CBC & Chem 7: 06/14/18 03:28 06/14/18 03:28 Labs: Laboratory Results - last 24 hr 06/13/18 06/13/18 06/14/18 18:49 23:06 03:28 WBC RBC Hgb Hct MCV MCH MCHC RDW Plt Count MPV Neut % (Auto) Lymph % (Auto) [place] % (Auto) Eos % (Auto) Baso % (Auto) Neut # (Auto) Lymph # (Auto) [place] # (Auto) Eos # (Auto) Baso # (Auto) WBC Differential Differential Comment APTT 38.0 H Sodium Potassium Chloride Carbon Dioxide Anion Gap BUN Creatinine Estimated GFR POC Glucose 297 H 352 H Random Glucose Calcium Phosphorus Magnesium Digoxin 06/14/18 06/14/18 06/14/18 03:28 03:28 05:13 WBC 7.8 RBC 4.60 Hgb 12.5 Hct 39.9 MCV 86.8 MCH 27.1 MCHC 31.2 L RDW 17.0 Plt Count 152 MPV 8.7 Neut % (Auto) 86.4 H Lymph % (Auto) 7.2 L [place] % (Auto) 5.6 Eos % (Auto) 0.4 Baso % (Auto) 0.4 Neut # (Auto) 6.8 Lymph # (Auto) 0.6 L [place] # (Auto) 0.4 Eos # (Auto) 0.0 Baso # (Auto) 0.0 WBC Differential . Differential Comment Auto diff final APTT Sodium 138 Potassium 4.4 Chloride 103 Carbon Dioxide 30.1 Anion Gap 5 BUN 25 H Creatinine 0.76 Estimated GFR 76 L POC Glucose 253 H Random Glucose 225 H Calcium 8.5 Phosphorus 3.4 Magnesium 1.8 Digoxin 1.0 06/14/18 10:30 WBC RBC Hgb Hct MCV MCH MCHC RDW Plt Count MPV Neut % (Auto) Lymph % (Auto) [place] % (Auto) Eos % (Auto) Baso % (Auto) Neut # (Auto) Lymph # (Auto) [place] # (Auto) Eos # (Auto) Baso # (Auto) WBC Differential Differential Comment APTT 44.8 H Sodium Potassium Chloride Carbon Dioxide Anion Gap BUN Creatinine Estimated GFR POC Glucose Random Glucose Calcium Phosphorus Magnesium Digoxin - Imaging Impressions Chest X-Ray 06/14/18 06:00 CONCLUSION: 1. Persistent left basilar consolidation/effusion. 2. Improving aeration in the right base. <Nicole Patel - Last Filed: 06/14/18 14:32> Assessment and Plan - Plan Assessment: - PEG consult- This is a 67 yo morbidly obese female who is currently admitted to [facility] and has been unable to be weaned from the ventilator, therefore surgery has been consulted for tracheostomy placement and our service has been consulted for PEG placement. Pt currently receiving nutrition through OG tube, Vital high protein with goal rate of 65 mL/hr. Of note, pt is also on heparin gtt for a-fib. Plan: EGD with PEG tomorrow Obtain consent Hold TF after MN Stop Heparin gtt at 4 am Pt on Cefepime for abx coverage Appreciate dietary recommendations- Vital high protein @ 65 mL/hr x 24 hours Further recommendations to follow Pt has been seen and examined by myself and Dr. Patel and this note is written on his behalf <Geovanna Goldberg - Last Filed: 06/14/18 08:53> - Attending Attestation Shunt was seen and examined, agree with above note, will do PEG tube placement tomorrow, will hold heparin, will obtain consent <Nicole Patel - Last Filed: 06/14/18 14:32>
--- NOTE | 2018-06-14 11:01 | ECG ---
Date Performed: 06/13/2018 Time Performed: 15:46:14 PTAGE: 67 years EKG: Sinus arrhythmia. Extensive ST-T changes may be due to myocardial ischemia Low QRS voltages in precordial leads Abnormal ECG PREVIOUS TRACING : 06/10/2018 15.16 DOCTOR: Ryan Rousseau Interpretating Date/Time 06/14/2018 11:00:31
--- NOTE | 2018-06-14 12:16 | P.CONGS ---
HPI Gen Surgery Consult Note Consult date: 06/14/18 Reason for consult: other (Tracheostomy placement) Requesting physician: Segun Rouse Narrative: 67 yo F with morbid obesity on prolonged ventilation for about 13 days and unable to be weaned from ventilator. Multiple discussions have been had between palliative care team and family and decision has been made to proceed with PEG and tracheostomy placement. Patient has atrial fibrillation at times with RVR and is maintained on heparin gtt at this time. Review of Systems unobtainable due to endotracheal tube PMFSH - History History Provided By: Medical Record - Medical / Surgical Hx Neg / Unobtainable Medical Problems Denied: Unable to Obtain - Medical History Medical History: Medical History (Last Reviewed 06/13/18 @ 08:20 by Jono Washburn, PT) Depression Diabetes Hypertension Hypertriglyceridemia Morbid obesity - Family History Family History: Family History (Last Reviewed 06/08/18 @ 07:58 by Adrian Card) Grandparent Colon cancer - Tobacco History Tobacco Use In Past 30 Days: Yes Smoking Status: Heavy tobacco smoker Tobacco Type: Cigarettes Packs Per Day: 2 Years Smoked: 40 - Alcohol History How Often Do You Have a Drink Containing Alcohol: Monthly or less - Substance Use History Substance History: No History of Abuse - Travel History Recent Travel in the [place] Within the Last 8 Weeks: No Recent Travel Out of the Country Within the Last 8 Weeks: No - Immunization History Tetanus Immunization: Unsure Hx Influenza Vaccine This Season: No Medications and Allergies Active Medications: Active Medications Acetaminophen (Tylenol Liq) 650 mg PO Q6H PRN PRN Reason: FEVER Al Hydroxide/Mg Hydroxide (Milk Of Magnesia Liq) 30 ml PO Q12H PRN PRN Reason: Mild Constipation Albuterol (Duoneb Neb (Casie)) 1 ampul NEB Q4HR NEB CASIE Last Admin: 06/14/18 08:46 Dose: 1 ampul Albuterol (Albuterol Neb (Prn)) 2.5 mg NEB Q2HR NEB PRN PRN Reason: DYSPNEA Last Admin: 06/11/18 20:52 Dose: 2.5 mg Artificial Tears (Genteal Severe Dry Eye Relief 0.3% Opth Gel) 1 drops EACH EYE HS CASIE Last Admin: 06/13/18 20:34 Dose: 1 drops Bisacodyl (Dulcolax Supp) 10 mg RECTAL DAILY PRN PRN Reason: SEVERE CONSITIPATION Chlorhexidine Gluconate (Peridex 0.12% Oral Kit) 15 ml OROPHARYNG BID@08, 1999 [facility] Last Admin: 06/14/18 08:59 Dose: 15 ml Citalopram Hydrobromide (Celexa) 20 mg PO DAILY [facility] Last Admin: 05/31/18 09:17 Dose: Not Given Collagenase (Santyl Oint) 1 applicatio TOPICAL DAILY [facility] Last Admin: 06/14/18 09:00 Dose: 1 applicatio Dextrose (D50w Vial) 50 ml IV.PUSH UNSCH PRN PRN Reason: PER HYPOGLYCEMIA PROTOCOL Last Admin: 06/07/18 11:25 Dose: 50 ml Digoxin (Lanoxin Inj) 250 mcg IV.PUSH DAILY [facility] Last Admin: 06/14/18 09:00 Dose: 250 mcg Glucagon (Glucagon Inj) 1 mg OTHER PRN PRN PRN Reason: for Hypoglycemia Protocol Sodium Chloride (1/2 Normal Saline Inj) 1,000 mls @ 20 mls/hr IV.CONT .Q24H [facility] Last Admin: 06/13/18 18:53 Dose: 20 mls/hr Fentanyl (Fentanyl 10 Mcg/Ml Premix Drip) 2,500 mcg in 250 mls @ 5 mls/hr IV.SIG TITRATE PRN; Protocol PRN Reason: Per Protocol Last Titration: 06/14/18 05:57 Dose: 100 mcg/hr, 10 mls/hr Midazolam HCl (Versed Inj) 50 mg in 50 mls @ 2 mls/hr IV.CONT TITRATE PRN; Protocol PRN Reason: Per Protocol Last Admin: 06/14/18 05:55 Dose: 8 mg/hr, 8 mls/hr Cefepime HCl 2,000 mg/ Sodium (Chloride) 100 mls @ 200 mls/hr IV.SIG Q12H [facility] Stop: 06/14/18 23:00 Last Infusion: 06/14/18 04:14 Dose: Infused Magnesium Sulfate Inj 4 gm/ (Sodium Chloride) 100 mls @ 50 mls/hr IV.SIG UNSCH PRN PRN Reason: For Magnesium 0.9 - 1.1 mg/dL Potassium Chloride (Kcl 40 Meq Premix Inj) 40 meq in 100 mls @ 25 mls/hr IV.SIG Q2H PRN PRN Reason: For Potassium 2.8 - 3.2 mEq/L Potassium Chloride (Kcl 20 Meq Premix Inj) 20 meq in 100 mls @ 50 mls/hr IV.SIG Q2H PRN PRN Reason: For Potassium 3.3 - 3.5 mEq/L Potassium Chloride (Kcl 40 Meq Premix Inj) 40 meq in 100 mls @ 25 mls/hr IV.SIG UNSCH PRN PRN Reason: For Potassium 3.3 - 3.5 mEq/L Potassium Chloride (Kcl 20 Meq Premix Inj) 20 meq in 100 mls @ 50 mls/hr IV.SIG Q2H PRN PRN Reason: For Potassium 2.8 - 3.2 mEq/L Sodium Phosphate 30 mmol/ (Sodium Chloride) 260 mls @ 42 mls/hr IV.SIG UNSCH PRN PRN Reason: For Phosphorus < 2.5 mg/dL Magnesium Sulfate Inj 2 gm/ (Sodium Chloride) 100 mls @ 50 mls/hr IV.SIG UNSCH PRN PRN Reason: For Magnesium 1.2 - 1.6 mg/dL Potassium Phosphate 30 mmol/ (Sodium Chloride) 260 mls @ 42 mls/hr IV.SIG UNSCH PRN PRN Reason: SEE LABEL COMMENTS Dexmedetomidine HCl 1,000 mcg/ (Sodium Chloride) 250 mls @ 8.01 mls/hr IV.CONT TITRATE PRN; Protocol PRN Reason: Per Protocol Last Admin: 06/12/18 08:54 Dose: 0.2 mcg/kg/hr, 8.01 mls/hr Heparin Sodium/Dextrose (Heparin/D5w 25,000 U/250 Ml) 25,000 unit in 250 mls @ 9 mls/hr IV.CONT TITRATE PRN; Protocol PRN Reason: Per Protocol Last Titration: 06/14/18 04:14 Dose: 1,600 units/hr, 16 mls/hr Insulin Detemir (Levemir Inj) 32 unit SQ BID [facility] Last Admin: 06/14/18 08:59 Dose: 32 unit Insulin Human Regular (Novolin R Supplemental Scale) 0 units SQ Q6HR CASIE; Protocol Last Admin: 06/14/18 05:14 Dose: 7 units Lactulose (Lactulose Liq) 30 ml PO DAILY PRN PRN Reason: SEVERE CONSITIPATION Lansoprazole (Prevacid Solutab) 30 mg NG/OG DAILY [facility] Last Admin: 06/14/18 09:00 Dose: 30 mg Lisinopril (Prinivil) 20 mg PO DAILY [facility] Last Admin: 06/01/18 08:29 Dose: 20 mg Lorazepam (Ativan Inj) 1 mg IV.PUSH Q2H PRN PRN Reason: SEIZURE ACTIVITY Magnesium Oxide (Mag-Ox) 800 mg PO UNSCH PRN PRN Reason: For Magnesium 1.2 - 1.6 mg/dL Methylprednisolone Sodium Succinate (Solumedrol Inj) 30 mg IV.PUSH DAILY [facility] Last Admin: 06/14/18 09:00 Dose: 30 mg Mupirocin (Bactroban 2% Nasal Oint) 1 applicatio EACH NARE BID [facility] Last Admin: 06/14/18 08:59 Dose: 1 applicatio Ondansetron HCl (Zofran Inj) 4 mg IV.PUSH Q6H PRN PRN Reason: NAUSEA OR VOMITING Potassium Bicarb/Potassium Chloride (K-Lyte Cl Eff) 50 meq PO UNSCH PRN PRN Reason: For Potassium 3.3 - 3.5 mEq/L Potassium Phosphate (K-Phos Original) 2,000 mg PO Q4H PRN PRN Reason: Phosphorus Less Than 2.5 mg/dL Potassium Phosphate (K-Phos Original) 2,000 mg PO UNSCH PRN PRN Reason: SEE LABEL COMMENTS Pravastatin Sodium (Pravachol) 80 mg PO QPM [facility] Last Admin: 06/13/18 18:53 Dose: 80 mg Senna/Docusate Sodium (Maira-Colace) 1 tab PO BID [facility] Last Admin: 06/14/18 09:00 Dose: Not Given Sennosides (Senokot) 17.2 mg PO Q12H PRN PRN Reason: Moderate Constipation Sterile Water (Free Water) 200 ml NG/OG Q6HR [facility] Last Admin: 06/14/18 05:14 Dose: 200 ml Allergies Allergy/AdvReac Type Severity Reaction Status Date / Time No Known Allergies Allergy Verified 05/30/18 22:08 Home Medications Medication Instructions Recorded Confirmed Type citalopram 20 mg PO DAILY 05/30/18 05/30/18 History glipizide 5 mg PO BID 05/30/18 05/30/18 History lisinopril-hydrochlorothiazide 1 tab PO DAILY 05/30/18 05/31/18 History lorazepam 0.5 mg PO DAILY 05/30/18 05/30/18 History metformin 1,000 mg PO BID 05/30/18 05/30/18 History simvastatin 40 mg PO QPM 05/30/18 05/30/18 History Exam Vital signs: Vital Signs 06/13/18 13:00 06/13/18 14:00 06/13/18 15:00 Temperature Pulse Rate 85 86 52 L Respiratory Rate 16 24 16 Blood Pressure 132/66 131/89 Pulse Oximetry 92 L 95 93 L 06/13/18 15:01 06/13/18 15:40 06/13/18 16:00 Temperature 98.9 F Pulse Rate 50 L 52 L 49 L Respiratory Rate 16 16 16 Blood Pressure 106/56 L 112/53 L 125/60 Pulse Oximetry 93 L 93 L 95 06/13/18 16:01 06/13/18 16:19 06/13/18 16:31 Temperature Pulse Rate 52 L 46 L Respiratory Rate 16 17 16 Blood Pressure 110/53 L 116/56 L Pulse Oximetry 95 97 96 06/13/18 17:00 06/13/18 17:01 06/13/18 17:31 Temperature Pulse Rate 55 L 46 L 55 L Respiratory Rate 16 16 16 Blood Pressure 117/59 L 116/55 L Pulse Oximetry 94 L 94 L 93 L 06/13/18 18:00 06/13/18 18:01 06/13/18 18:31 Temperature Pulse Rate 55 L 54 L 68 Respiratory Rate 16 16 16 Blood Pressure 113/55 L 124/72 Pulse Oximetry 94 L 94 L 98 06/13/18 19:00 06/13/18 19:01 06/13/18 19:31 Temperature Pulse Rate 56 L 54 L 62 Respiratory Rate 16 16 17 Blood Pressure 130/58 L 128/59 L Pulse Oximetry 96 96 97 06/13/18 20:00 06/13/18 20:01 06/13/18 20:30 Temperature 98.8 F Pulse Rate 54 L 53 L 85 Respiratory Rate 16 16 18 Blood Pressure 123/59 L 125/83 Pulse Oximetry 93 L 94 L 94 L 06/13/18 21:00 06/13/18 21:01 06/13/18 21:30 Temperature Pulse Rate 50 L 53 L 88 Respiratory Rate 16 16 21 Blood Pressure 105/53 L 130/72 Pulse Oximetry 93 L 92 L 96 06/13/18 22:00 06/13/18 22:01 06/13/18 22:18 Temperature Pulse Rate 54 L 47 L Respiratory Rate 16 16 16 Blood Pressure 117/58 L Pulse Oximetry 94 L 94 L 97 06/13/18 22:31 06/13/18 23:00 06/13/18 23:01 Temperature Pulse Rate 56 L 79 71 Respiratory Rate 16 16 16 Blood Pressure 127/60 142/63 H Pulse Oximetry 97 95 96 06/13/18 23:35 06/13/18 23:41 06/14/18 00:00 Temperature Pulse Rate 86 61 56 L Respiratory Rate 17 16 16 Blood Pressure 146/67 H Pulse Oximetry 98 96 06/14/18 00:01 06/14/18 00:31 06/14/18 01:00 Temperature 98.3 F Pulse Rate 54 L 90 62 Respiratory Rate 16 22 16 Blood Pressure 139/61 162/69 H 161/103 H Pulse Oximetry 96 98 95 06/14/18 01:45 06/14/18 02:00 06/14/18 02:01 Temperature Pulse Rate 83 56 L 53 L Respiratory Rate 19 16 16 Blood Pressure 130/63 128/60 Pulse Oximetry 94 L 96 95 06/14/18 02:31 06/14/18 03:00 06/14/18 03:31 Temperature Pulse Rate 56 L 60 62 Respiratory Rate 16 16 16 Blood Pressure 126/56 L 130/75 130/59 L Pulse Oximetry 98 96 96 06/14/18 03:36 06/14/18 04:00 06/14/18 04:01 Temperature 98.3 F Pulse Rate 65 79 82 Respiratory Rate 16 26 H 23 Blood Pressure 135/62 Pulse Oximetry 99 99 06/14/18 04:27 06/14/18 06:00 06/14/18 08:47 Temperature Pulse Rate 52 L 55 L Respiratory Rate 16 11 L Blood Pressure Pulse Oximetry 98 98 Intake & Output 06/13/18 06/14/18 06/14/18 18:59 06:59 18:59 Intake Total 2122 / 2122 1656 / 1656 Output Total 1200 / 1200 1700 / 1700 Balance 922 / 922 -44 / -44 Weight 163 kg Intake: IV 1350 / 1350 550 / 550 Heparin/D5W 25,000 U/250 mL 25, 250 / 250 000 unit In 250 ml @ Per Protocol 9 mls/hr IV.CONT TITRATE PRN Rx#:[id number] Versed Inj 50 mg In 50 ml @ 2 100 / 100 100 / 100 MG/HR 2 mls/hr IV.CONT TITRATE PRN Rx#:[id number] 1/2 Normal Saline Inj 1,000 ML 1000 / 1000 @ 20 mls/hr IV.CONT .Q24H [facility] Rx#:[id number] Maxipime Inj 2,000 MG In NS Inj 200 / 200 100 ML @ 200 mls/hr IV.SIG Q12H [facility] Rx#:[id number] fentaNYL 10 mcg/mL Premix Drip 250 / 250 2,500 mcg In 250 ml @ 50 MCG/HR 5 mls/hr IV.SIG TITRATE PRN Rx #:[id number] Tube Feeding 772 / 772 706 / 706 Water Bolus Amount 400 / 400 Output: Urine Amount (Catheter) 1200 / 1200 1700 / 1700 Indwelling Urethral Catheter 1200 / 1200 1700 / 1700 Other: Date of Last Bowel Movement 06/12/18 06/12/18 # Bowel Movements 0 Narrative: GENERAL: Morbidly obese. Lying in bed on ventilator via ETT, sedated. HEAD: Normocephalic. Atraumatic. ENT: orotracheally intubated. OG tube in place. NECK: Trachea midline. Obese. No scars. CHEST: Ventilated CPAP, FIO50%, 18/6 CARDIOVASCULAR: Regular rate ABDOMEN: Obese SKIN: Warm, dry, nonjaundiced. Results - Labs 06/14/18 03:28 06/14/18 03:28 Abnormal lab results 06/13/18 06/13/18 06/14/18 Range/Units 18:49 23:06 03:28 MCHC (32.0-36.0) % Neut % (Auto) (16.0-70.0) % Lymph % (Auto) (9.0-44.0) % Lymph # (Auto) (1.0-4.8) th/mm3 APTT 38.0 H (24.3-30.1) sec BUN (7-18) mg/dL Estimated GFR (>89) mL/min POC Glucose 297 H 352 H (68-110) mg/dl Random Glucose (74-106) mg/dL 06/14/18 06/14/18 06/14/18 Range/Units 03:28 03:28 05:13 MCHC 31.2 L (32.0-36.0) % Neut % (Auto) 86.4 H (16.0-70.0) % Lymph % (Auto) 7.2 L (9.0-44.0) % Lymph # (Auto) 0.6 L (1.0-4.8) th/mm3 APTT (24.3-30.1) sec BUN 25 H (7-18) mg/dL Estimated GFR 76 L (>89) mL/min POC Glucose 253 H (68-110) mg/dl Random Glucose 225 H (74-106) mg/dL 06/14/18 Range/Units 10:30 MCHC (32.0-36.0) % Neut % (Auto) (16.0-70.0) % Lymph % (Auto) (9.0-44.0) % Lymph # (Auto) (1.0-4.8) th/mm3 APTT 44.8 H (24.3-30.1) sec BUN (7-18) mg/dL Estimated GFR (>89) mL/min POC Glucose (68-110) mg/dl Random Glucose (74-106) mg/dL Diabetes panel 06/14/18 Range/Units 03:28 Sodium 138 (136-145) meq/L Potassium 4.4 (3.5-5.1) meq/L Chloride 103 (98-107) meq/L Carbon Dioxide 30.1 (21.0-32.0) meq/L BUN 25 H (7-18) mg/dL Creatinine 0.76 (0.50-1.00) mg/dL Calcium 8.5 (8.5-10.1) mg/dL Calcium panel 06/14/18 Range/Units 03:28 Calcium 8.5 (8.5-10.1) mg/dL Phosphorus 3.4 (2.5-4.9) mg/dL Pituitary panel 06/14/18 Range/Units 03:28 Sodium 138 (136-145) meq/L Potassium 4.4 (3.5-5.1) meq/L Chloride 103 (98-107) meq/L Carbon Dioxide 30.1 (21.0-32.0) meq/L BUN 25 H (7-18) mg/dL Creatinine 0.76 (0.50-1.00) mg/dL Calcium 8.5 (8.5-10.1) mg/dL Adrenal panel 06/14/18 Range/Units 03:28 Sodium 138 (136-145) meq/L Potassium 4.4 (3.5-5.1) meq/L Chloride 103 (98-107) meq/L Carbon Dioxide 30.1 (21.0-32.0) meq/L BUN 25 H (7-18) mg/dL Creatinine 0.76 (0.50-1.00) mg/dL Calcium 8.5 (8.5-10.1) mg/dL All other labs normal. Assessment and Plan - Assessment (1) Morbid obesity with BMI of 50.0-59.9, adult Code(s): E66.01 - Morbid (severe) obesity due to excess calories; Z68.43 - Body mass index (BMI) 50-59.9 , adult Status: Acute (2) Respiratory failure Code(s): J96.90 - Respiratory failure, unspecified, unspecified whether with hypoxia or hypercapnia Status: Acute - Plan Plan for bedside tracheostomy tomorrow. D/w Dr. Rouse. Heparin gtt will be stopped at midnight.
[2018-06-14] MEDS ORDERED: Mag Sulf 1 gm/100 ml Premix 100 ML IV.SIG ONE (14:37)
--- NOTE | 2018-06-14 14:41 | P.PNCC ---
Subjective Subjective Remarks/Hospital Course: Mrs. Scott is a 67-year-old female with past medical history significant for morbid obesity, type 2 diabetes, hypertension, probable COPD who was brought in by the family yesterday night because of increasing weakness and lethargic, this was ongoing for last 2 weeks got worse over the last 2 days. Unable to get detailed history from patient due to lethargy. ER workup showed patient had a urinary tract infection and sepsis, also chest x-ray showed bilateral interstitial infiltrates, and LLL consolidation. There is also evidence of acute kidney injury with creatinine up to 2.59, BUN 89. Intermittently having tachyarrhythmia/atrial flutter with rate in in 130s. Patient was admitted to the hospital service. At the time of hospitalist (Dr. Mckeon) evaluation patient was very lethargic and ABG showed a pH of 7.08 and a PCO2 of 91, PO2 was 70 on 5 L nasal cannula. Patient was immediately placed on BiPAP. Approximately after 45 minutes ABG was repeat showed only marginal improvement pH of 7.12 and PCO2 of 84. Patient was emergently transferred to the ICU and critical care was consulted I evaluated the patient in the ICU. She is currently on BiPAP 15/. Patient is lethargic, even though arousable she falls right back to sleep. Airway protection was questionable. With severe hypercarbic respiratory failure complicated with sepsis, metabolic encephalopathy and acute kidney failure, decision was made to intubate the patient. I endotracheally intubate the patient in placed on the mechanical ventilation. Prior to and post intubation patient heart rate remained in 130s. Hypotensive postintubation, stat 2 L fluid boluses given. Also started on Levophed to keep map above 65. Patient had been placed on Rocephin and will discontinue this and start renally dosed cefepime, add azithromycin for atypical coverage. ID consulted for questionable scabies and sepsis with shock 06/02: Remains critically ill but stabilizing more. ABG shows correction of severe hypercapnia. FiO2 remains at 50%. Urine output adequate BUN remains elevated creatinine slightly improved. Received treatment with permethrin 06/02: Currently afebrile. Bradycardic on the ventilator. Will adjust sedation to midazolam and fentanyl drips. Tolerating tube feeds at 30 cc an hour. XRT of the right foot ordered. 06/03 No events overnight. Sedated with Versed and Fentanyl drips. Afebrile. 06/04: Remains on midazolam drip at 4 mg an hour and fentanyl drip at 100 mcg an hour. Tolerating tube feeds. Currently afebrile. Failed spontaneous breathing trials today. 06/05: Ventilator settings unchanged. Remains on midazolam drip at 5 mg an hour and fentanyl drip at 100 mcg an hour. Tolerating tube feeds. We will reattempt spontaneous breathing trials today. 06/06 Patient is sedated with Fentanyl and versed drips and intubated. Afebrile. 06/07: Afebrile. Remains on midazolam drip at 5 mg an hour and fentanyl drip at 100 mcg an hour. MRI brain revealed no acute intracranial findings. Opens eyes. Not following commands currently. 06/08: Afebrile. Remains on midazolam drip. Opens eyes but not following commands currently. Tolerating tube feeds at goal. Positive BM. 06/09: Tolerated CPAP trials 8 hours yesterday. Not tolerating today. Opens eyes but not follows commands. Tube feeds at goal. Positive BM. Remains on midazolam and fentanyl drips. 06/10: Afebrile. Currently on CPAP trial. 16/8 at 45%. Eyes are open. Currently in A. fib rate controlled. Will start on heparin drip. 06/11: Patient became tachycardic with A. fib with RVR and CPAP trial. Attempted 15/6 at 45%. Eyes are open. Follows commands. 06/12: We will place on dexmedetomidine and attempt CPAP today. Watch for bradycardia.. Tolerating tube feeding. Tracheostomy with palliative care discussion planned for tomorrow Wednesday 06/13. 06/13: Fails CPAP trials. Family in agreement for percutaneous tracheostomy and percutaneous gastrostomy tube placement. Consult placed. Patient currently in sinus bradycardia. Subjective 06/14: Plan for percutaneous tracheostomy and percutaneous endoscopic gastrostomy tube placement in a.m. 06/15. FiO2 50% on CPAP trials currently. Tolerating tube feeds. N.p.o. after midnight with heparin drip to be held Objective Vital Signs / I&O: Vital Signs 06/13/18 15:00 06/13/18 15:01 06/13/18 15:40 Temperature Pulse Rate 52 L 50 L 52 L Respiratory Rate 16 16 16 Blood Pressure 106/56 L 112/53 L Pulse Oximetry 93 L 93 L 93 L 06/13/18 16:00 06/13/18 16:01 06/13/18 16:19 Temperature 98.9 F Pulse Rate 49 L 52 L Respiratory Rate 16 16 17 Blood Pressure 125/60 110/53 L Pulse Oximetry 95 95 97 06/13/18 16:31 06/13/18 17:00 06/13/18 17:01 Temperature Pulse Rate 46 L 55 L 46 L Respiratory Rate 16 16 16 Blood Pressure 116/56 L 117/59 L Pulse Oximetry 96 94 L 94 L 06/13/18 17:31 06/13/18 18:00 06/13/18 18:01 Temperature Pulse Rate 55 L 55 L 54 L Respiratory Rate 16 16 16 Blood Pressure 116/55 L 113/55 L Pulse Oximetry 93 L 94 L 94 L 06/13/18 18:31 06/13/18 19:00 06/13/18 19:01 Temperature Pulse Rate 68 56 L 54 L Respiratory Rate 16 16 16 Blood Pressure 124/72 130/58 L Pulse Oximetry 98 96 96 06/13/18 19:31 06/13/18 20:00 06/13/18 20:01 Temperature 98.8 F Pulse Rate 62 54 L 53 L Respiratory Rate 17 16 16 Blood Pressure 128/59 L 123/59 L Pulse Oximetry 97 93 L 94 L 06/13/18 20:30 06/13/18 21:00 06/13/18 21:01 Temperature Pulse Rate 85 50 L 53 L Respiratory Rate 18 16 16 Blood Pressure 125/83 105/53 L Pulse Oximetry 94 L 93 L 92 L 06/13/18 21:30 06/13/18 22:00 06/13/18 22:01 Temperature Pulse Rate 88 54 L 47 L Respiratory Rate 21 16 16 Blood Pressure 130/72 117/58 L Pulse Oximetry 96 94 L 94 L 06/13/18 22:18 06/13/18 22:31 06/13/18 23:00 Temperature Pulse Rate 56 L 79 Respiratory Rate 16 16 16 Blood Pressure 127/60 Pulse Oximetry 97 97 95 06/13/18 23:01 06/13/18 23:35 06/13/18 23:41 Temperature Pulse Rate 71 86 61 Respiratory Rate 16 17 16 Blood Pressure 142/63 H 146/67 H Pulse Oximetry 96 98 06/14/18 00:00 07/24/18 00:01 06/14/18 00:31 Temperature 98.3 F Pulse Rate 56 L 54 L 90 Respiratory Rate 16 16 22 Blood Pressure 139/61 162/69 H Pulse Oximetry 96 96 98 06/14/18 01:00 06/14/18 01:45 06/14/18 02:00 Temperature Pulse Rate 62 83 56 L Respiratory Rate 16 19 16 Blood Pressure 161/103 H 130/63 Pulse Oximetry 95 94 L 96 06/14/18 02:01 06/14/18 02:31 06/14/18 03:00 Temperature Pulse Rate 53 L 56 L 60 Respiratory Rate 16 16 16 Blood Pressure 128/60 126/56 L 130/75 Pulse Oximetry 95 98 96 06/14/18 03:31 06/14/18 03:36 06/14/18 04:00 Temperature Pulse Rate 62 65 79 Respiratory Rate 16 16 26 H Blood Pressure 130/59 L Pulse Oximetry 96 99 06/14/18 04:01 06/14/18 04:27 06/14/18 06:00 Temperature 98.3 F Pulse Rate 82 52 L Respiratory Rate 23 16 Blood Pressure 135/62 Pulse Oximetry 99 98 06/14/18 08:47 06/14/18 12:09 Temperature Pulse Rate 55 L 54 L Respiratory Rate 11 L 17 Blood Pressure Pulse Oximetry 98 93 L Intake & Output 06/13/18 06/14/18 06/14/18 18:59 06:59 18:59 Intake Total 2122 / 2122 1656 / 1656 50 / 50 Output Total 1200 / 1200 1700 / 1700 Balance 922 / 922 -44 / -44 50 / 50 Weight 163 kg Intake: IV 1350 / 1350 550 / 550 50 / 50 Heparin/D5W 25,000 U/250 mL 25, 250 / 250 000 unit In 250 ml @ Per Protocol 9 mls/hr IV.CONT TITRATE PRN Rx#:[id number] Versed Inj 50 mg In 50 ml @ 2 100 / 100 100 / 100 50 / 50 MG/HR 2 mls/hr IV.CONT TITRATE PRN Rx#:[id number] 1/2 Normal Saline Inj 1,000 ML 1000 / 1000 @ 20 mls/hr IV.CONT .Q24H BECKY Rx#:[id number] Maxipime Inj 2,000 MG In NS Inj 200 / 200 100 ML @ 200 mls/hr IV.SIG Q12H BECKY Rx#:[id number] fentaNYL 10 mcg/mL Premix Drip 250 / 250 2,500 mcg In 250 ml @ 50 MCG/HR 5 mls/hr IV.SIG TITRATE PRN Rx #:[id number] Tube Feeding 772 / 772 706 / 706 Water Bolus Amount 400 / 400 Output: Urine Amount (Catheter) 1200 / 1200 1700 / 1700 Indwelling Urethral Catheter 1200 / 1200 1700 / 1700 Other: Date of Last Bowel Movement 06/12/18 06/12/18 # Bowel Movements 0 Result Diagrams: 06/14/18 03:28 06/14/18 03:28 Other Results: Microbiology 05/30/18 22:21 Blood - Peripheral Aerobic Blood Culture - Final No growth in 5 days 05/30/18 22:21 Blood - Peripheral Anaerobic Blood Culture - Final No growth in 5 days 05/30/18 22:21 Blood - Peripheral Aerobic Blood Culture - Final No growth in 5 days 05/30/18 22:21 Blood - Peripheral Anaerobic Blood Culture - Final No growth in 5 days 05/31/18 14:50 Wound - Abdominal Gram Stain - Final 05/31/18 14:50 Wound - Abdominal Wound Culture - Final S. aureus MRSA 05/31/18 13:08 Urine - Catheterized Urine Streptococcus pneumoniae Antigen ( M - Final Presumptive negative for streptococcus pneumoniae antigen, suggesting no current or recent infection. Infection due to Streptococcus pneumoniae cannot be ruled out since the antigen present in the sample may be below the detection limit of the test. 05/31/18 13:08 Urine - Catheterized Urine Legionella Antigen - Final Presumptive negative for Legionella pneumophila serogroup 1 antigen in urine, suggesting no recent or recurrent infection. Infection due to Legionella cannot be ruled out since other serogroups and species may cause disease, antigen may not be present in urine in early infection, and the level of antigen present in the urine may be below the detection limit of the test. 05/30/18 22:56 Clean Catch Urine Urine Culture - Final 50-100,000 cfu/mL mixed leesa (probable contaminants ) Imaging: Chest X-Ray 05/30/18 22:09 CONCLUSION: Cardiomegaly. Diffuse increased interstitial markings likely related to edema. Increased density at the left base with silhouetting of the left hemidiaphragm secondary to left base atelectasis, consolidation and/or effusion. Abdomen/Bladder Ultrasound 05/31/18 00:00 CONCLUSION: 1. No obstructive uropathy or other acute abnormality demonstrated. 2. Benign cyst of the right kidney. Abdomen/Pelvis CT 05/31/18 00:00 CONCLUSION: 1. Cholelithiasis. 2. Colonic diverticulosis without definitive evidence for diverticulitis. 3. Prominent uterus with hypodense 6 cm mass anteriorly likely reflecting a pedunculated fibroid. 4. Appendix is not visualized and potentially obscured by the uterine fibroid. 5. Large fat-containing left-sided anterior abdominal wall hernia. 6. Diffuse soft tissue edema in the inferior abdominal pannus. Head CT 05/31/18 00:00 CONCLUSION: 1. No acute intracranial abnormality. 2. Minimal paranasal sinus mucosal disease. Chest X-Ray 05/31/18 13:55 CONCLUSION: 1. Cardiomegaly with resolving interstitial edema and improving aeration in the left lung base. 2. Endotracheal tube appropriately positioned above the brittnee. Nasogastric tube is curled in the gastric fundus and the left IJ central venous catheter is identified. At the junction of the left and right brachiocephalic vein. Foot X-Ray 06/02/18 00:00 CONCLUSION: There is a destructive change at the distal aspect of the third distal phalanx at the tuft. Osteomyelitis needs be considered. 0.4 cm calcific density seen at the proximal lateral plantar aspect of the third digit. Chest X-Ray 06/02/18 06:00 CONCLUSION: 1. Stable tubes and lines. 2. Cardiomegaly with positive fluid balance. 3. Stable left and worsening right lower lung zone airspace disease. Chest X-Ray 06/03/18 06:00 CONCLUSION: Cardiomegaly with bilateral airspace disease greater in the right lung, unchanged. Chest X-Ray 06/04/18 00:00 CONCLUSION: No significant change Chest X-Ray 06/05/18 06:00 CONCLUSION: No significant change Chest X-Ray 06/06/18 06:00 CONCLUSION: Support apparatus unchanged. Bilateral mostly basilar airspace disease and cardiomegaly with effusions also not significantly changed considering differences in technique. Head MRI 06/07/18 00:00 CONCLUSION: 1. Senescent changes with mild periventricular ischemic white matter demyelination. 2. Otherwise, unremarkable MRI examination of the brain. Specifically, no evidence for acute infarction. 3. Paranasal sinus disease. Chest X-Ray 06/08/18 06:00 CONCLUSION: No significant change in bilateral mostly basilar and dependent airspace disease and possible mild edema. Endotracheal tube and nasogastric tube unchanged. Left central line in left brachiocephalic vein. Chest X-Ray 06/09/18 06:00 CONCLUSION: Stable bilateral airspace disease and pleural effusions. Endotracheal tube and nasogastric tube unchanged. Chest X-Ray 06/09/18 16:16 CONCLUSION: Interval placement of a right jugular central venous catheter which extends into the right atrium. No evidence of pneumothorax. Otherwise no change. Chest X-Ray 06/10/18 06:00 CONCLUSION: Considerable improvement left greater than right basilar consolidation and small effusions. Chest X-Ray 06/14/18 06:00 CONCLUSION: 1. Persistent left basilar consolidation/effusion. 2. Improving aeration in the right base. Objective Remarks: GENERAL: 67-year-old female currently resting in bed currently orotracheally intubated SKIN: Cool and dry. Tinea cruris, axillary region and under the breasts. Excoriated pannus in back. Purple rash and excoriation bilateral lower extremity HEAD: Atraumatic. Normocephalic. No temporal wasting, or tenderness. EYES: Pupils equal, round and reactive to light. Extraocular movements are present EARS, NOSE AND THROAT: Edentulous. Mucous membranes dry. Orotracheally intubated NECK: Short and obese neck, supple, Right IJ is clean dry and intact. CARDIOVASCULAR: Diminished heart sounds secondary to body habitus. Bradycardic , RR No murmurs, rubs or gallops heard RESPIRATORY: Diminished breath sounds throughout due to body habitus. No wheezing ABDOMEN: Obese abdomen, soft, with multiple striae and excoriations. Hypoactive bowel sounds EXTREMITIES: Positive pedal edema. Has mild mottling both feet. Purple rash and excoriation bilateral lower extremity. Necrotic appearing right third toe. NEUROLOGICAL: Cranial nerves appear to be grossly intact. Positive gag and cough. Spontaneously moves extremities to stimulation. Currently spontaneously opens eyes. She is following commands at the present time. Assessment and Plan - Assessment and Plan Plan: NEURO/Psych: Acute severe encephalopathy secondary to severe sepsis/hypercarbia Depression disorder NOS Chronic benzodiazepine use On midazolam drip at 2 mg an hour and fentanyl drip at 50 mcg an hour for sedation. Daily sedation vacation. Goal of RASS -2 CT brain on admission revealed no acute intracranial findings 06/06 EEG, severe encephalopathy/epileptiform activity Acetaminophen 650 every 6 hours as needed fever Holding citalopram 20 mg daily/home medication for depression. Resume clinically indicated On lorazepam 0.5 mg at night as needed. Currently on 1 mg every 15 minutes for possible seizure activity? MRI brain revealed no acute intracranial abnormalities RESP: Acute respiratory failure/hypercarbic and hypoxemic Acute COPD exacerbation Probable community-acquired pneumonia On PC/AC RR 18, IP: 23, IT:1.0, PEEP:8, FIO2 45 CPAP 15/6 and 40% as tolerated Ventilator bundle -Albuterol/ipratropium aerosols every 4 hours scheduled and albuterol aerosols every 2 hours as needed Continue IV methylprednisolone succinate 40 mg daily Spontaneous breathing trials as clinically indicated Ordered general surgery for percutaneous tracheostomy. Planned at noon 06/[address] Bahena CV: Atrial flutter with rapid ventricular response now in sinus bradycardia Sinus bradycardia currently sinus tachycardia History of essential hypertension History of dyslipidemia Off all vasopressors -Echo showed EF 50-55% -Monitor HR and BP keep MAP>65mmHg Currently on pravastatin 80 mg daily, hospital substitution for simvastatin 40 mg daily which is her home medication On digoxin 0.25 mg daily. Check level in a.m. 06/14 was 1.0 GI: Hypoalbuminemia Cholelithiasis Sigmoid diverticulosis Abdominal wall hernia/left-sided Hypoalbuminemia -on tube feeds with vital high-protein goal 65 cc an hour. Lansoprazole for GI prophylaxis Docusate sodium/senna 1 tablet twice daily for bowel regimen CT abdomen/pelvis revealed cholelithiasis, sigmoid colonic diverticulosis, and abdominal wall hernia N.p.o. after midnight for plan PEG tube in a.m. 06/15 Renal/MRI CT TECH/: Acute kidney injury resolving 6 cm uterine fibroid Right renal cyst -Monitor renal function, I/O's. avoid nephrotoxins -Renal ultrasound -right renal cyst otherwise no signs of obstruction. -Nephrology is followingDr. Narvaez Free water 200ml Q6 ID: UTI Wound cultures positive for MRSA -ID following, c 06/13 discontinued cefepime and vancomycin per IDs recommendation. Azithromycin discontinued 06/03 ceftaroline discontinued 7/16 Monitor or signs of infections (Fever, WBC) Right 3rd toe and other skin lesions/cellulitis on LLE likely sources of infection Xray foot: There is a destructive change at the distal aspect of the third distal phalanx at the tuft. 0.4 cm calcific density seen at the proximal lateral plantar aspect of the third digit. Podiatry is following, might need right third digit amputation per Podiatry Mupirocin to nares twice daily Pertinent cultures 05/31 -wound culture -MRSA 05/30 -blood cultures 2 -no growth 05/30 -UA -50- 100,000 -s/p Permethrin cream 5% for possible scabies HEME: Thrombocytopenia No indication for transfusion of blood products at this time -Monitor CBC, CMP, coags FEN/ENDO: Diabetes mellitus Holding home medications Metformin 1000 mg twice daily and glipizide at 5 mg twice daily. TSH 0.97 Insulin detemir 32 units BID and SSI with Novolin R q. 6 hour Accu-Cheks. Hold insulin detemir while n.p.o. MSK: Elevated BMI Necrotic right third toe. Xray foot: There is a destructive change at the distal aspect of the third distal phalanx at the tuft. Podiatry is following, recommend amputation when clinically stable Wt loss encouraged PT evaluate and treat PROPH: -Bilateral lower extremity SCDs. Heparin drip provides DVT prophylaxis. Lansoprazole 30 mg daily LINES: -Left IJ central line placed 05/31/18 discontinued 06/09. Right IJ CVL placed Palliative care is following. Discussed with daughter and son at bedside. Care plan discussed and all questions answered. Level 3 follow-up
[2018-06-14] MEDS: Mag Sulf 1 gm/100 ml Premix 100 ML IV.SIG SCH ×3 (17:40→21:19)
[2018-06-14] MEDS: Hypromellose 0.3% Opth Gel 10 GM Bottle EACH EYE SCH (21:18)
[2018-06-15] MEDS: Insulin NovoLIN Regular Correctional Sugar Inj SQ SCH ×4 (00:08→20:25)
[2018-06-15] MEDS: Oral Hygiene Kit OROPHARYNG SCH ×4 (00:09→18:46)
[2018-06-15 00:12] LABS: Baso % (Auto) 0.3 % (0.0-2.0); Eos % (Auto) 0.1 % (0.0-4.0); Hemoglobin 12.1 gm/dL (11.6-15.3); Lymph # (Auto) 0.3 th/mm3 (1.0-4.8); Lymph % (Auto) 4.8 % (9.0-44.0); Mean Corpuscular Hemoglobin 27.2 pg (27.0-34.0); Mean Corpuscular Volume 87.7 fL (80.0-100.0); Mean Platelet Volume 8.5 fL (7.0-11.0); Mono # (Auto) 0.3 th/mm3 (0.0-0.9); Neut # (Auto) 5.8 th/mm3 (1.8-7.7); Neut % (Auto) 89.8 % (16.0-70.0); Platelet Count 166 th/mm3 (150-450); Red Blood Count 4.44 mil/mm3 (4.00-5.30); Red Cell Distribution Width 17.1 % (11.6-17.2); White Blood Count 6.5 th/mm3 (4.0-11.0)
[2018-06-15 00:24] LABS: Prothrombin Time 10.2 sec (9.8-11.6)
[2018-06-15 00:28] LABS: Calcium 8.3 mg/dL (8.5-10.1); Carbon Dioxide 30.9 meq/L (21.0-32.0); Magnesium 2.4 mg/dL (1.5-2.5); Phosphorus 3.6 mg/dL (2.5-4.9); Potassium 5.2 meq/L (3.5-5.1)
[2018-06-15] MEDS: Midazolam 50 MG/50 ML Inj 50 MG/50 ML BAG IV.CONT PRN ×5 (01:56→21:50)
[2018-06-15] MEDS: fentaNYL 10 mcg/mL Premix Drip 2,500 MCG/250 ML BAG IV.SIG PRN ×3 (03:38→21:49)
--- NOTE | 2018-06-15 06:50 | XR ---
EXAM DATE: 06/15/2018 6:41 AM EDT AGE/SEX: 67 years / Female INDICATIONS: Respiratory failure. CLINICAL DATA: This is the patient's subsequent encounter. Patient reports that signs and symptoms h ave been present for 2 weeks and indicates a pain score of Nonresponsive. MEDICAL/SURGICAL HISTORY: . Chronic obstructive pulmonary disease. Hypercholesterolemia. Hypert ension. Anemia. Craniotomy. Tonsillectomy. . COMPARISON: [facility] [place], CHEST 1V SINGLE AP, 06/14/2018. . FINDINGS: A single AP view of the chest demonstrates persistent left basilar consolidation/effusion. Improving atelectasis in the right base. Heart size is prominent. Life support tubes are stable in position. CONCLUSION: 1. Persistent left basilar consolidation/effusion. 2. Improving atelectatic changes in the right base. 3. Cardiomegaly. Stable position of life-support tubes. Electronically signed by: Kristofer Altamirano MD 06/15/2018 6:49 AM EDT
[2018-06-15] MEDS: Insulin Detemir Inj 1,000 UNIT/10 ML Vial SQ SCH ×2 (08:00→20:26)
--- NOTE | 2018-06-15 08:05 | P.PNID ---
Subjective Remarks: Patient is a 67-year-old female, lives at home with her son, brought into the hospital for evaluation of 2-3 week history of generalized weakness. According to the notes normally she can ambulate in her home using a walker. She was still able to do some ambulation, however for the past 2 days, patient apparently has not been able to get up. It was also noted that she was having some swelling in her abdomen and there was some mention of possible redness. There was no mention of any fever or chills. She has not been congested or coughing. She has not been complaining of any chest pain or any shortness of breath. There is been no nausea or vomiting, or complaints of any diarrhea or urinary complaints. She has known hypertension and diabetes, and there was mention that she has not been able to take her medications since she did not have any money to get her refills. She was initially admitted to the regular floor, and but she developed progressive lethargy, and she was transferred to the ICU. She has not been febrile. Her mental status continued to deteriorate, and she ended up getting intubated. Her chest x-ray showing opacity on the left base. She also has evidence of elevated creatinine, as well as hyperkalemia. Her urinalysis did show significant pyuria. She is getting fluid resuscitation. Currently her blood pressure is holding. Infectious disease consultation has been requested to evaluate the patient with severe sepsis, UTI, and possible scabies. Notes reviewed Afebrile BP ok Sedated on the vent PEG and trach placement today CXR stable L base opacity WBC normal Finished Abx 06/14 Antibiotics: None Lines: [facility] - 06/09 Past Medical History: Depression Diabetes Hypertension Hypertriglyceridemia Allergies/Adverse Reactions: Allergies No Known Allergies Allergy (Verified 05/30/18 22:08) Objective Vital Signs 06/14/18 08:01 06/14/18 08:31 06/14/18 08:47 Temperature Pulse Rate 59 L 66 55 L Respiratory Rate 16 16 11 L Blood Pressure 142/61 H 106/79 Pulse Oximetry 99 88 L 98 06/14/18 09:00 06/14/18 09:01 06/14/18 09:31 Temperature Pulse Rate 60 59 L 58 L Respiratory Rate 14 16 17 Blood Pressure 107/53 L 100/52 L Pulse Oximetry 97 97 96 06/14/18 10:00 07/24/18 10:30 06/14/18 11:00 Temperature Pulse Rate 59 L 58 L 58 L Respiratory Rate 16 15 19 Blood Pressure 95/51 L 105/53 L Pulse Oximetry 95 97 93 L 06/14/18 11:01 06/14/18 11:31 06/14/18 12:00 Temperature Pulse Rate 84 56 L 56 L Respiratory Rate 22 18 20 Blood Pressure 153/60 H 125/56 L Pulse Oximetry 95 96 93 L 06/14/18 12:01 06/14/18 12:09 06/14/18 12:30 Temperature Pulse Rate 55 L 54 L 55 L Respiratory Rate 19 17 19 Blood Pressure 110/51 L 107/51 L Pulse Oximetry 93 L 93 L 91 L 06/14/18 13:00 06/14/18 13:01 06/14/18 13:30 Temperature Pulse Rate 53 L 54 L 61 Respiratory Rate 21 23 23 Blood Pressure 100/55 L 108/55 L Pulse Oximetry 91 L 92 L 93 L 06/14/18 14:00 06/14/18 14:30 06/14/18 15:00 Temperature Pulse Rate 54 L 64 55 L Respiratory Rate 20 19 20 Blood Pressure 107/53 L 116/57 L 110/53 L Pulse Oximetry 93 L 91 L 94 L 06/14/18 15:30 06/14/18 15:44 06/14/18 16:00 Temperature Pulse Rate 54 L 50 L 53 L Respiratory Rate 20 18 21 Blood Pressure 99/53 L 100/52 L Pulse Oximetry 93 L 95 92 L 06/14/18 16:31 06/14/18 17:00 06/14/18 17:01 Temperature Pulse Rate 50 L 50 L 52 L Respiratory Rate 18 16 16 Blood Pressure 92/46 L 103/53 L Pulse Oximetry 90 L 91 L 92 L 06/14/18 18:00 06/14/18 20:00 06/14/18 20:30 Temperature 98.9 F Pulse Rate 58 L 44 L Respiratory Rate 16 16 Blood Pressure 133/60 Pulse Oximetry 96 93 L 06/14/18 20:37 06/14/18 22:00 06/14/18 23:39 Temperature Pulse Rate 79 50 L Respiratory Rate 16 16 Blood Pressure Pulse Oximetry 91 L 06/14/18 23:43 06/15/18 00:00 06/15/18 02:00 Temperature 98.6 F Pulse Rate 82 53 L 89 Respiratory Rate 16 16 Blood Pressure 107/53 L Pulse Oximetry 96 06/15/18 03:24 06/15/18 04:00 06/15/18 04:23 Temperature 98.8 F Pulse Rate 62 58 L Respiratory Rate 16 16 16 Blood Pressure 106/55 L Pulse Oximetry 95 98 06/15/18 06:00 06/15/18 07:37 Temperature Pulse Rate 55 L 61 Respiratory Rate 16 Blood Pressure Pulse Oximetry 97 Intake & Output 06/14/18 06/15/18 06/15/18 18:59 06:59 18:59 Intake Total 1556 / 1556 1186 / 1186 Output Total 1050 / 1050 1500 / 1500 Balance 506 / 506 -314 / -314 Weight 165 kg Intake: IV 400 / 400 600 / 600 Heparin/D5W 25,000 U/250 mL 25, 250 / 250 50 / 50 000 unit In 250 ml @ Per Protocol 9 mls/hr IV.CONT TITRATE PRN Rx#:[id number] Versed Inj 50 mg In 50 ml @ 2 50 / 50 100 / 100 MG/HR 2 mls/hr IV.CONT TITRATE PRN Rx#:[id number] Maxipime Inj 2,000 MG In NS Inj 100 / 100 100 ML @ 200 mls/hr IV.SIG Q12H BECKY Rx#:[id number] Magnesium Sulfate 1 gm/D5W 100 100 / 100 100 / 100 ml Premix 100 ML @ 100 mls/hr IV.SIG Q1H BECKY Rx#:[id number] fentaNYL 10 mcg/mL Premix Drip 250 / 250 2,500 mcg In 250 ml @ 50 MCG/HR 5 mls/hr IV.SIG TITRATE PRN Rx #:[id number] Tube Feeding 756 / 756 386 / 386 Water Bolus Amount 400 / 400 200 / 200 Output: Urine 1500 / 1500 Urine Amount (Catheter) 1050 / 1050 Indwelling Urethral Catheter 1050 / 1050 Other: Date of Last Bowel Movement 06/12/18 06/12/18 # Bowel Movements 0 Lab - Hematology Results 06/14/18 06/15/18 03:28 00:00 WBC 7.8 6.5 RBC 4.60 4.44 Hgb 12.5 12.1 Hct 39.9 39.0 MCV 86.8 87.7 MCH 27.1 27.2 MCHC 31.2 L 31.0 L RDW 17.0 17.1 Plt Count 152 166 MPV 8.7 8.5 Neut % (Auto) 86.4 H 89.8 H Lymph % (Auto) 7.2 L 4.8 L [place] % (Auto) 5.6 5.0 Eos % (Auto) 0.4 0.1 Baso % (Auto) 0.4 0.3 Neut # (Auto) 6.8 5.8 Lymph # (Auto) 0.6 L 0.3 L [place] # (Auto) 0.4 0.3 Eos # (Auto) 0.0 0.0 Baso # (Auto) 0.0 0.0 WBC Differential . . Differential Comment Auto diff final Auto diff final Lab - Chemistry Results 06/13/18 06/13/18 06/14/18 18:49 23:06 03:28 Sodium 138 Potassium 4.4 Chloride 103 Carbon Dioxide 30.1 Anion Gap 5 BUN 25 H Creatinine 0.76 Estimated GFR 76 L POC Glucose 297 H 352 H Random Glucose 225 H Calcium 8.5 Phosphorus 3.4 Magnesium 1.8 06/14/18 06/14/18 06/14/18 05:13 17:36 23:52 Sodium Potassium Chloride Carbon Dioxide Anion Gap BUN Creatinine Estimated GFR POC Glucose 253 H 400 H 381 H Random Glucose Calcium Phosphorus Magnesium 06/15/18 06/15/18 00:00 05:15 Sodium 138 Potassium 5.2 H D Chloride 101 Carbon Dioxide 30.9 Anion Gap 6 BUN 27 H Creatinine 0.96 Estimated GFR 58 L POC Glucose 239 H Random Glucose 358 H D Calcium 8.3 L Phosphorus 3.6 Magnesium 2.4 D Imaging: ITS Impressions Abdomen/Bladder Ultrasound 05/31/18 00:00 CONCLUSION: 1. No obstructive uropathy or other acute abnormality demonstrated. 2. Benign cyst of the right kidney. Abdomen/Pelvis CT 05/31/18 00:00 CONCLUSION: 1. Cholelithiasis. 2. Colonic diverticulosis without definitive evidence for diverticulitis. 3. Prominent uterus with hypodense 6 cm mass anteriorly likely reflecting a pedunculated fibroid. 4. Appendix is not visualized and potentially obscured by the uterine fibroid. 5. Large fat-containing left-sided anterior abdominal wall hernia. 6. Diffuse soft tissue edema in the inferior abdominal pannus. Head CT 05/31/18 00:00 CONCLUSION: 1. No acute intracranial abnormality. 2. Minimal paranasal sinus mucosal disease. Foot X-Ray 06/02/18 00:00 CONCLUSION: There is a destructive change at the distal aspect of the third distal phalanx at the tuft. Osteomyelitis needs be considered. 0.4 cm calcific density seen at the proximal lateral plantar aspect of the third digit. Head MRI 06/07/18 00:00 CONCLUSION: 1. Senescent changes with mild periventricular ischemic white matter demyelination. 2. Otherwise, unremarkable MRI examination of the brain. Specifically, no evidence for acute infarction. 3. Paranasal sinus disease. Chest X-Ray 06/15/18 06:00 CONCLUSION: 1. Persistent left basilar consolidation/effusion. 2. Improving atelectatic changes in the right base. 3. Cardiomegaly. Stable position of life-support tubes. Physical Exam: GENERAL: NAD, on the vent. SKIN: Cool and dry. Has abdominal striae. No generalized rash HEAD: Atraumatic. Normocephalic. No temporal wasting, or tenderness. EYES: Mcbee conjunctiva. Pupils equal, round and reactive to light. EARS, NOSE AND THROAT: Nose without bleeding or purulent nasal discharge. Orally intubated. NECK: Short and obese neck, supple, no meningeal signs CARDIOVASCULAR: Regular rate and rhythm. No murmurs, rubs or gallops heard RESPIRATORY: Decreased breath sounds both bases. Has bilateral wheezing ABDOMEN: Obese abdomen, soft, with striae, has large abdominal pannus, has obese mons pubis with excoriations, bowel sounds present and normoactive. No guarding. Dime size wound on L side of abdomen with slough, has serous drainage , no periwound redness EXTREMITIES: No clubbing, pedal edema. Dry changes on the third toe, and has dry gangrene at tip, no redness NEUROLOGICAL: Sedated, no Babinski, no clonus PSYCHIATRIC: Unable to assess LINE LIJ: No evidence of infection, has several PIV Assessment and Plan - Plan Impression Sepsis on presentation due to UTI, possible PNA L. UTI, repeat UA better Possible right 3rd toe osteomyelitis. - destructive lesion at the tuft - toe looks indolent Acute renal failure, likely multifactorial, dehydration, sepsis, resolved Respiratory failure, could have underlying ANIVAL due to morbid obesity, possibly PNA L - developed high pCo2 due to hypoventilation - CXR improving Rash looks like scabies, S/P Rx scabies with permethrim Recommendation Monitor off Abx The 3rd toe looks infolent - will need further work up at some point Monitor progress For trach and PEG placement today Seems clinically stable from ID standpoint
[2018-06-15] MEDS: Collagenase Oint 30 GM Tube TOPICAL SCH (10:32)
[2018-06-15] MEDS: Senna/Docusate Sodium 8.6/50 MG Tablet PO SCH ×2 (10:32→20:27)
[2018-06-15] MEDS: Chlorhexidine 0.12% Oral Kit 15 ML UDC OROPHARYNG SCH ×2 (10:32→20:26)
[2018-06-15] MEDS: Mupirocin 2% Nasal Oint Topical Syringe EACH NARE SCH ×2 (10:32→20:26)
--- NOTE | 2018-06-15 10:56 | GIPROC ---
[facility] [address] [facility]. [facility], [id number] EGD WITH PEG PROCEDURE REPORT EXAM DATE: 06/15/2018 PATIENT NAME: Virgen Scott MR#: [id number] BIRTHDATE: 1950 ATTENDING: Nicole Patel MD ORDER #: [id number] PLUMBER AND TINNER: Jamie Anderson Jones, Julie, Stienbarger, Terrie, and Markie Carmichael STATUS: inpatient INDICATIONS: The patient is a 67 yr old female here for an EGD with PEG due to dysphagia PROCEDURE PERFORMED: EGD with biopsy EGD with PEG placement MEDICATIONS: None and Per Anesthesia. TOPICAL ANESTHETIC: none CONSENT: The patient understands the risks and benefits of the procedure and understands that these risks include, but are not limited to: sedation, allergic reaction, infection, perforation and/or bleeding. Alternative means of evaluation and treatment include, among others: physical exam, x-rays, and/or surgical intervention. The patient elects to proceed with this endoscopic procedure. medical equipment was checked for proper function. Hand hygiene and appropriate measures for infection prevention was taken. After the risks, benefits and alternatives of the procedure were thoroughly explained, Informed consent was verified, confirmed and timeout was successfully executed by the treatment team. The patient was anesthetized with topical anesthesia and the Pentax [id number] endoscope was introduced through the mouth and advanced to the second portion of the duodenum. The instrument was slowly withdrawn as the mucosa was fully examined. Patient has significant duodenitis so biopsy was done from the antrum to rule out H. pylori The stomach was then inflated with air, and by a combination of transillumination and manual palpation, the site for the gastrostomy tube placement was selected and marked on the anterior abdominal wall. The skin of the anterior abdomen was surgically prepped and draped with sterile towels. Utilizing strict sterile technique, the selected site was then anesthetized with 1% xylocaine by injection into the skin and subcutaneous tissue. A 1 cm incision was made through the skin and subcutaneous tissue, and the needle/cannula assembly was then passed through the abdominal wall and through the anterior wall of the stomach, maintaining visualization with the endoscope. A snare device previously placed through the instrument channel was then opened and placed around the cannula, the needle was removed, and the insertion wire was passed through the cannula and into the stomach lumen. The snare was then loosened from the cannula, and repositioned to snare the insertion wire. The snare was then pulled up to the endoscope distal tip, and the scope was then withdrawn bringing with it the snare and insertion wire. The insertion wire was then released from the snare, and then loop-attached to the Bard 20 Fr gastrostomy tube. Using the "pull technique", the G-tube was then pulled into place by traction on the insertion wire at the abdominal wall end. The G-tube insertion site was then cleansed once again, and the external bolster was placed over the tube to secure it to the abdominal wall. A sterile dressing was then applied, and the procedure terminated. no abnormalities The gastroscope was then slowly withdrawn and removed. ADVERSE EVENT: There were no complications. IMPRESSIONS: No abnormalities RECOMMENDATIONS: 1. Anti-reflux regimen 2. Avoid NSAIDS 3. Continue PPI REPEAT EXAM: procedure as needed Nicole Patel MD eSigned: Nicole Patel MD 06/15/2018 10:56 AM cc: PATIENT NAME: Virgen Scott MR#: [id number]
[2018-06-15] MEDS ORDERED: Dextrose 50% in Water 50 ML Vial IV.PUSH ONE (11:00)
--- NOTE | 2018-06-15 11:24 | P.PNGI ---
Subjective Interval history: Patient is laying in bed, intubated, no new complaints Physical Exam Vital signs: Vital Signs 06/14/18 11:31 06/14/18 12:00 06/14/18 12:01 Temperature Pulse Rate 56 L 56 L 55 L Respiratory Rate 18 20 19 Blood Pressure 125/56 L 110/51 L Pulse Oximetry 96 93 L 93 L 06/14/18 12:09 06/14/18 12:30 06/14/18 13:00 Temperature Pulse Rate 54 L 55 L 53 L Respiratory Rate 17 19 21 Blood Pressure 107/51 L Pulse Oximetry 93 L 91 L 91 L 06/14/18 13:01 06/14/18 13:30 06/14/18 14:00 Temperature Pulse Rate 54 L 61 54 L Respiratory Rate 23 23 20 Blood Pressure 100/55 L 108/55 L 107/53 L Pulse Oximetry 92 L 93 L 93 L 06/14/18 14:30 06/14/18 15:00 06/14/18 15:30 Temperature Pulse Rate 64 55 L 54 L Respiratory Rate 19 20 20 Blood Pressure 116/57 L 110/53 L 99/53 L Pulse Oximetry 91 L 94 L 93 L 06/14/18 15:44 06/14/18 16:00 06/14/18 16:31 Temperature Pulse Rate 50 L 53 L 50 L Respiratory Rate 18 21 18 Blood Pressure 100/52 L 92/46 L Pulse Oximetry 95 92 L 90 L 06/14/18 17:00 06/14/18 17:01 06/14/18 18:00 Temperature Pulse Rate 50 L 52 L 58 L Respiratory Rate 16 16 Blood Pressure 103/53 L Pulse Oximetry 91 L 92 L 06/14/18 20:00 06/14/18 20:30 06/14/18 20:37 Temperature 98.9 F Pulse Rate 44 L 79 Respiratory Rate 16 16 16 Blood Pressure 133/60 Pulse Oximetry 96 93 L 06/14/18 22:00 06/14/18 23:39 06/14/18 23:43 Temperature Pulse Rate 50 L 82 Respiratory Rate 16 16 Blood Pressure Pulse Oximetry 91 L 06/15/18 00:00 06/15/18 02:00 06/15/18 03:24 Temperature 98.6 F Pulse Rate 53 L 89 62 Respiratory Rate 16 16 Blood Pressure 107/53 L Pulse Oximetry 96 06/15/18 04:00 06/15/18 04:23 06/15/18 06:00 Temperature 98.8 F Pulse Rate 58 L 55 L Respiratory Rate 16 16 Blood Pressure 106/55 L Pulse Oximetry 95 98 06/15/18 07:37 06/15/18 10:31 06/15/18 11:07 Temperature Pulse Rate 61 110 H Respiratory Rate 16 16 17 Blood Pressure Pulse Oximetry 97 94 L Intake & Output 06/14/18 06/15/18 06/15/18 18:59 06:59 18:59 Intake Total 1556 / 1556 1186 / 1186 Output Total 1050 / 1050 1500 / 1500 Balance 506 / 506 -314 / -314 Weight 165 kg Intake: IV 400 / 400 600 / 600 Heparin/D5W 25,000 U/250 mL 25, 250 / 250 50 / 50 000 unit In 250 ml @ Per Protocol 9 mls/hr IV.CONT TITRATE PRN Rx#:[id number] Versed Inj 50 mg In 50 ml @ 2 50 / 50 100 / 100 MG/HR 2 mls/hr IV.CONT TITRATE PRN Rx#:[id number] Maxipime Inj 2,000 MG In NS Inj 100 / 100 100 ML @ 200 mls/hr IV.SIG Q12H BECKY Rx#:[id number] Magnesium Sulfate 1 gm/D5W 100 100 / 100 100 / 100 ml Premix 100 ML @ 100 mls/hr IV.SIG Q1H BECKY Rx#:[id number] fentaNYL 10 mcg/mL Premix Drip 250 / 250 2,500 mcg In 250 ml @ 50 MCG/HR 5 mls/hr IV.SIG TITRATE PRN Rx #:[id number] Tube Feeding 756 / 756 386 / 386 Water Bolus Amount 400 / 400 200 / 200 Output: Urine 1500 / 1500 Urine Amount (Catheter) 1050 / 1050 Indwelling Urethral Catheter 1050 / 1050 Other: Date of Last Bowel Movement 06/12/18 06/12/18 # Bowel Movements 0 - Constitutional no acute distress - Routine HEENT Exam Head: Present: normocephalic, atraumatic Eye: Present: EOMI - Routine Neck Exam Present: supple - Routine Respiratory Exam Present: patient mechanically ventilated - Routine Abdominal Exam Present: soft, normoactive bowel sounds Comments: Morbidly obese - Urinary Catheter Management Indwelling Urethral Catheter Cath placed during this visit: yes Reason for continuing: Hourly intake/output Insertion date: 05/31/18 Insertion time: 14:00 Results - Labs CBC & Chem 7: 06/15/18 00:00 06/15/18 00:00 Laboratory Results - last 24 hr 06/14/18 06/14/18 06/14/18 10:30 16:45 17:36 WBC RBC Hgb Hct MCV MCH MCHC RDW Plt Count MPV Neut % (Auto) Lymph % (Auto) [place] % (Auto) Eos % (Auto) Baso % (Auto) Neut # (Auto) Lymph # (Auto) [place] # (Auto) Eos # (Auto) Baso # (Auto) WBC Differential Differential Comment PT INR APTT 44.8 H 41.8 H Sodium Potassium Chloride Carbon Dioxide Anion Gap BUN Creatinine Estimated GFR POC Glucose 400 H Random Glucose Calcium Phosphorus Magnesium 06/14/18 06/15/18 06/15/18 23:52 00:00 00:00 WBC 6.5 RBC 4.44 Hgb 12.1 Hct 39.0 MCV 87.7 MCH 27.2 MCHC 31.0 L RDW 17.1 Plt Count 166 MPV 8.5 Neut % (Auto) 89.8 H Lymph % (Auto) 4.8 L [place] % (Auto) 5.0 Eos % (Auto) 0.1 Baso % (Auto) 0.3 Neut # (Auto) 5.8 Lymph # (Auto) 0.3 L [place] # (Auto) 0.3 Eos # (Auto) 0.0 Baso # (Auto) 0.0 WBC Differential . Differential Comment Auto diff final PT 10.2 INR 1.0 APTT Sodium Potassium Chloride Carbon Dioxide Anion Gap BUN Creatinine Estimated GFR POC Glucose 381 H Random Glucose Calcium Phosphorus Magnesium 06/15/18 06/15/18 00:00 05:15 WBC RBC Hgb Hct MCV MCH MCHC RDW Plt Count MPV Neut % (Auto) Lymph % (Auto) [place] % (Auto) Eos % (Auto) Baso % (Auto) Neut # (Auto) Lymph # (Auto) [place] # (Auto) Eos # (Auto) Baso # (Auto) WBC Differential Differential Comment PT INR APTT Sodium 138 Potassium 5.2 H D Chloride 101 Carbon Dioxide 30.9 Anion Gap 6 BUN 27 H Creatinine 0.96 Estimated GFR 58 L POC Glucose 239 H Random Glucose 358 H D Calcium 8.3 L Phosphorus 3.6 Magnesium 2.4 D - Imaging Impressions Chest X-Ray 06/15/18 06:00 CONCLUSION: 1. Persistent left basilar consolidation/effusion. 2. Improving atelectatic changes in the right base. 3. Cardiomegaly. Stable position of life-support tubes. Assessment and Plan - Plan Assessment: - PEG consult- This is a 67 yo morbidly obese female who is currently admitted to [place] ICU and has been unable to be weaned from the ventilator, therefore surgery has been consulted for tracheostomy placement and our service has been consulted for PEG placement. Pt currently receiving nutrition through OG tube, Vital high protein with goal rate of 65 mL/hr. Of note, pt is also on heparin gtt for a-fib. 06/15/2018 patient has dysphagia she going to have a trach placement today, PEG tube was placed, she has gastritis, Ancef 1 g was given before the procedure Plan: N.p.o. for 6 hours then may use PEG tube for feeding as previously done Continue PPI for gastritis
[2018-06-15] MEDS ORDERED: fentaNYL Citrate Inj 100 MCG/2 ML Ampul IV.PUSH ONE (12:00)
[2018-06-15] MEDS ORDERED: Calcium Chloride Inj 0.34 GM in Sodium Chlor 0.9% Inj 100 ML IV.SIG ONE (12:30)
--- NOTE | 2018-06-15 12:33 | P.PCN ---
Date of procedure: 06/15/18 Pre-op diagnosis: Acute respiratory failure Post-op diagnosis: same Procedure: DATE: 06/15/2018 Fiberoptic bronchoscopy/diagnostic INDICATION: Placement of percutaneous tracheostomy/#[address] [place] [address] Bahena CONSENT Informed consent for procedure was obtained from healthcare proxy. DESCRIPTION OF THE PROCEDURE The patient was placed in supine position. Currently on midazolam drip at 8 mg on fentanyl drip at 150 mcg an hour. Patient received 11 mg of midazolam, 150 mcg of fentanyl and 100 mg rocuronium. Ventilator PRVC 16/600/1/6/100 percent. I entered the 8.0 ET tube with flexible bronchoscopy. Please see Dr. Bahena's note for tracheostomy placement. Bronchoscopy revealed insertion of angiocatheter into the trachea without complication. Guidewire was placed. Site was punched dilated and severely dilated 3. 8.0 Shiley proximal XLT percutaneous tracheostomy is placed directly into the trachea without complication. Direct visualized of the proximal revealed adequate position of tracheostomy. Scope was withdrawn. ESTIMATED BLOOD LOSS: Minimal COMPLICATIONS: No apparent complications. STAT chest x-ray pending at time of dictation
--- NOTE | 2018-06-15 12:53 | P.PNCC ---
Subjective Subjective Remarks/Hospital Course: Mrs. Scott is a 67-year-old female with past medical history significant for morbid obesity, type 2 diabetes, hypertension, probable COPD who was brought in by the family yesterday night because of increasing weakness and lethargic, this was ongoing for last 2 weeks got worse over the last 2 days. Unable to get detailed history from patient due to lethargy. ER workup showed patient had a urinary tract infection and sepsis, also chest x-ray showed bilateral interstitial infiltrates, and LLL consolidation. There is also evidence of acute kidney injury with creatinine up to 2.59, BUN 89. Intermittently having tachyarrhythmia/atrial flutter with rate in in 130s. Patient was admitted to the hospital service. At the time of hospitalist (Dr. Mckeon) evaluation patient was very lethargic and ABG showed a pH of 7.08 and a PCO2 of 91, PO2 was 70 on 5 L nasal cannula. Patient was immediately placed on BiPAP. Approximately after 45 minutes ABG was repeat showed only marginal improvement pH of 7.12 and PCO2 of 84. Patient was emergently transferred to the ICU and critical care was consulted I evaluated the patient in the ICU. She is currently on BiPAP 15/. Patient is lethargic, even though arousable she falls right back to sleep. Airway protection was questionable. With severe hypercarbic respiratory failure complicated with sepsis, metabolic encephalopathy and acute kidney failure, decision was made to intubate the patient. I endotracheally intubate the patient in placed on the mechanical ventilation. Prior to and post intubation patient heart rate remained in 130s. Hypotensive postintubation, stat 2 L fluid boluses given. Also started on Levophed to keep map above 65. Patient had been placed on Rocephin and will discontinue this and start renally dosed cefepime, add azithromycin for atypical coverage. ID consulted for questionable scabies and sepsis with shock 06/02: Remains critically ill but stabilizing more. ABG shows correction of severe hypercapnia. FiO2 remains at 50%. Urine output adequate BUN remains elevated creatinine slightly improved. Received treatment with permethrin 06/02: Currently afebrile. Bradycardic on the ventilator. Will adjust sedation to midazolam and fentanyl drips. Tolerating tube feeds at 30 cc an hour. XRT of the right foot ordered. 06/03 No events overnight. Sedated with Versed and Fentanyl drips. Afebrile. 06/04: Remains on midazolam drip at 4 mg an hour and fentanyl drip at 100 mcg an hour. Tolerating tube feeds. Currently afebrile. Failed spontaneous breathing trials today. 06/05: Ventilator settings unchanged. Remains on midazolam drip at 5 mg an hour and fentanyl drip at 100 mcg an hour. Tolerating tube feeds. We will reattempt spontaneous breathing trials today. 06/06 Patient is sedated with Fentanyl and versed drips and intubated. Afebrile. 06/07: Afebrile. Remains on midazolam drip at 5 mg an hour and fentanyl drip at 100 mcg an hour. MRI brain revealed no acute intracranial findings. Opens eyes. Not following commands currently. 06/08: Afebrile. Remains on midazolam drip. Opens eyes but not following commands currently. Tolerating tube feeds at goal. Positive BM. 06/09: Tolerated CPAP trials 8 hours yesterday. Not tolerating today. Opens eyes but not follows commands. Tube feeds at goal. Positive BM. Remains on midazolam and fentanyl drips. 06/10: Afebrile. Currently on CPAP trial. 16/8 at 45%. Eyes are open. Currently in A. fib rate controlled. Will start on heparin drip. 06/11: Patient became tachycardic with A. fib with RVR and CPAP trial. Attempted 15/6 at 45%. Eyes are open. Follows commands. 06/12: We will place on dexmedetomidine and attempt CPAP today. Watch for bradycardia.. Tolerating tube feeding. Tracheostomy with palliative care discussion planned for tomorrow Wednesday 06/13. 06/13: Fails CPAP trials. Family in agreement for percutaneous tracheostomy and percutaneous gastrostomy tube placement. Consult placed. Patient currently in sinus bradycardia. 06/14: Plan for percutaneous tracheostomy and percutaneous endoscopic gastrostomy tube placement in a.m. 06/15. FiO2 50% on CPAP trials currently. Tolerating tube feeds. N.p.o. after midnight with heparin drip to be held Subjective 06/15: Successful placement of #8 Shiley proximal XLT percutaneous tracheostomy Dr. Bahena. Status post PEG placement by Dr. Kent. No new issues currently. Hyperglycemic. Insulin detemir was held due to procedures. Off heparin drip. Remains in sinus bradycardia Objective Vital Signs / I&O: Vital Signs 06/14/18 13:00 06/14/18 13:01 06/14/18 13:30 Temperature Pulse Rate 53 L 54 L 61 Respiratory Rate 21 23 23 Blood Pressure 100/55 L 108/55 L Pulse Oximetry 91 L 92 L 93 L 06/14/18 14:00 06/14/18 14:30 06/14/18 15:00 Temperature Pulse Rate 54 L 64 55 L Respiratory Rate 20 19 20 Blood Pressure 107/53 L 116/57 L 110/53 L Pulse Oximetry 93 L 91 L 94 L 06/14/18 15:30 06/14/18 15:44 06/14/18 16:00 Temperature Pulse Rate 54 L 50 L 53 L Respiratory Rate 20 18 21 Blood Pressure 99/53 L 100/52 L Pulse Oximetry 93 L 95 92 L 06/14/18 16:31 06/14/18 17:00 06/14/18 17:01 Temperature Pulse Rate 50 L 50 L 52 L Respiratory Rate 18 16 16 Blood Pressure 92/46 L 103/53 L Pulse Oximetry 90 L 91 L 92 L 06/14/18 18:00 06/14/18 20:00 06/14/18 20:30 Temperature 98.9 F Pulse Rate 58 L 44 L Respiratory Rate 16 16 Blood Pressure 133/60 Pulse Oximetry 96 93 L 06/14/18 20:37 06/14/18 22:00 06/14/18 23:39 Temperature Pulse Rate 79 50 L Respiratory Rate 16 16 Blood Pressure Pulse Oximetry 91 L 06/14/18 23:43 06/15/18 00:00 06/15/18 02:00 Temperature 98.6 F Pulse Rate 82 53 L 89 Respiratory Rate 16 16 Blood Pressure 107/53 L Pulse Oximetry 96 06/15/18 03:24 06/15/18 04:00 06/15/18 04:23 Temperature 98.8 F Pulse Rate 62 58 L Respiratory Rate 16 16 16 Blood Pressure 106/55 L Pulse Oximetry 95 98 06/15/18 06:00 06/15/18 07:37 06/15/18 10:31 Temperature Pulse Rate 55 L 61 Respiratory Rate 16 16 Blood Pressure Pulse Oximetry 97 06/15/18 11:07 06/15/18 11:45 Temperature Pulse Rate 110 H Respiratory Rate 17 Blood Pressure Pulse Oximetry 94 L 94 L Intake & Output 06/14/18 06/15/18 06/15/18 18:59 06:59 18:59 Intake Total 1556 / 1556 1186 / 1186 Output Total 1050 / 1050 1500 / 1500 Balance 506 / 506 -314 / -314 Weight 165 kg Intake: IV 400 / 400 600 / 600 Heparin/D5W 25,000 U/250 mL 25, 250 / 250 50 / 50 000 unit In 250 ml @ Per Protocol 9 mls/hr IV.CONT TITRATE PRN Rx#:[id number] Versed Inj 50 mg In 50 ml @ 2 50 / 50 100 / 100 MG/HR 2 mls/hr IV.CONT TITRATE PRN Rx#:[id number] Maxipime Inj 2,000 MG In NS Inj 100 / 100 100 ML @ 200 mls/hr IV.SIG Q12H BECKY Rx#:[id number] Magnesium Sulfate 1 gm/D5W 100 100 / 100 100 / 100 ml Premix 100 ML @ 100 mls/hr IV.SIG Q1H BECKY Rx#:[id number] fentaNYL 10 mcg/mL Premix Drip 250 / 250 2,500 mcg In 250 ml @ 50 MCG/HR 5 mls/hr IV.SIG TITRATE PRN Rx #:[id number] Tube Feeding 756 / 756 386 / 386 Water Bolus Amount 400 / 400 200 / 200 Output: Urine 1500 / 1500 Urine Amount (Catheter) 1050 / 1050 Indwelling Urethral Catheter 1050 / 1050 Other: Date of Last Bowel Movement 06/12/18 06/12/18 # Bowel Movements 0 Result Diagrams: 06/15/18 00:00 06/15/18 00:00 Other Results: Microbiology 05/30/18 22:21 Blood - Peripheral Aerobic Blood Culture - Final No growth in 5 days 05/30/18 22:21 Blood - Peripheral Anaerobic Blood Culture - Final No growth in 5 days 05/30/18 22:21 Blood - Peripheral Aerobic Blood Culture - Final No growth in 5 days 05/30/18 22:21 Blood - Peripheral Anaerobic Blood Culture - Final No growth in 5 days 05/31/18 14:50 Wound - Abdominal Gram Stain - Final 05/31/18 14:50 Wound - Abdominal Wound Culture - Final S. aureus MRSA 05/31/18 13:08 Urine - Catheterized Urine Streptococcus pneumoniae Antigen ( M - Final Presumptive negative for streptococcus pneumoniae antigen, suggesting no current or recent infection. Infection due to Streptococcus pneumoniae cannot be ruled out since the antigen present in the sample may be below the detection limit of the test. 05/31/18 13:08 Urine - Catheterized Urine Legionella Antigen - Final Presumptive negative for Legionella pneumophila serogroup 1 antigen in urine, suggesting no recent or recurrent infection. Infection due to Legionella cannot be ruled out since other serogroups and species may cause disease, antigen may not be present in urine in early infection, and the level of antigen present in the urine may be below the detection limit of the test. 05/30/18 22:56 Clean Catch Urine Urine Culture - Final 50-100,000 cfu/mL mixed leesa (probable contaminants ) Imaging: Chest X-Ray 05/30/18 22:09 CONCLUSION: Cardiomegaly. Diffuse increased interstitial markings likely related to edema. Increased density at the left base with silhouetting of the left hemidiaphragm secondary to left base atelectasis, consolidation and/or effusion. Abdomen/Bladder Ultrasound 05/31/18 00:00 CONCLUSION: 1. No obstructive uropathy or other acute abnormality demonstrated. 2. Benign cyst of the right kidney. Abdomen/Pelvis CT 05/31/18 00:00 CONCLUSION: 1. Cholelithiasis. 2. Colonic diverticulosis without definitive evidence for diverticulitis. 3. Prominent uterus with hypodense 6 cm mass anteriorly likely reflecting a pedunculated fibroid. 4. Appendix is not visualized and potentially obscured by the uterine fibroid. 5. Large fat-containing left-sided anterior abdominal wall hernia. 6. Diffuse soft tissue edema in the inferior abdominal pannus. Head CT 05/31/18 00:00 CONCLUSION: 1. No acute intracranial abnormality. 2. Minimal paranasal sinus mucosal disease. Chest X-Ray 05/31/18 13:55 CONCLUSION: 1. Cardiomegaly with resolving interstitial edema and improving aeration in the left lung base. 2. Endotracheal tube appropriately positioned above the brittnee. Nasogastric tube is curled in the gastric fundus and the left IJ central venous catheter is identified. At the junction of the left and right brachiocephalic vein. Foot X-Ray 06/02/18 00:00 CONCLUSION: There is a destructive change at the distal aspect of the third distal phalanx at the tuft. Osteomyelitis needs be considered. 0.4 cm calcific density seen at the proximal lateral plantar aspect of the third digit. Chest X-Ray 06/02/18 06:00 CONCLUSION: 1. Stable tubes and lines. 2. Cardiomegaly with positive fluid balance. 3. Stable left and worsening right lower lung zone airspace disease. Chest X-Ray 06/03/18 06:00 CONCLUSION: Cardiomegaly with bilateral airspace disease greater in the right lung, unchanged. Chest X-Ray 06/04/18 00:00 CONCLUSION: No significant change Chest X-Ray 06/05/18 06:00 CONCLUSION: No significant change Chest X-Ray 06/06/18 06:00 CONCLUSION: Support apparatus unchanged. Bilateral mostly basilar airspace disease and cardiomegaly with effusions also not significantly changed considering differences in technique. Head MRI 06/07/18 00:00 CONCLUSION: 1. Senescent changes with mild periventricular ischemic white matter demyelination. 2. Otherwise, unremarkable MRI examination of the brain. Specifically, no evidence for acute infarction. 3. Paranasal sinus disease. Chest X-Ray 06/08/18 06:00 CONCLUSION: No significant change in bilateral mostly basilar and dependent airspace disease and possible mild edema. Endotracheal tube and nasogastric tube unchanged. Left central line in left brachiocephalic vein. Chest X-Ray 06/09/18 06:00 CONCLUSION: Stable bilateral airspace disease and pleural effusions. Endotracheal tube and nasogastric tube unchanged. Chest X-Ray 06/09/18 16:16 CONCLUSION: Interval placement of a right jugular central venous catheter which extends into the right atrium. No evidence of pneumothorax. Otherwise no change. Chest X-Ray 06/10/18 06:00 CONCLUSION: Considerable improvement left greater than right basilar consolidation and small effusions. Chest X-Ray 06/14/18 06:00 CONCLUSION: 1. Persistent left basilar consolidation/effusion. 2. Improving aeration in the right base. Chest X-Ray 06/15/18 06:00 CONCLUSION: 1. Persistent left basilar consolidation/effusion. 2. Improving atelectatic changes in the right base. 3. Cardiomegaly. Stable position of life-support tubes. Objective Remarks: GENERAL: 67-year-old female currently resting in bed status post percutaneous tracheostomy and percutaneous endoscopic gastrostomy tube placement SKIN: Cool and dry. Tinea cruris, axillary region and under the breasts. Excoriated pannus in back. Purple rash and excoriation bilateral lower extremity HEAD: Atraumatic. Normocephalic. No temporal wasting, or tenderness. EYES: Pupils equal, round and reactive to light. Extraocular movements are present EARS, NOSE AND THROAT: Edentulous. Mucous membranes dry. Orotracheally intubated NECK: Short and obese neck, supple, Right IJ is clean dry and intact. Percutaneous tracheostomy with fresh blood with no active bleeding #8 Shiley proximal XLT CARDIOVASCULAR: Diminished heart sounds secondary to body habitus. Bradycardic , RR No murmurs, rubs or gallops heard RESPIRATORY: Diminished breath sounds throughout due to body habitus. No wheezing ABDOMEN: Obese abdomen, soft, with multiple striae and excoriations. Hypoactive bowel sounds. PEG tube placement is clean dry and intact with fresh blood with no active bleeding. EXTREMITIES: Positive pedal edema. Has mild mottling both feet. Purple rash and excoriation bilateral lower extremity. Necrotic appearing right third toe. NEUROLOGICAL: Cranial nerves appear to be grossly intact. Positive gag and cough. Spontaneously moves extremities to stimulation. Currently spontaneously opens eyes. She is following commands at the present time when I examined her post tracheostomy and sedation has worn off. Assessment and Plan - Assessment and Plan Plan: NEURO/Psych: Acute severe encephalopathy secondary to severe sepsis/hypercarbia Depression disorder NOS Chronic benzodiazepine use On midazolam drip at 10 mg an hour and fentanyl drip at 250 mcg an hour for sedation. Daily sedation vacation. Goal of RASS -2 CT brain on admission revealed no acute intracranial findings 06/06 EEG, severe encephalopathy/epileptiform activity Acetaminophen 650 every 6 hours as needed fever Holding citalopram 20 mg daily/home medication for depression. Resume clinically indicated On lorazepam 0.5 mg at night as needed. Currently on 1 mg every 15 minutes for possible seizure activity? MRI brain revealed no acute intracranial abnormalities RESP: Acute respiratory failure/hypercarbic and hypoxemic Acute COPD exacerbation Probable community-acquired pneumonia On PRVC 16/600/1/6/100 percent CPAP trials as tolerated Ventilator bundle -Albuterol/ipratropium aerosols every 4 hours scheduled and albuterol aerosols every 2 hours as needed Continue IV methylprednisolone succinate 20 mg daily. Should be able to wean off the next couple days Status post percutaneous tracheostomy 06/[address] Bahena CV: Atrial flutter with rapid ventricular response now in sinus bradycardia Sinus bradycardia currently sinus tachycardia History of essential hypertension History of dyslipidemia Off all vasopressors -Echo showed EF 50-55% -Monitor HR and BP keep MAP>65mmHg Currently on pravastatin 80 mg daily, hospital substitution for simvastatin 40 mg daily which is her home medication On digoxin 0.125 mg daily. Check level in a.m. 06/14 was 1.0. Recheck 06/16 AM Heparin drip currently on hold secondary to PEG and trach. Resume anticoagulation GI: Hypoalbuminemia Cholelithiasis Sigmoid diverticulosis Abdominal wall hernia/left-sided Hypoalbuminemia Currently holding tube feeds with vital high-protein goal 65 cc an hour. Restart X hours post PEG tube placement according to GIs note. Lansoprazole for GI prophylaxis Docusate sodium/senna 1 tablet twice daily for bowel regimen CT abdomen/pelvis revealed cholelithiasis, sigmoid colonic diverticulosis, and abdominal wall hernia Status post percutaneous endoscopic gastrostomy tube placement Dr. Patel 06/15 Renal/CLAIMS SPECIALIST/: Acute kidney injury resolving 6 cm uterine fibroid Right renal cyst -Monitor renal function, I/O's. avoid nephrotoxins -Renal ultrasound -right renal cyst otherwise no signs of obstruction. -Nephrology has followed, Dr. Narvaez Free water 200ml Q6 ID: UTI Wound cultures positive for MRSA -ID following, c 06/13 discontinued cefepime and vancomycin per IDs recommendation. Azithromycin discontinued 06/03 ceftaroline discontinued 06/06 Monitor or signs of infections (Fever, WBC) Right 3rd toe and other skin lesions/cellulitis on LLE likely sources of infection Xray foot: There is a destructive change at the distal aspect of the third distal phalanx at the tuft. 0.4 cm calcific density seen at the proximal lateral plantar aspect of the third digit. 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 CBC normal FEN/ENDO: Diabetes mellitus Holding home medications Metformin 1000 mg twice daily and glipizide at 5 mg twice daily. TSH 0.97 Insulin detemir 32 units BID and SSI with Novolin R q. 6 hour Accu-Cheks. Hold insulin detemir while n.p.o. MSK: Elevated BMI Necrotic right third toe. Xray foot: There is a destructive change at the distal aspect of the third distal phalanx at the tuft. Podiatry is following, recommend amputation when clinically stable Wt loss encouraged PT evaluate and treat PROPH: -Bilateral lower extremity SCDs. Heparin drip currently on hold. Resume anticoagulants 24 hours post procedures. Lansoprazole 30 mg daily LINES: -Left IJ central line placed 05/31/18 discontinued 06/09. Right IJ CVL placed and continue with very poor IV access Palliative care is following. Discussed with daughter and son at bedside. Care plan discussed and all questions answered. Level 3 follow-up
--- NOTE | 2018-06-15 13:12 | P.PCN ---
Date of procedure: 06/15/18 Pre-op diagnosis: Respiratory failure Post-op diagnosis: same Procedure: Percutaneous bronchoscopic guided tracheostomy Bronchoscopist: Dr. Rouse EBL: 5 cc Procedure in detail: The patient remained in her intensive care unit bed. She was placed in supine position with the neck slightly hyperextended. The patient was administered sedative and paralytic medications per Dr. Rouse of intensive care. The anterior neck was prepped and draped in usual sterile fashion. A 1 cm incision was made vertically about 1 fingerbreadth superior to the sternal notch. Minimal blunt dissection was carried out. The bronchoscope was inserted down the endotracheal tube which was withdrawn past the site of the anticipated entry into the trachea approximately below the second tracheal ring. The large-bore needle and catheter were inserted through the anterior trachea and there was air aspirated into the syringe. The wire fed easily and this was also visualized via the bronchoscope. The tract was then serially dilated with the punch dilator and the Blue Rhino dilator. Due the patient's obesity, a #8 proximal XLT tracheostomy was chosen and was placed over the wire and easily entered the trachea. This was also visualized bronchoscopically. The bronchoscope was inserted down the trach tube and the position again confirmed. The cuff was inflated and the apparatus switched to the trach tube. There was adequate tidal volumes. The trach was sutured in place with 4 separate 2-0 Prolene sutures. A dressing and trach collar was applied. The patient tolerated procedure well and remained in her intensive care unit bed. Anesthesia: MAC Surgeon: Luis Bahena Estimated blood loss (mL): 20 Pathology: other Condition: critical Disposition: ICU
--- NOTE | 2018-06-15 14:21 | XR ---
EXAM DATE: 06/15/2018 1:22 PM EDT AGE/SEX: 67 years / Female INDICATIONS: Status post trach placement. CLINICAL DATA: This is the patient's subsequent encounter. Patient reports that signs and symptoms h ave been present for 1 week and indicates a pain score of Nonresponsive. MEDICAL/SURGICAL HISTORY: . Hypertension. Depression. Diabetes. Hypertriglyceridemia None. COMPARISON: C, CHEST 1V SINGLE AP, 06/15/2018. . FINDINGS: A single AP supine portable view of the chest was obtained and again demonstrates an extra large trac heostomy tube in place with the tip approximately 3 cm above the brittnee. The right internal jugular c entral venous line remains in place. A nasogastric tube is not well visualized on the current study. The heart size is moderately enlarged. There is hazy perihilar and bibasilar opacities with no defini te consolidation. Left costophrenic angle again appears blunted. The left hemidiaphragm appears obscu red. CONCLUSION: 1. Placement of extra large tracheostomy tube. 2. Persistent opacity at the left lung base which could represent infiltrate and/or effusion. 3. Cardiomegaly with hazy perihilar opacities. Electronically signed by: Adrian Castaneda MD 06/15/2018 2:19 PM EDT
--- NOTE | 2018-06-15 15:38 | XR ---
EXAM DATE: 06/15/2018 1:28 PM EDT AGE/SEX: 67 years / Female INDICATIONS: Post G-tube placement. CLINICAL DATA: This is the patient's subsequent encounter. Patient reports that signs and symptoms h ave been present for 1 week and indicates a pain score of Nonresponsive. MEDICAL/SURGICAL HISTORY: . Hypertension. Depression. Diabetes. Hypertriglyceridemia None. COMPARISON: [facility] [place], CT ABDOMEN & PELVIS W/O CONTRAST, 05/31/2018. . FINDINGS: The examination is markedly limited due to obesity. Gastric tube is identified within the expected r egion of the stomach in the left upper quadrant. If there is concern for leak contrast would be neces dragan. No bowel obstruction is noted. Degenerative changes and scoliosis of the lumbar spine are noted . Unremarkable limited examination of the abdomen as described above. Electronically signed by: Jose Goldstein MD 06/15/2018 3:36 PM EDT
[2018-06-15] MEDS ORDERED: Lidocaine PF 1% Inj 5 ML Syringe INFILTRATN ONE (15:49)
[2018-06-15] MEDS: Nystatin 100,000 UNITS/GM Powder 15 GM Bottle TOPICAL SCH ×2 (18:47→20:27)
[2018-06-15] MEDS: Sodium Chloride 0.45 % Inj 1,000 ML IV.CONT SCH ×2 (19:38→22:27)
[2018-06-15] MEDS: Hypromellose 0.3% Opth Gel 10 GM Bottle EACH EYE SCH (20:26)
[2018-06-16] MEDS: Oral Hygiene Kit OROPHARYNG SCH ×4 (00:14→15:28)
[2018-06-16] MEDS: Insulin NovoLIN Regular Correctional Sugar Inj SQ SCH ×4 (00:14→18:16)
[2018-06-16] MEDS: Midazolam 50 MG/50 ML Inj 50 MG/50 ML BAG IV.CONT PRN ×4 (03:33→15:50)
[2018-06-16 04:23] LABS: Baso % (Auto) 0.2 % (0.0-2.0); Eos % (Auto) 0.1 % (0.0-4.0); Hematocrit 39.3 % (35.0-46.0); Hemoglobin 12.3 gm/dL (11.6-15.3); Lymph # (Auto) 0.4 th/mm3 (1.0-4.8); Lymph % (Auto) 5.5 % (9.0-44.0); Mean Corpuscular HGB Conc 31.4 % (32.0-36.0); Mean Corpuscular Hemoglobin 27.3 pg (27.0-34.0); Mean Corpuscular Volume 87.1 fL (80.0-100.0); Mean Platelet Volume 8.4 fL (7.0-11.0); Mono # (Auto) 0.4 th/mm3 (0.0-0.9); Mono % (Auto) 6.2 % (0.0-8.0); Neut # (Auto) 6.1 th/mm3 (1.8-7.7); Platelet Count 163 th/mm3 (150-450); Red Blood Count 4.52 mil/mm3 (4.00-5.30); Red Cell Distribution Width 17.4 % (11.6-17.2)
[2018-06-16 04:48] LABS: Alanine Aminotransferase 33 U/L (10-53); Albumin 2.4 g/dL (3.4-5.0); Anion Gap 7 meq/L (5-15); Aspartate Aminotransferase 20 U/L (15-37); Blood Urea Nitrogen 23 mg/dL (7-18); Calcium 8.9 mg/dL (8.5-10.1); Carbon Dioxide 31.3 meq/L (21.0-32.0); Chloride 102 meq/L (98-107); Glomerular Filtration Rate 76 mL/min (>89); Glucose,Random 198 mg/dL (74-106); Magnesium 2.1 mg/dL (1.5-2.5); Phosphorus 3.8 mg/dL (2.5-4.9); Potassium 5.1 meq/L (3.5-5.1); Sodium 140 meq/L (136-145)
[2018-06-16 05:06] LABS: Alkaline Phosphatase 64 U/L (45-117); Digoxin 1.2 ng/mL (0.8-2.0)
[2018-06-16] MEDS: fentaNYL 10 mcg/mL Premix Drip 2,500 MCG/250 ML BAG IV.SIG PRN ×2 (05:28→12:04)
[2018-06-16] MEDS: Senna/Docusate Sodium 8.6/50 MG Tablet PO SCH ×2 (08:27→21:36)
[2018-06-16] MEDS: Digoxin 125 MCG Tablet PO SCH (08:27)
[2018-06-16] MEDS: Nystatin 100,000 UNITS/GM Powder 15 GM Bottle TOPICAL SCH ×3 (08:28→21:35)
[2018-06-16] MEDS: Insulin Detemir Inj 1,000 UNIT/10 ML Vial SQ SCH ×2 (08:28→21:36)
[2018-06-16] MEDS: Mupirocin 2% Nasal Oint Topical Syringe EACH NARE SCH ×2 (08:28→21:36)
[2018-06-16] MEDS: Chlorhexidine 0.12% Oral Kit 15 ML UDC OROPHARYNG SCH ×2 (08:29→21:37)
--- NOTE | 2018-06-16 10:08 | P.PNGI ---
Subjective Interval history: Pt on sedation, unresponsive. Remains on ventilator, tracheostomy. PEG site with no active drainage, covered with clean and dry gauze. Physical Exam Vital signs: Vital Signs 06/15/18 10:31 06/15/18 11:07 06/15/18 11:45 Temperature Pulse Rate 110 H Respiratory Rate 16 17 Blood Pressure Pulse Oximetry 94 L 94 L 06/15/18 12:00 06/15/18 14:00 06/15/18 15:26 Temperature 99.0 F Pulse Rate 134 H 58 L Respiratory Rate 18 16 Blood Pressure 151/71 H Pulse Oximetry 93 L 06/15/18 15:30 06/15/18 16:00 06/15/18 18:00 Temperature 98.0 F Pulse Rate 47 L 87 46 L Respiratory Rate 16 16 Blood Pressure 126/56 L Pulse Oximetry 06/15/18 20:00 06/15/18 20:12 06/15/18 20:16 Temperature 98.5 F Pulse Rate 45 L 46 L Respiratory Rate 16 16 16 Blood Pressure 143/66 H Pulse Oximetry 96 100 06/15/18 22:00 06/15/18 23:49 06/16/18 00:00 Temperature 98.4 F Pulse Rate 44 L 43 L 53 L Respiratory Rate 17 18 Blood Pressure 115/56 L Pulse Oximetry 100 98 06/16/18 02:00 06/16/18 04:00 06/16/18 04:27 Temperature 97.6 F Pulse Rate 44 L 51 L 62 Respiratory Rate 16 16 Blood Pressure 131/61 Pulse Oximetry 97 97 06/16/18 06:00 06/16/18 08:37 Temperature Pulse Rate 51 L 58 L Respiratory Rate 16 Blood Pressure Pulse Oximetry 97 Intake & Output 06/15/18 06/16/18 06/16/18 18:59 06:59 18:59 Intake Total 150 / 150 2818 / 2818 Output Total 2200 / 2200 1600 / 1600 Balance -2049 / -0 1218 / 1218 Weight 149 kg Intake: IV 150 / 150 2650 / 2650 Versed Inj 50 mg In 50 ml @ 2 150 / 150 150 / 150 MG/HR 2 mls/hr IV.CONT TITRATE PRN Rx#:[id number] 1/2 Normal Saline Inj 1,000 ML 1999 / 1999 @ 20 mls/hr IV.CONT .Q24H BECKY Rx#:[id number] fentaNYL 10 mcg/mL Premix Drip 500 / 500 2,500 mcg In 250 ml @ 50 MCG/HR 5 mls/hr IV.SIG TITRATE PRN Rx #:[id number] Oral 0 / 0 Tube Feeding 168 / 168 Tube Irrigant 0 / 0 Water Bolus Amount 0 / 0 Output: Urine 1600 / 1600 Stool 0 / 0 Urine/Stool Mix 0 / 0 Urine Amount (Catheter) 2199 / 0 Indwelling Urethral Catheter 2199 / 2199 Other: Date of Last Bowel Movement 06/12/18 06/13/18 # Bowel Movements 0 # Incontinent Bowel Movements 0 - Constitutional no acute distress - Routine HEENT Exam Head: Present: normocephalic, atraumatic - Routine Abdominal Exam Present: soft, normoactive bowel sounds Comments: Morbidly obese. PEG clamped - Urinary Catheter Management Indwelling Urethral Catheter Cath placed during this visit: yes Reason for continuing: Hourly intake/output Insertion date: 05/31/18 Insertion time: 14:00 Results - Labs CBC & Chem 7: 06/16/18 03:18 06/16/18 03:18 Laboratory Results - last 24 hr 06/15/18 06/15/18 06/15/18 13:08 19:39 22:25 WBC RBC Hgb Hct MCV MCH MCHC RDW Plt Count MPV Neut % (Auto) Lymph % (Auto) [place] % (Auto) Eos % (Auto) Baso % (Auto) Neut # (Auto) Lymph # (Auto) [place] # (Auto) Eos # (Auto) Baso # (Auto) WBC Differential Differential Comment Sodium Potassium 5.2 H Chloride Carbon Dioxide Anion Gap BUN Creatinine Estimated GFR POC Glucose 133 H 247 H Random Glucose Calcium Phosphorus Magnesium Total Bilirubin AST ALT Alkaline Phosphatase Total Protein Albumin Digoxin 06/15/18 06/16/18 06/16/18 23:36 03:18 03:18 WBC 7.0 RBC 4.52 Hgb 12.3 Hct 39.3 MCV 87.1 MCH 27.3 MCHC 31.4 L RDW 17.4 H Plt Count 163 MPV 8.4 Neut % (Auto) 88.0 H Lymph % (Auto) 5.5 L [place] % (Auto) 6.2 Eos % (Auto) 0.1 Baso % (Auto) 0.2 Neut # (Auto) 6.1 Lymph # (Auto) 0.4 L [place] # (Auto) 0.4 Eos # (Auto) 0.0 Baso # (Auto) 0.0 WBC Differential . Differential Comment Auto diff final Sodium 140 Potassium 5.1 Chloride 102 Carbon Dioxide 31.3 Anion Gap 7 BUN 23 H Creatinine 0.76 Estimated GFR 76 L POC Glucose 226 H Random Glucose 198 H D Calcium 8.9 Phosphorus 3.8 Magnesium 2.1 Total Bilirubin 0.4 AST 20 ALT 33 Alkaline Phosphatase 64 Total Protein 6.0 L Albumin 2.4 L Digoxin 1.2 06/16/18 06:20 WBC RBC Hgb Hct MCV MCH MCHC RDW Plt Count MPV Neut % (Auto) Lymph % (Auto) [place] % (Auto) Eos % (Auto) Baso % (Auto) Neut # (Auto) Lymph # (Auto) [place] # (Auto) Eos # (Auto) Baso # (Auto) WBC Differential Differential Comment Sodium Potassium Chloride Carbon Dioxide Anion Gap BUN Creatinine Estimated GFR POC Glucose 186 H Random Glucose Calcium Phosphorus Magnesium Total Bilirubin AST ALT Alkaline Phosphatase Total Protein Albumin Digoxin - Imaging Impressions Abdomen X-Ray 06/15/18 00:00 CONCLUSION: Chest X-Ray 06/15/18 00:00 CONCLUSION: 1. Placement of extra large tracheostomy tube. 2. Persistent opacity at the left lung base which could represent infiltrate and/or effusion. 3. Cardiomegaly with hazy perihilar opacities. Assessment and Plan - Plan Assessment: - PEG consult- This is a 67 yo morbidly obese female who is currently admitted to [facility] and has been unable to be weaned from the ventilator, therefore surgery has been consulted for tracheostomy placement and our service has been consulted for PEG placement. Pt currently receiving nutrition through OG tube, Vital high protein with goal rate of 65 mL/hr. Of note, pt is also on heparin gtt for a-fib. 06/15/2018 patient has dysphagia she going to have a trach placement today, PEG tube was placed, she has gastritis, Ancef 1 g was given before the procedure (06/16) Pt S/P PEG placement yesterday, PEG clamped this morning. No active drainage, covered with clean and dry gauze. Plan: Dietary recommendations- Vital High Protein @ 65 mL/hr Flush PEG q6hrs and after feedings and medication Our service will sign off, please reconsult as needed Have pt follow up with GI after DC Pt has been seen and examined by myself and Dr. Patel and this note is written on his behalf
[2018-06-16] MEDS: Collagenase Oint 30 GM Tube TOPICAL SCH (11:36)
--- NOTE | 2018-06-16 17:34 | P.DIET ---
Nutritional Evaluation Type of nutrition evaluation: follow-up Nutrition consult regarding: Tube Feeding Nutrition screening: [facility] [place] Scre[place]: 06/02/18 [facility] [place] TF'ing Objective - Diagnosis Acute Kidney Injury, UTI - Objective % IBW: 242 (145#) Body Weight Used for Calculations: IBW (66kg (Per SCCM/ASPEN guidelines)) Energy Needs - Lower Range (kCal/kg): 22 Energy Needs - Upper Range (kCal/kg): 25 Lower Limit kCal/kg (kCals): 1,450 Upper Limit kCal/kg (kCals): 1,650 Lower Limit Protein Factor (Grams per Kg): 2.0 Upper Limit Protein Factor (Grams per Kg): 2.5 Lower Protein Needs (Protein): 132 Upper Protein Needs (Protein): 165 Dietitian Reviewed in Medical Record: Curent medications, Intake & Output, Labs , Medical history, Tube feeding Diet Order: TF Only Objective Comments: Nutritional needs based on SCCM and ASPEN Guidelines for critically ill patients w/BMI's 30 and greater PMH: Morbid Obesity, DM-2, HTN, Probable COPD, Depression Meds include: Fentanyl, Versed, Levemir, Novolin SS Labs include: Glu 198, POC Glu 186, 145, 136 Assessment Assessment: Pt continues to be at nutritional risk r/t current clinical status. Pt s/p trach and PEG 06/15. TF Vital High Protein restarted. Noted elevated glucose level while pt NPO, Levemir not given. Vital High Protein at goal rate of 65 ml/ hr will provide 1560kcals, 137g PRO, 1304mls fluid, and 175g CHO which is adequate to meet pt's nutritional needs at this time. Will continue to monitor clinical course, TF tolerance. Recommendations: TF Vital High Protein with goal rate 65 ml/hr Dietitian to Monitor: Lab values, Glucose level, Intake & Output, Tube feeding tolerance, Weight change, Medical course
[2018-06-16] MEDS ORDERED: Haloperidol Inj 5 MG/ML Ampul IV.PUSH PRN (18:26)
[2018-06-16] MEDS ORDERED: Labetalol HCl Inj 100 MG/20 ML Vial IV.PUSH PRN (18:28)
--- NOTE | 2018-06-16 18:35 | P.PNCC ---
Subjective Subjective Remarks/Hospital Course: Mrs. Scott is a 67-year-old female with past medical history significant for morbid obesity, type 2 diabetes, hypertension, probable COPD who was brought in by the family yesterday night because of increasing weakness and lethargic, this was ongoing for last 2 weeks got worse over the last 2 days. Unable to get detailed history from patient due to lethargy. ER workup showed patient had a urinary tract infection and sepsis, also chest x-ray showed bilateral interstitial infiltrates, and LLL consolidation. There is also evidence of acute kidney injury with creatinine up to 2.59, BUN 89. Intermittently having tachyarrhythmia/atrial flutter with rate in in 130s. Patient was admitted to the hospital service. At the time of hospitalist (Dr. Mckeon) evaluation patient was very lethargic and ABG showed a pH of 7.08 and a PCO2 of 91, PO2 was 70 on 5 L nasal cannula. Patient was immediately placed on BiPAP. Approximately after 45 minutes ABG was repeat showed only marginal improvement pH of 7.12 and PCO2 of 84. Patient was emergently transferred to the ICU and critical care was consulted I evaluated the patient in the ICU. She is currently on BiPAP 15/. Patient is lethargic, even though arousable she falls right back to sleep. Airway protection was questionable. With severe hypercarbic respiratory failure complicated with sepsis, metabolic encephalopathy and acute kidney failure, decision was made to intubate the patient. I endotracheally intubate the patient in placed on the mechanical ventilation. Prior to and post intubation patient heart rate remained in 130s. Hypotensive postintubation, stat 2 L fluid boluses given. Also started on Levophed to keep map above 65. Patient had been placed on Rocephin and will discontinue this and start renally dosed cefepime, add azithromycin for atypical coverage. ID consulted for questionable scabies and sepsis with shock 06/02: Remains critically ill but stabilizing more. ABG shows correction of severe hypercapnia. FiO2 remains at 50%. Urine output adequate BUN remains elevated creatinine slightly improved. Received treatment with permethrin 06/02: Currently afebrile. Bradycardic on the ventilator. Will adjust sedation to midazolam and fentanyl drips. Tolerating tube feeds at 30 cc an hour. XRT of the right foot ordered. 06/03 No events overnight. Sedated with Versed and Fentanyl drips. Afebrile. 06/04: Remains on midazolam drip at 4 mg an hour and fentanyl drip at 100 mcg an hour. Tolerating tube feeds. Currently afebrile. Failed spontaneous breathing trials today. 06/05: Ventilator settings unchanged. Remains on midazolam drip at 5 mg an hour and fentanyl drip at 100 mcg an hour. Tolerating tube feeds. We will reattempt spontaneous breathing trials today. 06/06 Patient is sedated with Fentanyl and versed drips and intubated. Afebrile. 06/07: Afebrile. Remains on midazolam drip at 5 mg an hour and fentanyl drip at 100 mcg an hour. MRI brain revealed no acute intracranial findings. Opens eyes. Not following commands currently. 06/08: Afebrile. Remains on midazolam drip. Opens eyes but not following commands currently. Tolerating tube feeds at goal. Positive BM. 06/09: Tolerated CPAP trials 8 hours yesterday. Not tolerating today. Opens eyes but not follows commands. Tube feeds at goal. Positive BM. Remains on midazolam and fentanyl drips. 06/10: Afebrile. Currently on CPAP trial. 16/8 at 45%. Eyes are open. Currently in A. fib rate controlled. Will start on heparin drip. 06/11: Patient became tachycardic with A. fib with RVR and CPAP trial. Attempted 15/6 at 45%. Eyes are open. Follows commands. 06/12: We will place on dexmedetomidine and attempt CPAP today. Watch for bradycardia.. Tolerating tube feeding. Tracheostomy with palliative care discussion planned for tomorrow Wednesday 06/13. 06/13: Fails CPAP trials. Family in agreement for percutaneous tracheostomy and percutaneous gastrostomy tube placement. Consult placed. Patient currently in sinus bradycardia. 06/14: Plan for percutaneous tracheostomy and percutaneous endoscopic gastrostomy tube placement in a.m. 06/15. FiO2 50% on CPAP trials currently. Tolerating tube feeds. N.p.o. after midnight with heparin drip to be held Subjective 06/15: Successful placement of #8 Shiley proximal XLT percutaneous tracheostomy Dr. Bahena. Status post PEG placement by Dr. Kent. No new issues currently. Hyperglycemic. Insulin detemir was held due to procedures. Off heparin drip. Remains in sinus bradycardia 06/16: s/p trach yesterday. very agitated when awakened. becomes hypertensive. Objective Vital Signs / I&O: Vital Signs 06/15/18 20:00 06/15/18 20:12 06/15/18 20:16 Temperature 36.9 C Pulse Rate 45 L 46 L Respiratory Rate 16 16 16 Blood Pressure 143/66 H Pulse Oximetry 96 100 06/15/18 22:00 06/15/18 23:49 06/16/18 00:00 Temperature 36.9 C Pulse Rate 44 L 43 L 53 L Respiratory Rate 17 18 Blood Pressure 115/56 L Pulse Oximetry 100 98 06/16/18 01:31 06/16/18 02:00 06/16/18 02:01 Temperature Pulse Rate 47 L 44 L 45 L Respiratory Rate 16 16 16 Blood Pressure 119/58 L Pulse Oximetry 94 L 94 L 94 L 06/16/18 02:30 06/16/18 03:00 06/16/18 03:01 Temperature Pulse Rate 44 L 45 L 45 L Respiratory Rate 16 16 16 Blood Pressure 129/60 136/64 Pulse Oximetry 94 L 96 95 06/16/18 03:31 06/16/18 04:00 06/16/18 04:01 Temperature 36.4 C Pulse Rate 57 L 64 63 Respiratory Rate 20 16 16 Blood Pressure 143/65 H 131/61 131/61 Pulse Oximetry 98 97 97 06/16/18 04:27 06/16/18 04:31 06/16/18 05:00 Temperature Pulse Rate 62 62 54 L Respiratory Rate 16 16 16 Blood Pressure 141/62 H Pulse Oximetry 97 98 94 L 06/16/18 05:01 06/16/18 05:31 06/16/18 06:00 Temperature Pulse Rate 53 L 55 L 51 L Respiratory Rate 16 16 16 Blood Pressure 110/53 L 122/57 L 126/60 Pulse Oximetry 95 96 94 L 06/16/18 06:31 06/16/18 07:00 06/16/18 07:01 Temperature Pulse Rate 51 L 58 L 59 L Respiratory Rate 16 16 16 Blood Pressure 125/60 137/61 Pulse Oximetry 96 96 96 06/16/18 07:30 06/16/18 08:00 06/16/18 08:01 Temperature 36.4 C L Pulse Rate 61 63 64 Respiratory Rate 16 16 16 Blood Pressure 134/64 133/61 Pulse Oximetry 95 96 95 06/16/18 08:31 06/16/18 08:37 06/16/18 09:00 Temperature Pulse Rate 56 L 58 L 64 Respiratory Rate 16 16 16 Blood Pressure 141/65 H Pulse Oximetry 96 97 96 06/16/18 09:01 06/16/18 09:31 06/16/18 10:00 Temperature Pulse Rate 64 62 62 Respiratory Rate 16 16 16 Blood Pressure 122/58 L 98/53 L Pulse Oximetry 96 95 96 06/16/18 10:01 06/16/18 10:30 06/16/18 11:00 Temperature Pulse Rate 61 62 60 Respiratory Rate 16 16 16 Blood Pressure 108/54 L 104/52 L Pulse Oximetry 95 96 95 06/16/18 11:01 06/16/18 11:31 06/16/18 12:00 Temperature 36.6 C Pulse Rate 61 61 57 L Respiratory Rate 16 16 16 Blood Pressure 87/48 L 123/58 L Pulse Oximetry 95 95 94 L 06/16/18 12:01 06/16/18 12:26 06/16/18 12:29 Temperature Pulse Rate 58 L 57 L 57 L Respiratory Rate 16 16 16 Blood Pressure 121/56 L Pulse Oximetry 94 L 94 L 94 L 06/16/18 12:30 06/16/18 14:00 06/16/18 15:42 Temperature Pulse Rate 61 61 Respiratory Rate 16 Blood Pressure 110/53 L Pulse Oximetry 94 L Intake & Output 06/15/18 06/16/18 06/16/18 18:59 06:59 18:59 Intake Total 150 / 150 2818 / 2818 350 / 350 Output Total 2200 / 2200 1600 / 1600 Balance -2050 / -2050 1218 / 1218 350 / 350 Weight 149 kg Intake: IV 150 / 150 2650 / 2650 350 / 350 Versed Inj 50 mg In 50 ml @ 2 150 / 150 150 / 150 100 / 100 MG/HR 2 mls/hr IV.CONT TITRATE PRN Rx#:[id number] 1/2 Normal Saline Inj 1,000 ML 1999 / 1999 @ 20 mls/hr IV.CONT .Q24H BECKY Rx#:[id number] fentaNYL 10 mcg/mL Premix Drip 500 / 500 250 / 250 2,500 mcg In 250 ml @ 50 MCG/HR 5 mls/hr IV.SIG TITRATE PRN Rx #:[id number] Oral 0 / 0 Tube Feeding 168 / 168 Tube Irrigant 0 / 0 Water Bolus Amount 0 / 0 Output: Urine 1600 / 1600 Stool 0 / 0 Urine/Stool Mix 0 / 0 Urine Amount (Catheter) 2199 Indwelling Urethral Catheter 2199 Other: Date of Last Bowel Movement 06/12/18 06/13/18 06/13/18 # Bowel Movements 0 # Incontinent Bowel Movements 0 Result Diagrams: 06/16/18 03:18 06/16/18 03:18 Objective Remarks: GENERAL: 67-year-old female currently resting in bed status post percutaneous tracheostomy and percutaneous endoscopic gastrostomy tube placement SKIN: Cool and dry. Tinea cruris, axillary region and under the breasts. Excoriated pannus in back. Purple rash and excoriation bilateral lower extremity HEAD: Atraumatic. Normocephalic. No temporal wasting, or tenderness. EYES: Pupils equal, round and reactive to light. Extraocular movements are present EARS, NOSE AND THROAT: Edentulous. Mucous membranes moist. s/p trach. NECK: Short and obese neck, supple, Right IJ is clean dry and intact. Percutaneous tracheostomy with fresh blood with no active bleeding #8 Shiley proximal XLT CARDIOVASCULAR: Diminished heart sounds secondary to body habitus. Bradycardic , RR No murmurs, rubs or gallops heard RESPIRATORY: Diminished breath sounds throughout due to body habitus. No wheezing ABDOMEN: Obese abdomen, soft, with multiple striae and excoriations. PEG tube placement is clean dry and intact with fresh blood with no active bleeding. EXTREMITIES: Positive pedal edema. Has mild mottling both feet. Purple rash and excoriation bilateral lower extremity. Necrotic appearing right third toe. NEUROLOGICAL: Cranial nerves appear to be grossly intact. Positive gag and cough. Spontaneously moves extremities to stimulation. Currently spontaneously opens eyes. somnolent but arousable. intermittently follows commands. Assessment and Plan - Assessment and Plan Plan: NEURO/Psych: Acute severe encephalopathy secondary to severe sepsis/hypercarbia Agitated delirium Depression disorder NOS Chronic benzodiazepine use versed and fentanyl for sedation. will d/c these. continue precedex as needed add seroquel 50mg po q8h for agitated add breakthrough haldol 5mg iv q1h prn for agitation add scheduled oxycodone 10mg po q4h for pain. Daily sedation vacation. Goal of RASS 0 CT brain on admission revealed no acute intracranial findings 06/06 EEG, severe encephalopathy/epileptiform activity Acetaminophen 650 every 6 hours as needed fever Holding citalopram 20 mg daily/home medication for depression. Resume clinically indicated On lorazepam 0.5 mg at night as needed. Currently on 1 mg every 15 minutes for possible seizure activity? MRI brain revealed no acute intracranial abnormalities RESP: Acute respiratory failure/hypercarbic and hypoxemic Acute COPD exacerbation Probable community-acquired pneumonia CPAP trials as tolerated Ventilator bundle -Albuterol/ipratropium aerosols every 4 hours scheduled and albuterol aerosols every 2 hours as needed Continue IV methylprednisolone succinate 20 mg daily. Should be able to wean off the next couple days Status post percutaneous tracheostomy 06/[address] Bahena CV: Atrial flutter with rapid ventricular response now in sinus bradycardia Sinus bradycardia currently sinus tachycardia History of essential hypertension History of dyslipidemia Off all vasopressors -Echo showed EF 50-55% -Monitor HR and BP keep MAP>65mmHg Currently on pravastatin 80 mg daily, hospital substitution for simvastatin 40 mg daily which is her home medication On digoxin 0.125 mg daily. Check level in a.m. 06/14 was 1.0. Recheck 06/16 AM and AM 06/22 Heparin drip currently on hold secondary to PEG and trach. Resume anticoagulation GI: Hypoalbuminemia Cholelithiasis Sigmoid diverticulosis Abdominal wall hernia/left-sided Hypoalbuminemia Currently holding tube feeds with vital high-protein goal 65 cc an hour. Restart post PEG tube placement according to GIs note. Lansoprazole for GI prophylaxis Docusate sodium/senna 1 tablet twice daily for bowel regimen CT abdomen/pelvis revealed cholelithiasis, sigmoid colonic diverticulosis, and abdominal wall hernia Status post percutaneous endoscopic gastrostomy tube placement Dr. Patel 06/15 Renal/[employer]/: Acute kidney injury resolving 6 cm uterine fibroid Right renal cyst -Monitor renal function, I/O's. avoid nephrotoxins -Renal ultrasound -right renal cyst otherwise no signs of obstruction. -Nephrology has followed, Dr. Narvaez Free water 200ml Q6 ID: UTI Wound cultures positive for MRSA -ID following, c 06/13 discontinued cefepime and vancomycin per IDs recommendation. Azithromycin discontinued 06/03 ceftaroline discontinued 06/06 Monitor or signs of infections (Fever, WBC) Right 3rd toe and other skin lesions/cellulitis on LLE likely sources of infection Xray foot: There is a destructive change at the distal aspect of the third distal phalanx at the tuft. 0.4 cm calcific density seen at the proximal lateral plantar aspect of the third digit. 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 CBC normal FEN/ENDO: Diabetes mellitus Holding home medications Metformin 1000 mg twice daily and glipizide at 5 mg twice daily. TSH 0.97 Insulin detemir 32 units BID and SSI with Novolin R q. 6 hour Accu-Cheks. Hold insulin detemir while n.p.o. MSK: Elevated BMI Necrotic right third toe. Xray foot: There is a destructive change at the distal aspect of the third distal phalanx at the tuft. Podiatry is following, recommend amputation when clinically stable Wt loss encouraged PT evaluate and treat PROPH: -Bilateral lower extremity SCDs. resume heparin drip. Lansoprazole 30 mg daily LINES: -Left IJ central line placed 05/31/18 discontinued 06/09. Right IJ CVL placed and continue with very poor IV access Palliative care is following. Discussed with daughter and son at bedside. Care plan discussed and all questions answered.
[2018-06-16] MEDS: Hypromellose 0.3% Opth Gel 10 GM Bottle EACH EYE SCH (21:37)
[2018-06-16] MEDS: Heparin Drip 25,000 UNIT/250 ML BAG IV.CONT PRN (21:48)
[2018-06-16] MEDS: QUEtiapine 25 MG Tablet PO SCH (21:48)
[2018-06-16] MEDS: Dexmedetomidine Inj 1,000 MCG in Sodium Chlor 0.9% Inj 240 ML IV.CONT PRN (23:00)
[2018-06-17] MEDS: Oral Hygiene Kit OROPHARYNG SCH ×5 (01:09→23:37)
[2018-06-17] MEDS: Insulin NovoLIN Regular Correctional Sugar Inj SQ SCH ×4 (01:10→17:40)
[2018-06-17] MEDS: Dexmedetomidine Inj 1,000 MCG in Sodium Chlor 0.9% Inj 240 ML IV.CONT PRN ×2 (05:08→13:00)
[2018-06-17 05:36] LABS: Hematocrit 44.1 % (35.0-46.0); Hemoglobin 13.9 gm/dL (11.6-15.3); Mean Corpuscular HGB Conc 31.4 % (32.0-36.0); Mean Corpuscular Hemoglobin 27.2 pg (27.0-34.0); Mean Corpuscular Volume 86.5 fL (80.0-100.0); Mean Platelet Volume 7.8 fL (7.0-11.0); Platelet Count 133 th/mm3 (150-450); Red Cell Distribution Width 17.1 % (11.6-17.2); White Blood Count 6.3 th/mm3 (4.0-11.0)
--- NOTE | 2018-06-17 05:38 | P.PNCC ---
Subjective Subjective Remarks/Hospital Course: Mrs. Scott is a 67-year-old female with past medical history significant for morbid obesity, type 2 diabetes, hypertension, probable COPD who was brought in by the family yesterday night because of increasing weakness and lethargic, this was ongoing for last 2 weeks got worse over the last 2 days. Unable to get detailed history from patient due to lethargy. ER workup showed patient had a urinary tract infection and sepsis, also chest x-ray showed bilateral interstitial infiltrates, and LLL consolidation. There is also evidence of acute kidney injury with creatinine up to 2.59, BUN 89. Intermittently having tachyarrhythmia/atrial flutter with rate in in 130s. Patient was admitted to the hospital service. At the time of hospitalist (Dr. Mckeon) evaluation patient was very lethargic and ABG showed a pH of 7.08 and a PCO2 of 91, PO2 was 70 on 5 L nasal cannula. Patient was immediately placed on BiPAP. Approximately after 45 minutes ABG was repeat showed only marginal improvement pH of 7.12 and PCO2 of 84. Patient was emergently transferred to the ICU and critical care was consulted I evaluated the patient in the ICU. She is currently on BiPAP 15/. Patient is lethargic, even though arousable she falls right back to sleep. Airway protection was questionable. With severe hypercarbic respiratory failure complicated with sepsis, metabolic encephalopathy and acute kidney failure, decision was made to intubate the patient. I endotracheally intubate the patient in placed on the mechanical ventilation. Prior to and post intubation patient heart rate remained in 130s. Hypotensive postintubation, stat 2 L fluid boluses given. Also started on Levophed to keep map above 65. Patient had been placed on Rocephin and will discontinue this and start renally dosed cefepime, add azithromycin for atypical coverage. ID consulted for questionable scabies and sepsis with shock 06/02: Remains critically ill but stabilizing more. ABG shows correction of severe hypercapnia. FiO2 remains at 50%. Urine output adequate BUN remains elevated creatinine slightly improved. Received treatment with permethrin 06/02: Currently afebrile. Bradycardic on the ventilator. Will adjust sedation to midazolam and fentanyl drips. Tolerating tube feeds at 30 cc an hour. XRT of the right foot ordered. 06/03 No events overnight. Sedated with Versed and Fentanyl drips. Afebrile. 06/04: Remains on midazolam drip at 4 mg an hour and fentanyl drip at 100 mcg an hour. Tolerating tube feeds. Currently afebrile. Failed spontaneous breathing trials today. 06/05: Ventilator settings unchanged. Remains on midazolam drip at 5 mg an hour and fentanyl drip at 100 mcg an hour. Tolerating tube feeds. We will reattempt spontaneous breathing trials today. 06/06 Patient is sedated with Fentanyl and versed drips and intubated. Afebrile. 06/07: Afebrile. Remains on midazolam drip at 5 mg an hour and fentanyl drip at 100 mcg an hour. MRI brain revealed no acute intracranial findings. Opens eyes. Not following commands currently. 06/08: Afebrile. Remains on midazolam drip. Opens eyes but not following commands currently. Tolerating tube feeds at goal. Positive BM. 06/09: Tolerated CPAP trials 8 hours yesterday. Not tolerating today. Opens eyes but not follows commands. Tube feeds at goal. Positive BM. Remains on midazolam and fentanyl drips. 06/10: Afebrile. Currently on CPAP trial. 16/8 at 45%. Eyes are open. Currently in A. fib rate controlled. Will start on heparin drip. 06/11: Patient became tachycardic with A. fib with RVR and CPAP trial. Attempted 15/6 at 45%. Eyes are open. Follows commands. 06/12: We will place on dexmedetomidine and attempt CPAP today. Watch for bradycardia.. Tolerating tube feeding. Tracheostomy with palliative care discussion planned for tomorrow Wednesday 06/13. 06/13: Fails CPAP trials. Family in agreement for percutaneous tracheostomy and percutaneous gastrostomy tube placement. Consult placed. Patient currently in sinus bradycardia. 06/14: Plan for percutaneous tracheostomy and percutaneous endoscopic gastrostomy tube placement in a.m. 06/15. FiO2 50% on CPAP trials currently. Tolerating tube feeds. N.p.o. after midnight with heparin drip to be held Subjective 06/15: Successful placement of #8 Shiley proximal XLT percutaneous tracheostomy Dr. Bahena. Status post PEG placement by Dr. Kent. No new issues currently. Hyperglycemic. Insulin detemir was held due to procedures. Off heparin drip. Remains in sinus bradycardia 06/16: s/p trach yesterday. very agitated when awakened. becomes hypertensive. 06/17: less agitated when awakened. now only on precedex. still CAM+, but improving. tachycardic and hypertensive. Objective Vital Signs / I&O: Vital Signs 06/16/18 06:00 06/16/18 06:31 06/16/18 07:00 Temperature Pulse Rate 51 L 51 L 58 L Respiratory Rate 16 16 16 Blood Pressure 126/60 125/60 Pulse Oximetry 94 L 96 96 06/16/18 07:01 06/16/18 07:30 06/16/18 08:00 Temperature 36.4 C L Pulse Rate 59 L 61 63 Respiratory Rate 16 16 16 Blood Pressure 137/61 134/64 Pulse Oximetry 96 95 96 06/16/18 08:01 06/16/18 08:31 06/16/18 08:37 Temperature Pulse Rate 64 56 L 58 L Respiratory Rate 16 16 16 Blood Pressure 133/61 141/65 H Pulse Oximetry 95 96 97 06/16/18 09:00 06/16/18 09:01 06/16/18 09:31 Temperature Pulse Rate 64 64 62 Respiratory Rate 16 16 16 Blood Pressure 122/58 L 98/53 L Pulse Oximetry 96 96 95 06/16/18 10:00 06/16/18 10:01 06/16/18 10:30 Temperature Pulse Rate 62 61 62 Respiratory Rate 16 16 16 Blood Pressure 108/54 L 104/52 L Pulse Oximetry 96 95 96 06/16/18 11:00 06/16/18 11:01 06/16/18 11:31 Temperature Pulse Rate 60 61 61 Respiratory Rate 16 16 16 Blood Pressure 87/48 L 123/58 L Pulse Oximetry 95 95 95 06/16/18 12:00 06/16/18 12:01 06/16/18 12:26 Temperature 36.6 C Pulse Rate 57 L 58 L 57 L Respiratory Rate 16 16 16 Blood Pressure 121/56 L Pulse Oximetry 94 L 94 L 94 L 06/16/18 12:29 06/16/18 12:30 06/16/18 13:00 Temperature Pulse Rate 57 L 57 L 63 Respiratory Rate 16 16 16 Blood Pressure 110/53 L Pulse Oximetry 94 L 94 L 95 06/16/18 13:01 06/16/18 13:31 06/16/18 14:00 Temperature Pulse Rate 63 60 57 L Respiratory Rate 16 16 16 Blood Pressure 151/64 H 106/51 L Pulse Oximetry 95 95 94 L 06/16/18 14:01 06/16/18 14:05 06/16/18 14:06 Temperature Pulse Rate 59 L 55 L 62 Respiratory Rate 16 16 16 Blood Pressure 76/38 L 80/44 L 86/51 L Pulse Oximetry 93 L 93 L 94 L 06/16/18 14:31 06/16/18 14:32 06/16/18 14:34 Temperature Pulse Rate 57 L 59 L 71 Respiratory Rate 16 18 16 Blood Pressure 83/45 L 84/53 L 110/51 L Pulse Oximetry 94 L 94 L 92 L 06/16/18 15:00 06/16/18 15:01 06/16/18 15:05 Temperature Pulse Rate 56 L 52 L 60 Respiratory Rate 16 16 16 Blood Pressure 79/43 L 76/44 L Pulse Oximetry 93 L 93 L 93 L 06/16/18 15:30 06/16/18 15:42 06/16/18 16:00 Temperature 36.5 C Pulse Rate 54 L 61 56 L Respiratory Rate 16 16 16 Blood Pressure 92/52 L Pulse Oximetry 93 L 94 L 94 L 06/16/18 16:01 06/16/18 16:31 06/16/18 17:00 Temperature Pulse Rate 55 L 59 L 106 H Respiratory Rate 16 16 16 Blood Pressure 105/55 L 124/58 L 153/71 H Pulse Oximetry 94 L 95 97 06/16/18 17:31 06/16/18 18:00 06/16/18 18:01 Temperature Pulse Rate 62 66 63 Respiratory Rate 16 16 16 Blood Pressure 135/60 136/60 Pulse Oximetry 96 97 97 06/16/18 18:31 06/16/18 19:00 06/16/18 19:01 Temperature Pulse Rate 70 128 H 65 Respiratory Rate 16 16 16 Blood Pressure 145/67 H 127/60 Pulse Oximetry 94 L 94 L 94 L 06/16/18 19:30 06/16/18 19:48 06/16/18 20:00 Temperature Pulse Rate 86 89 109 H Respiratory Rate 16 16 16 Blood Pressure 127/65 137/103 H Pulse Oximetry 96 96 95 06/16/18 20:31 06/16/18 21:00 06/16/18 21:01 Temperature Pulse Rate 92 H 106 H 105 H Respiratory Rate 16 16 16 Blood Pressure 121/77 154/74 H Pulse Oximetry 91 L 91 L 91 L 06/16/18 21:31 06/16/18 22:00 06/16/18 22:01 Temperature Pulse Rate 125 H 123 H 119 H Respiratory Rate 28 H 19 18 Blood Pressure 177/110 H 153/69 H Pulse Oximetry 98 96 96 06/16/18 22:31 06/16/18 23:00 06/16/18 23:30 Temperature Pulse Rate 148 H 150 H 104 H Respiratory Rate 17 17 16 Blood Pressure 132/65 131/70 113/59 L Pulse Oximetry 95 90 L 95 06/16/18 23:43 06/17/18 00:00 06/17/18 00:30 Temperature 36.7 C Pulse Rate 94 H 90 105 H Respiratory Rate 16 16 16 Blood Pressure 114/72 124/64 Pulse Oximetry 94 L 97 06/17/18 01:00 06/17/18 01:30 06/17/18 02:12 Temperature Pulse Rate 86 88 Respiratory Rate 16 16 16 Blood Pressure 136/64 124/58 L Pulse Oximetry 97 95 97 06/17/18 03:52 Temperature Pulse Rate 79 Respiratory Rate 16 Blood Pressure Pulse Oximetry 95 Intake & Output 06/16/18 06/16/18 06/17/18 06:59 18:59 06:59 Intake Total 2818 / 2818 980 / 980 450 / 450 Output Total 1600 / 1600 1300 / 1300 2600 / 2600 Balance 1218 / 1218 -320 / -320 -2150 / -2150 Weight 149 kg Intake: IV 2650 / 2650 350 / 350 450 / 450 Precedex Inj 1,000 MCG In NS 250 / 250 Inj 240 ML @ 0.2 MCG/KG/HR 8.01 mls/hr IV.CONT TITRATE PRN Rx# :[id number] Heparin/D5W 25,000 U/250 mL 25, 200 / 200 000 unit In 250 ml @ Per Protocol 9 mls/hr IV.CONT TITRATE PRN Rx#:[id number] Versed Inj 50 mg In 50 ml @ 2 150 / 150 100 / 100 MG/HR 2 mls/hr IV.CONT TITRATE PRN Rx#:[id number] 1/2 Normal Saline Inj 1,000 ML 2000 / 1999 @ 20 mls/hr IV.CONT .Q24H [facility] Rx#:[id number] fentaNYL 10 mcg/mL Premix Drip 500 / 500 250 / 250 2,500 mcg In 250 ml @ 50 MCG/HR 5 mls/hr IV.SIG TITRATE PRN Rx #:[id number] Oral 0 / 0 Tube Feeding 168 / 168 430 / 430 Tube Irrigant 0 / 0 Water Bolus Amount 0 / 0 200 / 200 Output: Urine 1600 / 1600 Stool 0 / 0 Urine/Stool Mix 0 / 0 Urine Amount (Catheter) 1300 / 1300 2600 / 2600 Indwelling Urethral Catheter 1300 / 1300 2600 / 2600 Other: Date of Last Bowel Movement 06/13/18 06/13/18 06/17/18 # Bowel Movements 0 # Incontinent Bowel Movements 0 Result Diagrams: 06/16/18 03:18 06/16/18 03:18 Objective Remarks: GENERAL: 67-year-old female currently resting in bed SKIN: Cool and dry. Tinea cruris, axillary region and under the breasts. Excoriated pannus in back. Purple rash and excoriation bilateral lower extremity HEAD: Atraumatic. Normocephalic. No temporal wasting, or tenderness. EYES: Pupils equal, round and reactive to light. Extraocular movements are present EARS, NOSE AND THROAT: Edentulous. Mucous membranes moist. s/p trach. NECK: Short and obese neck, supple, Right IJ is clean dry and intact. Percutaneous tracheostomy #8 Shiley proximal XLT CARDIOVASCULAR: Diminished heart sounds secondary to body habitus. tachycardic , RR No murmurs, rubs or gallops heard RESPIRATORY: Diminished breath sounds throughout due to body habitus. No wheezing ABDOMEN: Obese abdomen, soft, with multiple striae and excoriations. PEG tube placement is clean dry and intact with fresh blood with no active bleeding. EXTREMITIES: Positive pedal edema. Has mild mottling both feet. Purple rash and excoriation bilateral lower extremity. Necrotic appearing right third toe. NEUROLOGICAL: Cranial nerves appear to be grossly intact. Positive gag and cough. Spontaneously moves extremities to stimulation. Currently spontaneously opens eyes. somnolent but arousable. intermittently follows commands. Assessment and Plan - Assessment and Plan Plan: NEURO/Psych: Acute severe encephalopathy secondary to severe sepsis/hypercarbia Agitated delirium Depression disorder NOS Chronic benzodiazepine use continue precedex as needed goal RASS 0. seroquel 50mg po q8h for agitated breakthrough haldol 5mg iv q1h prn for agitation scheduled oxycodone 10mg po q4h for pain. add clonidine 0.3mg po q8hr as a sedation/anxiolytic ajuvant and for hypertension. Daily sedation vacation. CT brain on admission revealed no acute intracranial findings 06/06 EEG, severe encephalopathy/epileptiform activity Acetaminophen 650 every 6 hours as needed fever Holding citalopram 20 mg daily/home medication for depression. Resume clinically indicated On lorazepam 0.5 mg at night as needed. MRI brain revealed no acute intracranial abnormalities RESP: Acute respiratory failure/hypercarbic and hypoxemic Acute COPD exacerbation Probable community-acquired pneumonia CPAP trials as tolerated Ventilator bundle -Albuterol/ipratropium aerosols every 4 hours scheduled and albuterol aerosols every 2 hours as needed d/c steroids. Status post percutaneous tracheostomy 06/[address] Bahena CV: Atrial flutter with rapid ventricular response - back in atrial flutter. History of essential hypertension History of dyslipidemia Off all vasopressors -Echo showed EF 50-55% -Monitor HR and BP keep MAP>65mmHg Currently on pravastatin 80 mg daily, hospital substitution for simvastatin 40 mg daily which is her home medication On digoxin 0.125 mg daily. Check level in a.m. 06/14 was 1.0. Recheck AM 06/22 Heparin drip GI: Hypoalbuminemia Cholelithiasis Sigmoid diverticulosis Abdominal wall hernia/left-sided Hypoalbuminemia Currently holding tube feeds with vital high-protein goal 65 cc an hour. Restart post PEG tube placement according to GIs note. Lansoprazole for GI prophylaxis Docusate sodium/senna 1 tablet twice daily for bowel regimen CT abdomen/pelvis revealed cholelithiasis, sigmoid colonic diverticulosis, and abdominal wall hernia Status post percutaneous endoscopic gastrostomy tube placement Dr. 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 avoid nephrotoxins -Renal ultrasound -right renal cyst otherwise no signs of obstruction. -Nephrology has followed, Dr. Narvaez Free water 200ml Q6 ID: UTI Wound cultures positive for MRSA -ID following, c 06/13 discontinued cefepime and vancomycin per IDs recommendation. Azithromycin discontinued 06/03 ceftaroline discontinued 06/06 Monitor or signs of infections (Fever, WBC) Right 3rd toe and other skin lesions/cellulitis on LLE likely sources of infection Xray foot: There is a destructive change at the distal aspect of the third distal phalanx at the tuft. 0.4 cm calcific density seen at the proximal lateral plantar aspect of the third digit. 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 CBC normal FEN/ENDO: Diabetes mellitus Holding home medications Metformin 1000 mg twice daily and glipizide at 5 mg twice daily. TSH 0.97 Insulin detemir 32 units BID and SSI with Novolin R q. 6 hour Accu-Cheks. Hold insulin detemir while n.p.o. MSK: Elevated BMI Necrotic right third toe. Xray foot: There is a destructive change at the distal aspect of the third distal phalanx at the tuft. Podiatry is following, recommend amputation when clinically stable Wt loss encouraged PT evaluate and treat PROPH: -Bilateral lower extremity SCDs. resume heparin drip. Lansoprazole 30 mg daily LINES: -Left IJ central line placed 05/31/18 discontinued 06/09. Right IJ CVL placed and continue with very poor IV access Palliative care is following. Discussed with daughter and son at bedside. Care plan discussed and all questions answered.
[2018-06-17 06:02] LABS: Carbon Dioxide 29.2 meq/L (21.0-32.0); Potassium 4.1 meq/L (3.5-5.1)
[2018-06-17] MEDS: QUEtiapine 25 MG Tablet PO SCH ×3 (06:02→21:13)
[2018-06-17] MEDS: Nystatin 100,000 UNITS/GM Powder 15 GM Bottle TOPICAL SCH ×5 (07:30→20:30)
--- NOTE | 2018-06-17 08:09 | P.PNID ---
Subjective Remarks: Patient is a 67-year-old female, lives at home with her son, brought into the hospital for evaluation of 2-3 week history of generalized weakness. According to the notes normally she can ambulate in her home using a walker. She was still able to do some ambulation, however for the past 2 days, patient apparently has not been able to get up. It was also noted that she was having some swelling in her abdomen and there was some mention of possible redness. There was no mention of any fever or chills. She has not been congested or coughing. She has not been complaining of any chest pain or any shortness of breath. There is been no nausea or vomiting, or complaints of any diarrhea or urinary complaints. She has known hypertension and diabetes, and there was mention that she has not been able to take her medications since she did not have any money to get her refills. She was initially admitted to the regular floor, and but she developed progressive lethargy, and she was transferred to the ICU. She has not been febrile. Her mental status continued to deteriorate, and she ended up getting intubated. Her chest x-ray showing opacity on the left base. She also has evidence of elevated creatinine, as well as hyperkalemia. Her urinalysis did show significant pyuria. She is getting fluid resuscitation. Currently her blood pressure is holding. Infectious disease consultation has been requested to evaluate the patient with severe sepsis, UTI, and possible scabies. Notes reviewed Afebrile BP ok Sedated on the vent S/P PEG and trach placement CXR stable L base opacity WBC normal Finished Abx 06/14 Antibiotics: None Lines: [facility] - 06/09 Past Medical History: Depression Diabetes Hypertension Hypertriglyceridemia Allergies/Adverse Reactions: Allergies No Known Allergies Allergy (Verified 05/30/18 22:08) Objective Vital Signs 06/16/18 08:31 06/16/18 08:37 06/16/18 09:00 Temperature Pulse Rate 56 L 58 L 64 Respiratory Rate 16 16 16 Blood Pressure 141/65 H Pulse Oximetry 96 97 96 06/16/18 09:01 06/16/18 09:31 06/16/18 10:00 Temperature Pulse Rate 64 62 62 Respiratory Rate 16 16 16 Blood Pressure 122/58 L 98/53 L Pulse Oximetry 96 95 96 06/16/18 10:01 06/16/18 10:30 06/16/18 11:00 Temperature Pulse Rate 61 62 60 Respiratory Rate 16 16 16 Blood Pressure 108/54 L 104/52 L Pulse Oximetry 95 96 95 06/16/18 11:01 06/16/18 11:31 06/16/18 12:00 Temperature 97.8 F Pulse Rate 61 61 57 L Respiratory Rate 16 16 16 Blood Pressure 87/48 L 123/58 L Pulse Oximetry 95 95 94 L 06/16/18 12:01 06/16/18 12:26 06/16/18 12:29 Temperature Pulse Rate 58 L 57 L 57 L Respiratory Rate 16 16 16 Blood Pressure 121/56 L Pulse Oximetry 94 L 94 L 94 L 06/16/18 12:30 06/16/18 13:00 06/16/18 13:01 Temperature Pulse Rate 57 L 63 63 Respiratory Rate 16 16 16 Blood Pressure 110/53 L 151/64 H Pulse Oximetry 94 L 95 95 06/16/18 13:31 06/16/18 14:00 06/16/18 14:01 Temperature Pulse Rate 60 57 L 59 L Respiratory Rate 16 16 16 Blood Pressure 106/51 L 76/38 L Pulse Oximetry 95 94 L 93 L 06/16/18 14:05 06/16/18 14:06 06/16/18 14:31 Temperature Pulse Rate 55 L 62 57 L Respiratory Rate 16 16 16 Blood Pressure 80/44 L 86/51 L 83/45 L Pulse Oximetry 93 L 94 L 94 L 06/16/18 14:32 06/16/18 14:34 06/16/18 15:00 Temperature Pulse Rate 59 L 71 56 L Respiratory Rate 18 16 16 Blood Pressure 84/53 L 110/51 L Pulse Oximetry 94 L 92 L 93 L 06/16/18 15:01 06/16/18 15:05 06/16/18 15:30 Temperature Pulse Rate 52 L 60 54 L Respiratory Rate 16 16 16 Blood Pressure 79/43 L 76/44 L 92/52 L Pulse Oximetry 93 L 93 L 93 L 06/16/18 15:42 06/16/18 16:00 06/16/18 16:01 Temperature 97.7 F Pulse Rate 61 56 L 55 L Respiratory Rate 16 16 16 Blood Pressure 105/55 L Pulse Oximetry 94 L 94 L 94 L 06/16/18 16:31 06/16/18 17:00 06/16/18 17:31 Temperature Pulse Rate 59 L 106 H 62 Respiratory Rate 16 16 16 Blood Pressure 124/58 L 153/71 H 135/60 Pulse Oximetry 95 97 96 06/16/18 18:00 06/16/18 18:01 06/16/18 18:31 Temperature Pulse Rate 66 63 70 Respiratory Rate 16 16 16 Blood Pressure 136/60 145/67 H Pulse Oximetry 97 97 94 L 06/16/18 19:00 06/16/18 19:01 06/16/18 19:30 Temperature Pulse Rate 128 H 65 86 Respiratory Rate 16 16 16 Blood Pressure 127/60 127/65 Pulse Oximetry 94 L 94 L 96 06/16/18 19:48 06/16/18 20:00 06/16/18 20:31 Temperature Pulse Rate 89 109 H 92 H Respiratory Rate 16 16 16 Blood Pressure 137/103 H 121/77 Pulse Oximetry 96 95 91 L 06/16/18 21:00 06/16/18 21:01 06/16/18 21:31 Temperature Pulse Rate 106 H 105 H 125 H Respiratory Rate 16 16 28 H Blood Pressure 154/74 H 177/110 H Pulse Oximetry 91 L 91 L 98 06/16/18 22:00 06/16/18 22:01 06/16/18 22:31 Temperature Pulse Rate 123 H 119 H 148 H Respiratory Rate 19 18 17 Blood Pressure 153/69 H 132/65 Pulse Oximetry 96 96 95 06/16/18 23:00 06/16/18 23:30 06/16/18 23:43 Temperature Pulse Rate 150 H 104 H 94 H Respiratory Rate 17 16 16 Blood Pressure 131/70 113/59 L Pulse Oximetry 90 L 95 06/17/18 00:00 06/17/18 00:30 06/17/18 01:00 Temperature 98.0 F Pulse Rate 90 105 H 86 Respiratory Rate 16 16 16 Blood Pressure 114/72 124/64 136/64 Pulse Oximetry 94 L 97 97 06/17/18 01:30 06/17/18 02:00 06/17/18 02:12 Temperature Pulse Rate 88 81 Respiratory Rate 16 16 16 Blood Pressure 124/58 L 130/68 Pulse Oximetry 95 95 97 06/17/18 02:30 06/17/18 03:00 06/17/18 03:30 Temperature Pulse Rate 77 77 78 Respiratory Rate 16 16 16 Blood Pressure 141/73 H 151/78 H 167/77 H Pulse Oximetry 95 95 94 L 06/17/18 03:52 06/17/18 04:00 06/17/18 04:31 Temperature 98.7 F Pulse Rate 79 79 79 Respiratory Rate 16 16 16 Blood Pressure 171/80 H 172/77 H Pulse Oximetry 95 94 L 95 06/17/18 05:00 06/17/18 05:01 06/17/18 05:30 Temperature Pulse Rate 79 79 79 Respiratory Rate 16 16 16 Blood Pressure 148/67 H 151/70 H Pulse Oximetry 94 L 94 L 95 06/17/18 06:00 06/17/18 06:30 Temperature Pulse Rate 79 78 Respiratory Rate 16 16 Blood Pressure 157/74 H 156/73 H Pulse Oximetry 95 95 Intake & Output 06/16/18 06/17/18 06/17/18 18:59 06:59 18:59 Intake Total 980 / 980 1275 / 1275 Output Total 1300 / 1300 3250 / 3250 Balance -320 / -320 -1974 / Weight 144.2 kg Intake: IV 350 / 350 450 / 450 Precedex Inj 1,000 MCG In NS 250 / 250 Inj 240 ML @ 0.2 MCG/KG/HR 8.01 mls/hr IV.CONT TITRATE PRN Rx# :[id number] Heparin/D5W 25,000 U/250 mL 25, 200 / 200 000 unit In 250 ml @ Per Protocol 9 mls/hr IV.CONT TITRATE PRN Rx#:[id number] Versed Inj 50 mg In 50 ml @ 2 100 / 100 MG/HR 2 mls/hr IV.CONT TITRATE PRN Rx#:[id number] fentaNYL 10 mcg/mL Premix Drip 250 / 250 2,500 mcg In 250 ml @ 50 MCG/HR 5 mls/hr IV.SIG TITRATE PRN Rx #:[id number] Tube Feeding 430 / 430 425 / 425 Water Bolus Amount 200 / 200 400 / 400 Output: Urine Amount (Catheter) 1300 / 1300 3250 / 3250 Indwelling Urethral Catheter 1300 / 1300 3250 / 3250 Other: Date of Last Bowel Movement 06/13/18 06/17/18 # Bowel Movements 2 Lab - Hematology Results 06/16/18 06/17/18 03:18 05:15 WBC 7.0 6.3 RBC 4.52 5.10 Hgb 12.3 13.9 Hct 39.3 44.1 MCV 87.1 86.5 MCH 27.3 27.2 MCHC 31.4 L 31.4 L RDW 17.4 H 17.1 Plt Count 163 133 L MPV 8.4 7.8 Neut % (Auto) 88.0 H Lymph % (Auto) 5.5 L Coke % (Auto) 6.2 Eos % (Auto) 0.1 Baso % (Auto) 0.2 Neut # (Auto) 6.1 Lymph # (Auto) 0.4 L Coke # (Auto) 0.4 Eos # (Auto) 0.0 Baso # (Auto) 0.0 WBC Differential . Differential Comment Auto diff final Lab - Chemistry Results 06/15/18 06/15/18 06/15/18 13:08 19:39 22:25 Sodium Potassium 5.2 H Chloride Carbon Dioxide Anion Gap BUN Creatinine Estimated GFR POC Glucose 133 H 247 H Random Glucose Calcium Phosphorus Magnesium Total Bilirubin AST ALT Alkaline Phosphatase Total Protein Albumin 06/15/18 06/16/18 06/16/18 23:36 03:18 06:20 Sodium 140 Potassium 5.1 Chloride 102 Carbon Dioxide 31.3 Anion Gap 7 BUN 23 H Creatinine 0.76 Estimated GFR 76 L POC Glucose 226 H 186 H Random Glucose 198 H D Calcium 8.9 Phosphorus 3.8 Magnesium 2.1 Total Bilirubin 0.4 AST 20 ALT 33 Alkaline Phosphatase 64 Total Protein 6.0 L Albumin 2.4 L 06/16/18 06/16/18 06/17/18 12:00 16:36 01:07 Sodium Potassium Chloride Carbon Dioxide Anion Gap BUN Creatinine Estimated GFR POC Glucose 145 H 136 H 144 H Random Glucose Calcium Phosphorus Magnesium Total Bilirubin AST ALT Alkaline Phosphatase Total Protein Albumin 06/17/18 06/17/18 06/17/18 05:15 05:16 05:18 Sodium 141 Potassium 4.1 D Chloride 103 Carbon Dioxide 29.2 Anion Gap 9 BUN 22 H Creatinine 0.70 Estimated GFR 83 L POC Glucose 57 L 114 H Random Glucose 118 H Calcium 9.0 Phosphorus Magnesium Total Bilirubin AST ALT Alkaline Phosphatase Total Protein Albumin 06/17/18 05:19 Sodium Potassium Chloride Carbon Dioxide Anion Gap BUN Creatinine Estimated GFR POC Glucose 116 H Random Glucose Calcium Phosphorus Magnesium Total Bilirubin AST ALT Alkaline Phosphatase Total Protein Albumin Imaging: ITS Impressions Abdomen/Bladder Ultrasound 05/31/18 00:00 CONCLUSION: 1. No obstructive uropathy or other acute abnormality demonstrated. 2. Benign cyst of the right kidney. Abdomen/Pelvis CT 05/31/18 00:00 CONCLUSION: 1. Cholelithiasis. 2. Colonic diverticulosis without definitive evidence for diverticulitis. 3. Prominent uterus with hypodense 6 cm mass anteriorly likely reflecting a pedunculated fibroid. 4. Appendix is not visualized and potentially obscured by the uterine fibroid. 5. Large fat-containing left-sided anterior abdominal wall hernia. 6. Diffuse soft tissue edema in the inferior abdominal pannus. Head CT 05/31/18 00:00 CONCLUSION: 1. No acute intracranial abnormality. 2. Minimal paranasal sinus mucosal disease. Foot X-Ray 06/02/18 00:00 CONCLUSION: There is a destructive change at the distal aspect of the third distal phalanx at the tuft. Osteomyelitis needs be considered. 0.4 cm calcific density seen at the proximal lateral plantar aspect of the third digit. Head MRI 06/07/18 00:00 CONCLUSION: 1. Senescent changes with mild periventricular ischemic white matter demyelination. 2. Otherwise, unremarkable MRI examination of the brain. Specifically, no evidence for acute infarction. 3. Paranasal sinus disease. Abdomen X-Ray 06/15/18 00:00 CONCLUSION: Chest X-Ray 06/15/18 06:00 CONCLUSION: 1. Persistent left basilar consolidation/effusion. 2. Improving atelectatic changes in the right base. 3. Cardiomegaly. Stable position of life-support tubes. Physical Exam: GENERAL: NAD, on the vent. SKIN: Cool and dry. No generalized rash HEAD: Atraumatic. Normocephalic. No temporal wasting, or tenderness. EYES: Dowling conjunctiva. Pupils equal, round and reactive to light. EARS, NOSE AND THROAT: Nose without bleeding or purulent nasal discharge. Orally intubated. NECK: Short and obese neck, supple, no meningeal signs CARDIOVASCULAR: Regular rate and rhythm. No murmurs, rubs or gallops heard RESPIRATORY: Decreased breath sounds both bases. Has bilateral wheezing ABDOMEN: Obese abdomen, soft, with striae, has large abdominal pannus, has obese mons pubis with excoriations, bowel sounds present and normoactive. No guarding. Dime size wound on L side of abdomen with slough, has serous drainage , no periwound redness EXTREMITIES: No clubbing, pedal edema. Dry changes on the third toe, and has dry gangrene, no redness NEUROLOGICAL: Sedated, no Babinski, no clonus PSYCHIATRIC: Unable to assess LINE LIJ: No evidence of infection Assessment and Plan - Plan Impression Sepsis on presentation due to UTI, possible PNA L. UTI, repeat UA better Possible right 3rd toe osteomyelitis. - destructive lesion at the tuft - toe looks indolent Acute renal failure, likely multifactorial, dehydration, sepsis, resolved Respiratory failure, could have underlying ANIVAL due to morbid obesity, possibly PNA L - developed high pCo2 due to hypoventilation - CXR improving - S/P trach Rash looks like scabies, S/P Rx scabies with permethrim Recommendation Monitor off Abx The 3rd toe looks indolent - will need further work up at some point Consider removing central line RIJ (Placed 06/09) Monitor progress Clinically stable from ID standpoint Will be available prn Please call if with further ID issues or questions
[2018-06-17] MEDS: Chlorhexidine 0.12% Oral Kit 15 ML UDC OROPHARYNG SCH ×2 (08:38→20:29)
[2018-06-17] MEDS: Digoxin 125 MCG Tablet PO SCH (08:38)
[2018-06-17] MEDS: Insulin Detemir Inj 1,000 UNIT/10 ML Vial SQ SCH ×2 (08:39→20:30)
[2018-06-17] MEDS: Senna/Docusate Sodium 8.6/50 MG Tablet PO SCH ×2 (08:39→20:28)
[2018-06-17] MEDS: Mupirocin 2% Nasal Oint Topical Syringe EACH NARE SCH ×2 (08:40→20:29)
[2018-06-17] MEDS: Collagenase Oint 30 GM Tube TOPICAL SCH (08:40)
[2018-06-17] MEDS: Heparin Drip 25,000 UNIT/250 ML BAG IV.CONT PRN (19:17)
[2018-06-17] MEDS: Hypromellose 0.3% Opth Gel 10 GM Bottle EACH EYE SCH (20:29)
[2018-06-17] MEDS ORDERED: Metoprolol Inj 5 MG/5 ML Vial IV.PUSH ONE (22:00)
[2018-06-18] MEDS: Dexmedetomidine Inj 1,000 MCG in Sodium Chlor 0.9% Inj 240 ML IV.CONT PRN (01:15)
[2018-06-18] MEDS: Insulin NovoLIN Regular Correctional Sugar Inj SQ SCH ×2 (01:15→06:44)
[2018-06-18] MEDS: Oral Hygiene Kit OROPHARYNG SCH ×2 (03:40→14:33)
[2018-06-18] MEDS: QUEtiapine 25 MG Tablet PO SCH (05:23)
[2018-06-18 06:39] LABS: Hematocrit 41.4 % (35.0-46.0); Hemoglobin 13.1 gm/dL (11.6-15.3); Mean Corpuscular HGB Conc 31.7 % (32.0-36.0); Mean Corpuscular Hemoglobin 27.5 pg (27.0-34.0); Mean Corpuscular Volume 86.9 fL (80.0-100.0); Mean Platelet Volume 8.1 fL (7.0-11.0); Platelet Count 117 th/mm3 (150-450); Red Blood Count 4.77 mil/mm3 (4.00-5.30); Red Cell Distribution Width 17.3 % (11.6-17.2); White Blood Count 6.3 th/mm3 (4.0-11.0)
[2018-06-18 07:04] LABS: Anion Gap 7 meq/L (5-15); Blood Urea Nitrogen 25 mg/dL (7-18); Calcium 8.6 mg/dL (8.5-10.1); Carbon Dioxide 30.9 meq/L (21.0-32.0); Chloride 100 meq/L (98-107); Glomerular Filtration Rate Greater Than 89 mL/min (>89); Glucose,Random 141 mg/dL (74-106); Potassium 4.3 meq/L (3.5-5.1); Sodium 138 meq/L (136-145)
[2018-06-18] MEDS: Digoxin 125 MCG Tablet PO SCH (08:13)
[2018-06-18] MEDS: Senna/Docusate Sodium 8.6/50 MG Tablet PO SCH (08:14)
[2018-06-18] MEDS: Insulin Detemir Inj 1,000 UNIT/10 ML Vial SQ SCH (08:14)
[2018-06-18] MEDS: Mupirocin 2% Nasal Oint Topical Syringe EACH NARE SCH (08:14)
[2018-06-18] MEDS: Chlorhexidine 0.12% Oral Kit 15 ML UDC OROPHARYNG SCH (08:15)
[2018-06-18] MEDS: Nystatin 100,000 UNITS/GM Powder 15 GM Bottle TOPICAL SCH ×2 (08:15→14:34)
[2018-06-18] MEDS: Collagenase Oint 30 GM Tube TOPICAL SCH (08:16)
--- NOTE | 2018-06-18 11:34 | P.DS ---
Date of admission: 05/31/18 10:13 Primary care physician: No Primary Care Physician Attending physician on discharge: Roger Markham Anticipated date of discharge: 06/18/18 Brief History from admission: Mrs. Scott is a 67-year-old female. Family had this patient brought in because she was found to have weakness and lethargy. She cannot provide much history due to her lethargy. Urinary tract infection is discovered. She also has acute kidney injury. This patient is obese and may have hypoventilation syndrome especially in the setting of her current metabolic encephalopathy. Any form of exertion including turning the patient in bed has resulted in this patient having SVT up to the 130s. She is not meeting septic criteria at this point. Currently with oxygen she is hypoxic. ABG has been ordered and is pending. Further history cannot be directly obtained from the patient. DS: Diagnosis - Discharge Diagnosis (1) Acute kidney injury Status: Acute (2) Acute UTI (urinary tract infection) Status: Acute (3) Hypoxia Status: Acute (4) SVT (supraventricular tachycardia) Status: Acute (5) Sepsis secondary to UTI Status: Acute (6) Hyperkalemia, diminished renal excretion Status: Resolved (7) Hypernatremia Status: Acute (8) Respiratory failure Status: Acute DS: Summary Hospital Course: Mrs. Scott is a 67-year-old female with past medical history significant for morbid obesity, type 2 diabetes, hypertension, probable COPD who was brought in by the family yesterday night because of increasing weakness and lethargic, this was ongoing for last 2 weeks got worse over the last 2 days. Unable to get detailed history from patient due to lethargy. ER workup showed patient had a urinary tract infection and sepsis, also chest x-ray showed bilateral interstitial infiltrates, and LLL consolidation. There is also evidence of acute kidney injury with creatinine up to 2.59, BUN 89. Intermittently having tachyarrhythmia/atrial flutter with rate in in 130s. Patient was admitted to the hospital service. At the time of hospitalist (Dr. Mckeon) evaluation patient was very lethargic and ABG showed a pH of 7.08 and a PCO2 of 91, PO2 was 70 on 5 L nasal cannula. Patient was immediately placed on BiPAP. Approximately after 45 minutes ABG was repeat showed only marginal improvement pH of 7.12 and PCO2 of 84. Patient was emergently transferred to the ICU and critical care was consulted I evaluated the patient in the ICU. She is currently on BiPAP 05/04. Patient is lethargic, even though arousable she falls right back to sleep. Airway protection was questionable. With severe hypercarbic respiratory failure complicated with sepsis, metabolic encephalopathy and acute kidney failure, decision was made to intubate the patient. I endotracheally intubate the patient in placed on the mechanical ventilation. Prior to and post intubation patient heart rate remained in 130s. Hypotensive postintubation, stat 2 L fluid boluses given. Also started on Levophed to keep map above 65. Patient had been placed on Rocephin and will discontinue this and start renally dosed cefepime, add azithromycin for atypical coverage. ID consulted for questionable scabies and sepsis with shock 06/02: Remains critically ill but stabilizing more. ABG shows correction of severe hypercapnia. FiO2 remains at 50%. Urine output adequate BUN remains elevated creatinine slightly improved. Received treatment with permethrin 06/02: Currently afebrile. Bradycardic on the ventilator. Will adjust sedation to midazolam and fentanyl drips. Tolerating tube feeds at 30 cc an hour. XRT of the right foot ordered. 06/03 No events overnight. Sedated with Versed and Fentanyl drips. Afebrile. 06/04: Remains on midazolam drip at 4 mg an hour and fentanyl drip at 100 mcg an hour. Tolerating tube feeds. Currently afebrile. Failed spontaneous breathing trials today. 06/05: Ventilator settings unchanged. Remains on midazolam drip at 5 mg an hour and fentanyl drip at 100 mcg an hour. Tolerating tube feeds. We will reattempt spontaneous breathing trials today. 06/06 Patient is sedated with Fentanyl and versed drips and intubated. Afebrile. 06/07: Afebrile. Remains on midazolam drip at 5 mg an hour and fentanyl drip at 100 mcg an hour. MRI brain revealed no acute intracranial findings. Opens eyes. Not following commands currently. 06/08: Afebrile. Remains on midazolam drip. Opens eyes but not following commands currently. Tolerating tube feeds at goal. Positive BM. 06/09: Tolerated CPAP trials 8 hours yesterday. Not tolerating today. Opens eyes but not follows commands. Tube feeds at goal. Positive BM. Remains on midazolam and fentanyl drips. 06/10: Afebrile. Currently on CPAP trial. 16/8 at 45%. Eyes are open. Currently in A. fib rate controlled. Will start on heparin drip. 06/11: Patient became tachycardic with A. fib with RVR and CPAP trial. Attempted 15/6 at 45%. Eyes are open. Follows commands. 06/12: We will place on dexmedetomidine and attempt CPAP today. Watch for bradycardia.. Tolerating tube feeding. Tracheostomy with palliative care discussion planned for tomorrow Wednesday 06/13. 06/13: Fails CPAP trials. Family in agreement for percutaneous tracheostomy and percutaneous gastrostomy tube placement. Consult placed. Patient currently in sinus bradycardia. 06/14: Plan for percutaneous tracheostomy and percutaneous endoscopic gastrostomy tube placement in a.m. 06/15. FiO2 50% on CPAP trials currently. Tolerating tube feeds. N.p.o. after midnight with heparin drip to be held 06/15: Successful placement of #8 Shiley proximal XLT percutaneous tracheostomy Dr. Bahena. Status post PEG placement by Dr. Kent. No new issues currently. Hyperglycemic. Insulin detemir was held due to procedures. Off heparin drip. Remains in sinus bradycardia 06/16: s/p trach yesterday. very agitated when awakened. becomes hypertensive. 06/17: less agitated when awakened. now only on precedex. still CAM+, but improving. tachycardic and hypertensive. 06/18: clinically stable. less agitated. needs LTAC level care. [facility]. will swap heparin drip to therapeutic lovenox ( indication a. flutter). - Time Spent with Patient Total time spent providing and/or coordinating discharge services: Greater than 30 minutes - Quality: VTE Deep Vein Thrombosis/Pulmonary Embolism Present on Admission: No Exam Vital signs: Vital Signs 06/17/18 12:00 06/17/18 14:00 06/17/18 16:00 Temperature 37.1 C 36.9 C Pulse Rate 79 79 57 L Respiratory Rate 16 16 Blood Pressure 140/63 118/57 L Pulse Oximetry 96 96 06/17/18 17:24 06/17/18 17:25 06/17/18 18:00 Temperature Pulse Rate 78 81 Respiratory Rate 16 16 Blood Pressure Pulse Oximetry 96 06/17/18 19:56 06/17/18 20:00 06/17/18 22:00 Temperature 37.4 C Pulse Rate 83 83 97 H Respiratory Rate 16 16 Blood Pressure 125/64 Pulse Oximetry 99 96 06/17/18 23:43 06/18/18 00:00 06/18/18 02:00 Temperature 36.8 C Pulse Rate 92 H 67 80 Respiratory Rate 16 16 Blood Pressure 130/62 Pulse Oximetry 96 96 06/18/18 04:00 06/18/18 04:05 06/18/18 06:00 Temperature 36.1 C L Pulse Rate 62 77 Respiratory Rate 16 20 Blood Pressure 128/59 L Pulse Oximetry 98 95 06/18/18 07:29 06/18/18 08:00 Temperature Pulse Rate 89 Respiratory Rate 16 Blood Pressure Pulse Oximetry 98 Intake & Output 06/17/18 06/18/18 06/18/18 18:59 06:59 18:59 Intake Total 1082 / 1082 1345 / 1345 Output Total 2149 / 2149 500 / 500 Balance -1068 / -1068 845 / 845 Weight 143.5 kg Intake: IV 250 / 250 450 / 450 Precedex Inj 1,000 MCG In NS 250 / 250 250 / 250 Inj 240 ML @ 0.2 MCG/KG/HR 8.01 mls/hr IV.CONT TITRATE PRN Rx# :[id number] Heparin/D5W 25,000 U/250 mL 25, 200 / 200 000 unit In 250 ml @ Per Protocol 9 mls/hr IV.CONT TITRATE PRN Rx#:[id number] Tube Feeding 432 / 432 495 / 495 Water Bolus Amount 400 / 400 400 / 400 Output: Urine 500 / 500 Urine Amount (Catheter) 2149 Indwelling Urethral Catheter 2149 Other: # Incontinent Voids 1 Date of Last Bowel Movement 06/17/18 06/17/18 # Bowel Movements 0 0 Narrative: GENERAL: 67-year-old female currently resting in bed SKIN: Cool and dry. Tinea cruris, axillary region and under the breasts. Excoriated pannus in back. Purple rash and excoriation bilateral lower extremity HEAD: Atraumatic. Normocephalic. No temporal wasting, or tenderness. EYES: Pupils equal, round and reactive to light. Extraocular movements are present EARS, NOSE AND THROAT: Edentulous. Mucous membranes moist. s/p trach. NECK: Short and obese neck, supple, Right IJ is clean dry and intact. Percutaneous tracheostomy #8 Shiley proximal XLT CARDIOVASCULAR: Diminished heart sounds secondary to body habitus. tachycardic , RR No murmurs, rubs or gallops heard RESPIRATORY: Diminished breath sounds throughout due to body habitus. No wheezing ABDOMEN: Obese abdomen, soft, with multiple striae and excoriations. PEG tube placement is clean dry and intact with fresh blood with no active bleeding. EXTREMITIES: Positive pedal edema. Has mild mottling both feet. Purple rash and excoriation bilateral lower extremity. Necrotic appearing right third toe. NEUROLOGICAL: Cranial nerves appear to be grossly intact. Positive gag and cough. Spontaneously moves extremities to stimulation. Currently spontaneously opens eyes. somnolent but arousable. intermittently follows commands. Results Procedures completed during hospitalization: Abdomen/Bladder Ultrasound 05/31/18 00:00 CONCLUSION: 1. No obstructive uropathy or other acute abnormality demonstrated. 2. Benign cyst of the right kidney. Abdomen/Pelvis CT 05/31/18 00:00 CONCLUSION: 1. Cholelithiasis. 2. Colonic diverticulosis without definitive evidence for diverticulitis. 3. Prominent uterus with hypodense 6 cm mass anteriorly likely reflecting a pedunculated fibroid. 4. Appendix is not visualized and potentially obscured by the uterine fibroid. 5. Large fat-containing left-sided anterior abdominal wall hernia. 6. Diffuse soft tissue edema in the inferior abdominal pannus. Head CT 05/31/18 00:00 CONCLUSION: 1. No acute intracranial abnormality. 2. Minimal paranasal sinus mucosal disease. Foot X-Ray 06/02/18 00:00 CONCLUSION: There is a destructive change at the distal aspect of the third distal phalanx at the tuft. Osteomyelitis needs be considered. 0.4 cm calcific density seen at the proximal lateral plantar aspect of the third digit. Head MRI 06/07/18 00:00 CONCLUSION: 1. Senescent changes with mild periventricular ischemic white matter demyelination. 2. Otherwise, unremarkable MRI examination of the brain. Specifically, no evidence for acute infarction. 3. Paranasal sinus disease. Abdomen X-Ray 06/15/18 00:00 CONCLUSION: Chest X-Ray 06/15/18 06:00 CONCLUSION: 1. Persistent left basilar consolidation/effusion. 2. Improving atelectatic changes in the right base. 3. Cardiomegaly. Stable position of life-support tubes. Labs on day of discharge: Labs from last 24 hours 06/18/18 06/18/18 06/18/18 07:30 06:28 05:45 WBC RBC Hgb Hct MCV MCH MCHC RDW Plt Count MPV APTT 36.9 H Sodium 138 Potassium 4.3 Chloride 100 Carbon Dioxide 30.9 Anion Gap 7 BUN 25 H Creatinine 0.65 Estimated GFR Greater than 89 POC Glucose 165 H Random Glucose 141 H Calcium 8.6 06/18/18 06/17/18 06/17/18 05:45 23:38 19:20 WBC 6.3 RBC 4.77 Hgb 13.1 Hct 41.4 MCV 86.9 MCH 27.5 MCHC 31.7 L RDW 17.3 H Plt Count 117 L MPV 8.1 APTT 31.0 H Sodium Potassium Chloride Carbon Dioxide Anion Gap BUN Creatinine Estimated GFR POC Glucose 175 H Random Glucose Calcium 06/17/18 06/17/18 06/17/18 17:38 12:31 10:45 WBC RBC Hgb Hct MCV MCH MCHC RDW Plt Count MPV APTT 29.6 Sodium Potassium Chloride Carbon Dioxide Anion Gap BUN Creatinine Estimated GFR POC Glucose 139 H 170 H Random Glucose Calcium - Impressions ITS Impressions Abdomen/Bladder Ultrasound 05/31/18 00:00 CONCLUSION: 1. No obstructive uropathy or other acute abnormality demonstrated. 2. Benign cyst of the right kidney. Abdomen/Pelvis CT 05/31/18 00:00 CONCLUSION: 1. Cholelithiasis. 2. Colonic diverticulosis without definitive evidence for diverticulitis. 3. Prominent uterus with hypodense 6 cm mass anteriorly likely reflecting a pedunculated fibroid. 4. Appendix is not visualized and potentially obscured by the uterine fibroid. 5. Large fat-containing left-sided anterior abdominal wall hernia. 6. Diffuse soft tissue edema in the inferior abdominal pannus. Head CT 05/31/18 00:00 CONCLUSION: 1. No acute intracranial abnormality. 2. Minimal paranasal sinus mucosal disease. Foot X-Ray 06/02/18 00:00 CONCLUSION: There is a destructive change at the distal aspect of the third distal phalanx at the tuft. Osteomyelitis needs be considered. 0.4 cm calcific density seen at the proximal lateral plantar aspect of the third digit. Head MRI 06/07/18 00:00 CONCLUSION: 1. Senescent changes with mild periventricular ischemic white matter demyelination. 2. Otherwise, unremarkable MRI examination of the brain. Specifically, no evidence for acute infarction. 3. Paranasal sinus disease. Abdomen X-Ray 06/15/18 00:00 CONCLUSION: Chest X-Ray 06/15/18 06:00 CONCLUSION: 1. Persistent left basilar consolidation/effusion. 2. Improving atelectatic changes in the right base. 3. Cardiomegaly. Stable position of life-support tubes. Discharge Plan - Discharge Disposition Patient Disposition: 70 Transfer To Other Facility - Discharge Condition Condition: Stable - Discharge Order Discharge Orders: Discharge Order (Routine); Ordered 06/18/18 Ordered By: Roger Markham - Discharge Details Anticipated Discharge Date: 06/18/18 Discharge Comment: to [facility] - Physicians Team Primary Care Provider: Primary Care Physici,No Attending Provider: Smita Wayne Other Providers: Makayla Duarte MD ; Smita Wayne MD ; Uche Narvaez MD ; Adarsh Baker DPM ; Acosta Jeter MD ; Nj Miner MD, PhD ; Nicole Patel MD ; [facility]
[2018-06-18] MEDS ORDERED: Enoxaparin Inj 150 MG/ML Syringe SQ SCH (12:00)
--- NOTE | 2018-06-18 13:34 | XR ---
EXAM DATE: 06/18/2018 1:19 PM EDT AGE/SEX: 67 years / Female INDICATIONS: Shortness of breath. Pulmonary disease. CLINICAL DATA: This is the patient's subsequent encounter. Patient reports that signs and symptoms h ave been present for 1 week and indicates a pain score of Nonresponsive. MEDICAL/SURGICAL HISTORY: . Hypertension. Depression. Diabetes. Hypertriglyceridemia. . Trach. COMPARISON: [facility] [place]ST 1V SINGLE AP, 06/15/2018. . FINDINGS: There is mild haziness to the perivascular structures most likely pulmonary edema. Slight cardiomegaly seen. Focal consolidation is not seen. Lines and tubes have not changed. CONCLUSION: Moderate CHF, overall not significantly changed. Electronically signed by: Zahra Otero MD 06/18/2018 1:32 PM EDT
== END 2018-06-18 15:50 | disposition short-term general hospital (02) ==
LOC: NEPE 21:38 → NEDA 05-31 02:35 → INTOOBSV 05-31 02:53 → HIMC 05-31 13:01
PROVIDERS: ADMIT Internal Medicine; ATTEND Internal Medicine

== ENCOUNTER 2018-09-13 12:32 | Inpatient (IN) ==
[2018-09-13 13:04] LABS: Baso # (Auto) 0.1 th/mm3 (0.0-0.2); Baso % (Auto) 0.4 % (0.0-2.0); Eos # (Auto) 0.1 th/mm3 (0.0-0.4); Eos % (Auto) 0.5 % (0.0-4.0); Hematocrit 39.2 % (35.0-46.0); Hemoglobin 12.5 gm/dL (11.6-15.3); Lymph # (Auto) 1.1 th/mm3 (1.0-4.8); Lymph % (Auto) 7.3 % (9.0-44.0); Mean Corpuscular HGB Conc 31.9 % (32.0-36.0); Mean Corpuscular Hemoglobin 29.9 pg (27.0-34.0); Mean Corpuscular Volume 93.6 fL (80.0-100.0); Mean Platelet Volume 7.5 fL (7.0-11.0); Mono % (Auto) 6.6 % (0.0-8.0); Neut # (Auto) 12.4 th/mm3 (1.8-7.7); Neut % (Auto) 85.2 % (16.0-70.0); Platelet Count 242 th/mm3 (150-450); Red Blood Count 4.18 mil/mm3 (4.00-5.30); Red Cell Distribution Width 17.7 % (11.6-17.2); White Blood Count 14.6 th/mm3 (4.0-11.0)
--- NOTE | 2018-09-13 13:16 | ED ---
HPI General Chief Complaint: Skin/Abscess/Foreign Body Stated Complaint: Skin Time Seen by Provider: 09/13/18 12:50 Source: patient Mode of arrival: EMS Limitations: physical limitation History of Present Illness HPI narrative: 68-year-old female complains of pain and swelling and redness around feeding tube area. Family members states that the symptoms started about 2 weeks ago and get worse since then. Patient has history of respiratory failure status post tracheostomy placement. Patient also has history of morbid obesity, type 2 diabetes, hypertension, COPD, respiratory failure. Patient status post feeding tube placement. Patient comes from home. Family member states that they had problems with the feeding tube for the past 2 weeks and a lot of leakage of the feeding around the feeding tube and problem with blockage of the feeding tube. Family members noticed some redness and swelling around the feeding tube also. No reported fever at home. Related Data Home Medications Medication Instructions Recorded Confirmed citalopram [Celexa] 40 mg PO DAILY 09/13/18 09/13/18 famotidine [Pepcid] 20 mg PO BID 09/13/18 09/13/18 glipizide 5 mg PO BID 09/13/18 09/13/18 hydrocodone-acetaminophen [Hycet] 10 ml PO Q4HR 09/13/18 09/13/18 hyoscyamine sulfate [Levsin/SL] 0.125 mg SUBLINGUAL Q3HR PRN 09/13/18 09/13/18 ipratropium-albuterol 3 ml INHALATION Q4HR PRN 09/13/18 09/13/18 lorazepam 1 mg PO Q6HR PRN 09/13/18 09/13/18 metformin 1,000 mg PO BID 09/13/18 09/13/18 morphine concentrate 5 mg SUBLINGUAL Q3HR PRN 09/13/18 09/13/18 prednisone 20 mg PO DAILY 09/13/18 09/13/18 warfarin [Jantoven] 6 mg PO DAILY 09/13/18 09/13/18 Previous Rx's Medication Instructions Recorded digoxin 125 mcg PO DAILY tab 06/18/18 sennosides [Senna Lax] 17.2 mg PO Q12H PRN tab 06/18/18 Allergies Allergy/AdvReac Type Severity Reaction Status Date / Time No Known Allergies Allergy Verified 05/30/18 22:08 Review of Systems ROS: all other systems reviewed are negative PMFSH Medical History Medical History Depression (Acute) Diabetes (Acute) Hypertension (Acute) Hypertriglyceridemia (Acute) Morbid obesity (Acute) Family History Family History Grandparent Colon cancer Social History Social History Substance History: No History of Abuse Second Hand Smoke Exposure: No Smoking Status: Former smoker Tobacco Type: Cigarettes Packs Per Day: 2 Cigarettes Per Day: 40.0 Years Smoked: 40 Pack-Years: 80.00 How Often Do You Have a Drink Containing Alcohol: Never Recent Travel in [facility] within the Last 8 Weeks: No Recent Out of Country Travel within the Last 8 Weeks: No Immunization History Tetanus Immunization: Unsure Exam Narrative Exam Narrative: GENERAL: Well-nourished, well-developed patient. SKIN: Focused skin assessment warm/dry. HEAD: Normocephalic. EYES: No scleral icterus. No injection or drainage. NECK: Supple, trachea midline. No JVD or lymphadenopathy. CARDIOVASCULAR: Regular rate and rhythm without murmurs, gallops, or rubs. RESPIRATORY: Breath sounds equal bilaterally. No accessory muscle use. Patient had diffuse rhonchi and wheezes bilaterally. GASTROINTESTINAL: Abdomen soft, nondistended. Feeding tube in place right upper quadrant of the abdomen. Feeding tube material leaking around the feeding tube. Redness swelling with tenderness surrounding the feeding tube area. No induration noted. MUSCULOSKELETAL: No cyanosis, or edema. BACK: Nontender without obvious deformity. No CVA tenderness. Neurologic exam: Patient is awake and alert. Patient has tracheostomy in place. Course Initial Documented Vital Signs Temperature 100.9 F H 09/13/18 12:40 Pulse Rate 19 L 09/13/18 12:40 Blood Pressure 119/68 09/13/18 12:40 Pulse Oximetry 97 09/13/18 12:40 Last Documented Vital Signs Temperature 100.9 F H 09/13/18 12:40 Pulse Rate 121 H 09/13/18 15:07 Respiratory Rate 20 09/13/18 15:07 Blood Pressure 132/61 09/13/18 15:07 Pulse Oximetry 95 09/13/18 15:07 Medical Decision Making MDM Narrative Medical decision making narrative: 68-year-old female with feeding tube malfunctioning including clogging and discharge and redness swelling around the feeding tube. Medical Screen Exam Complete: Yes Emergency Medical Condition: Yes Differential Diagnosis Differential Diagnosis: Differential diagnosis including clogged feeding tube, displacement of feeding tube cellulitis, abscess. Lab Data Lab results reviewed: Yes I reviewed the patient's lab results. Result diagrams: 09/13/18 12:50 09/13/18 12:50 Lab Results 09/13/18 09/13/18 09/13/18 Range/Units 12:50 12:50 12:50 WBC 14.6 H (4.0-11.0) th/mm3 RBC 4.18 (4.00-5.30) mil/mm3 Hgb 12.5 (11.6-15.3) gm/dL Hct 39.2 (35.0-46.0) % MCV 93.6 (80.0-100.0) fL MCH 29.9 (27.0-34.0) pg MCHC 31.9 L (32.0-36.0) % RDW 17.7 H (11.6-17.2) % Plt Count 242 (150-450) th/mm3 MPV 7.5 (7.0-11.0) fL Neut % (Auto) 85.2 H (16.0-70.0) % Lymph % (Auto) 7.3 L (9.0-44.0) % [place] % (Auto) 6.6 (0.0-8.0) % Eos % (Auto) 0.5 (0.0-4.0) % Baso % (Auto) 0.4 (0.0-2.0) % Neut # (Auto) 12.4 H (1.8-7.7) th/mm3 Lymph # (Auto) 1.1 (1.0-4.8) th/mm3 [place] # (Auto) 1.0 H (0.0-0.9) th/mm3 Eos # (Auto) 0.1 (0.0-0.4) th/mm3 Baso # (Auto) 0.1 (0.0-0.2) th/mm3 WBC Differential . Differential Comment Auto diff final Sodium 139 (136-145) meq/L Potassium 5.0 (3.5-5.1) meq/L Chloride 101 (98-107) meq/L Carbon Dioxide 30.6 (21.0-32.0) meq/L Anion Gap 7 (5-15) meq/L BUN 20 H (7-18) mg/dL Creatinine 0.94 (0.50-1.00) mg/dL Estimated GFR 59 L (>89) mL/min Random Glucose 165 H (74-106) mg/dL Lactic Acid 1.3 (0.4-2.0) mmol/L Calcium 8.3 L (8.5-10.1) mg/dL Magnesium 1.8 (1.5-2.5) mg/dL Total Bilirubin 0.6 (0.2-1.0) mg/dL AST 28 (15-37) U/L ALT 28 (10-53) U/L Alkaline Phosphatase 74 (45-117) U/L Total Protein 6.5 (6.4-8.2) g/dL Albumin 2.5 L (3.4-5.0) g/dL Imaging Data Attestation: I personally reviewed and interpreted this imaging study as follows : Radiologist's impression: Chest X-Ray 09/13/18 12:51 CONCLUSION: Resolution of previously seen pulmonary edema. Abdomen/Pelvis CT 09/13/18 13:09 CONCLUSION: 1. The gastrostomy tube is pulled back into the superficial subcutaneous tissues, almost out. 2. Debris and induration along the tract through the subcutaneous tissues to the peritoneal cavity without evidence of intraperitoneal abscess, air or fluid 3. Pelvic findings of undetermined significance which appear grossly unchanged. Discharge Plan Discharge Disposition Patient Disposition: 30 Still Patient Discharge Details Diagnosis: Complication of feeding tube Physicians Team ED Provider: Jose Kapadia Primary Care Provider: Primary Care JosseliniLili Rxs /Orders / Referrals /Forms Prescriptions: No Action sennosides [Senna Lax] 8.6 mg Tablet 17.2 mg PO Q12H PRN (Reason: Moderate Constipation) RF: 0 digoxin 125 mcg Tablet 125 mcg PO DAILY RF: 0 ipratropium-albuterol 0.5 mg-3 mg(2.5 mg base)/3 mL Solution For Nebulization 3 ml INHALATION Q4HR PRN (Reason: Shivering) RF: 0 metformin 1,000 mg Tablet 1,000 mg PO BID RF: 0 morphine concentrate 20 mg/mL Syringe 5 mg SUBLINGUAL Q3HR PRN (Reason: Shortness Of Breath) RF: 0 citalopram [Celexa] 40 mg Tablet 40 mg PO DAILY RF: 0 warfarin [Jantoven] 6 mg Tablet 6 mg PO DAILY RF: 0 famotidine [Pepcid] 20 mg Tablet 20 mg PO BID RF: 0 lorazepam 1 mg Tablet 1 mg PO Q6HR PRN (Reason: Anxiety) RF: 0 glipizide 5 mg Tablet 5 mg PO BID RF: 0 hydrocodone-acetaminophen [Hycet] 7.5-325 mg/15 mL Solution 10 ml PO Q4HR RF: 0 prednisone 20 mg Tablet 20 mg PO DAILY RF: 0 hyoscyamine sulfate [Levsin/SL] 0.125 mg Tablet, Sublingual 0.125 mg SUBLINGUAL Q3HR PRN (Reason: Excessive Salivation) RF: 0 Discharge Interventions Interventions: Vital Signs Last Done: 09/13/18 15:07 Status ED Status: With Doctor
[2018-09-13 13:24] LABS: Alkaline Phosphatase 74 U/L (45-117); Total Protein 6.5 g/dL (6.4-8.2)
[2018-09-13 13:29] LABS: Alanine Aminotransferase 28 U/L (10-53); Albumin 2.5 g/dL (3.4-5.0); Anion Gap 7 meq/L (5-15); Aspartate Aminotransferase 28 U/L (15-37); Blood Urea Nitrogen 20 mg/dL (7-18); Calcium 8.3 mg/dL (8.5-10.1); Carbon Dioxide 30.6 meq/L (21.0-32.0); Chloride 101 meq/L (98-107); Glomerular Filtration Rate 59 mL/min (>89); Glucose,Random 165 mg/dL (74-106); Magnesium 1.8 mg/dL (1.5-2.5); Sodium 139 meq/L (136-145)
--- NOTE | 2018-09-13 15:02 | XR ---
EXAM DATE: 09/13/2018 12:51 PM EDT AGE/SEX: 68 years / Female INDICATIONS: Fever and shortness of breath. CLINICAL DATA: This is the patient's initial encounter. Patient reports that signs and symptoms have been present for 2 days and indicates a pain score of 0/10. MEDICAL/SURGICAL HISTORY: Hypertension. Diabetes. . Tracheostomy. COMPARISON: [facility] – [place], CHEST 1V SINGLE AP, 06/18/2018. . FINDINGS: The previously seen pulmonary edema has resolved. Cardiomegaly remains. The rest of the examination has not changed. CONCLUSION: Resolution of previously seen pulmonary edema. Electronically signed by: Zahra Otero MD 09/13/2018 3:01 PM EDT
--- NOTE | 2018-09-13 15:29 | CT ---
EXAM DATE: 09/13/2018 1:17 PM EDT AGE/SEX: 68 years / Female INDICATIONS: Redness around feeding tube, feeding tube displacement CLINICAL DATA: This is the patient's initial encounter. Patient reports that signs and symptoms have been present for 1 day and indicates a pain score of 0/10. MEDICAL/SURGICAL HISTORY: Diabetes. Hypertension. Chronic obstructive pulmonary disease. . Fe eding tube RADIATION DOSE: 16.88 CTDI (mGy) COMPARISON: [facility] [place], CT ABDOMEN & PELVIS W/O CONTRAST, 05/31/2018. . TECHNIQUE: Multiple contiguous axial images were obtained through the abdomen. Images were obtained using multiple row detector helical technique. Using automated exposure control and adjustment of the mA and/or kV according to patient size, radiation dose was kept as low as reasonably achievable to o btain optimal diagnostic quality images. DICOM format image data is available electronically for rev iew and comparison. FINDINGS: Lower Lungs: Mild atelectasis in the left lung base. Cardiac enlargement and small pericardial effusi on. Liver: The liver has a homogeneous density without space-occupying lesion. There is no dilation of th e biliary tree. Gallbladder mildly distended with dependent sludge or stones. Spleen: Homogeneous density without enlargement. Pancreas: Unremarkable without mass or calcification. Kidneys: Right renal cyst. No evidence of stone or hydronephrosis. Adrenal Glands: Unremarkable. Aorta: The aorta and proximal iliac vessels are grossly unremarkable without aneurysmal dilation. Bowel/Mesentery: Gastrostomy tube is pulled into the superficial subcutaneous tissues. There is debr is and induration along the tube tract to the peritoneal cavity. There is no evidence of abscess or s ignificant intraperitoneal air or fluid at present. The bowel structures otherwise unremarkable and n ondistended. Abdominal Wall: Fat-containing umbilical hernia. Retroperitoneum: No evidence of adenopathy in the retrocrural, para-aortic, or deep pelvic regions. Bladder: Contours are smooth. Reproductive Organs: Lobulated pelvic masses adjacent to or contiguous with the uterus, potentially pedunculated fibroids. No significant change from recent prior. Inguinal: The inguinal region is unremarkable without evidence of adenopathy. Bony Structures: Unremarkable. CONCLUSION: 1. The gastrostomy tube is pulled back into the superficial subcutaneous tissues, almost out. 2. Debris and induration along the tract through the subcutaneous tissues to the peritoneal cavity w ithout evidence of intraperitoneal abscess, air or fluid 3. Pelvic findings of undetermined significance which appear grossly unchanged. Electronically signed by: Tone Jeffery MD 09/13/2018 3:28 PM EDT
--- NOTE | 2018-09-13 17:27 | P.CONGI ---
History of Present Illness Consult date: 09/13/18 Consult reason: Dislodged PEG tube Chief complaint: Skin History of Present Illness: This is an alert morbidly obese 68-year-old female who came into the ER on 09/13 with erythema and some mild swelling around the PEG tube that was placed on June 20, [address] Patel for dysphasia. Once patient was stable she was taken home with her family and has been using PEG tube up until today. Daughter is with her and states that she nor the patient are aware of the PEG tube being pulled accidentally. Patient also has a permanent trachea in place but is able to say a few words around the trach. Daughter also states that speech therapy is pending and patient has been able to take a few small bites without cough. Patient states she does get sensations of being full and is not eating very much. Patient has noted some leakage of tube feeding around the site and some increased pain but was using the feeding tube up until today. Abdominal pain seems to be specific to the PEG tube site there is obvious mild induration and swelling, but no purulent drainage noted. Gastroenterology was consulted to assist in her care. PEG tube was removed and 4 x 4 dressing was applied in the ER setting. Current labs show hemoglobin 12.5, bilirubin LFTs and alkaline phosphatase normal, WBC count 14.6 mild leukocytosis could be related to erythema around PEG tube. CT scan showed that the PEG tube was in the superficial tissues and almost I out. There was debris and induration into the peritoneal cavity tract but no abscess noted. 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 Officer / EMT - Medical History Medical History: Medical History (Last Reviewed 09/13/18 @ 13:18 by Jose Kapadia MD) Depression Diabetes Hypertension Hypertriglyceridemia Morbid obesity - Family History Family History: Family History (Last Reviewed 09/13/18 @ 13:18 by Jose Kapadia MD) Grandparent Colon cancer - Tobacco History Second Hand Smoke Exposure: No Tobacco Use In Past 30 Days: No Smoking Status: Former smoker Tobacco Type: Cigarettes Packs Per Day: 2 Years Smoked: 40 - Alcohol History How Often Do You Have a Drink Containing Alcohol: Never - Substance Use History Substance History: No History of Abuse - Travel History Recent Travel in the [facility] Within the Last 8 Weeks: No Recent Travel Out of the Country Within the Last 8 Weeks: No - Immunization History Tetanus Immunization: Unsure <Jasmin Vasquez - Last Filed: 09/13/18 17:27> - Medical History Medical History: Medical History (Last Reviewed 09/13/18 @ 13:18 by Jose Kapadia MD) Depression Diabetes Hypertension Hypertriglyceridemia Morbid obesity - Family History Family History: Family History (Last Reviewed 09/13/18 @ 13:18 by Jose Kapadia MD) Grandparent Colon cancer <Sa Kirbyud E - Last Filed: 09/13/18 23:19> Medications and Allergies <Jasmin Vasquez - Last Filed: 09/13/18 17:27> Active Medications: Active Medications Acetaminophen (Tylenol) 650 mg PO Q4H PRN PRN Reason: Temp > 100.4 Albuterol (Duoneb Neb (Prn)) 1 ampul INH Q4HR NEB PRN PRN Reason: SHORTNESS OF BREATH Chlorhexidine Gluconate (Chlorhexidine 2% Cloth) 3 pack TOPICAL DAILY@0400 [facility] Stop: 09/19/18 03:59 Chlorhexidine Gluconate (Chlorhexidine 2% Cloth) 3 pack TOPICAL DAILY@0400 PRN PRN Reason: Extra cloth needed Stop: 09/19/18 03:59 Citalopram Hydrobromide (Celexa) 40 mg PO DAILY [facility] Digoxin (Lanoxin) 125 mcg PO DAILY [facility] Hyoscyamine (Levsin) 0.125 mg PO Q3H PRN PRN Reason: SECRETIONS Sodium Chloride (Ns Inj) 1,000 mls @ 120 mls/hr IV.CONT .Q8H20M [facility] Last Admin: 09/13/18 19:56 Dose: 75 mls/hr Cefepime HCl 1,000 mg/ Sodium (Chloride) 100 mls @ 200 mls/hr IV.SIG Q8H [facility] Patient Medication Teaching (Coumadin Booklet) 1 each OTHER ONCE ONE Stop: 09/14/18 16:01 Pharmacy Profile Note (Vancomycin Consult Pharmacy) 1 each OTHER UNSCH PRN PRN Reason: Pharmacy to dose Pharmacy Profile Note (Coumadin Consult Pharmacy) 1 each OTHER UNSCH PRN PRN Reason: PHARMACY DOCUMENTATION Prednisone (Deltasone) 20 mg PO DAILY [facility] Sennosides (Senokot) 17.2 mg PO Q12H PRN PRN Reason: Moderate Constipation Sodium Chloride (Ns Flush) 2 ml IV.FLUSH BID [facility] Last Admin: 09/13/18 21:38 Dose: 2 ml Sodium Chloride (Ns Flush) 2 ml IV.FLUSH PRN PRN PRN Reason: FLUSH AFTER USING IV ACCESS Warfarin Sodium (Coumadin) 6 mg PO DAILY@1600 [facility] <Alec Orr E - Last Filed: 09/13/18 23:19> Allergies Allergy/AdvReac Type Severity Reaction Status Date / Time No Known Allergies Allergy Verified 05/30/18 22:08 Home Medications Medication Instructions Recorded Confirmed Type citalopram [Celexa] 40 mg PO DAILY 09/13/18 09/13/18 History famotidine [Pepcid] 20 mg PO BID 09/13/18 09/13/18 History glipizide 5 mg PO BID 09/13/18 09/13/18 History hydrocodone-acetaminophen [Hycet] 10 ml PO Q4HR 09/13/18 09/13/18 History hyoscyamine sulfate [Levsin/SL] 0.125 mg SUBLINGUAL Q3HR PRN 09/13/18 09/13/18 History ipratropium-albuterol 3 ml INHALATION Q4HR PRN 09/13/18 09/13/18 History lorazepam 1 mg PO Q6HR PRN 09/13/18 09/13/18 History metformin 1,000 mg PO BID 09/13/18 09/13/18 History morphine concentrate 5 mg SUBLINGUAL Q3HR PRN 09/13/18 09/13/18 History prednisone 20 mg PO DAILY 09/13/18 09/13/18 History warfarin [Jantoven] 6 mg PO DAILY 09/13/18 09/13/18 History Exam Vital signs: Vital Signs 09/13/18 12:40 09/13/18 12:44 09/13/18 12:51 Temperature 100.9 F H Pulse Rate 19 L 148 H 132 H Respiratory Rate 18 Blood Pressure 119/68 119/68 Pulse Oximetry 97 98 09/13/18 13:00 09/13/18 15:07 Temperature Pulse Rate 121 H Respiratory Rate 20 Blood Pressure 132/61 Pulse Oximetry 99 95 Intake & Output 09/12/18 09/13/18 09/13/18 18:59 06:59 18:59 Weight 109.769 kg <ChristinaJasmin M - Last Filed: 09/13/18 17:27> Vital signs: Vital Signs 09/13/18 12:40 09/13/18 12:44 09/13/18 12:51 Temperature 100.9 F H Pulse Rate 19 L 148 H 132 H Respiratory Rate 18 Blood Pressure 119/68 119/68 Pulse Oximetry 97 98 09/13/18 13:00 09/13/18 15:07 09/13/18 15:35 Temperature Pulse Rate 121 H 121 H Respiratory Rate 20 18 Blood Pressure 132/61 151/72 H Pulse Oximetry 99 95 95 09/13/18 18:30 09/13/18 20:00 Temperature Pulse Rate 120 H Respiratory Rate 20 Blood Pressure 154/86 H Pulse Oximetry 96 96 Intake & Output 09/13/18 09/13/18 09/14/18 06:59 18:59 06:59 Intake Total 100 / 100 Balance 100 / 100 Weight 109.769 kg 121 kg Intake: IV 100 / 100 Flagyl 500 MG Inj 100 ML @ 100 100 / 100 mls/hr IV.SIG Q8H [facility] Rx#: [id number] Other: Weight On Admission 121 kg <Alec Orr - Last Filed: 09/13/18 23:19> Results - Labs CBC & Chem 7: 09/13/18 12:50 09/13/18 12:50 Labs: Laboratory Results - last 24 hr 09/13/18 09/13/18 09/13/18 12:50 12:50 12:50 WBC 14.6 H RBC 4.18 Hgb 12.5 Hct 39.2 MCV 93.6 MCH 29.9 MCHC 31.9 L RDW 17.7 H Plt Count 242 MPV 7.5 Neut % (Auto) 85.2 H Lymph % (Auto) 7.3 L Morton % (Auto) 6.6 Eos % (Auto) 0.5 Baso % (Auto) 0.4 Neut # (Auto) 12.4 H Lymph # (Auto) 1.1 Morton # (Auto) 1.0 H Eos # (Auto) 0.1 Baso # (Auto) 0.1 WBC Differential . Differential Comment Auto diff final Sodium 139 Potassium 5.0 Chloride 101 Carbon Dioxide 30.6 Anion Gap 7 BUN 20 H Creatinine 0.94 Estimated GFR 59 L Random Glucose 165 H Lactic Acid 1.3 Calcium 8.3 L Magnesium 1.8 Total Bilirubin 0.6 AST 28 ALT 28 Alkaline Phosphatase 74 Total Protein 6.5 Albumin 2.5 L - Imaging Impressions Chest X-Ray 09/13/18 12:51 CONCLUSION: Resolution of previously seen pulmonary edema. Abdomen/Pelvis CT 09/13/18 13:09 CONCLUSION: 1. The gastrostomy tube is pulled back into the superficial subcutaneous tissues, almost out. 2. Debris and induration along the tract through the subcutaneous tissues to the peritoneal cavity without evidence of intraperitoneal abscess, air or fluid 3. Pelvic findings of undetermined significance which appear grossly unchanged. <Jasmin Vasquez - Last Filed: 09/13/18 17:27> - Labs CBC & Chem 7: 09/13/18 12:50 09/13/18 12:50 Labs: Laboratory Results - last 24 hr 09/13/18 09/13/18 09/13/18 12:50 12:50 12:50 WBC 14.6 H RBC 4.18 Hgb 12.5 Hct 39.2 MCV 93.6 MCH 29.9 MCHC 31.9 L RDW 17.7 H Plt Count 242 MPV 7.5 Neut % (Auto) 85.2 H Lymph % (Auto) 7.3 L Morton % (Auto) 6.6 Eos % (Auto) 0.5 Baso % (Auto) 0.4 Neut # (Auto) 12.4 H Lymph # (Auto) 1.1 Morton # (Auto) 1.0 H Eos # (Auto) 0.1 Baso # (Auto) 0.1 WBC Differential . Differential Comment Auto diff final PT INR Sodium 139 Potassium 5.0 Chloride 101 Carbon Dioxide 30.6 Anion Gap 7 BUN 20 H Creatinine 0.94 Estimated GFR 59 L Random Glucose 165 H Lactic Acid 1.3 Calcium 8.3 L Magnesium 1.8 Total Bilirubin 0.6 AST 28 ALT 28 Alkaline Phosphatase 74 Total Protein 6.5 Albumin 2.5 L 09/13/18 21:15 WBC RBC Hgb Hct MCV MCH MCHC RDW Plt Count MPV Neut % (Auto) Lymph % (Auto) Morton % (Auto) Eos % (Auto) Baso % (Auto) Neut # (Auto) Lymph # (Auto) Morton # (Auto) Eos # (Auto) Baso # (Auto) WBC Differential Differential Comment PT 27.4 H INR 2.7 Sodium Potassium Chloride Carbon Dioxide Anion Gap BUN Creatinine Estimated GFR Random Glucose Lactic Acid Calcium Magnesium Total Bilirubin AST ALT Alkaline Phosphatase Total Protein Albumin - Imaging Impressions Chest X-Ray 09/13/18 12:51 CONCLUSION: Resolution of previously seen pulmonary edema. Abdomen/Pelvis CT 09/13/18 13:09 CONCLUSION: 1. The gastrostomy tube is pulled back into the superficial subcutaneous tissues, almost out. 2. Debris and induration along the tract through the subcutaneous tissues to the peritoneal cavity without evidence of intraperitoneal abscess, air or fluid 3. Pelvic findings of undetermined significance which appear grossly unchanged. <Alec Orr E - Last Filed: 09/13/18 23:19> Assessment and Plan - Plan morbidly obese 68-year-old female who came into the ER on 09/13/2018 with erythema and some mild swelling around the PEG tube that was placed on June 20, [address] Patel for dysphasia. Once patient was stable she was taken home with her family and has been using PEG tube up until today. Daughter is with her and states that she nor the patient are aware of the PEG tube being pulled accidentally. Patient also has a permanent trachea in place but is able to say a few words around the trach. Daughter also states that speech therapy is pending and patient has been able to take a few small bites without cough. Patient states she does get sensations of being full and is not eating very much. Patient has noted some leakage of tube feeding around the site and some increased pain but was using the feeding tube up until today. Abdominal pain seems to be specific to the PEG tube site there is obvious mild induration and swelling, but no purulent drainage noted. Gastroenterology was consulted to assist in her care. PEG tube was removed and 4 x 4 dressing was applied in the ER setting. Current labs show hemoglobin 12.5, bilirubin LFTs and alkaline phosphatase normal, WBC count 14.6 mild leukocytosis could be related to erythema around PEG tube. CT scan showed that the PEG tube was in the superficial tissues and almost I out. There was debris and induration into the peritoneal cavity tract but no abscess noted. Displaced PEG tube, into the subcutaneous tissue. No known accidental pulling of the PEG tube. After removal there was curdle feeding spelled but no obvious purulent drainage. Thick for before dressing applied. Induration noted around PEG tube site at 10:00, with erythema. History of dysphasia, morbid obese patient with permanent trach. PEG tube placement 06/20/[address] Patel. Plan Diet n.p.o. for now Speech consult for swallow eval and treatment regimen PPI IV Antibiotics per attending Bowel regimen Monitor labs with special attention to WBC count Supportive care Further recommendations to follow Patient was seen per myself and Dr. Orr, note was written on his behalf <Jasmin Vasquez - Last Filed: 09/13/18 17:27> - Plan Patient seen and examined Agree with above history and physical Continue with current supportive care Monitor labs Patient will need antibiotics for the cellulitis Consideration will be made for tube replacement if needed <Alec Orr - Last Filed: 09/13/18 23:19>
--- NOTE | 2018-09-13 18:02 | P.HP ---
<CampbellCheko - Last Filed: 09/13/18 22:53> History of Present Illness Primary Care Physician: No Primary Care Physician Inpatient Certification: I certify that the inpatient services were ordered in accordance with Medicare regulations governing the order. This includes certification that hospital inpatient services are reasonable and necessary and in the case of services not specified as inpatient-only under 42 CFR 419.22(n), that they are appropriately provided as inpatient services in accordance to with the 2-midnight benchmark under 43 CFR 412.3(e) [facility] - Medical History Medical History: Medical History (Last Reviewed 09/13/18 @ 13:18 by Jose Kapadia MD) Depression Diabetes Hypertension Hypertriglyceridemia Morbid obesity - Family History Family History: Family History (Last Reviewed 09/13/18 @ 13:18 by Jose Kapadia MD) Grandparent Colon cancer Medications and Allergies Allergies Allergy/AdvReac Type Severity Reaction Status Date / Time No Known Allergies Allergy Verified 05/30/18 22:08 Home Medications Medication Instructions Recorded Confirmed Type citalopram [Celexa] 40 mg PO DAILY 09/13/18 09/13/18 History famotidine [Pepcid] 20 mg PO BID 09/13/18 09/13/18 History glipizide 5 mg PO BID 09/13/18 09/13/18 History hydrocodone-acetaminophen [Hycet] 10 ml PO Q4HR 09/13/18 09/13/18 History hyoscyamine sulfate [Levsin/SL] 0.125 mg SUBLINGUAL Q3HR PRN 09/13/18 09/13/18 History ipratropium-albuterol 3 ml INHALATION Q4HR PRN 09/13/18 09/13/18 History lorazepam 1 mg PO Q6HR PRN 09/13/18 09/13/18 History metformin 1,000 mg PO BID 09/13/18 09/13/18 History morphine concentrate 5 mg SUBLINGUAL Q3HR PRN 09/13/18 09/13/18 History prednisone 20 mg PO DAILY 09/13/18 09/13/18 History warfarin [Jantoven] 6 mg PO DAILY 09/13/18 09/13/18 History Active Medications: Active Medications Acetaminophen (Tylenol) 650 mg PO Q4H PRN PRN Reason: Temp > 100.4 Albuterol (Duoneb Neb (Prn)) 1 ampul INH Q4HR NEB PRN PRN Reason: SHORTNESS OF BREATH Chlorhexidine Gluconate (Chlorhexidine 2% Cloth) 3 pack TOPICAL DAILY@0400 [facility] Stop: 09/19/18 03:59 Chlorhexidine Gluconate (Chlorhexidine 2% Cloth) 3 pack TOPICAL DAILY@0400 PRN PRN Reason: Extra cloth needed Stop: 09/19/18 03:59 Citalopram Hydrobromide (Celexa) 40 mg PO DAILY [facility] Digoxin (Lanoxin) 125 mcg PO DAILY [facility] Hyoscyamine (Levsin) 0.125 mg PO Q3H PRN PRN Reason: SECRETIONS Sodium Chloride (Ns Inj) 1,000 mls @ 120 mls/hr IV.CONT .Q8H20M [facility] Last Admin: 09/13/18 19:56 Dose: 75 mls/hr Vancomycin HCl 1,000 mg/ (Sodium Chloride) 250 mls @ 250 mls/hr IV.SIG ONCE ONE Stop: 09/13/18 22:59 Cefepime HCl 1,000 mg/ Sodium (Chloride) 100 mls @ 200 mls/hr IV.SIG Q8H [facility] Patient Medication Teaching (Coumadin Booklet) 1 each OTHER ONCE ONE Stop: 09/14/18 16:01 Pharmacy Profile Note (Vancomycin Consult Pharmacy) 1 each OTHER UNSCH PRN PRN Reason: Pharmacy to dose Pharmacy Profile Note (Coumadin Consult Pharmacy) 1 each OTHER UNSCH PRN PRN Reason: PHARMACY DOCUMENTATION Prednisone (Deltasone) 20 mg PO DAILY [facility] Sennosides (Senokot) 17.2 mg PO Q12H PRN PRN Reason: Moderate Constipation Sodium Chloride (Ns Flush) 2 ml IV.FLUSH BID [facility] Last Admin: 09/13/18 21:38 Dose: 2 ml Sodium Chloride (Ns Flush) 2 ml IV.FLUSH PRN PRN PRN Reason: FLUSH AFTER USING IV ACCESS Warfarin Sodium (Coumadin) 6 mg PO DAILY@1600 [facility] Exam Vital signs: Vital Signs 09/13/18 12:40 09/13/18 12:44 09/13/18 12:51 Temperature 100.9 F H Pulse Rate 19 L 148 H 132 H Respiratory Rate 18 Blood Pressure 119/68 119/68 Pulse Oximetry 97 98 09/13/18 13:00 09/13/18 15:07 09/13/18 15:35 Temperature Pulse Rate 121 H 121 H Respiratory Rate 20 18 Blood Pressure 132/61 151/72 H Pulse Oximetry 99 95 95 09/13/18 18:30 09/13/18 20:00 Temperature Pulse Rate 120 H Respiratory Rate 20 Blood Pressure 154/86 H Pulse Oximetry 96 96 Intake & Output 09/13/18 09/13/18 09/14/18 06:59 18:59 06:59 Intake Total 100 / 100 Balance 100 / 100 Weight 109.769 kg 121 kg Intake: IV 100 / 100 Flagyl 500 MG Inj 100 ML @ 100 100 / 100 mls/hr IV.SIG Q8H [facility] Rx#: [id number] Other: Weight On Admission 121 kg Results - Labs CBC & Chem 7: 09/13/18 12:50 09/13/18 12:50 Labs: Laboratory Results - last 24 hr 09/13/18 09/13/18 09/13/18 12:50 12:50 12:50 WBC 14.6 H RBC 4.18 Hgb 12.5 Hct 39.2 MCV 93.6 MCH 29.9 MCHC 31.9 L RDW 17.7 H Plt Count 242 MPV 7.5 Neut % (Auto) 85.2 H Lymph % (Auto) 7.3 L [place] % (Auto) 6.6 Eos % (Auto) 0.5 Baso % (Auto) 0.4 Neut # (Auto) 12.4 H Lymph # (Auto) 1.1 [place] # (Auto) 1.0 H Eos # (Auto) 0.1 Baso # (Auto) 0.1 WBC Differential . Differential Comment Auto diff final PT INR Sodium 139 Potassium 5.0 Chloride 101 Carbon Dioxide 30.6 Anion Gap 7 BUN 20 H Creatinine 0.94 Estimated GFR 59 L Random Glucose 165 H Lactic Acid 1.3 Calcium 8.3 L Magnesium 1.8 Total Bilirubin 0.6 AST 28 ALT 28 Alkaline Phosphatase 74 Total Protein 6.5 Albumin 2.5 L 09/13/18 21:15 WBC RBC Hgb Hct MCV MCH MCHC RDW Plt Count MPV Neut % (Auto) Lymph % (Auto) [place] % (Auto) Eos % (Auto) Baso % (Auto) Neut # (Auto) Lymph # (Auto) [place] # (Auto) Eos # (Auto) Baso # (Auto) WBC Differential Differential Comment PT 27.4 H INR 2.7 Sodium Potassium Chloride Carbon Dioxide Anion Gap BUN Creatinine Estimated GFR Random Glucose Lactic Acid Calcium Magnesium Total Bilirubin AST ALT Alkaline Phosphatase Total Protein Albumin - Imaging Impressions Chest X-Ray 09/13/18 12:51 CONCLUSION: Resolution of previously seen pulmonary edema. Abdomen/Pelvis CT 09/13/18 13:09 CONCLUSION: 1. The gastrostomy tube is pulled back into the superficial subcutaneous tissues, almost out. 2. Debris and induration along the tract through the subcutaneous tissues to the peritoneal cavity without evidence of intraperitoneal abscess, air or fluid 3. Pelvic findings of undetermined significance which appear grossly unchanged. Caprini VTE Risk Assessment Caprini Risk Assessment Model: Point Value = 1 Point Value = 2 Point Value = 3 Point Value = 5 Age 41-60 Minor surgery BMI > 25 kg/m2 Swollen legs Varicose veins or History of unexplained or recurrent spontaneous Oral contraceptives or hormone replacement Sepsis (< 1 month) Serious lung disease, including pneumonia (< 1 month) Abnormal pulmonary function Acute myocardial infarction Congestive heart failure (< 1 month) History of inflammatory bowel disease Medical patient at bed rest Age 61-74 Arthroscopic surgery Major open surgery (> 45 min) Laparoscopic surgery (> 45 min) Malignancy Confined to bed (> 72 hours) Immobilizing plaster cast Central venous access Age >= 75 History of VTE Family history of VTE Factor V Leiden Prothrombin [id number] Lupus anticoagulant Anticardiolipin antibodies Elevated serum homocysteine Heparin-induced thrombocytopenia Other congenital or acquired thrombophilia Stroke (< 1 month) Elective arthroplasty Hip, pelvis, or leg fracture Acute spinal cord injury (< 1 month) Prophylaxis Regimen: Total Risk Factor Score Risk Level Prophylaxis Regimen 0-1 Low Early ambulation 2 Moderate Order ONE of the following: *Sequential Compression Device (SCD) *Heparin 5000 units SQ BID 3-4 Higher Order ONE of the following medications: *Heparin 5000 units SQ TID *Enoxaparin/Lovenox 40 mg SQ daily (WT < 150 kg, CrCl > 30 mL/min) *Enoxaparin/Lovenox 30 mg SQ daily (WT < 150 kg, CrCl > 10-29 mL/min) *Enoxaparin/Lovenox 30 mg SQ BID (WT < 150 kg, CrCl > 30 mL/min) AND/OR *Sequential Compression Device (SCD) 5 or more Highest Order ONE of the following medications: *Heparin 5000 units SQ TID (Preferred with Epidurals) *Enoxaparin/Lovenox 40 mg SQ daily (WT < 150 kg, CrCl > 30 mL/min) *Enoxaparin/Lovenox 30 mg SQ daily (WT < 150 kg, CrCl > 10-29 mL/min) *Enoxaparin/Lovenox 30 mg SQ BID (WT < 150 kg, CrCl > 30 mL/min) AND *Sequential Compression Device (SCD) Assessment and Plan - Plan Discussed Condition With: Cheko Lazo, personally evaluated the patient. At the time she was undergoing trach suctioning with HR in the 120s. Her peg tube site did have some limited circumferential erythema but no obvious induration was noted. Pt was lying in bed, awake and alert with trach in place. Daughter had been originally present at the bedside. Prednisone is likely cause of leukocytosis. Nonetheless we will cover for possible sepsis at this time, switch flagyl to cefepime and continue vanc. UA and BCs pending. on IVFs. LA wnl. Will admit the patient to ICU for now w/ telemetry. <Twyla Ma - Last Filed: 09/14/18 07:56> History of Present Illness Service: Hospitalist Primary Care Physician: No Primary Care Physician Chief Complaint: PEG tube displaced History of Present Illness: Patient is a 68-year-old female with a past medical history of depression, diabetes, hypertension, hyperlipidemia, morbid obesity who was recently hospitalized May 2018 for UTI/sepsis. Hospitalization course at that admission was complicated and patient ended up being discharged home with a trach and PEG tube. She returned to the emergency room on 09/13/18 with erythema and swelling around her PEG site and a partially displaced PEG tube. Patient reports that she has been able to eat some food by mouth. She had only been using the PEG tube intermittently because it was not functioning properly. She denies any chest pain or shortness of breath. Has not had difficulty with her trach but would like to be removed if possible. No fever or chills. No dysuria. No nausea vomiting or diarrhea. - Diagnosis (1) Tachycardia (2) Acute UTI (urinary tract infection) (3) Respiratory failure (4) Complication of feeding tube Review of Systems All other systems reviewed negative except as stated in HPI PMFSH - History History Provided By: Patient, Family Member, Medical Record - Medical History Medical History: Medical History (Last Reviewed 09/14/18 @ 07:51 by FERNANDO Ríos) MDRO (multiple drug resistant organisms) resistance Onset Date: ~09/13/18 Depression Diabetes Hypertension Hypertriglyceridemia Morbid obesity - Surgical History Surgical History: Surgical History (Last Updated 09/14/18 @ 07:51 by FERNANDO Ríos) Hx of tubal ligation - Family History Family History: Family History (Last Reviewed 09/14/18 @ 07:51 by FERNANDO Ríos) Grandparent Colon cancer - Social History I have reviewed the patient's Social History: Yes - Tobacco History Second Hand Smoke Exposure: No Tobacco Use In Past 30 Days: No Smoking Status: Former smoker Tobacco Type: Cigarettes Packs Per Day: 2 Years Smoked: 40 - Alcohol History How Often Do You Have a Drink Containing Alcohol: Never - Substance Use History Substance History: No History of Abuse - Travel History Recent Travel in the [place] Within the Last 8 Weeks: No Recent Travel Out of the Country Within the Last 8 Weeks: No - Immunization History Tetanus Immunization: Unsure Medications and Allergies Active Medications: Active Medications Acetaminophen (Tylenol) 650 mg PO Q4H PRN PRN Reason: Temp > 100.4 Sodium Chloride (Ns Flush) 2 ml IV.FLUSH BID BECKY Sodium Chloride (Ns Flush) 2 ml IV.FLUSH PRN PRN PRN Reason: FLUSH AFTER USING IV ACCESS Exam Vital signs: Vital Signs 09/13/18 12:40 09/13/18 12:44 09/13/18 12:51 Temperature 100.9 F H Pulse Rate 19 L 148 H 132 H Respiratory Rate 18 Blood Pressure 119/68 119/68 Pulse Oximetry 97 98 09/13/18 13:00 09/13/18 15:07 Temperature Pulse Rate 121 H Respiratory Rate 20 Blood Pressure 132/61 Pulse Oximetry 99 95 Intake & Output 09/12/18 09/13/18 09/13/18 18:59 06:59 18:59 Weight 109.769 kg Narrative: GENERAL: Obese, well-developed adult female in no obvious distress. SKIN: Warm and dry. HEAD: Atraumatic. Normocephalic. CARDIOVASCULAR: Tachycardic. RESPIRATORY: No accessory muscle use. Clear to auscultation. Breath sounds equal bilaterally. Trach with no significant sputum or drainage. GASTROINTESTINAL: Abdomen soft, non-distended. Positive bowel sounds. Erythema and tenderness around prior PICC site. No obvious drainage. MUSCULOSKELETAL: Extremities without clubbing, cyanosis, or edema. No obvious deformities. NEUROLOGICAL: Awake and alert. No obvious cranial nerve deficits. Motor grossly within normal limits. Normal speech. PSYCHIATRIC: Appropriate mood and affect; insight and judgment good. Results - Labs CBC & Chem 7: 09/14/18 06:02 09/14/18 06:02 Labs: Laboratory Results - last 24 hr 09/13/18 09/13/18 09/13/18 12:50 12:50 12:50 WBC 14.6 H RBC 4.18 Hgb 12.5 Hct 39.2 MCV 93.6 MCH 29.9 MCHC 31.9 L RDW 17.7 H Plt Count 242 MPV 7.5 Neut % (Auto) 85.2 H Lymph % (Auto) 7.3 L [place] % (Auto) 6.6 Eos % (Auto) 0.5 Baso % (Auto) 0.4 Neut # (Auto) 12.4 H Lymph # (Auto) 1.1 [place] # (Auto) 1.0 H Eos # (Auto) 0.1 Baso # (Auto) 0.1 WBC Differential . Differential Comment Auto diff final Sodium 139 Potassium 5.0 Chloride 101 Carbon Dioxide 30.6 Anion Gap 7 BUN 20 H Creatinine 0.94 Estimated GFR 59 L Random Glucose 165 H Lactic Acid 1.3 Calcium 8.3 L Magnesium 1.8 Total Bilirubin 0.6 AST 28 ALT 28 Alkaline Phosphatase 74 Total Protein 6.5 Albumin 2.5 L - Imaging Impressions Chest X-Ray 09/13/18 12:51 CONCLUSION: Resolution of previously seen pulmonary edema. Abdomen/Pelvis CT 09/13/18 13:09 CONCLUSION: 1. The gastrostomy tube is pulled back into the superficial subcutaneous tissues, almost out. 2. Debris and induration along the tract through the subcutaneous tissues to the peritoneal cavity without evidence of intraperitoneal abscess, air or fluid 3. Pelvic findings of undetermined significance which appear grossly unchanged. Caprini VTE Risk Assessment Caprini VTE Risk Assessment: Moderate/High Risk (score >= 2) Caprini Risk Assessment Model: Point Value = 1 Point Value = 2 Point Value = 3 Point Value = 5 Age 41-60 Minor surgery BMI > 25 kg/m2 Swollen legs Varicose veins or History of unexplained or recurrent spontaneous Oral contraceptives or hormone replacement Sepsis (< 1 month) Serious lung disease, including pneumonia (< 1 month) Abnormal pulmonary function Acute myocardial infarction Congestive heart failure (< 1 month) History of inflammatory bowel disease Medical patient at bed rest Age 61-74 Arthroscopic surgery Major open surgery (> 45 min) Laparoscopic surgery (> 45 min) Malignancy Confined to bed (> 72 hours) Immobilizing plaster cast Central venous access Age >= 75 History of VTE Family history of VTE Factor V Leiden Prothrombin [id number] Lupus anticoagulant Anticardiolipin antibodies Elevated serum homocysteine Heparin-induced thrombocytopenia Other congenital or acquired thrombophilia Stroke (< 1 month) Elective arthroplasty Hip, pelvis, or leg fracture Acute spinal cord injury (< 1 month) Prophylaxis Regimen: Total Risk Factor Score Risk Level Prophylaxis Regimen 0-1 Low Early ambulation 2 Moderate Order ONE of the following: *Sequential Compression Device (SCD) *Heparin 5000 units SQ BID 3-4 Higher Order ONE of the following medications: *Heparin 5000 units SQ TID *Enoxaparin/Lovenox 40 mg SQ daily (WT < 150 kg, CrCl > 30 mL/min) *Enoxaparin/Lovenox 30 mg SQ daily (WT < 150 kg, CrCl > 10-29 mL/min) *Enoxaparin/Lovenox 30 mg SQ BID (WT < 150 kg, CrCl > 30 mL/min) AND/OR *Sequential Compression Device (SCD) 5 or more Highest Order ONE of the following medications: *Heparin 5000 units SQ TID (Preferred with Epidurals) *Enoxaparin/Lovenox 40 mg SQ daily (WT < 150 kg, CrCl > 30 mL/min) *Enoxaparin/Lovenox 30 mg SQ daily (WT < 150 kg, CrCl > 10-29 mL/min) *Enoxaparin/Lovenox 30 mg SQ BID (WT < 150 kg, CrCl > 30 mL/min) AND *Sequential Compression Device (SCD) Assessment and Plan - Assessment (1) Tachycardia Code(s): R00.0 - Tachycardia, unspecified Status: Acute (2) Acute UTI (urinary tract infection) Code(s): N39.0 - Urinary tract infection, site not specified Status: Acute (3) Respiratory failure Code(s): J96.90 - Respiratory failure, unspecified, unspecified whether with hypoxia or hypercapnia Status: Acute (4) Complication of feeding tube Code(s): K94.23 - Gastrostomy malfunction Status: Acute - Plan Patient is a 68-year-old female with a past medical history of depression, diabetes, hypertension, hyperlipidemia, morbid obesity who was recently hospitalized May 2018 for UTI/sepsis. Hospitalization course at that admission was complicated and patient ended up being discharged with a trach and PEG tube. She returned to the emergency room on 09/13/18 with erythema and swelling around her PEG site and a partially displaced PEG tube. PEG tube displaced -GI consulted; PEG tube removed by GI 09/13 in the ED. -N.p.o. for now; speech therapy ordered to evaluate swallowing A. fib/tachycardia -On scheduled warfarin; check INR -Restart warfarin; pharmacy consult for assistance in management ordered -EKG ordered Possible peritoneal infection /PEG site infection -Heart rate variable 120s-150s; T=100.9. Lactic acid 1.3; BP stable -start cefepime and Vanco -CT abdomen pelvis did not indicate abscess -Cultures pending Respiratory failure with trach (placed 06/15/18) -Nebulizers ordered -Ventilator bundle Possible UTI -Patient previously admitted for sepsis/UTI -UA with culture ordered Continue other home meds as indicated. Monitor electrolytes DVT prophylaxis: On warfarin Discharge planning: PT order for evaluation.
[2018-09-13] MEDS ORDERED: Vancomycin Consult Pharmacy OTHER PRN (18:03)
[2018-09-13] MEDS ORDERED: Warfarin Consult Pharmacy OTHER PRN (18:20)
[2018-09-13] MEDS ORDERED: Vancomycin Inj 1,000 MG in Sodium Chlor 0.9% Inj 250 ML IV.SIG ONE ×2 (18:30→22:00)
[2018-09-13] MEDS: Sod Chloride 0.9% Inj 1,000 ML IV.CONT SCH (19:56)
[2018-09-13 21:31] LABS: INR 2.7 Ratio; Prothrombin Time 27.4 sec (9.8-11.6)
[2018-09-13 23:47] LABS: Bacteria,Urine Moderate /hpf; Bilirubin,Urine Negative (Negative); Clarity,Urine Hazy (Clear); Color,Urine Yellow (Yellw/Straw); Glucose,Urine (UA) Negative (Negative); Leukocyte Esterase,Urine Trace (Negative); Mucus,Urine Few /lpf (Occasional); Nitrite,Urine Positive (Negative); Specific Gravity,Urine 1.019 (1.002-1.035)
[2018-09-14] MEDS ORDERED: Chlorhexidine Gluconate 2% 1 Pack (2 Cloths) TOPICAL PRN (04:00)
[2018-09-14] MEDS: Chlorhexidine Gluconate 2% 1 Pack (2 Cloths) TOPICAL SCH (05:18)
[2018-09-14 07:15] LABS: Baso % (Auto) 0.4 % (0.0-2.0); Eos % (Auto) 0.3 % (0.0-4.0); Hematocrit 34.2 % (35.0-46.0); Hemoglobin 11.4 gm/dL (11.6-15.3); Lymph # (Auto) 0.8 th/mm3 (1.0-4.8); Lymph % (Auto) 6.9 % (9.0-44.0); Mean Corpuscular HGB Conc 33.2 % (32.0-36.0); Mean Corpuscular Hemoglobin 30.3 pg (27.0-34.0); Mean Corpuscular Volume 91.4 fL (80.0-100.0); Mean Platelet Volume 7.9 fL (7.0-11.0); Mono # (Auto) 0.9 th/mm3 (0.0-0.9); Mono % (Auto) 7.3 % (0.0-8.0); Neut # (Auto) 10.3 th/mm3 (1.8-7.7); Neut % (Auto) 85.1 % (16.0-70.0); Platelet Count 239 th/mm3 (150-450); Red Blood Count 3.75 mil/mm3 (4.00-5.30); Red Cell Distribution Width 17.4 % (11.6-17.2); White Blood Count 12.1 th/mm3 (4.0-11.0)
[2018-09-14 07:19] LABS: INR 2.3 Ratio; Prothrombin Time 23.6 sec (9.8-11.6)
[2018-09-14 07:34] LABS: Calcium 7.9 mg/dL (8.5-10.1); Carbon Dioxide 28.8 meq/L (21.0-32.0); Potassium 4.2 meq/L (3.5-5.1)
--- NOTE | 2018-09-14 08:25 | ECG ---
Date Performed: 09/13/2018 Time Performed: 21:56:52 PTAGE: 68 years EKG: Possible atrial flutter with rapid ventricular response. Rightward axis Extensive ST-T morris ges are nonspecific Low QRS voltages in precordial leads Abnormal ECG Compared to prior electrocardio gram, within the constraints of artifact on both EKGs, it appears atrial flutter has replaced Sinus r hythm And nonspecific T-wave changes are less marked. PREVIOUS TRACING : 06/13/2018 15.46 DOCTOR: Fredrick Kline Interpretating Date/Time 09/14/2018 08:23:43
[2018-09-14] MEDS: Digoxin 125 MCG Tablet PO SCH (08:41)
[2018-09-14] MEDS: predniSONE 20 MG Tablet PO SCH (08:41)
[2018-09-14] MEDS: Sod Chloride 0.9% Inj 1,000 ML IV.CONT SCH ×3 (10:16→22:54)
--- NOTE | 2018-09-14 12:29 | P.PNGI ---
Subjective Interval history: PEG tube malfunction PEG tube removed 09/13/2018 in ER <Connie Gan - Last Filed: 09/14/18 12:19> Physical Exam Vital signs: Vital Signs 09/13/18 12:40 09/13/18 12:44 09/13/18 12:51 Temperature 100.9 F H Pulse Rate 19 L 148 H 132 H Respiratory Rate 18 Blood Pressure 119/68 119/68 Pulse Oximetry 97 98 09/13/18 13:00 09/13/18 15:07 09/13/18 15:35 Temperature Pulse Rate 121 H 121 H Respiratory Rate 20 18 Blood Pressure 132/61 151/72 H Pulse Oximetry 99 95 95 09/13/18 18:30 09/13/18 20:00 09/13/18 21:00 Temperature 98.7 F Pulse Rate 120 H 134 H Respiratory Rate 20 29 H Blood Pressure 154/86 H 134/57 L Pulse Oximetry 96 96 100 09/14/18 00:00 09/14/18 02:00 09/14/18 04:00 Temperature Pulse Rate 122 H 119 H 108 H Respiratory Rate 29 H 26 H Blood Pressure 115/58 L 125/54 L Pulse Oximetry 96 96 09/14/18 06:00 09/14/18 08:00 09/14/18 10:00 Temperature 99.1 F Pulse Rate 112 H 94 H 98 H Respiratory Rate 24 Blood Pressure 106/54 L Pulse Oximetry 95 09/14/18 12:00 Temperature Pulse Rate 105 H Respiratory Rate Blood Pressure Pulse Oximetry Intake & Output 09/13/18 09/14/18 09/14/18 18:59 06:59 18:59 Intake Total 700 / 700 447 / 447 Output Total 150 / 150 Balance 550 / 550 447 / 447 Weight 109.769 kg 121 kg Intake: IV 700 / 700 447 / 447 NS Inj 1,000 ML @ 120 mls/hr IV 347 / 347 .CONT .Q8H20M [facility] Rx#:[id number] Maxipime Inj 1,000 MG In NS Inj 100 / 100 100 / 100 100 ML @ 200 mls/hr IV.SIG Q8H [facility] Rx#:[id number] Vancomycin Inj 1,000 MG In NS 500 / 500 Inj 250 ML @ 250 mls/hr IV.SIG ONCE ONE Rx#:[id number] Flagyl 500 MG Inj 100 ML @ 100 100 / 100 mls/hr IV.SIG Q8H [facility] Rx#: [id number] Oral 0 / 0 Output: Urine Amount (Catheter) 150 / 150 Straight 150 / 150 Other: Date of Last Bowel Movement 09/14/18 09/14/18 # Bowel Movements 1 Weight On Admission 121 kg - Constitutional no acute distress, morbidly obese, chronically ill appearing - Routine HEENT Exam Head: Present: normocephalic - Routine Neck Exam Comments: Trach collar - Routine Respiratory Exam Present: CTA bilaterally. Absent: respiratory distress - Routine Cardiovascular Exam Present: RRR - Routine Abdominal Exam Present: soft, normoactive bowel sounds, tenderness. Absent: guarding, firm Comments: PEG tube site with erythema, mildly tender to palpation on exam - Routine Skin Exam Present: dry, warm - Routine Neurological Exam Present: alert, oriented X3 - Routine Psychiatric Exam Present: normal affect, cooperative - Urinary Catheter Management Straight Cath placed during this visit: no <Connie Gan - Last Filed: 09/14/18 12:19> Vital signs: Vital Signs 09/13/18 18:30 09/13/18 20:00 09/13/18 21:00 Temperature 98.7 F Pulse Rate 120 H 134 H Respiratory Rate 20 29 H Blood Pressure 154/86 H 134/57 L Pulse Oximetry 96 96 100 09/14/18 00:00 09/14/18 02:00 09/14/18 04:00 Temperature Pulse Rate 122 H 119 H 108 H Respiratory Rate 29 H 26 H Blood Pressure 115/58 L 125/54 L Pulse Oximetry 96 96 09/14/18 06:00 09/14/18 08:00 09/14/18 10:00 Temperature 99.1 F Pulse Rate 112 H 94 H 98 H Respiratory Rate 24 Blood Pressure 106/54 L Pulse Oximetry 95 09/14/18 12:00 09/14/18 16:00 Temperature 99.2 F 99.1 F Pulse Rate 105 H 85 Respiratory Rate 27 H 23 Blood Pressure 133/70 117/71 Pulse Oximetry 96 98 Intake & Output 09/13/18 09/14/18 09/14/18 18:59 06:59 18:59 Intake Total 700 / 700 447 / 447 Output Total 150 / 150 Balance 550 / 550 447 / 447 Weight 109.769 kg 121 kg Intake: IV 700 / 700 447 / 447 NS Inj 1,000 ML @ 120 mls/hr IV 347 / 347 .CONT .Q8H20M [facility] Rx#:[id number] Maxipime Inj 1,000 MG In NS Inj 100 / 100 100 / 100 100 ML @ 200 mls/hr IV.SIG Q8H [facility] Rx#:[id number] Vancomycin Inj 1,000 MG In NS 500 / 500 Inj 250 ML @ 250 mls/hr IV.SIG ONCE ONE Rx#:[id number] Flagyl 500 MG Inj 100 ML @ 100 100 / 100 mls/hr IV.SIG Q8H [facility] Rx#: [id number] Oral 0 / 0 Output: Urine Amount (Catheter) 150 / 150 Straight 150 / 150 Other: Date of Last Bowel Movement 09/14/18 09/14/18 # Bowel Movements 1 Weight On Admission 121 kg - Urinary Catheter Management Straight Cath placed during this visit: no <Alec Orr - Last Filed: 09/14/18 17:22> Results - Labs CBC & Chem 7: 09/14/18 06:02 09/14/18 06:02 Laboratory Results - last 24 hr 09/13/18 09/13/18 09/13/18 12:50 12:50 12:50 WBC 14.6 H RBC 4.18 Hgb 12.5 Hct 39.2 MCV 93.6 MCH 29.9 MCHC 31.9 L RDW 17.7 H Plt Count 242 MPV 7.5 Neut % (Auto) 85.2 H Lymph % (Auto) 7.3 L [place] % (Auto) 6.6 Eos % (Auto) 0.5 Baso % (Auto) 0.4 Neut # (Auto) 12.4 H Lymph # (Auto) 1.1 [place] # (Auto) 1.0 H Eos # (Auto) 0.1 Baso # (Auto) 0.1 WBC Differential . Differential Comment Auto diff final PT INR Sodium 139 Potassium 5.0 Chloride 101 Carbon Dioxide 30.6 Anion Gap 7 BUN 20 H Creatinine 0.94 Estimated GFR 59 L Random Glucose 165 H Lactic Acid 1.3 Calcium 8.3 L Magnesium 1.8 Total Bilirubin 0.6 AST 28 ALT 28 Alkaline Phosphatase 74 Total Protein 6.5 Albumin 2.5 L Urine Color Urine Clarity Urine pH Ur Specific [place] Urine Protein Urine Glucose (UA) Urine Ketones Urine Occult Blood Urine Nitrate Urine Bilirubin Urine Urobilinogen Ur Leukocyte Esterase Urine RBC Urine WBC Urine Bacteria Urine Mucus Micro UA Comment Ur Microscopic Review Urine Culture Comments Nasal Screen MRSA (PCR) 09/13/18 09/13/18 09/13/18 20:45 21:15 22:50 WBC RBC Hgb Hct MCV MCH MCHC RDW Plt Count MPV Neut % (Auto) Lymph % (Auto) [place] % (Auto) Eos % (Auto) Baso % (Auto) Neut # (Auto) Lymph # (Auto) [place] # (Auto) Eos # (Auto) Baso # (Auto) WBC Differential Differential Comment PT 27.4 H INR 2.7 Sodium Potassium Chloride Carbon Dioxide Anion Gap BUN Creatinine Estimated GFR Random Glucose Lactic Acid Calcium Magnesium Total Bilirubin AST ALT Alkaline Phosphatase Total Protein Albumin Urine Color Yellow Urine Clarity Hazy H Urine pH 5.0 Ur Specific [place] 1.019 Urine Protein 30 H Urine Glucose (UA) Negative Urine Ketones Trace H Urine Occult Blood Negative Urine Nitrate Positive H Urine Bilirubin Negative Urine Urobilinogen 2.0 H Ur Leukocyte Esterase Trace H Urine RBC 1 Urine WBC 2 Urine Bacteria Moderate H Urine Mucus Few H Micro UA Comment Cath-culture ind Ur Microscopic Review Not Reportable Urine Culture Comments Cath-cult indicated Nasal Screen MRSA (PCR) Mrsa detected 09/14/18 09/14/18 09/14/18 06:02 06:02 06:02 WBC 12.1 H RBC 3.75 L Hgb 11.4 L Hct 34.2 L MCV 91.4 MCH 30.3 MCHC 33.2 RDW 17.4 H Plt Count 239 MPV 7.9 Neut % (Auto) 85.1 H Lymph % (Auto) 6.9 L [place] % (Auto) 7.3 Eos % (Auto) 0.3 Baso % (Auto) 0.4 Neut # (Auto) 10.3 H Lymph # (Auto) 0.8 L [place] # (Auto) 0.9 Eos # (Auto) 0.0 Baso # (Auto) 0.0 WBC Differential . Differential Comment Auto diff final PT 23.6 H INR 2.3 Sodium 142 Potassium 4.2 D Chloride 106 Carbon Dioxide 28.8 Anion Gap 7 BUN 20 H Creatinine 0.83 Estimated GFR 68 L Random Glucose 183 H Lactic Acid Calcium 7.9 L Magnesium Total Bilirubin AST ALT Alkaline Phosphatase Total Protein Albumin Urine Color Urine Clarity Urine pH Ur Specific [place] Urine Protein Urine Glucose (UA) Urine Ketones Urine Occult Blood Urine Nitrate Urine Bilirubin Urine Urobilinogen Ur Leukocyte Esterase Urine RBC Urine WBC Urine Bacteria Urine Mucus Micro UA Comment Ur Microscopic Review Urine Culture Comments Nasal Screen MRSA (PCR) Microbiology 09/13/18 22:50 Wound - Abdominal Gram Stain - Final 09/13/18 22:50 Wound - Abdominal Wound Culture - Preliminary 09/13/18 12:55 Blood - Peripheral Aerobic Blood Culture - Preliminary Enterococcus faecalis Enterococcus faecium 09/13/18 12:55 Blood - Peripheral Anaerobic Blood Culture - Preliminary No growth in 1 day 09/13/18 12:50 Blood - Peripheral Aerobic Blood Culture - Preliminary No growth in 1 day 09/13/18 12:50 Blood - Peripheral Anaerobic Blood Culture - Preliminary No growth in 1 day - Imaging Impressions Chest X-Ray 09/13/18 12:51 CONCLUSION: Resolution of previously seen pulmonary edema. Abdomen/Pelvis CT 09/13/18 13:09 CONCLUSION: 1. The gastrostomy tube is pulled back into the superficial subcutaneous tissues, almost out. 2. Debris and induration along the tract through the subcutaneous tissues to the peritoneal cavity without evidence of intraperitoneal abscess, air or fluid 3. Pelvic findings of undetermined significance which appear grossly unchanged. <Connie Gan - Last Filed: 09/14/18 12:19> - Labs CBC & Chem 7: 09/14/18 06:02 09/14/18 06:02 Laboratory Results - last 24 hr 09/13/18 09/13/18 09/13/18 20:45 21:15 22:50 WBC RBC Hgb Hct MCV MCH MCHC RDW Plt Count MPV Neut % (Auto) Lymph % (Auto) [place] % (Auto) Eos % (Auto) Baso % (Auto) Neut # (Auto) Lymph # (Auto) [place] # (Auto) Eos # (Auto) Baso # (Auto) WBC Differential Differential Comment PT 27.4 H INR 2.7 Sodium Potassium Chloride Carbon Dioxide Anion Gap BUN Creatinine Estimated GFR Random Glucose Calcium Urine Color Yellow Urine Clarity Hazy H Urine pH 5.0 Ur Specific [place] 1.019 Urine Protein 30 H Urine Glucose (UA) Negative Urine Ketones Trace H Urine Occult Blood Negative Urine Nitrate Positive H Urine Bilirubin Negative Urine Urobilinogen 2.0 H Ur Leukocyte Esterase Trace H Urine RBC 1 Urine WBC 2 Urine Bacteria Moderate H Urine Mucus Few H Micro UA Comment Cath-culture ind Ur Microscopic Review Not Reportable Urine Culture Comments Cath-cult indicated Nasal Screen MRSA (PCR) Mrsa detected 09/14/18 09/14/18 09/14/18 06:02 06:02 06:02 WBC 12.1 H RBC 3.75 L Hgb 11.4 L Hct 34.2 L MCV 91.4 MCH 30.3 MCHC 33.2 RDW 17.4 H Plt Count 239 MPV 7.9 Neut % (Auto) 85.1 H Lymph % (Auto) 6.9 L [place] % (Auto) 7.3 Eos % (Auto) 0.3 Baso % (Auto) 0.4 Neut # (Auto) 10.3 H Lymph # (Auto) 0.8 L [place] # (Auto) 0.9 Eos # (Auto) 0.0 Baso # (Auto) 0.0 WBC Differential . Differential Comment Auto diff final PT 23.6 H INR 2.3 Sodium 142 Potassium 4.2 D Chloride 106 Carbon Dioxide 28.8 Anion Gap 7 BUN 20 H Creatinine 0.83 Estimated GFR 68 L Random Glucose 183 H Calcium 7.9 L Urine Color Urine Clarity Urine pH Ur Specific [place] Urine Protein Urine Glucose (UA) Urine Ketones Urine Occult Blood Urine Nitrate Urine Bilirubin Urine Urobilinogen Ur Leukocyte Esterase Urine RBC Urine WBC Urine Bacteria Urine Mucus Micro UA Comment Ur Microscopic Review Urine Culture Comments Nasal Screen MRSA (PCR) Microbiology 09/13/18 22:50 Wound - Abdominal Gram Stain - Final 09/13/18 22:50 Wound - Abdominal Wound Culture - Preliminary 09/13/18 12:55 Blood - Peripheral Aerobic Blood Culture - Preliminary Enterococcus faecalis Enterococcus faecium 09/13/18 12:55 Blood - Peripheral Anaerobic Blood Culture - Preliminary No growth in 1 day 09/13/18 12:50 Blood - Peripheral Aerobic Blood Culture - Preliminary No growth in 1 day 09/13/18 12:50 Blood - Peripheral Anaerobic Blood Culture - Preliminary No growth in 1 day - Imaging Impressions Videofluoroscopic Swallow 09/14/18 00:00 CONCLUSION: No evidence of penetration or aspiration. See full report by the speech pathologist. <Alec Orr E - Last Filed: 09/14/18 17:22> Assessment and Plan (1) Complication of feeding tube Status: Acute Code(s): K94.23 - Gastrostomy malfunction - Plan . 09/14/2018 Displaced PEG tube/post removal of PEG tube on 09/13/2018 and emergency room at [facility] Patient has history of dysphagia, morbid obesity with trach. Family reports 2- week onset of tenderness with PEG tube appearing to be dislodged. Family reports that patient had tube feeding and was having meds administered through same at home. Of note, they endorse that patient has been eating a number of things by mouth without any noted difficulty, coughing, or choking. They report patient has been eating rice, shredded meat, applesauce, fried eggs , pancakes, grits, and beans. Speech evaluation noted this a.m., patient able to tolerate applesauce with medication without any noted difficulty. Will order modified barium swallow to evaluate further. Plan -Modified barium swallow today -N.p.o. with mouth swabs if needed -Continue IV antibiotics for cellulitis surrounding PEG tube site -PEG replacement if required -Will advance diet according to results of modified barium swallow -Supportive care -Further recommendations to follow based on patient status and findings This patient has been seen by myself and Dr. Orr and this note is written on his behalf - Attending Attestation Dr. Orr <Connie Gan - Last Filed: 09/14/18 12:19> (1) Complication of feeding tube Status: Acute Code(s): K94.23 - Gastrostomy malfunction - Plan Patient seen and examined Agree with above Continue with current supportive care Monitor labs Apparently patient passed speech evaluation a modified barium swallow is also unremarkable Patient will not be needing PEG tube replacement We will sign off <Alec Orr - Last Filed: 09/14/18 17:22>
[2018-09-14] MEDS ORDERED: Vancomycin Inj 1,750 MG in Sodium Chlor 0.9% Inj 500 ML IV.SIG SCH (14:00)
--- NOTE | 2018-09-14 15:40 | FL ---
EXAM DATE: 09/14/2018 12:00 AM EDT AGE/SEX: 68 years / Female INDICATIONS: Dysphagia. CLINICAL DATA: This is the patient's initial encounter. Patient reports that signs and symptoms have been present for 3 days and indicates a pain score of Nonresponsive. MEDICAL/SURGICAL HISTORY: Hypertension. depression, diabetes . feeding tube COMPARISON: No prior exams available for comparison. FLUORO TIME: 1.4 IMAGE COUNT: 0 FINDINGS: A modified barium swallow was performed with speech pathology. Patient was given a variety of liquids to swallow. There was no evidence of penetration or aspiration. For a full detailed report, see report by the speech pathologist. CONCLUSION: No evidence of penetration or aspiration. See full report by the speech pathologist. Electronically signed by: Pancho Mccartney MD 09/14/2018 3:38 PM EDT
--- NOTE | 2018-09-14 17:02 | P.CONID ---
History of Present Illness Service: Infectious Disease Consult date: 09/14/18 Requesting Physician: George Reeves Reason for Consult: Evaluate patient with bacteremia Primary Care Provider: No Primary Care Physician Chief Complaint: PEG tube displaced History of Present Illness: Patient seen and examined. Records reviewed. Patient is a 68-year-old female, brought into the hospital for evaluation of her PEG tube. Patient was hospitalized here back in May and at that time she was treated for sepsis. She had a UTI, and also had what looks like an infection on 1 of her toes on the right foot. She ended up on the respirator, and has required continued ventilatory support, requiring tracheostomy. She also had a PEG tube placed at that time. She was discharged to [facility] towards the end of May, and apparently she was discharged around the second week in August and has been at home. Patient gets tube feedings 24 hours a day, and she still is able to eat some. She has a Passy- David valve on her trach. She stays mostly in bed, and sometimes dangles at the side of the bed, and she could stand up but does not really do any ambulation. Recently apparently she has been having problem with leaking around the PEG tube. She was also noted to have some swelling around the PEG tube site. She presented to the hospital, and she had a fever of 100.9. Her white count is elevated at 14,000. She had a CT of the abdomen and pelvis which did not show any evidence of intra-abdominal abscess, but it shows that the PEG is almost out with some debris along the PEG tube tract and some into the peritoneal cavity. The PEG was removed in the ED. She had a swallowing eval with no evidence of aspiration. Patient currently is on a T-piece. She denies any shortness of breath. Her abdominal pain is better. She is awake and alert. Her temperatures are better. BP is stable and she is not on any pressor support. 2 blood cultures were done in the ED and one blood culture is currently going growing enterococcus. Her chest x-ray is normal. Infectious disease consultation has been requested to evaluate the patient with positive blood culture. Review of Systems Constitutional: Reports fever(s), Denies chills, Denies night sweats Eyes: Denies discharge, Denies dry eyes Ears, Nose, Mouth, and Throat: Reports difficulty swallowing, Denies lip swelling, Denies nasal discharge, Denies sore throat Cardiovascular: Denies chest pain, Denies shortness of breath Respiratory: Denies cough, Denies shortness of breath Gastrointestinal: Reports abdominal pain, Reports difficulty swallowing, Denies nausea, Denies pain with swallowing, Denies vomiting Genitourinary: Denies blood in urine Musculoskeletal: Reports muscle weakness, Denies joint pain, Denies joint swelling Skin/Breast: Denies rash Neurologic: Denies headache(s) PMF - History History Provided By: Patient, Family Member, Medical Record - Medical History Medical History: Medical History (Last Reviewed 09/14/18 @ 11:25 by Radha Teixeira) MDRO (multiple drug resistant organisms) resistance Onset Date: ~09/13/18 Depression Diabetes Hypertension Hypertriglyceridemia Morbid obesity - Surgical History Surgical History: Surgical History (Last Reviewed 09/14/18 @ 11:25 by Radha Teixeira) Hx of tubal ligation - Family History Family History: Family History (Last Reviewed 09/14/18 @ 11:25 by Radha Teixeira) Grandparent Colon cancer - Tobacco History Second Hand Smoke Exposure: No Tobacco Use In Past 30 Days: No Smoking Status: Former smoker Tobacco Type: Cigarettes Packs Per Day: 2 Years Smoked: 40 - Alcohol History How Often Do You Have a Drink Containing Alcohol: Never - Substance Use History Substance History: No History of Abuse - Travel History Recent Travel in the [place] Within the Last 8 Weeks: No Recent Travel Out of the Country Within the Last 8 Weeks: No - Immunization History Tetanus Immunization: Unsure Medications and Allergies Active Medications: Active Medications Acetaminophen (Tylenol) 650 mg PO Q4H PRN PRN Reason: Temp > 100.4 Albuterol (Duoneb Neb (Prn)) 1 ampul INH Q4HR NEB PRN PRN Reason: SHORTNESS OF BREATH Chlorhexidine Gluconate (Chlorhexidine 2% Cloth) 3 pack TOPICAL DAILY@0400 [facility] Stop: 09/19/18 03:59 Last Admin: 09/14/18 05:18 Dose: 3 pack Chlorhexidine Gluconate (Chlorhexidine 2% Cloth) 3 pack TOPICAL DAILY@0400 PRN PRN Reason: Extra cloth needed Stop: 09/19/18 03:59 Citalopram Hydrobromide (Celexa) 40 mg PO DAILY [facility] Last Admin: 09/14/18 10:17 Dose: 40 mg Digoxin (Lanoxin) 125 mcg PO DAILY [facility] Last Admin: 09/14/18 08:41 Dose: 125 mcg Diltiazem HCl (Cardizem Inj) 5 mg IV.PUSH UNSCH PRN PRN Reason: SEE LABEL COMMENTS Last Admin: 09/14/18 02:34 Dose: 5 mg Hyoscyamine (Levsin) 0.125 mg PO Q3H PRN PRN Reason: SECRETIONS Sodium Chloride (Ns Inj) 1,000 mls @ 120 mls/hr IV.CONT .Q8H20M [facility] Last Admin: 09/14/18 10:16 Dose: 120 mls/hr Cefepime HCl 1,000 mg/ Sodium (Chloride) 100 mls @ 200 mls/hr IV.SIG Q8H [facility] Last Admin: 09/14/18 16:25 Dose: 200 mls/hr Vancomycin HCl 1,750 mg/ (Sodium Chloride) 517.5 mls @ 250 mls/hr IV.SIG Q18H [facility] Last Admin: 09/14/18 15:50 Dose: 250 mls/hr Miscellaneous Information ([facility] Ordered Lab Info) 0 each OTHER ONCE ONE Stop: 09/16/18 01:46 Pharmacy Profile Note (Vancomycin Consult Pharmacy) 1 each OTHER UNSCH PRN PRN Reason: Pharmacy to dose Pharmacy Profile Note (Coumadin Consult Pharmacy) 1 each OTHER UNSCH PRN PRN Reason: PHARMACY DOCUMENTATION Prednisone (Deltasone) 20 mg PO DAILY [facility] Last Admin: 09/14/18 08:41 Dose: 20 mg Sennosides (Senokot) 17.2 mg PO Q12H PRN PRN Reason: Moderate Constipation Sodium Chloride (Ns Flush) 2 ml IV.FLUSH BID [facility] Last Admin: 09/14/18 09:14 Dose: Not Given Sodium Chloride (Ns Flush) 2 ml IV.FLUSH PRN PRN PRN Reason: FLUSH AFTER USING IV ACCESS Warfarin Sodium (Coumadin) 6 mg PO DAILY@1600 [facility] Last Admin: 09/14/18 16:28 Dose: 6 mg Allergies Allergy/AdvReac Type Severity Reaction Status Date / Time No Known Allergies Allergy Verified 05/30/18 22:08 Home Medications Medication Instructions Recorded Confirmed Type citalopram [Celexa] 40 mg PO DAILY 09/13/18 09/13/18 History famotidine [Pepcid] 20 mg PO BID 09/13/18 09/13/18 History glipizide 5 mg PO BID 09/13/18 09/13/18 History hydrocodone-acetaminophen [Hycet] 10 ml PO Q4HR 09/13/18 09/13/18 History hyoscyamine sulfate [Levsin/SL] 0.125 mg SUBLINGUAL Q3HR PRN 09/13/18 09/13/18 History ipratropium-albuterol 3 ml INHALATION Q4HR PRN 09/13/18 09/13/18 History lorazepam 1 mg PO Q6HR PRN 09/13/18 09/13/18 History metformin 1,000 mg PO BID 09/13/18 09/13/18 History morphine concentrate 5 mg SUBLINGUAL Q3HR PRN 09/13/18 09/13/18 History prednisone 20 mg PO DAILY 09/13/18 09/13/18 History warfarin [Jantoven] 6 mg PO DAILY 09/13/18 09/13/18 History Exam Vital signs: Vital Signs 09/13/18 18:30 09/13/18 20:00 09/13/18 21:00 Temperature 98.7 F Pulse Rate 120 H 134 H Respiratory Rate 20 29 H Blood Pressure 154/86 H 134/57 L Pulse Oximetry 96 96 100 09/14/18 00:00 09/14/18 02:00 09/14/18 04:00 Temperature Pulse Rate 122 H 119 H 108 H Respiratory Rate 29 H 26 H Blood Pressure 115/58 L 125/54 L Pulse Oximetry 96 96 09/14/18 06:00 09/14/18 08:00 09/14/18 10:00 Temperature 99.1 F Pulse Rate 112 H 94 H 98 H Respiratory Rate 24 Blood Pressure 106/54 L Pulse Oximetry 95 09/14/18 12:00 09/14/18 16:00 Temperature 99.2 F 99.1 F Pulse Rate 105 H 85 Respiratory Rate 27 H 23 Blood Pressure 133/70 117/71 Pulse Oximetry 96 98 Intake & Output 09/13/18 09/14/18 09/14/18 18:59 06:59 18:59 Intake Total 700 / 700 447 / 447 Output Total 150 / 150 Balance 550 / 550 447 / 447 Weight 109.769 kg 121 kg Intake: IV 700 / 700 447 / 447 NS Inj 1,000 ML @ 120 mls/hr IV 347 / 347 .CONT .Q8H20M [facility] Rx#:[id number] Maxipime Inj 1,000 MG In NS Inj 100 / 100 100 / 100 100 ML @ 200 mls/hr IV.SIG Q8H [facility] Rx#:[id number] Vancomycin Inj 1,000 MG In NS 500 / 500 Inj 250 ML @ 250 mls/hr IV.SIG ONCE ONE Rx#:[id number] Flagyl 500 MG Inj 100 ML @ 100 100 / 100 mls/hr IV.SIG Q8H [facility] Rx#: [id number] Oral 0 / 0 Output: Urine Amount (Catheter) 150 / 150 Straight 150 / 150 Other: Date of Last Bowel Movement 09/14/18 09/14/18 # Bowel Movements 1 Weight On Admission 121 kg Narrative: Physical Examination GENERAL: Patient is an obese, well-developed female, awake and alert, looks dyspneic when she speaks. Has T-piece SKIN: Cool and dry. No generalized rash, no ecchymoses and no evidence of embolic lesions. HEAD: Atraumatic. Normocephalic. No temporal wasting, or tenderness. EYES: Slinger conjunctiva. No petechia or hemorrhage. Pupils equal, round and reactive to light. Extraocular movements full and intact. No scleral icterus. No injection or drainage. EARS, NOSE AND THROAT: Nose without bleeding or purulent nasal discharge. No sinus tenderness. Mucous membranes pink and moist. No oral lesions noted. NECK: Tracheostomy site looks ok. Supple and not tender, no meningeal signs CARDIOVASCULAR: Tachycardic, irregular rate and rhythm. No murmurs, rubs or gallops heard RESPIRATORY: Coarse breath sounds sully, with scattered rhonchi ABDOMEN: Soft, obese, cecelia PEG site about 1.c cm opening, with surrounding erythema and induration, and barium coming out of opening when I squeezed around the site. Has tenderness, and no crepitus. Bowel sounds present and normoactive. No guarding. No rebound. Has reducible umbilical hernia EXTREMITIES: No clubbing, cyanosis, or edema. No joint effusion, has good ROM. No calf tenderness. NO evidence of infection in any of her toes NEUROLOGICAL: Awake and alert. Cranial nerves grossly intact. Motor grossly within normal limits. PSYCHIATRIC: Normal affect, calm and cooperative. LINE: No evidence of infection Results - Labs CBC & Chem 7: 09/16/18 10:01 09/16/18 10:01 Labs: Laboratory Results - last 24 hr 09/13/18 09/13/18 09/13/18 20:45 21:15 22:50 WBC RBC Hgb Hct MCV MCH MCHC RDW Plt Count MPV Neut % (Auto) Lymph % (Auto) [place] % (Auto) Eos % (Auto) Baso % (Auto) Neut # (Auto) Lymph # (Auto) [place] # (Auto) Eos # (Auto) Baso # (Auto) WBC Differential Differential Comment PT 27.4 H INR 2.7 Sodium Potassium Chloride Carbon Dioxide Anion Gap BUN Creatinine Estimated GFR Random Glucose Calcium Urine Color Yellow Urine Clarity Hazy H Urine pH 5.0 Ur Specific [place] 1.019 Urine Protein 30 H Urine Glucose (UA) Negative Urine Ketones Trace H Urine Occult Blood Negative Urine Nitrate Positive H Urine Bilirubin Negative Urine Urobilinogen 2.0 H Ur Leukocyte Esterase Trace H Urine RBC 1 Urine WBC 2 Urine Bacteria Moderate H Urine Mucus Few H Micro UA Comment Cath-culture ind Ur Microscopic Review Not Reportable Urine Culture Comments Cath-cult indicated Nasal Screen MRSA (PCR) Mrsa detected 09/14/18 09/14/18 09/14/18 06:02 06:02 06:02 WBC 12.1 H RBC 3.75 L Hgb 11.4 L Hct 34.2 L MCV 91.4 MCH 30.3 MCHC 33.2 RDW 17.4 H Plt Count 239 MPV 7.9 Neut % (Auto) 85.1 H Lymph % (Auto) 6.9 L [place] % (Auto) 7.3 Eos % (Auto) 0.3 Baso % (Auto) 0.4 Neut # (Auto) 10.3 H Lymph # (Auto) 0.8 L [place] # (Auto) 0.9 Eos # (Auto) 0.0 Baso # (Auto) 0.0 WBC Differential . Differential Comment Auto diff final PT 23.6 H INR 2.3 Sodium 142 Potassium 4.2 D Chloride 106 Carbon Dioxide 28.8 Anion Gap 7 BUN 20 H Creatinine 0.83 Estimated GFR 68 L Random Glucose 183 H Calcium 7.9 L Urine Color Urine Clarity Urine pH Ur Specific [place] Urine Protein Urine Glucose (UA) Urine Ketones Urine Occult Blood Urine Nitrate Urine Bilirubin Urine Urobilinogen Ur Leukocyte Esterase Urine RBC Urine WBC Urine Bacteria Urine Mucus Micro UA Comment Ur Microscopic Review Urine Culture Comments Nasal Screen MRSA (PCR) - Imaging Impressions Videofluoroscopic Swallow 09/14/18 00:00 CONCLUSION: No evidence of penetration or aspiration. See full report by the speech pathologist. Chest X-Ray 09/13/18 12:51 CONCLUSION: Resolution of previously seen pulmonary edema. Abdomen/Pelvis CT 09/13/18 13:09 CONCLUSION: 1. The gastrostomy tube is pulled back into the superficial subcutaneous tissues, almost out. 2. Debris and induration along the tract through the subcutaneous tissues to the peritoneal cavity without evidence of intraperitoneal abscess, air or fluid 3. Pelvic findings of undetermined significance which appear grossly unchanged. Assessment and Plan - Plan Impression Bacteremia with Enterococcus, ?source due to abdominal wall cellulitis from PEG malposition Abdominal wall cellulitis Respiratory failure, S/P trach, has passey-david valve Hx possible osteo of toe R foot - currently no obvious evidence of infection Recommendation Will use IV Cubicin in case this is VRE Stop Vancomycin Repeat BC Follow C/S and adjust Abx Change Cefepime to Zosyn Add Diflucan Monitor progress Will determine course of Abx once work-up is completed I will follow along with you Thank you for this consultation D/W NEENA
[2018-09-14] MEDS ORDERED: Dextrose 50% in Water 50 ML Vial IV.PUSH PRN (22:51)
--- NOTE | 2018-09-14 22:54 | P.PNIM ---
Subjective Interval history: Patient seen today around 1 PM. Patient has tracheostomy, is mouthing words very Effectively. Patient indicates that she is without pain. Physical Exam Vital signs: Vital Signs 09/14/18 00:00 09/14/18 02:00 09/14/18 04:00 Temperature Pulse Rate 122 H 119 H 108 H Respiratory Rate 29 H 26 H Blood Pressure 115/58 L 125/54 L Pulse Oximetry 96 96 09/14/18 06:00 09/14/18 08:00 09/14/18 10:00 Temperature 99.1 F Pulse Rate 112 H 94 H 98 H Respiratory Rate 24 Blood Pressure 106/54 L Pulse Oximetry 95 09/14/18 12:00 09/14/18 16:00 Temperature 99.2 F 99.1 F Pulse Rate 105 H 85 Respiratory Rate 27 H 23 Blood Pressure 133/70 117/71 Pulse Oximetry 96 98 Intake & Output 09/14/18 09/14/18 09/15/18 06:59 18:59 06:59 Intake Total 700 / 700 1994 Output Total 150 / 150 0 / 0 Balance 550 / 550 1994 Weight 121 kg Intake: IV 700 / 700 1994 NS Inj 1,000 ML @ 120 mls/hr IV 1347 / 1347 .CONT .Q8H20M [facility] Rx#:[id number] Maxipime Inj 1,000 MG In NS Inj 100 / 100 200 / 200 100 ML @ 200 mls/hr IV.SIG Q8H [facility] Rx#:[id number] Vancomycin Inj 1,000 MG In NS 500 / 500 Inj 250 ML @ 250 mls/hr IV.SIG ONCE ONE Rx#:[id number] Vancomycin Inj 1,750 MG In NS 448 / 448 Inj 500 ML @ 250 mls/hr IV.SIG Q18H [facility] Rx#:[id number] Flagyl 500 MG Inj 100 ML @ 100 100 / 100 mls/hr IV.SIG Q8H [facility] Rx#: [id number] Oral 0 / 0 Output: Urine 0 / 0 Urine Amount (Catheter) 150 / 150 Straight 150 / 150 Other: Date of Last Bowel Movement 09/14/18 09/14/18 # Bowel Movements 1 Weight On Admission 121 kg Narrative: GENERAL: obese female lying in bed. Tracheostomy in place. Mouth was appropriate words effectively. Appears comfortable SKIN: Warm and dry. HEAD: Normocephalic. EYES: No scleral icterus. No injection or drainage. NECK: Supple, trachea midline. difficult to assess JVD secondary to body habitus CARDIOVASCULAR: Regular rate and rhythm without murmurs, gallops, or rubs. RESPIRATORY: distant Breath sounds equal bilaterally. No accessory muscle use. GASTROINTESTINAL: Abdomen soft, non-tender, nondistended. PEG tube site dressed , with minimal surrounding erythema. MUSCULOSKELETAL: No cyanosis, or edema. BACK: Nontender without obvious deformity. No CVA tenderness. - Urinary Catheter Management Straight Cath placed during this visit: no Results - Labs CBC & Chem 7: 09/14/18 06:02 09/14/18 06:02 Laboratory Results - last 24 hr 09/13/18 09/13/18 09/14/18 20:45 22:50 06:02 WBC 12.1 H RBC 3.75 L Hgb 11.4 L Hct 34.2 L MCV 91.4 MCH 30.3 MCHC 33.2 RDW 17.4 H Plt Count 239 MPV 7.9 Neut % (Auto) 85.1 H Lymph % (Auto) 6.9 L [place] % (Auto) 7.3 Eos % (Auto) 0.3 Baso % (Auto) 0.4 Neut # (Auto) 10.3 H Lymph # (Auto) 0.8 L [place] # (Auto) 0.9 Eos # (Auto) 0.0 Baso # (Auto) 0.0 WBC Differential . Differential Comment Auto diff final PT INR Sodium Potassium Chloride Carbon Dioxide Anion Gap BUN Creatinine Estimated GFR Random Glucose Calcium Urine Color Yellow Urine Clarity Hazy H Urine pH 5.0 Ur Specific [place] 1.019 Urine Protein 30 H Urine Glucose (UA) Negative Urine Ketones Trace H Urine Occult Blood Negative Urine Nitrate Positive H Urine Bilirubin Negative Urine Urobilinogen 2.0 H Ur Leukocyte Esterase Trace H Urine RBC 1 Urine WBC 2 Urine Bacteria Moderate H Urine Mucus Few H Micro UA Comment Cath-culture ind Ur Microscopic Review Not Reportable Urine Culture Comments Cath-cult indicated Nasal Screen MRSA (PCR) Mrsa detected 09/14/18 09/14/18 06:02 06:02 WBC RBC Hgb Hct MCV MCH MCHC RDW Plt Count MPV Neut % (Auto) Lymph % (Auto) [place] % (Auto) Eos % (Auto) Baso % (Auto) Neut # (Auto) Lymph # (Auto) [place] # (Auto) Eos # (Auto) Baso # (Auto) WBC Differential Differential Comment PT 23.6 H INR 2.3 Sodium 142 Potassium 4.2 D Chloride 106 Carbon Dioxide 28.8 Anion Gap 7 BUN 20 H Creatinine 0.83 Estimated GFR 68 L Random Glucose 183 H Calcium 7.9 L Urine Color Urine Clarity Urine pH Ur Specific [place] Urine Protein Urine Glucose (UA) Urine Ketones Urine Occult Blood Urine Nitrate Urine Bilirubin Urine Urobilinogen Ur Leukocyte Esterase Urine RBC Urine WBC Urine Bacteria Urine Mucus Micro UA Comment Ur Microscopic Review Urine Culture Comments Nasal Screen MRSA (PCR) Microbiology 09/13/18 22:50 Wound - Abdominal Gram Stain - Final 09/13/18 22:50 Wound - Abdominal Wound Culture - Preliminary 09/13/18 12:55 Blood - Peripheral Aerobic Blood Culture - Preliminary Enterococcus faecalis Enterococcus faecium 09/13/18 12:55 Blood - Peripheral Anaerobic Blood Culture - Preliminary No growth in 1 day 09/13/18 12:50 Blood - Peripheral Aerobic Blood Culture - Preliminary No growth in 1 day 09/13/18 12:50 Blood - Peripheral Anaerobic Blood Culture - Preliminary No growth in 1 day - Imaging Impressions Videofluoroscopic Swallow 09/14/18 00:00 CONCLUSION: No evidence of penetration or aspiration. See full report by the speech pathologist. Assessment and Plan - Assessment (1) Tachycardia Code(s): R00.0 - Tachycardia, unspecified Status: Acute (2) Acute UTI (urinary tract infection) Code(s): N39.0 - Urinary tract infection, site not specified Status: Acute (3) Respiratory failure Code(s): J96.90 - Respiratory failure, unspecified, unspecified whether with hypoxia or hypercapnia Status: Acute (4) Complication of feeding tube Code(s): K94.23 - Gastrostomy malfunction Status: Acute - Plan Patient is a 68-year-old female with a past medical history of depression, diabetes, hypertension, hyperlipidemia, morbid obesity who was recently hospitalized May 2018 for UTI/sepsis. Hospitalization course at that admission was complicated and patient ended up being discharged with a trach and PEG tube. She returned to the emergency room on 09/13/18 with erythema and swelling around her PEG site and a partially displaced PEG tube. PEG tube displaced -GI consulted; PEG tube removed by GI 09/13 in the ED. -N.p.o. for now; speech therapy ordered to evaluate swallowing = Status post swallow study. Cleared for soft diet A. fib/tachycardia -On scheduled warfarin; check INR -Restart warfarin; pharmacy consult for assistance in management ordered -EKG ordered = Heart rate controlled on digoxin. Was on when necessary IV diltiazem which has not been needed today. Anticoagulation on warfarin which is therapeutic Likely tachycardia was secondary to infection. //Sepsis on admission //Possible peritoneal infection /PEG site infection -Heart rate variable 120s-150s; T=100.9. Lactic acid 1.3; BP stable -start cefepime and Vanco -CT abdomen pelvis did not indicate abscess -Cultures pending = 09/14. Sepsis on admission with leukocytosis, tachycardia, tachypnea, temperature of 100.9. PEG tube site cellulitis. Patient with positive enterococcus in blood. Wound cultures from PEG site pending. Have consulted ID who is added anaerobic and antifungal coverage. Appreciate assistance. Follow-up repeat cultures Respiratory failure with trach (placed 06/15/18) -Nebulizers ordered -Ventilator bundle = On 28% blow-by via trach. Appreciate respiratory assistance. Possible UTI -Patient previously admitted for sepsis/UTI -UA with culture pending Continue other home meds as indicated. Monitor electrolytes DVT prophylaxis: On warfarin, therapeutic Discharge planning: PT order for evaluation. Discussed Condition With: patient, nurse Discharge Planning: continue treatment for sepsis. Will likely need rehabilitation.
[2018-09-14] MEDS: Piperacil/Tazo 3.375 GM Premix 50 ML IV.SIG SCH (22:55)
[2018-09-14] MEDS: DAPTOmycin Inj 720 MG in Sodium Chlor 0.9% Inj 100 ML IV.SIG SCH (22:57)
[2018-09-15] MEDS: Piperacil/Tazo 3.375 GM Premix 50 ML IV.SIG SCH ×4 (03:55→22:33)
[2018-09-15] MEDS: Chlorhexidine Gluconate 2% 1 Pack (2 Cloths) TOPICAL SCH (05:08)
[2018-09-15] MEDS: Sod Chloride 0.9% Inj 1,000 ML IV.CONT SCH ×3 (08:35→22:34)
[2018-09-15 08:48] LABS: INR 3.9 Ratio; Prothrombin Time 39.5 sec (9.8-11.6)
[2018-09-15] MEDS: Insulin NovoLOG Aspart Correctional Sugar Inj SQ SCH ×4 (09:16→22:39)
[2018-09-15] MEDS: Digoxin 125 MCG Tablet PO SCH (09:20)
[2018-09-15] MEDS: predniSONE 20 MG Tablet PO SCH (09:20)
--- NOTE | 2018-09-15 14:12 | P.PN ---
Subjective Interval history: This is a pleasant 68 y/o Female with Depression, DM II, Hypertension, Hyperlipidemia, Morbid Obesity recently Hospitalized May 2018, UTI/Sepsis, she was discharged on tracheostomy and PEG tube. She returned to the emergency room on 09/13/18 with erythema and swelling around her PEG site and a partially displaced PEG tube. Patient seen today around 1 PM. Patient has tracheostomy. 09/15: ID specialist following, patient has Bacteremia with Enterococcus, source probable to abdominal Wall Cellulitis from PEG tube malposition, on Daptomycin, stopped Vancomycin, Zosyn and Diflucan. Discussed with nurse, she obtained abundant purulent tissue after performing expression of the abdominal wall area, with indurated area and erythematous but not found areas to perform any I and D and she is draining on her own, to continue antibiotics and, follow also she was taking Ativan at home and wants to continue in house, will continue low dose. Physical Exam Vital signs: Vital Signs 09/14/18 16:00 09/14/18 20:00 09/15/18 03:25 Temperature 99.1 F 98.4 F 98.8 F Pulse Rate 85 78 76 Respiratory Rate 23 22 24 Blood Pressure 117/71 103/61 110/62 Pulse Oximetry 98 98 96 09/15/18 03:54 09/15/18 08:00 09/15/18 08:38 Temperature 100.1 F H Pulse Rate 83 Respiratory Rate 26 H Blood Pressure 131/65 Pulse Oximetry 95 97 98 09/15/18 12:00 Temperature 100.7 F H Pulse Rate 115 H Respiratory Rate 26 H Blood Pressure 160/80 H Pulse Oximetry 97 Intake & Output 09/14/18 09/15/18 09/15/18 18:59 06:59 18:59 Intake Total 1994 1769.5 / 1769.5 1000 / 1000 Output Total 0 / 0 300 / 300 Balance 1994 1469.5 / 1469.5 1000 / 1000 Weight 125.2 kg Intake: IV 1994 1469.5 / 1469.5 1000 / 1000 NS Inj 1,000 ML @ 120 mls/hr IV 1347 / 1347 1000 / 1000 1000 / 1000 .CONT .Q8H20M [facility] Rx#:[id number] Maxipime Inj 1,000 MG In NS Inj 200 / 200 100 ML @ 200 mls/hr IV.SIG Q8H [facility] Rx#:[id number] Cubicin Inj 720 MG In NS Inj 100 / 100 100 ML @ 200 mls/hr IV.SIG Q24H [facility] Rx#:[id number] Diflucan 400 mg Premix Bag 200 200 / 200 ML @ 100 mls/hr IV.SIG Q24H [facility] Rx#:[id number] Zosyn 3.375 GM Premix 50 ML @ 100 / 100 100 mls/hr IV.SIG Q6H [facility] Rx#: [id number] Vancomycin Inj 1,750 MG In NS 448 / 448 69.5 / 69.5 Inj 500 ML @ 250 mls/hr IV.SIG Q18H [facility] Rx#:[id number] Oral 300 / 300 Output: Urine 0 / 0 300 / 300 Other: Date of Last Bowel Movement 09/14/18 09/15/18 09/15/18 # Bowel Movements 1 Narrative: GENERAL: Morbid obesity, no acute distress. SKIN: Warm and dry. HEAD: Normocephalic. EYES: No scleral icterus. No injection or drainage. NECK: Supple, trachea midline. difficult to assess JVD secondary to body habitus CARDIOVASCULAR: Regular rate and rhythm without murmurs, gallops, or rubs. RESPIRATORY: distant Breath sounds equal bilaterally. No accessory muscle use. GASTROINTESTINAL: Abdomen soft, non-tender, nondistended. PEG tube site with erythema and edema. purulent tissue drainage. indurated area no areas of fluctuation. MUSCULOSKELETAL: No cyanosis, or edema. BACK: Nontender without obvious deformity. No CVA tenderness. - Urinary Catheter Management Straight Cath placed during this visit: no Results - Labs CBC & Chem 7: 09/14/18 06:02 09/14/18 06:02 Laboratory Results - last 24 hr 09/13/18 09/15/18 09/15/18 22:50 07:54 07:54 PT 39.5 H D INR 3.9 POC Glucose Total Creatine Kinase 15 L Urine Color Yellow Urine Clarity Hazy H Urine pH 5.0 Ur Specific [place] 1.019 Urine Protein 30 H Urine Glucose (UA) Negative Urine Ketones Trace H Urine Occult Blood Negative Urine Nitrate Positive H Urine Bilirubin Negative Urine Urobilinogen 2.0 H Ur Leukocyte Esterase Trace H Urine RBC 1 Urine WBC 2 Urine Bacteria Moderate H Urine Mucus Few H Micro UA Comment Cath-culture ind Urine Culture Comments Cath-cult indicated Stl C.difficile DNA Amp St C. diff Tox Epid 027 09/15/18 09/15/18 09/15/18 09:15 10:00 12:39 PT INR POC Glucose 160 H 194 H Total Creatine Kinase Urine Color Urine Clarity Urine pH Ur Specific [place] Urine Protein Urine Glucose (UA) Urine Ketones Urine Occult Blood Urine Nitrate Urine Bilirubin Urine Urobilinogen Ur Leukocyte Esterase Urine RBC Urine WBC Urine Bacteria Urine Mucus Micro UA Comment Urine Culture Comments Stl C.difficile DNA Amp Negative St C. diff Tox Epid 027 Negative Microbiology 09/13/18 22:50 Wound - Abdominal Gram Stain - Final 09/13/18 22:50 Wound - Abdominal Wound Culture - Preliminary Group D Enterococcus Grecia albicans 09/13/18 22:50 Catheterized Urine Urine Culture - Preliminary gram negative rods 09/14/18 19:14 Blood - Peripheral Aerobic Blood Culture - Preliminary No growth in 1 day 09/14/18 19:14 Blood - Peripheral Anaerobic Blood Culture - Preliminary No growth in 1 day 09/14/18 19:09 Blood - Peripheral Aerobic Blood Culture - Preliminary No growth in 1 day 09/14/18 19:09 Blood - Peripheral Anaerobic Blood Culture - Preliminary No growth in 1 day 09/13/18 12:50 Blood - Peripheral Aerobic Blood Culture - Preliminary No growth in 2 days 09/13/18 12:50 Blood - Peripheral Anaerobic Blood Culture - Preliminary No growth in 2 days 09/13/18 12:55 Blood - Peripheral Aerobic Blood Culture - Preliminary Enterococcus faecalis Enterococcus faecium 09/13/18 12:55 Blood - Peripheral Anaerobic Blood Culture - Preliminary No growth in 2 days - Imaging Impressions Chest X-Ray 09/13/18 12:51 CONCLUSION: Resolution of previously seen pulmonary edema. Abdomen/Pelvis CT 09/13/18 13:09 CONCLUSION: 1. The gastrostomy tube is pulled back into the superficial subcutaneous tissues, almost out. 2. Debris and induration along the tract through the subcutaneous tissues to the peritoneal cavity without evidence of intraperitoneal abscess, air or fluid 3. Pelvic findings of undetermined significance which appear grossly unchanged. Videofluoroscopic Swallow 09/14/18 00:00 CONCLUSION: No evidence of penetration or aspiration. See full report by the speech pathologist. Assessment and Plan - Assessment (1) Tachycardia Code(s): R00.0 - Tachycardia, unspecified Status: Acute (2) Acute UTI (urinary tract infection) Code(s): N39.0 - Urinary tract infection, site not specified Status: Acute (3) Respiratory failure Code(s): J96.90 - Respiratory failure, unspecified, unspecified whether with hypoxia or hypercapnia Status: Acute (4) Complication of feeding tube Code(s): K94.23 - Gastrostomy malfunction Status: Acute - Plan This is a pleasant 68 y/o Female with Depression, DM II, Hypertension, Hyperlipidemia, Morbid Obesity recently Hospitalized May 2018, UTI/Sepsis, she was discharged on tracheostomy and PEG tube. She returned to the emergency room on 09/13/18 with erythema and swelling around her PEG site and a partially displaced PEG tube. Patient seen today around 1 PM. Patient has tracheostomy. Partially displaced PEG tube. PEG tube displaced, status post PEG tube removal in ED on 09/13, GI specialist following, NPO status post Swallow test and cleared for clear liquid diet. eating well. A. fib/tachycardia -continue Warfarin, Pharmacy following, Heart rate controlled with digoxin. INR 3.9 on hold Warfarin today Sepsis on admission/probable Peritoneal infection/PEG site infection, Daptomycin and Vancomycin and Diflucan -CT abdomen pelvis did not indicate abscess Sepsis on admission with leukocytosis, tachycardia, tachypnea, temperature of 100.9. PEG tube site cellulitis. Patient with positive enterococcus in blood. Wound cultures from PEG site pending. Have consulted ID who added anaerobic and antifungal coverage. Follow up repeat cultures. Respiratory failure with trach (placed 06/15/18) -Continue bronchodilator, Mucolytic and incentive spirometry. Possible UTI -Patient previously admitted for sepsis/UTI -UA with culture pending Hypertension probably secondary to IV fluids given. Loose stools asked for C Diff test. DVT prophylaxis: On warfarin, therapeutic INR 3.9 on hold Warfarin decreased IV fluids to 84 ml per hour and remove if continue eating well. Code Status: Full Code. Discussed Condition With: Patient and nurse. Discharge Planning: Once cleared for discharge.
--- NOTE | 2018-09-15 15:35 | P.PNID ---
Subjective Remarks: Patient is a 68-year-old female, brought into the hospital for evaluation of her PEG tube. Patient was hospitalized here back in May and at that time she was treated for sepsis. She had a UTI, and also had what looks like an infection on 1 of her toes on the right foot. She ended up on the respirator, and has required continued ventilatory support, requiring tracheostomy. She also had a PEG tube placed at that time. She was discharged to [facility] towards the end of May, and apparently she was discharged around the second week in August and has been at home. Patient gets tube feedings 24 hours a day, and she still is able to eat some. She has a Passy- David valve on her trach. She stays mostly in bed, and sometimes dangles at the side of the bed, and she could stand up but does not really do any ambulation. Recently apparently she has been having problem with leaking around the PEG tube. She was also noted to have some swelling around the PEG tube site. She presented to the hospital, and she had a fever of 100.9. Her white count is elevated at 14,000. She had a CT of the abdomen and pelvis which did not show any evidence of intra-abdominal abscess, but it shows that the PEG is almost out with some debris along the PEG tube tract and some into the peritoneal cavity. The PEG was removed in the ED. She had a swallowing eval with no evidence of aspiration. Patient currently is on a T-piece. She denies any shortness of breath. Her abdominal pain is better. She is awake and alert. Her temperatures are better. BP is stable and she is not on any pressor support. 2 blood cultures were done in the ED and one blood culture is currently going growing enterococcus. Her chest x-ray is normal. Infectious disease consultation has been requested to evaluate the patient with positive blood culture. Notes reviewed D/W RN Febrile today Draining beige/thick fluid out of previous PEG site Tolerating diet No new (+) BC UC with GNR PEG site C/S Enterococcus, Grecia albicans Antibiotics: Zosyn Cubicin Diflucan Lines: PIV Past Medical History: MDRO (multiple drug resistant organisms) resistance Onset Date: ~09/13/18 Depression Diabetes Hypertension Hypertriglyceridemia Morbid obesity Tubal ligation PEG placement Tracheostomy Allergies/Adverse Reactions: Allergies No Known Allergies Allergy (Verified 05/30/18 22:08) Objective Vital Signs 09/14/18 16:00 09/14/18 20:00 09/15/18 03:25 Temperature 99.1 F 98.4 F 98.8 F Pulse Rate 85 78 76 Respiratory Rate 23 22 24 Blood Pressure 117/71 103/61 110/62 Pulse Oximetry 98 98 96 09/15/18 03:54 09/15/18 08:00 09/15/18 08:38 Temperature 100.1 F H Pulse Rate 83 Respiratory Rate 26 H Blood Pressure 131/65 Pulse Oximetry 95 97 98 09/15/18 12:00 Temperature 100.7 F H Pulse Rate 115 H Respiratory Rate 26 H Blood Pressure 160/80 H Pulse Oximetry 97 Intake & Output 09/14/18 09/15/18 09/15/18 18:59 06:59 18:59 Intake Total 1994 1769.5 / 1769.5 1050 / 1050 Output Total 0 / 0 300 / 300 Balance 1994 1469.5 / 1469.5 1050 / 1050 Weight 125.2 kg Intake: IV 1994 1469.5 / 1469.5 1050 / 1050 NS Inj 1,000 ML @ 120 mls/hr IV 1347 / 1347 1000 / 1000 1000 / 1000 .CONT .Q8H20M [facility] Rx#:[id number] Maxipime Inj 1,000 MG In NS Inj 200 / 200 100 ML @ 200 mls/hr IV.SIG Q8H [facility] Rx#:[id number] Cubicin Inj 720 MG In NS Inj 100 / 100 100 ML @ 200 mls/hr IV.SIG Q24H [facility] Rx#:[id number] Diflucan 400 mg Premix Bag 200 200 / 200 ML @ 100 mls/hr IV.SIG Q24H [facility] Rx#:[id number] Zosyn 3.375 GM Premix 50 ML @ 100 / 100 50 / 50 100 mls/hr IV.SIG Q6H [facility] Rx#: [id number] Vancomycin Inj 1,750 MG In NS 448 / 448 69.5 / 69.5 Inj 500 ML @ 250 mls/hr IV.SIG Q18H [facility] Rx#:[id number] Oral 300 / 300 Output: Urine 0 / 0 300 / 300 Other: Date of Last Bowel Movement 09/14/18 09/15/18 09/15/18 # Bowel Movements 1 09/13/18 22:50 Wound - Abdominal Gram Stain - Final 09/13/18 22:50 Wound - Abdominal Wound Culture - Preliminary Group D Enterococcus Grecia albicans 09/13/18 22:50 Catheterized Urine Urine Culture - Preliminary gram negative rods 09/14/18 19:14 Blood - Peripheral Aerobic Blood Culture - Preliminary No growth in 1 day 09/14/18 19:14 Blood - Peripheral Anaerobic Blood Culture - Preliminary No growth in 1 day 09/14/18 19:09 Blood - Peripheral Aerobic Blood Culture - Preliminary No growth in 1 day 09/14/18 19:09 Blood - Peripheral Anaerobic Blood Culture - Preliminary No growth in 1 day 09/13/18 12:50 Blood - Peripheral Aerobic Blood Culture - Preliminary No growth in 2 days 09/13/18 12:50 Blood - Peripheral Anaerobic Blood Culture - Preliminary No growth in 2 days 09/13/18 12:55 Blood - Peripheral Aerobic Blood Culture - Preliminary Enterococcus faecalis Enterococcus faecium 09/13/18 12:55 Blood - Peripheral Anaerobic Blood Culture - Preliminary No growth in 2 days Lab - Hematology Results 09/14/18 06:02 WBC 12.1 H RBC 3.75 L Hgb 11.4 L Hct 34.2 L MCV 91.4 MCH 30.3 MCHC 33.2 RDW 17.4 H Plt Count 239 MPV 7.9 Neut % (Auto) 85.1 H Lymph % (Auto) 6.9 L [place] % (Auto) 7.3 Eos % (Auto) 0.3 Baso % (Auto) 0.4 Neut # (Auto) 10.3 H Lymph # (Auto) 0.8 L [place] # (Auto) 0.9 Eos # (Auto) 0.0 Baso # (Auto) 0.0 WBC Differential . Differential Comment Auto diff final Lab - Chemistry Results 09/14/18 09/15/18 09/15/18 06:02 07:54 09:15 Sodium 142 Potassium 4.2 D Chloride 106 Carbon Dioxide 28.8 Anion Gap 7 BUN 20 H Creatinine 0.83 Estimated GFR 68 L POC Glucose 160 H Random Glucose 183 H Calcium 7.9 L Total Creatine Kinase 15 L 09/15/18 12:39 Sodium Potassium Chloride Carbon Dioxide Anion Gap BUN Creatinine Estimated GFR POC Glucose 194 H Random Glucose Calcium Total Creatine Kinase Imaging: ITS Impressions Chest X-Ray 09/13/18 12:51 CONCLUSION: Resolution of previously seen pulmonary edema. Abdomen/Pelvis CT 09/13/18 13:09 CONCLUSION: 1. The gastrostomy tube is pulled back into the superficial subcutaneous tissues, almost out. 2. Debris and induration along the tract through the subcutaneous tissues to the peritoneal cavity without evidence of intraperitoneal abscess, air or fluid 3. Pelvic findings of undetermined significance which appear grossly unchanged. Videofluoroscopic Swallow 09/14/18 00:00 CONCLUSION: No evidence of penetration or aspiration. See full report by the speech pathologist. Physical Exam: GENERAL: Patient is an obese, well-developed female, awake and alert, On T -piece, not in distress SKIN: Cool and dry. No generalized rash HEAD: Atraumatic. Normocephalic. No temporal wasting, or tenderness. EYES: [place] conjunctiva. No petechia or hemorrhage. Pupils equal, round and reactive to light. Extraocular movements full and intact. No scleral icterus. No injection or drainage. EARS, NOSE AND THROAT: Nose without bleeding or purulent nasal discharge. Mucous membranes pink and moist. No oral lesions noted. NECK: Tracheostomy site looks ok. Supple and not tender, no meningeal signs CARDIOVASCULAR: Tachycardic, irregular rate and rhythm. No murmurs, rubs or gallops heard RESPIRATORY: Coarse breath sounds sully, with scattered rhonchi ABDOMEN: Soft, obese, previous PEG site about 1.5 cm opening, with surrounding erythema and induration, that is improving. Has some beige thick discharge coming out of the site. Tender on palpation around previous PEG site. no crepitus. Bowel sounds present and normoactive. No guarding. No rebound. Has reducible UH EXTREMITIES: No clubbing, cyanosis, or edema. No calf tenderness. NO evidence of infection in any of her toes NEUROLOGICAL: Awake and alert. Cranial nerves grossly intact. Motor grossly within normal limits. PSYCHIATRIC: Normal affect, calm and cooperative. LINE: No evidence of infection Assessment and Plan - Plan Impression Bacteremia with Enterococcus, ?source due to abdominal wall cellulitis from PEG malposition Abdominal wall cellulitis UTI Respiratory failure, S/P trach, has passey-david valve Hx possible osteo of toe R foot - currently no obvious evidence of infection Recommendation Continue IV Cubicin in case this is VRE Continue Zosyn Continue Diflucan Follow C/S and adjust Abx Monitor progress Explained plan to the patient D/W RN
[2018-09-15] MEDS ORDERED: LORazepam 1 MG Tablet ONE (16:36)
[2018-09-15] MEDS: LORazepam 1 MG Tablet PO PRN ×2 (16:45→22:35)
[2018-09-15] MEDS: Morphine Sulfate Oral Liq 10 MG/0.5 ML Syringe SL PRN (16:45)
[2018-09-15] MEDS: DAPTOmycin Inj 720 MG in Sodium Chlor 0.9% Inj 100 ML IV.SIG SCH (22:33)
[2018-09-16] MEDS ORDERED: Pharmacy Ordered Lab Info OTHER ONE (01:45)
[2018-09-16] MEDS: Piperacil/Tazo 3.375 GM Premix 50 ML IV.SIG SCH ×4 (03:40→20:59)
[2018-09-16] MEDS: Sod Chloride 0.9% Inj 1,000 ML IV.CONT SCH ×2 (06:25→16:11)
[2018-09-16] MEDS: Insulin NovoLOG Aspart Correctional Sugar Inj SQ SCH ×4 (08:00→21:13)
[2018-09-16] MEDS: predniSONE 20 MG Tablet PO SCH (09:00)
[2018-09-16] MEDS: Digoxin 125 MCG Tablet PO SCH (09:00)
[2018-09-16 09:20] LABS: INR 2.8 Ratio; Prothrombin Time 28.6 sec (9.8-11.6)
[2018-09-16 10:35] LABS: Baso % (Auto) 0.5 % (0.0-2.0); Eos # (Auto) 0.1 th/mm3 (0.0-0.4); Eos % (Auto) 1.8 % (0.0-4.0); Hematocrit 31.6 % (35.0-46.0); Hemoglobin 10.2 gm/dL (11.6-15.3); Lymph # (Auto) 1.1 th/mm3 (1.0-4.8); Lymph % (Auto) 13.9 % (9.0-44.0); Mean Corpuscular HGB Conc 32.3 % (32.0-36.0); Mean Corpuscular Hemoglobin 30.1 pg (27.0-34.0); Mean Corpuscular Volume 93.3 fL (80.0-100.0); Mean Platelet Volume 7.1 fL (7.0-11.0); Mono # (Auto) 0.6 th/mm3 (0.0-0.9); Mono % (Auto) 7.5 % (0.0-8.0); Neut % (Auto) 76.3 % (16.0-70.0); Platelet Count 228 th/mm3 (150-450); Red Blood Count 3.39 mil/mm3 (4.00-5.30); Red Cell Distribution Width 17.3 % (11.6-17.2); White Blood Count 7.8 th/mm3 (4.0-11.0)
--- NOTE | 2018-09-16 10:38 | P.PNIM ---
Subjective Interval history: This is a pleasant 68 y/o Female with Depression, DM II, Hypertension, Hyperlipidemia, Morbid Obesity recently Hospitalized May 2018, UTI/Sepsis, she was discharged on tracheostomy and PEG tube. She returned to the emergency room on 09/13/18 with erythema and swelling around her PEG site and a partially displaced PEG tube. 09-14 Patient seen today around 1 PM. Patient has tracheostomy, is mouthing words very Effectively. Patient indicates that she is without pain.- 09-15: ID specialist following, patient has Bacteremia with Enterococcus, source probable to abdominal Wall Cellulitis from PEG tube malposition, on Daptomycin, stopped Vancomycin, Zosyn and Diflucan. Discussed with nurse, she obtained abundant purulent tissue after performing expression of the abdominal wall area, with indurated area and erythematous but not found areas to perform any I and D and she is draining on her own, to continue antibiotics and, follow also she was taking Ativan at home and wants to continue in house, will continue low dose. 09-16 passed swallow evaluation PEG NOT REPLACED ON MULTIPLE ANTIBIOTICS PER ID AM LABS PT AND OT PASSED SWALLOW EVAL SEAN RN AND PT HAS DIARRHEA- LACTINEX PRN LOMOTIL Physical Exam Vital signs: Vital Signs 09/15/18 12:00 09/15/18 16:00 09/15/18 20:00 Temperature 100.7 F H 100.6 F H 98.4 F Pulse Rate 115 H 98 H 80 Respiratory Rate 26 H 24 18 Blood Pressure 160/80 H 117/60 121/70 Pulse Oximetry 97 95 97 09/15/18 20:10 09/16/18 00:00 09/16/18 04:00 Temperature 98.5 F 98.6 F Pulse Rate 72 72 Respiratory Rate 16 18 Blood Pressure 111/52 L 118/69 Pulse Oximetry 98 99 96 09/16/18 07:41 09/16/18 08:00 09/16/18 09:50 Temperature 99.1 F Pulse Rate 98 H Respiratory Rate 20 Blood Pressure 122/74 Pulse Oximetry 98 97 98 Intake & Output 09/15/18 09/16/18 09/16/18 18:59 06:59 18:59 Intake Total 1850 / 1850 1400 / 1400 50 / 50 Output Total 1000 / 1000 700 / 700 Balance 850 / 850 700 / 700 50 / 50 Weight 128.1 kg Intake: IV 1100 / 1100 1400 / 1400 50 / 50 NS Inj 1,000 ML @ 84 mls/hr IV. 1000 / 1000 1000 / 1000 CONT .[id number] BECKY Rx#:[id number] Cubicin Inj 720 MG In NS Inj 100 / 100 100 ML @ 200 mls/hr IV.SIG Q24H BECKY Rx#:[id number] Diflucan 400 mg Premix Bag 200 200 / 200 ML @ 100 mls/hr IV.SIG Q24H BECKY Rx#:[id number] Zosyn 3.375 GM Premix 50 ML @ 100 / 100 100 / 100 50 / 50 100 mls/hr IV.SIG Q6H BECKY Rx#: [id number] Oral 750 / 750 Output: Urine 1000 / 1000 700 / 700 Other: Date of Last Bowel Movement 09/15/18 09/16/18 # Bowel Movements 2 0 Narrative: Physical Examination GENERAL: Morbid obesity, no acute distress. SKIN: Warm and dry. EXCEPT AREA AROUND WHERE PEG TUBE WAS- ERYTHEMA AND EDEMA AND SOME DRAINAGE HEAD: Normocephalic. ATRAUMATIC EYES: No scleral icterus. No injection or drainage. ORAL MUCOSA MOIST TONGUE MIDLINE NECK: Supple, trachea midline. difficult to assess JVD secondary to body habitus TRACH IN PLACE CARDIOVASCULAR: Regular rate and rhythm without murmurs, gallops, or rubs. RESPIRATORY: distant Breath sounds equal bilaterally. No accessory muscle use. GASTROINTESTINAL: Abdomen soft, non-tender, nondistended. PEG tube site with erythema and edema. purulent tissue drainage. indurated area no areas of fluctuation. MUSCULOSKELETAL: No cyanosis, or edema. BACK: Nontender without obvious deformity. No CVA tenderness. - Urinary Catheter Management Straight Cath placed during this visit: no Results - Labs CBC & Chem 7: 09/14/18 06:02 09/14/18 06:02 Laboratory Results - last 24 hr 09/13/18 09/15/18 09/15/18 22:50 10:00 12:39 PT INR POC Glucose 194 H Urine Color Yellow Urine Clarity Hazy H Urine pH 5.0 Ur Specific [place] 1.019 Urine Protein 30 H Urine Glucose (UA) Negative Urine Ketones Trace H Urine Occult Blood Negative Urine Nitrate Positive H Urine Bilirubin Negative Urine Urobilinogen 2.0 H Ur Leukocyte Esterase Trace H Urine RBC 1 Urine WBC 2 Urine Bacteria Moderate H Urine Mucus Few H Micro UA Comment Cath-culture ind Urine Culture Comments Cath-cult indicated Stl C.difficile DNA Amp Negative St C. diff Tox Epid 027 Negative 09/15/18 09/15/18 09/16/18 17:18 22:39 08:12 PT 28.6 H D INR 2.8 POC Glucose 227 H 198 H Urine Color Urine Clarity Urine pH Ur Specific [place] Urine Protein Urine Glucose (UA) Urine Ketones Urine Occult Blood Urine Nitrate Urine Bilirubin Urine Urobilinogen Ur Leukocyte Esterase Urine RBC Urine WBC Urine Bacteria Urine Mucus Micro UA Comment Urine Culture Comments Stl C.difficile DNA Amp St C. diff Tox Epid 027 09/16/18 09:26 PT INR POC Glucose 173 H Urine Color Urine Clarity Urine pH Ur Specific [place] Urine Protein Urine Glucose (UA) Urine Ketones Urine Occult Blood Urine Nitrate Urine Bilirubin Urine Urobilinogen Ur Leukocyte Esterase Urine RBC Urine WBC Urine Bacteria Urine Mucus Micro UA Comment Urine Culture Comments Stl C.difficile DNA Amp St C. diff Tox Epid 027 Microbiology 09/13/18 22:50 Catheterized Urine Urine Culture - Preliminary gram negative rods Yeast - ID to follow 09/13/18 22:50 Wound - Abdominal Gram Stain - Final 09/13/18 22:50 Wound - Abdominal Wound Culture - Final Enterococcus faecium Grecia albicans 09/13/18 12:55 Blood - Peripheral Aerobic Blood Culture - Final Enterococcus faecalis Enterococcus faecium 09/13/18 12:55 Blood - Peripheral Anaerobic Blood Culture - Preliminary No growth in 2 days 09/14/18 19:14 Blood - Peripheral Aerobic Blood Culture - Preliminary No growth in 1 day 09/14/18 19:14 Blood - Peripheral Anaerobic Blood Culture - Preliminary No growth in 1 day 09/14/18 19:09 Blood - Peripheral Aerobic Blood Culture - Preliminary No growth in 1 day 09/14/18 19:09 Blood - Peripheral Anaerobic Blood Culture - Preliminary No growth in 1 day 09/13/18 12:50 Blood - Peripheral Aerobic Blood Culture - Preliminary No growth in 2 days 09/13/18 12:50 Blood - Peripheral Anaerobic Blood Culture - Preliminary No growth in 2 days - Imaging ITS Impressions Chest X-Ray 09/13/18 12:51 CONCLUSION: Resolution of previously seen pulmonary edema. Abdomen/Pelvis CT 09/13/18 13:09 CONCLUSION: 1. The gastrostomy tube is pulled back into the superficial subcutaneous tissues, almost out. 2. Debris and induration along the tract through the subcutaneous tissues to the peritoneal cavity without evidence of intraperitoneal abscess, air or fluid 3. Pelvic findings of undetermined significance which appear grossly unchanged. Videofluoroscopic Swallow 09/14/18 00:00 CONCLUSION: No evidence of penetration or aspiration. See full report by the speech pathologist. Assessment and Plan - Assessment (1) Tachycardia Code(s): R00.0 - Tachycardia, unspecified Status: Acute (2) Acute UTI (urinary tract infection) Code(s): N39.0 - Urinary tract infection, site not specified Status: Acute (3) Respiratory failure Code(s): J96.90 - Respiratory failure, unspecified, unspecified whether with hypoxia or hypercapnia Status: Acute (4) Complication of feeding tube Code(s): K94.23 - Gastrostomy malfunction Status: Acute - Plan This is a pleasant 68 y/o Female with Depression, DM II, Hypertension, Hyperlipidemia, Morbid Obesity recently Hospitalized May 2018, UTI/Sepsis, she was discharged on tracheostomy and PEG tube. She returned to the emergency room on 09/13/18 with erythema and swelling around her PEG site and a partially displaced PEG tube. Patient seen today around 1 PM. Patient has tracheostomy. Partially displaced PEG tube. PEG tube displaced, status post PEG tube removal in ED on 09/13, GI specialist following, NPO status post Swallow test and cleared for clear liquid diet. eating well. - DIET HAS BEEN ADVANCED PER SPEECH A. fib/tachycardia -continue Warfarin, Pharmacy following, Heart rate controlled with digoxin. INR 3.9 on hold Warfarin today Sepsis on admission/probable Peritoneal infection/PEG site infection, Daptomycin and ZOSYN and Diflucan -CT abdomen pelvis did not indicate abscess Sepsis on admission with leukocytosis, tachycardia, tachypnea, temperature of 100.9. PEG tube site cellulitis. Patient with positive enterococcus in blood. Wound cultures from PEG site pending. Have consulted ID who added anaerobic and antifungal coverage. Follow up repeat cultures. Respiratory failure with trach (placed 06/15/18) -Continue bronchodilator, Mucolytic and incentive spirometry. Possible UTI -Patient previously admitted for sepsis/UTI -UA with culture pending Hypertension probably secondary to IV fluids given. Loose stools asked for C Diff test. DVT prophylaxis: On warfarin, therapeutic INR 2.8 DIARRHEA START LACTINEX LOMOTIL -PRN decreased IV fluids to 84 ml per hour and remove if continue eating well. Code Status: FULL CODE Discussed Condition With: RN AND PT Discharge Planning: ONCE CLEARED BY ID FOR DISCHARGE
[2018-09-16 11:03] LABS: Anion Gap 8 meq/L (5-15); Aspartate Aminotransferase 8 U/L (15-37); Blood Urea Nitrogen 10 mg/dL (7-18); Carbon Dioxide 26.3 meq/L (21.0-32.0); Chloride 109 meq/L (98-107); Glomerular Filtration Rate 89 mL/min (>89); Glucose,Random 165 mg/dL (74-106); Magnesium 1.8 mg/dL (1.5-2.5); Potassium 3.5 meq/L (3.5-5.1); Sodium 143 meq/L (136-145)
[2018-09-16 11:12] LABS: Alanine Aminotransferase 21 U/L (10-53); Alkaline Phosphatase 60 U/L (45-117); Free T4 (Free Thyroxine) 0.96 ng/dL (0.76-1.46); Phosphorus 2.1 mg/dL (2.5-4.9); Thyroid Stimulating Hormone 0.685 uIU/mL (0.358-3.740); Total Protein 5.5 g/dL (6.4-8.2)
[2018-09-16] MEDS: Lactobacillus Acidophilus/L. Spores Tablet PO SCH ×2 (13:22→17:17)
[2018-09-16] MEDS: LORazepam 1 MG Tablet PO PRN ×2 (13:23→19:47)
[2018-09-16] MEDS: Diphenoxylate/Atropine 2.5/0.025 MG Tablet PO PRN (13:23)
--- NOTE | 2018-09-16 14:34 | P.PNID ---
Subjective Remarks: Patient is a 68-year-old female, brought into the hospital for evaluation of her PEG tube. Patient was hospitalized here back in May and at that time she was treated for sepsis. She had a UTI, and also had what looks like an infection on 1 of her toes on the right foot. She ended up on the respirator, and has required continued ventilatory support, requiring tracheostomy. She also had a PEG tube placed at that time. She was discharged to [facility] towards the end of May, and apparently she was discharged around the second week in August and has been at home. Patient gets tube feedings 24 hours a day, and she still is able to eat some. She has a Passy- David valve on her trach. She stays mostly in bed, and sometimes dangles at the side of the bed, and she could stand up but does not really do any ambulation. Recently apparently she has been having problem with leaking around the PEG tube. She was also noted to have some swelling around the PEG tube site. She presented to the hospital, and she had a fever of 100.9. Her white count is elevated at 14,000. She had a CT of the abdomen and pelvis which did not show any evidence of intra-abdominal abscess, but it shows that the PEG is almost out with some debris along the PEG tube tract and some into the peritoneal cavity. The PEG was removed in the ED. She had a swallowing eval with no evidence of aspiration. Patient currently is on a T-piece. She denies any shortness of breath. Her abdominal pain is better. She is awake and alert. Her temperatures are better. BP is stable and she is not on any pressor support. 2 blood cultures were done in the ED and one blood culture is currently going growing enterococcus. Her chest x-ray is normal. Infectious disease consultation has been requested to evaluate the patient with positive blood culture. Notes reviewed D/W RN Temps better Passed swallowing eval Previous PEG site drainage better Tolerating diet No new (+) BC UC with GNR and yeast PEG site C/S Enterococcus, Grecia albicans Antibiotics: Zosyn Cubicin Diflucan Lines: PIV Past Medical History: MDRO (multiple drug resistant organisms) resistance Onset Date: ~09/13/18 Depression Diabetes Hypertension Hypertriglyceridemia Morbid obesity Tubal ligation PEG placement Tracheostomy Allergies/Adverse Reactions: Allergies No Known Allergies Allergy (Verified 05/30/18 22:08) Objective Vital Signs 09/15/18 16:00 09/15/18 20:00 09/15/18 20:10 Temperature 100.6 F H 98.4 F Pulse Rate 98 H 80 Respiratory Rate 24 18 Blood Pressure 117/60 121/70 Pulse Oximetry 95 97 98 09/16/18 00:00 09/16/18 04:00 09/16/18 07:41 Temperature 98.5 F 98.6 F Pulse Rate 72 72 Respiratory Rate 16 18 Blood Pressure 111/52 L 118/69 Pulse Oximetry 99 96 98 09/16/18 08:00 09/16/18 09:50 Temperature 99.1 F Pulse Rate 98 H Respiratory Rate 20 Blood Pressure 122/74 Pulse Oximetry 97 98 Intake & Output 09/15/18 09/16/18 09/16/18 18:59 06:59 18:59 Intake Total 1850 / 1850 1400 / 1400 50 / 50 Output Total 1000 / 1000 700 / 700 Balance 850 / 850 700 / 700 50 / 50 Weight 128.1 kg Intake: IV 1100 / 1100 1400 / 1400 50 / 50 NS Inj 1,000 ML @ 84 mls/hr IV. 1000 / 1000 1000 / 1000 CONT .[id number] BECKY Rx#:[id number] Cubicin Inj 720 MG In NS Inj 100 / 100 100 ML @ 200 mls/hr IV.SIG Q24H BECKY Rx#:[id number] Diflucan 400 mg Premix Bag 200 200 / 200 ML @ 100 mls/hr IV.SIG Q24H BECKY Rx#:[id number] Zosyn 3.375 GM Premix 50 ML @ 100 / 100 100 / 100 50 / 50 100 mls/hr IV.SIG Q6H BECKY Rx#: [id number] Oral 750 / 750 Output: Urine 1000 / 1000 700 / 700 Other: Date of Last Bowel Movement 09/15/18 09/16/18 # Bowel Movements 2 0 09/13/18 22:50 Catheterized Urine Urine Culture - Preliminary gram negative rods Yeast - ID to follow 09/14/18 19:14 Blood - Peripheral Aerobic Blood Culture - Preliminary No growth in 2 days 09/14/18 19:14 Blood - Peripheral Anaerobic Blood Culture - Preliminary No growth in 2 days 09/14/18 19:09 Blood - Peripheral Aerobic Blood Culture - Preliminary No growth in 2 days 09/14/18 19:09 Blood - Peripheral Anaerobic Blood Culture - Preliminary No growth in 2 days 09/13/18 12:50 Blood - Peripheral Aerobic Blood Culture - Preliminary No growth in 3 days 09/13/18 12:50 Blood - Peripheral Anaerobic Blood Culture - Preliminary No growth in 3 days 09/13/18 12:55 Blood - Peripheral Aerobic Blood Culture - Final Enterococcus faecalis Enterococcus faecium 09/13/18 12:55 Blood - Peripheral Anaerobic Blood Culture - Preliminary No growth in 3 days 09/13/18 22:50 Wound - Abdominal Gram Stain - Final 09/13/18 22:50 Wound - Abdominal Wound Culture - Final Enterococcus faecium Grecia albicans Lab - Hematology Results 09/16/18 10:01 WBC 7.8 RBC 3.39 L Hgb 10.2 L Hct 31.6 L MCV 93.3 MCH 30.1 MCHC 32.3 RDW 17.3 H Plt Count 228 MPV 7.1 Neut % (Auto) 76.3 H Lymph % (Auto) 13.9 [place] % (Auto) 7.5 Eos % (Auto) 1.8 Baso % (Auto) 0.5 Neut # (Auto) 6.0 Lymph # (Auto) 1.1 [place] # (Auto) 0.6 Eos # (Auto) 0.1 Baso # (Auto) 0.0 WBC Differential . Differential Comment Auto diff final Lab - Chemistry Results 09/15/18 09/15/18 09/15/18 07:54 09:15 12:39 Sodium Potassium Chloride Carbon Dioxide Anion Gap BUN Creatinine Estimated GFR POC Glucose 160 H 194 H Random Glucose Calcium Phosphorus Magnesium Total Bilirubin AST ALT Alkaline Phosphatase Total Creatine Kinase 15 L Total Protein Albumin TSH Free T4 09/15/18 09/15/18 09/16/18 17:18 22:39 09:26 Sodium Potassium Chloride Carbon Dioxide Anion Gap BUN Creatinine Estimated GFR POC Glucose 227 H 198 H 173 H Random Glucose Calcium Phosphorus Magnesium Total Bilirubin AST ALT Alkaline Phosphatase Total Creatine Kinase Total Protein Albumin TSH Free T4 09/16/18 09/16/18 10:01 12:59 Sodium 143 Potassium 3.5 Chloride 109 H Carbon Dioxide 26.3 Anion Gap 8 BUN 10 Creatinine 0.66 Estimated GFR 89 POC Glucose 160 H Random Glucose 165 H Calcium 8.0 L Phosphorus 2.1 L Magnesium 1.8 Total Bilirubin 0.2 AST 8 L ALT 21 Alkaline Phosphatase 60 Total Creatine Kinase Total Protein 5.5 L D Albumin 2.0 L TSH 0.685 Free T4 0.96 Imaging: ITS Impressions Chest X-Ray 09/13/18 12:51 CONCLUSION: Resolution of previously seen pulmonary edema. Abdomen/Pelvis CT 09/13/18 13:09 CONCLUSION: 1. The gastrostomy tube is pulled back into the superficial subcutaneous tissues, almost out. 2. Debris and induration along the tract through the subcutaneous tissues to the peritoneal cavity without evidence of intraperitoneal abscess, air or fluid 3. Pelvic findings of undetermined significance which appear grossly unchanged. Videofluoroscopic Swallow 09/14/18 00:00 CONCLUSION: No evidence of penetration or aspiration. See full report by the speech pathologist. Physical Exam: GENERAL: Patient is an obese, well-developed female, awake and alert, On T -piece, not in distress SKIN: Cool and dry. No generalized rash HEAD: Atraumatic. Normocephalic. No temporal wasting, or tenderness. EYES: [place] conjunctiva. No petechia or hemorrhage. Pupils equal, round and reactive to light. Extraocular movements full and intact. No scleral icterus. No injection or drainage. EARS, NOSE AND THROAT: Nose without bleeding or purulent nasal discharge. Mucous membranes pink and moist. No oral lesions noted. NECK: Tracheostomy site looks ok. Supple and not tender, no meningeal signs CARDIOVASCULAR: Tachycardic, irregular rate and rhythm. No murmurs, rubs or gallops heard RESPIRATORY: Coarse breath sounds sully, with scattered rhonchi ABDOMEN: Soft, obese, previous PEG site about 1.5 cm opening, with surrounding erythema that is improving, and induration is about the same. Drainage is much less. Less tender on palpation around previous PEG site. no crepitus. Bowel sounds present and normoactive. No guarding. No rebound. Has reducible UH EXTREMITIES: No clubbing, cyanosis, or edema. No calf tenderness. NO evidence of infection in any of her toes NEUROLOGICAL: Awake and alert. Cranial nerves grossly intact. Motor grossly within normal limits. PSYCHIATRIC: Normal affect, calm and cooperative. LINE: No evidence of infection Assessment and Plan - Plan Impression Bacteremia with Enterococcus, ?source due to abdominal wall cellulitis from PEG malposition Abdominal wall cellulitis UTI Respiratory failure, S/P trach, has passey-david valve Hx possible osteo of toe R foot - currently no obvious evidence of infection Recommendation Stop IV Cubicin, not VRE Continue Zosyn Continue Diflucan Follow C/S and adjust Abx Monitor progress Explained plan to the patient D/W RN
[2018-09-16 16:42] LABS: Hemoglobin A1c 6.7 % (4.3-6.0)
[2018-09-16] MEDS: DAPTOmycin Inj 720 MG in Sodium Chlor 0.9% Inj 100 ML IV.SIG SCH (19:46)
[2018-09-17] MEDS: Piperacil/Tazo 3.375 GM Premix 50 ML IV.SIG SCH ×4 (03:04→22:33)
[2018-09-17] MEDS: Sod Chloride 0.9% Inj 1,000 ML IV.CONT SCH ×2 (05:23→15:54)
[2018-09-17 07:19] LABS: INR 2.6 Ratio; Prothrombin Time 26.1 sec (9.8-11.6)
[2018-09-17 07:30] LABS: Anion Gap 8 meq/L (5-15); Aspartate Aminotransferase 10 U/L (15-37); Blood Urea Nitrogen 11 mg/dL (7-18); Calcium 7.5 mg/dL (8.5-10.1); Carbon Dioxide 25.5 meq/L (21.0-32.0); Chloride 110 meq/L (98-107); Glomerular Filtration Rate 78 mL/min (>89); Glucose,Random 129 mg/dL (74-106); Magnesium 1.6 mg/dL (1.5-2.5); Sodium 143 meq/L (136-145)
[2018-09-17 07:39] LABS: Alanine Aminotransferase 20 U/L (10-53); Alkaline Phosphatase 55 U/L (45-117); Free T4 (Free Thyroxine) 0.75 ng/dL (0.76-1.46); Thyroid Stimulating Hormone 0.473 uIU/mL (0.358-3.740); Total Protein 5.6 g/dL (6.4-8.2)
[2018-09-17 07:45] LABS: Baso % (Auto) 0.7 % (0.0-2.0); Eos # (Auto) 0.1 th/mm3 (0.0-0.4); Eos % (Auto) 2.1 % (0.0-4.0); Hematocrit 31.9 % (35.0-46.0); Hemoglobin 10.3 gm/dL (11.6-15.3); Lymph # (Auto) 1.3 th/mm3 (1.0-4.8); Lymph % (Auto) 18.5 % (9.0-44.0); Mean Corpuscular HGB Conc 32.4 % (32.0-36.0); Mean Corpuscular Hemoglobin 30.2 pg (27.0-34.0); Mean Corpuscular Volume 93.1 fL (80.0-100.0); Mean Platelet Volume 7.2 fL (7.0-11.0); Mono # (Auto) 0.5 th/mm3 (0.0-0.9); Neut # (Auto) 4.9 th/mm3 (1.8-7.7); Neut % (Auto) 70.7 % (16.0-70.0); Platelet Count 260 th/mm3 (150-450); Red Blood Count 3.42 mil/mm3 (4.00-5.30); Red Cell Distribution Width 16.8 % (11.6-17.2); White Blood Count 6.9 th/mm3 (4.0-11.0)
--- NOTE | 2018-09-17 08:19 | P.PN ---
Subjective Interval history: This is a pleasant 68 y/o Female with Depression, DM II, Hypertension, Hyperlipidemia, Morbid Obesity recently Hospitalized May 2018, UTI/Sepsis, she was discharged on tracheostomy and PEG tube. She returned to the emergency room on 09/13/18 with erythema and swelling around her PEG site and a partially displaced PEG tube. 09-14 Patient seen today around 1 PM. Patient has tracheostomy, is mouthing words very Effectively. Patient indicates that she is without pain.- 09-15: ID specialist following, patient has Bacteremia with Enterococcus, source probable to abdominal Wall Cellulitis from PEG tube malposition, on Daptomycin, stopped Vancomycin, Zosyn and Diflucan. Discussed with nurse, she obtained abundant purulent tissue after performing expression of the abdominal wall area, with indurated area and erythematous but not found areas to perform any I and D and she is draining on her own, to continue antibiotics and, follow also she was taking Ativan at home and wants to continue in house, will continue low dose. 09-16 passed swallow evaluation PEG NOT REPLACED ON MULTIPLE ANTIBIOTICS PER ID AM LABS PT AND OT PASSED SWALLOW EVAL SEAN RN AND PT HAS DIARRHEA- LACTINEX PRN LOMOTIL 09/17: patient stable in her bedroom, stable discussed with nurse Miss Gerber no nausea, vomit or diarrhea, continue present care, Respiratory Therapy will start Cap trial of her Tracheostomy. Physical Exam Vital signs: Vital Signs 09/16/18 09:50 09/16/18 12:00 09/16/18 16:00 Temperature 99.0 F 99.0 F Pulse Rate 80 76 Respiratory Rate 18 20 Blood Pressure 122/80 118/65 Pulse Oximetry 98 96 09/16/18 20:00 09/16/18 22:14 09/17/18 00:00 Temperature 99.5 F Pulse Rate 102 H Respiratory Rate 20 20 Blood Pressure 106/67 Pulse Oximetry 98 99 09/17/18 00:30 09/17/18 04:00 Temperature 97.5 F L Pulse Rate 70 Respiratory Rate 18 Blood Pressure 139/88 Pulse Oximetry 99 99 Intake & Output 09/16/18 09/17/18 09/17/18 18:59 06:59 18:59 Intake Total 2100 / 2100 1400 / 1400 Output Total 1500 / 1500 600 / 600 Balance 600 / 600 800 / 800 Weight 128.1 kg Intake: IV 1100 / 1100 1400 / 1400 NS Inj 1,000 ML @ 84 mls/hr IV. 1000 / 1000 1000 / 1000 CONT .[id number] BECKY Rx#:[id number] Cubicin Inj 720 MG In NS Inj 100 / 100 100 ML @ 200 mls/hr IV.SIG Q24H BECKY Rx#:[id number] Diflucan 400 mg Premix Bag 200 200 / 200 ML @ 100 mls/hr IV.SIG Q24H BECKY Rx#:[id number] Zosyn 3.375 GM Premix 50 ML @ 100 / 100 100 / 100 100 mls/hr IV.SIG Q6H BECKY Rx#: [id number] Oral 1000 / 1000 Output: Urine 1500 / 1500 600 / 600 Other: Date of Last Bowel Movement 09/16/18 # Bowel Movements 4 Narrative: GENERAL: Morbid obesity, no acute distress. SKIN: Warm and dry. EXCEPT AREA AROUND WHERE PEG TUBE WAS- ERYTHEMA AND EDEMA AND SOME DRAINAGE HEAD: Normocephalic. ATRAUMATIC EYES: No scleral icterus. No injection or drainage. ORAL MUCOSA MOIST TONGUE MIDLINE NECK: Supple, trachea midline. difficult to assess JVD secondary to body habitus TRACH IN PLACE CARDIOVASCULAR: Regular rate and rhythm without murmurs, gallops, or rubs. RESPIRATORY: distant Breath sounds equal bilaterally. No accessory muscle use. GASTROINTESTINAL: Abdomen soft, non-tender, nondistended. PEG tube site with erythema and edema. purulent tissue drainage. indurated area no areas of fluctuation. MUSCULOSKELETAL: No cyanosis, or edema. BACK: Nontender without obvious deformity. No CVA tenderness. - Urinary Catheter Management Straight Cath placed during this visit: no Results - Labs CBC & Chem 7: 09/17/18 06:17 09/17/18 06:11 Laboratory Results - last 24 hr 09/16/18 09/16/18 09/16/18 08:12 09:26 10:01 WBC 7.8 RBC 3.39 L Hgb 10.2 L Hct 31.6 L MCV 93.3 MCH 30.1 MCHC 32.3 RDW 17.3 H Plt Count 228 MPV 7.1 Neut % (Auto) 76.3 H Lymph % (Auto) 13.9 [place] % (Auto) 7.5 Eos % (Auto) 1.8 Baso % (Auto) 0.5 Neut # (Auto) 6.0 Lymph # (Auto) 1.1 [place] # (Auto) 0.6 Eos # (Auto) 0.1 Baso # (Auto) 0.0 WBC Differential . Differential Comment Auto diff final PT 28.6 H D INR 2.8 Sodium Potassium Chloride Carbon Dioxide Anion Gap BUN Creatinine Estimated GFR POC Glucose 173 H Random Glucose Hemoglobin A1c Calcium Phosphorus Magnesium Total Bilirubin AST ALT Alkaline Phosphatase Total Protein Albumin TSH Free T4 09/16/18 09/16/18 09/16/18 10:01 10:01 12:59 WBC RBC Hgb Hct MCV MCH MCHC RDW Plt Count MPV Neut % (Auto) Lymph % (Auto) [place] % (Auto) Eos % (Auto) Baso % (Auto) Neut # (Auto) Lymph # (Auto) [place] # (Auto) Eos # (Auto) Baso # (Auto) WBC Differential Differential Comment PT INR Sodium 143 Potassium 3.5 Chloride 109 H Carbon Dioxide 26.3 Anion Gap 8 BUN 10 Creatinine 0.66 Estimated GFR 89 POC Glucose 160 H Random Glucose 165 H Hemoglobin A1c 6.7 H Calcium 8.0 L Phosphorus 2.1 L Magnesium 1.8 Total Bilirubin 0.2 AST 8 L ALT 21 Alkaline Phosphatase 60 Total Protein 5.5 L D Albumin 2.0 L TSH 0.685 Free T4 0.96 09/16/18 09/16/18 09/17/18 17:14 21:06 06:11 WBC RBC Hgb Hct MCV MCH MCHC RDW Plt Count MPV Neut % (Auto) Lymph % (Auto) [place] % (Auto) Eos % (Auto) Baso % (Auto) Neut # (Auto) Lymph # (Auto) [place] # (Auto) Eos # (Auto) Baso # (Auto) WBC Differential Differential Comment PT INR Sodium 143 Potassium 4.0 Chloride 110 H Carbon Dioxide 25.5 Anion Gap 8 BUN 11 Creatinine 0.74 Estimated GFR 78 L POC Glucose 269 H 261 H Random Glucose 129 H Hemoglobin A1c Calcium 7.5 L Phosphorus 3.0 Magnesium 1.6 Total Bilirubin 0.2 AST 10 L ALT 20 Alkaline Phosphatase 55 Total Protein 5.6 L Albumin 2.0 L TSH 0.473 Free T4 0.75 L 09/17/18 09/17/18 06:17 06:17 WBC 6.9 RBC 3.42 L Hgb 10.3 L Hct 31.9 L MCV 93.1 MCH 30.2 MCHC 32.4 RDW 16.8 Plt Count 260 MPV 7.2 Neut % (Auto) 70.7 H Lymph % (Auto) 18.5 [place] % (Auto) 8.0 Eos % (Auto) 2.1 Baso % (Auto) 0.7 Neut # (Auto) 4.9 Lymph # (Auto) 1.3 [place] # (Auto) 0.5 Eos # (Auto) 0.1 Baso # (Auto) 0.0 WBC Differential . Differential Comment Auto diff final PT 26.1 H INR 2.6 Sodium Potassium Chloride Carbon Dioxide Anion Gap BUN Creatinine Estimated GFR POC Glucose Random Glucose Hemoglobin A1c Calcium Phosphorus Magnesium Total Bilirubin AST ALT Alkaline Phosphatase Total Protein Albumin TSH Free T4 Microbiology 09/13/18 22:50 Catheterized Urine Urine Culture - Preliminary gram negative rods Yeast - ID to follow 09/14/18 19:14 Blood - Peripheral Aerobic Blood Culture - Preliminary No growth in 2 days 09/14/18 19:14 Blood - Peripheral Anaerobic Blood Culture - Preliminary No growth in 2 days 09/14/18 19:09 Blood - Peripheral Aerobic Blood Culture - Preliminary No growth in 2 days 09/14/18 19:09 Blood - Peripheral Anaerobic Blood Culture - Preliminary No growth in 2 days 09/13/18 12:50 Blood - Peripheral Aerobic Blood Culture - Preliminary No growth in 3 days 09/13/18 12:50 Blood - Peripheral Anaerobic Blood Culture - Preliminary No growth in 3 days 09/13/18 12:55 Blood - Peripheral Aerobic Blood Culture - Final Enterococcus faecalis Enterococcus faecium 09/13/18 12:55 Blood - Peripheral Anaerobic Blood Culture - Preliminary No growth in 3 days 09/13/18 22:50 Wound - Abdominal Gram Stain - Final 09/13/18 22:50 Wound - Abdominal Wound Culture - Final Enterococcus faecium Grecia albicans - Imaging Chest X-Ray 09/13/18 12:51 CONCLUSION: Resolution of previously seen pulmonary edema. Abdomen/Pelvis CT 09/13/18 13:09 CONCLUSION: 1. The gastrostomy tube is pulled back into the superficial subcutaneous tissues, almost out. 2. Debris and induration along the tract through the subcutaneous tissues to the peritoneal cavity without evidence of intraperitoneal abscess, air or fluid 3. Pelvic findings of undetermined significance which appear grossly unchanged. Videofluoroscopic Swallow 09/14/18 00:00 CONCLUSION: No evidence of penetration or aspiration. See full report by the speech pathologist. Assessment and Plan - Assessment (1) Tachycardia Code(s): R00.0 - Tachycardia, unspecified Status: Acute (2) Acute UTI (urinary tract infection) Code(s): N39.0 - Urinary tract infection, site not specified Status: Acute (3) Respiratory failure Code(s): J96.90 - Respiratory failure, unspecified, unspecified whether with hypoxia or hypercapnia Status: Acute (4) Complication of feeding tube Code(s): K94.23 - Gastrostomy malfunction Status: Acute - Plan This is a pleasant 68 y/o Female with Depression, DM II, Hypertension, Hyperlipidemia, Morbid Obesity recently Hospitalized May 2018, UTI/Sepsis, she was discharged on tracheostomy and PEG tube. She returned to the emergency room on 09/13/18 with erythema and swelling around her PEG site and a partially displaced PEG tube. Patient seen today around 1 PM. Patient has tracheostomy. Partially displaced PEG tube. PEG tube displaced, status post PEG tube removal in ED on 09/13, GI specialist following, NPO status post Swallow test and cleared for clear liquid diet. eating well. - DIET HAS BEEN ADVANCED PER SPEECH A. fib/tachycardia -continue Warfarin, Pharmacy following, Heart rate controlled with digoxin. INR 3.9 on hold Warfarin today Sepsis on admission/probable Peritoneal infection/PEG site infection, Daptomycin and ZOSYN and Diflucan -CT abdomen pelvis did not indicate abscess Sepsis on admission with leukocytosis, tachycardia, tachypnea, temperature of 100.9. PEG tube site cellulitis. Patient with Bacteremia with Enterococcus. Wound cultures from PEG site pending. ID specialist following, Stopped Cubicin, Not VRE, continue Zosyn, Continue Diflucan, following cultures and sensitivity, Have consulted ID who added anaerobic and antifungal coverage. Follow up repeat cultures. Respiratory failure with trach (placed 06/15/18) -Continue bronchodilator, Mucolytic and incentive spirometry. Possible UTI -Patient previously admitted for sepsis/UTI -UA with culture pending Hypertension probably secondary to IV fluids given. DVT prophylaxis: On warfarin, therapeutic INR 2.8 DIARRHEA START LACTINEX, C diff negative. LOMOTIL -PRN decreased IV fluids to 84 ml per hour and remove if continue eating well. Code Status: Full code. Discussed Condition With: Patient and Nurse Miss Gerber. Discharge Planning: ONCE CLEARED BY ID FOR DISCHARGE
[2018-09-17] MEDS: Digoxin 125 MCG Tablet PO SCH (09:48)
[2018-09-17] MEDS: predniSONE 20 MG Tablet PO SCH (09:48)
[2018-09-17] MEDS: LORazepam 1 MG Tablet PO PRN ×3 (09:48→22:45)
[2018-09-17] MEDS: Lactobacillus Acidophilus/L. Spores Tablet PO SCH ×3 (09:49→18:34)
[2018-09-17] MEDS: Morphine Sulfate Oral Liq 10 MG/0.5 ML Syringe SL PRN (09:49)
[2018-09-17] MEDS: Insulin NovoLOG Aspart Correctional Sugar Inj SQ SCH ×4 (10:00→22:36)
[2018-09-17 14:32] LABS: Hemoglobin A1c 6.6 % (4.3-6.0)
[2018-09-17] MEDS: DAPTOmycin Inj 720 MG in Sodium Chlor 0.9% Inj 100 ML IV.SIG SCH (22:30)
[2018-09-18] MEDS: Piperacil/Tazo 3.375 GM Premix 50 ML IV.SIG SCH ×4 (03:39→21:57)
[2018-09-18 06:22] LABS: INR 3.6 Ratio; Prothrombin Time 36.6 sec (9.8-11.6)
--- NOTE | 2018-09-18 08:35 | P.PN ---
Subjective Interval history: This is a pleasant 68 y/o Female with Depression, DM II, Hypertension, Hyperlipidemia, Morbid Obesity recently Hospitalized May 2018, UTI/Sepsis, she was discharged on tracheostomy and PEG tube. She returned to the emergency room on 09/13/18 with erythema and swelling around her PEG site and a partially displaced PEG tube. 09-14 Patient seen today around 1 PM. Patient has tracheostomy, is mouthing words very Effectively. Patient indicates that she is without pain.- 09-15: ID specialist following, patient has Bacteremia with Enterococcus, source probable to abdominal Wall Cellulitis from PEG tube malposition, on Daptomycin, stopped Vancomycin, Zosyn and Diflucan. Discussed with nurse, she obtained abundant purulent tissue after performing expression of the abdominal wall area, with indurated area and erythematous but not found areas to perform any I and D and she is draining on her own, to continue antibiotics and, follow also she was taking Ativan at home and wants to continue in house, will continue low dose. 09-16 passed swallow evaluation, PEG NOT REPLACED, PT AND OT, DW RN AND PT, HAS DIARRHEA- LACTINEX PRN LOMOTIL 09/17: patient stable in her bedroom, stable discussed with nurse Miss Gerber no nausea. present care, Respiratory Therapy will start Cap trial of her Tracheostomy. 09/18: Discussed with nurse Miss Gerber, no nausea, vomit or diarrhea, Improving her drainage on abdominal area and also Tracheostomy capped. Physical Exam Vital signs: Vital Signs 09/17/18 10:35 09/17/18 11:21 09/17/18 12:00 Temperature 98.2 F Pulse Rate 92 H Respiratory Rate 14 14 Blood Pressure 138/83 Pulse Oximetry 98 91 L 09/17/18 16:00 09/17/18 20:00 09/17/18 22:27 Temperature 98.4 F 98.1 F Pulse Rate 88 95 H Respiratory Rate 12 14 Blood Pressure 128/82 152/88 H Pulse Oximetry 99 99 99 09/18/18 00:00 09/18/18 04:00 Temperature 97.5 F L 98.0 F Pulse Rate 75 73 Respiratory Rate 14 16 Blood Pressure 131/77 115/77 Pulse Oximetry 99 100 Intake & Output 09/17/18 09/18/18 09/18/18 18:59 06:59 18:59 Intake Total 3108 / 3108 1930 / 1930 Output Total 1200 / 1200 300 / 300 Balance 1908 / 1908 1630 / 1630 Weight 128.1 kg Intake: IV 1100 / 1100 400 / 400 NS Inj 1,000 ML @ 84 mls/hr IV. 1000 / 1000 CONT .[id number] BECKY Rx#:[id number] Cubicin Inj 720 MG In NS Inj 100 / 100 100 ML @ 200 mls/hr IV.SIG Q24H BECKY Rx#:[id number] Diflucan 400 mg Premix Bag 200 200 / 200 ML @ 100 mls/hr IV.SIG Q24H BECKY Rx#:[id number] Zosyn 3.375 GM Premix 50 ML @ 100 / 100 100 / 100 100 mls/hr IV.SIG Q6H BECKY Rx#: [id number] Oral 800 / 800 240 / 240 Other 1208 / 1208 1290 / 1290 Output: Urine 1200 / 1200 300 / 300 Other: Other Intake Source Saline Solution Date of Last Bowel Movement 09/17/18 # Bowel Movements 1 0 Narrative: GENERAL: Morbid obesity, no acute distress. SKIN: Warm and dry. EXCEPT AREA AROUND WHERE PEG TUBE WAS- ERYTHEMA AND EDEMA AND SOME DRAINAGE HEAD: Normocephalic. ATRAUMATIC EYES: No scleral icterus. No injection or drainage. ORAL MUCOSA MOIST TONGUE MIDLINE NECK: Supple, trachea midline. difficult to assess JVD secondary to body habitus TRACH IN PLACE, Capped. CARDIOVASCULAR: Regular rate and rhythm without murmurs, gallops, or rubs. RESPIRATORY: distant Breath sounds equal bilaterally. No accessory muscle use. GASTROINTESTINAL: Abdomen soft, non-tender, nondistended. PEG tube site improving drainage and erythema and edema. MUSCULOSKELETAL: No cyanosis, or edema. BACK: Nontender without obvious deformity. No CVA tenderness. - Urinary Catheter Management Straight Cath placed during this visit: no Results - Labs CBC & Chem 7: 09/17/18 06:17 09/17/18 06:11 Laboratory Results - last 24 hr 09/17/18 09/17/18 09/17/18 06:17 09:12 12:26 PT INR POC Glucose 138 H 231 H Hemoglobin A1c 6.6 H 09/17/18 09/17/18 09/18/18 18:23 22:36 05:53 PT 36.6 H D INR 3.6 POC Glucose 235 H 188 H Hemoglobin A1c Microbiology 09/14/18 19:14 Blood - Peripheral Aerobic Blood Culture - Preliminary No growth in 3 days 09/14/18 19:14 Blood - Peripheral Anaerobic Blood Culture - Preliminary No growth in 3 days 09/14/18 19:09 Blood - Peripheral Aerobic Blood Culture - Preliminary No growth in 3 days 09/14/18 19:09 Blood - Peripheral Anaerobic Blood Culture - Preliminary No growth in 3 days 09/13/18 12:50 Blood - Peripheral Aerobic Blood Culture - Preliminary gram positive cocci 09/13/18 12:50 Blood - Peripheral Anaerobic Blood Culture - Preliminary No growth in 4 days 09/13/18 12:55 Blood - Peripheral Aerobic Blood Culture - Final Enterococcus faecalis Enterococcus faecium 09/13/18 12:55 Blood - Peripheral Anaerobic Blood Culture - Preliminary No growth in 4 days 09/13/18 22:50 Catheterized Urine Urine Culture - Final Klebsiella pneumoniae ESBL pos Grecia glabrata - Imaging Chest X-Ray 09/13/18 12:51 CONCLUSION: Resolution of previously seen pulmonary edema. Abdomen/Pelvis CT 09/13/18 13:09 CONCLUSION: 1. The gastrostomy tube is pulled back into the superficial subcutaneous tissues, almost out. 2. Debris and induration along the tract through the subcutaneous tissues to the peritoneal cavity without evidence of intraperitoneal abscess, air or fluid 3. Pelvic findings of undetermined significance which appear grossly unchanged. Videofluoroscopic Swallow 09/14/18 00:00 CONCLUSION: No evidence of penetration or aspiration. See full report by the speech pathologist. - Procedures PEG tube removed. Assessment and Plan - Assessment (1) Tachycardia Code(s): R00.0 - Tachycardia, unspecified Status: Acute (2) Acute UTI (urinary tract infection) Code(s): N39.0 - Urinary tract infection, site not specified Status: Acute (3) Respiratory failure Code(s): J96.90 - Respiratory failure, unspecified, unspecified whether with hypoxia or hypercapnia Status: Acute (4) Complication of feeding tube Code(s): K94.23 - Gastrostomy malfunction Status: Acute - Plan This is a pleasant 68 y/o Female with Depression, DM II, Hypertension, Hyperlipidemia, Morbid Obesity recently Hospitalized May 2018, UTI/Sepsis, she was discharged on tracheostomy and PEG tube. She returned to the emergency room on 09/13/18 with erythema and swelling around her PEG site and a partially displaced PEG tube. PEG tube displaced, status post PEG tube removal in ED on 09/13, GI specialist following, NPO status post Swallow test and cleared for clear liquid diet. eating well. - DIET HAS BEEN ADVANCED PER SPEECH A. fib/tachycardia -continue Warfarin, Pharmacy following, Heart rate controlled with digoxin. INR 3.9 on hold Warfarin today Sepsis on admission/probable Peritoneal infection/PEG site infection, Enterococcus Faecium and Faecalis. Grecia albicans. Daptomycin and ZOSYN and Diflucan -CT abdomen pelvis did not indicate abscess Sepsis on admission with leukocytosis, tachycardia, tachypnea, temperature of 100.9. PEG tube site cellulitis. Patient with Bacteremia with Enterococcus. Wound cultures from PEG site pending. ID specialist following, Stopped Cubicin, Not VRE, continue Zosyn, Continue Diflucan, following cultures and sensitivity, Have consulted ID who added anaerobic and antifungal coverage. Follow up repeat cultures. Improving condition Respiratory failure with trach (placed 06/15/18) -Continue bronchodilator, Mucolytic and incentive spirometry. capped by Respiratory therapy. Possible UTI -Patient previously admitted for sepsis/UTI -UA with culture Klebsiella Pneumonia and Grecia albicans. Hypertension probably secondary to IV fluids given. DVT prophylaxis: On warfarin, therapeutic INR 2.8 DIARRHEA START LACTINEX, C diff negative. LOMOTIL -PRN decreased IV fluids to 84 ml per hour and remove if continue eating well. Code Status: Full code. Discussed Condition With: Patient and Nurse Miss Benjamin Discharge Planning: ONCE CLEARED BY ID FOR DISCHARGE
[2018-09-18] MEDS: Sod Chloride 0.9% Inj 1,000 ML IV.CONT SCH ×2 (09:44→16:29)
[2018-09-18] MEDS: Lactobacillus Acidophilus/L. Spores Tablet PO SCH ×3 (09:44→17:25)
[2018-09-18] MEDS: predniSONE 20 MG Tablet PO SCH (09:44)
[2018-09-18] MEDS: Digoxin 125 MCG Tablet PO SCH (09:44)
[2018-09-18] MEDS: Diphenoxylate/Atropine 2.5/0.025 MG Tablet PO PRN (09:53)
[2018-09-18] MEDS: Insulin NovoLOG Aspart Correctional Sugar Inj SQ SCH ×4 (10:39→22:04)
[2018-09-18] MEDS: LORazepam 1 MG Tablet PO PRN (17:25)
[2018-09-18] MEDS: Acetaminophen 325 MG Tablet PO PRN (17:25)
[2018-09-18] MEDS: DAPTOmycin Inj 720 MG in Sodium Chlor 0.9% Inj 100 ML IV.SIG SCH (21:53)
[2018-09-19] MEDS: Piperacil/Tazo 3.375 GM Premix 50 ML IV.SIG SCH ×2 (02:43→09:30)
[2018-09-19] MEDS: LORazepam 1 MG Tablet PO PRN ×2 (02:52→20:51)
[2018-09-19] MEDS: Insulin NovoLOG Aspart Correctional Sugar Inj SQ SCH ×4 (08:00→21:18)
[2018-09-19] MEDS: predniSONE 20 MG Tablet PO SCH (09:00)
[2018-09-19] MEDS: Lactobacillus Acidophilus/L. Spores Tablet PO SCH ×3 (09:00→17:43)
[2018-09-19] MEDS: Digoxin 125 MCG Tablet PO SCH (09:00)
[2018-09-19] MEDS: Sod Chloride 0.9% Inj 1,000 ML IV.CONT SCH ×2 (09:49→17:15)
--- NOTE | 2018-09-19 10:20 | P.PN ---
Subjective Interval history: This is a pleasant 68 y/o Female with Depression, DM II, Hypertension, Hyperlipidemia, Morbid Obesity recently Hospitalized May 2018, UTI/Sepsis, she was discharged on tracheostomy and PEG tube. She returned to the emergency room on 09/13/18 with erythema and swelling around her PEG site and a partially displaced PEG tube. 09-14 Patient seen today around 1 PM. Patient has tracheostomy, is mouthing words very Effectively. Patient indicates that she is without pain.- 09-15: ID specialist following, patient has Bacteremia with Enterococcus, source probable to abdominal Wall Cellulitis from PEG tube malposition, on Daptomycin, stopped Vancomycin, Zosyn and Diflucan. Discussed with nurse, she obtained abundant purulent tissue after performing expression of the abdominal wall area, with indurated area and erythematous but not found areas to perform any I and D and she is draining on her own, to continue antibiotics and, follow also she was taking Ativan at home and wants to continue in house, will continue low dose. 09-16 passed swallow evaluation, PEG NOT REPLACED, PT AND OT, DW RN AND PT, HAS DIARRHEA- LACTINEX PRN LOMOTIL 09/17: patient stable in her bedroom, stable discussed with nurse Miss Gerber no nausea. present care, Respiratory Therapy will start Cap trial of her Tracheostomy. 09/18: Discussed with nurse Miss Gerber, no nausea, vomit or diarrhea, Improving her drainage on abdominal area and also Tracheostomy capped. 09/19: The patient is at the margin of the bed she was suctioned by the nurse. Says she feels better. Will ask pulmonology on consult to evaluate trach and manage the trach. Patient still with drainage from the PEG tube. However she denies any abdominal pain, no fever or chills. She is not coughing much. Physical Exam Vital signs: Vital Signs 09/18/18 11:30 09/18/18 12:47 09/18/18 16:00 Temperature 98.3 F 98.9 F Pulse Rate 123 H 56 L Respiratory Rate 14 14 Blood Pressure 149/72 H 124/84 Pulse Oximetry 97 97 89 L 09/18/18 17:25 09/18/18 20:00 09/19/18 00:00 Temperature 96.7 F L 98.4 F Pulse Rate 56 L 114 H 79 Respiratory Rate 16 16 18 Blood Pressure 128/68 140/67 Pulse Oximetry 97 97 100 09/19/18 04:00 Temperature 98.2 F Pulse Rate 82 Respiratory Rate 16 Blood Pressure 132/68 Pulse Oximetry 99 Intake & Output 09/18/18 09/19/18 09/19/18 18:59 06:59 18:59 Intake Total 2650 / 2650 690 / 690 1000 / 1000 Output Total 900 / 900 700 / 700 Balance 1750 / 1750 -10 / -10 1000 / 1000 Weight 126 kg Intake: IV 1050 / 1050 450 / 450 1000 / 1000 NS Inj 1,000 ML @ 84 mls/hr IV. 1000 / 1000 1000 / 1000 CONT .[id number] BECKY Rx#:[id number] Cubicin Inj 720 MG In NS Inj 100 / 100 100 ML @ 200 mls/hr IV.SIG Q24H BECKY Rx#:[id number] Diflucan 400 mg Premix Bag 200 200 / 200 ML @ 100 mls/hr IV.SIG Q24H BECKY Rx#:[id number] Zosyn 3.375 GM Premix 50 ML @ 50 / 50 150 / 150 100 mls/hr IV.SIG Q6H BECKY Rx#: [id number] Oral 300 / 300 240 / 240 Other 1300 / 1300 Output: Urine 900 / 900 700 / 700 Other: Other Intake Source Saline Solution Date of Last Bowel Movement 09/18/18 09/18/18 # Bowel Movements 2 0 Narrative: GENERAL: Morbid obesity, no acute distress. SKIN: Focal skin exam wand edema around PEG tube site. NECK: Trach in place capped. CARDIOVASCULAR: Regular rate and rhythm without murmurs, gallops, or rubs. RESPIRATORY: Distant breath sounds. No accessory muscle use. GASTROINTESTINAL: Abdomen soft, non-tender, nondistended. PEG tube site improving erythema and edema. Still with discharge. MUSCULOSKELETAL: No cyanosis, or edema. BACK: Nontender without obvious deformity. No CVA tenderness. - Urinary Catheter Management Straight Cath placed during this visit: no Results - Labs CBC & Chem 7: 09/17/18 06:17 09/17/18 06:11 Laboratory Results - last 24 hr 09/18/18 09/18/18 09/18/18 11:27 17:10 22:03 POC Glucose 225 H 257 H 284 H Microbiology 09/13/18 12:50 Blood - Peripheral Aerobic Blood Culture - Final Group D Enterococcus 10/23/18 12:50 Blood - Peripheral Anaerobic Blood Culture - Final No growth in 5 days 09/14/18 19:14 Blood - Peripheral Aerobic Blood Culture - Preliminary No growth in 4 days 09/14/18 19:14 Blood - Peripheral Anaerobic Blood Culture - Preliminary No growth in 4 days 09/14/18 19:09 Blood - Peripheral Aerobic Blood Culture - Preliminary No growth in 4 days 09/14/18 19:09 Blood - Peripheral Anaerobic Blood Culture - Preliminary No growth in 4 days 09/13/18 12:55 Blood - Peripheral Aerobic Blood Culture - Final Enterococcus faecalis Enterococcus faecium 09/13/18 12:55 Blood - Peripheral Anaerobic Blood Culture - Final No growth in 5 days - Procedures PEG tube removed. Assessment and Plan - Assessment (1) Tachycardia Code(s): R00.0 - Tachycardia, unspecified Status: Acute (2) Acute UTI (urinary tract infection) Code(s): N39.0 - Urinary tract infection, site not specified Status: Acute (3) Respiratory failure Code(s): J96.90 - Respiratory failure, unspecified, unspecified whether with hypoxia or hypercapnia Status: Acute (4) Complication of feeding tube Code(s): K94.23 - Gastrostomy malfunction Status: Acute - Plan This is a pleasant 68 y/o Female with Depression, DM II, Hypertension, Hyperlipidemia, Morbid Obesity recently Hospitalized May 2018, UTI/Sepsis, she was discharged on tracheostomy and PEG tube. She returned to the emergency room on 09/13/18 with erythema and swelling around her PEG site and a partially displaced PEG tube. PEG tube displaced, status post PEG tube removal in ED on 09/13, GI specialist following, NPO status post Swallow test and cleared for clear liquid diet. eating well. - DIET HAS BEEN ADVANCED PER SPEECH A. fib/tachycardia -continue Warfarin, Pharmacy following, Heart rate controlled with digoxin. INR 3.9 on hold Warfarin today Sepsis on admission/probable Peritoneal infection/PEG site infection, Enterococcus Faecium and Faecalis. Grecia albicans. ESBL urine. Infectious disease is following, appreciate recommendations Stop IV Cubicin IV Unasyn to gave better Enterococcal coverage Change Zosyn to Invanz - to cover ESBL+. Repeat UA and C/S May need repeat CT A/P and GI re- eval since area with significant drainage of pus from previous PEG tube site. Continue Diflucan CT abdomen pelvis did not indicate abscess Sepsis on admission with leukocytosis, tachycardia, tachypnea, temperature of 100.9. Site of infection, PEG tube site cellulitis. Also with UTI ESBL. Patient with Bacteremia with Enterococcus. Wound cultures from PEG site pending. ID specialist following, Abx as above per ID recommendations. Follow cultures and sensitivity. Follow up repeat blood cultures NTD however with UTI ESBL abx changes as above. Respiratory failure with trach (placed 06/15/18) -Continue bronchodilator, Mucolytic and incentive spirometry. capped by Respiratory therapy. Consult pulm for trach evaluation. Spoke with Dr Marisela washington. + ESBL UTI -Patient previously admitted for sepsis/UTI -UA with culture Klebsiella Pneumonia and Grecia albicans. Now with ESBL + change zosyn to Invanz Hypertension probably secondary to IV fluids given. DVT prophylaxis: On warfarin, therapeutic INR 2.8 DIARRHEA START LACTINEX, C diff negative. LOMOTIL -PRN decreased IV fluids to 84 ml per hour and remove if continue eating well. Code Status: Full code. Discussed Condition With: Patient , nurse, Dr Marisela washington Discharge Planning: DC when improves and cleared by consultants ID Dr Duarte is ff Pulm Dr Antonio for trach management GI for PEG tube ( infected, and also poss fistula ? .Might need reeval with CT A /P as still with significant drainage of pus from previous PEG tube site.
[2018-09-19] MEDS: Diphenoxylate/Atropine 2.5/0.025 MG Tablet PO PRN ×2 (10:25→16:09)
[2018-09-19 12:13] LABS: INR 3.8 Ratio
[2018-09-19] MEDS ORDERED: ASP: Documented ESBL, MDR A baumannii or P. aeruginosa OTHER PRN (13:03)
--- NOTE | 2018-09-19 13:08 | P.PNID ---
Subjective Remarks: Patient is a 68-year-old female, brought into the hospital for evaluation of her PEG tube. Patient was hospitalized here back in May and at that time she was treated for sepsis. She had a UTI, and also had what looks like an infection on 1 of her toes on the right foot. She ended up on the respirator, and has required continued ventilatory support, requiring tracheostomy. She also had a PEG tube placed at that time. She was discharged to [facility] towards the end of May, and apparently she was discharged around the second week in August and has been at home. Patient gets tube feedings 24 hours a day, and she still is able to eat some. She has a Passy- David valve on her trach. She stays mostly in bed, and sometimes dangles at the side of the bed, and she could stand up but does not really do any ambulation. Recently apparently she has been having problem with leaking around the PEG tube. She was also noted to have some swelling around the PEG tube site. She presented to the hospital, and she had a fever of 100.9. Her white count is elevated at 14,000. She had a CT of the abdomen and pelvis which did not show any evidence of intra-abdominal abscess, but it shows that the PEG is almost out with some debris along the PEG tube tract and some into the peritoneal cavity. The PEG was removed in the ED. She had a swallowing eval with no evidence of aspiration. Patient currently is on a T-piece. She denies any shortness of breath. Her abdominal pain is better. She is awake and alert. Her temperatures are better. BP is stable and she is not on any pressor support. 2 blood cultures were done in the ED and one blood culture is currently going growing enterococcus. Her chest x-ray is normal. Infectious disease consultation has been requested to evaluate the patient with positive blood culture. Notes reviewed D/W RN Temps better Passed swallowing eval Trach has been capped since this weekend - doing well Pulmonary following Still draining a lot from previous PEG site No new (+) BC BC with Enterococcus PEG site with Enterococcus and Grecia albicans UC with Kleb ESBL and C glabrata Antibiotics: Zosyn Cubicin Diflucan Lines: PIV Past Medical History: MDRO (multiple drug resistant organisms) resistance Onset Date: ~09/13/18 Depression Diabetes Hypertension Hypertriglyceridemia Morbid obesity Tubal ligation PEG placement Tracheostomy Allergies/Adverse Reactions: Allergies No Known Allergies Allergy (Verified 05/30/18 22:08) Objective Vital Signs 09/18/18 16:00 09/18/18 17:25 09/18/18 20:00 Temperature 98.9 F 96.7 F L Pulse Rate 56 L 56 L 114 H Respiratory Rate 14 16 16 Blood Pressure 124/84 128/68 Pulse Oximetry 89 L 97 97 09/19/18 00:00 09/19/18 04:00 09/19/18 11:04 Temperature 98.4 F 98.2 F Pulse Rate 79 82 Respiratory Rate 18 16 Blood Pressure 140/67 132/68 Pulse Oximetry 100 99 99 Intake & Output 09/18/18 09/19/18 09/19/18 18:59 06:59 18:59 Intake Total 2650 / 2650 690 / 690 1050 / 1050 Output Total 900 / 900 700 / 700 Balance 1750 / 1750 -10 / -10 1050 / 1050 Weight 126 kg Intake: IV 1050 / 1050 450 / 450 1050 / 1050 NS Inj 1,000 ML @ 84 mls/hr IV. 1000 / 1000 1000 / 1000 CONT .[id number] BECKY Rx#:[id number] Cubicin Inj 720 MG In NS Inj 100 / 100 100 ML @ 200 mls/hr IV.SIG Q24H BECKY Rx#:[id number] Diflucan 400 mg Premix Bag 200 200 / 200 ML @ 100 mls/hr IV.SIG Q24H BECKY Rx#:[id number] Zosyn 3.375 GM Premix 50 ML @ 50 / 50 150 / 150 50 / 50 100 mls/hr IV.SIG Q6H BECKY Rx#: [id number] Oral 300 / 300 240 / 240 Other 1300 / 1300 Output: Urine 900 / 900 700 / 700 Other: Other Intake Source Saline Solution Date of Last Bowel Movement 09/18/18 09/18/18 # Bowel Movements 2 0 09/14/18 19:14 Blood - Peripheral Aerobic Blood Culture - Final No growth in 5 days 09/14/18 19:14 Blood - Peripheral Anaerobic Blood Culture - Final No growth in 5 days 09/14/18 19:09 Blood - Peripheral Aerobic Blood Culture - Final No growth in 5 days 09/14/18 19:09 Blood - Peripheral Anaerobic Blood Culture - Final No growth in 5 days 09/13/18 12:50 Blood - Peripheral Aerobic Blood Culture - Final Group D Enterococcus 09/13/18 12:50 Blood - Peripheral Anaerobic Blood Culture - Final No growth in 5 days 09/13/18 12:55 Blood - Peripheral Aerobic Blood Culture - Final Enterococcus faecalis Enterococcus faecium 09/13/18 12:55 Blood - Peripheral Anaerobic Blood Culture - Final No growth in 5 days 09/13/18 22:50 Catheterized Urine Urine Culture - Final Klebsiella pneumoniae ESBL pos Grecia glabrata 09/13/18 22:50 Wound - Abdominal Gram Stain - Final 09/13/18 22:50 Wound - Abdominal Wound Culture - Final Enterococcus faecium Greica albicans Lab - Chemistry Results 09/17/18 09/17/18 09/17/18 06:17 18:23 22:36 POC Glucose 235 H 188 H Hemoglobin A1c 6.6 H 09/18/18 09/18/18 09/18/18 11:27 17:10 22:03 POC Glucose 225 H 257 H 284 H Hemoglobin A1c 09/19/18 11:02 POC Glucose 128 H Hemoglobin A1c Imaging: ITS Impressions Chest X-Ray 09/13/18 12:51 CONCLUSION: Resolution of previously seen pulmonary edema. Abdomen/Pelvis CT 09/13/18 13:09 CONCLUSION: 1. The gastrostomy tube is pulled back into the superficial subcutaneous tissues, almost out. 2. Debris and induration along the tract through the subcutaneous tissues to the peritoneal cavity without evidence of intraperitoneal abscess, air or fluid 3. Pelvic findings of undetermined significance which appear grossly unchanged. Videofluoroscopic Swallow 09/14/18 00:00 CONCLUSION: No evidence of penetration or aspiration. See full report by the speech pathologist. Physical Exam: GENERAL: awake and alert, On T-piece, not in distress SKIN: Cool and dry. No generalized rash HEAD: Atraumatic. Normocephalic. No temporal wasting, or tenderness. EYES: Colstrip conjunctiva. No petechia or hemorrhage. Pupils equal, round and reactive to light. Extraocular movements full and intact. No scleral icterus. No injection or drainage. EARS, NOSE AND THROAT: Nose without bleeding or purulent nasal discharge. Mucous membranes pink and moist. No oral lesions noted. NECK: Tracheostomy site looks ok. Supple and not tender, no meningeal signs CARDIOVASCULAR: No murmurs, rubs or gallops heard RESPIRATORY: Coarse breath sounds sully, with scattered wheezing ABDOMEN: Soft, obese, previous PEG site about 1.5 cm opening, with surrounding erythema that is improving, and induration is about the same. Drainage is purulent and a lot when area gets squeezed. Less tender on palpation around previous PEG site. no crepitus. Bowel sounds present and normoactive. No guarding. No rebound. Has reducible UH EXTREMITIES: No clubbing, cyanosis, or edema. No calf tenderness. NO evidence of infection in any of her toes NEUROLOGICAL: Non-focal PSYCHIATRIC: Normal affect, calm and cooperative. LINE: No evidence of infection Assessment and Plan - Plan Impression Bacteremia with Enterococcus, due to abdominal wall cellulitis from PEG malposition Abdominal wall cellulitis UTI Respiratory failure, S/P trach, has passey-david valve Hx possible osteo of toe R foot - currently no obvious evidence of infection Recommendation Stop IV Cubicin IV Unasyn to gave better Enterococcal coverage Change Zosyn to Invanz - cover ESBL+ Repeat ua and C/S May need repeat CT A/P and GI eval since area still draining a lot Continue Diflucan Explained plan to the patient D/W RN
[2018-09-19] MEDS: Ampicillin/Sulbactam Inj 3 GM in Sodium Chloride 0.9% Inj 100 ML IV.SIG SCH ×2 (14:00→20:49)
[2018-09-19 16:08] LABS: Bilirubin,Urine Negative (Negative); Clarity,Urine Clear (Clear); Color,Urine Yellow (Yellw/Straw); Glucose,Urine (UA) 50 mg/dL (Negative); Leukocyte Esterase,Urine Negative (Negative); Mucus,Urine Few /lpf (Occasional); Nitrite,Urine Negative (Negative); Specific Gravity,Urine 1.015 (1.002-1.035); Squamous Epithelial Cell,Urine <1 /hpf (0-5)
[2018-09-19] MEDS: Acetaminophen 325 MG Tablet PO PRN (16:09)
[2018-09-19] MEDS: Budesonide-Formoterol 160/4.5 MCG 6 GM Inhaler INH SCH (21:15)
--- NOTE | 2018-09-19 23:57 | MB ---
cc: Mike Antonio MD DATE: 09/19/2018 REASON FOR CONSULTATION: Tracheostomy management with a history of respiratory failure. HISTORY OF PRESENT ILLNESS: This is a 68-year-old white female who initially was brought in for a malfunctioning PEG tube. The patient initially was in the hospital 3 months ago and was treated for sepsis with a UTI as well as cellulitis of her foot. She was intubated and on ventilator support and subsequently had a tracheostomy tube placed and a PEG tube placed. She was then transferred to [facility] for rehabilitation and was discharged from there in early August and had tracheostomy in place with a Passy-Marleni valve on her trach. She was having some leaks around the PEG tube and thus was seen in the emergency room with fever and an elevated white count. She then was admitted for suspicion of an acute abdomen and was noted to have the PEG tube almost dislodged and this was thus discontinued in the ER and she was then admitted for further evaluation as well as management of her tracheostomy that was in since the past 3 months. She was, however, breathing well with no evidence of respiratory distress or aspiration and the trach tube was capped since her admission and now has been capped for the past 48 hours. The patient is on the ventilator unit. She is having no trouble breathing and has no night sweats, fevers, chills, but apparently her blood cultures did grow Enterococcus and Infectious Disease is monitoring her cultures. The patient has no nausea or vomiting. She does take some soft diet. PAST MEDICAL HISTORY: Includes history of respiratory failure and a history for tracheostomy and PEG tube placement. She has diabetes and hypertension and a history for extreme obesity, prior history of tubal ligation and history of depression. ALLERGIES: NO KNOWN DRUG ALLERGIES. FAMILY HISTORY: Essentially noncontributory. MEDICATIONS: Medication list was reviewed from the chart. HABITS: The patient has a remote history of smoking and no significant alcohol use. REVIEW OF SYSTEMS: The patient has dizziness and postnasal drip. She has cough and wheezing. She has epigastric distress and some reflux. Denies any GI bleed. She did have some urinary frequency and flank pains as well as fevers and joint pains of her extremities and she has had some leg swelling. PHYSICAL EXAMINATION: GENERAL: Obese, middle-aged white female who is alert, no distress. Tracheostomy tube is capped. VITAL SIGNS: Blood pressure is 130/70, pulse is 85, respirations are 16, temperature 98.5. HEENT: Head is normocephalic. Pupils reactive. Tongue is moist. Throat is mildly injected. Ears: No inflammation. NECK: Supple. No bruits or thyroid enlargement. CHEST: Equal movements with percussion note resonant throughout with few basilar crackles. HEART: The heart sounds are regular S1 and S2. No murmur. No S3. ABDOMEN: Soft, protuberant without masses. No organomegaly or tenderness. Bowel sounds active. EXTREMITIES: No edema, mild varicosities. Reflexes 1+ with no gross motor deficits. NEUROLOGIC: Cranial nerves grossly intact. RECTAL: Deferred. SKIN: No lesions. IMPRESSION: 1. Status post tracheostomy for chronic respiratory failure. 2. Status post removal of PEG tube. 3. Bacteremia with Enterococcus. 4. Urinary tract infection. 5. Basilar atelectasis. PLAN: The patient will have the trach tube capped and she will be placed on O2 at 3 liters via nasal cannula, nebulized DuoNeb solution added q.i.d. and Symbicort 160/4.5 mcg 2 puffs twice a day. Chest x-ray to be done in a.m., and if she tolerates capped trach for the next 2 days and requiring no significant suctioning, we could discontinue the tracheostomy tube. Swallow study evaluation to be conducted and a bedside pulmonary function study to be done. Thank you Dr. Tha Suarez for this consultation. MD SUSAN Spence/king , 11:00 PM , 11:19 PM
[2018-09-20] MEDS: Ampicillin/Sulbactam Inj 3 GM in Sodium Chloride 0.9% Inj 100 ML IV.SIG SCH ×4 (02:30→21:29)
[2018-09-20] MEDS: Sod Chloride 0.9% Inj 1,000 ML IV.CONT SCH ×2 (05:17→15:42)
[2018-09-20] MEDS: Insulin NovoLOG Aspart Correctional Sugar Inj SQ SCH ×4 (08:00→21:29)
[2018-09-20 08:05] LABS: INR 2.5 Ratio; Prothrombin Time 25.4 sec (9.8-11.6)
--- NOTE | 2018-09-20 08:55 | P.PN ---
Subjective Interval history: The patient is in bed she appears sleepy she is tired. Not sleeping much at night. No fever or chills overnight. Says she does not have any abdominal pain at the wound site. Still with significant drainage pus coming out. Nurse did probe and from movement 7 cm inside the wound. Plan for CT repeat of the abdomen. No nausea or vomiting no diarrhea constipation.. Also seen by Dr. Kitchen discussed with pulmonology patient respiratory status improving. May remove trach 2-3 days. Physical Exam Vital signs: Vital Signs 09/19/18 11:04 09/19/18 12:00 09/19/18 14:47 Temperature 98.8 F Pulse Rate 98 H 61 Respiratory Rate 22 16 Blood Pressure 136/80 Pulse Oximetry 99 95 09/19/18 16:00 09/19/18 16:45 09/19/18 17:00 Temperature 98.7 F Pulse Rate 88 Respiratory Rate 24 20 Blood Pressure 118/74 Pulse Oximetry 96 98 09/19/18 20:00 09/19/18 20:53 09/20/18 00:00 Temperature 97 F L 98.5 F Pulse Rate 59 L 79 56 L Respiratory Rate 24 16 22 Blood Pressure 140/64 137/64 Pulse Oximetry 100 99 98 09/20/18 04:00 Temperature 99.1 F Pulse Rate 57 L Respiratory Rate 20 Blood Pressure 133/69 Pulse Oximetry 98 Intake & Output 09/19/18 09/20/18 09/20/18 18:59 06:59 18:59 Intake Total 3050 / 3050 1900 / 1900 Output Total 1800 / 1800 1900 / 1900 Balance 1250 / 1250 0 / 0 Weight 122.1 kg Intake: IV 2250 / 2250 1400 / 1400 NS Inj 1,000 ML @ 84 mls/hr IV. 1999 / 1999 1000 / 1000 CONT .[id number] BECKY Rx#:[id number] Unasyn Inj 3 GM In NS Inj 100 100 / 100 200 / 200 ML @ 200 mls/hr IV.SIG Q6H BECKY Rx#:[id number] INVanz Inj 1,000 MG In NS Inj 100 / 100 100 ML @ 200 mls/hr IV.SIG Q24H BECKY Rx#:[id number] Diflucan 400 mg Premix Bag 200 200 / 200 ML @ 100 mls/hr IV.SIG Q24H BECKY Rx#:[id number] Zosyn 3.375 GM Premix 50 ML @ 50 / 50 100 mls/hr IV.SIG Q6H BECKY Rx#: [id number] Oral 800 / 800 500 / 500 Output: Urine 1800 / 1800 1900 / 1900 Other: Date of Last Bowel Movement 09/19/18 09/19/18 # Bowel Movements 2 Narrative: GENERAL: Morbid obesity, no acute distress. SKIN: Focal skin exam wand edema around PEG tube site. NECK: Trach in place capped. CARDIOVASCULAR: Regular rate and rhythm without murmurs, gallops, or rubs. RESPIRATORY: Distant breath sounds. No accessory muscle use. GASTROINTESTINAL: Abdomen soft, obese non-tender, nondistended. Previous PEG tube site improving erythema and edema. Still with significant purulent drainage. MUSCULOSKELETAL: No cyanosis, or edema. BACK: Nontender without obvious deformity. No CVA tenderness. - Urinary Catheter Management Straight Cath placed during this visit: no Results - Labs CBC & Chem 7: 09/17/18 06:17 09/17/18 06:11 Laboratory Results - last 24 hr 09/19/18 09/19/18 09/19/18 11:02 11:50 13:45 PT 38.0 H INR 3.8 POC Glucose 128 H Urine Color Yellow Urine Clarity Clear Urine pH 5.0 Ur Specific [place] 1.015 Urine Protein Negative Urine Glucose (UA) 50 Urine Ketones Negative Urine Occult Blood Negative Urine Nitrate Negative Urine Bilirubin Negative Urine Urobilinogen Less than 2 Ur Leukocyte Esterase Negative Urine RBC 3 Urine WBC 6 H Ur Squamous Epith Cells <1 Urine Mucus Few H Urine Yeast Few H Micro UA Comment Culture not ind Ur Microscopic Review Not Reportable Urine Culture Comments Culture not ind 09/19/18 09/19/18 09/19/18 13:53 18:28 21:06 PT INR POC Glucose 213 H 290 H 271 H Urine Color Urine Clarity Urine pH Ur Specific [place] Urine Protein Urine Glucose (UA) Urine Ketones Urine Occult Blood Urine Nitrate Urine Bilirubin Urine Urobilinogen Ur Leukocyte Esterase Urine RBC Urine WBC Ur Squamous Epith Cells Urine Mucus Urine Yeast Micro UA Comment Ur Microscopic Review Urine Culture Comments 09/20/18 07:25 PT 25.4 H D INR 2.5 POC Glucose Urine Color Urine Clarity Urine pH Ur Specific [place] Urine Protein Urine Glucose (UA) Urine Ketones Urine Occult Blood Urine Nitrate Urine Bilirubin Urine Urobilinogen Ur Leukocyte Esterase Urine RBC Urine WBC Ur Squamous Epith Cells Urine Mucus Urine Yeast Micro UA Comment Ur Microscopic Review Urine Culture Comments Microbiology 09/14/18 19:14 Blood - Peripheral Aerobic Blood Culture - Final No growth in 5 days 09/14/18 19:14 Blood - Peripheral Anaerobic Blood Culture - Final No growth in 5 days 09/14/18 19:09 Blood - Peripheral Aerobic Blood Culture - Final No growth in 5 days 09/14/18 19:09 Blood - Peripheral Anaerobic Blood Culture - Final No growth in 5 days - Procedures PEG tube removed. Assessment and Plan - Assessment (1) Tachycardia Code(s): R00.0 - Tachycardia, unspecified Status: Acute (2) Acute UTI (urinary tract infection) Code(s): N39.0 - Urinary tract infection, site not specified Status: Acute (3) Respiratory failure Code(s): J96.90 - Respiratory failure, unspecified, unspecified whether with hypoxia or hypercapnia Status: Acute (4) Complication of feeding tube Code(s): K94.23 - Gastrostomy malfunction Status: Acute - Plan This is a pleasant 68 y/o Female with Depression, DM II, Hypertension, Hyperlipidemia, Morbid Obesity recently Hospitalized May 2018, UTI/Sepsis, she was discharged on tracheostomy and PEG tube. She returned to the emergency room on 09/13/18 with erythema and swelling around her PEG site and a partially displaced PEG tube. PEG tube displaced, status post PEG tube removal in ED on 09/13, GI specialist following, NPO status post Swallow test and cleared for clear liquid diet. eating well. - DIET HAS BEEN ADVANCED PER SPEECH A. fib/tachycardia -continue Warfarin, Pharmacy following, Heart rate controlled with digoxin. INR 3.9 on hold Warfarin today Sepsis on admission/ Peritoneal infection/PEG site infection, Enterococcus Faecium and Faecalis. Grecia albicans. ESBL urine. Infectious disease is following, appreciate recommendations IV Cubicin stopped 09/19 per ID Continue IV Unasyn to gave better Enterococcal coverage Changed Zosyn to Invanz - to cover ESBL+. Repeat UA and C/S Plan to repeat CT A/P 09/20/18 GI re- evaluated patient since area with significant drainage of pus from previous PEG tube site. Continue Diflucan Previous CT abdomen pelvis did not indicate abscess, however plan to repeat CT A /P 09/20/18 Sepsis on admission with leukocytosis, tachycardia, tachypnea, temperature of 100.9. Site of infection, PEG tube site cellulitis. Also with UTI ESBL. Patient with Bacteremia with Enterococcus. Wound cultures from PEG site pending. ID specialist following, Abx as above per ID recommendations. Follow cultures and sensitivity. Follow up repeat blood cultures NTD however with UTI ESBL abx changes as above. Respiratory failure with trach (placed 06/15/18) -Continue bronchodilator, Mucolytic and incentive spirometry. capped by Respiratory therapy. Consult pulm for trach evaluation. Spoke with Dr Marisela washington. + ESBL UTI -Patient previously admitted for sepsis/UTI -UA with culture Klebsiella Pneumonia and Grecia albicans. Now with ESBL + change zosyn to Invanz Hypertension probably secondary to IV fluids given. DVT prophylaxis: On warfarin, therapeutic INR 2.8 DIARRHEA START LACTINEX, C diff negative. LOMOTIL -PRN decreased IV fluids to 84 ml per hour and remove if continue eating well. Code Status: Full code. Discussed Condition With: Patient , nurse, Dr Marisela washington Discharge Planning: DC when improves and cleared by consultants ID Dr Duarte is ff Pulm Dr Antonio for trach management is also ff, poss trach removal in 2-3 days depending of clinical improvement GI for PEG tube ( infected, and also poss fistula ? .Reeval with CT A/P as still with significant drainage of pus from previous PEG tube site.
[2018-09-20] MEDS: Lactobacillus Acidophilus/L. Spores Tablet PO SCH ×3 (09:00→18:11)
[2018-09-20] MEDS: Budesonide-Formoterol 160/4.5 MCG 6 GM Inhaler INH SCH ×2 (09:00→21:38)
[2018-09-20] MEDS: Digoxin 125 MCG Tablet PO SCH (09:00)
[2018-09-20] MEDS ORDERED: Diatrizoate Meglum/Diatrizoate Sod Liq 9 ML UDC PO ONE (09:49)
--- NOTE | 2018-09-20 09:56 | P.PNID ---
Subjective Remarks: Patient is a 68-year-old female, brought into the hospital for evaluation of her PEG tube. Patient was hospitalized here back in May and at that time she was treated for sepsis. She had a UTI, and also had what looks like an infection on 1 of her toes on the right foot. She ended up on the respirator, and has required continued ventilatory support, requiring tracheostomy. She also had a PEG tube placed at that time. She was discharged to [facility] towards the end of May, and apparently she was discharged around the second week in August and has been at home. Patient gets tube feedings 24 hours a day, and she still is able to eat some. She has a Passy- David valve on her trach. She stays mostly in bed, and sometimes dangles at the side of the bed, and she could stand up but does not really do any ambulation. Recently apparently she has been having problem with leaking around the PEG tube. She was also noted to have some swelling around the PEG tube site. She presented to the hospital, and she had a fever of 100.9. Her white count is elevated at 14,000. She had a CT of the abdomen and pelvis which did not show any evidence of intra-abdominal abscess, but it shows that the PEG is almost out with some debris along the PEG tube tract and some into the peritoneal cavity. The PEG was removed in the ED. She had a swallowing eval with no evidence of aspiration. Patient currently is on a T-piece. She denies any shortness of breath. Her abdominal pain is better. She is awake and alert. Her temperatures are better. BP is stable and she is not on any pressor support. 2 blood cultures were done in the ED and one blood culture is currently going growing enterococcus. Her chest x-ray is normal. Infectious disease consultation has been requested to evaluate the patient with positive blood culture. Notes reviewed D/W RN Low grade temps again this morning Tolerating capped trach Still draining a lot from previous PEG site Repeat UA same No new (+) BC BC with Enterococcus PEG site with Enterococcus and Grecia albicans UC with Kleb ESBL and C glabrata Antibiotics: Invanz Unasyn Diflucan Lines: PIV Past Medical History: MDRO (multiple drug resistant organisms) resistance Onset Date: ~09/13/18 Depression Diabetes Hypertension Hypertriglyceridemia Morbid obesity Tubal ligation PEG placement Tracheostomy Allergies/Adverse Reactions: Allergies No Known Allergies Allergy (Verified 05/30/18 22:08) Objective Vital Signs 09/19/18 11:04 09/19/18 12:00 09/19/18 14:47 Temperature 98.8 F Pulse Rate 98 H 61 Respiratory Rate 22 16 Blood Pressure 136/80 Pulse Oximetry 99 95 09/19/18 16:00 09/19/18 16:45 09/19/18 17:00 Temperature 98.7 F Pulse Rate 88 Respiratory Rate 24 20 Blood Pressure 118/74 Pulse Oximetry 96 98 09/19/18 20:00 09/19/18 20:53 09/20/18 00:00 Temperature 97 F L 98.5 F Pulse Rate 59 L 79 56 L Respiratory Rate 24 16 22 Blood Pressure 140/64 137/64 Pulse Oximetry 100 99 98 09/20/18 04:00 09/20/18 08:00 09/20/18 08:15 Temperature 99.1 F 100.1 F H Pulse Rate 57 L 67 Respiratory Rate 20 24 Blood Pressure 133/69 142/86 H Pulse Oximetry 98 90 L 93 L 09/20/18 09:25 09/20/18 09:30 Temperature Pulse Rate Respiratory Rate Blood Pressure Pulse Oximetry 90 L 93 L Intake & Output 09/19/18 09/20/18 09/20/18 18:59 06:59 18:59 Intake Total 3050 / 3050 1900 / 1900 Output Total 1800 / 1800 1900 / 1900 Balance 1250 / 1250 0 / 0 Weight 122.1 kg Intake: IV 2250 / 2250 1400 / 1400 NS Inj 1,000 ML @ 84 mls/hr IV. 1999 / 1999 1000 / 1000 CONT .[id number] BECKY Rx#:[id number] Unasyn Inj 3 GM In NS Inj 100 100 / 100 200 / 200 ML @ 200 mls/hr IV.SIG Q6H BECKY Rx#:[id number] INVanz Inj 1,000 MG In NS Inj 100 / 100 100 ML @ 200 mls/hr IV.SIG Q24H BECKY Rx#:[id number] Diflucan 400 mg Premix Bag 200 200 / 200 ML @ 100 mls/hr IV.SIG Q24H BECKY Rx#:[id number] Zosyn 3.375 GM Premix 50 ML @ 50 / 50 100 mls/hr IV.SIG Q6H BECKY Rx#: [id number] Oral 800 / 800 500 / 500 Output: Urine 1800 / 1800 1900 / 1900 Other: Date of Last Bowel Movement 09/19/18 09/19/18 # Bowel Movements 2 09/14/18 19:14 Blood - Peripheral Aerobic Blood Culture - Final No growth in 5 days 09/14/18 19:14 Blood - Peripheral Anaerobic Blood Culture - Final No growth in 5 days 09/14/18 19:09 Blood - Peripheral Aerobic Blood Culture - Final No growth in 5 days 09/14/18 19:09 Blood - Peripheral Anaerobic Blood Culture - Final No growth in 5 days 09/13/18 12:50 Blood - Peripheral Aerobic Blood Culture - Final Group D Enterococcus 09/13/18 12:50 Blood - Peripheral Anaerobic Blood Culture - Final No growth in 5 days 09/13/18 12:55 Blood - Peripheral Aerobic Blood Culture - Final Enterococcus faecalis Enterococcus faecium 09/13/18 12:55 Blood - Peripheral Anaerobic Blood Culture - Final No growth in 5 days 09/13/18 22:50 Catheterized Urine Urine Culture - Final Klebsiella pneumoniae ESBL pos Grecia glabrata Lab - Chemistry Results 09/18/18 09/18/18 09/18/18 11:27 17:10 22:03 POC Glucose 225 H 257 H 284 H 09/19/18 09/19/18 09/19/18 11:02 13:53 18:28 POC Glucose 128 H 213 H 290 H 09/19/18 21:06 POC Glucose 271 H Imaging: ITS Impressions Chest X-Ray 09/13/18 12:51 CONCLUSION: Resolution of previously seen pulmonary edema. Abdomen/Pelvis CT 09/13/18 13:09 CONCLUSION: 1. The gastrostomy tube is pulled back into the superficial subcutaneous tissues, almost out. 2. Debris and induration along the tract through the subcutaneous tissues to the peritoneal cavity without evidence of intraperitoneal abscess, air or fluid 3. Pelvic findings of undetermined significance which appear grossly unchanged. Videofluoroscopic Swallow 09/14/18 00:00 CONCLUSION: No evidence of penetration or aspiration. See full report by the speech pathologist. Physical Exam: GENERAL: awake and alert, On T-piece, not in distress SKIN: Cool and dry. No generalized rash HEAD: Atraumatic. Normocephalic. No temporal wasting, or tenderness. EYES: [place] conjunctiva. No petechia or hemorrhage. Pupils equal, round and reactive to light. Extraocular movements full and intact. No scleral icterus. No injection or drainage. EARS, NOSE AND THROAT: Nose without bleeding or purulent nasal discharge. Mucous membranes pink and moist. No oral lesions noted. NECK: Tracheostomy site looks ok. Supple and not tender, no meningeal signs CARDIOVASCULAR: No murmurs, rubs or gallops heard RESPIRATORY: Coarse breath sounds sully, with scattered wheezing ABDOMEN: Soft, obese, previous PEG site about 1.5 cm opening, with surrounding erythema that is improving, and induration is about the same. Drainage is purulent and a lot when area gets squeezed. Less tender on palpation around previous PEG site. no crepitus. Bowel sounds present and normoactive. No guarding. No rebound. Has reducible UH EXTREMITIES: No clubbing, cyanosis, or edema. No calf tenderness. NO evidence of infection in any of her toes NEUROLOGICAL: Non-focal PSYCHIATRIC: Normal affect, calm and cooperative. LINE: No evidence of infection Assessment and Plan - Plan Impression Bacteremia with Enterococcus, due to abdominal wall cellulitis from PEG malposition Abdominal wall cellulitis UTI Respiratory failure, S/P trach, has passey-david valve Hx possible osteo of toe R foot - currently no obvious evidence of infection Low grade temps Recommendation Continue IV Unasyn to gave better Enterococcal coverage Continue Invanz - cover ESBL+ Repeat C/S PEG site Repeat CT A/P Continue Diflucan Follow new C/S Follow temps Monitor progress Explained plan to the patient D/W NEENA
[2018-09-20] MEDS: predniSONE 20 MG Tablet PO SCH (10:39)
[2018-09-20] MEDS: LORazepam 1 MG Tablet PO PRN ×3 (11:45→21:31)
--- NOTE | 2018-09-20 17:32 | CT ---
EXAM DATE: 09/20/2018 5:20 PM EDT AGE/SEX: 68 years / Female INDICATIONS: Evaluate for abdominal abscess. CLINICAL DATA: This is the patient's initial encounter. Patient reports that signs and symptoms have been present for 1 day and indicates a pain score of 6/10. MEDICAL/SURGICAL HISTORY: Diabetes. Hypertension. Tubal ligation. ORAL CONTRAST: Prescribed oral contrast ingested. RADIATION DOSE: 23.24 CTDI (mGy) ; Patient body habitus [place] [facility] [place]/13/2018. . TECHNIQUE: Multiple contiguous axial images were obtained through the abdomen and pelvis following b olus infusion of 92 ml Omnipaque 350 (iohexol) nonionic water-soluble contrast as a single exam dos e. Prescribed oral contrast ingested. Using automated exposure control and adjustment of the mA and/ or kV according to patient size, radiation dose was kept as low as reasonably achievable to obtain op timal diagnostic quality images. DICOM format image data is available electronically for review and comparison. FINDINGS: Lower Lungs: Mild bibasilar atelectasis. The heart is enlarged. Liver: The liver has a homogeneous density without space-occupying lesion. There is no dilation of th e biliary tree. Lucent debris within the gallbladder I suspect gallstones. Spleen: Homogeneous density without enlargement. Pancreas: Unremarkable without mass or calcification. Kidneys: Normal in size and shape. No evidence of mass or hydronephrosis except right renal cyst. Adrenal Glands: Unremarkable. Aorta: The aorta and proximal iliac vessels are grossly unremarkable without aneurysmal dilation. Bowel/Mesentery: The bowel loops are grossly unremarkable. The cecum and sigmoid colon have a normal configuration. Abdominal Wall: There are number of abnormalities. Below the umbilicus in the anterior left abdomen there is a large fat-containing hernia with a peritoneal defect is 3.6 cm across. The subcutaneous fa t it expands to 8.8 cm a large fatty hernia. It does not contain any loops of bowel. There again is some induration and fluid associated with the G-tube tract. Its smaller and less impre ssive than it was on the however there is residual soft tissue and enhancement. The G-tube tract itself measures 2.3 x 3.8 cm across. There is some air within subcutaneous fat. Enhancing nodular ar eas of soft tissue within the anterior abdominal wall medial to the G-tube tract. Small 2 cm soft tissue nodule in the anterior right pelvis anterior to the inguinal region may be rel ated to recent injection Retroperitoneum: No evidence of adenopathy in the retrocrural, para-aortic, or deep pelvic regions. Bladder: Contours are smooth. Reproductive Organs: Large lobular soft tissue mass in the right hemipelvis certainly abuts the uter us. Could be related to the right ovary. The mass is 11.0 cm in length. Outpatient pelvic MRI is rec ommended. Inguinal: The inguinal region is unremarkable without evidence of adenopathy. Bony Structures: Unremarkable. CONCLUSION: 1. No significant inflammation and induration around the patient's G-tube tract with a number of sma ll soft tissue nodules medial to the tract could be additional areas of infection. There is no large drainable abscess just diffuse induration and small collections of soft tissue presumed infection. 2. Large fatty abdominal wall hernia in the left anterior abdomen. 3. Gallstones in a noninflamed gallbladder 4. Low-density but lobulated pelvic mass on the right. Need to rule out ovarian malignancy. Outpatie nt pelvic MRI is recommended Electronically signed by: Ryan Marrero MD 09/20/2018 5:30 PM EDT
--- NOTE | 2018-09-20 20:27 | P.PN ---
Subjective Interval history: Resting comfortably. Trach site is clean No abdominal pains. No fever On O2 2 L Physical Exam Vital signs: Vital Signs 09/19/18 20:53 09/20/18 00:00 09/20/18 04:00 Temperature 98.5 F 99.1 F Pulse Rate 79 56 L 57 L Respiratory Rate 16 22 20 Blood Pressure 137/64 133/69 Pulse Oximetry 99 98 98 09/20/18 08:00 09/20/18 08:10 09/20/18 08:15 Temperature 100.1 F H Pulse Rate 67 Respiratory Rate 24 Blood Pressure 142/86 H Pulse Oximetry 88 L 90 L 93 L 09/20/18 08:20 09/20/18 09:25 09/20/18 09:30 Temperature Pulse Rate 69 Respiratory Rate 20 Blood Pressure Pulse Oximetry 93 L 90 L 93 L 09/20/18 12:00 09/20/18 12:34 09/20/18 16:00 Temperature 100.3 F H 100.4 F H Pulse Rate 77 80 Respiratory Rate 22 24 Blood Pressure 138/80 132/78 Pulse Oximetry 95 95 96 Intake & Output 09/20/18 09/20/18 09/21/18 06:59 18:59 06:59 Intake Total 1900 / 1900 2400 / 2400 Output Total 1900 / 1900 2200 / 2200 Balance 0 / 0 200 / 200 Weight 122.1 kg Intake: IV 1400 / 1400 1300 / 1300 NS Inj 1,000 ML @ 84 mls/hr IV. 1000 / 1000 1000 / 1000 CONT .[id number] BECKY Rx#:[id number] Unasyn Inj 3 GM In NS Inj 100 200 / 200 200 / 200 ML @ 200 mls/hr IV.SIG Q6H BECKY Rx#:[id number] INVanz Inj 1,000 MG In NS Inj 100 / 100 100 ML @ 200 mls/hr IV.SIG Q24H BECKY Rx#:[id number] Diflucan 400 mg Premix Bag 200 200 / 200 ML @ 100 mls/hr IV.SIG Q24H BECKY Rx#:[id number] Oral 500 / 500 1100 / 1100 Output: Urine 1900 / 1900 2200 / 2200 Other: Date of Last Bowel Movement 09/19/18 09/20/18 # Bowel Movements 3 Narrative: GENERAL: Elderly W/F Morbidly obese, no acute distress. SKIN: Focal skin exam wand edema around PEG tube site. NECK: Trach in place ,capped. CARDIOVASCULAR: Regular rate and rhythm without murmurs, gallops, or rubs. RESPIRATORY: Distant breath sounds. No accessory muscle use. GASTROINTESTINAL: Abdomen soft, obese non-tender, nondistended. Previous PEG tube site improving erythema and edema. Still with significant purulent drainage. MUSCULOSKELETAL: No cyanosis, or edema. BACK: Nontender without obvious deformity. No CVA tenderness. - Urinary Catheter Management Straight Cath placed during this visit: no Results - Labs CBC & Chem 7: 09/17/18 06:17 09/17/18 06:11 Laboratory Results - last 24 hr 09/19/18 09/20/18 09/20/18 21:06 07:25 10:31 PT 25.4 H D INR 2.5 POC Glucose 271 H 130 H 09/20/18 09/20/18 13:19 17:37 PT INR POC Glucose 275 H 254 H - Imaging Impressions Abdomen/Pelvis CT 09/20/18 00:00 CONCLUSION: 1. No significant inflammation and induration around the patient's G-tube tract with a number of small soft tissue nodules medial to the tract could be additional areas of infection. There is no large drainable abscess just diffuse induration and small collections of soft tissue presumed infection. 2. Large fatty abdominal wall hernia in the left anterior abdomen. 3. Gallstones in a noninflamed gallbladder 4. Low-density but lobulated pelvic mass on the right. Need to rule out ovarian malignancy. Outpatient pelvic MRI is recommended - Procedures PEG tube removed. Assessment and Plan - Assessment (1) Status post tracheostomy Code(s): Z93.0 - Tracheostomy status Status: Acute (2) Acute kidney injury Code(s): N17.9 - Acute kidney failure, unspecified Status: Acute (3) Acute UTI (urinary tract infection) Code(s): N39.0 - Urinary tract infection, site not specified Status: Acute (4) Hypoxia Code(s): R09.02 - Hypoxemia Status: Acute (5) SVT (supraventricular tachycardia) Code(s): I47.1 - Supraventricular tachycardia Status: Acute (6) Sepsis secondary to UTI Code(s): A41.9 - Sepsis, unspecified organism; N39.0 - Urinary tract infection, site not specified Status: Acute (7) Hyperkalemia, diminished renal excretion Code(s): E87.5 - Hyperkalemia Status: Resolved (8) Hypernatremia Code(s): E87.0 - Hyperosmolality and hypernatremia Status: Acute (9) Respiratory failure Code(s): J96.90 - Respiratory failure, unspecified, unspecified whether with hypoxia or hypercapnia Status: Acute - Plan 1. O2 2 L N/C 2. Leave trach capped. 3 Cont Antibiotics for Enterococcal sepsis. 4. IS q3h bedside 5. Duoneb nebs qid. 6. Will D/C Trach on if stable
[2018-09-20] MEDS: Acetaminophen 325 MG Tablet PO PRN (21:31)
[2018-09-21] MEDS: Ampicillin/Sulbactam Inj 3 GM in Sodium Chloride 0.9% Inj 100 ML IV.SIG SCH ×4 (03:14→20:05)
[2018-09-21] MEDS: Sod Chloride 0.9% Inj 1,000 ML IV.CONT SCH ×2 (03:14→15:02)
[2018-09-21] MEDS: Digoxin 125 MCG Tablet PO SCH (09:40)
[2018-09-21] MEDS: Lactobacillus Acidophilus/L. Spores Tablet PO SCH ×3 (09:40→17:11)
[2018-09-21] MEDS: predniSONE 20 MG Tablet PO SCH (09:40)
[2018-09-21] MEDS: Insulin NovoLOG Aspart Correctional Sugar Inj SQ SCH ×4 (09:40→21:30)
[2018-09-21] MEDS: Budesonide-Formoterol 160/4.5 MCG 6 GM Inhaler INH SCH ×2 (09:41→21:00)
--- NOTE | 2018-09-21 09:43 | P.PNID ---
Subjective Remarks: Patient is a 68-year-old female, brought into the hospital for evaluation of her PEG tube. Patient was hospitalized here back in May and at that time she was treated for sepsis. She had a UTI, and also had what looks like an infection on 1 of her toes on the right foot. She ended up on the respirator, and has required continued ventilatory support, requiring tracheostomy. She also had a PEG tube placed at that time. She was discharged to [facility] towards the end of May, and apparently she was discharged around the second week in August and has been at home. Patient gets tube feedings 24 hours a day, and she still is able to eat some. She has a Passy- Marleni valve on her trach. She stays mostly in bed, and sometimes dangles at the side of the bed, and she could stand up but does not really do any ambulation. Recently apparently she has been having problem with leaking around the PEG tube. She was also noted to have some swelling around the PEG tube site. She presented to the hospital, and she had a fever of 100.9. Her white count is elevated at 14,000. She had a CT of the abdomen and pelvis which did not show any evidence of intra-abdominal abscess, but it shows that the PEG is almost out with some debris along the PEG tube tract and some into the peritoneal cavity. The PEG was removed in the ED. She had a swallowing eval with no evidence of aspiration. Patient currently is on a T-piece. She denies any shortness of breath. Her abdominal pain is better. She is awake and alert. Her temperatures are better. BP is stable and she is not on any pressor support. 2 blood cultures were done in the ED and one blood culture is currently going growing enterococcus. Her chest x-ray is normal. Infectious disease consultation has been requested to evaluate the patient with positive blood culture. Notes reviewed Fevers yesterday, ok this morning Repeat CT A/P noted - has new nodular areas medial to PEG tract, ?beginning abscess WBC normal Repeat wound C/S pending Tolerating capped trach Still draining a lot from previous PEG site Antibiotics: Invanz Unasyn Diflucan Lines: PIV Past Medical History: MDRO (multiple drug resistant organisms) resistance Onset Date: ~09/13/18 Depression Diabetes Hypertension Hypertriglyceridemia Morbid obesity Tubal ligation PEG placement Tracheostomy Allergies/Adverse Reactions: Allergies No Known Allergies Allergy (Verified 05/30/18 22:08) Objective Vital Signs 09/20/18 12:00 09/20/18 12:34 09/20/18 16:00 Temperature 100.3 F H 100.4 F H Pulse Rate 77 80 Respiratory Rate 22 24 Blood Pressure 138/80 132/78 Pulse Oximetry 95 95 96 09/20/18 20:00 09/20/18 22:23 09/21/18 00:00 Temperature 98.8 F 98.5 F Pulse Rate 106 H 75 75 Respiratory Rate 20 17 20 Blood Pressure 145/93 H 127/71 Pulse Oximetry 99 94 L 09/21/18 04:00 09/21/18 08:22 Temperature 98.8 F Pulse Rate 79 Respiratory Rate 18 19 Blood Pressure 129/81 Pulse Oximetry 98 98 Intake & Output 09/20/18 09/21/18 09/21/18 18:59 06:59 18:59 Intake Total 2400 / 2400 3205 / 3205 Output Total 2200 / 2200 900 / 900 Balance 200 / 200 2305 / 2305 Weight 122.1 kg Intake: IV 1300 / 1300 1400 / 1400 NS Inj 1,000 ML @ 84 mls/hr IV. 1000 / 1000 1000 / 1000 CONT .[id number] BECKY Rx#:[id number] Unasyn Inj 3 GM In NS Inj 100 200 / 200 200 / 200 ML @ 200 mls/hr IV.SIG Q6H BECKY Rx#:[id number] INVanz Inj 1,000 MG In NS Inj 100 / 100 100 ML @ 200 mls/hr IV.SIG Q24H BECKY Rx#:[id number] Diflucan 400 mg Premix Bag 200 200 / 200 ML @ 100 mls/hr IV.SIG Q24H BECKY Rx#:[id number] Oral 1100 / 1100 480 / 480 Other 1325 / 1325 Output: Urine 2200 / 2200 900 / 900 Other: Other Intake Source Saline Solution Date of Last Bowel Movement 09/20/18 # Bowel Movements 3 09/20/18 09:30 Abscess - Abdominal Gram Stain - Final 09/20/18 09:30 Abscess - Abdominal Wound Culture - Pending 09/14/18 19:14 Blood - Peripheral Aerobic Blood Culture - Final No growth in 5 days 09/14/18 19:14 Blood - Peripheral Anaerobic Blood Culture - Final No growth in 5 days 09/14/18 19:09 Blood - Peripheral Aerobic Blood Culture - Final No growth in 5 days 09/14/18 19:09 Blood - Peripheral Anaerobic Blood Culture - Final No growth in 5 days 09/13/18 12:50 Blood - Peripheral Aerobic Blood Culture - Final Group D Enterococcus 09/13/18 12:50 Blood - Peripheral Anaerobic Blood Culture - Final No growth in 5 days 09/13/18 12:55 Blood - Peripheral Aerobic Blood Culture - Final Enterococcus faecalis Enterococcus faecium 09/13/18 12:55 Blood - Peripheral Anaerobic Blood Culture - Final No growth in 5 days Lab - Chemistry Results 09/19/18 09/19/18 09/19/18 11:02 13:53 18:28 POC Glucose 128 H 213 H 290 H 09/19/18 09/20/18 09/20/18 21:06 10:31 13:19 POC Glucose 271 H 130 H 275 H 09/20/18 09/20/18 09/20/18 17:37 21:20 21:20 POC Glucose 254 H 101 265 H 09/21/18 09:26 POC Glucose 158 H Imaging: ITS Impressions Chest X-Ray 09/13/18 12:51 CONCLUSION: Resolution of previously seen pulmonary edema. Videofluoroscopic Swallow 09/14/18 00:00 CONCLUSION: No evidence of penetration or aspiration. See full report by the speech pathologist. Abdomen/Pelvis CT 09/20/18 00:00 CONCLUSION: 1. No significant inflammation and induration around the patient's G-tube tract with a number of small soft tissue nodules medial to the tract could be additional areas of infection. There is no large drainable abscess just diffuse induration and small collections of soft tissue presumed infection. 2. Large fatty abdominal wall hernia in the left anterior abdomen. 3. Gallstones in a noninflamed gallbladder 4. Low-density but lobulated pelvic mass on the right. Need to rule out ovarian malignancy. Outpatient pelvic MRI is recommended Physical Exam: GENERAL: awake and alert, On T-piece, NAD SKIN: Cool and dry. No generalized rash HEAD: Atraumatic. Normocephalic. No temporal wasting, or tenderness. EYES: [place] conjunctiva. No petechia or hemorrhage. Pupils equal, round and reactive to light. Extraocular movements full and intact. No scleral icterus. No injection or drainage. EARS, NOSE AND THROAT: Nose without bleeding or purulent nasal discharge. Mucous membranes pink and moist. No oral lesions noted. NECK: Tracheostomy site looks ok. Supple and not tender, no meningeal signs CARDIOVASCULAR: No murmurs, rubs or gallops heard RESPIRATORY: Coarse breath sounds sully, with scattered wheezing ABDOMEN: Soft, obese, previous PEG site about 1.5 cm opening, with surrounding erythema that is improving, and induration is about the same. Drainage is purulent and a lot when area gets squeezed. Less tender on palpation around previous PEG site. no crepitus. Bowel sounds present and normoactive. No guarding. No rebound. Has reducible UH EXTREMITIES: No clubbing, cyanosis, or edema. No calf tenderness. NO evidence of infection in any of her toes NEUROLOGICAL: Non-focal PSYCHIATRIC: Normal affect, calm and cooperative. LINE: No evidence of infection Assessment and Plan - Plan Impression Bacteremia with Enterococcus, due to abdominal wall cellulitis from PEG malposition Abdominal wall cellulitis UTI Respiratory failure, S/P trach, has passey-marleni valve Hx possible osteo of toe R foot - currently no obvious evidence of infection Low grade temps Recommendation Continue IV Unasyn to gave better Enterococcal coverage Continue Invanz - cover ESBL+ Follow repeat C/S PEG site Continue Diflucan Follow new C/S Follow temps Monitor progress Will ask surgery opinion: regarding other treatment options, has new nodular abscess possibly beginning abscess and still running fevers
[2018-09-21 11:08] LABS: Baso # (Auto) 0.1 th/mm3 (0.0-0.2); Baso % (Auto) 1.3 % (0.0-2.0); Eos # (Auto) 0.2 th/mm3 (0.0-0.4); Eos % (Auto) 2.6 % (0.0-4.0); Hemoglobin 12.1 gm/dL (11.6-15.3); Lymph # (Auto) 1.8 th/mm3 (1.0-4.8); Lymph % (Auto) 21.2 % (9.0-44.0); Mean Corpuscular HGB Conc 32.6 % (32.0-36.0); Mean Corpuscular Hemoglobin 30.3 pg (27.0-34.0); Mean Platelet Volume 6.7 fL (7.0-11.0); Mono # (Auto) 0.5 th/mm3 (0.0-0.9); Mono % (Auto) 5.9 % (0.0-8.0); Platelet Count 238 th/mm3 (150-450); Red Blood Count 3.98 mil/mm3 (4.00-5.30); Red Cell Distribution Width 17.4 % (11.6-17.2); White Blood Count 8.7 th/mm3 (4.0-11.0)
[2018-09-21 11:11] LABS: INR 1.7 Ratio; Prothrombin Time 17.4 sec (9.8-11.6)
[2018-09-21 11:38] LABS: Albumin 2.5 g/dL (3.4-5.0); Anion Gap 8 meq/L (5-15); Aspartate Aminotransferase 16 U/L (15-37); Blood Urea Nitrogen 15 mg/dL (7-18); Calcium 8.3 mg/dL (8.5-10.1); Carbon Dioxide 34.9 meq/L (21.0-32.0); Chloride 99 meq/L (98-107); Glomerular Filtration Rate 77 mL/min (>89); Glucose,Random 124 mg/dL (74-106); Potassium 3.8 meq/L (3.5-5.1); Sodium 142 meq/L (136-145)
[2018-09-21 11:40] LABS: Alanine Aminotransferase 34 U/L (10-53)
[2018-09-21 11:42] LABS: Alkaline Phosphatase 64 U/L (45-117); Total Protein 6.4 g/dL (6.4-8.2)
[2018-09-21 12:05] LABS: Eosinophils 5 % (0-4); Lymphocytes 17 % (9-44); Monocytes 2 % (0-8); Myelocytes 2 % (0-0); Promyelocyte 1 % (0-0)
[2018-09-21 12:06] LABS: Ovalocytes 1+; Spherocytes Occ
[2018-09-21 12:07] LABS: Platelet Estimate Normal (Normal); Platelet Morphology Normal (Normal); Tear Drop Cells 1+
--- NOTE | 2018-09-21 13:27 | P.PN ---
Subjective Interval history: In bed feeling better. Eating. No fever or chills. No abdominal pain. Feels very tired. Physical Exam Vital signs: Vital Signs 09/20/18 16:00 09/20/18 20:00 09/20/18 22:23 Temperature 100.4 F H 98.8 F Pulse Rate 80 106 H 75 Respiratory Rate 24 20 17 Blood Pressure 132/78 145/93 H Pulse Oximetry 96 99 09/21/18 00:00 09/21/18 04:00 09/21/18 08:00 Temperature 98.5 F 98.8 F 98.6 F Pulse Rate 75 78 Respiratory Rate 20 18 Blood Pressure 127/71 129/81 130/68 Pulse Oximetry 94 L 98 09/21/18 08:22 Temperature Pulse Rate 79 Respiratory Rate 19 Blood Pressure Pulse Oximetry 98 Intake & Output 09/20/18 09/21/18 09/21/18 18:59 06:59 18:59 Intake Total 2400 / 2400 3205 / 3205 100 / 100 Output Total 2200 / 2200 900 / 900 Balance 200 / 200 2305 / 2305 100 / 100 Weight 122.1 kg Intake: IV 1300 / 1300 1400 / 1400 100 / 100 NS Inj 1,000 ML @ 84 mls/hr IV. 1000 / 1000 1000 / 1000 CONT .[id number] BECKY Rx#:[id number] Unasyn Inj 3 GM In NS Inj 100 200 / 200 200 / 200 100 / 100 ML @ 200 mls/hr IV.SIG Q6H BECKY Rx#:[id number] INVanz Inj 1,000 MG In NS Inj 100 / 100 100 ML @ 200 mls/hr IV.SIG Q24H BECKY Rx#:[id number] Diflucan 400 mg Premix Bag 200 200 / 200 ML @ 100 mls/hr IV.SIG Q24H BECKY Rx#:[id number] Oral 1100 / 1100 480 / 480 Other 1325 / 1325 Output: Urine 2200 / 2200 900 / 900 Other: Other Intake Source Saline Solution Date of Last Bowel Movement 09/20/18 # Bowel Movements 3 Narrative: GENERAL: Very pleasant 68-year-old female,, morbidly obese, in no acute distress. SKIN: Focal skin exam edema and erythema, around PEG tube site. Some indurated areas around the former PEG tube however no fluctuation. NECK: Trach in place,capped. CARDIOVASCULAR: Regular rate and rhythm without murmurs, gallops, or rubs. RESPIRATORY: Distant breath sounds. No accessory muscle use. GASTROINTESTINAL: Abdomen soft, obese non-tender, nondistended. Previous PEG tube site improving erythema and edema. Some indurated areas around the former PEG tube however no fluctuation. Still with purulent drainage. MUSCULOSKELETAL: No cyanosis, or edema. BACK: Nontender without obvious deformity. No CVA tenderness. - Urinary Catheter Management Straight Cath placed during this visit: no Results - Labs CBC & Chem 7: 09/21/18 09:23 09/21/18 09:23 Laboratory Results - last 24 hr 09/20/18 09/20/18 09/20/18 13:19 17:37 21:20 WBC RBC Hgb Hct MCV MCH MCHC RDW Plt Count MPV Prelim Diff (Auto) Neut % (Auto) Lymph % (Auto) [place] % (Auto) Eos % (Auto) Baso % (Auto) Neut # (Auto) Lymph # (Auto) [place] # (Auto) Eos # (Auto) Baso # (Auto) WBC Differential Seg Neuts % (Manual) Band Neuts % (Manual) Lymphocytes % (Manual) Monocytes % (Manual) Eosinophils % (Manual) Myelocytes % (Man) Promyelocytes % (Man) Abs Neuts (Manual) Differential Comment Platelet Estimate Platelet Morphology Spherocytes Tear Drop Cells Ovalocytes PT INR Sodium Potassium Chloride Carbon Dioxide Anion Gap BUN Creatinine Estimated GFR POC Glucose 275 H 254 H 101 Random Glucose Calcium Total Bilirubin AST ALT Alkaline Phosphatase Total Protein Albumin 09/20/18 09/21/18 09/21/18 21:20 09:23 09:23 WBC 8.7 RBC 3.98 L Hgb 12.1 Hct 37.0 MCV 93.0 MCH 30.3 MCHC 32.6 RDW 17.4 H Plt Count 238 MPV 6.7 L Prelim Diff (Auto) Slide review pending Neut % (Auto) 69.0 Lymph % (Auto) 21.2 [place] % (Auto) 5.9 Eos % (Auto) 2.6 Baso % (Auto) 1.3 Neut # (Auto) 6.0 Lymph # (Auto) 1.8 [place] # (Auto) 0.5 Eos # (Auto) 0.2 Baso # (Auto) 0.1 WBC Differential Manual diff final Seg Neuts % (Manual) 71 H Band Neuts % (Manual) 2 Lymphocytes % (Manual) 17 Monocytes % (Manual) 2 Eosinophils % (Manual) 5 H Myelocytes % (Man) 2 H Promyelocytes % (Man) 1 H Abs Neuts (Manual) 6.6 Differential Comment . Platelet Estimate Normal Platelet Morphology Normal Spherocytes Occ H Tear Drop Cells 1+ H Ovalocytes 1+ H PT 17.4 H INR 1.7 Sodium Potassium Chloride Carbon Dioxide Anion Gap BUN Creatinine Estimated GFR POC Glucose 265 H Random Glucose Calcium Total Bilirubin AST ALT Alkaline Phosphatase Total Protein Albumin 09/21/18 09/21/18 09/21/18 09:23 09:26 11:57 WBC RBC Hgb Hct MCV MCH MCHC RDW Plt Count MPV Prelim Diff (Auto) Neut % (Auto) Lymph % (Auto) [place] % (Auto) Eos % (Auto) Baso % (Auto) Neut # (Auto) Lymph # (Auto) [place] # (Auto) Eos # (Auto) Baso # (Auto) WBC Differential Seg Neuts % (Manual) Band Neuts % (Manual) Lymphocytes % (Manual) Monocytes % (Manual) Eosinophils % (Manual) Myelocytes % (Man) Promyelocytes % (Man) Abs Neuts (Manual) Differential Comment Platelet Estimate Platelet Morphology Spherocytes Tear Drop Cells Ovalocytes PT INR Sodium 142 Potassium 3.8 Chloride 99 Carbon Dioxide 34.9 H Anion Gap 8 BUN 15 Creatinine 0.75 Estimated GFR 77 L POC Glucose 158 H 252 H Random Glucose 124 H Calcium 8.3 L Total Bilirubin 0.3 AST 16 ALT 34 Alkaline Phosphatase 64 Total Protein 6.4 D Albumin 2.5 L Microbiology 09/20/18 09:30 Abscess - Abdominal Gram Stain - Final - Imaging Impressions Abdomen/Pelvis CT 09/20/18 00:00 CONCLUSION: 1. No significant inflammation and induration around the patient's G-tube tract with a number of small soft tissue nodules medial to the tract could be additional areas of infection. There is no large drainable abscess just diffuse induration and small collections of soft tissue presumed infection. 2. Large fatty abdominal wall hernia in the left anterior abdomen. 3. Gallstones in a noninflamed gallbladder 4. Low-density but lobulated pelvic mass on the right. Need to rule out ovarian malignancy. Outpatient pelvic MRI is recommended - Procedures PEG tube removed. Assessment and Plan - Assessment (1) Tachycardia Code(s): R00.0 - Tachycardia, unspecified Status: Acute (2) Acute UTI (urinary tract infection) Code(s): N39.0 - Urinary tract infection, site not specified Status: Acute (3) Respiratory failure Code(s): J96.90 - Respiratory failure, unspecified, unspecified whether with hypoxia or hypercapnia Status: Acute (4) Complication of feeding tube Code(s): K94.23 - Gastrostomy malfunction Status: Acute - Plan This is a pleasant 68 y/o Female with Depression, DM II, Hypertension, Hyperlipidemia, Morbid Obesity recently Hospitalized May 2018, UTI/Sepsis, she was discharged on tracheostomy and PEG tube. She returned to the emergency room on 09/13/18 with erythema and swelling around her PEG site and a partially displaced PEG tube. PEG tube displaced, status post PEG tube removal in ED on 09/13, GI specialist following, NPO status post Swallow test and cleared for clear liquid diet. eating well. - DIET HAS BEEN ADVANCED PER SPEECH A. fib/tachycardia -continue Warfarin, Pharmacy following, Heart rate controlled with digoxin. INR 3.9 on hold Warfarin today Sepsis on admission/ Peritoneal infection/PEG site infection, Enterococcus Faecium and Faecalis. Grecia albicans. ESBL urine. Infectious disease is following, appreciate recommendations IV Cubicin stopped 09/19 per ID Continue IV Unasyn to gave better Enterococcal coverage Changed Zosyn to Invanz - to cover ESBL+. Repeat UA and C/S Plan to repeat CT A/P 09/20/18 GI re- evaluated patient since area with significant drainage of pus from previous PEG tube site. Continue Diflucan Previous CT abdomen pelvis did not indicate abscess, however repeat CT A/P with nodular lesions poss beginning of abscess. Gen surgery consult for further eval Sepsis on admission with leukocytosis, tachycardia, tachypnea, temperature of 100.9. Site of infection, PEG tube site cellulitis. Also with UTI ESBL. Patient with Bacteremia with Enterococcus. Wound cultures from PEG site pending. ID specialist following, Abx as above per ID recommendations. Follow cultures and sensitivity. Follow up repeat blood cultures NTD however with UTI ESBL abx changes as above. Respiratory failure with trach (placed 06/15/18) -Continue bronchodilator, Mucolytic and incentive spirometry. capped by Respiratory therapy. Consult pulm for trach evaluation. Spoke with Dr Marisela washington. + ESBL UTI -Patient previously admitted for sepsis/UTI -UA with culture Klebsiella Pneumonia and Grecia albicans. Now with ESBL + change zosyn to Invanz Hypertension probably secondary to IV fluids given. DVT prophylaxis: On warfarin, therapeutic INR 2.8 DIARRHEA START LACTINEX, C diff negative. LOMOTIL -PRN decreased IV fluids to 84 ml per hour and remove if continue eating well. Code Status: Full code. Discussed Condition With: Patient , nurse, Dr Marisela washington Discharge Planning: DC when improves and cleared by consultants ID Dr Duarte is ff Pulm Dr Antonio for trach management is also ff, poss trach removal in 2-3 days depending of clinical improvement GI for PEG tube ( infected, and also poss fistula ? .Reeval with CT A/P as still with significant drainage of pus from previous PEG tube site. Repeat CT scan shows new nodular abscess possibly beginning abscess and still running fevers, gen surgery consulter for further evaluation
[2018-09-21] MEDS ORDERED: Lidocaine 1%/Epinephrine 1:100,000 Inj 20 ML Vial INFILTRATN ONE (14:28)
[2018-09-21] MEDS ORDERED: Lidocaine 1% Inj 50 ML Vial ONE (14:29)
--- NOTE | 2018-09-21 14:34 | P.CONGS ---
[facility] Gen Surgery Consult Note Consult date: 09/21/18 Narrative: 68 yo F recently discharged from [facility] who has tracheostomy in place was noted to have displaced PEG tube with some fluid collections in the abdominal wall. She has had intermittent fevers despite IV antibiotics. PEG tube was removed and she is now tolerating oral diet well. She denies pain at the site. WBC is normal. Review of Systems All other systems reviewed negative except as stated in HPI PMFSH - History History Provided By: Patient, Family Member, Medical Record - Medical History Medical History: Medical History (Last Reviewed 09/21/18 @ 09:18 by Manjula Bruno) MDRO (multiple drug resistant organisms) resistance Onset Date: ~09/13/18 Depression Diabetes Hypertension Hypertriglyceridemia Morbid obesity - Surgical History Surgical History: Surgical History (Last Reviewed 09/21/18 @ 09:18 by Manjula Bruno) Hx of tubal ligation - Family History Family History: Family History (Last Reviewed 09/21/18 @ 09:18 by Manjula Bruno) Grandparent Colon cancer - Tobacco History Second Hand Smoke Exposure: No Tobacco Use In Past 30 Days: No Smoking Status: Former smoker Tobacco Type: Cigarettes Packs Per Day: 2 Years Smoked: 40 - Alcohol History How Often Do You Have a Drink Containing Alcohol: Never - Substance Use History Substance History: No History of Abuse - Travel History Recent Travel in the [place] Within the Last 8 Weeks: No Recent Travel Out of the Country Within the Last 8 Weeks: No - Immunization History Tetanus Immunization: Unsure Medications and Allergies Active Medications: Active Medications Acetaminophen (Tylenol) 650 mg PO Q4H PRN PRN Reason: Temp > 100.4 Last Admin: 09/20/18 21:31 Dose: 650 mg Albuterol (Duoneb Neb (Prn)) 1 ampul INH Q4HR NEB PRN PRN Reason: SHORTNESS OF BREATH Last Admin: 09/18/18 17:18 Dose: 1 ampul Albuterol (Duoneb Neb (Casie)) 1 ampul NEB Q6HR WHILE AWAKE NEB CASIE Last Admin: 09/21/18 08:20 Dose: 1 ampul Budesonide/Formoterol Fumarate (Symbicort 160/4.5 Mcg Inh) 2 puff INH BID CASIE Last Admin: 09/21/18 09:41 Dose: 2 puff Citalopram Hydrobromide (Celexa) 40 mg PO DAILY CASIE Last Admin: 09/21/18 09:40 Dose: 40 mg Dextrose (D50w Vial) 50 ml IV.PUSH UNSCH PRN PRN Reason: PER HYPOGLYCEMIA PROTOCOL Digoxin (Lanoxin) 125 mcg PO DAILY [facility] Last Admin: 09/21/18 09:40 Dose: 125 mcg Diltiazem HCl (Cardizem Inj) 5 mg IV.PUSH UNSCH PRN PRN Reason: SEE LABEL COMMENTS Last Admin: 09/14/18 02:34 Dose: 5 mg Diphenoxylate HCl/Atropine (Lomotil) 1 tab PO Q6H PRN PRN Reason: DIARRHEA Last Admin: 09/19/18 16:09 Dose: 1 tab Glucagon (Glucagon Inj) 1 mg OTHER PRN PRN PRN Reason: for Hypoglycemia Protocol Hyoscyamine (Levsin) 0.125 mg PO Q3H PRN PRN Reason: SECRETIONS Last Admin: 09/19/18 10:24 Dose: 0.125 mg Sodium Chloride (Ns Inj) 1,000 mls @ 84 mls/hr IV.CONT .[id number] CAISE Last Admin: 09/21/18 03:14 Dose: 84 mls/hr Fluconazole (Diflucan 400 Mg Premix Bag) 200 mls @ 100 mls/hr IV.SIG Q24H CASIE Last Infusion: 09/20/18 23:40 Dose: Infused Ampicillin Sodium/Sulbactam (Sodium 3 gm/ Sodium Chloride) 100 mls @ 200 mls/ hr IV.SIG Q6H CASIE Last Admin: 09/21/18 13:42 Dose: 200 mls/hr Ertapenem 1,000 mg/ Sodium (Chloride) 100 mls @ 200 mls/hr IV.SIG Q24H CASIE Last Infusion: 09/20/18 16:30 Dose: Infused Insulin Aspart (Novolog Insulin Correctional Sugar Inj) 0 unit SQ ACHS CASIE; Protocol Last Admin: 09/21/18 12:27 Dose: 5 unit Lactobacillus Acidophilus (Lactinex) 1 tab PO TID CASIE Last Admin: 09/21/18 12:27 Dose: 1 tab Lorazepam (Ativan) 1 mg PO Q6HR PRN PRN Reason: Anxiety Last Admin: 09/20/18 21:31 Dose: 1 mg Morphine Sulfate (Roxanol Liq) 5 mg SL Q3HR PRN PRN Reason: PAIN SCALE 6 TO 10 Last Admin: 09/17/18 09:49 Dose: 5 mg Pharmacy Profile Note (Coumadin Consult Pharmacy) 1 each OTHER UNSCH PRN PRN Reason: PHARMACY DOCUMENTATION Prednisone (Deltasone) 20 mg PO DAILY [facility] Last Admin: 09/21/18 09:40 Dose: 20 mg Sennosides (Senokot) 17.2 mg PO Q12H PRN PRN Reason: Moderate Constipation Sodium Chloride (Ns Flush) 2 ml IV.FLUSH BID [facility] Last Admin: 09/21/18 09:41 Dose: 2 ml Sodium Chloride (Ns Flush) 2 ml IV.FLUSH PRN PRN PRN Reason: FLUSH AFTER USING IV ACCESS Warfarin Sodium (Coumadin) 3 mg PO DAILY@1600 [facility] Last Admin: 09/20/18 16:02 Dose: 3 mg Allergies Allergy/AdvReac Type Severity Reaction Status Date / Time No Known Allergies Allergy Verified 05/30/18 22:08 Home Medications Medication Instructions Recorded Confirmed Type citalopram [Celexa] 40 mg PO DAILY 09/13/18 09/13/18 History famotidine [Pepcid] 20 mg PO BID 09/13/18 09/13/18 History glipizide 5 mg PO BID 09/13/18 09/13/18 History hydrocodone-acetaminophen [Hycet] 10 ml PO Q4HR 09/13/18 09/13/18 History hyoscyamine sulfate [Levsin/SL] 0.125 mg SUBLINGUAL Q3HR PRN 09/13/18 09/13/18 History ipratropium-albuterol 3 ml INHALATION Q4HR PRN 09/13/18 09/13/18 History lorazepam 1 mg PO Q6HR PRN 09/13/18 09/13/18 History metformin 1,000 mg PO BID 09/13/18 09/13/18 History morphine concentrate 5 mg SUBLINGUAL Q3HR PRN 09/13/18 09/13/18 History prednisone 20 mg PO DAILY 09/13/18 09/13/18 History warfarin [Jantoven] 6 mg PO DAILY 09/13/18 09/13/18 History Exam Vital signs: Vital Signs 09/20/18 16:00 09/20/18 20:00 09/20/18 22:23 Temperature 100.4 F H 98.8 F Pulse Rate 80 106 H 75 Respiratory Rate 24 20 17 Blood Pressure 132/78 145/93 H Pulse Oximetry 96 99 09/21/18 00:00 09/21/18 04:00 09/21/18 08:00 Temperature 98.5 F 98.8 F 98.6 F Pulse Rate 75 78 Respiratory Rate 20 18 Blood Pressure 127/71 129/81 130/68 Pulse Oximetry 94 L 98 09/21/18 08:22 09/21/18 12:00 Temperature 97.8 F Pulse Rate 79 100 H Respiratory Rate 19 20 Blood Pressure 155/84 H Pulse Oximetry 98 94 L Intake & Output 09/20/18 09/21/18 09/21/18 18:59 06:59 18:59 Intake Total 2400 / 2400 3205 / 3205 100 / 100 Output Total 2200 / 2200 900 / 900 Balance 200 / 200 2305 / 2305 100 / 100 Weight 122.1 kg Intake: IV 1300 / 1300 1400 / 1400 100 / 100 NS Inj 1,000 ML @ 84 mls/hr IV. 1000 / 1000 1000 / 1000 CONT .[id number] CASIE Rx#:[id number] Unasyn Inj 3 GM In NS Inj 100 200 / 200 200 / 200 100 / 100 ML @ 200 mls/hr IV.SIG Q6H CASIE Rx#:[id number] INVanz Inj 1,000 MG In NS Inj 100 / 100 100 ML @ 200 mls/hr IV.SIG Q24H CASIE Rx#:[id number] Diflucan 400 mg Premix Bag 200 200 / 200 ML @ 100 mls/hr IV.SIG Q24H CASIE Rx#:[id number] Oral 1100 / 1100 480 / 480 Other 1325 / 1325 Output: Urine 2200 / 2200 900 / 900 Other: Other Intake Source Saline Solution Date of Last Bowel Movement 09/20/18 # Bowel Movements 3 Narrative: GENERAL: Awake and alert. No acute distress. Cooperative. Obese. Trach in place and capped. HEAD: Normocephalic. Atraumatic. EYES: Pupils equal round and reactive to light bilaterally. No scleral icterus. ENT: Moist oral mucosa. NECK: Trachea midline. CHEST: No respiratory distress. CARDIOVASCULAR: skin warm and dry ABDOMEN: Large nonreducible umbilical hernia. Left upper abdomen 1 cm opening with copious purulent drainage. No erythema. Results - Labs 09/21/18 09:23 09/21/18 09:23 Laboratory Results - last 24 hr 09/20/18 09/20/18 09/20/18 17:37 21:20 21:20 WBC RBC Hgb Hct MCV MCH MCHC RDW Plt Count MPV Prelim Diff (Auto) Neut % (Auto) Lymph % (Auto) Ogle % (Auto) Eos % (Auto) Baso % (Auto) Neut # (Auto) Lymph # (Auto) Ogle # (Auto) Eos # (Auto) Baso # (Auto) WBC Differential Seg Neuts % (Manual) Band Neuts % (Manual) Lymphocytes % (Manual) Monocytes % (Manual) Eosinophils % (Manual) Myelocytes % (Man) Promyelocytes % (Man) Abs Neuts (Manual) Differential Comment Platelet Estimate Platelet Morphology Spherocytes Tear Drop Cells Ovalocytes PT INR Sodium Potassium Chloride Carbon Dioxide Anion Gap BUN Creatinine Estimated GFR POC Glucose 254 H 101 265 H Random Glucose Calcium Total Bilirubin AST ALT Alkaline Phosphatase Total Protein Albumin 09/21/18 09/21/18 09/21/18 09:23 09:23 09:23 WBC 8.7 RBC 3.98 L Hgb 12.1 Hct 37.0 MCV 93.0 MCH 30.3 MCHC 32.6 RDW 17.4 H Plt Count 238 MPV 6.7 L Prelim Diff (Auto) Slide review pending Neut % (Auto) 69.0 Lymph % (Auto) 21.2 Ogle % (Auto) 5.9 Eos % (Auto) 2.6 Baso % (Auto) 1.3 Neut # (Auto) 6.0 Lymph # (Auto) 1.8 Ogle # (Auto) 0.5 Eos # (Auto) 0.2 Baso # (Auto) 0.1 WBC Differential Manual diff final Seg Neuts % (Manual) 71 H Band Neuts % (Manual) 2 Lymphocytes % (Manual) 17 Monocytes % (Manual) 2 Eosinophils % (Manual) 5 H Myelocytes % (Man) 2 H Promyelocytes % (Man) 1 H Abs Neuts (Manual) 6.6 Differential Comment . Platelet Estimate Normal Platelet Morphology Normal Spherocytes Occ H Tear Drop Cells 1+ H Ovalocytes 1+ H PT 17.4 H INR 1.7 Sodium 142 Potassium 3.8 Chloride 99 Carbon Dioxide 34.9 H Anion Gap 8 BUN 15 Creatinine 0.75 Estimated GFR 77 L POC Glucose Random Glucose 124 H Calcium 8.3 L Total Bilirubin 0.3 AST 16 ALT 34 Alkaline Phosphatase 64 Total Protein 6.4 D Albumin 2.5 L 09/21/18 09/21/18 09:26 11:57 WBC RBC Hgb Hct MCV MCH MCHC RDW Plt Count MPV Prelim Diff (Auto) Neut % (Auto) Lymph % (Auto) Ogle % (Auto) Eos % (Auto) Baso % (Auto) Neut # (Auto) Lymph # (Auto) Ogle # (Auto) Eos # (Auto) Baso # (Auto) WBC Differential Seg Neuts % (Manual) Band Neuts % (Manual) Lymphocytes % (Manual) Monocytes % (Manual) Eosinophils % (Manual) Myelocytes % (Man) Promyelocytes % (Man) Abs Neuts (Manual) Differential Comment Platelet Estimate Platelet Morphology Spherocytes Tear Drop Cells Ovalocytes PT INR Sodium Potassium Chloride Carbon Dioxide Anion Gap BUN Creatinine Estimated GFR POC Glucose 158 H 252 H Random Glucose Calcium Total Bilirubin AST ALT Alkaline Phosphatase Total Protein Albumin - Imaging Imaging: ITS Impressions Chest X-Ray 09/13/18 12:51 CONCLUSION: Resolution of previously seen pulmonary edema. Videofluoroscopic Swallow 09/14/18 00:00 CONCLUSION: No evidence of penetration or aspiration. See full report by the speech pathologist. Abdomen/Pelvis CT 09/20/18 00:00 CONCLUSION: 1. No significant inflammation and induration around the patient's G-tube tract with a number of small soft tissue nodules medial to the tract could be additional areas of infection. There is no large drainable abscess just diffuse induration and small collections of soft tissue presumed infection. 2. Large fatty abdominal wall hernia in the left anterior abdomen. 3. Gallstones in a noninflamed gallbladder 4. Low-density but lobulated pelvic mass on the right. Need to rule out ovarian malignancy. Outpatient pelvic MRI is recommended Assessment and Plan - Assessment (1) Abdominal wall abscess at site of surgical wound Code(s): T81.49XA - Infection following a procedure, other surgical site, initial encounter Status: Acute - Plan PEG site abscess with copious purulent drainage. Will perform I&D at bedside tomorrow. Discussed in detail with the patient and she desires to proceed.
--- NOTE | 2018-09-21 18:16 | P.PN ---
Subjective Interval history: She has no SOB with trach capped. On antibiotics for cellulitis of abdominal wall. On O2 at 2 L Physical Exam Vital signs: Vital Signs 09/20/18 20:00 09/20/18 22:23 09/21/18 00:00 Temperature 98.8 F 98.5 F Pulse Rate 106 H 75 75 Respiratory Rate 20 17 20 Blood Pressure 145/93 H 127/71 Pulse Oximetry 99 94 L 09/21/18 04:00 09/21/18 08:00 09/21/18 08:22 Temperature 98.8 F 98.6 F Pulse Rate 78 79 Respiratory Rate 18 19 Blood Pressure 129/81 130/68 Pulse Oximetry 98 98 09/21/18 12:00 09/21/18 14:51 09/21/18 16:00 Temperature 97.8 F 96.6 F L Pulse Rate 100 H 82 105 H Respiratory Rate 20 17 24 Blood Pressure 155/84 H 146/89 H Pulse Oximetry 94 L 94 L Intake & Output 09/20/18 09/21/18 09/21/18 18:59 06:59 18:59 Intake Total 2400 / 2400 3205 / 3205 2700 / 2700 Output Total 2200 / 2200 900 / 900 1500 / 1500 Balance 200 / 200 2305 / 2305 1200 / 1200 Weight 122.1 kg Intake: IV 1300 / 1300 1400 / 1400 1300 / 1300 NS Inj 1,000 ML @ 84 mls/hr IV. 1000 / 1000 1000 / 1000 1000 / 1000 CONT .[id number] BECKY Rx#:[id number] Unasyn Inj 3 GM In NS Inj 100 200 / 200 200 / 200 200 / 200 ML @ 200 mls/hr IV.SIG Q6H BECKY Rx#:[id number] INVanz Inj 1,000 MG In NS Inj 100 / 100 100 / 100 100 ML @ 200 mls/hr IV.SIG Q24H BECKY Rx#:[id number] Diflucan 400 mg Premix Bag 200 200 / 200 ML @ 100 mls/hr IV.SIG Q24H BECKY Rx#:[id number] Oral 1100 / 1100 480 / 480 1400 / 1400 Other 1325 / 1325 Output: Urine 2200 / 2200 900 / 900 1500 / 1500 Other: Other Intake Source Saline Solution Date of Last Bowel Movement 09/20/18 09/21/18 # Bowel Movements 3 2 Narrative: GENERAL: Awake and alert. No acute distress. Cooperative. Obese W/F . Trach in place and capped. HEAD: Normocephalic. Atraumatic. EYES: Pupils equal round and reactive to light bilaterally. No scleral icterus. ENT: Moist oral mucosa. NECK: Trachea midline. CHEST: Few wheezes scattered. CARDIOVASCULAR: skin warm and dry ABDOMEN: Large nonreducible umbilical hernia. Left upper abdomen 1 cm opening with copious purulent drainage. - Urinary Catheter Management Straight Cath placed during this visit: no Results - Labs CBC & Chem 7: 09/21/18 09:23 09/21/18 09:23 Laboratory Results - last 24 hr 09/20/18 09/20/18 09/21/18 21:20 21:20 09:23 WBC RBC Hgb Hct MCV MCH MCHC RDW Plt Count MPV Prelim Diff (Auto) Neut % (Auto) Lymph % (Auto) Angelina % (Auto) Eos % (Auto) Baso % (Auto) Neut # (Auto) Lymph # (Auto) Angelina # (Auto) Eos # (Auto) Baso # (Auto) WBC Differential Seg Neuts % (Manual) Band Neuts % (Manual) Lymphocytes % (Manual) Monocytes % (Manual) Eosinophils % (Manual) Myelocytes % (Man) Promyelocytes % (Man) Abs Neuts (Manual) Differential Comment Platelet Estimate Platelet Morphology Spherocytes Tear Drop Cells Ovalocytes PT 17.4 H INR 1.7 Sodium Potassium Chloride Carbon Dioxide Anion Gap BUN Creatinine Estimated GFR POC Glucose 101 265 H Random Glucose Calcium Total Bilirubin AST ALT Alkaline Phosphatase Total Protein Albumin 09/21/18 09/21/18 09/21/18 09:23 09:23 09:26 WBC 8.7 RBC 3.98 L Hgb 12.1 Hct 37.0 MCV 93.0 MCH 30.3 MCHC 32.6 RDW 17.4 H Plt Count 238 MPV 6.7 L Prelim Diff (Auto) Slide review pending Neut % (Auto) 69.0 Lymph % (Auto) 21.2 Angelina % (Auto) 5.9 Eos % (Auto) 2.6 Baso % (Auto) 1.3 Neut # (Auto) 6.0 Lymph # (Auto) 1.8 Angelina # (Auto) 0.5 Eos # (Auto) 0.2 Baso # (Auto) 0.1 WBC Differential Manual diff final Seg Neuts % (Manual) 71 H Band Neuts % (Manual) 2 Lymphocytes % (Manual) 17 Monocytes % (Manual) 2 Eosinophils % (Manual) 5 H Myelocytes % (Man) 2 H Promyelocytes % (Man) 1 H Abs Neuts (Manual) 6.6 Differential Comment . Platelet Estimate Normal Platelet Morphology Normal Spherocytes Occ H Tear Drop Cells 1+ H Ovalocytes 1+ H PT INR Sodium 142 Potassium 3.8 Chloride 99 Carbon Dioxide 34.9 H Anion Gap 8 BUN 15 Creatinine 0.75 Estimated GFR 77 L POC Glucose 158 H Random Glucose 124 H Calcium 8.3 L Total Bilirubin 0.3 AST 16 ALT 34 Alkaline Phosphatase 64 Total Protein 6.4 D Albumin 2.5 L 09/21/18 09/21/18 11:57 16:23 WBC RBC Hgb Hct MCV MCH MCHC RDW Plt Count MPV Prelim Diff (Auto) Neut % (Auto) Lymph % (Auto) Angelina % (Auto) Eos % (Auto) Baso % (Auto) Neut # (Auto) Lymph # (Auto) Angelina # (Auto) Eos # (Auto) Baso # (Auto) WBC Differential Seg Neuts % (Manual) Band Neuts % (Manual) Lymphocytes % (Manual) Monocytes % (Manual) Eosinophils % (Manual) Myelocytes % (Man) Promyelocytes % (Man) Abs Neuts (Manual) Differential Comment Platelet Estimate Platelet Morphology Spherocytes Tear Drop Cells Ovalocytes PT INR Sodium Potassium Chloride Carbon Dioxide Anion Gap BUN Creatinine Estimated GFR POC Glucose 252 H 329 H Random Glucose Calcium Total Bilirubin AST ALT Alkaline Phosphatase Total Protein Albumin Microbiology 09/20/18 09:30 Abscess - Abdominal Gram Stain - Final 09/20/18 09:30 Abscess - Abdominal Wound Culture - Preliminary gram negative rods Grecia albicans Group D Enterococcus - Procedures PEG tube removed. Assessment and Plan - Assessment (1) Status post tracheostomy Code(s): Z93.0 - Tracheostomy status Status: Acute (2) Acute kidney injury Code(s): N17.9 - Acute kidney failure, unspecified Status: Acute (3) Acute UTI (urinary tract infection) Code(s): N39.0 - Urinary tract infection, site not specified Status: Acute (4) Hypoxia Code(s): R09.02 - Hypoxemia Status: Acute (5) SVT (supraventricular tachycardia) Code(s): I47.1 - Supraventricular tachycardia Status: Acute (6) Sepsis secondary to UTI Code(s): A41.9 - Sepsis, unspecified organism; N39.0 - Urinary tract infection, site not specified Status: Acute (7) Hypernatremia Code(s): E87.0 - Hyperosmolality and hypernatremia Status: Acute (8) Respiratory failure Code(s): J96.90 - Respiratory failure, unspecified, unspecified whether with hypoxia or hypercapnia Status: Acute - Plan 1. O2 2 L N/C 2. Leave trach capped. 3 Cont Antibiotics for Enterococcal sepsis. 4. IS q3h bedside 5. Cont Duoneb nebs qid. 6. Will D/C Trach in am if stable 7. CBC,CXR in am.
[2018-09-22] MEDS: Sod Chloride 0.9% Inj 1,000 ML IV.CONT SCH (04:59)
[2018-09-22] MEDS: Ampicillin/Sulbactam Inj 3 GM in Sodium Chloride 0.9% Inj 100 ML IV.SIG SCH ×4 (05:10→22:18)
[2018-09-22] MEDS: Insulin NovoLOG Aspart Correctional Sugar Inj SQ SCH ×4 (08:00→22:22)
[2018-09-22] MEDS: Digoxin 125 MCG Tablet PO SCH (09:00)
[2018-09-22] MEDS: LORazepam 1 MG Tablet PO PRN ×2 (09:00→16:15)
[2018-09-22] MEDS: Lactobacillus Acidophilus/L. Spores Tablet PO SCH ×3 (09:00→18:12)
[2018-09-22] MEDS: predniSONE 20 MG Tablet PO SCH (09:00)
[2018-09-22] MEDS: Budesonide-Formoterol 160/4.5 MCG 6 GM Inhaler INH SCH ×2 (09:00→22:19)
--- NOTE | 2018-09-22 09:13 | P.PCN ---
Date of procedure: 09/22/18 Pre-op diagnosis: Abdominal wall abscess at previous PEG site Post-op diagnosis: same Procedure: Procedure: Incision and drainage of abdominal wall abscess at previous PEG site. The area was sterilely prepped and draped. 1% lidocaine was infiltrated in the skin and subcutaneous tissue. Extending to the right from the present wound the incision was opened about 1-2 inches. Purulent fluid was drained. Loculations and the cavity were broken up bluntly. 4 x 4 packing was placed in dry dressing applied. The patient tolerated the procedure well and remained in her room. Anesthesia: local Surgeon: Luis Bahena Estimated blood loss (mL): 5 Pathology: none sent Condition: stable Disposition: floor
[2018-09-22 10:02] LABS: Baso # (Auto) 0.1 th/mm3 (0.0-0.2); Baso % (Auto) 0.5 % (0.0-2.0); Eos # (Auto) 0.2 th/mm3 (0.0-0.4); Eos % (Auto) 2.4 % (0.0-4.0); Hematocrit 37.8 % (35.0-46.0); Hemoglobin 12.1 gm/dL (11.6-15.3); Lymph # (Auto) 2.1 th/mm3 (1.0-4.8); Lymph % (Auto) 22.1 % (9.0-44.0); Mean Corpuscular HGB Conc 31.9 % (32.0-36.0); Mean Corpuscular Hemoglobin 29.8 pg (27.0-34.0); Mean Corpuscular Volume 93.5 fL (80.0-100.0); Mean Platelet Volume 6.9 fL (7.0-11.0); Mono # (Auto) 0.6 th/mm3 (0.0-0.9); Mono % (Auto) 6.1 % (0.0-8.0); Neut # (Auto) 6.6 th/mm3 (1.8-7.7); Neut % (Auto) 68.9 % (16.0-70.0); Platelet Count 245 th/mm3 (150-450); Red Blood Count 4.05 mil/mm3 (4.00-5.30); Red Cell Distribution Width 17.7 % (11.6-17.2); White Blood Count 9.6 th/mm3 (4.0-11.0)
[2018-09-22 10:07] LABS: INR 1.5 Ratio; Prothrombin Time 15.2 sec (9.8-11.6)
[2018-09-22 10:20] LABS: Albumin 2.5 g/dL (3.4-5.0); Anion Gap 5 meq/L (5-15); Aspartate Aminotransferase 13 U/L (15-37); Blood Urea Nitrogen 17 mg/dL (7-18); Calcium 8.4 mg/dL (8.5-10.1); Carbon Dioxide 35.7 meq/L (21.0-32.0); Chloride 101 meq/L (98-107); Glomerular Filtration Rate 81 mL/min (>89); Glucose,Random 146 mg/dL (74-106); Potassium 3.7 meq/L (3.5-5.1); Sodium 142 meq/L (136-145)
[2018-09-22 10:26] LABS: Alanine Aminotransferase 32 U/L (10-53); Alkaline Phosphatase 63 U/L (45-117); Total Protein 6.5 g/dL (6.4-8.2)
[2018-09-22 11:04] LABS: Ovalocytes 1+; Platelet Estimate Normal (Normal); Platelet Morphology Normal (Normal)
[2018-09-22] MEDS ORDERED: Metoprolol Tartrate 25 MG Tablet PO ONE (12:02)
--- NOTE | 2018-09-22 12:08 | P.PNID ---
Subjective Remarks: Patient is a 68-year-old female, brought into the hospital for evaluation of her PEG tube. Patient was hospitalized here back in May and at that time she was treated for sepsis. She had a UTI, and also had what looks like an infection on 1 of her toes on the right foot. She ended up on the respirator, and has required continued ventilatory support, requiring tracheostomy. She also had a PEG tube placed at that time. She was discharged to [facility] towards the end of May, and apparently she was discharged around the second week in August and has been at home. Patient gets tube feedings 24 hours a day, and she still is able to eat some. She has a Passy- David valve on her trach. She stays mostly in bed, and sometimes dangles at the side of the bed, and she could stand up but does not really do any ambulation. Recently apparently she has been having problem with leaking around the PEG tube. She was also noted to have some swelling around the PEG tube site. She presented to the hospital, and she had a fever of 100.9. Her white count is elevated at 14,000. She had a CT of the abdomen and pelvis which did not show any evidence of intra-abdominal abscess, but it shows that the PEG is almost out with some debris along the PEG tube tract and some into the peritoneal cavity. The PEG was removed in the ED. She had a swallowing eval with no evidence of aspiration. Patient currently is on a T-piece. She denies any shortness of breath. Her abdominal pain is better. She is awake and alert. Her temperatures are better. BP is stable and she is not on any pressor support. 2 blood cultures were done in the ED and one blood culture is currently going growing enterococcus. Her chest x-ray is normal. Infectious disease consultation has been requested to evaluate the patient with positive blood culture. Notes reviewed Low grade temps D/W RN Had bedside debridement by surgery Appreciate Dr Bahena's help WBC normal Repeat wound C/S GNR, Enterococcus and Grecia albican Tolerating capped trach Still draining a lot from previous PEG site Antibiotics: Invanz Unasyn Diflucan Lines: PIV Past Medical History: MDRO (multiple drug resistant organisms) resistance Onset Date: ~09/13/18 Depression Diabetes Hypertension Hypertriglyceridemia Morbid obesity Tubal ligation PEG placement Tracheostomy Allergies/Adverse Reactions: Allergies No Known Allergies Allergy (Verified 05/30/18 22:08) Objective Vital Signs 09/21/18 14:51 09/21/18 16:00 09/21/18 20:00 Temperature 96.6 F L 97 F L Pulse Rate 82 105 H 101 H Respiratory Rate 17 24 24 Blood Pressure 146/89 H 166/97 H Pulse Oximetry 94 L 98 09/21/18 20:32 09/22/18 00:00 09/22/18 04:00 Temperature 96.5 F L 97.2 F L Pulse Rate 100 H 90 94 H Respiratory Rate 20 24 22 Blood Pressure 133/77 142/78 H Pulse Oximetry 99 97 96 09/22/18 08:00 09/22/18 08:08 09/22/18 08:40 Temperature 97.4 F L Pulse Rate 115 H 94 H Respiratory Rate 24 Blood Pressure 148/82 H Pulse Oximetry 95 95 Intake & Output 09/21/18 09/22/18 09/22/18 18:59 06:59 18:59 Intake Total 2700 / 2700 2672 / 2672 100 / 100 Output Total 1500 / 1500 1450 / 1450 Balance 1200 / 1200 1222 / 1222 100 / 100 Weight 120.9 kg Intake: IV 1300 / 1300 1400 / 1400 100 / 100 NS Inj 1,000 ML @ 84 mls/hr IV. 1000 / 1000 1000 / 1000 CONT .[id number] BECKY Rx#:[id number] Unasyn Inj 3 GM In NS Inj 100 200 / 200 200 / 200 100 / 100 ML @ 200 mls/hr IV.SIG Q6H BECKY Rx#:[id number] INVanz Inj 1,000 MG In NS Inj 100 / 100 100 ML @ 200 mls/hr IV.SIG Q24H BECKY Rx#:[id number] Diflucan 400 mg Premix Bag 200 200 / 200 ML @ 100 mls/hr IV.SIG Q24H BECKY Rx#:[id number] Oral 1400 / 1400 200 / 200 Other 1072 / 1072 Output: Urine 1500 / 1500 1450 / 1450 Other: Date of Last Bowel Movement 09/21/18 # Bowel Movements 2 09/20/18 09:30 Abscess - Abdominal Gram Stain - Final 09/20/18 09:30 Abscess - Abdominal Wound Culture - Preliminary gram negative rods Grecia albicans Group D Enterococcus 09/14/18 19:14 Blood - Peripheral Aerobic Blood Culture - Final No growth in 5 days 09/14/18 19:14 Blood - Peripheral Anaerobic Blood Culture - Final No growth in 5 days 09/14/18 19:09 Blood - Peripheral Aerobic Blood Culture - Final No growth in 5 days 09/14/18 19:09 Blood - Peripheral Anaerobic Blood Culture - Final No growth in 5 days Lab - Hematology Results 09/21/18 09/22/18 09:23 07:56 WBC 8.7 9.6 RBC 3.98 L 4.05 Hgb 12.1 12.1 Hct 37.0 37.8 MCV 93.0 93.5 MCH 30.3 29.8 MCHC 32.6 31.9 L RDW 17.4 H 17.7 H Plt Count 238 245 MPV 6.7 L 6.9 L Prelim Diff (Auto) Slide review pending Slide review pending Neut % (Auto) 69.0 68.9 Lymph % (Auto) 21.2 22.1 [place] % (Auto) 5.9 6.1 Eos % (Auto) 2.6 2.4 Baso % (Auto) 1.3 0.5 Neut # (Auto) 6.0 6.6 Lymph # (Auto) 1.8 2.1 [place] # (Auto) 0.5 0.6 Eos # (Auto) 0.2 0.2 Baso # (Auto) 0.1 0.1 WBC Differential Manual diff final . Diff Scan Auto diff confirmed Seg Neuts % (Manual) 71 H Band Neuts % (Manual) 2 Lymphocytes % (Manual) 17 Monocytes % (Manual) 2 Eosinophils % (Manual) 5 H Myelocytes % (Man) 2 H Promyelocytes % (Man) 1 H Abs Neuts (Manual) 6.6 Differential Comment . . Platelet Estimate Normal Normal Platelet Morphology Normal Normal Spherocytes Occ H Tear Drop Cells 1+ H Ovalocytes 1+ H 1+ H Lab - Chemistry Results 09/20/18 09/20/18 09/20/18 13:19 17:37 21:20 Sodium Potassium Chloride Carbon Dioxide Anion Gap BUN Creatinine Estimated GFR POC Glucose 275 H 254 H 101 Random Glucose Calcium Total Bilirubin AST ALT Alkaline Phosphatase Total Protein Albumin 09/20/18 09/21/18 09/21/18 21:20 09:23 09:26 Sodium 142 Potassium 3.8 Chloride 99 Carbon Dioxide 34.9 H Anion Gap 8 BUN 15 Creatinine 0.75 Estimated GFR 77 L POC Glucose 265 H 158 H Random Glucose 124 H Calcium 8.3 L Total Bilirubin 0.3 AST 16 ALT 34 Alkaline Phosphatase 64 Total Protein 6.4 D Albumin 2.5 L 09/21/18 09/21/18 09/22/18 11:57 16:23 07:53 Sodium 142 Potassium 3.7 Chloride 101 Carbon Dioxide 35.7 H Anion Gap 5 BUN 17 Creatinine 0.72 Estimated GFR 81 L POC Glucose 252 H 329 H Random Glucose 146 H Calcium 8.4 L Total Bilirubin 0.3 AST 13 L ALT 32 Alkaline Phosphatase 63 Total Protein 6.5 Albumin 2.5 L 09/22/18 07:55 Sodium Potassium Chloride Carbon Dioxide Anion Gap BUN Creatinine Estimated GFR POC Glucose 155 H Random Glucose Calcium Total Bilirubin AST ALT Alkaline Phosphatase Total Protein Albumin Imaging: ITS Impressions Chest X-Ray 09/13/18 12:51 CONCLUSION: Resolution of previously seen pulmonary edema. Videofluoroscopic Swallow 09/14/18 00:00 CONCLUSION: No evidence of penetration or aspiration. See full report by the speech pathologist. Abdomen/Pelvis CT 09/20/18 00:00 CONCLUSION: 1. No significant inflammation and induration around the patient's G-tube tract with a number of small soft tissue nodules medial to the tract could be additional areas of infection. There is no large drainable abscess just diffuse induration and small collections of soft tissue presumed infection. 2. Large fatty abdominal wall hernia in the left anterior abdomen. 3. Gallstones in a noninflamed gallbladder 4. Low-density but lobulated pelvic mass on the right. Need to rule out ovarian malignancy. Outpatient pelvic MRI is recommended Physical Exam: GENERAL: awake and alert, NAD, trach capped SKIN: Cool and dry. No generalized rash HEAD: Atraumatic. Normocephalic. No temporal wasting, or tenderness. EYES: [place] conjunctiva. No petechia or hemorrhage. No scleral icterus. No injection or drainage. EARS, NOSE AND THROAT: Mucous membranes pink and moist. No oral lesions noted. NECK: Tracheostomy site looks ok. Supple and not tender, no meningeal signs. Trach capped CARDIOVASCULAR: No murmurs, rubs or gallops heard RESPIRATORY: Coarse breath sounds sully, with scattered wheezing ABDOMEN: Soft, obese, previous PEG site now with 4 cm opening, has packing, has bloody drainage. Has reducible UH EXTREMITIES: No clubbing, cyanosis, or edema. No calf tenderness. NO evidence of infection in any of her toes NEUROLOGICAL: Non-focal PSYCHIATRIC: Normal affect, calm and cooperative. LINE: No evidence of infection Assessment and Plan - Plan Impression Bacteremia with Enterococcus, due to abdominal wall cellulitis from PEG malposition Abdominal wall cellulitis, abscess UTI Respiratory failure, S/P trach, has passey-david valve Hx possible osteo of toe R foot - currently no obvious evidence of infection Low grade temps Recommendation Continue IV Unasyn to gave better Enterococcal coverage Continue Invanz - cover ESBL+ Continue Diflucan Follow new C/S Follow temps Monitor progress D/W RN
--- NOTE | 2018-09-22 13:12 | P.PN ---
Subjective Interval history: She is having a rapid heart rate.120 to 130. Feels weak, and on N/C O2 3 L Physical Exam Vital signs: Vital Signs 09/21/18 14:51 09/21/18 16:00 09/21/18 20:00 Temperature 96.6 F L 97 F L Pulse Rate 82 105 H 101 H Respiratory Rate 17 24 24 Blood Pressure 146/89 H 166/97 H Pulse Oximetry 94 L 98 09/21/18 20:32 09/22/18 00:00 09/22/18 04:00 Temperature 96.5 F L 97.2 F L Pulse Rate 100 H 90 94 H Respiratory Rate 20 24 22 Blood Pressure 133/77 142/78 H Pulse Oximetry 99 97 96 09/22/18 08:00 09/22/18 08:08 09/22/18 08:40 Temperature 97.4 F L Pulse Rate 115 H 94 H Respiratory Rate 24 Blood Pressure 148/82 H Pulse Oximetry 95 95 09/22/18 12:40 Temperature Pulse Rate 100 H Respiratory Rate 20 Blood Pressure Pulse Oximetry Intake & Output 09/21/18 09/22/18 09/22/18 18:59 06:59 18:59 Intake Total 2700 / 2700 2672 / 2672 100 / 100 Output Total 1500 / 1500 1450 / 1450 Balance 1200 / 1200 1222 / 1222 100 / 100 Weight 120.9 kg Intake: IV 1300 / 1300 1400 / 1400 100 / 100 NS Inj 1,000 ML @ 84 mls/hr IV. 1000 / 1000 1000 / 1000 CONT .[id number] BECKY Rx#:[id number] Unasyn Inj 3 GM In NS Inj 100 200 / 200 200 / 200 100 / 100 ML @ 200 mls/hr IV.SIG Q6H BECKY Rx#:[id number] INVanz Inj 1,000 MG In NS Inj 100 / 100 100 ML @ 200 mls/hr IV.SIG Q24H BECKY Rx#:[id number] Diflucan 400 mg Premix Bag 200 200 / 200 ML @ 100 mls/hr IV.SIG Q24H BECKY Rx#:[id number] Oral 1400 / 1400 200 / 200 Other 1072 / 1072 Output: Urine 1500 / 1500 1450 / 1450 Other: Date of Last Bowel Movement 09/21/18 # Bowel Movements 2 Narrative: GENERAL: Awake and alert. Mild distress. Cooperative. Obese W/F . Trach in place and capped. HEAD: Normocephalic. Atraumatic. EYES: Pupils equal round and reactive to light bilaterally. No scleral icterus. ENT: Moist oral mucosa. NECK: Trachea midline. CHEST: Bilateral wheezes scattered. CARDIOVASCULAR: skin warm and dry ABDOMEN: Large nonreducible umbilical hernia. Left upper abdomen 1 cm opening with copious purulent drainage. - Urinary Catheter Management Straight Cath placed during this visit: no Results - Labs CBC & Chem 7: 09/22/18 07:56 09/22/18 07:53 Laboratory Results - last 24 hr 09/21/18 09/22/18 09/22/18 16:23 07:53 07:55 WBC RBC Hgb Hct MCV MCH MCHC RDW Plt Count MPV Prelim Diff (Auto) Neut % (Auto) Lymph % (Auto) [place] % (Auto) Eos % (Auto) Baso % (Auto) Neut # (Auto) Lymph # (Auto) [place] # (Auto) Eos # (Auto) Baso # (Auto) WBC Differential Diff Scan Differential Comment Platelet Estimate Platelet Morphology Ovalocytes PT INR Sodium 142 Potassium 3.7 Chloride 101 Carbon Dioxide 35.7 H Anion Gap 5 BUN 17 Creatinine 0.72 Estimated GFR 81 L POC Glucose 329 H 155 H Random Glucose 146 H Calcium 8.4 L Total Bilirubin 0.3 AST 13 L ALT 32 Alkaline Phosphatase 63 Total Protein 6.5 Albumin 2.5 L 09/22/18 09/22/18 07:56 07:56 WBC 9.6 RBC 4.05 Hgb 12.1 Hct 37.8 MCV 93.5 MCH 29.8 MCHC 31.9 L RDW 17.7 H Plt Count 245 MPV 6.9 L Prelim Diff (Auto) Slide review pending Neut % (Auto) 68.9 Lymph % (Auto) 22.1 [place] % (Auto) 6.1 Eos % (Auto) 2.4 Baso % (Auto) 0.5 Neut # (Auto) 6.6 Lymph # (Auto) 2.1 [place] # (Auto) 0.6 Eos # (Auto) 0.2 Baso # (Auto) 0.1 WBC Differential . Diff Scan Auto diff confirmed Differential Comment . Platelet Estimate Normal Platelet Morphology Normal Ovalocytes 1+ H PT 15.2 H INR 1.5 Sodium Potassium Chloride Carbon Dioxide Anion Gap BUN Creatinine Estimated GFR POC Glucose Random Glucose Calcium Total Bilirubin AST ALT Alkaline Phosphatase Total Protein Albumin Microbiology 09/20/18 09:30 Abscess - Abdominal Gram Stain - Final 09/20/18 09:30 Abscess - Abdominal Wound Culture - Preliminary gram negative rods Grecia albicans Group D Enterococcus - Procedures PEG tube removed. Assessment and Plan - Assessment (1) Status post tracheostomy Code(s): Z93.0 - Tracheostomy status Status: Acute (2) Acute kidney injury Code(s): N17.9 - Acute kidney failure, unspecified Status: Acute (3) Acute UTI (urinary tract infection) Code(s): N39.0 - Urinary tract infection, site not specified Status: Acute (4) Hypoxia Code(s): R09.02 - Hypoxemia Status: Acute (5) SVT (supraventricular tachycardia) Code(s): I47.1 - Supraventricular tachycardia Status: Acute (6) Sepsis secondary to UTI Code(s): A41.9 - Sepsis, unspecified organism; N39.0 - Urinary tract infection, site not specified Status: Acute (7) Hypernatremia Code(s): E87.0 - Hyperosmolality and hypernatremia Status: Acute (8) Respiratory failure Code(s): J96.90 - Respiratory failure, unspecified, unspecified whether with hypoxia or hypercapnia Status: Acute - Plan 1. O2 35 % with Trach collar 2. Take out cap from trach 3 Cont Antibiotics for Enterococcal sepsis. 4. IS q3h bedside 5. Cont Duoneb nebs qid. 6. Cardiology to see 7. BMP CBC,CXR .
--- NOTE | 2018-09-22 13:43 | XR ---
EXAM DATE: 09/22/2018 1:39 PM EDT AGE/SEX: 68 years / Female INDICATIONS: Edema. CLINICAL DATA: This is the patient's initial encounter. Patient reports that signs and symptoms have been present for 4 - 6 days and indicates a pain score of 0/10. MEDICAL/SURGICAL HISTORY: . diabetes, hypertension . tubal ligation, tracheostomy COMPARISON: [facility], CHEST 1V SINGLE AP, 09/13/2018. . FINDINGS: The tracheostomy tube is in good position. Lung volumes are diminished. There is no visible pneumotho rax. Mild pulmonary vascular congestion. Heart is slightly enlarged. CONCLUSION: Small lung volumes. Mild pulmonary vascular congestion. Electronically signed by: Ryan Marrero MD 09/22/2018 1:42 PM EDT
--- NOTE | 2018-09-22 14:21 | P.PNIM ---
Subjective Interval history: Patient has had a busy day, she had a bedside I&D performed. She had some bleeding subsequently which is been addressed with dressing and packing. She is awaiting possible removal of her tracheostomy today. She takes Coumadin for atrial fibrillation, her heart rate is up today. Physical Exam Vital signs: Vital Signs 09/21/18 14:51 09/21/18 16:00 09/21/18 20:00 Temperature 96.6 F L 97 F L Pulse Rate 82 105 H 101 H Respiratory Rate 17 24 24 Blood Pressure 146/89 H 166/97 H Pulse Oximetry 94 L 98 09/21/18 20:32 09/22/18 00:00 09/22/18 04:00 Temperature 96.5 F L 97.2 F L Pulse Rate 100 H 90 94 H Respiratory Rate 20 24 22 Blood Pressure 133/77 142/78 H Pulse Oximetry 99 97 96 09/22/18 08:00 09/22/18 08:08 09/22/18 08:40 Temperature 97.4 F L Pulse Rate 115 H 94 H Respiratory Rate 24 Blood Pressure 148/82 H Pulse Oximetry 95 95 09/22/18 12:00 09/22/18 12:40 09/22/18 13:29 Temperature 96.8 F L Pulse Rate 150 H 100 H Respiratory Rate 28 H 20 Blood Pressure 150/98 H Pulse Oximetry 92 L 95 09/22/18 13:46 09/22/18 13:51 Temperature 97.5 F L Pulse Rate 148 H Respiratory Rate 24 Blood Pressure 138/78 Pulse Oximetry 90 L 92 L Intake & Output 09/21/18 09/22/18 09/22/18 18:59 06:59 18:59 Intake Total 2700 / 2700 2672 / 2672 100 / 100 Output Total 1500 / 1500 1450 / 1450 Balance 1200 / 1200 1222 / 1222 100 / 100 Weight 120.9 kg Intake: IV 1300 / 1300 1400 / 1400 100 / 100 NS Inj 1,000 ML @ 84 mls/hr IV. 1000 / 1000 1000 / 1000 CONT .[id number] BECKY Rx#:[id number] Unasyn Inj 3 GM In NS Inj 100 200 / 200 200 / 200 100 / 100 ML @ 200 mls/hr IV.SIG Q6H BECKY Rx#:[id number] INVanz Inj 1,000 MG In NS Inj 100 / 100 100 ML @ 200 mls/hr IV.SIG Q24H BECKY Rx#:[id number] Diflucan 400 mg Premix Bag 200 200 / 200 ML @ 100 mls/hr IV.SIG Q24H BECKY Rx#:[id number] Oral 1400 / 1400 200 / 200 Other 1072 / 1072 Output: Urine 1500 / 1500 1450 / 1450 Other: Date of Last Bowel Movement 09/21/18 # Bowel Movements 2 Narrative: GENERAL: AAOx3, mild distress, obese SKIN: Warm and dry. Abdominal cellulitis HEAD: Atruamtic, normocephalic. EYES: No scleral icterus. No injection or drainage. ENT: Moist mucous membranes, patent nares, no erythema of oropharynx. NECK: Supple, trachea midline. No JVD or lymphadenopathy. Normal thyroid. Tracheostomy in place, capped CARDIOVASCULAR: Regular rate and rhythm. No murmurs, gallops, or rubs. RESPIRATORY: Breath sounds clear equal bilaterally. No crackles or wheezes. No accessory muscle use. GASTROINTESTINAL: Abdomen obese, non-tender, large non-reducible umbilical hernia nondistended, normal active bowel sounds, bandaging around previous area of drainage MUSCULOSKELETAL: No cyanosis, or edema. NEURO: CN II-XII grossly intact, no focal deficits, no slurring of speech - Urinary Catheter Management Straight Cath placed during this visit: no Results - Labs CBC & Chem 7: 09/22/18 07:56 09/22/18 07:53 Laboratory Results - last 24 hr 09/21/18 09/22/18 09/22/18 16:23 07:53 07:55 WBC RBC Hgb Hct MCV MCH MCHC RDW Plt Count MPV Prelim Diff (Auto) Neut % (Auto) Lymph % (Auto) [place] % (Auto) Eos % (Auto) Baso % (Auto) Neut # (Auto) Lymph # (Auto) [place] # (Auto) Eos # (Auto) Baso # (Auto) WBC Differential Diff Scan Differential Comment Platelet Estimate Platelet Morphology Ovalocytes PT INR Sodium 142 Potassium 3.7 Chloride 101 Carbon Dioxide 35.7 H Anion Gap 5 BUN 17 Creatinine 0.72 Estimated GFR 81 L POC Glucose 329 H 155 H Random Glucose 146 H Calcium 8.4 L Total Bilirubin 0.3 AST 13 L ALT 32 Alkaline Phosphatase 63 Total Protein 6.5 Albumin 2.5 L 09/22/18 09/22/18 09/22/18 07:56 07:56 13:34 WBC 9.6 RBC 4.05 Hgb 12.1 Hct 37.8 MCV 93.5 MCH 29.8 MCHC 31.9 L RDW 17.7 H Plt Count 245 MPV 6.9 L Prelim Diff (Auto) Slide review pending Neut % (Auto) 68.9 Lymph % (Auto) 22.1 [place] % (Auto) 6.1 Eos % (Auto) 2.4 Baso % (Auto) 0.5 Neut # (Auto) 6.6 Lymph # (Auto) 2.1 [place] # (Auto) 0.6 Eos # (Auto) 0.2 Baso # (Auto) 0.1 WBC Differential . Diff Scan Auto diff confirmed Differential Comment . Platelet Estimate Normal Platelet Morphology Normal Ovalocytes 1+ H PT 15.2 H INR 1.5 Sodium Potassium Chloride Carbon Dioxide Anion Gap BUN Creatinine Estimated GFR POC Glucose 208 H Random Glucose Calcium Total Bilirubin AST ALT Alkaline Phosphatase Total Protein Albumin Microbiology 09/20/18 09:30 Abscess - Abdominal Gram Stain - Final 09/20/18 09:30 Abscess - Abdominal Wound Culture - Preliminary Klebsiella pneumoniae ESBL pos gram negative rods Grecia albicans Enterococcus faecium - Imaging Impressions Chest X-Ray 09/22/18 00:00 CONCLUSION: Small lung volumes. Mild pulmonary vascular congestion. - Procedures PEG tube removed. Assessment and Plan - Assessment (1) Tachycardia Code(s): R00.0 - Tachycardia, unspecified Status: Acute (2) Acute UTI (urinary tract infection) Code(s): N39.0 - Urinary tract infection, site not specified Status: Acute (3) Respiratory failure Code(s): J96.90 - Respiratory failure, unspecified, unspecified whether with hypoxia or hypercapnia Status: Acute (4) Complication of feeding tube Code(s): K94.23 - Gastrostomy malfunction Status: Acute - Plan This is a pleasant 68 y/o Female with Depression, DM II, Hypertension, Hyperlipidemia, Morbid Obesity recently Hospitalized May 2018, UTI/Sepsis, she was discharged on tracheostomy and PEG tube. She returned to the emergency room on 09/13/18 with erythema and swelling around her PEG site and a partially displaced PEG tube. PEG tube displacement, infection PEG tube was removed in the ED on 09/13, gastroenterology following Previously n.p.o., diet was advanced by speech and she is tolerating a diabetic diet PEG site became infected, E face examined faecalis, Grecia grew out (ESBL in urine) Continuing IV Unasyn per infectious disease for better enterococcal coverage Continue Invanz for ESBL Continue Diflucan I&D performed at bedside on 09/22/2018 Appreciate gastroenterology Appreciate general surgery consult with I&D Atrial fibrillation Warfarin held for procedure Heart rate was previously controlled with digoxin alone Heart rate today has been from 100-150, metoprolol added as a one-time dose Patient is likely having increased anxiety pain following procedures Will follow pattern and consider continuing metoprolol until trend resolves Respiratory failure Trach placed 06/15/2018 Continuing bronchodilator, mucolytic, incentive spirometry Trach has remained a nonissue since being capped by respiratory therapy Pulmonology consulted to assist with removal of tracheostomy Appreciate pulmonology consult Sepsis Present on admission now resolved ESBL UTI Patient previously admitted for sepsis/UTI, previous culture also grew out Klebsiella and Grecia As above continue Invanz Diarrhea C. difficile negative Continue Lomotil as needed DVT prophylaxis Warfarin, INR currently 1.5, will resume when procedures are completed
--- NOTE | 2018-09-22 16:16 | P.CONCA ---
History of Present Illness Service: cardiology Consult date: 09/22/18 Requesting Physician: Cheko Hightower Reason for Consult: atrial fibrillation with RVR Primary Care Provider: No Primary Care Physician Chief Complaint: PEG tube displaced History of Present Illness: Patient is an unfortunate 68-year-old lady with super morbid obesity, diabetes, hypertension, dyslipidemia, multiple recent hospitalizations in May 2018 for UTI/sepsis with hospitalization course complicated at that time with patient discharged with trach and PEG tube. She apparently has rate controlled permanent atrial fibrillation and is maintained on Coumadin for chronic anticoagulation therapy. She returned for admission on 09/13/18 with cellulitis around her PEG site and a partially displaced PEG tube. Earlier today she underwent I&D at her PEG site and has been maintained on empiric antibiotics for ESBL. She was noted to have rapid ventricular response of her permanent atrial fibrillation earlier today with HR up to 150s. BP remained stable. Patient was asymptomatic. She was provided 12.5 mg metoprolol tartrate with improvement in HR to the 90s. Currently, she is in atrial fibrillation heart rate 97 on telemetry. She has some pain at the I&D site. Chest x-ray was obtained which shows mild vascular congestion. Review of Systems All other systems reviewed negative except as stated in HPI PMFSH - History History Provided By: Patient, Family Member, Medical Record - Medical History Medical History: Medical History (Last Reviewed 09/21/18 @ 09:18 by Manjula Bruno) MDRO (multiple drug resistant organisms) resistance Onset Date: ~09/13/18 Depression Diabetes Hypertension Hypertriglyceridemia Morbid obesity - Surgical History Surgical History: Surgical History (Last Reviewed 09/21/18 @ 09:18 by Manjula Bruno) Hx of tubal ligation - Family History Family History: Family History (Last Reviewed 09/21/18 @ 09:18 by Manjula Bruno) Grandparent Colon cancer - Tobacco History Second Hand Smoke Exposure: No Tobacco Use In Past 30 Days: No Smoking Status: Former smoker Tobacco Type: Cigarettes Packs Per Day: 2 Years Smoked: 40 - Alcohol History How Often Do You Have a Drink Containing Alcohol: Never - Substance Use History Substance History: No History of Abuse - Travel History Recent Travel in the [place] Within the Last 8 Weeks: No Recent Travel Out of the Country Within the Last 8 Weeks: No - Immunization History Tetanus Immunization: Unsure Medications and Allergies Active Medications: Active Medications Acetaminophen (Tylenol) 650 mg PO Q4H PRN PRN Reason: Temp > 100.4 Last Admin: 09/20/18 21:31 Dose: 650 mg Albuterol (Duoneb Neb (Prn)) 1 ampul INH Q4HR NEB PRN PRN Reason: SHORTNESS OF BREATH Last Admin: 09/18/18 17:18 Dose: 1 ampul Albuterol (Duoneb Neb (Casie)) 1 ampul NEB Q6HR WHILE AWAKE NEB CASIE Last Admin: 09/22/18 12:29 Dose: 1 ampul Budesonide/Formoterol Fumarate (Symbicort 160/4.5 Mcg Inh) 2 puff INH BID [facility] Last Admin: 09/22/18 09:00 Dose: 2 puff Citalopram Hydrobromide (Celexa) 40 mg PO DAILY [facility] Last Admin: 09/22/18 09:00 Dose: 40 mg Dextrose (D50w Vial) 50 ml IV.PUSH UNSCH PRN PRN Reason: PER HYPOGLYCEMIA PROTOCOL Digoxin (Lanoxin) 125 mcg PO DAILY [facility] Last Admin: 09/22/18 09:00 Dose: 125 mcg Diltiazem HCl (Cardizem Inj) 5 mg IV.PUSH UNSCH PRN PRN Reason: SEE LABEL COMMENTS Last Admin: 09/14/18 02:34 Dose: 5 mg Diphenoxylate HCl/Atropine (Lomotil) 1 tab PO Q6H PRN PRN Reason: DIARRHEA Last Admin: 09/19/18 16:09 Dose: 1 tab Glucagon (Glucagon Inj) 1 mg OTHER PRN PRN PRN Reason: for Hypoglycemia Protocol Hyoscyamine (Levsin) 0.125 mg PO Q3H PRN PRN Reason: SECRETIONS Last Admin: 09/19/18 10:24 Dose: 0.125 mg Fluconazole (Diflucan 400 Mg Premix Bag) 200 mls @ 100 mls/hr IV.SIG Q24H CASIE Last Infusion: 09/22/18 01:55 Dose: Infused Ampicillin Sodium/Sulbactam (Sodium 3 gm/ Sodium Chloride) 100 mls @ 200 mls/ hr IV.SIG Q6H [facility] Last Infusion: 09/22/18 14:34 Dose: Infused Ertapenem 1,000 mg/ Sodium (Chloride) 100 mls @ 200 mls/hr IV.SIG Q24H [facility] Last Infusion: 09/22/18 15:21 Dose: Infused Insulin Aspart (Novolog Insulin Correctional Sugar Inj) 0 unit SQ ACHS [facility]; Protocol Last Admin: 09/22/18 12:00 Dose: 3 unit Lactobacillus Acidophilus (Lactinex) 1 tab PO TID [facility] Last Admin: 09/22/18 13:01 Dose: 1 tab Lorazepam (Ativan) 1 mg PO Q4H PRN PRN Reason: Anxiety Metoprolol Tartrate (Lopressor) 25 mg PO BID [facility] Morphine Sulfate (Roxanol Liq) 5 mg SL Q3HR PRN PRN Reason: PAIN SCALE 6 TO 10 Last Admin: 09/17/18 09:49 Dose: 5 mg Pharmacy Profile Note (Coumadin Consult Pharmacy) 1 each OTHER UNSCH PRN PRN Reason: PHARMACY DOCUMENTATION Prednisone (Deltasone) 20 mg PO DAILY [facility] Last Admin: 09/22/18 09:00 Dose: 20 mg Sennosides (Senokot) 17.2 mg PO Q12H PRN PRN Reason: Moderate Constipation Sodium Chloride (Ns Flush) 2 ml IV.FLUSH BID [facility] Last Admin: 09/22/18 09:00 Dose: 2 ml Sodium Chloride (Ns Flush) 2 ml IV.FLUSH PRN PRN PRN Reason: FLUSH AFTER USING IV ACCESS Warfarin Sodium (Coumadin) 3 mg PO DAILY@1600 [facility] Last Admin: 09/21/18 15:44 Dose: Not Given Allergies Allergy/AdvReac Type Severity Reaction Status Date / Time No Known Allergies Allergy Verified 05/30/18 22:08 Home Medications Medication Instructions Recorded Confirmed Type citalopram [Celexa] 40 mg PO DAILY 09/13/18 09/13/18 History famotidine [Pepcid] 20 mg PO BID 09/13/18 09/13/18 History glipizide 5 mg PO BID 09/13/18 09/13/18 History hydrocodone-acetaminophen [Hycet] 10 ml PO Q4HR 09/13/18 09/13/18 History hyoscyamine sulfate [Levsin/SL] 0.125 mg SUBLINGUAL Q3HR PRN 09/13/18 09/13/18 History ipratropium-albuterol 3 ml INHALATION Q4HR PRN 09/13/18 09/13/18 History lorazepam 1 mg PO Q6HR PRN 09/13/18 09/13/18 History metformin 1,000 mg PO BID 09/13/18 09/13/18 History morphine concentrate 5 mg SUBLINGUAL Q3HR PRN 09/13/18 09/13/18 History prednisone 20 mg PO DAILY 09/13/18 09/13/18 History warfarin [Jantoven] 6 mg PO DAILY 09/13/18 09/13/18 History Exam Vital signs: Vital Signs 09/21/18 20:00 09/21/18 20:32 09/22/18 00:00 Temperature 97 F L 96.5 F L Pulse Rate 101 H 100 H 90 Respiratory Rate 24 20 24 Blood Pressure 166/97 H 133/77 Pulse Oximetry 98 99 97 09/22/18 04:00 09/22/18 08:00 09/22/18 08:08 Temperature 97.2 F L 97.4 F L Pulse Rate 94 H 115 H 94 H Respiratory Rate 22 24 Blood Pressure 142/78 H 148/82 H Pulse Oximetry 96 95 09/22/18 08:40 09/22/18 12:00 09/22/18 12:40 Temperature 96.8 F L Pulse Rate 150 H 100 H Respiratory Rate 28 H 20 Blood Pressure 150/98 H Pulse Oximetry 95 92 L 09/22/18 13:00 09/22/18 13:29 09/22/18 13:46 Temperature 97.5 F L Pulse Rate 155 H 148 H Respiratory Rate 24 Blood Pressure 138/78 Pulse Oximetry 95 90 L 09/22/18 13:51 09/22/18 15:24 09/22/18 15:25 Temperature Pulse Rate 113 H 160 H Respiratory Rate Blood Pressure Pulse Oximetry 92 L Intake & Output 09/21/18 09/22/18 09/22/18 18:59 06:59 18:59 Intake Total 2700 / 2700 2672 / 2672 1300 / 1300 Output Total 1500 / 1500 1450 / 1450 Balance 1200 / 1200 1222 / 1222 1300 / 1300 Weight 120.9 kg Intake: IV 1300 / 1300 1400 / 1400 1300 / 1300 NS Inj 1,000 ML @ 84 mls/hr IV. 1000 / 1000 1000 / 1000 1000 / 1000 CONT .[id number] [facility] Rx#:[id number] Unasyn Inj 3 GM In NS Inj 100 200 / 200 200 / 200 200 / 200 ML @ 200 mls/hr IV.SIG Q6H [facility] Rx#:[id number] INVanz Inj 1,000 MG In NS Inj 100 / 100 100 / 100 100 ML @ 200 mls/hr IV.SIG Q24H [facility] Rx#:[id number] Diflucan 400 mg Premix Bag 200 200 / 200 ML @ 100 mls/hr IV.SIG Q24H [facility] Rx#:[id number] Oral 1400 / 1400 200 / 200 Other 1072 / 1072 Output: Urine 1500 / 1500 1450 / 1450 Other: Date of Last Bowel Movement 09/21/18 09/22/18 # Bowel Movements 2 Narrative: GENERAL: Chronically ill appearing, super morbid obesity, tracheostomy uncapped to free air SKIN: Warm and dry. HEAD: Atraumatic. Normocephalic. NECK: Trachea midline. Tracheostomy uncapped to free air. JVD unable to appreciate due to her thick neck CARDIOVASCULAR: Irregularly irregular, mildly tachycardic, distant heart sounds RESPIRATORY: No accessory muscle use. Distant breath sounds GASTROINTESTINAL: Abdomen soft, tender to palpation over dressing in the anterior abdomen which is clean dry and intact MUSCULOSKELETAL: Extremities without clubbing, cyanosis, or edema. No obvious deformities. NEUROLOGICAL: Awake and alert. No obvious cranial nerve deficits. PSYCHIATRIC: Appropriate mood and affect; insight and judgment normal. Results 09/22/18 07:56 09/22/18 07:53 Cardiac Enzymes 09/21/18 09/22/18 Range/Units 09:23 07:53 AST 16 13 L (15-37) U/L Coagulation 09/21/18 09/22/18 Range/Units 09:23 07:56 PT 17.4 H 15.2 H (9.8-11.6) sec CBC 09/21/18 09/22/18 Range/Units 09:23 07:56 WBC 8.7 9.6 (4.0-11.0) th/mm3 RBC 3.98 L 4.05 (4.00-5.30) mil/mm3 Hgb 12.1 12.1 (11.6-15.3) gm/dL Hct 37.0 37.8 (35.0-46.0) % Plt Count 238 245 (150-450) th/mm3 Neut # (Auto) 6.0 6.6 (1.8-7.7) th/mm3 Lymph # (Auto) 1.8 2.1 (1.0-4.8) th/mm3 [place] # (Auto) 0.5 0.6 (0.0-0.9) th/mm3 Eos # (Auto) 0.2 0.2 (0.0-0.4) th/mm3 Baso # (Auto) 0.1 0.1 (0.0-0.2) th/mm3 Comprehensive Metabolic Panel 09/21/18 09/22/18 Range/Units 09:23 07:53 Sodium 142 142 (136-145) meq/L Potassium 3.8 3.7 (3.5-5.1) meq/L Chloride 99 101 (98-107) meq/L Carbon Dioxide 34.9 H 35.7 H (21.0-32.0) meq/L BUN 15 17 (7-18) mg/dL Creatinine 0.75 0.72 (0.50-1.00) mg/dL Calcium 8.3 L 8.4 L (8.5-10.1) mg/dL AST 16 13 L (15-37) U/L ALT 34 32 (10-53) U/L Alkaline Phosphatase 64 63 (45-117) U/L Total Protein 6.4 D 6.5 (6.4-8.2) g/dL Albumin 2.5 L 2.5 L (3.4-5.0) g/dL Intake and Output 09/22/18 09/22/18 09/22/18 06:59 14:59 22:59 Intake Total 2572 / 2572 200 / 200 1100 / 1100 Output Total 1450 / 1450 Balance 1122 / 1122 200 / 200 1100 / 1100 Intake: IV 1300 / 1300 200 / 200 1100 / 1100 NS Inj 1,000 ML @ 84 mls/hr IV. 1000 / 1000 1000 / 1000 CONT .[id number] [facility] Rx#:[id number] Unasyn Inj 3 GM In NS Inj 100 100 / 100 200 / 200 ML @ 200 mls/hr IV.SIG Q6H [facility] Rx#:[id number] INVanz Inj 1,000 MG In NS Inj 100 / 100 100 ML @ 200 mls/hr IV.SIG Q24H [facility] Rx#:[id number] Diflucan 400 mg Premix Bag 200 200 / 200 ML @ 100 mls/hr IV.SIG Q24H [facility] Rx#:[id number] Oral 200 / 200 Other 1072 / 1072 Output: Urine 1450 / 1450 Other: Date of Last Bowel Movement 09/22/18 Weight 120.9 kg - Imaging and Cardiology Imaging: Impressions Abdomen/Pelvis CT 09/20/18 00:00 CONCLUSION: 1. No significant inflammation and induration around the patient's G-tube tract with a number of small soft tissue nodules medial to the tract could be additional areas of infection. There is no large drainable abscess just diffuse induration and small collections of soft tissue presumed infection. 2. Large fatty abdominal wall hernia in the left anterior abdomen. 3. Gallstones in a noninflamed gallbladder 4. Low-density but lobulated pelvic mass on the right. Need to rule out ovarian malignancy. Outpatient pelvic MRI is recommended Chest X-Ray 09/22/18 00:00 CONCLUSION: Small lung volumes. Mild pulmonary vascular congestion. Assessment and Plan - Plan Assessment: -Permanent atrial fibrillation, recently with rapid ventricular response which I suspected was adrenergically mediated elevation in HR, following I&D of abdominal abscess earlier today. -Iatrogenic coagulopathy-INR currently subtherapeutic as Coumadin was held for I &D today. Recommendations: -Continue digoxin 125 mcg daily -Start metoprolol tartrate 25 mg twice daily with holding parameters -Resume Coumadin for chronic anticoagulation therapy, goal INR 2-3 when bleeding risk is deemed acceptable -Furosemide 40 mg IVP x1, KCl 40 mEq p.o. x1. May provide additional diuretic therapy if she is found to have hypoxemia or breathing disturbance. She does not appear to be overtly volume overloaded though difficult to assess by clinical examination. We will sign off for now. Please contact with any further questions.
[2018-09-22] MEDS: Acetaminophen 325 MG Tablet PO PRN (16:21)
[2018-09-22] MEDS ORDERED: Metoprolol Tartrate 25 MG Tablet PO SCH (21:00)
[2018-09-22] MEDS: Metoprolol Tartrate 25 MG Tablet PO SCH (22:18)
[2018-09-23] MEDS: Ampicillin/Sulbactam Inj 3 GM in Sodium Chloride 0.9% Inj 100 ML IV.SIG SCH ×2 (02:20→08:04)
[2018-09-23] MEDS: Lactobacillus Acidophilus/L. Spores Tablet PO SCH ×3 (08:03→17:20)
[2018-09-23] MEDS: Budesonide-Formoterol 160/4.5 MCG 6 GM Inhaler INH SCH ×2 (08:03→20:58)
[2018-09-23] MEDS: predniSONE 20 MG Tablet PO SCH (08:03)
[2018-09-23] MEDS: Digoxin 125 MCG Tablet PO SCH (08:03)
[2018-09-23] MEDS: Metoprolol Tartrate 25 MG Tablet PO SCH ×2 (08:04→20:54)
[2018-09-23] MEDS: Insulin NovoLOG Aspart Correctional Sugar Inj SQ SCH ×4 (08:18→20:56)
[2018-09-23 08:53] LABS: INR 1.6 Ratio
--- NOTE | 2018-09-23 09:21 | P.PNIM ---
Subjective Interval history: Patient is feeling better today, less anxiety, heart rate has returned to normal , less bleeding at site of I&D, Coumadin has been restarted. Physical Exam Vital signs: Vital Signs 09/22/18 12:00 09/22/18 12:40 09/22/18 13:00 Temperature 96.8 F L Pulse Rate 150 H 100 H 155 H Respiratory Rate 28 H 20 Blood Pressure 150/98 H Pulse Oximetry 92 L 09/22/18 13:29 09/22/18 13:46 09/22/18 13:51 Temperature 97.5 F L Pulse Rate 148 H Respiratory Rate 24 Blood Pressure 138/78 Pulse Oximetry 95 90 L 92 L 09/22/18 15:24 09/22/18 15:25 09/22/18 16:00 Temperature 96.9 F L Pulse Rate 113 H 160 H 120 H Respiratory Rate 22 Blood Pressure 145/70 H Pulse Oximetry 91 L 09/22/18 17:00 09/22/18 19:45 09/22/18 20:00 Temperature 97.4 F L Pulse Rate 108 H Respiratory Rate 20 19 Blood Pressure 128/72 Pulse Oximetry 99 95 09/23/18 04:00 09/23/18 07:43 09/23/18 08:00 Temperature 97.0 F L 98.4 F Pulse Rate 74 54 L 76 Respiratory Rate 19 12 Blood Pressure 153/80 H 118/89 Pulse Oximetry 98 98 09/23/18 08:59 09/23/18 09:16 Temperature Pulse Rate 83 Respiratory Rate 18 Blood Pressure Pulse Oximetry 100 100 Intake & Output 09/22/18 09/23/18 09/23/18 18:59 06:59 18:59 Intake Total 2500 / 2500 400 / 400 Output Total 3000 / 3000 Balance -500 / -500 400 / 400 Intake: IV 1300 / 1300 400 / 400 NS Inj 1,000 ML @ 84 mls/hr IV. 1000 / 1000 CONT .[id number] [facility] Rx#:[id number] Unasyn Inj 3 GM In NS Inj 100 200 / 200 200 / 200 ML @ 200 mls/hr IV.SIG Q6H [facility] Rx#:[id number] INVanz Inj 1,000 MG In NS Inj 100 / 100 100 ML @ 200 mls/hr IV.SIG Q24H [facility] Rx#:[id number] Diflucan 400 mg Premix Bag 200 200 / 200 ML @ 100 mls/hr IV.SIG Q24H [facility] Rx#:[id number] Oral 1200 / 1200 Output: Urine 3000 / 3000 Other: Date of Last Bowel Movement 09/22/18 09/22/18 09/23/18 # Bowel Movements 1 Narrative: GENERAL: AAOx3, mild distress, obese SKIN: Warm and dry. Abdominal cellulitis, I&D site under bandage with no soaked blood HEAD: Atruamtic, normocephalic. EYES: No scleral icterus. No injection or drainage. ENT: Moist mucous membranes, patent nares, no erythema of oropharynx. NECK: Supple, trachea midline. No JVD or lymphadenopathy. Normal thyroid. Tracheostomy in place, capped CARDIOVASCULAR: Regular rate and rhythm. No murmurs, gallops, or rubs. RESPIRATORY: Breath sounds clear equal bilaterally. No crackles or wheezes. No accessory muscle use. GASTROINTESTINAL: Abdomen obese, non-tender, large non-reducible umbilical hernia nondistended, normal active bowel sounds, bandaging around previous area of drainage MUSCULOSKELETAL: No cyanosis, or edema. NEURO: CN II-XII grossly intact, no focal deficits, no slurring of speech - Urinary Catheter Management Straight Cath placed during this visit: no Results - Labs CBC & Chem 7: 09/22/18 07:56 09/22/18 07:53 Laboratory Results - last 24 hr 09/22/18 09/22/18 09/22/18 07:53 07:56 07:56 WBC 9.6 RBC 4.05 Hgb 12.1 Hct 37.8 MCV 93.5 MCH 29.8 MCHC 31.9 L RDW 17.7 H Plt Count 245 MPV 6.9 L Prelim Diff (Auto) Slide review pending Neut % (Auto) 68.9 Lymph % (Auto) 22.1 [place] % (Auto) 6.1 Eos % (Auto) 2.4 Baso % (Auto) 0.5 Neut # (Auto) 6.6 Lymph # (Auto) 2.1 [place] # (Auto) 0.6 Eos # (Auto) 0.2 Baso # (Auto) 0.1 WBC Differential . Diff Scan Auto diff confirmed Differential Comment . Platelet Estimate Normal Platelet Morphology Normal Ovalocytes 1+ H PT 15.2 H INR 1.5 Sodium 142 Potassium 3.7 Chloride 101 Carbon Dioxide 35.7 H Anion Gap 5 BUN 17 Creatinine 0.72 Estimated GFR 81 L POC Glucose Random Glucose 146 H Calcium 8.4 L Total Bilirubin 0.3 AST 13 L ALT 32 Alkaline Phosphatase 63 Total Protein 6.5 Albumin 2.5 L 09/22/18 09/22/18 09/22/18 13:34 18:43 22:21 WBC RBC Hgb Hct MCV MCH MCHC RDW Plt Count MPV Prelim Diff (Auto) Neut % (Auto) Lymph % (Auto) [place] % (Auto) Eos % (Auto) Baso % (Auto) Neut # (Auto) Lymph # (Auto) [place] # (Auto) Eos # (Auto) Baso # (Auto) WBC Differential Diff Scan Differential Comment Platelet Estimate Platelet Morphology Ovalocytes PT INR Sodium Potassium Chloride Carbon Dioxide Anion Gap BUN Creatinine Estimated GFR POC Glucose 208 H 274 H 229 H Random Glucose Calcium Total Bilirubin AST ALT Alkaline Phosphatase Total Protein Albumin 09/23/18 09/23/18 09/23/18 06:33 08:15 08:21 WBC RBC Hgb Hct MCV MCH MCHC RDW Plt Count MPV Prelim Diff (Auto) Neut % (Auto) Lymph % (Auto) [place] % (Auto) Eos % (Auto) Baso % (Auto) Neut # (Auto) Lymph # (Auto) [place] # (Auto) Eos # (Auto) Baso # (Auto) WBC Differential Diff Scan Differential Comment Platelet Estimate Platelet Morphology Ovalocytes PT 16.0 H INR 1.6 Sodium Potassium Chloride Carbon Dioxide Anion Gap BUN Creatinine Estimated GFR POC Glucose 126 H 144 H Random Glucose Calcium Total Bilirubin AST ALT Alkaline Phosphatase Total Protein Albumin Microbiology 09/20/18 09:30 Abscess - Abdominal Gram Stain - Final 09/20/18 09:30 Abscess - Abdominal Wound Culture - Preliminary Klebsiella pneumoniae ESBL pos gram negative rods Grecia albicans Enterococcus faecium - Imaging Impressions Chest X-Ray 09/22/18 00:00 CONCLUSION: Small lung volumes. Mild pulmonary vascular congestion. - Procedures PEG tube removed. Assessment and Plan - Assessment (1) Tachycardia Code(s): R00.0 - Tachycardia, unspecified Status: Acute (2) Acute UTI (urinary tract infection) Code(s): N39.0 - Urinary tract infection, site not specified Status: Acute (3) Respiratory failure Code(s): J96.90 - Respiratory failure, unspecified, unspecified whether with hypoxia or hypercapnia Status: Acute (4) Complication of feeding tube Code(s): K94.23 - Gastrostomy malfunction Status: Acute - Plan This is a pleasant 68 y/o Female with Depression, DM II, Hypertension, Hyperlipidemia, Morbid Obesity recently Hospitalized May 2018, UTI/Sepsis, she was discharged on tracheostomy and PEG tube. She returned to the emergency room on 09/13/18 with erythema and swelling around her PEG site and a partially displaced PEG tube. PEG tube displacement, infection PEG tube was removed in the ED on 09/13, gastroenterology following Previously n.p.o., diet was advanced by speech and she is tolerating a diabetic diet PEG site became infected, E face examined faecalis, Grecia grew out (ESBL in urine) Continuing IV Unasyn per infectious disease for better enterococcal coverage Continue Invanz for ESBL Continue Diflucan I&D performed at bedside on 09/22/2018 Appreciate gastroenterology Appreciate general surgery consult with I&D Atrial fibrillation Warfarin held for procedure Heart rate was previously controlled with digoxin alone Cardiology added metoprolol 25 mg twice daily Patient's rate has returned to normal Appreciate cardiology consult Respiratory failure Trach placed 06/15/2018 Trach decannulated 09/23/18 Continuing bronchodilator, mucolytic, incentive spirometry Appreciate pulmonology consult Sepsis Present on admission now resolved ESBL UTI Patient previously admitted for sepsis/UTI, previous culture also grew out Klebsiella and Grecia As above continue Invanz Diarrhea C. difficile negative Continue Lomotil as needed DVT prophylaxis Warfarin, INR currently 1.5, will resume when procedures are completed
--- NOTE | 2018-09-23 09:50 | P.PNGS ---
Subjective Interval history: No complaints. Packing recently changed. Physical Exam Vital signs: Vital Signs 09/22/18 12:00 09/22/18 12:40 09/22/18 13:00 Temperature 96.8 F L Pulse Rate 150 H 100 H 155 H Respiratory Rate 28 H 20 Blood Pressure 150/98 H Pulse Oximetry 92 L 09/22/18 13:29 09/22/18 13:46 09/22/18 13:51 Temperature 97.5 F L Pulse Rate 148 H Respiratory Rate 24 Blood Pressure 138/78 Pulse Oximetry 95 90 L 92 L 09/22/18 15:24 09/22/18 15:25 09/22/18 16:00 Temperature 96.9 F L Pulse Rate 113 H 160 H 120 H Respiratory Rate 22 Blood Pressure 145/70 H Pulse Oximetry 91 L 09/22/18 17:00 09/22/18 19:45 09/22/18 20:00 Temperature 97.4 F L Pulse Rate 108 H Respiratory Rate 20 19 Blood Pressure 128/72 Pulse Oximetry 99 95 09/23/18 04:00 09/23/18 07:43 09/23/18 08:00 Temperature 97.0 F L 98.4 F Pulse Rate 74 54 L 76 Respiratory Rate 19 12 Blood Pressure 153/80 H 118/89 Pulse Oximetry 98 98 09/23/18 08:59 09/23/18 09:16 Temperature Pulse Rate 83 Respiratory Rate 18 Blood Pressure Pulse Oximetry 100 100 Intake & Output 09/22/18 09/23/18 09/23/18 18:59 06:59 18:59 Intake Total 2500 / 2500 400 / 400 Output Total 3000 / 3000 Balance -500 / -500 400 / 400 Intake: IV 1300 / 1300 400 / 400 NS Inj 1,000 ML @ 84 mls/hr IV. 1000 / 1000 CONT .[id number] BECKY Rx#:[id number] Unasyn Inj 3 GM In NS Inj 100 200 / 200 200 / 200 ML @ 200 mls/hr IV.SIG Q6H BECKY Rx#:[id number] INVanz Inj 1,000 MG In NS Inj 100 / 100 100 ML @ 200 mls/hr IV.SIG Q24H BECKY Rx#:[id number] Diflucan 400 mg Premix Bag 200 200 / 200 ML @ 100 mls/hr IV.SIG Q24H BECKY Rx#:[id number] Oral 1200 / 1200 Output: Urine 3000 / 3000 Other: Date of Last Bowel Movement 09/22/18 09/22/18 09/23/18 # Bowel Movements 1 Narrative: NAD Abd wound without significant purulent drainage - Urinary Catheter Management Straight Cath placed during this visit: no Results - Labs 09/22/18 07:56 09/22/18 07:53 Laboratory Results - last 24 hr 09/22/18 09/22/18 09/22/18 07:53 07:56 07:56 WBC 9.6 RBC 4.05 Hgb 12.1 Hct 37.8 MCV 93.5 MCH 29.8 MCHC 31.9 L RDW 17.7 H Plt Count 245 MPV 6.9 L Prelim Diff (Auto) Slide review pending Neut % (Auto) 68.9 Lymph % (Auto) 22.1 [place] % (Auto) 6.1 Eos % (Auto) 2.4 Baso % (Auto) 0.5 Neut # (Auto) 6.6 Lymph # (Auto) 2.1 [place] # (Auto) 0.6 Eos # (Auto) 0.2 Baso # (Auto) 0.1 WBC Differential . Diff Scan Auto diff confirmed Differential Comment . Platelet Estimate Normal Platelet Morphology Normal Ovalocytes 1+ H PT 15.2 H INR 1.5 Sodium 142 Potassium 3.7 Chloride 101 Carbon Dioxide 35.7 H Anion Gap 5 BUN 17 Creatinine 0.72 Estimated GFR 81 L POC Glucose Random Glucose 146 H Calcium 8.4 L Total Bilirubin 0.3 AST 13 L ALT 32 Alkaline Phosphatase 63 Total Protein 6.5 Albumin 2.5 L 09/22/18 09/22/18 09/22/18 13:34 18:43 22:21 WBC RBC Hgb Hct MCV MCH MCHC RDW Plt Count MPV Prelim Diff (Auto) Neut % (Auto) Lymph % (Auto) [place] % (Auto) Eos % (Auto) Baso % (Auto) Neut # (Auto) Lymph # (Auto) [place] # (Auto) Eos # (Auto) Baso # (Auto) WBC Differential Diff Scan Differential Comment Platelet Estimate Platelet Morphology Ovalocytes PT INR Sodium Potassium Chloride Carbon Dioxide Anion Gap BUN Creatinine Estimated GFR POC Glucose 208 H 274 H 229 H Random Glucose Calcium Total Bilirubin AST ALT Alkaline Phosphatase Total Protein Albumin 09/23/18 09/23/18 09/23/18 06:33 08:15 08:21 WBC RBC Hgb Hct MCV MCH MCHC RDW Plt Count MPV Prelim Diff (Auto) Neut % (Auto) Lymph % (Auto) [place] % (Auto) Eos % (Auto) Baso % (Auto) Neut # (Auto) Lymph # (Auto) [place] # (Auto) Eos # (Auto) Baso # (Auto) WBC Differential Diff Scan Differential Comment Platelet Estimate Platelet Morphology Ovalocytes PT 16.0 H INR 1.6 Sodium Potassium Chloride Carbon Dioxide Anion Gap BUN Creatinine Estimated GFR POC Glucose 126 H 144 H Random Glucose Calcium Total Bilirubin AST ALT Alkaline Phosphatase Total Protein Albumin - Imaging Imaging: ITS Impressions Videofluoroscopic Swallow 09/14/18 00:00 CONCLUSION: No evidence of penetration or aspiration. See full report by the speech pathologist. Abdomen/Pelvis CT 09/20/18 00:00 CONCLUSION: 1. No significant inflammation and induration around the patient's G-tube tract with a number of small soft tissue nodules medial to the tract could be additional areas of infection. There is no large drainable abscess just diffuse induration and small collections of soft tissue presumed infection. 2. Large fatty abdominal wall hernia in the left anterior abdomen. 3. Gallstones in a noninflamed gallbladder 4. Low-density but lobulated pelvic mass on the right. Need to rule out ovarian malignancy. Outpatient pelvic MRI is recommended Chest X-Ray 09/22/18 00:00 CONCLUSION: Small lung volumes. Mild pulmonary vascular congestion. Assessment and Plan - Assessment (1) Abdominal wall abscess at site of surgical wound Code(s): T81.49XA - Infection following a procedure, other surgical site, initial encounter Status: Acute - Plan S/p I&D of PEG site abscess. Continue BID packing changes. She can f/u with me in two weeks.
--- NOTE | 2018-09-23 13:12 | P.PNID ---
Subjective Remarks: Patient is a 68-year-old female, brought into the hospital for evaluation of her PEG tube. Patient was hospitalized here back in May and at that time she was treated for sepsis. She had a UTI, and also had what looks like an infection on 1 of her toes on the right foot. She ended up on the respirator, and has required continued ventilatory support, requiring tracheostomy. She also had a PEG tube placed at that time. She was discharged to [facility] towards the end of May, and apparently she was discharged around the second week in August and has been at home. Patient gets tube feedings 24 hours a day, and she still is able to eat some. She has a Passy- David valve on her trach. She stays mostly in bed, and sometimes dangles at the side of the bed, and she could stand up but does not really do any ambulation. Recently apparently she has been having problem with leaking around the PEG tube. She was also noted to have some swelling around the PEG tube site. She presented to the hospital, and she had a fever of 100.9. Her white count is elevated at 14,000. She had a CT of the abdomen and pelvis which did not show any evidence of intra-abdominal abscess, but it shows that the PEG is almost out with some debris along the PEG tube tract and some into the peritoneal cavity. The PEG was removed in the ED. She had a swallowing eval with no evidence of aspiration. Patient currently is on a T-piece. She denies any shortness of breath. Her abdominal pain is better. She is awake and alert. Her temperatures are better. BP is stable and she is not on any pressor support. 2 blood cultures were done in the ED and one blood culture is currently going growing enterococcus. Her chest x-ray is normal. Infectious disease consultation has been requested to evaluate the patient with positive blood culture. Notes reviewed temps better D/W RN Trach has been decannulated Doing well C/S with Kleb ESBL+, enterococcus and crispin albicans WBC normal Antibiotics: Invanz Unasyn Diflucan Lines: PIV Past Medical History: MDRO (multiple drug resistant organisms) resistance Onset Date: ~09/13/18 Depression Diabetes Hypertension Hypertriglyceridemia Morbid obesity Tubal ligation PEG placement Tracheostomy Allergies/Adverse Reactions: Allergies No Known Allergies Allergy (Verified 05/30/18 22:08) Objective Vital Signs 09/22/18 13:29 09/22/18 13:46 09/22/18 13:51 Temperature 97.5 F L Pulse Rate 148 H Respiratory Rate 24 Blood Pressure 138/78 Pulse Oximetry 95 90 L 92 L 09/22/18 15:24 09/22/18 15:25 09/22/18 16:00 Temperature 96.9 F L Pulse Rate 113 H 160 H 120 H Respiratory Rate 22 Blood Pressure 145/70 H Pulse Oximetry 91 L 09/22/18 17:00 09/22/18 19:45 09/22/18 20:00 Temperature 97.4 F L Pulse Rate 108 H Respiratory Rate 20 19 Blood Pressure 128/72 Pulse Oximetry 99 95 09/23/18 04:00 09/23/18 07:43 09/23/18 08:00 Temperature 97.0 F L 98.4 F Pulse Rate 74 54 L 76 Respiratory Rate 19 12 Blood Pressure 153/80 H 118/89 Pulse Oximetry 98 98 09/23/18 08:59 09/23/18 09:16 Temperature Pulse Rate 83 Respiratory Rate 18 Blood Pressure Pulse Oximetry 100 100 Intake & Output 09/22/18 09/23/18 09/23/18 18:59 06:59 18:59 Intake Total 2500 / 2500 400 / 400 Output Total 3000 / 3000 Balance -500 / -500 400 / 400 Intake: IV 1300 / 1300 400 / 400 NS Inj 1,000 ML @ 84 mls/hr IV. 1000 / 1000 CONT .[id number] BECKY Rx#:[id number] Unasyn Inj 3 GM In NS Inj 100 200 / 200 200 / 200 ML @ 200 mls/hr IV.SIG Q6H BECKY Rx#:[id number] INVanz Inj 1,000 MG In NS Inj 100 / 100 100 ML @ 200 mls/hr IV.SIG Q24H BECKY Rx#:[id number] Diflucan 400 mg Premix Bag 200 200 / 200 ML @ 100 mls/hr IV.SIG Q24H BECKY Rx#:[id number] Oral 1200 / 1200 Output: Urine 3000 / 3000 Other: Date of Last Bowel Movement 09/22/18 09/22/18 09/23/18 # Bowel Movements 1 09/20/18 09:30 Abscess - Abdominal Gram Stain - Final 09/20/18 09:30 Abscess - Abdominal Wound Culture - Final Klebsiella pneumoniae ESBL pos Klebsiella pneumo. ESBL pos 2 Cripsin albicans Enterococcus faecium Lab - Hematology Results 09/22/18 07:56 WBC 9.6 RBC 4.05 Hgb 12.1 Hct 37.8 MCV 93.5 MCH 29.8 MCHC 31.9 L RDW 17.7 H Plt Count 245 MPV 6.9 L Prelim Diff (Auto) Slide review pending Neut % (Auto) 68.9 Lymph % (Auto) 22.1 [place] % (Auto) 6.1 Eos % (Auto) 2.4 Baso % (Auto) 0.5 Neut # (Auto) 6.6 Lymph # (Auto) 2.1 [place] # (Auto) 0.6 Eos # (Auto) 0.2 Baso # (Auto) 0.1 WBC Differential . Diff Scan Auto diff confirmed Differential Comment . Platelet Estimate Normal Platelet Morphology Normal Ovalocytes 1+ H Lab - Chemistry Results 09/21/18 09/22/18 09/22/18 16:23 07:53 07:55 Sodium 142 Potassium 3.7 Chloride 101 Carbon Dioxide 35.7 H Anion Gap 5 BUN 17 Creatinine 0.72 Estimated GFR 81 L POC Glucose 329 H 155 H Random Glucose 146 H Calcium 8.4 L Total Bilirubin 0.3 AST 13 L ALT 32 Alkaline Phosphatase 63 Total Protein 6.5 Albumin 2.5 L 09/22/18 09/22/18 09/22/18 13:34 18:43 22:21 Sodium Potassium Chloride Carbon Dioxide Anion Gap BUN Creatinine Estimated GFR POC Glucose 208 H 274 H 229 H Random Glucose Calcium Total Bilirubin AST ALT Alkaline Phosphatase Total Protein Albumin 09/23/18 09/23/18 06:33 08:15 Sodium Potassium Chloride Carbon Dioxide Anion Gap BUN Creatinine Estimated GFR POC Glucose 126 H 144 H Random Glucose Calcium Total Bilirubin AST ALT Alkaline Phosphatase Total Protein Albumin Imaging: ITS Impressions Videofluoroscopic Swallow 09/14/18 00:00 CONCLUSION: No evidence of penetration or aspiration. See full report by the speech pathologist. Abdomen/Pelvis CT 09/20/18 00:00 CONCLUSION: 1. No significant inflammation and induration around the patient's G-tube tract with a number of small soft tissue nodules medial to the tract could be additional areas of infection. There is no large drainable abscess just diffuse induration and small collections of soft tissue presumed infection. 2. Large fatty abdominal wall hernia in the left anterior abdomen. 3. Gallstones in a noninflamed gallbladder 4. Low-density but lobulated pelvic mass on the right. Need to rule out ovarian malignancy. Outpatient pelvic MRI is recommended Chest X-Ray 09/22/18 00:00 CONCLUSION: Small lung volumes. Mild pulmonary vascular congestion. Physical Exam: GENERAL: awake and alert, NAD, trach capped SKIN: Cool and dry. No generalized rash HEAD: Atraumatic. Normocephalic. No temporal wasting, or tenderness. EYES: [place] conjunctiva. No petechia or hemorrhage. No scleral icterus. No injection or drainage. EARS, NOSE AND THROAT: Mucous membranes pink and moist. No oral lesions noted. NECK: Previous trach site with dressing. CARDIOVASCULAR: No murmurs, rubs or gallops heard RESPIRATORY: Coarse breath sounds sully, with scattered wheezing ABDOMEN: Soft, obese, previous PEG site now with packing, redness gone, induration is better. Has reducible UH EXTREMITIES: No clubbing, cyanosis, or edema. No calf tenderness. NO evidence of infection in any of her toes NEUROLOGICAL: Non-focal PSYCHIATRIC: Normal affect, calm and cooperative. LINE: No evidence of infection Assessment and Plan - Plan Impression Bacteremia with Enterococcus, due to abdominal wall cellulitis from PEG malposition Abdominal wall cellulitis, abscess UTI Respiratory failure, S/P trach, has passey-david valve Hx possible osteo of toe R foot - currently no obvious evidence of infection Low grade temps, better - likely due to PEG site infection, better since the opening was made bigger and being drained and packed Recommendation Restart Zosyn - will cover the 2 Kleb and Enterococcus Stop IV Unasyn Stop Invanz Continue Diflucan Follow new C/S Follow temps Monitor progress
[2018-09-23] MEDS: Piperacil/Tazo 4.5 GM Premix 4.5 GM/100 ML BAG IV.SIG SCH ×2 (14:00→20:54)
--- NOTE | 2018-09-23 19:35 | P.PN ---
Subjective Interval history: Trach is out and she is doing well. No fever. On IV antibiotics per ID Physical Exam Vital signs: Vital Signs 09/22/18 19:45 09/22/18 20:00 09/23/18 04:00 Temperature 97.4 F L 97.0 F L Pulse Rate 108 H 74 Respiratory Rate 19 19 Blood Pressure 128/72 153/80 H Pulse Oximetry 99 95 98 09/23/18 07:43 09/23/18 08:00 09/23/18 08:59 Temperature 98.4 F Pulse Rate 54 L 76 83 Respiratory Rate 12 18 Blood Pressure 118/89 Pulse Oximetry 98 100 09/23/18 09:16 09/23/18 12:00 09/23/18 16:00 Temperature 98.4 F Pulse Rate 73 76 Respiratory Rate 14 Blood Pressure 124/82 Pulse Oximetry 100 96 98 Intake & Output 09/23/18 09/23/18 09/24/18 06:59 18:59 06:59 Intake Total 400 / 400 1100 / 1100 Output Total 1400 / 1400 Balance 400 / 400 -300 / -300 Intake: IV 400 / 400 Unasyn Inj 3 GM In NS Inj 100 200 / 200 ML @ 200 mls/hr IV.SIG Q6H BECKY Rx#:[id number] Diflucan 400 mg Premix Bag 200 200 / 200 ML @ 100 mls/hr IV.SIG Q24H BECKY Rx#:[id number] Oral 900 / 900 Other 200 / 200 Output: Urine 1400 / 1400 Other: Other Intake Source Saline Solution Date of Last Bowel Movement 09/22/18 09/23/18 Narrative: NAD GENERAL: Obese mid aged W/F alert SKIN: Warm and dry. HEAD: Normocephalic. EYES: No scleral icterus. No injection or drainage. NECK: Supple, trachea midline. No JVD or lymphadenopathy.Trach wound is healthy CARDIOVASCULAR: Regular rate and rhythm without murmurs, gallops, or rubs. RESPIRATORY: Breath sounds equal bilaterally. Occ wheeze .No accessory muscle use. GASTROINTESTINAL: Abdomen soft, non-tender, nondistended. MUSCULOSKELETAL: No cyanosis, or edema. BACK: Nontender without obvious deformity. No CVA tenderness. - Urinary Catheter Management Straight Cath placed during this visit: no Results - Labs CBC & Chem 7: 09/22/18 07:56 09/22/18 07:53 Laboratory Results - last 24 hr 11/01/18 11/02/18 11/02/18 22:21 06:33 08:15 PT INR POC Glucose 229 H 126 H 144 H 09/23/18 09/23/18 09/23/18 08:21 13:53 16:52 PT 16.0 H INR 1.6 POC Glucose 284 H 223 H Microbiology 09/20/18 09:30 Abscess - Abdominal Gram Stain - Final 09/20/18 09:30 Abscess - Abdominal Wound Culture - Final Klebsiella pneumoniae ESBL pos Klebsiella pneumo. ESBL pos 2 Grecia albicans Enterococcus faecium - Procedures PEG tube removed. Assessment and Plan - Assessment (1) Status post tracheostomy Code(s): Z93.0 - Tracheostomy status Status: Acute (2) Acute kidney injury Code(s): N17.9 - Acute kidney failure, unspecified Status: Acute (3) Acute UTI (urinary tract infection) Code(s): N39.0 - Urinary tract infection, site not specified Status: Acute (4) Hypoxia Code(s): R09.02 - Hypoxemia Status: Acute (5) SVT (supraventricular tachycardia) Code(s): I47.1 - Supraventricular tachycardia Status: Acute (6) Sepsis secondary to UTI Code(s): A41.9 - Sepsis, unspecified organism; N39.0 - Urinary tract infection, site not specified Status: Acute (7) Hypernatremia Code(s): E87.0 - Hyperosmolality and hypernatremia Status: Acute (8) Respiratory failure Code(s): J96.90 - Respiratory failure, unspecified, unspecified whether with hypoxia or hypercapnia Status: Acute - Plan 1. D/C Trach today 2. Clean and dress trach wound 3 Cont Antibiotics for Enterococcal sepsis. 4. IS q3h bedside 5. Cont Duoneb nebs qid. 6. PT evaluation 7. BMP CBC,
[2018-09-23] MEDS: Acetaminophen 325 MG Tablet PO PRN (20:54)
[2018-09-23] MEDS: LORazepam 1 MG Tablet PO PRN (20:54)
[2018-09-24] MEDS: Piperacil/Tazo 4.5 GM Premix 4.5 GM/100 ML BAG IV.SIG SCH ×4 (03:12→21:30)
[2018-09-24 07:33] LABS: INR 1.7 Ratio; Prothrombin Time 17.7 sec (9.8-11.6)
--- NOTE | 2018-09-24 08:47 | P.PN ---
Subjective Interval history: This is a pleasant 68 y/o Female with Depression, DM II, Hypertension, Hyperlipidemia, Morbid Obesity recently Hospitalized May 2018, UTI/Sepsis, she was discharged on tracheostomy and PEG tube. She returned to the emergency room on 09/13/18 with erythema and swelling around her PEG site and a partially displaced PEG tube. 09/24: Stable seen in her bedroom, no nausea,v omit or diarrhea, yesterday removed Tracheostomy tube. Physical Exam Vital signs: Vital Signs 09/23/18 08:59 09/23/18 09:16 09/23/18 12:00 Temperature Pulse Rate 83 73 Respiratory Rate 18 Blood Pressure Pulse Oximetry 100 100 96 09/23/18 16:00 09/23/18 20:00 09/24/18 00:00 Temperature 98.4 F 98.0 F 98.3 F Pulse Rate 76 90 75 Respiratory Rate 14 16 18 Blood Pressure 124/82 108/58 L 134/76 Pulse Oximetry 98 95 96 09/24/18 04:00 Temperature 98.5 F Pulse Rate 75 Respiratory Rate 18 Blood Pressure 133/72 Pulse Oximetry 98 Intake & Output 09/23/18 09/24/18 09/24/18 18:59 06:59 18:59 Intake Total 1200 / 1200 1460 / 1460 Output Total 1400 / 1400 300 / 300 Balance -200 / -200 1160 / 1160 Weight 120.9 kg Intake: IV 100 / 100 400 / 400 Diflucan 400 mg Premix Bag 200 200 / 200 ML @ 100 mls/hr IV.SIG Q24H BECKY Rx#:[id number] Zosyn 4.5 GM Premix 4.5 gm In 200 / 200 100 ml @ 200 mls/hr IV.SIG Q6H BECKY Rx#:[id number] Oral 900 / 900 250 / 250 Other 200 / 200 810 / 810 Output: Urine 1400 / 1400 300 / 300 Other: Other Intake Source Saline Solution Saline Solution Date of Last Bowel Movement 09/23/18 09/24/18 Narrative: GENERAL: Obese mid aged W/F alert SKIN: Warm and dry. HEAD: Normocephalic. EYES: No scleral icterus. No injection or drainage. NECK: Supple, trachea midline. No JVD or lymphadenopathy.Trach wound is healthy CARDIOVASCULAR: Regular rate and rhythm without murmurs, gallops, or rubs. RESPIRATORY: Breath sounds equal bilaterally. Occ wheeze .No accessory muscle use. GASTROINTESTINAL: Abdomen soft, non-tender, nondistended. MUSCULOSKELETAL: No cyanosis, or edema. BACK: Nontender without obvious deformity. No CVA tenderness. - Urinary Catheter Management Straight Cath placed during this visit: no Results - Labs CBC & Chem 7: 09/22/18 07:56 09/22/18 07:53 Laboratory Results - last 24 hr 09/23/18 09/23/18 09/23/18 08:21 13:53 16:52 PT 16.0 H INR 1.6 POC Glucose 284 H 223 H 09/23/18 09/24/18 20:53 06:20 PT 17.7 H INR 1.7 POC Glucose 255 H Microbiology 09/20/18 09:30 Abscess - Abdominal Gram Stain - Final 09/20/18 09:30 Abscess - Abdominal Wound Culture - Final Klebsiella pneumoniae ESBL pos Klebsiella pneumo. ESBL pos 2 Grecia albicans Enterococcus faecium - Imaging Videofluoroscopic Swallow 09/14/18 00:00 CONCLUSION: No evidence of penetration or aspiration. See full report by the speech pathologist. Abdomen/Pelvis CT 09/20/18 00:00 CONCLUSION: 1. No significant inflammation and induration around the patient's G-tube tract with a number of small soft tissue nodules medial to the tract could be additional areas of infection. There is no large drainable abscess just diffuse induration and small collections of soft tissue presumed infection. 2. Large fatty abdominal wall hernia in the left anterior abdomen. 3. Gallstones in a noninflamed gallbladder 4. Low-density but lobulated pelvic mass on the right. Need to rule out ovarian malignancy. Outpatient pelvic MRI is recommended Chest X-Ray 09/22/18 00:00 CONCLUSION: Small lung volumes. Mild pulmonary vascular congestion. - Procedures PEG tube removed. Assessment and Plan - Assessment (1) Tachycardia Code(s): R00.0 - Tachycardia, unspecified Status: Acute (2) Acute UTI (urinary tract infection) Code(s): N39.0 - Urinary tract infection, site not specified Status: Acute (3) Respiratory failure Code(s): J96.90 - Respiratory failure, unspecified, unspecified whether with hypoxia or hypercapnia Status: Acute (4) Complication of feeding tube Code(s): K94.23 - Gastrostomy malfunction Status: Acute - Plan This is a pleasant 68 y/o Female with Depression, DM II, Hypertension, Hyperlipidemia, Morbid Obesity recently Hospitalized May 2018, UTI/Sepsis, she was discharged on tracheostomy and PEG tube. She returned to the emergency room on 09/13/18 with erythema and swelling around her PEG site and a partially displaced PEG tube. PEG tube displacement, infection PEG tube was removed in the ED on 09/13, gastroenterology following Previously n.p.o., diet was advanced by speech and she is tolerating a diabetic diet PEG site became infected, E face examined faecalis, Grecia grew out (ESBL in urine) Re started on Zosyn, Stopped Unasyn and Invanz, Continue Diflucan, following Cultures and Sensitivity. I&D performed at bedside on 09/22/2018 Appreciate gastroenterology Appreciate general surgery consult with I&D Atrial fibrillation Warfarin held for procedure Heart rate was previously controlled with digoxin alone Cardiology added metoprolol 25 mg twice daily Patient's rate has returned to normal Appreciate cardiology consult Respiratory failure Trach placed 06/15/2018 Trach decannulated 09/23/18 Continuing bronchodilator, mucolytic, incentive spirometry. Sepsis Present on admission now resolved ESBL UTI Patient previously admitted for sepsis/UTI, previous culture also grew out Klebsiella and Grecia As above continue Invanz Diarrhea C. difficile negative Continue Lomotil as needed DVT prophylaxis Warfarin, INR currently 1.7 No changes to anterior assessment. Code Status: Full code. Discussed Condition With: Patient and Nurse Miss Suazo. Discharge Planning: Once cleared by specialists.
[2018-09-24] MEDS: Insulin NovoLOG Aspart Correctional Sugar Inj SQ SCH ×4 (09:00→21:00)
[2018-09-24] MEDS: Metoprolol Tartrate 25 MG Tablet PO SCH ×2 (09:00→21:30)
[2018-09-24] MEDS: Budesonide-Formoterol 160/4.5 MCG 6 GM Inhaler INH SCH ×2 (09:00→21:00)
[2018-09-24] MEDS: predniSONE 5 MG Tablet PO SCH (09:00)
[2018-09-24] MEDS: Digoxin 125 MCG Tablet PO SCH (09:00)
[2018-09-24] MEDS: Lactobacillus Acidophilus/L. Spores Tablet PO SCH ×3 (09:00→17:31)
[2018-09-24] MEDS: Insulin Detemir Inj 1,000 UNIT/10 ML Vial SQ SCH (21:00)
[2018-09-24] MEDS: LORazepam 1 MG Tablet PO PRN (22:24)
[2018-09-24] MEDS: Acetaminophen 325 MG Tablet PO PRN (22:25)
[2018-09-25] MEDS: Piperacil/Tazo 4.5 GM Premix 4.5 GM/100 ML BAG IV.SIG SCH ×4 (03:00→21:49)
[2018-09-25] MEDS: Insulin NovoLOG Aspart Correctional Sugar Inj SQ SCH ×4 (07:40→21:30)
[2018-09-25 08:14] LABS: Prothrombin Time 20.1 sec (9.8-11.6)
--- NOTE | 2018-09-25 09:15 | P.PN ---
Subjective Interval history: This is a pleasant 68 y/o Female with Depression, DM II, Hypertension, Hyperlipidemia, Morbid Obesity recently Hospitalized May 2018, UTI/Sepsis, she was discharged on tracheostomy and PEG tube. She returned to the emergency room on 09/13/18 with erythema and swelling around her PEG site and a partially displaced PEG tube. 09/24: Stable seen in her bedroom, no nausea, vomit or diarrhea, yesterday removed Tracheostomy tube. 09/25: Today better control of her blood sugars on long lasting Insulin, she was discussed with nurse Miss Borja and the patient has small erythematous area on her sacral region, was recommended for egg mattress no nausea, vomit or diarrhea. Physical Exam Vital signs: Vital Signs 09/24/18 12:00 09/24/18 16:00 09/24/18 18:04 Temperature 97.6 F 98 F Pulse Rate 75 99 H Respiratory Rate 20 22 Blood Pressure 130/80 118/78 Pulse Oximetry 96 96 09/24/18 20:00 09/24/18 21:10 09/25/18 00:00 Temperature 96.1 F L Pulse Rate 101 H 85 Respiratory Rate 22 22 Blood Pressure 173/93 H 112/74 Pulse Oximetry 96 09/25/18 04:00 09/25/18 08:00 Temperature Pulse Rate 80 63 Respiratory Rate Blood Pressure Pulse Oximetry Intake & Output 09/24/18 09/25/18 09/25/18 19:59 06:59 18:59 Intake Total Output Total Balance Weight Intake: IV Diflucan 400 mg Premix Bag 200 ML @ 100 mls/hr IV.SIG Q24H [facility] Rx#:[id number] Zosyn 4.5 GM Premix 4.5 gm In 100 ml @ 200 mls/hr IV.SIG Q6H [facility] Rx#:[id number] Oral Output: Urine Other: Date of Last Bowel Movement 09/25/18 # Bowel Movements Narrative: GENERAL: Obese patient, in no acute distress. SKIN: Warm and dry. HEAD: Normocephalic. EYES: No scleral icterus. No injection or drainage. NECK: Supple, trachea midline. No JVD or lymphadenopathy.Trach wound is healthy CARDIOVASCULAR: Regular rate and rhythm without murmurs, gallops, or rubs. RESPIRATORY: Breath sounds equal bilaterally. Occ wheeze .No accessory muscle use. GASTROINTESTINAL: Abdomen soft, non-tender, nondistended. dressed abdominal wall lesion. MUSCULOSKELETAL: No cyanosis, or edema. BACK: Nontender without obvious deformity. No CVA tenderness. - Urinary Catheter Management Straight Cath placed during this visit: no Results - Labs CBC & Chem 7: 09/22/18 07:56 09/22/18 07:53 Laboratory Results - last 24 hr 09/24/18 09/24/18 09/24/18 11:06 13:44 18:32 PT INR POC Glucose 146 H 236 H 164 H 09/24/18 09/25/18 09/25/18 21:50 07:06 07:25 PT 20.1 H INR 2.0 POC Glucose 264 H 121 H - Imaging Videofluoroscopic Swallow 09/14/18 00:00 CONCLUSION: No evidence of penetration or aspiration. See full report by the speech pathologist. Abdomen/Pelvis CT 09/20/18 00:00 CONCLUSION: 1. No significant inflammation and induration around the patient's G-tube tract with a number of small soft tissue nodules medial to the tract could be additional areas of infection. There is no large drainable abscess just diffuse induration and small collections of soft tissue presumed infection. 2. Large fatty abdominal wall hernia in the left anterior abdomen. 3. Gallstones in a noninflamed gallbladder 4. Low-density but lobulated pelvic mass on the right. Need to rule out ovarian malignancy. Outpatient pelvic MRI is recommended Chest X-Ray 09/22/18 00:00 CONCLUSION: Small lung volumes. Mild pulmonary vascular congestion. - Procedures PEG tube removed. Tracheostomy tube removed. Status post Abdominal Wall I and D. Assessment and Plan - Assessment (1) Tachycardia Code(s): R00.0 - Tachycardia, unspecified Status: Acute (2) Acute UTI (urinary tract infection) Code(s): N39.0 - Urinary tract infection, site not specified Status: Acute (3) Respiratory failure Code(s): J96.90 - Respiratory failure, unspecified, unspecified whether with hypoxia or hypercapnia Status: Acute (4) Complication of feeding tube Code(s): K94.23 - Gastrostomy malfunction Status: Acute - Plan This is a pleasant 68 y/o Female with Depression, DM II, Hypertension, Hyperlipidemia, Morbid Obesity recently Hospitalized May 2018, UTI/Sepsis, she was discharged on tracheostomy and PEG tube. She returned to the emergency room on 09/13/18 with erythema and swelling around her PEG site and a partially displaced PEG tube. PEG tube displacement, infection PEG tube was removed in the ED on 09/13, gastroenterology following Previously n.p.o., diet was advanced by speech and she is tolerating a diabetic diet PEG site became infected, E face examined faecalis, Grecia grew out (ESBL in urine) Re started on Zosyn, Stopped Unasyn and Invanz, Continue Diflucan, following Cultures and Sensitivity. I&D performed at bedside on 09/22/2018 Appreciate gastroenterology Appreciate general surgery consult with I&D Atrial fibrillation Warfarin held for procedure Heart rate was previously controlled with digoxin alone Cardiology added metoprolol 25 mg twice daily Patient's rate has returned to normal Appreciate cardiology consult Sacral erythema ordered for Egg Mattress. Respiratory failure Trach placed 06/15/2018 Trach decannulated 09/23/18 Continuing bronchodilator, mucolytic, incentive spirometry. Sepsis Present on admission now resolved ESBL UTI Patient previously admitted for sepsis/UTI, previous culture also grew out Klebsiella and Grecia As above continue Invanz Diarrhea C. difficile negative Continue Lomotil as needed Diabetes Mellitus II Continue Levemir 5 units BID started yesterday, and following on sliding scale. Hemoglobin A1C 6.6. Probable started as Steroid associated Hyperglycemia must follow closely to remove insulin depend of her clinical course. DVT prophylaxis Warfarin, INR currently 2 pharmacy following. Code Status: Full code. Discussed Condition With: Patient and Nurse Miss Borja. Discharge Planning: Once cleared by specialists.
[2018-09-25] MEDS: Digoxin 125 MCG Tablet PO SCH (09:44)
[2018-09-25] MEDS: Diphenoxylate/Atropine 2.5/0.025 MG Tablet PO PRN (09:44)
[2018-09-25] MEDS: Lactobacillus Acidophilus/L. Spores Tablet PO SCH ×3 (09:44→18:59)
[2018-09-25] MEDS: predniSONE 5 MG Tablet PO SCH (09:44)
[2018-09-25] MEDS: Metoprolol Tartrate 25 MG Tablet PO SCH ×2 (09:44→21:30)
[2018-09-25] MEDS: Insulin Detemir Inj 1,000 UNIT/10 ML Vial SQ SCH ×2 (09:45→21:30)
[2018-09-25] MEDS: Budesonide-Formoterol 160/4.5 MCG 6 GM Inhaler INH SCH ×2 (09:50→21:30)
[2018-09-25] MEDS: LORazepam 1 MG Tablet PO PRN (22:03)
[2018-09-25] MEDS: Acetaminophen 325 MG Tablet PO PRN (22:03)
[2018-09-26 00:12] LABS: Calcium 8.3 mg/dL (8.5-10.1); Carbon Dioxide 27.6 meq/L (21.0-32.0); Magnesium 1.8 mg/dL (1.5-2.5); Potassium 4.9 meq/L (3.5-5.1)
[2018-09-26] MEDS: Sod Chloride 0.9% Inj 1,000 ML IV.CONT SCH ×2 (01:20→13:09)
[2018-09-26] MEDS: Piperacil/Tazo 4.5 GM Premix 4.5 GM/100 ML BAG IV.SIG SCH ×4 (03:30→22:18)
[2018-09-26] MEDS: Acetaminophen 325 MG Tablet PO PRN ×2 (03:55→21:05)
[2018-09-26] MEDS: predniSONE 5 MG Tablet PO SCH (09:42)
[2018-09-26] MEDS: Metoprolol Tartrate 25 MG Tablet PO SCH ×2 (09:42→22:17)
[2018-09-26] MEDS: Lactobacillus Acidophilus/L. Spores Tablet PO SCH ×3 (09:42→17:13)
[2018-09-26] MEDS: Digoxin 125 MCG Tablet PO SCH (09:43)
[2018-09-26] MEDS: Budesonide-Formoterol 160/4.5 MCG 6 GM Inhaler INH SCH ×2 (09:43→22:17)
[2018-09-26] MEDS: Diphenoxylate/Atropine 2.5/0.025 MG Tablet PO PRN (09:43)
[2018-09-26] MEDS: Insulin Detemir Inj 1,000 UNIT/10 ML Vial SQ SCH ×2 (09:44→22:16)
[2018-09-26] MEDS: Insulin NovoLOG Aspart Correctional Sugar Inj SQ SCH ×4 (09:52→22:20)
--- NOTE | 2018-09-26 10:21 | P.PN ---
Subjective Interval history: This is a pleasant 68 y/o Female with Depression, DM II, Hypertension, Hyperlipidemia, Morbid Obesity recently Hospitalized May 2018, UTI/Sepsis, she was discharged on tracheostomy and PEG tube. She returned to the emergency room on 09/13/18 with erythema and swelling around her PEG site and a partially displaced PEG tube. 09/24: Stable seen in her bedroom, no nausea, vomit or diarrhea, yesterday removed Tracheostomy tube. 09/25: Today better control of her blood sugars on long lasting Insulin, she was discussed with nurse Miss Borja and the patient has small erythematous area on her sacral region, was recommended for egg mattress 09/26: Improving her drainage continue with wet to dry dressing, no nausea, vomit or diarrhea. Physical Exam Vital signs: Vital Signs 09/25/18 12:00 09/25/18 16:00 09/25/18 16:33 Temperature 97.4 F L 97.3 F L Pulse Rate 55 L 56 L 48 L Respiratory Rate 20 20 Blood Pressure 130/66 127/74 Pulse Oximetry 91 L 92 L 09/25/18 20:00 09/25/18 22:37 09/25/18 22:57 Temperature 96.6 F L Pulse Rate 48 L 44 L Respiratory Rate 20 20 Blood Pressure 173/83 H 136/65 Pulse Oximetry 97 95 99 09/26/18 00:00 09/26/18 04:00 Temperature 97 F L Pulse Rate 48 L 50 L Respiratory Rate 20 Blood Pressure 132/65 Pulse Oximetry 100 Intake & Output 09/25/18 09/26/18 09/26/18 18:59 06:59 18:59 Intake Total 1100 / 1100 1175 / 1175 Output Total 750 / 750 650 / 650 Balance 350 / 350 525 / 525 Weight 120.9 kg Intake: IV 100 / 100 300 / 300 Zosyn 4.5 GM Premix 4.5 gm In 100 / 100 300 / 300 100 ml @ 200 mls/hr IV.SIG Q6H [facility] Rx#:[id number] Oral 1000 / 1000 100 / 100 Other 775 / 775 Output: Urine 750 / 750 650 / 650 Other: Other Intake Source Saline Solution Date of Last Bowel Movement 09/25/18 09/25/18 # Bowel Movements 4 Narrative: GENERAL: Obese patient, in no acute distress. SKIN: Warm and dry. HEAD: Normocephalic. EYES: No scleral icterus. No injection or drainage. NECK: Supple, trachea midline. No JVD or lymphadenopathy.Trach wound is healthy CARDIOVASCULAR: Regular rate and rhythm without murmurs, gallops, or rubs. RESPIRATORY: Breath sounds equal bilaterally. Occ wheeze .No accessory muscle use. GASTROINTESTINAL: Abdomen soft, non-tender, nondistended. dressed abdominal wall lesion. MUSCULOSKELETAL: No cyanosis, or edema. BACK: Nontender without obvious deformity. No CVA tenderness. - Urinary Catheter Management Straight Cath placed during this visit: no Results - Labs CBC & Chem 7: 09/22/18 07:56 09/25/18 23:34 Laboratory Results - last 24 hr 09/25/18 09/25/18 09/25/18 13:19 18:47 20:57 PT INR Sodium Potassium Chloride Carbon Dioxide Anion Gap BUN Creatinine Estimated GFR POC Glucose 171 H 230 H 199 H Random Glucose Calcium Magnesium 09/25/18 09/26/18 09/26/18 23:34 06:26 09:50 PT 20.0 H INR 2.0 Sodium 137 Potassium 4.9 Chloride 102 Carbon Dioxide 27.6 Anion Gap 7 BUN 29 H Creatinine 1.17 H Estimated GFR 46 L POC Glucose 110 Random Glucose 147 H Calcium 8.3 L Magnesium 1.8 - Imaging Videofluoroscopic Swallow 09/14/18 00:00 CONCLUSION: No evidence of penetration or aspiration. See full report by the speech pathologist. Abdomen/Pelvis CT 09/20/18 00:00 CONCLUSION: 1. No significant inflammation and induration around the patient's G-tube tract with a number of small soft tissue nodules medial to the tract could be additional areas of infection. There is no large drainable abscess just diffuse induration and small collections of soft tissue presumed infection. 2. Large fatty abdominal wall hernia in the left anterior abdomen. 3. Gallstones in a noninflamed gallbladder 4. Low-density but lobulated pelvic mass on the right. Need to rule out ovarian malignancy. Outpatient pelvic MRI is recommended Chest X-Ray 09/22/18 00:00 CONCLUSION: Small lung volumes. Mild pulmonary vascular congestion. - Procedures PEG tube removed. Tracheostomy tube removed. Status post Abdominal Wall I and D. Assessment and Plan - Assessment (1) Tachycardia Code(s): R00.0 - Tachycardia, unspecified Status: Acute (2) Acute UTI (urinary tract infection) Code(s): N39.0 - Urinary tract infection, site not specified Status: Acute (3) Respiratory failure Code(s): J96.90 - Respiratory failure, unspecified, unspecified whether with hypoxia or hypercapnia Status: Acute (4) Complication of feeding tube Code(s): K94.23 - Gastrostomy malfunction Status: Acute - Plan This is a pleasant 68 y/o Female with Depression, DM II, Hypertension, Hyperlipidemia, Morbid Obesity recently Hospitalized May 2018, UTI/Sepsis, she was discharged on tracheostomy and PEG tube. She returned to the emergency room on 09/13/18 with erythema and swelling around her PEG site and a partially displaced PEG tube. PEG tube displacement, infection PEG tube was removed in the ED on 09/13, gastroenterology following Previously n.p.o., diet was advanced by speech and she is tolerating a diabetic diet PEG site became infected, E face examined faecalis, Grecia grew out (ESBL in urine) Re started on Zosyn, Stopped Unasyn and Invanz, Continue Diflucan, following Cultures and Sensitivity. I&D performed at bedside on 09/22/2018 Appreciate gastroenterology Appreciate general surgery consult with I&D Atrial fibrillation Continue Warfarin today INR 2 Heart rate was previously controlled with digoxin alone Cardiology added metoprolol 25 mg twice daily Patient's rate has returned to normal Appreciate cardiology consult Sacral erythema ordered for Egg Mattress. Respiratory failure Trach placed 06/15/2018 Trach decannulated 09/23/18 Continuing bronchodilator, mucolytic, incentive spirometry. Sepsis Present on admission now resolved ESBL UTI Patient previously admitted for sepsis/UTI, previous culture also grew out Klebsiella and Grecia As above continue Invanz Diarrhea C. difficile negative Continue Lomotil as needed Diabetes Mellitus II Continue Levemir 8 units BID. DVT prophylaxis Warfarin, INR currently 2 pharmacy following. Code Status: Full code. Discussed Condition With: patient and Nurse Miss Gerber. Discharge Planning: Once cleared by specialists.
[2018-09-26] MEDS: Magnesium Oxide 400 MG Tablet PO SCH (12:56)
--- NOTE | 2018-09-26 19:00 | P.PN ---
Subjective Interval history: Alert and has no SOB at rest. Trach site has healed. On Antibiotics per ID Physical Exam Vital signs: Vital Signs 09/25/18 20:00 09/25/18 22:37 09/25/18 22:57 Temperature 96.6 F L Pulse Rate 48 L 44 L Respiratory Rate 20 20 Blood Pressure 173/83 H 136/65 Pulse Oximetry 97 95 99 09/26/18 00:00 09/26/18 04:00 09/26/18 08:00 Temperature 97 F L 98.4 F Pulse Rate 48 L 50 L 78 Respiratory Rate 20 14 Blood Pressure 132/65 124/87 Pulse Oximetry 100 98 09/26/18 11:36 09/26/18 12:00 09/26/18 15:43 Temperature 96.9 F L Pulse Rate 76 48 L 98 H Respiratory Rate 14 Blood Pressure 146/67 H Pulse Oximetry 98 09/26/18 16:00 Temperature 96.8 F L Pulse Rate 48 L Respiratory Rate 14 Blood Pressure 143/65 H Pulse Oximetry 98 Intake & Output 09/25/18 09/26/18 09/26/18 18:59 06:59 18:59 Intake Total 1100 / 1100 1175 / 1175 1600 / 1600 Output Total 750 / 750 650 / 650 900 / 900 Balance 350 / 350 525 / 525 700 / 700 Weight 120.9 kg Intake: IV 100 / 100 300 / 300 1100 / 1100 NS Inj 1,000 ML @ 75 mls/hr IV. 1000 / 1000 CONT .[id number] [facility] Rx#:[id number] Zosyn 4.5 GM Premix 4.5 gm In 100 / 100 300 / 300 100 / 100 100 ml @ 200 mls/hr IV.SIG Q6H [facility] Rx#:[id number] Oral 1000 / 1000 100 / 100 500 / 500 Other 775 / 775 Output: Urine 750 / 750 650 / 650 900 / 900 Other: Other Intake Source Saline Solution Date of Last Bowel Movement 09/25/18 09/25/18 09/26/18 # Bowel Movements 4 2 Narrative: GENERAL: Obese W/F patient, in no acute distress. SKIN: Warm and dry. HEAD: Normocephalic. EYES: No scleral icterus. No injection or drainage. NECK: Supple, trachea midline. No JVD or lymphadenopathy.Trach wound is healthy CARDIOVASCULAR: Regular rate and rhythm without murmurs, gallops, or rubs. RESPIRATORY: Breath sounds equal bilaterally. Occ wheeze .No accessory muscle use. GASTROINTESTINAL: Abdomen soft, non-tender,BS + nondistended. dressed abdominal wall lesion. MUSCULOSKELETAL: No cyanosis, or edema. BACK: Nontender without obvious deformity. No CVA tenderness. - Urinary Catheter Management Straight Cath placed during this visit: no Results - Labs CBC & Chem 7: 09/22/18 07:56 09/25/18 23:34 Laboratory Results - last 24 hr 09/25/18 09/25/18 09/26/18 20:57 23:34 06:26 PT 20.0 H INR 2.0 Sodium 137 Potassium 4.9 Chloride 102 Carbon Dioxide 27.6 Anion Gap 7 BUN 29 H Creatinine 1.17 H Estimated GFR 46 L POC Glucose 199 H Random Glucose 147 H Calcium 8.3 L Magnesium 1.8 09/26/18 09/26/18 09/26/18 09:50 13:00 16:39 PT INR Sodium Potassium Chloride Carbon Dioxide Anion Gap BUN Creatinine Estimated GFR POC Glucose 110 217 H 208 H Random Glucose Calcium Magnesium - Procedures PEG tube removed. Tracheostomy tube removed. Status post Abdominal Wall I and D. Assessment and Plan - Assessment (1) Status post tracheostomy Code(s): Z93.0 - Tracheostomy status Status: Acute (2) Acute kidney injury Code(s): N17.9 - Acute kidney failure, unspecified Status: Acute (3) Acute UTI (urinary tract infection) Code(s): N39.0 - Urinary tract infection, site not specified Status: Acute (4) Hypoxia Code(s): R09.02 - Hypoxemia Status: Acute (5) SVT (supraventricular tachycardia) Code(s): I47.1 - Supraventricular tachycardia Status: Acute (6) Sepsis secondary to UTI Code(s): A41.9 - Sepsis, unspecified organism; N39.0 - Urinary tract infection, site not specified Status: Acute (7) Hypernatremia Code(s): E87.0 - Hyperosmolality and hypernatremia Status: Acute (8) Respiratory failure Code(s): J96.90 - Respiratory failure, unspecified, unspecified whether with hypoxia or hypercapnia Status: Acute - Plan 1. Clean and dress trach site 2. Chest Xray in am 3 Cont Antibiotics Per ID 4. IS q3h bedside 5. Cont Duoneb nebs qid. 6. PT evaluation
[2018-09-26] MEDS: LORazepam 1 MG Tablet PO PRN (21:05)
[2018-09-27] MEDS: Sod Chloride 0.9% Inj 1,000 ML IV.CONT SCH (03:58)
[2018-09-27] MEDS: Piperacil/Tazo 4.5 GM Premix 4.5 GM/100 ML BAG IV.SIG SCH ×4 (04:00→21:19)
--- NOTE | 2018-09-27 06:47 | XR ---
EXAM DATE: 09/27/2018 6:43 AM EST AGE/SEX: 68 years / Female INDICATIONS: Short of breath, evaluate infiltrate CLINICAL DATA: This is the patient's subsequent encounter. Patient reports that signs and symptoms h ave been present for 1 week and indicates a pain score of Nonresponsive. MEDICAL/SURGICAL HISTORY: Hypertension. Diabetes. . tracheostomy COMPARISON: [facility] [place], CHEST 1V SINGLE AP, 09/22/2018. . FINDINGS: A single AP view of the chest demonstrates the lungs to be symmetrically aerated without evidence of mass, infiltrate or effusion. The cardiomediastinal contours are unremarkable. Osseous structures a re intact. CONCLUSION: No acute disease Electronically signed by: Tone Jeffery MD 09/27/2018 6:46 AM EST
[2018-09-27] MEDS: Insulin NovoLOG Aspart Correctional Sugar Inj SQ SCH ×4 (08:00→21:17)
[2018-09-27] MEDS: predniSONE 5 MG Tablet PO SCH (08:25)
[2018-09-27] MEDS: Metoprolol Tartrate 25 MG Tablet PO SCH ×3 (08:26→20:19)
[2018-09-27] MEDS: Magnesium Oxide 400 MG Tablet PO SCH (08:26)
[2018-09-27] MEDS: Digoxin 125 MCG Tablet PO SCH ×2 (08:26→09:21)
[2018-09-27] MEDS: Lactobacillus Acidophilus/L. Spores Tablet PO SCH ×3 (08:26→17:23)
[2018-09-27] MEDS: Budesonide-Formoterol 160/4.5 MCG 6 GM Inhaler INH SCH ×2 (08:27→21:17)
[2018-09-27 08:59] LABS: INR 2.1 Ratio; Prothrombin Time 21.4 sec (9.8-11.6)
[2018-09-27 09:21] LABS: Calcium 8.6 mg/dL (8.5-10.1); Carbon Dioxide 30.3 meq/L (21.0-32.0); Potassium 4.1 meq/L (3.5-5.1)
[2018-09-27] MEDS: Insulin Detemir Inj 1,000 UNIT/10 ML Vial SQ SCH ×2 (09:43→21:16)
--- NOTE | 2018-09-27 14:04 | P.PN ---
Subjective Interval history: Patient is seen lying quietly in bed. Sleeping but wakes easily. Trach site well-healed. Nursing reports low blood sugar this morning Physical Exam Vital signs: Vital Signs 09/26/18 15:43 09/26/18 16:00 09/26/18 20:00 Temperature 96.8 F L 97.2 F L Pulse Rate 98 H 48 L 46 L Respiratory Rate 14 Blood Pressure 143/65 H 129/64 Pulse Oximetry 98 99 09/27/18 00:00 09/27/18 04:00 09/27/18 08:00 Temperature 97 F L 98.0 F Pulse Rate 51 L 45 L 44 L Respiratory Rate 18 18 18 Blood Pressure 163/76 H 158/62 H 144/84 H Pulse Oximetry 98 98 99 Intake & Output 09/26/18 09/27/18 09/27/18 18:59 06:59 18:59 Intake Total 1600 / 1600 1500 / 1500 100 / 100 Output Total 900 / 900 1000 / 1000 Balance 700 / 700 500 / 500 100 / 100 Weight 120.9 kg Intake: IV 1100 / 1100 1500 / 1500 100 / 100 NS Inj 1,000 ML @ 75 mls/hr IV. 1000 / 1000 1000 / 1000 CONT .[id number] [facility] Rx#:[id number] Diflucan 400 mg Premix Bag 200 200 / 200 ML @ 100 mls/hr IV.SIG Q24H [facility] Rx#:[id number] Zosyn 4.5 GM Premix 4.5 gm In 100 / 100 300 / 300 100 / 100 100 ml @ 200 mls/hr IV.SIG Q6H [facility]KY Rx#:[id number] Oral 500 / 500 Output: Urine 900 / 900 1000 / 1000 Other: Date of Last Bowel Movement 09/26/18 09/27/18 # Bowel Movements 2 Narrative: GENERAL: Obese adult female, in no acute distress. SKIN: Warm and dry. HEAD: Normocephalic. EYES: No scleral icterus. No injection or drainage. NECK: Supple, trachea midline. No JVD or lymphadenopathy.Trach wound is healing well. CARDIOVASCULAR: Regular rate and rhythm. RESPIRATORY: Breath sounds equal bilaterally. Mild wheezes.No accessory muscle use. GASTROINTESTINAL: Abdomen soft, non-tender,BS + nondistended. dressed abdominal wall lesion. MUSCULOSKELETAL: No cyanosis, or edema. - Urinary Catheter Management Straight Cath placed during this visit: no Results - Labs CBC & Chem 7: 09/22/18 07:56 09/27/18 07:35 Laboratory Results - last 24 hr 09/26/18 09/26/18 09/27/18 16:39 20:56 07:35 PT INR Sodium 142 Potassium 4.1 D Chloride 105 Carbon Dioxide 30.3 Anion Gap 7 BUN 22 H Creatinine 0.82 Estimated GFR 69 L POC Glucose 208 H 160 H Random Glucose 89 Calcium 8.6 09/27/18 09/27/18 07:35 13:42 PT 21.4 H INR 2.1 Sodium Potassium Chloride Carbon Dioxide Anion Gap BUN Creatinine Estimated GFR POC Glucose 193 H Random Glucose Calcium - Imaging Impressions Chest X-Ray 09/27/18 00:00 CONCLUSION: No acute disease - Procedures PEG tube removed. Tracheostomy tube removed. Status post Abdominal Wall I and D. Assessment and Plan - Assessment (1) Tachycardia Code(s): R00.0 - Tachycardia, unspecified Status: Acute (2) Acute UTI (urinary tract infection) Code(s): N39.0 - Urinary tract infection, site not specified Status: Acute (3) Respiratory failure Code(s): J96.90 - Respiratory failure, unspecified, unspecified whether with hypoxia or hypercapnia Status: Acute (4) Complication of feeding tube Code(s): K94.23 - Gastrostomy malfunction Status: Acute - Plan This is a pleasant 68 y/o Female with Depression, DM II, Hypertension, Hyperlipidemia, Morbid Obesity recently Hospitalized May 2018, UTI/Sepsis, she was discharged on tracheostomy and PEG tube. She returned to the emergency room on 09/13/18 with erythema and swelling around her PEG site and a partially displaced PEG tube. PEG tube displacement, infection PEG tube was removed in the ED on 09/13, gastroenterology following Previously n.p.o., diet was advanced by speech and she is tolerating a diabetic diet PEG site became infected, Grecia grew out (ESBL in urine) Re started on Zosyn, Stopped Unasyn and Invanz, Continue Diflucan, following Cultures and Sensitivity. I&D performed at bedside on 09/22/2018 Appreciate gastroenterology Appreciate general surgery consult with I&D Atrial fibrillation Continue Warfarin; monitor INR Heart rate was previously controlled with digoxin alone Cardiology added metoprolol 25 mg twice daily Patient's rate has returned to normal Appreciate cardiology consult Sacral erythema ordered for Egg Mattress. Respiratory failure Trach placed 06/15/2018 Trach decannulated 09/23/18 Continuing bronchodilator, mucolytic, incentive spirometry. Sepsis Present on admission now resolved ESBL UTI Patient previously admitted for sepsis/UTI, previous culture also grew out Klebsiella and Grecia As above continue Invanz Diarrhea C. difficile negative Continue Lomotil as needed Diabetes Mellitus II Episode of mildly low blood sugar 09/27; continue Levemir 8 units BID -monitor for trend. DVT prophylaxis Warfarin, INR currently 2 pharmacy following. Code Status: Full code. Discussed Condition With: Patient and nurse Discharge Planning: Once cleared by specialists.
--- NOTE | 2018-09-27 16:35 | P.PNID ---
Subjective Remarks: Patient is a 68-year-old female, brought into the hospital for evaluation of her PEG tube. Patient was hospitalized here back in May and at that time she was treated for sepsis. She had a UTI, and also had what looks like an infection on 1 of her toes on the right foot. She ended up on the respirator, and has required continued ventilatory support, requiring tracheostomy. She also had a PEG tube placed at that time. She was discharged to [facility] towards the end of May, and apparently she was discharged around the second week in August and has been at home. Patient gets tube feedings 24 hours a day, and she still is able to eat some. She has a Passy- David valve on her trach. She stays mostly in bed, and sometimes dangles at the side of the bed, and she could stand up but does not really do any ambulation. Recently apparently she has been having problem with leaking around the PEG tube. She was also noted to have some swelling around the PEG tube site. She presented to the hospital, and she had a fever of 100.9. Her white count is elevated at 14,000. She had a CT of the abdomen and pelvis which did not show any evidence of intra-abdominal abscess, but it shows that the PEG is almost out with some debris along the PEG tube tract and some into the peritoneal cavity. The PEG was removed in the ED. She had a swallowing eval with no evidence of aspiration. Patient currently is on a T-piece. She denies any shortness of breath. Her abdominal pain is better. She is awake and alert. Her temperatures are better. BP is stable and she is not on any pressor support. 2 blood cultures were done in the ED and one blood culture is currently going growing enterococcus. Her chest x-ray is normal. Infectious disease consultation has been requested to evaluate the patient with positive blood culture. Notes reviewed D/W RN Temps ok Seems to have more purulent drainage from the open wound Not SOB Swallowing ok Doing well C/S with Kleb ESBL+, enterococcus and crispin albicans WBC normal Antibiotics: Zosyn Diflucan Lines: PIV Past Medical History: MDRO (multiple drug resistant organisms) resistance Onset Date: ~09/13/18 Depression Diabetes Hypertension Hypertriglyceridemia Morbid obesity Tubal ligation PEG placement Tracheostomy Allergies/Adverse Reactions: Allergies No Known Allergies Allergy (Verified 05/30/18 22:08) Objective Vital Signs 09/26/18 20:00 09/27/18 00:00 09/27/18 04:00 Temperature 97.2 F L 97 F L Pulse Rate 46 L 51 L 45 L Respiratory Rate 18 18 Blood Pressure 129/64 163/76 H 158/62 H Pulse Oximetry 99 98 98 09/27/18 08:00 09/27/18 12:00 09/27/18 16:00 Temperature 98.0 F 98.2 F 98.0 F Pulse Rate 44 L 90 64 Respiratory Rate 18 20 22 Blood Pressure 144/84 H 122/74 138/80 Pulse Oximetry 99 97 95 Intake & Output 09/26/18 09/27/18 09/27/18 18:59 06:59 18:59 Intake Total 1600 / 1600 1500 / 1500 900 / 900 Output Total 900 / 900 1000 / 1000 Balance 700 / 700 500 / 500 900 / 900 Weight 120.9 kg Intake: IV 1100 / 1100 1500 / 1500 900 / 900 NS Inj 1,000 ML @ 75 mls/hr IV. 1000 / 1000 1000 / 1000 800 / 800 CONT .[id number] BECKY Rx#:[id number] Diflucan 400 mg Premix Bag 200 200 / 200 ML @ 100 mls/hr IV.SIG Q24H BECKY Rx#:[id number] Zosyn 4.5 GM Premix 4.5 gm In 100 / 100 300 / 300 100 / 100 100 ml @ 200 mls/hr IV.SIG Q6H BECKY Rx#:[id number] Oral 500 / 500 Output: Urine 900 / 900 1000 / 1000 Other: Date of Last Bowel Movement 09/26/18 09/27/18 # Bowel Movements 2 Lab - Chemistry Results 09/25/18 09/25/18 09/25/18 18:47 20:57 23:34 Sodium 137 Potassium 4.9 Chloride 102 Carbon Dioxide 27.6 Anion Gap 7 BUN 29 H Creatinine 1.17 H Estimated GFR 46 L POC Glucose 230 H 199 H Random Glucose 147 H Calcium 8.3 L Magnesium 1.8 09/26/18 09/26/18 09/26/18 09:50 13:00 16:39 Sodium Potassium Chloride Carbon Dioxide Anion Gap BUN Creatinine Estimated GFR POC Glucose 110 217 H 208 H Random Glucose Calcium Magnesium 09/26/18 09/27/18 09/27/18 20:56 07:35 13:42 Sodium 142 Potassium 4.1 D Chloride 105 Carbon Dioxide 30.3 Anion Gap 7 BUN 22 H Creatinine 0.82 Estimated GFR 69 L POC Glucose 160 H 193 H Random Glucose 89 Calcium 8.6 Magnesium Imaging: ITS Impressions Videofluoroscopic Swallow 09/14/18 00:00 CONCLUSION: No evidence of penetration or aspiration. See full report by the speech pathologist. Abdomen/Pelvis CT 09/20/18 00:00 CONCLUSION: 1. No significant inflammation and induration around the patient's G-tube tract with a number of small soft tissue nodules medial to the tract could be additional areas of infection. There is no large drainable abscess just diffuse induration and small collections of soft tissue presumed infection. 2. Large fatty abdominal wall hernia in the left anterior abdomen. 3. Gallstones in a noninflamed gallbladder 4. Low-density but lobulated pelvic mass on the right. Need to rule out ovarian malignancy. Outpatient pelvic MRI is recommended Chest X-Ray 09/27/18 00:00 CONCLUSION: No acute disease Physical Exam: GENERAL: awake and alert, NAD, previous trach site opening getting smaller SKIN: Cool and dry. No generalized rash HEAD: Atraumatic. Normocephalic. No temporal wasting, or tenderness. EYES: [place] conjunctiva. No petechia or hemorrhage. No scleral icterus. No injection or drainage. EARS, NOSE AND THROAT: Mucous membranes pink and moist. No oral lesions noted. NECK: Previous trach site with dressing. CARDIOVASCULAR: No murmurs, rubs or gallops heard RESPIRATORY: Coarse breath sounds sully, with scattered wheezing ABDOMEN: Soft, obese, previous PEG site with packing, with purulent drainage, redness gone, induration is better. Has a fluctuant abscess below this. Has reducible UH EXTREMITIES: No clubbing, cyanosis, or edema. No calf tenderness. NEUROLOGICAL: Non-focal PSYCHIATRIC: Normal affect, calm and cooperative. LINE: No evidence of infection Assessment and Plan - Plan Impression Bacteremia with Enterococcus, due to abdominal wall cellulitis from PEG malposition Abdominal wall cellulitis, abscess Seems to have another abscess below the open wound UTI Respiratory failure, S/P trach, has passey-david valve Hx possible osteo of toe R foot - currently no obvious evidence of infection Low grade temps, better - likely due to PEG site infection, better since the opening was made bigger and being drained and packed Recommendation Continue Zosyn - will cover the 2 Kleb and Enterococcus Continue Diflucan Will ask surgery to reevaluate the new abscess Follow temps Monitor progress D/W RN Explained plan to the patient
--- NOTE | 2018-09-27 17:46 | P.PN ---
Subjective Interval history: Was SOB earlier but better now. On O2 2 L. Chest Xray was clear. On Antibiotics for Sepsis with cellulitis. Physical Exam Vital signs: Vital Signs 09/26/18 20:00 09/27/18 00:00 09/27/18 04:00 Temperature 97.2 F L 97 F L Pulse Rate 46 L 51 L 45 L Respiratory Rate 18 18 Blood Pressure 129/64 163/76 H 158/62 H Pulse Oximetry 99 98 98 09/27/18 08:00 09/27/18 12:00 09/27/18 16:00 Temperature 98.0 F 98.2 F 98.0 F Pulse Rate 44 L 90 64 Respiratory Rate 18 20 22 Blood Pressure 144/84 H 122/74 138/80 Pulse Oximetry 99 97 95 09/27/18 16:38 Temperature Pulse Rate Respiratory Rate Blood Pressure Pulse Oximetry 97 Intake & Output 09/26/18 09/27/18 09/27/18 18:59 06:59 18:59 Intake Total 1600 / 1600 1500 / 1500 900 / 900 Output Total 900 / 900 1000 / 1000 1000 / 1000 Balance 700 / 700 500 / 500 -100 / -100 Weight 120.9 kg Intake: IV 1100 / 1100 1500 / 1500 900 / 900 NS Inj 1,000 ML @ 75 mls/hr IV. 1000 / 1000 1000 / 1000 800 / 800 CONT .[id number] BECKY Rx#:[id number] Diflucan 400 mg Premix Bag 200 200 / 200 ML @ 100 mls/hr IV.SIG Q24H BECKY Rx#:[id number] Zosyn 4.5 GM Premix 4.5 gm In 100 / 100 300 / 300 100 / 100 100 ml @ 200 mls/hr IV.SIG Q6H BECKY Rx#:[id number] Oral 500 / 500 Output: Urine 900 / 900 1000 / 1000 1000 / 1000 Other: Date of Last Bowel Movement 09/26/18 09/27/18 # Bowel Movements 2 3 Narrative: GENERAL: Obese adult female, in no acute distress.Shallow breathing. SKIN: Warm and dry. HEAD: Normocephalic. EYES: No scleral icterus. No injection or drainage. NECK: Supple, trachea midline. No JVD or lymphadenopathy.Trach wound is healing well. CARDIOVASCULAR: Regular rate and rhythm. RESPIRATORY: Breath sounds equal bilaterally. Mild wheezes. No accessory muscle use. GASTROINTESTINAL: Abdomen soft, non-tender,BS + nondistended. dressed abdominal wall lesion. MUSCULOSKELETAL: No cyanosis, or edema. - Urinary Catheter Management Straight Cath placed during this visit: no Results - Labs CBC & Chem 7: 09/22/18 07:56 09/27/18 07:35 Laboratory Results - last 24 hr 09/26/18 09/27/18 09/27/18 20:56 07:35 07:35 PT 21.4 H INR 2.1 Sodium 142 Potassium 4.1 D Chloride 105 Carbon Dioxide 30.3 Anion Gap 7 BUN 22 H Creatinine 0.82 Estimated GFR 69 L POC Glucose 160 H Random Glucose 89 Calcium 8.6 09/27/18 13:42 PT INR Sodium Potassium Chloride Carbon Dioxide Anion Gap BUN Creatinine Estimated GFR POC Glucose 193 H Random Glucose Calcium - Imaging Impressions Chest X-Ray 09/27/18 00:00 CONCLUSION: No acute disease - Procedures PEG tube removed. Tracheostomy tube removed. Status post Abdominal Wall I and D. Assessment and Plan - Assessment (1) Status post tracheostomy Code(s): Z93.0 - Tracheostomy status Status: Acute (2) Acute kidney injury Code(s): N17.9 - Acute kidney failure, unspecified Status: Acute (3) Acute UTI (urinary tract infection) Code(s): N39.0 - Urinary tract infection, site not specified Status: Acute (4) Hypoxia Code(s): R09.02 - Hypoxemia Status: Acute (5) SVT (supraventricular tachycardia) Code(s): I47.1 - Supraventricular tachycardia Status: Acute (6) Sepsis secondary to UTI Code(s): A41.9 - Sepsis, unspecified organism; N39.0 - Urinary tract infection, site not specified Status: Acute (7) Hypernatremia Code(s): E87.0 - Hyperosmolality and hypernatremia Status: Acute (8) Respiratory failure Code(s): J96.90 - Respiratory failure, unspecified, unspecified whether with hypoxia or hypercapnia Status: Acute - Plan 1. CBC,BMP in am. 2. Up in chair as tolerated 3 Cont Antibiotics Per ID 4. IS q3h bedside 5. Cont Duoneb nebs qid. 6. Add Ez PAP with duoneb qid.
[2018-09-27] MEDS: LORazepam 1 MG Tablet PO PRN (21:20)
[2018-09-27] MEDS: Acetaminophen 325 MG Tablet PO PRN (21:20)
[2018-09-28] MEDS: Piperacil/Tazo 4.5 GM Premix 4.5 GM/100 ML BAG IV.SIG SCH ×4 (03:01→20:28)
[2018-09-28 05:53] LABS: INR 2.3 Ratio; Prothrombin Time 23.7 sec (9.8-11.6)
[2018-09-28] MEDS: Insulin NovoLOG Aspart Correctional Sugar Inj SQ SCH ×4 (09:44→20:27)
[2018-09-28] MEDS: Insulin Detemir Inj 1,000 UNIT/10 ML Vial SQ SCH ×2 (09:45→20:26)
[2018-09-28] MEDS: Lactobacillus Acidophilus/L. Spores Tablet PO SCH ×3 (09:45→18:09)
[2018-09-28] MEDS: Metoprolol Tartrate 25 MG Tablet PO SCH ×2 (09:45→20:19)
[2018-09-28] MEDS: Magnesium Oxide 400 MG Tablet PO SCH (09:45)
[2018-09-28] MEDS: Budesonide-Formoterol 160/4.5 MCG 6 GM Inhaler INH SCH ×2 (09:45→20:27)
[2018-09-28] MEDS: Diphenoxylate/Atropine 2.5/0.025 MG Tablet PO PRN (09:45)
[2018-09-28] MEDS: predniSONE 5 MG Tablet PO SCH (09:45)
[2018-09-28] MEDS: Digoxin 125 MCG Tablet PO SCH (09:45)
--- NOTE | 2018-09-28 09:47 | P.PNIM ---
Subjective Interval history: 09-27 Patient is seen lying quietly in bed. Sleeping but wakes easily. Trach site well-healed. Nursing reports low blood sugar this morning 09-28 NO NEW ISSUES NO NEW COMPLAINTS DW RN AND PT Physical Exam Vital signs: Vital Signs 09/27/18 12:00 09/27/18 16:00 09/27/18 16:38 Temperature 98.2 F 98.0 F Pulse Rate 90 64 Respiratory Rate 20 22 Blood Pressure 122/74 138/80 Pulse Oximetry 97 95 97 09/27/18 20:00 09/28/18 00:00 09/28/18 04:00 Temperature 97.7 F 97.6 F Pulse Rate 49 L 47 L Respiratory Rate 18 18 Blood Pressure 133/60 134/72 Pulse Oximetry 97 96 09/28/18 07:30 Temperature Pulse Rate Respiratory Rate Blood Pressure Pulse Oximetry 95 Intake & Output 09/27/18 09/28/18 09/28/18 18:59 06:59 18:59 Intake Total 1800 / 1800 400 / 400 Output Total 1800 / 1800 700 / 700 Balance 0 / 0 -300 / -300 Weight 120.9 kg Intake: IV 1000 / 1000 400 / 400 NS Inj 1,000 ML @ 75 mls/hr IV. 800 / 800 CONT .[id number] BECKY Rx#:[id number] Diflucan 400 mg Premix Bag 200 200 / 200 ML @ 100 mls/hr IV.SIG Q24H BECKY Rx#:[id number] Zosyn 4.5 GM Premix 4.5 gm In 200 / 200 200 / 200 100 ml @ 200 mls/hr IV.SIG Q6H BECKY Rx#:[id number] Oral 800 / 800 Output: Urine 1800 / 1800 700 / 700 Other: Date of Last Bowel Movement 09/27/18 09/28/18 # Bowel Movements 1 Narrative: GENERAL: Obese adult female, in no acute distress.Shallow breathing. SKIN: Warm and dry. HEAD: Normocephalic. EYES: No scleral icterus. No injection or drainage. NECK: Supple, trachea midline. No JVD or lymphadenopathy.Trach wound is healing well. CARDIOVASCULAR: Regular rate and rhythm. S1-S2 no S3 or S4 RESPIRATORY: Breath sounds equal bilaterally. Mild wheezes. No accessory muscle use. GASTROINTESTINAL: Abdomen soft, non-tender,BS + nondistended. dressed abdominal wall lesion. Obese MUSCULOSKELETAL: No cyanosis, or edema. Insight and judgment is limited Mood and behavior somewhat appropriate - Urinary Catheter Management Straight Cath placed during this visit: no Results - Labs CBC & Chem 7: 09/22/18 07:56 09/27/18 07:35 Laboratory Results - last 24 hr 09/27/18 09/27/18 09/27/18 13:42 18:07 20:14 PT INR POC Glucose 193 H 228 H 211 H 09/28/18 04:57 PT 23.7 H INR 2.3 POC Glucose - Imaging Chest X-Ray 09/13/18 12:51 CONCLUSION: Resolution of previously seen pulmonary edema. Abdomen/Pelvis CT 09/13/18 13:09 CONCLUSION: 1. The gastrostomy tube is pulled back into the superficial subcutaneous tissues, almost out. 2. Debris and induration along the tract through the subcutaneous tissues to the peritoneal cavity without evidence of intraperitoneal abscess, air or fluid 3. Pelvic findings of undetermined significance which appear grossly unchanged. Videofluoroscopic Swallow 09/14/18 00:00 CONCLUSION: No evidence of penetration or aspiration. See full report by the speech pathologist. Abdomen/Pelvis CT 09/20/18 00:00 CONCLUSION: 1. No significant inflammation and induration around the patient's G-tube tract with a number of small soft tissue nodules medial to the tract could be additional areas of infection. There is no large drainable abscess just diffuse induration and small collections of soft tissue presumed infection. 2. Large fatty abdominal wall hernia in the left anterior abdomen. 3. Gallstones in a noninflamed gallbladder 4. Low-density but lobulated pelvic mass on the right. Need to rule out ovarian malignancy. Outpatient pelvic MRI is recommended Chest X-Ray 09/22/18 00:00 CONCLUSION: Small lung volumes. Mild pulmonary vascular congestion. Chest X-Ray 09/27/18 00:00 CONCLUSION: No acute disease - Procedures PEG tube removed. Tracheostomy tube removed. Status post Abdominal Wall I and D. Assessment and Plan - Assessment (1) Tachycardia Code(s): R00.0 - Tachycardia, unspecified Status: Acute (2) Acute UTI (urinary tract infection) Code(s): N39.0 - Urinary tract infection, site not specified Status: Acute (3) Respiratory failure Code(s): J96.90 - Respiratory failure, unspecified, unspecified whether with hypoxia or hypercapnia Status: Acute (4) Complication of feeding tube Code(s): K94.23 - Gastrostomy malfunction Status: Acute - Plan This is a pleasant 68 y/o Female with Depression, DM II, Hypertension, Hyperlipidemia, Morbid Obesity recently Hospitalized May 2018, UTI/Sepsis, she was discharged on tracheostomy and PEG tube. She returned to the emergency room on 09/13/18 with erythema and swelling around her PEG site and a partially displaced PEG tube. PEG tube displacement, infection PEG tube was removed in the ED on 09/13, gastroenterology following Previously n.p.o., diet was advanced by speech and she is tolerating a diabetic diet PEG site became infected, Grecia grew out (ESBL in urine) Re started on Zosyn, Stopped Unasyn and Invanz, Continue Diflucan, following Cultures and Sensitivity. I&D performed at bedside on 09/22/2018 Appreciate gastroenterology Appreciate general surgery consult with I&D Atrial fibrillation Continue Warfarin; monitor INR Heart rate was previously controlled with digoxin alone Cardiology added metoprolol 25 mg twice daily Patient's rate has returned to normal Appreciate cardiology consult INR is 2.3 stable Sacral erythema ordered for [place]. Respiratory failure Trach placed 06/15/2018 Trach decannulated 09/23/18 Continuing bronchodilator, mucolytic, incentive spirometry. Sepsis Present on admission now resolved ESBL UTI Patient previously admitted for sepsis/UTI, previous culture also grew out Klebsiella and Grecia As above continue Invanz Diarrhea C. difficile negative Continue Lomotil as needed Diabetes Mellitus II Episode of mildly low blood sugar 09/27; continue Levemir 8 units BID -monitor for trend. DVT prophylaxis Warfarin, INR currently 2.3 pharmacy following. Code Status: Full code Discussed Condition With: RN and patient Discharge Planning: ONCE CLEARED BY ID FOR DISCHARGE and has safe discharge
--- NOTE | 2018-09-28 12:44 | P.PNGS ---
Subjective Interval history: No complaints. reconsulted for small abscess. Physical Exam Vital signs: Vital Signs 09/27/18 16:00 09/27/18 16:38 09/27/18 20:00 Temperature 98.0 F 97.7 F Pulse Rate 64 49 L Respiratory Rate 22 Blood Pressure 138/80 133/60 Pulse Oximetry 95 97 97 09/28/18 00:00 09/28/18 04:00 09/28/18 07:30 Temperature 97.6 F Pulse Rate 47 L Respiratory Rate 18 18 Blood Pressure 134/72 Pulse Oximetry 96 95 09/28/18 08:00 09/28/18 12:38 Temperature 97.8 F Pulse Rate 65 87 Respiratory Rate 14 20 Blood Pressure 134/82 Pulse Oximetry 98 Intake & Output 09/27/18 09/28/18 09/28/18 18:59 06:59 18:59 Intake Total 1800 / 1800 400 / 400 Output Total 1800 / 1800 700 / 700 Balance 0 / 0 -300 / -300 Weight 120.9 kg Intake: IV 1000 / 1000 400 / 400 NS Inj 1,000 ML @ 75 mls/hr IV. 800 / 800 CONT .[id number] BECKY Rx#:[id number] Diflucan 400 mg Premix Bag 200 200 / 200 ML @ 100 mls/hr IV.SIG Q24H BECKY Rx#:[id number] Zosyn 4.5 GM Premix 4.5 gm In 200 / 200 200 / 200 100 ml @ 200 mls/hr IV.SIG Q6H BECKY Rx#:[id number] Oral 800 / 800 Output: Urine 1800 / 1800 700 / 700 Other: Date of Last Bowel Movement 09/27/18 09/28/18 # Bowel Movements 1 Narrative: Larger PEG site abscess healing well with granulation tissue; one superficial pocket of purulent adjacent drained Inferior to wound is a 2 cm abscess drained purulent fluid - Urinary Catheter Management Straight Cath placed during this visit: no Results - Labs 09/22/18 07:56 09/27/18 07:35 Laboratory Results - last 24 hr 09/27/18 09/27/18 09/27/18 13:42 18:07 20:14 PT INR POC Glucose 193 H 228 H 211 H 09/28/18 09/28/18 04:57 09:43 PT 23.7 H INR 2.3 POC Glucose 109 - Imaging Imaging: ITS Impressions Videofluoroscopic Swallow 09/14/18 00:00 CONCLUSION: No evidence of penetration or aspiration. See full report by the speech pathologist. Abdomen/Pelvis CT 09/20/18 00:00 CONCLUSION: 1. No significant inflammation and induration around the patient's G-tube tract with a number of small soft tissue nodules medial to the tract could be additional areas of infection. There is no large drainable abscess just diffuse induration and small collections of soft tissue presumed infection. 2. Large fatty abdominal wall hernia in the left anterior abdomen. 3. Gallstones in a noninflamed gallbladder 4. Low-density but lobulated pelvic mass on the right. Need to rule out ovarian malignancy. Outpatient pelvic MRI is recommended Chest X-Ray 09/27/18 00:00 CONCLUSION: No acute disease Assessment and Plan - Assessment (1) Abdominal wall abscess at site of surgical wound Code(s): T81.49XA - Infection following a procedure, other surgical site, initial encounter Status: Acute - Plan S/p I&D of PEG site abscess and small abscess inferiorly. Continue BID packing changes. She can f/u with me in two weeks.
--- NOTE | 2018-09-28 17:37 | P.PN ---
Subjective Interval history: She has some SOB and on o2 2 l. CXR done today shows mild atelectasis. Physical Exam Vital signs: Vital Signs 09/27/18 20:00 09/28/18 00:00 09/28/18 04:00 Temperature 97.7 F 97.6 F Pulse Rate 49 L 47 L Respiratory Rate 18 18 Blood Pressure 133/60 134/72 Pulse Oximetry 97 96 09/28/18 07:30 09/28/18 08:00 09/28/18 12:00 Temperature 97.8 F 98.4 F Pulse Rate 65 77 Respiratory Rate 14 12 Blood Pressure 134/82 120/78 Pulse Oximetry 95 98 99 09/28/18 12:38 09/28/18 16:00 Temperature 98 F Pulse Rate 87 77 Respiratory Rate 20 14 Blood Pressure 120/89 Pulse Oximetry 98 Intake & Output 09/27/18 09/28/18 09/28/18 18:59 06:59 18:59 Intake Total 1800 / 1800 400 / 400 1050 / 1050 Output Total 1800 / 1800 700 / 700 1200 / 1200 Balance 0 / 0 -300 / -300 -150 / -150 Weight 120.9 kg Intake: IV 1000 / 1000 400 / 400 100 / 100 NS Inj 1,000 ML @ 75 mls/hr IV. 800 / 800 CONT .[id number] BECKY Rx#:[id number] Diflucan 400 mg Premix Bag 200 200 / 200 ML @ 100 mls/hr IV.SIG Q24H BECKY Rx#:[id number] Zosyn 4.5 GM Premix 4.5 gm In 200 / 200 200 / 200 100 / 100 100 ml @ 200 mls/hr IV.SIG Q6H BECKY Rx#:[id number] Oral 800 / 800 950 / 950 Output: Urine 1800 / 1800 700 / 700 1200 / 1200 Other: Date of Last Bowel Movement 09/27/18 09/28/18 # Bowel Movements 1 2 Narrative: GENERAL: Obese mid aged W/F alert SKIN: Warm and dry. HEAD: Atraumatic. Normocephalic. EYES: Pupils equal and round. No scleral icterus. No injection or drainage. ENT: No nasal bleeding or discharge. Mucous membranes pink and moist. NECK: Trachea midline. No JVD. CARDIOVASCULAR: Regular rate and rhythm. RESPIRATORY: No accessory muscle use. Occ wheeze heard. Breath sounds equal bilaterally. GASTROINTESTINAL: Abdomen soft, non-tender, nondistended. Hepatic and splenic margins not palpable. MUSCULOSKELETAL: Extremities without clubbing, cyanosis, or edema. No obvious deformities. NEUROLOGICAL: Awake and alert. No obvious cranial nerve deficits. Motor grossly within normal limits. Five out of 5 muscle strength in the arms and legs. Normal speech. PSYCHIATRIC: Appropriate mood and affect; insight and judgment normal. - Urinary Catheter Management Straight Cath placed during this visit: no Results - Labs CBC & Chem 7: 09/22/18 07:56 09/27/18 07:35 Laboratory Results - last 24 hr 09/27/18 09/27/18 09/28/18 18:07 20:14 04:57 PT 23.7 H INR 2.3 POC Glucose 228 H 211 H 09/28/18 09/28/18 09:43 12:38 PT INR POC Glucose 109 196 H - Procedures PEG tube removed. Tracheostomy tube removed. Status post Abdominal Wall I and D. Assessment and Plan - Assessment (1) Status post tracheostomy Code(s): Z93.0 - Tracheostomy status Status: Acute (2) Acute kidney injury Code(s): N17.9 - Acute kidney failure, unspecified Status: Acute (3) Acute UTI (urinary tract infection) Code(s): N39.0 - Urinary tract infection, site not specified Status: Acute (4) Hypoxia Code(s): R09.02 - Hypoxemia Status: Acute (5) SVT (supraventricular tachycardia) Code(s): I47.1 - Supraventricular tachycardia Status: Acute (6) Sepsis secondary to UTI Code(s): A41.9 - Sepsis, unspecified organism; N39.0 - Urinary tract infection, site not specified Status: Acute (7) Hypernatremia Code(s): E87.0 - Hyperosmolality and hypernatremia Status: Acute (8) Respiratory failure Code(s): J96.90 - Respiratory failure, unspecified, unspecified whether with hypoxia or hypercapnia Status: Acute - Plan 1. O2 2 L PRN 2. Up in chair as tolerated 3 Cont Antibiotics Per ID 4. IS q3h bedside 5. Cont Duoneb nebs qid. 6. Ez PAP with duoneb qid. 7. OK to rehab when cleared by surgery
[2018-09-28] MEDS: Acetaminophen 325 MG Tablet PO PRN (20:29)
[2018-09-28] MEDS: LORazepam 1 MG Tablet PO PRN (20:29)
[2018-09-29] MEDS: Piperacil/Tazo 4.5 GM Premix 4.5 GM/100 ML BAG IV.SIG SCH ×4 (02:54→21:25)
[2018-09-29] MEDS: predniSONE 5 MG Tablet PO SCH (08:32)
[2018-09-29] MEDS: Magnesium Oxide 400 MG Tablet PO SCH (08:32)
[2018-09-29] MEDS: Budesonide-Formoterol 160/4.5 MCG 6 GM Inhaler INH SCH ×2 (08:33→21:30)
[2018-09-29] MEDS: Metoprolol Tartrate 25 MG Tablet PO SCH ×2 (08:33→21:30)
[2018-09-29] MEDS: Digoxin 125 MCG Tablet PO SCH (08:33)
[2018-09-29] MEDS: Lactobacillus Acidophilus/L. Spores Tablet PO SCH ×3 (08:33→17:17)
[2018-09-29] MEDS: Insulin NovoLOG Aspart Correctional Sugar Inj SQ SCH ×4 (08:34→23:16)
[2018-09-29 08:47] LABS: INR 2.5 Ratio; Prothrombin Time 25.4 sec (9.8-11.6)
[2018-09-29] MEDS: Acetaminophen 325 MG Tablet PO PRN ×3 (08:59→21:30)
--- NOTE | 2018-09-29 09:33 | P.PNIM ---
Subjective Interval history: 09-27 Patient is seen lying quietly in bed. Sleeping but wakes easily. Trach site well-healed. Nursing reports low blood sugar this morning 09-28 NO NEW ISSUES NO NEW COMPLAINTS DW RN AND PT HAD I&D OF PEG SITE TODAY WITH GENERAL SURGERY NOT CLEARED BY ID FOR DISCHARGE YET WILL NEED HELP WITH SNF VS [facility] FOR ANTIBIOTICS AM LABS HOPEFULLY TO SNF AT [place]?? 09-29 await case management help for discharge planning Was at home with her son and [id number]. Was only pivoting and standing prior to admission SNF would be good or inpatient rehab would be better If patient went home with home health care would expect her to return back to the hospital soon afterwards due to her severe debility Physical Exam Vital signs: Vital Signs 09/28/18 12:00 09/28/18 12:38 09/28/18 16:00 Temperature 98.4 F 98 F Pulse Rate 77 87 77 Respiratory Rate 12 20 14 Blood Pressure 120/78 120/89 Pulse Oximetry 99 98 09/28/18 20:00 09/28/18 21:16 09/29/18 00:00 Temperature 97.7 F Pulse Rate 53 L 103 H Respiratory Rate 20 18 18 Blood Pressure 130/62 Pulse Oximetry 98 92 L 09/29/18 04:00 09/29/18 08:00 09/29/18 08:39 Temperature 98.8 F Pulse Rate 55 L 54 L Respiratory Rate 18 18 16 Blood Pressure 154/75 H Pulse Oximetry 98 99 Intake & Output 09/28/18 09/29/18 09/29/18 18:59 06:59 18:59 Intake Total 1150 / 1150 400 / 400 100 / 100 Output Total 1200 / 1200 Balance -50 / -50 400 / 400 100 / 100 Weight 120.9 kg Intake: IV 200 / 200 400 / 400 100 / 100 Diflucan 400 mg Premix Bag 200 200 / 200 ML @ 100 mls/hr IV.SIG Q24H BECKY Rx#:[id number] Zosyn 4.5 GM Premix 4.5 gm In 200 / 200 200 / 200 100 / 100 100 ml @ 200 mls/hr IV.SIG Q6H BECKY Rx#:[id number] Oral 950 / 950 Output: Urine 1200 / 1200 Other: # Incontinent Voids 600 Date of Last Bowel Movement 09/28/18 # Bowel Movements 2 Narrative: GENERAL: Obese mid aged W/F alert SKIN: Warm and dry. HEAD: Atraumatic. Normocephalic. EYES: Pupils equal and round. No scleral icterus. No injection or drainage. ENT: No nasal bleeding or discharge. Mucous membranes pink and moist. NECK: Trachea midline. No JVD. CARDIOVASCULAR: Regular rate and rhythm. RESPIRATORY: No accessory muscle use. Occ wheeze heard. Breath sounds equal bilaterally. GASTROINTESTINAL: Abdomen soft, non-tender, nondistended. Hepatic and splenic margins not palpable. MUSCULOSKELETAL: Extremities without clubbing, cyanosis, or edema. No obvious deformities. NEUROLOGICAL: Awake and alert. No obvious cranial nerve deficits. Motor grossly within normal limits. Five out of 5 muscle strength in the arms and legs. Normal speech. PSYCHIATRIC: Appropriate mood and affect; insight and judgment normal. - Urinary Catheter Management Straight Cath placed during this visit: no Results - Labs CBC & Chem 7: 09/22/18 07:56 09/27/18 07:35 Laboratory Results - last 24 hr 09/28/18 09/28/18 09/28/18 09:43 12:38 17:51 PT INR POC Glucose 109 196 H 232 H 09/28/18 09/29/18 09/29/18 19:56 08:07 08:25 PT 25.4 H INR 2.5 POC Glucose 227 H 122 H - Procedures PEG tube removed. Tracheostomy tube removed. Status post Abdominal Wall I and D. Assessment and Plan - Assessment (1) Tachycardia Code(s): R00.0 - Tachycardia, unspecified Status: Acute (2) Acute UTI (urinary tract infection) Code(s): N39.0 - Urinary tract infection, site not specified Status: Acute (3) Respiratory failure Code(s): J96.90 - Respiratory failure, unspecified, unspecified whether with hypoxia or hypercapnia Status: Acute (4) Complication of feeding tube Code(s): K94.23 - Gastrostomy malfunction Status: Acute - Plan This is a pleasant 68 y/o Female with Depression, DM II, Hypertension, Hyperlipidemia, Morbid Obesity recently Hospitalized May 2018, UTI/Sepsis, she was discharged on tracheostomy and PEG tube. She returned to the emergency room on 09/13/18 with erythema and swelling around her PEG site and a partially displaced PEG tube. PEG tube displacement, infection PEG tube was removed in the ED on 09/13, gastroenterology following Previously n.p.o., diet was advanced by speech and she is tolerating a diabetic diet PEG site became infected, Grecia grew out (ESBL in urine) Re started on Zosyn, Stopped Unasyn and Invanz, Continue Diflucan, following Cultures and Sensitivity. I&D performed at bedside on 09/22/2018 Appreciate gastroenterology Appreciate general surgery consult with I&D 11-7 Atrial fibrillation Continue Warfarin; monitor INR Heart rate was previously controlled with digoxin alone Cardiology added metoprolol 25 mg twice daily Patient's rate has returned to normal Appreciate cardiology consult INR is 2.3 stable Sacral erythema ordered for Egg Mattress. Respiratory failure Trach placed 06/15/2018 Trach decannulated 09/23/18 Continuing bronchodilator, mucolytic, incentive spirometry. Sepsis Present on admission now resolved ESBL UTI Patient previously admitted for sepsis/UTI, previous culture also grew out Klebsiella and Grecia As above continue fluconazole and Zosyn Diarrhea C. difficile negative Continue Lomotil as needed Diabetes Mellitus II Episode of mildly low blood sugar 09/27; continue Levemir 8 units BID -monitor for trend. DVT prophylaxis Warfarin, INR currently 2.5 pharmacy following. Code Status: Full code Discussed Condition With: RN and patient and case management Discharge Planning: ONCE CLEARED BY ID FOR DISCHARGE and has safe discharge Await safe place for discharge Inpatient rehab would be a good choice versus SNF
[2018-09-29] MEDS: Insulin Detemir Inj 1,000 UNIT/10 ML Vial SQ SCH ×2 (10:45→21:30)
--- NOTE | 2018-09-29 13:12 | P.PNID ---
Subjective Remarks: Patient is a 68-year-old female, brought into the hospital for evaluation of her PEG tube. Patient was hospitalized here back in May and at that time she was treated for sepsis. She had a UTI, and also had what looks like an infection on 1 of her toes on the right foot. She ended up on the respirator, and has required continued ventilatory support, requiring tracheostomy. She also had a PEG tube placed at that time. She was discharged to [facility] towards the end of May, and apparently she was discharged around the second week in August and has been at home. Patient gets tube feedings 24 hours a day, and she still is able to eat some. She has a Passy- David valve on her trach. She stays mostly in bed, and sometimes dangles at the side of the bed, and she could stand up but does not really do any ambulation. Recently apparently she has been having problem with leaking around the PEG tube. She was also noted to have some swelling around the PEG tube site. She presented to the hospital, and she had a fever of 100.9. Her white count is elevated at 14,000. She had a CT of the abdomen and pelvis which did not show any evidence of intra-abdominal abscess, but it shows that the PEG is almost out with some debris along the PEG tube tract and some into the peritoneal cavity. The PEG was removed in the ED. She had a swallowing eval with no evidence of aspiration. Patient currently is on a T-piece. She denies any shortness of breath. Her abdominal pain is better. She is awake and alert. Her temperatures are better. BP is stable and she is not on any pressor support. 2 blood cultures were done in the ED and one blood culture is currently going growing enterococcus. Her chest x-ray is normal. Infectious disease consultation has been requested to evaluate the patient with positive blood culture. Notes reviewed D/W RN Temps ok Surgery assistance appreciated Not SOB Swallowing ok Doing well C/S with Kleb ESBL+, enterococcus and crispin albicans WBC normal Antibiotics: Zosyn Diflucan Lines: PIV Past Medical History: MDRO (multiple drug resistant organisms) resistance Onset Date: ~09/13/18 Depression Diabetes Hypertension Hypertriglyceridemia Morbid obesity Tubal ligation PEG placement Tracheostomy Allergies/Adverse Reactions: Allergies No Known Allergies Allergy (Verified 05/30/18 22:08) Objective Vital Signs 09/28/18 16:00 09/28/18 20:00 09/28/18 21:16 Temperature 98 F 97.7 F Pulse Rate 77 53 L 103 H Respiratory Rate 14 20 18 Blood Pressure 120/89 130/62 Pulse Oximetry 98 98 92 L 09/29/18 00:00 09/29/18 04:00 09/29/18 08:00 Temperature 98.8 F Pulse Rate 55 L Respiratory Rate 18 18 18 Blood Pressure 154/75 H Pulse Oximetry 98 09/29/18 08:39 09/29/18 12:00 Temperature 98.4 F Pulse Rate 54 L 49 L Respiratory Rate 16 16 Blood Pressure 134/62 Pulse Oximetry 99 93 L Intake & Output 09/28/18 09/29/18 09/29/18 18:59 06:59 18:59 Intake Total 1150 / 1150 400 / 400 100 / 100 Output Total 1200 / 1200 Balance -50 / -50 400 / 400 100 / 100 Weight 120.9 kg Intake: IV 200 / 200 400 / 400 100 / 100 Diflucan 400 mg Premix Bag 200 200 / 200 ML @ 100 mls/hr IV.SIG Q24H BECKY Rx#:[id number] Zosyn 4.5 GM Premix 4.5 gm In 200 / 200 200 / 200 100 / 100 100 ml @ 200 mls/hr IV.SIG Q6H BECKY Rx#:[id number] Oral 950 / 950 Output: Urine 1200 / 1200 Other: # Incontinent Voids 600 Date of Last Bowel Movement 09/28/18 09/28/18 # Bowel Movements 2 Lab - Chemistry Results 09/27/18 09/27/18 09/27/18 13:42 18:07 20:14 POC Glucose 193 H 228 H 211 H 09/28/18 09/28/18 09/28/18 09:43 12:38 17:51 POC Glucose 109 196 H 232 H 09/28/18 09/29/18 09/29/18 19:56 08:25 12:36 POC Glucose 227 H 122 H 334 H Imaging: ITS Impressions Videofluoroscopic Swallow 09/14/18 00:00 CONCLUSION: No evidence of penetration or aspiration. See full report by the speech pathologist. Abdomen/Pelvis CT 09/20/18 00:00 CONCLUSION: 1. No significant inflammation and induration around the patient's G-tube tract with a number of small soft tissue nodules medial to the tract could be additional areas of infection. There is no large drainable abscess just diffuse induration and small collections of soft tissue presumed infection. 2. Large fatty abdominal wall hernia in the left anterior abdomen. 3. Gallstones in a noninflamed gallbladder 4. Low-density but lobulated pelvic mass on the right. Need to rule out ovarian malignancy. Outpatient pelvic MRI is recommended Chest X-Ray 09/27/18 00:00 CONCLUSION: No acute disease Physical Exam: GENERAL: awake and alert, NAD SKIN: Cool and dry. No generalized rash HEAD: Atraumatic. Normocephalic. No temporal wasting, or tenderness. EYES: [place] conjunctiva. No petechia or hemorrhage. No scleral icterus. No injection or drainage. EARS, NOSE AND THROAT: Mucous membranes pink and moist. No oral lesions noted. NECK: Previous trach site healing CARDIOVASCULAR: No murmurs, rubs or gallops heard RESPIRATORY: Coarse breath sounds sully, with scattered wheezing ABDOMEN: Soft, obese, previous PEG site with packing, redness gone, induration is better. Has a draining abscess below this. Has reducible UH EXTREMITIES: No clubbing, cyanosis, or edema. No calf tenderness. NEUROLOGICAL: Non-focal PSYCHIATRIC: Normal affect, calm and cooperative. LINE: No evidence of infection Assessment and Plan - Plan Impression Bacteremia with Enterococcus, due to abdominal wall cellulitis from PEG malposition Abdominal wall cellulitis, abscess Seems to have another abscess below the open wound UTI Respiratory failure, S/P trach, has passey-david valve Hx possible osteo of toe R foot - currently no obvious evidence of infection Low grade temps, better - likely due to PEG site infection, better since the opening was made bigger and being drained and packed Recommendation Continue Zosyn - will cover the 2 Kleb and Enterococcus Continue Diflucan, change to po Wound care per surgery Follow temps Monitor progress D/W RN Explained plan to the patient
[2018-09-29] MEDS: LORazepam 1 MG Tablet PO PRN (21:30)
[2018-09-30] MEDS: Piperacil/Tazo 4.5 GM Premix 4.5 GM/100 ML BAG IV.SIG SCH ×4 (03:00→21:46)
[2018-09-30 06:52] LABS: INR 2.6 Ratio; Prothrombin Time 26.3 sec (9.8-11.6)
[2018-09-30 06:57] LABS: Baso # (Auto) 0.1 th/mm3 (0.0-0.2); Baso % (Auto) 1.1 % (0.0-2.0); Eos # (Auto) 0.2 th/mm3 (0.0-0.4); Eos % (Auto) 3.5 % (0.0-4.0); Hematocrit 36.1 % (35.0-46.0); Hemoglobin 11.7 gm/dL (11.6-15.3); Lymph # (Auto) 1.5 th/mm3 (1.0-4.8); Lymph % (Auto) 23.5 % (9.0-44.0); Mean Corpuscular HGB Conc 32.3 % (32.0-36.0); Mean Corpuscular Hemoglobin 29.9 pg (27.0-34.0); Mean Corpuscular Volume 92.6 fL (80.0-100.0); Mean Platelet Volume 7.3 fL (7.0-11.0); Mono # (Auto) 0.4 th/mm3 (0.0-0.9); Mono % (Auto) 6.3 % (0.0-8.0); Neut # (Auto) 4.3 th/mm3 (1.8-7.7); Neut % (Auto) 65.6 % (16.0-70.0); Platelet Count 181 th/mm3 (150-450); Red Cell Distribution Width 16.8 % (11.6-17.2); White Blood Count 6.5 th/mm3 (4.0-11.0)
[2018-09-30 07:10] LABS: Albumin 2.7 g/dL (3.4-5.0); Anion Gap 7 meq/L (5-15); Aspartate Aminotransferase 10 U/L (15-37); Blood Urea Nitrogen 18 mg/dL (7-18); Calcium 8.4 mg/dL (8.5-10.1); Carbon Dioxide 32.2 meq/L (21.0-32.0); Chloride 103 meq/L (98-107); Glomerular Filtration Rate 64 mL/min (>89); Glucose,Random 120 mg/dL (74-106); Magnesium 1.8 mg/dL (1.5-2.5); Potassium 3.7 meq/L (3.5-5.1); Sodium 142 meq/L (136-145)
[2018-09-30 07:11] LABS: Alanine Aminotransferase 28 U/L (10-53); Phosphorus 2.7 mg/dL (2.5-4.9)
[2018-09-30 07:19] LABS: Alkaline Phosphatase 59 U/L (45-117); Free T4 (Free Thyroxine) 0.91 ng/dL (0.76-1.46); Total Protein 6.5 g/dL (6.4-8.2)
[2018-09-30] MEDS: Insulin NovoLOG Aspart Correctional Sugar Inj SQ SCH ×4 (07:53→21:46)
[2018-09-30] MEDS: Metoprolol Tartrate 25 MG Tablet PO SCH ×2 (09:00→21:44)
[2018-09-30] MEDS: Magnesium Oxide 400 MG Tablet PO SCH (09:00)
[2018-09-30] MEDS: predniSONE 5 MG Tablet PO SCH (09:00)
[2018-09-30] MEDS: Budesonide-Formoterol 160/4.5 MCG 6 GM Inhaler INH SCH ×2 (09:00→21:46)
[2018-09-30] MEDS: Lactobacillus Acidophilus/L. Spores Tablet PO SCH ×3 (09:00→17:35)
[2018-09-30] MEDS: Digoxin 125 MCG Tablet PO SCH (09:00)
[2018-09-30] MEDS: Insulin Detemir Inj 1,000 UNIT/10 ML Vial SQ SCH ×2 (09:00→21:44)
[2018-09-30] MEDS: Diphenoxylate/Atropine 2.5/0.025 MG Tablet PO PRN (12:33)
--- NOTE | 2018-09-30 12:50 | P.PNIM ---
Subjective Interval history: 09-27 Patient is seen lying quietly in bed. Sleeping but wakes easily. Trach site well-healed. Nursing reports low blood sugar this morning 09-28 NO NEW ISSUES NO NEW COMPLAINTS DW RN AND PT HAD I&D OF PEG SITE TODAY WITH GENERAL SURGERY NOT CLEARED BY ID FOR DISCHARGE YET WILL NEED HELP WITH SNF VS HHC FOR ANTIBIOTICS AM LABS HOPEFULLY TO SNF AT [place]?? 09-29 await case management help for discharge planning Was at home with her son and [id number]. Was only pivoting and standing prior to admission SNF would be good or inpatient rehab would be better If patient went home with home health care would expect her to return back to the hospital soon afterwards due to her severe debility 09-30 remains on DIFLUCAN AND ZOSYN IS MAX ASSIST TO STAND NEEDS SNF VS INPT REHAB NOT A GOOD CANDIDATE FOR HOME HEALTH CARE UNLESS WANT A READMISSION Stood for less than 5 seconds with maximum assistance Physical Exam Vital signs: Vital Signs 09/29/18 13:40 09/29/18 16:00 09/29/18 19:00 Temperature 99.7 F H Pulse Rate 58 L 58 L 48 L Respiratory Rate 16 22 20 Blood Pressure 132/72 Pulse Oximetry 96 09/29/18 20:00 09/30/18 00:00 09/30/18 04:00 Temperature 96.7 F L 97.2 F L 97.4 F L Pulse Rate 61 48 L 45 L Respiratory Rate 22 20 20 Blood Pressure 123/58 L 130/62 150/68 H Pulse Oximetry 97 09/30/18 07:00 09/30/18 08:00 09/30/18 09:00 Temperature 97.6 F Pulse Rate 58 L 49 L 62 Respiratory Rate 16 18 18 Blood Pressure 129/64 Pulse Oximetry 100 98 99 09/30/18 11:42 09/30/18 11:51 Temperature Pulse Rate 51 L Respiratory Rate 16 Blood Pressure Pulse Oximetry 95 Intake & Output 09/29/18 09/30/18 09/30/18 18:59 06:59 18:59 Intake Total 1160 / 1160 260 / 260 100 / 100 Output Total 800 / 800 900 / 900 800 / 800 Balance 360 / 360 -640 / -640 -700 / -700 Intake: IV 200 / 200 200 / 200 100 / 100 Zosyn 4.5 GM Premix 4.5 gm In 200 / 200 200 / 200 100 / 100 100 ml @ 200 mls/hr IV.SIG Q6H BECKY Rx#:[id number] Oral 960 / 960 60 / 60 Output: Urine 800 / 800 900 / 900 800 / 800 Other: Date of Last Bowel Movement 09/29/18 09/29/18 09/30/18 # Incontinent Bowel Movements 2 1 Narrative: GENERAL: Obese mid aged W/F alert SKIN: Warm and dry. HEAD: Atraumatic. Normocephalic. EYES: Pupils equal and round. No scleral icterus. No injection or drainage. ENT: No nasal bleeding or discharge. Mucous membranes pink and moist. NECK: Trachea midline. No JVD. CARDIOVASCULAR: Regular rate and rhythm. RESPIRATORY: No accessory muscle use. Occ wheeze heard. Breath sounds equal bilaterally. GASTROINTESTINAL: Abdomen soft, non-tender, nondistended. Hepatic and splenic margins not palpable. Morbidly obese MUSCULOSKELETAL: Extremities without clubbing, cyanosis, or edema. No obvious deformities. NEUROLOGICAL: Awake and alert. No obvious cranial nerve deficits. Motor grossly within normal limits. 4 out of 5 muscle strength in the arms and legs. Normal speech. PSYCHIATRIC: INAppropriate mood and affect; insight and judgment ABnormal. - Urinary Catheter Management Straight Cath placed during this visit: no Results - Labs CBC & Chem 7: 09/30/18 06:30 09/30/18 06:30 Laboratory Results - last 24 hr 09/29/18 09/29/18 09/30/18 17:02 21:36 06:30 WBC RBC Hgb Hct MCV MCH MCHC RDW Plt Count MPV Neut % (Auto) Lymph % (Auto) [place] % (Auto) Eos % (Auto) Baso % (Auto) Neut # (Auto) Lymph # (Auto) [place] # (Auto) Eos # (Auto) Baso # (Auto) WBC Differential Differential Comment PT 26.3 H INR 2.6 Sodium Potassium Chloride Carbon Dioxide Anion Gap BUN Creatinine Estimated GFR POC Glucose 300 H 150 H Random Glucose Calcium Phosphorus Magnesium Total Bilirubin AST ALT Alkaline Phosphatase Total Protein Albumin TSH Free T4 09/30/18 09/30/18 06:30 06:30 WBC 6.5 RBC 3.90 L Hgb 11.7 Hct 36.1 MCV 92.6 MCH 29.9 MCHC 32.3 RDW 16.8 Plt Count 181 MPV 7.3 Neut % (Auto) 65.6 Lymph % (Auto) 23.5 [place] % (Auto) 6.3 Eos % (Auto) 3.5 Baso % (Auto) 1.1 Neut # (Auto) 4.3 Lymph # (Auto) 1.5 [place] # (Auto) 0.4 Eos # (Auto) 0.2 Baso # (Auto) 0.1 WBC Differential . Differential Comment Auto diff final PT INR Sodium 142 Potassium 3.7 Chloride 103 Carbon Dioxide 32.2 H Anion Gap 7 BUN 18 Creatinine 0.88 Estimated GFR 64 L POC Glucose Random Glucose 120 H Calcium 8.4 L Phosphorus 2.7 Magnesium 1.8 Total Bilirubin 0.2 AST 10 L ALT 28 Alkaline Phosphatase 59 Total Protein 6.5 Albumin 2.7 L TSH 1.150 Free T4 0.91 - Imaging ITS Impressions Videofluoroscopic Swallow 09/14/18 00:00 CONCLUSION: No evidence of penetration or aspiration. See full report by the speech pathologist. Abdomen/Pelvis CT 09/20/18 00:00 CONCLUSION: 1. No significant inflammation and induration around the patient's G-tube tract with a number of small soft tissue nodules medial to the tract could be additional areas of infection. There is no large drainable abscess just diffuse induration and small collections of soft tissue presumed infection. 2. Large fatty abdominal wall hernia in the left anterior abdomen. 3. Gallstones in a noninflamed gallbladder 4. Low-density but lobulated pelvic mass on the right. Need to rule out ovarian malignancy. Outpatient pelvic MRI is recommended Chest X-Ray 09/27/18 00:00 CONCLUSION: No acute disease - Procedures PEG tube removed. Tracheostomy tube removed. Status post Abdominal Wall I and D. Assessment and Plan - Assessment (1) Tachycardia Code(s): R00.0 - Tachycardia, unspecified Status: Acute (2) Acute UTI (urinary tract infection) Code(s): N39.0 - Urinary tract infection, site not specified Status: Acute (3) Respiratory failure Code(s): J96.90 - Respiratory failure, unspecified, unspecified whether with hypoxia or hypercapnia Status: Acute (4) Complication of feeding tube Code(s): K94.23 - Gastrostomy malfunction Status: Acute - Plan This is a pleasant 68 y/o Female with Depression, DM II, Hypertension, Hyperlipidemia, Morbid Obesity recently Hospitalized May 2018, UTI/Sepsis, she was discharged on tracheostomy and PEG tube. She returned to the emergency room on 09/13/18 with erythema and swelling around her PEG site and a partially displaced PEG tube. PEG tube displacement, infection PEG tube was removed in the ED on 09/13, gastroenterology following Previously n.p.o., diet was advanced by speech and she is tolerating a diabetic diet PEG site became infected, Grecia grew out (ESBL in urine) Re started on Zosyn, Stopped Unasyn and Invanz, Continue Diflucan, following Cultures and Sensitivity. I&D performed at bedside on 09/22/2018 Appreciate gastroenterology Appreciate general surgery consult with I&D 11 Atrial fibrillation Continue Warfarin; monitor INR Heart rate was previously controlled with digoxin alone Cardiology added metoprolol 25 mg twice daily Patient's rate has returned to normal Appreciate cardiology consult INR is 2.6 stable Sacral erythema ordered for Egg Mattress. Respiratory failure Trach placed 06/15/2018 Trach decannulated 09/23/18 Continuing bronchodilator, mucolytic, incentive spirometry. Sepsis Present on admission now resolved ESBL UTI Patient previously admitted for sepsis/UTI, previous culture also grew out Klebsiella and Grecia As above continue fluconazole and Zosyn Diarrhea C. difficile negative Continue Lomotil as needed Diabetes Mellitus II Episode of mildly low blood sugar 09/27; continue Levemir 8 units BID -monitor for trend. DVT prophylaxis Warfarin, INR currently 2.6 pharmacy following. Code Status: Full code Discussed Condition With: RN and patient Discharge Planning: ONCE CLEARED BY ID FOR DISCHARGE and has safe discharge Await safe place for discharge Inpatient rehab would be a good choice versus SNF
[2018-09-30 16:17] LABS: Hemoglobin A1c 6.8 % (4.3-6.0)
[2018-09-30] MEDS: Lactic Acid (Ammonium Lactate) 12% Lotion 225 GM Bottle TOPICAL SCH (21:00)
[2018-09-30] MEDS: Acetaminophen 325 MG Tablet PO PRN (21:47)
[2018-09-30] MEDS: LORazepam 1 MG Tablet PO PRN (21:48)
[2018-10-01] MEDS: Piperacil/Tazo 4.5 GM Premix 4.5 GM/100 ML BAG IV.SIG SCH ×4 (03:14→21:30)
[2018-10-01 06:48] LABS: Prothrombin Time 30.1 sec (9.8-11.6)
[2018-10-01] MEDS: Diphenoxylate/Atropine 2.5/0.025 MG Tablet PO PRN (11:02)
[2018-10-01] MEDS: Lactobacillus Acidophilus/L. Spores Tablet PO SCH ×3 (11:02→17:05)
[2018-10-01] MEDS: Magnesium Oxide 400 MG Tablet PO SCH (11:02)
[2018-10-01] MEDS: Insulin NovoLOG Aspart Correctional Sugar Inj SQ SCH ×4 (11:02→21:31)
[2018-10-01] MEDS: Metoprolol Tartrate 25 MG Tablet PO SCH ×2 (11:02→20:37)
[2018-10-01] MEDS: Lactic Acid (Ammonium Lactate) 12% Lotion 225 GM Bottle TOPICAL SCH ×2 (11:03→21:26)
[2018-10-01] MEDS: Budesonide-Formoterol 160/4.5 MCG 6 GM Inhaler INH SCH ×2 (11:03→21:27)
[2018-10-01] MEDS: Digoxin 125 MCG Tablet PO SCH (11:03)
[2018-10-01] MEDS: predniSONE 5 MG Tablet PO SCH (11:03)
[2018-10-01] MEDS: Insulin Detemir Inj 1,000 UNIT/10 ML Vial SQ SCH ×2 (11:03→21:27)
--- NOTE | 2018-10-01 12:44 | P.PNIM ---
Subjective Interval history: Pt seen and examined for f/u PEG site abscess s/p ID and removal of PEG, ESBL+ UTI and wound infection, and Enterococcus bacteremia. AFVSS. Off of oxygen and maintaining saturations on room air. Anxious to go home. Refusing rehab or SNF, wants [facility]. Denies CP, SOB, cough, abdominal pain, N/V. Physical Exam Vital signs: Vital Signs 09/30/18 16:00 09/30/18 20:00 09/30/18 20:02 Temperature 98.0 F 96.1 F L Pulse Rate 59 L 55 L 59 L Respiratory Rate 20 20 20 Blood Pressure 127/77 107/53 L Pulse Oximetry 99 97 09/30/18 20:03 10/01/18 00:00 10/01/18 08:10 Temperature 97.4 F L Pulse Rate 50 L 74 Respiratory Rate 20 18 Blood Pressure 145/64 H Pulse Oximetry 99 98 99 Intake & Output 09/30/18 10/01/18 10/01/18 18:59 06:59 18:59 Intake Total 1200 / 1200 350 / 350 Output Total 2500 / 2500 600 / 600 Balance -1300 / -1300 -250 / -250 Intake: IV 200 / 200 200 / 200 Zosyn 4.5 GM Premix 4.5 gm In 200 / 200 200 / 200 100 ml @ 200 mls/hr IV.SIG Q6H BECKY Rx#:[id number] Oral 1000 / 1000 150 / 150 Output: Urine 2500 / 2500 600 / 600 Other: Date of Last Bowel Movement 09/30/18 09/30/18 # Incontinent Bowel Movements 2 1 Narrative: GENERAL: Obese female resting in bed in [facility]. SKIN: Warm and dry. HEENT: AT/NC. Pupils equal and round. MMM. HEART: IRR no m/r/g. LUNGS: CTAB without wheezes or crackles. ABDOMEN: +BS, soft, NT, ND. EXTREMITIES: No LE edema. Calves supple and nontender. NEURO: Awake and alert. Nonfocal. - Urinary Catheter Management Straight Cath placed during this visit: no Results - Labs CBC & Chem 7: 09/30/18 06:30 09/30/18 06:30 Laboratory Results - last 24 hr 09/30/18 09/30/18 09/30/18 06:30 06:30 13:27 PT INR POC Glucose 202 H Hemoglobin A1c 6.8 H Free T4 0.93 09/30/18 09/30/18 10/01/18 18:28 21:02 06:25 PT 30.1 H INR 3.0 POC Glucose 164 H 225 H Hemoglobin A1c Free T4 10/01/18 10:59 PT INR POC Glucose 110 Hemoglobin A1c Free T4 - Procedures PEG tube removed. Tracheostomy tube removed. Status post Abdominal Wall I and D. Assessment and Plan - Assessment (1) Tachycardia Code(s): R00.0 - Tachycardia, unspecified Status: Acute (2) Acute UTI (urinary tract infection) Code(s): N39.0 - Urinary tract infection, site not specified Status: Acute (3) Respiratory failure Code(s): J96.90 - Respiratory failure, unspecified, unspecified whether with hypoxia or hypercapnia Status: Acute (4) Complication of feeding tube Code(s): K94.23 - Gastrostomy malfunction Status: Acute - Plan 68-year-old female with DM, HTN, HLD, morbid obesity, and depression admitted on 09/13 with erythema and swelling around her PEG site as well as a partially displaced PEG tube. She was prior hospitalized May 2018 for UTI/ sepsis complicated by interventions requiring tracheostomy and PEG tube placed. 1. PEG site infection - Patient meeting septic criteria on admission based on tachycardia, leukocytosis, fever, and source of infection - acute sepsis component resolved - CT A/P negative for drainable abscess but did show induration and small collections of soft tissue presumed infection around the G-tube tract - GI was consulted given PEG tube displacement which was ultimately removed on 09/13 in the ED - ST following, advanced patient's diet - Bedside I&D performed by general surgery on 09/22 (surgery consulted as patient was having fevers despite IV antibiotics as well as purulent drainage) - Wound grew Enterococcus faecium and Grecia on 09/13 and recultured on 09/20 after bedside I&D which grew ESBL+ Klebsiella, Grecia, and enterococcus - ID following - Continue Diflucan and Zosyn 2. Enterococcus bacteremia - BLood cultures + on 09/13 - Repeat on 09/14 NGTD - ID following - See antibiotics above 3. +ESBL Klebsiella/Grecia UTI - ID following - On Zosyn and Diflucan as above 4. Right pelvic mass - Seen on CT - Need to r/o ovarian malignancy and outpatient pelvic MRI recommended 5. Atrial fibrillation - Continue Coumadin - INR therapeutic at 3.0 - Continue Digoxin - Cardiology consulted earlier in course, added metoprolol - Continue to monitor daily INR 6. Chronic respiratory failure - resolved - Trach placed 06/15 and deccanulated 09/23 - Off of supplemental O2 - Pulm following - Pulmonary toilet - Continue Symbicort 7. Diarrhea - C. diff negative - Lomotil PRN - Continue Lactinex 8. DM - Holding home PO meds - Continue Levemir and SSI - Monitor Accu-Cheks 9. Depression - Continue home Celexa - Ativan PRN DVT prophylaxis: anticoagulated on Coumadin
[2018-10-01] MEDS: Acetaminophen 325 MG Tablet PO PRN (21:32)
[2018-10-01] MEDS: LORazepam 1 MG Tablet PO PRN (21:33)
[2018-10-02] MEDS: Piperacil/Tazo 4.5 GM Premix 4.5 GM/100 ML BAG IV.SIG SCH ×4 (03:08→20:05)
[2018-10-02] MEDS: predniSONE 5 MG Tablet PO SCH (10:00)
[2018-10-02] MEDS: Diphenoxylate/Atropine 2.5/0.025 MG Tablet PO PRN ×2 (10:21→20:06)
[2018-10-02] MEDS: Metoprolol Tartrate 25 MG Tablet PO SCH ×2 (10:21→20:06)
[2018-10-02] MEDS: Lactobacillus Acidophilus/L. Spores Tablet PO SCH ×3 (10:21→17:05)
[2018-10-02] MEDS: Digoxin 125 MCG Tablet PO SCH (10:22)
[2018-10-02] MEDS: Insulin Detemir Inj 1,000 UNIT/10 ML Vial SQ SCH ×2 (10:22→20:07)
[2018-10-02] MEDS: Lactic Acid (Ammonium Lactate) 12% Lotion 225 GM Bottle TOPICAL SCH ×2 (10:22→20:12)
[2018-10-02] MEDS: Magnesium Oxide 400 MG Tablet PO SCH (10:22)
[2018-10-02] MEDS: Budesonide-Formoterol 160/4.5 MCG 6 GM Inhaler INH SCH ×2 (10:23→20:12)
[2018-10-02] MEDS: Insulin NovoLOG Aspart Correctional Sugar Inj SQ SCH ×4 (10:28→20:07)
[2018-10-02 10:30] LABS: INR 2.5 Ratio; Prothrombin Time 25.1 sec (9.8-11.6)
--- NOTE | 2018-10-02 12:37 | P.PNIM ---
Subjective Interval history: Pt seen and examined for f/u PEG site abscess s/p ID and removal of PEG, ESBL+ UTI and wound infection, and Enterococcus bacteremia. AFVSS. Tired of being in the hospital and wants to go home. No other complaints. Denies CP, SOB, abdominal pain, N/V. Physical Exam Vital signs: Vital Signs 10/01/18 15:18 10/01/18 16:00 10/01/18 20:00 Temperature 96.3 F L 97 F L Pulse Rate 51 L 68 60 Respiratory Rate 16 14 Blood Pressure 118/69 119/58 L Pulse Oximetry 92 L 95 10/01/18 20:01 10/02/18 00:00 10/02/18 04:00 Temperature Pulse Rate 99 H Respiratory Rate 21 18 20 Blood Pressure Pulse Oximetry 98 Intake & Output 10/01/18 10/02/18 10/02/18 18:59 06:59 18:59 Intake Total 1100 / 1100 200 / 200 Output Total 1400 / 1400 400 / 400 Balance -300 / -300 -200 / -200 Weight 120.9 kg Intake: IV 200 / 200 200 / 200 Zosyn 4.5 GM Premix 4.5 gm In 200 / 200 200 / 200 100 ml @ 200 mls/hr IV.SIG Q6H BECKY Rx#:[id number] Oral 900 / 900 Output: Urine 1400 / 1400 400 / 400 Other: Date of Last Bowel Movement 10/01/18 10/01/18 # Incontinent Bowel Movements 3 1 Narrative: GENERAL: Obese female resting in bed in [facility]. SKIN: Warm and dry. HEENT: AT/NC. Pupils equal and round. MMM. HEART: IRR no m/r/g. LUNGS: CTAB without wheezes or crackles. ABDOMEN: +BS, soft, NT, ND. Abdominal abscess packed with gauze. No surrounding erythema. EXTREMITIES: No LE edema. Calves supple and nontender. NEURO: Awake and alert. Nonfocal. - Urinary Catheter Management Straight Cath placed during this visit: no Results - Labs CBC & Chem 7: 09/30/18 06:30 09/30/18 06:30 Laboratory Results - last 24 hr 10/01/18 10/01/18 10/01/18 12:43 16:23 19:57 PT INR POC Glucose 183 H 178 H 239 H 1110/02/18 10/02/18 09:00 10:27 11:52 PT 25.1 H INR 2.5 POC Glucose 106 188 H - Procedures PEG tube removed. Tracheostomy tube removed. Status post Abdominal Wall I and D. Assessment and Plan - Assessment (1) Tachycardia Code(s): R00.0 - Tachycardia, unspecified Status: Acute (2) Acute UTI (urinary tract infection) Code(s): N39.0 - Urinary tract infection, site not specified Status: Acute (3) Respiratory failure Code(s): J96.90 - Respiratory failure, unspecified, unspecified whether with hypoxia or hypercapnia Status: Acute (4) Complication of feeding tube Code(s): K94.23 - Gastrostomy malfunction Status: Acute - Plan 68-year-old female with DM, HTN, HLD, morbid obesity, and depression admitted on 09/13 with erythema and swelling around her PEG site as well as a partially displaced PEG tube. She was prior hospitalized May 2018 for UTI/ sepsis complicated by interventions requiring tracheostomy and PEG tube placed. 1. PEG site infection - Patient meeting septic criteria on admission based on tachycardia, leukocytosis, fever, and source of infection - acute sepsis component resolved - CT A/P negative for drainable abscess but did show induration and small collections of soft tissue presumed infection around the G-tube tract - GI was consulted given PEG tube displacement which was ultimately removed on 09/13 in the ED - ST following, advanced patient's diet - Bedside I&D performed by general surgery on 09/22 (surgery consulted as patient was having fevers despite IV antibiotics as well as purulent drainage) - Wound grew Enterococcus faecium and Grecia on 09/13 and recultured on 09/20 after bedside I&D which grew ESBL+ Klebsiella, Grecia, and enterococcus - ID following - Continue Diflucan and Zosyn 2. Enterococcus bacteremia - Blood cultures + on 09/13 - Repeat on 09/14 NGTD - ID following - See antibiotics above 3. +ESBL Klebsiella/Grecia UTI - ID following - On Zosyn and Diflucan as above 4. Right pelvic mass - Seen on CT - Need to r/o ovarian malignancy and outpatient pelvic MRI recommended 5. Atrial fibrillation - Continue Coumadin - INR therapeutic at 2.5 - Continue Digoxin - Cardiology consulted earlier in course, added metoprolol - Continue to monitor daily INR 6. Chronic respiratory failure - resolved - Trach placed 06/15 and decannulated 09/23 - Off of supplemental O2 - Pulm following - Pulmonary toilet - Continue Symbicort 7. Diarrhea - C. diff negative - Lomotil PRN - Continue Lactinex 8. DM - Holding home PO meds - Continue Levemir and SSI - Monitor Accu-Cheks 9. Depression - Continue home Celexa - Ativan PRN DVT prophylaxis: anticoagulated on Coumadin Discharge Planning: Medically stable for discharge. Case management assisting with D/C needs. Placement pending.
--- NOTE | 2018-10-02 17:27 | P.PN ---
Subjective Interval history: No New pulmonary problems. Off O2 Trach site has healed. C/O some abdominal pains. Physical Exam Vital signs: Vital Signs 10/01/18 20:00 10/01/18 20:01 10/02/18 00:00 Temperature 97 F L Pulse Rate 60 99 H Respiratory Rate 21 18 Blood Pressure 119/58 L Pulse Oximetry 95 98 10/02/18 04:00 10/02/18 08:00 10/02/18 12:00 Temperature 98.6 F Pulse Rate 60 Respiratory Rate 20 14 14 Blood Pressure 120/60 Pulse Oximetry 95 10/02/18 16:00 Temperature 98.4 F Pulse Rate 77 Respiratory Rate 14 Blood Pressure 128/90 Pulse Oximetry 98 Intake & Output 10/01/18 10/02/18 10/02/18 18:59 06:59 18:59 Intake Total 1100 / 1100 200 / 200 1000 / 1000 Output Total 1400 / 1400 400 / 400 1400 / 1400 Balance -300 / -300 -200 / -200 -400 / -400 Weight 120.9 kg Intake: IV 200 / 200 200 / 200 100 / 100 Zosyn 4.5 GM Premix 4.5 gm In 200 / 200 200 / 200 100 / 100 100 ml @ 200 mls/hr IV.SIG Q6H BECKY Rx#:[id number] Oral 900 / 900 900 / 900 Output: Urine 1400 / 1400 400 / 400 1400 / 1400 Other: Date of Last Bowel Movement 10/01/18 10/01/18 10/02/18 # Incontinent Bowel Movements 3 1 4 Narrative: GENERAL: Obese female resting in bed in [facility]. SKIN: Warm and dry. HEENT: AT/NC. Pupils equal and round. MMM. HEART: IRR no m/r/g. LUNGS: Clear with no wheezes or crackles. ABDOMEN: +BS, soft, NT, ND. Abdominal abscess packed with gauze. No surrounding erythema. EXTREMITIES: No LE edema. NEURO: Awake and alert. Nonfocal. - Urinary Catheter Management Straight Cath placed during this visit: no Results - Labs CBC & Chem 7: 09/30/18 06:30 09/30/18 06:30 Laboratory Results - last 24 hr 10/01/18 10/02/18 10/02/18 19:57 09:00 10:27 PT 25.1 H INR 2.5 POC Glucose 239 H 106 11/11/18 11:52 PT INR POC Glucose 188 H - Procedures PEG tube removed. Tracheostomy tube removed. Status post Abdominal Wall I and D. Assessment and Plan - Assessment (1) Status post tracheostomy Code(s): Z93.0 - Tracheostomy status Status: Acute (2) Acute kidney injury Code(s): N17.9 - Acute kidney failure, unspecified Status: Acute (3) Acute UTI (urinary tract infection) Code(s): N39.0 - Urinary tract infection, site not specified Status: Acute (4) Hypoxia Code(s): R09.02 - Hypoxemia Status: Acute (5) SVT (supraventricular tachycardia) Code(s): I47.1 - Supraventricular tachycardia Status: Acute (6) Sepsis secondary to UTI Code(s): A41.9 - Sepsis, unspecified organism; N39.0 - Urinary tract infection, site not specified Status: Acute (7) Hypernatremia Code(s): E87.0 - Hyperosmolality and hypernatremia Status: Acute (8) Respiratory failure Code(s): J96.90 - Respiratory failure, unspecified, unspecified whether with hypoxia or hypercapnia Status: Acute - Plan 1. D/C O2 2. Up in chair as tolerated 3 Cont Antibiotics Per ID 4. IS q3h bedside 5. D/C Duoneb nebs 6. Ventolin HFA , 2 puffs TID PRN 7. Home soon
[2018-10-02] MEDS: LORazepam 1 MG Tablet PO PRN (20:06)
[2018-10-02] MEDS: Acetaminophen 325 MG Tablet PO PRN (20:06)
[2018-10-03] MEDS: Piperacil/Tazo 4.5 GM Premix 4.5 GM/100 ML BAG IV.SIG SCH ×2 (03:59→09:08)
[2018-10-03] MEDS: Lactic Acid (Ammonium Lactate) 12% Lotion 225 GM Bottle TOPICAL SCH (08:10)
[2018-10-03] MEDS: Insulin NovoLOG Aspart Correctional Sugar Inj SQ SCH ×2 (09:00→13:00)
[2018-10-03] MEDS: Budesonide-Formoterol 160/4.5 MCG 6 GM Inhaler INH SCH (09:08)
[2018-10-03] MEDS: Digoxin 125 MCG Tablet PO SCH (09:08)
[2018-10-03] MEDS: Metoprolol Tartrate 25 MG Tablet PO SCH (09:08)
[2018-10-03] MEDS: Insulin Detemir Inj 1,000 UNIT/10 ML Vial SQ SCH (09:10)
[2018-10-03] MEDS: predniSONE 5 MG Tablet PO SCH (09:12)
[2018-10-03] MEDS: Lactobacillus Acidophilus/L. Spores Tablet PO SCH ×2 (09:12→13:06)
[2018-10-03] MEDS: Magnesium Oxide 400 MG Tablet PO SCH (09:12)
[2018-10-03] MEDS: Diphenoxylate/Atropine 2.5/0.025 MG Tablet PO PRN (09:12)
[2018-10-03 10:02] LABS: INR 2.3 Ratio; Prothrombin Time 23.1 sec (9.8-11.6)
--- NOTE | 2018-10-03 13:00 | P.PNID ---
Subjective Remarks: Patient is a 68-year-old female, brought into the hospital for evaluation of her PEG tube. Patient was hospitalized here back in May and at that time she was treated for sepsis. She had a UTI, and also had what looks like an infection on 1 of her toes on the right foot. She ended up on the respirator, and has required continued ventilatory support, requiring tracheostomy. She also had a PEG tube placed at that time. She was discharged to [facility] towards the end of May, and apparently she was discharged around the second week in August and has been at home. Patient gets tube feedings 24 hours a day, and she still is able to eat some. She has a Passy- David valve on her trach. She stays mostly in bed, and sometimes dangles at the side of the bed, and she could stand up but does not really do any ambulation. Recently apparently she has been having problem with leaking around the PEG tube. She was also noted to have some swelling around the PEG tube site. She presented to the hospital, and she had a fever of 100.9. Her white count is elevated at 14,000. She had a CT of the abdomen and pelvis which did not show any evidence of intra-abdominal abscess, but it shows that the PEG is almost out with some debris along the PEG tube tract and some into the peritoneal cavity. The PEG was removed in the ED. She had a swallowing eval with no evidence of aspiration. Patient currently is on a T-piece. She denies any shortness of breath. Her abdominal pain is better. She is awake and alert. Her temperatures are better. BP is stable and she is not on any pressor support. 2 blood cultures were done in the ED and one blood culture is currently going growing enterococcus. Her chest x-ray is normal. Infectious disease consultation has been requested to evaluate the patient with positive blood culture. Notes reviewed D/W RN Temps ok Not SOB Swallowing ok Doing well C/S with Kleb ESBL+, enterococcus and crispin albicans WBC normal Antibiotics: Zosyn Diflucan Lines: PIV Past Medical History: MDRO (multiple drug resistant organisms) resistance Onset Date: ~09/13/18 Depression Diabetes Hypertension Hypertriglyceridemia Morbid obesity Tubal ligation PEG placement Tracheostomy Allergies/Adverse Reactions: Allergies No Known Allergies Allergy (Verified 05/30/18 22:08) Objective Vital Signs 10/02/18 16:00 10/02/18 19:53 10/03/18 00:00 Temperature 98.4 F 96.5 F L 96.3 F L Pulse Rate 77 66 53 L Respiratory Rate 14 16 16 Blood Pressure 128/90 124/65 142/71 H Pulse Oximetry 98 93 L 93 L 10/03/18 03:59 10/03/18 07:49 10/03/18 08:00 Temperature 96.3 F L 97.0 F L Pulse Rate 55 L 55 L Respiratory Rate 16 18 Blood Pressure 124/57 L 124/73 Pulse Oximetry 92 L 98 93 L Intake & Output 10/02/18 10/03/18 10/03/18 18:59 06:59 18:59 Intake Total 1100 / 1100 200 / 200 100 / 100 Output Total 1400 / 1400 500 / 500 450 / 450 Balance -300 / -300 -300 / -300 -350 / -350 Weight 120.9 kg Intake: IV 200 / 200 200 / 200 100 / 100 Zosyn 4.5 GM Premix 4.5 gm In 200 / 200 200 / 200 100 / 100 100 ml @ 200 mls/hr IV.SIG Q6H BECKY Rx#:[id number] Oral 900 / 900 Output: Urine 1400 / 1400 Urine Amount (Catheter) 500 / 500 450 / 450 Female External 500 / 500 450 / 450 Other: Date of Last Bowel Movement 10/02/18 10/02/18 10/03/18 # Bowel Movements 2 # Incontinent Bowel Movements 4 Lab - Chemistry Results 10/01/18 10/01/18 10/01/18 12:43 16:23 19:57 POC Glucose 183 H 178 H 239 H 10/02/18 10/02/18 10/02/18 10:27 11:52 18:30 POC Glucose 106 188 H 141 H 10/02/18 10/03/18 19:22 09:00 POC Glucose 223 H 111 H Imaging: ITS Impressions Videofluoroscopic Swallow 09/14/18 00:00 CONCLUSION: No evidence of penetration or aspiration. See full report by the speech pathologist. Abdomen/Pelvis CT 09/20/18 00:00 CONCLUSION: 1. No significant inflammation and induration around the patient's G-tube tract with a number of small soft tissue nodules medial to the tract could be additional areas of infection. There is no large drainable abscess just diffuse induration and small collections of soft tissue presumed infection. 2. Large fatty abdominal wall hernia in the left anterior abdomen. 3. Gallstones in a noninflamed gallbladder 4. Low-density but lobulated pelvic mass on the right. Need to rule out ovarian malignancy. Outpatient pelvic MRI is recommended Chest X-Ray 09/27/18 00:00 CONCLUSION: No acute disease Physical Exam: GENERAL: awake and alert, NAD SKIN: Cool and dry. No generalized rash EYES: [place] conjunctiva. No petechia or hemorrhage. No scleral icterus. No injection or drainage. EARS, NOSE AND THROAT: Mucous membranes pink and moist. No oral lesions noted. NECK: Previous trach site healing CARDIOVASCULAR: No murmurs, rubs or gallops heard RESPIRATORY: Coarse breath sounds sully, with scattered wheezing ABDOMEN: Soft, obese, previous PEG site with packing, redness gone, induration minimal, very little purulence, some bleeding. EXTREMITIES: No clubbing, cyanosis, or edema. No calf tenderness. NEUROLOGICAL: Non-focal PSYCHIATRIC: Normal affect, calm and cooperative. LINE: No evidence of infection Assessment and Plan - Plan Impression Bacteremia with Enterococcus, due to abdominal wall cellulitis from PEG malposition Abdominal wall cellulitis, abscess, markedly improved Seems to have another abscess below the open wound UTI Respiratory failure, S/P trach, has passey-david valve Hx possible osteo of toe R foot - currently no obvious evidence of infection Low grade temps, better - likely due to PEG site infection, better since the opening was made bigger and being drained and packed Recommendation Stop Zosyn Continue Diflucan Augmentin and Diflucan po x 10 more days on D/C Wound care Doing well from ID standpoint She has fup with surgery Explained plan to patient D/W RN D/W Dr Bailey (HEPAS)
--- NOTE | 2018-10-03 13:22 | P.DS ---
Date of admission: 09/13/18 19:15 Primary care physician: No Primary Care Physician Brief History from admission: Patient is a 68-year-old female with a past medical history of depression, diabetes, hypertension, hyperlipidemia, morbid obesity who was recently hospitalized May 2018 for UTI/sepsis. Hospitalization course at that admission was complicated and patient ended up being discharged home with a trach and PEG tube. She returned to the emergency room on 09/13/18 with erythema and swelling around her PEG site and a partially displaced PEG tube. Patient reports that she has been able to eat some food by mouth. She had only been using the PEG tube intermittently because it was not functioning properly. She denies any chest pain or shortness of breath. Has not had difficulty with her trach but would like to be removed if possible. No fever or chills. No dysuria. No nausea vomiting or diarrhea. Patient update on day of discharge: Patient reports she is feeling well. Eager to go home. No fevers. SEAN RN and infectious disease. DS: Diagnosis - Discharge Diagnosis (1) Infection of PEG site Status: Acute (2) Enterococcal bacteremia Status: Acute (3) Physical deconditioning Status: Acute DS: Medications - Discharge Medications Prescriptions: amoxicillin-pot clavulanate [Augmentin] 1 tab PO Q8HR 10 Days tab fluconazole 100 mg PO DAILY 10 Days #10 tab glipizide 5 mg PO BID 30 Days #60 tab metformin 1,000 mg PO BID 30 Days #60 tab metoprolol tartrate 25 mg PO BID #60 tab DS: Summary Hospital Course: 68-year-old female with DM, HTN, HLD, morbid obesity, and depression admitted on 09/13 with erythema and swelling around her PEG site as well as a partially displaced PEG tube. She was prior hospitalized May 2018 for UTI/ sepsis complicated by interventions requiring tracheostomy and PEG tube placed. Patient treated under the guidance of infectious disease. Her condition improved. Treatment course detailed below: 1. PEG site infection - Patient meeting septic criteria on admission based on tachycardia, leukocytosis, fever, and source of infection - acute sepsis component resolved - CT A/P negative for drainable abscess but did show induration and small collections of soft tissue presumed infection around the G-tube tract - GI was consulted given PEG tube displacement which was ultimately removed on 09/13 in the ED - ST followed, advanced patient's diet - Bedside I&D performed by general surgery on 09/22 (surgery consulted as patient was having fevers despite IV antibiotics as well as purulent drainage) - Wound grew Enterococcus faecium and Grecia on 09/13 and recultured on 09/20 after bedside I&D which grew ESBL+ Klebsiella, Grecia, and enterococcus - ID followed the patient. She was treated with Diflucan and Zosyn. Patient transitioned to oral antimicrobials per ID recs on discharge. 2. Enterococcus bacteremia - Blood cultures + on 09/13 - Repeat on 09/14 NGTD - ID following - See antibiotics above 3. +ESBL Klebsiella/Grecia UTI - treated as noted above. 4. Right pelvic mass - Seen on CT - Need to r/o ovarian malignancy and outpatient pelvic MRI recommended. Patient and family counseled. 5. Atrial fibrillation - Continue Coumadin - INR therapeutic - Continue Digoxin - Cardiology consulted earlier in course, added metoprolol - Continue to monitor INR outpatient 6. Chronic respiratory failure - resolved - Trach placed 06/15 and decannulated 09/23 - Off of supplemental O2 - Pulm followed - Continue Symbicort 7. Diarrhea - C. diff negative - Lomotil PRN - Continue Lactinex - Resolved 8. DM - Resume home PO meds on discharge. 9. Depression - Continue home Celexa - Time Spent with Patient Total time spent providing and/or coordinating discharge services: Greater than 30 minutes - Quality: VTE Deep Vein Thrombosis/Pulmonary Embolism Present on Admission: No Exam Vital signs: Vital Signs 10/02/18 16:00 10/02/18 19:53 10/03/18 00:00 Temperature 98.4 F 96.5 F L 96.3 F L Pulse Rate 77 66 53 L Respiratory Rate 14 16 16 Blood Pressure 128/90 124/65 142/71 H Pulse Oximetry 98 93 L 93 L 10/03/18 03:59 10/03/18 07:49 10/03/18 08:00 Temperature 96.3 F L 97.0 F L Pulse Rate 55 L 55 L Respiratory Rate 16 18 Blood Pressure 124/57 L 124/73 Pulse Oximetry 92 L 98 93 L Intake & Output 10/02/18 10/03/18 10/03/18 18:59 06:59 18:59 Intake Total 1100 / 1100 200 / 200 100 / 100 Output Total 1400 / 1400 500 / 500 450 / 450 Balance -300 / -300 -300 / -300 -350 / -350 Weight 120.9 kg Intake: IV 200 / 200 200 / 200 100 / 100 Zosyn 4.5 GM Premix 4.5 gm In 200 / 200 200 / 200 100 / 100 100 ml @ 200 mls/hr IV.SIG Q6H BECKY Rx#:[id number] Oral 900 / 900 Output: Urine 1400 / 1400 Urine Amount (Catheter) 500 / 500 450 / 450 Female External 500 / 500 450 / 450 Other: Date of Last Bowel Movement 10/02/18 10/02/18 10/03/18 # Bowel Movements 2 # Incontinent Bowel Movements 4 Narrative: GENERAL: Obese female resting in bed in [facility]. SKIN: Warm and dry. HEENT: AT/NC. Pupils equal and round. MMM. HEART: IRR no m/r/g. LUNGS: CTAB without wheezes or crackles. ABDOMEN: +BS, soft, NT, ND. Abdominal wound appear clean. No surrounding erythema. EXTREMITIES: No LE edema. Calves supple and nontender. NEURO: Awake and alert. Nonfocal. Results Procedures completed during hospitalization: PEG tube removed. Tracheostomy tube removed. Status post Abdominal Wall I and D. Labs on day of discharge: Labs from last 24 hours 10/03/18 10/03/18 10/03/18 12:54 09:00 09:00 PT 23.1 H INR 2.3 POC Glucose 172 H 111 H 10/02/18 10/02/18 19:22 18:30 PT INR POC Glucose 223 H 141 H - Impressions ITS Impressions Videofluoroscopic Swallow 09/14/18 00:00 CONCLUSION: No evidence of penetration or aspiration. See full report by the speech pathologist. Abdomen/Pelvis CT 09/20/18 00:00 CONCLUSION: 1. No significant inflammation and induration around the patient's G-tube tract with a number of small soft tissue nodules medial to the tract could be additional areas of infection. There is no large drainable abscess just diffuse induration and small collections of soft tissue presumed infection. 2. Large fatty abdominal wall hernia in the left anterior abdomen. 3. Gallstones in a noninflamed gallbladder 4. Low-density but lobulated pelvic mass on the right. Need to rule out ovarian malignancy. Outpatient pelvic MRI is recommended Chest X-Ray 09/27/18 00:00 CONCLUSION: No acute disease Discharge Plan - Discharge Disposition Patient Disposition: W/Home Health Service - Discharge Condition Condition: Stable - Discharge Order Discharge Orders: Discharge Order (Routine); Ordered 10/03/18 Ordered By: Sherwin Bailey - Physicians Team Primary Care Provider: Primary Care Lili Erickson Attending Provider: Sherwin Bailey Other Providers: Alec Orr MD ; Makayla Duarte MD ; Tone Dunn MD ; Zack Virk DO
--- NOTE | 2018-10-03 13:22 | P.DCO ---
- Diagnosis (1) Infection of PEG site Status: Acute (2) Enterococcal bacteremia Status: Acute (3) Physical deconditioning Status: Acute - Physical Therapy Order: Evaluate and treat, Improve ambulation, Strength and gait training - Home Health Nursing Order: Medical education, Signs/symptoms of disease process, Diabetic education , Wound care and dressing changes, Nursing assessment with vital signs - Case Management Consult Yes - Certification I have seen patient Virgen Scott on 10/03/18. My clinical findings support the need for the requested home health care services because: Deconditioned with increased weakness, Limited ability to care for self I certify that my clinical findings support that this patient is homebound because: Unsteady gait/balance
[2018-10-03] MEDS ORDERED: Amoxicillin/Clavulanate 500/125 MG Tablet PO SCH (14:00)
[2018-10-03] MEDS ORDERED: Fluconazole 100 MG Tablet PO SCH (14:00)
[2018-10-03 16:35] VITALS: BP 124/78; PULSE 68; RESP 18; TEMP 97.6; O2SAT 97
== END 2018-10-03 17:00 | disposition home health service (06) ==
LOC: NEDA 12:32 → NEPC 12:32 → HIMC 20:30 → H7ONC 09-14 18:28
PROVIDERS: ADMIT Family Medicine; ATTEND Family Medicine